=== PATIENT | female | born 1965 | race Caucasian/White ===

== ENCOUNTER 2017-07-12 17:24 | Inpatient (IN) | payer BC ==
[~2017-07-12] VITALS: Ht 162.6 cm; Wt 76.0 kg
[~2017-07-12 17:24] MED LIST: CHOL100027 PO; CLX20 PO; ETAN50IN2 SQ; FOLI1TAB8 PO; MELO7.5T7 PO; METHOTREXATE SQ; METO25TA4 PO; NRN300 PO; NRN600 PO; NUVIGIL PO; SITA1TAB PO; TPRSR/25 PO; ZOLP10TA PO
[2017-07-12] MEDS ORDERED: ALBUT/IPRATROP 3MG/0.5MG NEB 3 ML VIAL INH ONE (17:45)
--- NOTE | 2017-07-12 18:02 | DIAGNOSTIC IMAGING REPORT ---
CHEST ONE VIEW PORTABLE CLINICAL HISTORY: 51 years-old Female presenting with Sepsis. TECHNIQUE: Portable upright AP view of the chest was obtained. COMPARISON: 08/07/2015. FINDINGS: Atherosclerosis of aortic arch. Cardiac silhouette enlarged. Mild pulmonary vascular prominence. No focal opacity. No large effusion or pneumothorax. Osseous structures normal. Upper abdomen normal. IMPRESSION: 1. Cardiomegaly with possible mild volume overload. No focal infiltrate to suggest pneumonia or pulmonary edema. Electronically signed by: Conrad Davis M.D. 07/12/2017 6:00 PM Dictated Date/Time: 07/12/2017 6:00 PM
[2017-07-12 18:03] VITALS: PULSE 92; O2SAT 93
[2017-07-12] MEDS ORDERED: GABA-113 PO (18:03)
[2017-07-12 18:32] LABS: BASO % 0.3 %; BASO ABS # 0.02 K/uL (0-0.2); EOS % 0.6 %; EOS ABS # 0.05 K/uL (0-0.5); HEMATOCRIT 42.4 % (37-47); HEMOGLOBIN 14.7 g/dL (12.0-16.0); IG# 0.04 K/uL (0.00-0.02); LYMPH % 22.8 %; LYMPH ABS # 1.82 K/uL (1.2-3.4); MEAN CELL VOLUME 85.7 fL (80-100); MEAN CORPUSCULAR HEMOGLOBIN 29.7 pg (25-34); MEAN CORPUSCULAR HGB CONC 34.7 g/dl (32-36); MEAN PLATELET VOLUME 9.4 fL (7.4-10.4); MONO % 11.6 %; MONO ABS # 0.93 K/uL (0.11-0.59); NEUT % 64.2 %; NEUT ABS # 5.14 K/uL (1.4-6.5); PLATELET COUNT 150 K/uL (130-400); RED CELL DISTRIBUTION WIDTH CV 14.1 % (11.5-14.5); RED CELL DISTRIBUTION WIDTH SD 43.9 fL (36.4-46.3)
[2017-07-12 18:41] LABS: PTT PATIENT 30.8 SECONDS (21.0-31.0)
[2017-07-12] MEDS ORDERED: OPTIRAY 320 IV PRN (18:45)
[2017-07-12 18:59] LABS: ALBUMIN 3.5 gm/dl (3.4-5.0); CALCIUM 8.6 mg/dl (8.5-10.1); CREATININE 0.75 mg/dl (0.60-1.20); POTASSIUM 3.4 mmol/L (3.5-5.1)
[2017-07-12 19:01] LABS: TOTAL PROTEIN 7.5 gm/dl (6.4-8.2)
[2017-07-12 20:05] LABS: INFLUENZA A PCR Neg for Influ A (NEG); INFLUENZA B PCR Neg for Influ B (NEG)
--- NOTE | 2017-07-12 20:14 | DIAGNOSTIC IMAGING REPORT ---
(CHEST FOR PE) ANGIO WITH CLINICAL HISTORY: 51 years-old Female presenting with ^eval for PE ^hypoxic, cough, shortness of breath. TECHNIQUE: Multidetector CT angiography of the chest was performed after administration of intravenous contrast. 3-D volumetric and/or maximum intensity projection (MIP) images were subsequently reconstructed for review. IV contrast: 108 mL of Optiray 320. A dose lowering technique was used consistent with the principles of ALARA (as low as reasonably achievable). COMPARISON: None. CT DOSE (mGy.cm): The estimated cumulative dose is 500.11 mGy.cm. FINDINGS: Field Rep topogram: Unremarkable. Pulmonary vasculature: The study is adequate for assessment of the pulmonary vascular tree. No filling defect within the pulmonary arteries to suggest embolus. Main pulmonary artery enlarged measuring 3.6 cm in diameter. No flattening of the interventricular septum. No intracardiac filling defect. No reflux of contrast into the hepatic veins. Remaining chest: On soft tissue windows, normal thyroid and thoracic inlet. No axillary, supraclavicular, hilar, or mediastinal lymphadenopathy. Atherosclerosis of the aorta. Multichamber enlargement of the heart. Coronary artery calcification. Small pericardial effusion. No pleural effusion. Hepatic steatosis. On lung windows, patchy groundglass opacities in all 5 lobes minimal subsegmental bronchial debris. Bronchial wall thickening. Central airways patent. Evaluation of lung parenchyma is mildly degraded due to respiratory motion artifact. On bone windows, normal osseous structures. IMPRESSION: 1. No evidence of pulmonary embolus. 2. Patchy groundglass opacities involving all 5 lobes consistent with multifocal bronchopneumonia, likely atypical pneumonia. This should be followed to resolution. 3. Small pericardial effusion. 4. Hepatic steatosis. Electronically signed by: Conrad Davis M.D. 07/12/2017 8:12 PM Dictated Date/Time: 07/12/2017 8:06 PM
[2017-07-12] MEDS ORDERED: PIPERACILLIN/TAZOBACTAM 4.5 GM/100ML D5W IV STA (20:17)
[2017-07-12] MEDS ORDERED: AZITHROMYCIN IV 500 MG in DEXTROSE 5% 250ML 250 ML IV ONE (20:30)
--- NOTE | 2017-07-12 20:31 | EMERGENCY ROOM VISIT NOTE ---
History Report prepared by Dino: Franklyn Zeng Under the Supervision of: Dr. Leon Vargas M.D. First contact with patient: 17:37 Chief Complaint: ILLNESS Stated Complaint: FEVER, COUGH, LOW O2 History of Present Illness The patient is a 51 year old female who presents to the Emergency Room with complaints of constant dyspnea beginning three days ago. The patient states that she was at her doctor today who referred her to the emergency department for her low oxygen saturation. She notes that she was given a nebulizer treatment while at the doctors. She reports that she has been feeling ill for the last few days. The patient states that she has to make herself cough, and she notes that she brings up a clear/white substance when she coughs. She also complains of a fever, vomiting, and body aches. She notes that her fever has been between 100-103. She denies any CP, rhinorrhea, abdominal pain, congestion , sorethroat, and leg pain. She reports that she does not have a history of COPD and is not normally on oxygen. The patient states that she has a history of rheumatoid arthritis, ITP, still's disease, type two diabetes, and sleep apnea. Source of History: patient Onset: three days ago Position: chest Quality: other (SOB) Timing: constant Associated Symptoms: + fevers (100-103), + cough (productive), + vomiting, No sorethroat, No chest pain, No abdominal pain Note: The patient also complains of body aches. The patient also denies any rhinorrhea , congestion, and leg pain. Review of Systems See HPI for pertinent positives & negatives. A total of 10 systems reviewed and were otherwise negative. Past Medical & Surgical Medical Problems: (1) History of ITP (2) Hypoxia (3) Pneumonia (4) Rheumatoid arthritis (5) Sleep apnea (6) Still's disease (7) Type 2 diabetes mellitus Family History No pertinent family history stated. Social History Smoking Status: Current Every Day Smoker Alcohol Use: none Marital Status: Housing Status: lives with family Occupation Status: employed Current/Historical Medications Scheduled Cholecalciferol (Vitamin D 1000 Unit), 2,000 INTER.UNIT PO QPM Citalopram (Celexa *), 20 MG PO QPM Etanercept (Enbrel), 0.98 ML SQ WK Folic Acid (Folvite), 3 MG PO QPM Gabapentin (Neurontin), 600 MG PO TID Meloxicam (Mobic), 15 MG PO QPM Metoprolol Succinate (Metoprolol Succinate ER), 25 MG PO TID Sitagliptin-Metformin Hcl (Janumet Xr), Unknown Dose PO DAILY Zolpidem Tartrate (Ambien), 10 MG PO HS PRN Allergies Coded Allergies: No Known Allergies (Verified , 07/12/17) Physical Exam Vital Signs Date Time Temp Pulse Resp B/P (MAP) Pulse Ox O2 Delivery O2 Flow Rate FiO2 07/12/17 19:58 96 20 102/62 95 Nasal Cannula 6.0 07/12/17 19:08 102 91 Nasal Cannula 6.0 07/12/17 19:05 90 Nasal Cannula 6.0 07/12/17 18:53 130/71 07/12/17 18:52 101 18 94/62 95 Nebulizer 07/12/17 18:03 92 20 93 Nasal Cannula 5.0 07/12/17 17:32 38.2 101 18 117/79 83 Room Air Physical Exam Constitutional: Vital signs reviewed. Hypoxic on oxygen, oxygen saturation 83% on 4L. Eyes: Pupils are equal round reactive to light. Conjunctiva are noninjected. ENT: Pharynx is clear without erythema or exudate. Mucous membranes are moist. Neck supple without meningeal signs. Respiratory: Breath sounds equal bilaterally, diminished breath sounds bilaterally with inspiratory and expiratory wheezing. Cardiovascular: Regular rate and rhythm. No rubs or gallops. GI: Soft, nondistended and nontender. Bowel sounds are present. Musculoskeletal: No peripheral edema. No lower extremity tenderness. Integumentary: No cyanosis. Neurological: The patient is awake and alert. No focal deficits. Psychiatric: Normal affect. Medical Decision & Procedures ER Provider Diagnostic Interpretation: Radiology results as stated below per my review and the radiologist's interpretation: CHEST ONE VIEW PORTABLE CLINICAL HISTORY: 51 years-old Female presenting with Sepsis. TECHNIQUE: Portable upright AP view of the chest was obtained. COMPARISON: 08/07/2015. FINDINGS: Atherosclerosis of aortic arch. Cardiac silhouette enlarged. Mild pulmonary vascular prominence. No focal opacity. No large effusion or pneumothorax. Osseous structures normal. Upper abdomen normal. IMPRESSION: 1. Cardiomegaly with possible mild volume overload. No focal infiltrate to suggest pneumonia or pulmonary edema. Electronically signed by: Conrad Davis M.D. 07/12/2017 6:00 PM (CHEST FOR PE) ANGIO WITH CLINICAL HISTORY: 51 years-old Female presenting with ^eval for PE ^hypoxic, cough, shortness of breath. TECHNIQUE: Multidetector CT angiography of the chest was performed after administration of intravenous contrast. 3-D volumetric and/or maximum intensity projection (MIP) images were subsequently reconstructed for review. IV contrast: 108 mL of Optiray 320. A dose lowering technique was used consistent with the principles of ALARA (as low as reasonably achievable). COMPARISON: None. CT DOSE (mGy.cm): The estimated cumulative dose is 500.11 mGy.cm. FINDINGS: Filenet Architect topogram: Unremarkable. Pulmonary vasculature: The study is adequate for assessment of the pulmonary vascular tree. No filling defect within the pulmonary arteries to suggest embolus. Main pulmonary artery enlarged measuring 3.6 cm in diameter. No flattening of the interventricular septum. No intracardiac filling defect. No reflux of contrast into the hepatic veins. Remaining chest: On soft tissue windows, normal thyroid and thoracic inlet. No axillary, supraclavicular, hilar, or mediastinal lymphadenopathy. Atherosclerosis of the aorta. Multichamber enlargement of the heart. Coronary artery calcification. Small pericardial effusion. No pleural effusion. Hepatic steatosis. On lung windows, patchy groundglass opacities in all 5 lobes minimal subsegmental bronchial debris. Bronchial wall thickening. Central airways patent. Evaluation of lung parenchyma is mildly degraded due to respiratory motion artifact. On bone windows, normal osseous structures. IMPRESSION: 1. No evidence of pulmonary embolus. 2. Patchy groundglass opacities involving all 5 lobes consistent with multifocal bronchopneumonia, likely atypical pneumonia. This should be followed to resolution. 3. Small pericardial effusion. 4. Hepatic steatosis. Electronically signed by: Conrad Davis M.D. 07/12/2017 8:12 PM Laboratory Results 07/12/17 18:15 Red Blood Count 4.95, Mean Corpuscular Volume 85.7, Mean Corpuscular Hemoglobin 29.7, Mean Corpuscular Hemoglobin Concent 34.7, Mean Platelet Volume 9.4, Neutrophils (%) (Auto) 64.2, Lymphocytes (%) (Auto) 22.8, Monocytes (%) (Auto) 11.6, Eosinophils (%) (Auto) 0.6, Basophils (%) (Auto) 0.3, Neutrophils # (Auto ) 5.14, Lymphocytes # (Auto) 1.82, Monocytes # (Auto) 0.93, Eosinophils # (Auto ) 0.05, Basophils # (Auto) 0.02 07/12/17 18:15 Test 07/12/17 18:15 07/12/17 18:26 07/12/17 19:06 07/12/17 20:27 White Blood Count 8.00 K/uL (4.8-10.8) Red Blood Count 4.95 M/uL (4.2-5.4) Hemoglobin 14.7 g/dL (12.0-16.0) Hematocrit 42.4 % (37-47) Mean Corpuscular Volume 85.7 fL (80-100) Mean Corpuscular Hemoglobin 29.7 pg (25-34) Mean Corpuscular Hemoglobin Concent 34.7 g/dl (32-36) Platelet Count 150 K/uL (130-400) Mean Platelet Volume 9.4 fL (7.4-10.4) Neutrophils (%) (Auto) 64.2 % Lymphocytes (%) (Auto) 22.8 % Monocytes (%) (Auto) 11.6 % Eosinophils (%) (Auto) 0.6 % Basophils (%) (Auto) 0.3 % Neutrophils # (Auto) 5.14 K/uL (1.4-6.5) Lymphocytes # (Auto) 1.82 K/uL (1.2-3.4) Monocytes # (Auto) 0.93 K/uL (0.11-0.59) Eosinophils # (Auto) 0.05 K/uL (0-0.5) Basophils # (Auto) 0.02 K/uL (0-0.2) RDW Standard Deviation 43.9 fL (36.4-46.3) RDW Coefficient of Variation 14.1 % (11.5-14.5) Immature Granulocyte % (Auto) 0.5 % Immature Granulocyte # (Auto) 0.04 K/uL (0.00-0.02) Prothrombin Time 11.0 SECONDS (9.0-12.0) Prothromb Time International Ratio 1.0 (0.9-1.1) Activated Partial Thromboplast Time 30.8 SECONDS (21.0-31.0) Partial Thromboplastin Ratio 1.2 Anion Gap 7.0 mmol/L (3-11) Est Creatinine Clear Calc Drug Dose 88.6 ml/min Estimated GFR () 107.7 Estimated GFR (Non- 92.9 BUN/Creatinine Ratio 6.8 (10-20) Calcium Level 8.6 mg/dl (8.5-10.1) Total Bilirubin 0.5 mg/dl (0.2-1) Aspartate Amino Transf (AST/SGOT) 19 U/L (15-37) Alanine Aminotransferase (ALT/SGPT) 32 U/L (12-78) Alkaline Phosphatase 82 U/L (45-117) Total Protein 7.5 gm/dl (6.4-8.2) Albumin 3.5 gm/dl (3.4-5.0) Globulin 4.0 gm/dl (2.5-4.0) Albumin/Globulin Ratio 0.9 (0.9-2) Bedside Lactic Acid Venous 1.19 mmol/L (0.90-1.70) Influenza Type A (RT-PCR) Neg for Influ A (NEG) Influenza Type B (RT-PCR) Neg for Influ B (NEG) Laboratory results as reviewed by me. Medications Administered Medications (Trade) Dose Ordered Sig/Nino Route Start Time Stop Time Status Last Admin Dose Admin Albuterol/ Ipratropium (Duoneb) 12 ml ONE ONCE INH 07/12/17 17:45 07/12/17 17:46 DC 07/12/17 18:03 12 ML ECG Per My Interpretation Indication: other (chest tightness) Rate (beats per minute): 106 Rhythm: sinus tachycardia Findings: other (No ST elevation, no PVCs) ED Course 1738: The patient was evaluated in room A9. A complete history and physical exam was performed. 174: Duoneb 12ml INH 1753: I called out for respiratory. 1800: Respiratory came down to see the patient. They increased her O2 to 5L and she was 93%. They state that they would prefer not to put her on BiPAP at this time. I felt as thought this was reasonable. The patient will continue to use a nebulizer. 1821: I reevaluated and updated the patient. I recommended a CT chest and she is agreeable. 2019: I reevaluated and updated the patient on her test results. Discussed the patient's case with Dr. Lu - HospitalistTessa. He will evaluate the patient for further treatment and care. Medical Decision This is a 51-year-old female presents with fever, cough and shortness of breath. Differential diagnosis includes pneumonia, sepsis, influenza, ARDS, pulmonary embolism. I did perform a limited focused review of portions of the patient's old chart on the electronic medical record. The patient has had no recent pertinent visits to this hospital. I did evaluate the patient as noted above. Patient is presenting with shortness of breath. She has poor air entry bilaterally with inspiratory and expiratory wheezing. She has had a fever and states she forced herself to have a cough which is productive. IV access was established. The patient was placed on a continuous cardiac rn. I did treat her with an hour-long DuoNeb. I was going to place her on BiPAP because her O2 saturation was only in the 80s on 4 L. When respiratory arrived her O2 saturation came up to the 90s and so we held off on the BiPAP. I did order and personally review the patient's 12-lead EKG and chest x-ray as described above. Her chest x-ray shows cardiomegaly without evidence of pneumonia. I did order and review the patient's blood work as noted in the electronic medical record. After discussion with the patient, I did order a CT of the chest. I did review the images myself as well as the radiology report as described above. There is no evidence of pulmonary embolism. She does have diffuse groundglass opacities consistent with multifocal bronchopneumonia. I did treat her with IV Zithromax and Zosyn. I did discuss the test results with the patient. On reexamination her wheezing is much improved and her air entry is also improved. She is satting 93% on 4 L. I did discuss the case with the hospitalist and case work aide. Medication Reconcilliation Current Medication List: was personally reviewed by me Blood Pressure Screening Patient's blood pressure: Normal blood pressure Blood pressure disposition: Did not require urgent referral Impression Primary Impression: Hypoxia Additional Impression: Multifocal pneumonia Critical Care I have personally spent 40 minutes of critical care time in the direct management of this patient. This includes bedside care, interpretation of diagnostic studies, and testing, discussion with consultants, patient, and family members, and other required patient management activities. This 40 minutes is in excess of all separately billable procedures. Scribe Attestation The scribe's documentation has been prepared under my direct and personally reviewed by me in its entirety. I confirm that the note above accurately reflects all work, treatment, procedures, and medical decision making performed by me. Departure Information Dispostion Being Evaluated By Hospitalist Referrals Kely Campbell D.O. (PCP) Patient Instructions My [facility] Problem Qualifiers
[2017-07-12] MEDS ORDERED: GLUCAGON FOR INJ 1 MG VIAL SQ PRN (20:45)
[2017-07-12] MEDS ORDERED: ALUMINUM/MAGNESIUM/SIMETH (MAALOX MAX) 30 ML UDC PO PRN (20:45)
[2017-07-12] MEDS ORDERED: GLUCOSE 10 TABS/TUBE PO PRN (20:45)
[2017-07-12] MEDS ORDERED: ACETAMINOPHEN 325 MG TAB PO PRN (20:45)
[2017-07-12] MEDS ORDERED: DEXTROSE 50% 50 ML SYR IV PRN (20:45)
[2017-07-12] MEDS ORDERED: GLUCOSE 40% GEL 15 GM TUBE PO PRN (20:45)
[2017-07-12] MEDS ORDERED: MAGNESIUM HYDROXIDE SUSP 30 ML UDC PO PRN (20:45)
[2017-07-12] MEDS ORDERED: POLYETHYLENE (MIRALAX) 17 GM PACK PO PRN (20:45)
[2017-07-12] MEDS ORDERED: CARBOHYDRATES FOR HYPOGLYCEMIA PO PRN (20:45)
[2017-07-12] MEDS ORDERED: NITROGLYCERIN 0.4 MG SL PER TAB CHARGE SL PRN (20:45)
[2017-07-12] MEDS ORDERED: ONDANSETRON INJ 2 MG/ML 2 ML VIAL IV PRN (20:45)
[2017-07-12] MEDS ORDERED: CITALOPRAM 20 MG TAB PO SCH (21:00)
[2017-07-12] MEDS ORDERED: HEPARIN SOD 5000 UNIT/0.5 ML CARP SQ SCH (21:00)
--- NOTE | 2017-07-12 21:37 | History and Physical ---
History & Physical Date & Time of Service: July 12, 2017 at 21:36 Chief Complaint: Fever, Cough, Low O2 Primary Care Physician: Kely Campbell D.O. History of Present Illness Source: patient This is a 51-year-old female with history of RA on Enbrel, history of autoimmune thrombocytopenia ,type 2 diabetes Presented to ED with complaint of shortness of breath, cough, fever chills ongoing for the last 5 days Reports of dyspnea on exertion especially when climbing up flight of stairs No syncope Patient reports of having dry cough, decreased appetite since last Wednesday, developed diarrhea which lasted for about 3 days She noticed to have a fever 103 last night Denies of any sinus congestion or postnasal drip report of having intermittent wheeze for the last days, using her albuterol inhaler about every 4 hours with minimal relief No complaint of chest pain, no dizzy spell, no palpitation Patient has history of [id number] smoking She is on Enbrel weekly for history of rheumatoid arthritis Has not been taking her Enbrel for the last 2 weeks secondary to illness In the ER patient was found to be hypoxic with SPO2 88% in room air Oxygenation improved to 92% on 6 L O2 via nasal cannula-patient is not on home O2 During my time of interview patient states she feels completely fine Denies of any shortness of breath, no chest heaviness Afebrile in ER Past Medical/Surgical History Medical Problems: (1) Fever (2) History of ITP (3) Hypoxia (4) Pneumonia (5) Rheumatoid arthritis (6) Sleep apnea (7) Still's disease (8) Type 2 diabetes mellitus Social History Smoking Status: Current Every Day Smoker Marital Status: Housing status: lives with family Occupational Status: employed Immunizations History of Influenza Vaccine: No History of Tetanus Vaccine?: No History of Pneumococcal: No History of Hepatitis B Vaccine: No Multi-Drug Resistant Organisms History of MDRO: No Allergies Coded Allergies: No Known Allergies (Verified , 07/12/17) Home Medications Scheduled Cholecalciferol (Vitamin D 1000 Unit), 2,000 INTER.UNIT PO QPM Citalopram (Celexa *), 20 MG PO QPM Etanercept (Enbrel), 0.98 ML SQ WK Folic Acid (Folvite), 3 MG PO QPM Gabapentin (Neurontin), 600 MG PO TID Meloxicam (Mobic), 15 MG PO QPM Metoprolol Succinate (Metoprolol Succinate ER), 25 MG PO TID Sitagliptin-Metformin Hcl (Janumet Xr), Unknown Dose PO DAILY Zolpidem Tartrate (Ambien), 10 MG PO HS PRN Review of Systems Constitutional: + fever, + chills, + weakness, + fatigue Respiratory: + cough, + sputum, + wheezing, + shortness of breath, + dyspnea on exertion Cardiovascular: No chest pain, No orthopnea, No PND, No edema, No claudication , No palpitations, No problem reported Abdomen: + diarrhea Psychiatric: + anxiety Endocrine: + fatigue Physical Exam Vital Signs Date Time Temp Pulse Resp B/P (MAP) Pulse Ox O2 Delivery O2 Flow Rate FiO2 07/12/17 21:03 95 16 99/61 91 Nasal Cannula 6.0 07/12/17 19:58 96 20 102/62 95 Nasal Cannula 6.0 07/12/17 19:08 102 91 Nasal Cannula 6.0 07/12/17 19:05 90 Nasal Cannula 6.0 07/12/17 18:53 130/71 07/12/17 18:52 101 18 94/62 95 Nebulizer 07/12/17 18:03 92 20 93 Nasal Cannula 5.0 07/12/17 17:32 38.2 101 18 117/79 83 Room Air General Appearance: no apparent distress Head: normocephalic, atraumatic Eyes: normal inspection, PERRL, EOMI, sclerae normal Neck: thyroid normal, no JVD, no carotid bruits, trachea midline Respiratory/Chest: no respiratory distress, no accessory muscle use, + wheezing Cardiovascular: no JVD, no murmur, normal peripheral pulses, + bradycardia Abdomen/GI: normal bowel sounds, non tender, soft Extremities/Musculoskelatal: normal capillary refill, no pedal edema, normal range of motion (Family with) Neurologic/Psych: no motor/sensory deficits, alert, normal reflexes, oriented x 3 Skin: normal color, warm/dry, no rash Diagnostics Laboratory Results Results Past 24 Hours Test 07/12/17 18:15 07/12/17 18:26 07/12/17 19:06 07/12/17 20:35 Range/Units White Blood Count 8.00 4.8-10.8 K/uL Red Blood Count 4.95 4.2-5.4 M/uL Hemoglobin 14.7 12.0-16.0 g/dL Hematocrit 42.4 37-47 % Mean Corpuscular Volume 85.7 80-100 fL Mean Corpuscular Hemoglobin 29.7 25-34 pg Mean Corpuscular Hemoglobin Concent 34.7 32-36 g/dl Platelet Count 150 130-400 K/uL Mean Platelet Volume 9.4 7.4-10.4 fL Neutrophils (%) (Auto) 64.2 % Lymphocytes (%) (Auto) 22.8 % Monocytes (%) (Auto) 11.6 % Eosinophils (%) (Auto) 0.6 % Basophils (%) (Auto) 0.3 % Neutrophils # (Auto) 5.14 1.4-6.5 K/uL Lymphocytes # (Auto) 1.82 1.2-3.4 K/uL Monocytes # (Auto) 0.93 0.11-0.59 K/uL Eosinophils # (Auto) 0.05 0-0.5 K/uL Basophils # (Auto) 0.02 0-0.2 K/uL RDW Standard Deviation 43.9 36.4-46.3 fL RDW Coefficient of Variation 14.1 11.5-14.5 % Immature Granulocyte % (Auto) 0.5 % Immature Granulocyte # (Auto) 0.04 0.00-0.02 K/uL Prothrombin Time 11.0 9.0-12.0 SECONDS Prothromb Time International Ratio 1.0 0.9-1.1 Activated Partial Thromboplast Time 30.8 21.0-31.0 SECONDS Partial Thromboplastin Ratio 1.2 Sodium Level 139 136-145 mmol/L Potassium Level 3.4 3.5-5.1 mmol/L Chloride Level 105 98-107 mmol/L Carbon Dioxide Level 27 21-32 mmol/L Anion Gap 7.0 3-11 mmol/L Blood Urea Nitrogen 5 7-18 mg/dl Creatinine 0.75 0.60-1.20 mg/dl Est Creatinine Clear Calc Drug Dose 88.6 ml/min Estimated GFR () 107.7 Estimated GFR (Non- 92.9 BUN/Creatinine Ratio 6.8 10-20 Random Glucose 124 70-99 mg/dl Calcium Level 8.6 8.5-10.1 mg/dl Total Bilirubin 0.5 0.2-1 mg/dl Aspartate Amino Transf (AST/SGOT) 19 15-37 U/L Alanine Aminotransferase (ALT/SGPT) 32 12-78 U/L Alkaline Phosphatase 82 45-117 U/L Total Protein 7.5 6.4-8.2 gm/dl Albumin 3.5 3.4-5.0 gm/dl Globulin 4.0 2.5-4.0 gm/dl Albumin/Globulin Ratio 0.9 0.9-2 Bedside Lactic Acid Venous 1.19 0.90-1.70 mmol/L Influenza Type A (RT-PCR) Neg for Influ A NEG Influenza Type B (RT-PCR) Neg for Influ B NEG Arterial Blood pH 7.38 7.35-7.45 Arterial Blood Partial Pressure CO2 45 35-46 mmHg Arterial Blood Partial Pressure O2 63 80-95 mm/Hg Arterial Blood HCO3 26 19-24 mmol/L Arterial Blood Oxygen Saturation 90.8 90-95 % Arterial Blood Base Excess 0.2 -9-1.8 mEq/L Arterial Blood Gas Delivery 6 L Quique Test POS POS Test 07/12/17 20:46 Range/Units Procalcitonin 0.06 0-0.5 ng/ml Microbiology Results 07/12/17 Blood Culture, Received Pending 07/12/17 Blood Culture, Received Pending Diagnostic Radiology CT CHEST WITH CONTRAST : IMPRESSION: 1. No evidence of pulmonary embolus. 2. Patchy groundglass opacities involving all 5 lobes consistent with multifocal bronchopneumonia, likely atypical pneumonia. This should be followed to resolution. 3. Small pericardial effusion. 4. Hepatic steatosis. EKG Normal sinus rhythm Prolonged QTC more than 500 Impression Assessment and Plan ACUTE HYPOXEMIC RESPIRATORY FAILURE/SECONDARY TO PNEUMONIA/COPD EXACERBATION CT chest with contrast shows no evidence of PE/ground glass opacity -multilobar pneumonia worsening of respiratory status secondary to immunocompromised status on Enbrel for RA/possible underlying COPD due to prolonged history of smoking Continue supplemental O2 Empiric antibiotic with IV Zosyn As needed neb treatment Repeat chest x-ray in next 48 hours to's evaluate for improvement Ordered for IV steroids secondary to wheeze Pulmonology eval requested Patient may need to step exercise prior to discharge to assess for home oxygen needs DIARRHEA Resolved approximately 2 days ago-per patient Ordered for C. difficile toxin assay HYPOKALEMIA Possible secondary to GI loss/diarrhea Replaced in ER Continue to monitor PRP Check mag level PROLONGED QTC Avoid medication that can worsen QTC prolongation Zithromax /Zofran discontinued Avoid quinolones Follow daily pick up man potassium/magnesium level closely HISTORY OF TOBACCO ABUSE Smokes a pack of cigarettes a day Ordered for nicotine patch Smoking cessation counseling provided HISTORY OF RHEUMATOID ARTHRITIS On Enbrel q. weekly Patient has not taken it last 2 weeks secondary to illness We will continue to hold due to multilobar pneumonia HISTORY OF AUTOIMMUNE THROMBOCYTOPENIA Platelet count within normal limits 150 K CODE STATUS: Full code DVT PROPHYLAXIS: Low risk Patient is active at baseline SCD and teds/patient is encouraged to ambulate Pharmacological anticoagulation avoided for history of autoimmune thrombocytopenia DISPOSITION: Expected to be discharged home when medically stable Medicine follow-up with Dr. Kely brooks that at [facility] Level of Care Telemetry Resuscitation Status FULL RESUSCITATION VTE Prophylaxis Risk Level: Moderate Given or contraindicated: T.E.D. Stockings, SCD's
[2017-07-12] MEDS ORDERED: PIPERACILL/TAZOBAC CONSULT ACTIVE PRN (21:45)
[2017-07-12] MEDS ORDERED: PROMETHAZINE HCL INJ 12.5 MG in SODIUM CHLORIDE 0.9% 50ML 50 ML IV PRN (21:45)
[2017-07-12] MEDS ORDERED: CEFTRIAXONE SOD INJ 1 GM in DEXTROSE 5% ADD-VANTAGE 50ML 50 ML IV SCH (22:00)
[2017-07-12 22:44] VITALS: O2SAT 93; BMI 29.3
[2017-07-12] MEDS ORDERED: NSS + 20MEQ KCL 1000ML 1,000 ML IV SCH (23:00)
[2017-07-12] MEDS: PIPERACILL/TAZOBAC IV 3.375 GM in DEXTROSE 5% 100ML 100 ML IV SCH (23:42)
[2017-07-12] MEDS: LEVALBUTEROL 1.25MG/0.5ML NEB INH SCH (23:46)
[2017-07-12] MEDS: IPRATROPIUM BROMIDE NEB SOLN 0.02% 2.5 ML VIAL INH SCH (23:47)
[2017-07-12 23:48] VITALS: PULSE 93; O2SAT 92
[2017-07-12 23:59] VITALS: O2SAT 92
[2017-07-13] VITALS (12 sets, daily range): BP systolic 118–139; BP diastolic 69–97; PULSE 80–101; TEMP 37.2–37.9; O2SAT 91–99; BMI 29.4
[2017-07-13] MEDS ORDERED: LEVALBUTEROL/IPRATROPIUM NEB INH SCH
[2017-07-13] MEDS: METOPROLOL SUCC 25MG EXT REL TAB PO SCH ×4 (00:14→20:56)
[2017-07-13] MEDS: GABAPENTIN 300 MG CAP PO SCH ×4 (00:14→20:56)
[2017-07-13] MEDS: CHOLECALCIFEROL 1000 INTER.UNIT TAB PO SCH ×2 (00:16→20:56)
[2017-07-13] MEDS: NICOTINE 21 MG/24 HR TDSY TD SCH ×2 (00:16→07:56)
[2017-07-13] MEDS: ZOLPIDEM TARTRATE 10 MG TAB PO PRN (00:17)
[2017-07-13] MEDS: INSULIN ASPART 100 UNITS/ML 3 ML PEN SC SCH ×5 (00:22→20:58)
[2017-07-13] MEDS: IPRATROPIUM BROMIDE NEB SOLN 0.02% 2.5 ML VIAL INH SCH ×6 (04:00→22:44)
[2017-07-13] MEDS: LEVALBUTEROL 1.25MG/0.5ML NEB INH SCH ×6 (04:00→22:44)
[2017-07-13 04:40] LABS: HEMATOCRIT 41.4 % (37-47); HEMOGLOBIN 13.8 g/dL (12.0-16.0); MEAN CELL VOLUME 87.5 fL (80-100); MEAN CORPUSCULAR HEMOGLOBIN 29.2 pg (25-34); MEAN CORPUSCULAR HGB CONC 33.3 g/dl (32-36); MEAN PLATELET VOLUME 10.1 fL (7.4-10.4); PLATELET COUNT 161 K/uL (130-400); RED CELL DISTRIBUTION WIDTH SD 45.4 fL (36.4-46.3); WHITE BLOOD COUNT 7.04 K/uL (4.8-10.8)
[2017-07-13 05:00] LABS: CALCIUM 8.1 mg/dl (8.5-10.1); CREATININE 0.93 mg/dl (0.60-1.20); POTASSIUM 3.3 mmol/L (3.5-5.1)
[2017-07-13 06:23] LABS: HEMOGLOBIN A1C 8.1 % (4.5-5.6)
[2017-07-13] MEDS ORDERED: POTASSIUM CHLORIDE 20 MEQ TABCR PO ONE (07:00)
[2017-07-13] MEDS: PIPERACILL/TAZOBAC IV 3.375 GM in DEXTROSE 5% 100ML 100 ML IV SCH ×2 (07:59→16:22)
[2017-07-13] MEDS ORDERED: AZITHROMYCIN 250 MG TAB PO SCH (09:00)
--- NOTE | 2017-07-13 11:19 | Progress Note ---
Medicine Progress Note Date & Time of Visit: July 13, 2017 at 11:19. Subjective seen resting in bed, comfortable states she feels slightly better than yesterday less shortness of breath denies cough, chest pain no abdominal pain, diarrhea no other symptoms Objective Last 8 Hrs Date Time Temp Pulse Resp B/P (MAP) Pulse Ox O2 Delivery O2 Flow Rate FiO2 07/13/17 10:44 37.7 29 131/97 (108) 92 High Flow Oxygen 7.0 07/13/17 08:00 Mask 7.0 07/13/17 07:25 101 18 94 Mask 7.0 07/13/17 06:57 37.9 89 26 139/94 (109) 93 6.0 07/13/17 04:00 92 Nasal Cannula 6.0 07/13/17 03:32 37.3 95 22 134/69 (90) 92 Physical Exam: General- oriented x 3, not in distress, speaks in sentences with no effort Head- atraumatic Eyes- PERRL, EOMI, anicteric ENT- oropharynx clear Neck- supple, no JVD Lungs- clear breath sounds bilaterally, no rales/wheezes Heart- regular rhythm; no murmur, normal rate Abdomen- normal bowel sounds, soft, nontender, non distended Extremities- no pretibial edema, no calf tenderness; peripheral pulses intact Neuro- alert, oriented x 3; no gross focal deficits Skin- warm & dry Laboratory Results: Last 24 Hours Test 07/12/17 18:15 07/12/17 18:26 07/12/17 19:06 07/12/17 20:35 White Blood Count 8.00 K/uL Red Blood Count 4.95 M/uL Hemoglobin 14.7 g/dL Hematocrit 42.4 % Mean Corpuscular Volume 85.7 fL Mean Corpuscular Hemoglobin 29.7 pg Mean Corpuscular Hemoglobin Concent 34.7 g/dl Platelet Count 150 K/uL Mean Platelet Volume 9.4 fL Neutrophils (%) (Auto) 64.2 % Lymphocytes (%) (Auto) 22.8 % Monocytes (%) (Auto) 11.6 % Eosinophils (%) (Auto) 0.6 % Basophils (%) (Auto) 0.3 % Neutrophils # (Auto) 5.14 K/uL Lymphocytes # (Auto) 1.82 K/uL Monocytes # (Auto) 0.93 K/uL Eosinophils # (Auto) 0.05 K/uL Basophils # (Auto) 0.02 K/uL RDW Standard Deviation 43.9 fL RDW Coefficient of Variation 14.1 % Immature Granulocyte % (Auto) 0.5 % Immature Granulocyte # (Auto) 0.04 K/uL Prothrombin Time 11.0 SECONDS Prothromb Time International Ratio 1.0 Activated Partial Thromboplast Time 30.8 SECONDS Partial Thromboplastin Ratio 1.2 Sodium Level 139 mmol/L Potassium Level 3.4 mmol/L Chloride Level 105 mmol/L Carbon Dioxide Level 27 mmol/L Anion Gap 7.0 mmol/L Blood Urea Nitrogen 5 mg/dl Creatinine 0.75 mg/dl Est Creatinine Clear Calc Drug Dose 88.6 ml/min Estimated GFR () 107.7 Estimated GFR (Non- 92.9 BUN/Creatinine Ratio 6.8 Random Glucose 124 mg/dl Calcium Level 8.6 mg/dl Total Bilirubin 0.5 mg/dl Aspartate Amino Transf (AST/SGOT) 19 U/L Alanine Aminotransferase (ALT/SGPT) 32 U/L Alkaline Phosphatase 82 U/L Total Protein 7.5 gm/dl Albumin 3.5 gm/dl Globulin 4.0 gm/dl Albumin/Globulin Ratio 0.9 Bedside Lactic Acid Venous 1.19 mmol/L Influenza Type A (RT-PCR) Neg for Influ A Influenza Type B (RT-PCR) Neg for Influ B Arterial Blood pH 7.38 Arterial Blood Partial Pressure CO2 45 mmHg Arterial Blood Partial Pressure O2 63 mm/Hg Arterial Blood HCO3 26 mmol/L Arterial Blood Oxygen Saturation 90.8 % Arterial Blood Base Excess 0.2 mEq/L Arterial Blood Gas Delivery 6 L Quique Test POS Test 07/12/17 20:46 07/13/17 00:01 07/13/17 04:00 07/13/17 07:31 Procalcitonin 0.06 ng/ml Bedside Glucose 183 mg/dl 154 mg/dl White Blood Count 7.04 K/uL Red Blood Count 4.73 M/uL Hemoglobin 13.8 g/dL Hematocrit 41.4 % Mean Corpuscular Volume 87.5 fL Mean Corpuscular Hemoglobin 29.2 pg Mean Corpuscular Hemoglobin Concent 33.3 g/dl RDW Standard Deviation 45.4 fL RDW Coefficient of Variation 14.0 % Platelet Count 161 K/uL Mean Platelet Volume 10.1 fL Sodium Level 141 mmol/L Potassium Level 3.3 mmol/L Chloride Level 106 mmol/L Carbon Dioxide Level 28 mmol/L Anion Gap 7.0 mmol/L Blood Urea Nitrogen 5 mg/dl Creatinine 0.93 mg/dl Est Creatinine Clear Calc Drug Dose 72.9 ml/min Estimated GFR () 83.1 Estimated GFR (Non- 71.7 BUN/Creatinine Ratio 5.0 Random Glucose 214 mg/dl Estimated Average Glucose 186 mg/dl Hemoglobin A1c 8.1 % Calcium Level 8.1 mg/dl Magnesium Level 1.8 mg/dl Date/Time Source Procedure Growth Status 07/12/17 19:09 Blood Blood Culture Pending Received 07/12/17 18:15 Blood Blood Culture Pending Received 07/13/17 01:20 Nasal MRSA DNA Surveillance Screen - Final Specimen Negative for MRSA by DNA Probe Complete 07/13/17 08:15 Stool C.difficile Toxin B Gene (PCR) - Final Positive for C. difficile toxin B gene Complete 07/13/17 07:50 Sputum Expectorated Sputum Gram Stain Pending Received 07/13/17 07:50 Sputum Expectorated Sputum Sputum Culture Pending Received Assessment & Plan 51 year old female with history of Rheumatoid Arthritis on Enbrel, Autoimmune Thrombocytopenia, DM presenting with cough and shortness of breath. ACUTE HYPOXEMIC RESPIRATORY FAILURE/SECONDARY TO PNEUMONIA/COPD EXACERBATION CT chest with contrast shows no evidence of PE/ground glass opacity -multilobar pneumonia worsening of respiratory status secondary to immunocompromised status on Enbrel for RA/possible underlying COPD due to prolonged history of smoking Sputum culture: pending Nasal MRSA swab: negative add Doxycycline to Zosyn IV Day 2 continue Nebs Pulmonary consulted C DIFF DIARRHEA start Vanco PO day 03/10 HYPOKALEMIA Possible secondary to GI loss/diarrhea replace, monitor also monitor Mg PROLONGED QTC resolved HISTORY OF TOBACCO ABUSE Smokes a pack of cigarettes a day Nicotine patch Smoking cessation counseling provided HISTORY OF RHEUMATOID ARTHRITIS On Enbrel q. weekly Patient has not taken it last 2 weeks secondary to illness Continue to HOLD due to multilobar pneumonia HISTORY OF AUTOIMMUNE THROMBOCYTOPENIA Platelet count within normal limits 150 K CODE STATUS: Full code DVT PROPHYLAXIS: Low risk Patient is active at baseline SCD and teds/patient is encouraged to ambulate Pharmacological anticoagulation avoided for history of autoimmune thrombocytopenia -- consider Lovenox if with prolonged hospitalization DISPOSITION: Expected to be discharged home when medically stable Medicine follow-up with Dr. Adrian lozano [facility] Current Inpatient Medications: Current Inpatient Medications Medications (Trade) Dose Ordered Sig/Nino Route Start Time Stop Time Status Last Admin Dose Admin Ioversol (Optiray 320) 100 ml UD PRN IV 07/12/17 18:45 07/16/17 18:44 Cholecalciferol (Vitamin D Tab) 2,000 inter.unit QPM PO 07/12/17 21:00 08/11/17 20:59 07/13/17 00:16 2,000 INTER.UNIT Folic Acid (Folvite Tab) 3 mg QPM PO 07/12/17 21:00 08/11/17 20:59 07/13/17 00:38 3 MG Gabapentin (Neurontin Cap) 600 mg TID PO 07/12/17 21:00 08/11/17 20:59 07/13/17 07:55 600 MG Metoprolol Succinate (Toprol Xl Tab) 25 mg TID PO 07/12/17 21:00 08/11/17 20:59 07/13/17 07:55 25 MG Zolpidem Tartrate (Ambien Tab) 10 mg HSZ PRN PO 07/12/17 20:45 08/11/17 20:44 07/13/17 00:17 10 MG Acetaminophen (Tylenol Tab) 650 mg Q4H PRN PO 07/12/17 20:45 08/11/17 20:44 Al Hydrox/Mg Hydrox/Simethicone (Maalox Max Susp) 15 ml Q4H PRN PO 07/12/17 20:45 08/11/17 20:44 Magnesium Hydroxide (Milk Of Magnesia Susp) 30 ml Q12H PRN PO 07/12/17 20:45 08/11/17 20:44 Nitroglycerin (Nitrostat Tab) 0.4 mg UD PRN SL 07/12/17 20:45 08/11/17 20:44 Polyethylene (Miralax Powder Packet) 17 gm DAILY PRN PO 07/12/17 20:45 08/11/17 20:44 Insulin Aspart (novoLOG ASPART) SLIDING SCALE If C... ACHS SC 07/12/17 21:00 08/11/17 20:59 07/13/17 07:58 3 UNITS Glucose (Glucose 40% Gel) 15-30 GRAMS 15 GRAMS... UD PRN PO 07/12/17 20:45 08/11/17 20:44 Glucose (Glucose Chew Tab) 4-8 Tablets 4 Tabl... UD PRN PO 07/12/17 20:45 08/11/17 20:44 Dextrose (Dextrose 50% 50ML Syringe) 25-50ML 25ML FOR ... UD PRN IV 07/12/17 20:45 08/11/17 20:44 Glucagon (Glucagon Inj) 1 mg UD PRN SQ 07/12/17 20:45 08/11/17 20:44 Carbohydrates (Carbohydrates For Hypoglycemia) 15-30 GRAMS 15 grams if BSG 54-69... UD PRN PO 07/12/17 20:45 08/11/17 20:44 Ipratropium [place] (Atrovent 0.02% 0.5MG/2.5ML Neb) 0.5 mg Q4R INH 07/13/17 00:00 08/12/17 00:00 07/13/17 07:25 0.5 MG Levalbuterol (Xopenex 1.25MG/ 0.5ML Neb) 1.25 mg Q4R INH 07/13/17 00:00 08/12/17 00:00 07/13/17 07:25 1.25 MG Nicotine (Nicoderm Cq 21MG Patch) 1 patch QAM TD 07/12/17 21:45 08/11/17 21:44 07/13/17 07:56 1 PATCH Miscellaneous (Remove Nicoderm Patch) 1 ea HS N/A 07/13/17 21:00 08/12/17 20:59 Piperacillin Sod/ Tazobactam Sod 3.375 gm/Dextrose 115 ml @ 28 mls/hr Q8H IV 07/13/17 00:00 07/20/17 00:00 07/13/17 07:59 28 MLS/HR Miscellaneous Information (Consult) 1 ea UD PRN N/A 07/12/17 21:45 08/11/17 21:44 Promethazine HCl 12.5 mg/Sodium Chloride 50.5 ml @ 204 mls/hr Q6H PRN IV 07/12/17 21:45 08/11/17 21:44 Doxycycline Hyclate 100 mg/ Dextrose 110 ml @ 50 mls/hr Q12H IV 07/13/17 09:00 07/20/17 08:59
[2017-07-13] MEDS: DOXYCYCLINE IV 100 MG in DEXTROSE 5% 100ML 100 ML IV SCH ×2 (11:29→21:00)
[2017-07-13] MEDS ORDERED: VANCOMYCIN HCL 125 MG/2.5ML SOLN PO SCH (11:30)
[2017-07-13] MEDS: RASPBERRY SYRUP 5 ML UDP PO SCH ×2 (11:59→17:50)
[2017-07-13] MEDS: VANCOMYCIN HCL 125 MG/2.5ML SOLN PO SCH ×2 (11:59→17:50)
--- NOTE | 2017-07-13 17:07 | PULMONARY CONSULTATION ---
DATE OF CONSULTATION: 07/13/2017 REASON FOR CONSULTATION: Bronchopneumonia. HISTORY OF PRESENT ILLNESS: A 51-year-old white female with a history of rheumatoid arthritis, currently on Enbrel and a history of autoimmune thrombocytopenia, type 2 diabetes mellitus and a significant smoking history, was admitted through the ER onto the hospitalist service today. The patient has been ill for the past 5-7 days, initially with GI symptoms and then upper respiratory infection with rigors, chills. She has intermittently been a smoker for many years, tends to smoke greater amounts during times of stress. She has had a dry nonproductive cough since Wednesday along with diarrhea for the past several days. Her temperature reached 103 associated with rigors last night. In all total, she has a 91-[id number]-[id number]-year smoking history. She has been on weekly injections with Enbrel for her rheumatoid disease and has been on steroid therapy in the past. In the ER, saturations were 88%. She was placed on 6 L oxymask with adequate saturations. She states she feels better this afternoon than she did earlier today. CT scan of the chest showed no evidence of pulmonary thromboembolic disease but patchy ground-glass opacities resolved virtually in all 5 lobes and a small pericardial effusion was noted. She denies previous history of pneumonia, but has been followed by Dr. Pack in the past who was also a personal friend with his family having belong to their [employer]. Her white count was normal at 7000. Potassium 3.3. Her hemoglobin A1c was 8.1. Influenza A and B PCR was negative and she has a son who has been ill for the past week as well. When asked if she had a history of asthma, she stated that she has "stress-induced asthma." She further explains that when she is under periods of stress, she begins to smoke. She was a patient of Dr. Pack for her asthma in the past. Those records are not available to me currently. In 2011, when she was admitted, an echocardiogram showed [id number] concentric LVH, but no evidence for left ventricular outflow obstruction was noted. No wall motion abnormalities were seen. Systolic anterior motion of the anterior mitral leaflet was no longer present. She had been started on Toprol-XL at that time. Details of past medical history, medications, family and social history, I refer you to current workup. The patient was admitted in 2011 with syncope. At that time, she was working for [employer] for [employer] in [place] and apparently had a syncopal episode x4. PAST MEDICAL HISTORY: Pertinent for Still disease, tubal ligation, 3 C-sections, depression, diabetes mellitus, and rheumatoid arthritis on chronic immunosuppression. PHYSICAL EXAMINATION: GENERAL: Well-developed, well-nourished white female, appearing mildly dyspneic at rest with speech. VITAL SIGNS: Temperature 37.7, pulse 86 and regular, respiratory rate 24, blood pressure 133/73, O2 sat 99% on 5 L, oxymask. SKIN: Without lesion. HEENT: Atraumatic, normocephalic, PERRLA, EOMI. Conjunctivae pale. Sclerae nonicteric. Fundi poorly visualized. NECK: Veins not distended at 45 degrees. No evidence of adenopathy in the supra or infraclavicular areas. LUNGS: Distant P and A. No audible wheezes. CARDIAC: Regular rate and rhythm. I do not appreciate a gallop. ABDOMEN: Soft, scaphoid. EXTREMITIES: No pedal edema, clubbing or cyanosis. NEUROLOGIC: Intact. No lateralizing signs. OVERALL ASSESSMENT: A 51-year-old with rheumatoid arthritis on chronic immunosuppression, admitted with a 5-7 day prodrome and clearly with multifocal pneumonia, somewhat atypical in presentation, currently being covered with oral vancomycin for (chronic C. diff), IV doxycycline, IV Zosyn. Given her immunosuppression and chronic smoking history, we will need to watch carefully for any signs of impending respiratory distress. Drug-induced pneumonitis would seem less likely given the fever. We will make sure the patient has ordered mycoplasma and legionella antibodies IgA, IgM and IgG and will follow along with you. Thank you very much for this consultation.
[2017-07-14] VITALS (12 sets, daily range): BP systolic 131–141; BP diastolic 81–88; PULSE 77–96; TEMP 36.8–37.8; O2SAT 92–98
[2017-07-14] MEDS: PIPERACILL/TAZOBAC IV 3.375 GM in DEXTROSE 5% 100ML 100 ML IV SCH ×3 (00:06→16:17)
[2017-07-14] MEDS: VANCOMYCIN HCL 125 MG/2.5ML SOLN PO SCH ×4 (00:06→17:54)
[2017-07-14] MEDS: ZOLPIDEM TARTRATE 10 MG TAB PO PRN (00:06)
[2017-07-14] MEDS: RASPBERRY SYRUP 5 ML UDP PO SCH ×4 (00:07→17:54)
[2017-07-14] MEDS: IPRATROPIUM BROMIDE NEB SOLN 0.02% 2.5 ML VIAL INH SCH ×6 (03:27→22:52)
[2017-07-14] MEDS: LEVALBUTEROL 1.25MG/0.5ML NEB INH SCH ×6 (03:28→22:52)
[2017-07-14 06:11] LABS: BASO % 0.3 %; BASO ABS # 0.02 K/uL (0-0.2); EOS % 1.7 %; HEMATOCRIT 43.8 % (37-47); HEMOGLOBIN 14.5 g/dL (12.0-16.0); IG# 0.02 K/uL (0.00-0.02); LYMPH % 35.4 %; LYMPH ABS # 2.03 K/uL (1.2-3.4); MEAN CORPUSCULAR HEMOGLOBIN 29.1 pg (25-34); MEAN CORPUSCULAR HGB CONC 33.1 g/dl (32-36); MEAN PLATELET VOLUME 9.4 fL (7.4-10.4); MONO % 10.1 %; MONO ABS # 0.58 K/uL (0.11-0.59); NEUT % 52.2 %; NEUT ABS # 2.99 K/uL (1.4-6.5); PLATELET COUNT 163 K/uL (130-400); RED CELL DISTRIBUTION WIDTH CV 14.3 % (11.5-14.5); RED CELL DISTRIBUTION WIDTH SD 45.8 fL (36.4-46.3); WHITE BLOOD COUNT 5.74 K/uL (4.8-10.8)
[2017-07-14 06:52] LABS: CALCIUM 8.5 mg/dl (8.5-10.1); CREATININE 0.66 mg/dl (0.60-1.20); POTASSIUM 3.6 mmol/L (3.5-5.1)
--- NOTE | 2017-07-14 06:58 | DIAGNOSTIC IMAGING REPORT ---
CHEST ONE VIEW PORTABLE CLINICAL HISTORY: PNEUMONIA COMPARISON STUDY: 07/12/2017 FINDINGS: The heart remains enlarged. There are subtle bilateral patchy airspace opacities corresponding to the findings on the recent CT scan. There is no lobar consolidation. There are no significant pleural effusions.[ IMPRESSION: Subtle bilateral airspace opacities, similar to the prior CT findings. No evidence of lobar consolidation. Persistent cardiac enlargement Electronically signed by: Kev Sweet M.D. 07/14/2017 6:56 AM Dictated Date/Time: 07/14/2017 6:54 AM
[2017-07-14] MEDS: METOPROLOL SUCC 25MG EXT REL TAB PO SCH ×3 (07:37→19:55)
[2017-07-14] MEDS: NICOTINE 21 MG/24 HR TDSY TD SCH (07:37)
[2017-07-14] MEDS: GABAPENTIN 300 MG CAP PO SCH ×3 (07:37→19:54)
[2017-07-14] MEDS: INSULIN ASPART 100 UNITS/ML 3 ML PEN SC SCH ×3 (07:48→17:58)
--- NOTE | 2017-07-14 10:19 | PULMONARY PROGRESS NOTE ---
DATE: 07/14/2017 SUBJECTIVE: Somewhat improved, able to sleep last night and early a.m. Less chest tightness. Still not expectorating great deal of phlegm. PHYSICAL EXAMINATION: CURRENT VITAL SIGNS: Temperature 36.8, pulse 90 and regular, respiratory rate 20, blood pressure 133/81, O2 sat 93% on current 5 liter OxyMask. SKIN: Without lesions. HEENT: Atraumatic, normocephalic. PERRLA. LUNGS: Scattered wheeze, very distant breath sounds at the bases, but wheezes are audible at both bases. CARDIAC: Unchanged. ABDOMEN: Soft, flat, protuberant. EXTREMITIES: No pedal edema, clubbing, or cyanosis. NEUROLOGICAL: Intact. LABORATORY DATA: Chest x-ray today very subtle bilateral airspace opacities. The stool positive for C. diff toxin B gene. Blood cultures negative. Negative nasal swab from MRSA. OVERALL ASSESSMENT: A 51-year-old with chronic obstructive pulmonary disease/asthma with pneumonitis and probable degree of mucus plugging showing clinical improvement. We will add IV Solu-Medrol 40 q. 12 with careful attention glucose monitoring and we will discontinue the IV vancomycin at this point with a negative MRSA DNA swab.
[2017-07-14] MEDS: METHYLPREDNISOLONE IV 40 MG in SYRINGE 0 ML IV SCH (12:48)
[2017-07-14] MEDS: DOXYCYCLINE IV 100 MG in DEXTROSE 5% 100ML 100 ML IV SCH ×2 (12:56→21:55)
[2017-07-14] MEDS ORDERED: NURSING VERBAL MED ORDER ONE (16:15)
[2017-07-14] MEDS ORDERED: SODIUM CHLORIDE 0.65% NA SOLN 45 ML (OCEAN) PRN (16:30)
[2017-07-14] MEDS: CHOLECALCIFEROL 1000 INTER.UNIT TAB PO SCH (19:55)
[2017-07-14] MEDS ORDERED: INSULIN GLARGINE SOLOSTAR 100 UNITS/ML 3 ML PEN SC ONE (21:19)
[2017-07-14] MEDS ORDERED: INSULIN ASPART 100 UNITS/ML 3 ML PEN SC ONE (21:19)
--- NOTE | 2017-07-14 22:50 | Progress Note ---
Medicine Progress Note Date & Time of Visit: July 14, 2017 at 22:45. Subjective seen resting in bed, comfortable states she feels improved today less cough no chest pain no diarrhea no other symptoms Objective Last 8 Hrs Date Time Temp Pulse Resp B/P (MAP) Pulse Ox O2 Delivery O2 Flow Rate FiO2 07/14/17 19:45 37.3 96 16 136/84 (101) 94 Oxymask 5.0 07/14/17 19:13 88 18 94 Mask 5.0 07/14/17 16:23 36.8 88 20 141/87 (105) 94 Room Air 07/14/17 16:00 Oxymask 4.0 07/14/17 14:53 91 16 94 Mask 5.0 Physical Exam: General- oriented x 3, not in distress, speaks in sentences with no effort Head- atraumatic Eyes- anicteric Neck- no JVD Lungs- mild rhonchi at the bases Heart- regular rhythm; no murmur, normal rate Abdomen- normal bowel sounds, soft, nontender, non distended Extremities- no pretibial edema, no calf tenderness; peripheral pulses intact Neuro- alert, oriented x 3; no gross focal deficits Skin- warm & dry Laboratory Results: Last 24 Hours Test 07/14/17 05:42 07/14/17 07:32 07/14/17 11:39 07/14/17 16:22 White Blood Count 5.74 K/uL Red Blood Count 4.98 M/uL Hemoglobin 14.5 g/dL Hematocrit 43.8 % Mean Corpuscular Volume 88.0 fL Mean Corpuscular Hemoglobin 29.1 pg Mean Corpuscular Hemoglobin Concent 33.1 g/dl Platelet Count 163 K/uL Mean Platelet Volume 9.4 fL Neutrophils (%) (Auto) 52.2 % Lymphocytes (%) (Auto) 35.4 % Monocytes (%) (Auto) 10.1 % Eosinophils (%) (Auto) 1.7 % Basophils (%) (Auto) 0.3 % Neutrophils # (Auto) 2.99 K/uL Lymphocytes # (Auto) 2.03 K/uL Monocytes # (Auto) 0.58 K/uL Eosinophils # (Auto) 0.10 K/uL Basophils # (Auto) 0.02 K/uL RDW Standard Deviation 45.8 fL RDW Coefficient of Variation 14.3 % Immature Granulocyte % (Auto) 0.3 % Immature Granulocyte # (Auto) 0.02 K/uL Sodium Level 143 mmol/L Potassium Level 3.6 mmol/L Chloride Level 110 mmol/L Carbon Dioxide Level 29 mmol/L Anion Gap 4.0 mmol/L Blood Urea Nitrogen 4 mg/dl Creatinine 0.66 mg/dl Est Creatinine Clear Calc Drug Dose 103.0 ml/min Estimated GFR () 119.4 Estimated GFR (Non- 103.0 BUN/Creatinine Ratio 5.5 Random Glucose 150 mg/dl Calcium Level 8.5 mg/dl Magnesium Level 2.0 mg/dl Bedside Glucose 149 mg/dl 174 mg/dl 273 mg/dl Test 07/14/17 20:57 Bedside Glucose 333 mg/dl Assessment & Plan 51 year old female with history of Rheumatoid Arthritis on Enbrel, Autoimmune Thrombocytopenia, DM presenting with cough and shortness of breath. ACUTE HYPOXEMIC RESPIRATORY FAILURE/SECONDARY TO PNEUMONIA/COPD EXACERBATION CT chest with contrast shows no evidence of PE/ground glass opacity -multilobar pneumonia worsening of respiratory status secondary to immunocompromised status on Enbrel for RA/possible underlying COPD due to prolonged history of smoking Sputum culture: normal ada Nasal MRSA swab: negative improving down to 2 L facemask Doxycycline + Zosyn IV Day 2 Solumedrol started continue Nebs Pulmonary consulted, appreciate Dr. Chowdary's recommendations C DIFF DIARRHEA diarrhea resolving Vanco PO day 04/10 HYPOKALEMIA Possible secondary to GI loss/diarrhea replace, monitor also monitor Mg PROLONGED QTC resolved HISTORY OF TOBACCO ABUSE Smokes a pack of cigarettes a day Nicotine patch Smoking cessation counseling provided HISTORY OF RHEUMATOID ARTHRITIS On Enbrel q. weekly Patient has not taken it last 2 weeks secondary to illness Continue to HOLD due to multilobar pneumonia HISTORY OF AUTOIMMUNE THROMBOCYTOPENIA Platelet count within normal limits 150 K CODE STATUS: Full code DVT PROPHYLAXIS: Low risk Patient is active at baseline SCD and teds/patient is encouraged to ambulate Pharmacological anticoagulation avoided for history of autoimmune thrombocytopenia -- consider Lovenox if with prolonged hospitalization DISPOSITION: Expected to be discharged home when medically stable Medicine follow-up with Dr. Adrian lozano [facility] Current Inpatient Medications: Current Inpatient Medications Medications (Trade) Dose Ordered Sig/Nino Route Start Time Stop Time Status Last Admin Dose Admin Ioversol (Optiray 320) 100 ml UD PRN IV 07/12/17 18:45 07/16/17 18:44 Cholecalciferol (Vitamin D Tab) 2,000 inter.unit QPM PO 07/12/17 21:00 08/11/17 20:59 07/14/17 19:55 2,000 INTER.UNIT Folic Acid (Folvite Tab) 3 mg QPM PO 07/12/17 21:00 08/11/17 20:59 07/14/17 19:54 3 MG Gabapentin (Neurontin Cap) 600 mg TID PO 07/12/17 21:00 08/11/17 20:59 07/14/17 19:54 600 MG Metoprolol Succinate (Toprol Xl Tab) 25 mg TID PO 07/12/17 21:00 08/11/17 20:59 07/14/17 19:55 25 MG Zolpidem Tartrate (Ambien Tab) 10 mg HSZ PRN PO 07/12/17 20:45 08/11/17 20:44 07/14/17 00:06 10 MG Acetaminophen (Tylenol Tab) 650 mg Q4H PRN PO 07/12/17 20:45 08/11/17 20:44 07/14/17 00:38 650 MG Al Hydrox/Mg Hydrox/Simethicone (Maalox Max Susp) 15 ml Q4H PRN PO 07/12/17 20:45 08/11/17 20:44 Magnesium Hydroxide (Milk Of Magnesia Susp) 30 ml Q12H PRN PO 07/12/17 20:45 08/11/17 20:44 Nitroglycerin (Nitrostat Tab) 0.4 mg UD PRN SL 07/12/17 20:45 08/11/17 20:44 Polyethylene (Miralax Powder Packet) 17 gm DAILY PRN PO 07/12/17 20:45 08/11/17 20:44 Glucose (Glucose 40% Gel) 15-30 GRAMS 15 GRAMS... UD PRN PO 07/12/17 20:45 08/11/17 20:44 Glucose (Glucose Chew Tab) 4-8 Tablets 4 Tabl... UD PRN PO 07/12/17 20:45 08/11/17 20:44 Dextrose (Dextrose 50% 50ML Syringe) 25-50ML 25ML FOR ... UD PRN IV 07/12/17 20:45 08/11/17 20:44 Glucagon (Glucagon Inj) 1 mg UD PRN SQ 07/12/17 20:45 08/11/17 20:44 Carbohydrates (Carbohydrates For Hypoglycemia) 15-30 GRAMS 15 grams if BSG 54-69... UD PRN PO 07/12/17 20:45 08/11/17 20:44 Ipratropium [place] (Atrovent 0.02% 0.5MG/2.5ML Neb) 0.5 mg Q4R INH 07/13/17 00:00 08/12/17 00:00 07/14/17 19:13 0.5 MG Levalbuterol (Xopenex 1.25MG/ 0.5ML Neb) 1.25 mg Q4R INH 07/13/17 00:00 08/12/17 00:00 07/14/17 19:13 1.25 MG Nicotine (Nicoderm Cq 21MG Patch) 1 patch QAM TD 07/12/17 21:45 08/11/17 21:44 07/14/17 07:37 1 PATCH Miscellaneous (Remove Nicoderm Patch) 1 ea HS N/A 07/13/17 21:00 08/12/17 20:59 07/14/17 19:55 1 EA Piperacillin Sod/ Tazobactam Sod 3.375 gm/Dextrose 115 ml @ 28 mls/hr Q8H IV 07/13/17 00:00 07/20/17 00:00 07/14/17 16:17 28 MLS/HR Miscellaneous Information (Consult) 1 ea UD PRN N/A 07/12/17 21:45 08/11/17 21:44 Promethazine HCl 12.5 mg/Sodium Chloride 50.5 ml @ 204 mls/hr Q6H PRN IV 07/12/17 21:45 08/11/17 21:44 Doxycycline Hyclate 100 mg/ Dextrose 110 ml @ 50 mls/hr Q12H IV 07/13/17 09:00 07/20/17 08:59 07/14/17 21:55 50 MLS/HR Raspberry (Raspberry Syrup 5ml Cup) 5 ml Q6 PO 07/13/17 12:00 07/23/17 11:59 07/14/17 17:54 5 ML Vancomycin HCl (Vancomycin Oral Soln) 125 mg Q6 PO 07/13/17 12:00 07/23/17 11:59 07/14/17 17:54 125 MG Methylprednisolone Sodium Succinate 40 mg/Syringe 0.64 ml @ 1.5 mls/min [id number] IV 07/14/17 14:00 08/13/17 13:59 07/14/17 12:48 1.5 MLS/MIN Sodium Chloride ([place] Nasal [place]) 1 sprays PRN PRN NA 07/14/17 16:30 08/13/17 16:29 Insulin Aspart (novoLOG ASPART) SLIDING SCALE If C... ACHS SC 07/15/17 07:00 08/11/17 20:59 Insulin Glargine (Lantus Solostar Pen) 20 units HS SC 07/15/17 21:00 08/14/17 20:59
[2017-07-15] VITALS (12 sets, daily range): BP systolic 133–160; BP diastolic 71–88; PULSE 73–118; TEMP 36.6–37.2; O2SAT 90–97
[2017-07-15] MEDS: PIPERACILL/TAZOBAC IV 3.375 GM in DEXTROSE 5% 100ML 100 ML IV SCH ×3 (00:12→16:58)
[2017-07-15] MEDS: RASPBERRY SYRUP 5 ML UDP PO SCH ×4 (00:12→17:54)
[2017-07-15] MEDS: VANCOMYCIN HCL 125 MG/2.5ML SOLN PO SCH ×4 (00:12→17:54)
[2017-07-15] MEDS: ZOLPIDEM TARTRATE 10 MG TAB PO PRN (00:19)
[2017-07-15] MEDS: LEVALBUTEROL 1.25MG/0.5ML NEB INH SCH ×6 (03:37→23:09)
[2017-07-15] MEDS: IPRATROPIUM BROMIDE NEB SOLN 0.02% 2.5 ML VIAL INH SCH ×6 (03:37→23:09)
[2017-07-15] MEDS: METHYLPREDNISOLONE IV 40 MG in SYRINGE 0 ML IV SCH ×2 (05:44→14:51)
[2017-07-15 06:20] LABS: BASO % 0.3 %; BASO ABS # 0.02 K/uL (0-0.2); EOS % 0.3 %; EOS ABS # 0.02 K/uL (0-0.5); HEMATOCRIT 43.4 % (37-47); HEMOGLOBIN 14.9 g/dL (12.0-16.0); IG# 0.02 K/uL (0.00-0.02); LYMPH ABS # 2.22 K/uL (1.2-3.4); MEAN CELL VOLUME 86.6 fL (80-100); MEAN CORPUSCULAR HEMOGLOBIN 29.7 pg (25-34); MEAN CORPUSCULAR HGB CONC 34.3 g/dl (32-36); MEAN PLATELET VOLUME 9.5 fL (7.4-10.4); MONO % 9.5 %; MONO ABS # 0.64 K/uL (0.11-0.59); NEUT % 56.6 %; PLATELET COUNT 203 K/uL (130-400); RED CELL DISTRIBUTION WIDTH CV 13.8 % (11.5-14.5); RED CELL DISTRIBUTION WIDTH SD 43.8 fL (36.4-46.3); WHITE BLOOD COUNT 6.72 K/uL (4.8-10.8)
[2017-07-15 06:49] LABS: CALCIUM 8.7 mg/dl (8.5-10.1); CREATININE 0.65 mg/dl (0.60-1.20); POTASSIUM 3.7 mmol/L (3.5-5.1)
[2017-07-15] MEDS: GABAPENTIN 300 MG CAP PO SCH ×3 (08:06→21:12)
[2017-07-15] MEDS: NICOTINE 21 MG/24 HR TDSY TD SCH (08:07)
[2017-07-15] MEDS: METOPROLOL SUCC 25MG EXT REL TAB PO SCH ×3 (08:07→21:14)
[2017-07-15] MEDS: INSULIN ASPART 100 UNITS/ML 3 ML PEN SC SCH ×4 (08:19→21:23)
[2017-07-15] MEDS: DOXYCYCLINE IV 100 MG in DEXTROSE 5% 100ML 100 ML IV SCH ×2 (09:58→21:41)
[2017-07-15] MEDS ORDERED: PHARMACY GLYCEMIC MGMT CONSULT PRN (11:28)
[2017-07-15] MEDS ORDERED: INSULIN GLARGINE SOLOSTAR 100 UNITS/ML 3 ML PEN SC ONE (12:15)
[2017-07-15] MEDS ORDERED: INSULIN HUMAN REGULAR IV BOLUS PHA PREPARED IV ONE (12:15)
--- NOTE | 2017-07-15 12:18 | Progress Note ---
Medicine Progress Note Date & Time of Visit: July 15, 2017 at 12:18. Subjective seen sitting up in bed comfortable states she continues to feel improved less dyspnea, cough no chest pain no diarrhea, abdominal pain no other symptoms Objective Last 8 Hrs Date Time Temp Pulse Resp B/P (MAP) Pulse Ox O2 Delivery O2 Flow Rate FiO2 07/15/17 11:17 37.2 86 20 160/88 (112) 97 Oxymask 4.5 07/15/17 11:10 74 16 93 Mask 5.0 07/15/17 08:00 Oxymask 5.0 07/15/17 07:54 37.2 78 20 143/78 (99) 92 Oxymask 5.0 07/15/17 07:14 74 16 95 Mask 5.0 Physical Exam: General- oriented x 3, not in distress, speaks in sentences with no effort Head- atraumatic Eyes- anicteric Neck- no JVD Lungs- mild rhonchi bilaterally, at the bases Heart- regular rhythm; no murmur, normal rate Abdomen- normal bowel sounds, soft, nontender, non distended Extremities- no pretibial edema, no calf tenderness Neuro- alert, oriented x 3; no gross focal deficits Skin- warm & dry Laboratory Results: Last 24 Hours Test 07/14/17 16:22 07/14/17 20:57 07/15/17 06:05 07/15/17 07:31 Bedside Glucose 273 mg/dl 333 mg/dl 172 mg/dl White Blood Count 6.72 K/uL Red Blood Count 5.01 M/uL Hemoglobin 14.9 g/dL Hematocrit 43.4 % Mean Corpuscular Volume 86.6 fL Mean Corpuscular Hemoglobin 29.7 pg Mean Corpuscular Hemoglobin Concent 34.3 g/dl Platelet Count 203 K/uL Mean Platelet Volume 9.5 fL Neutrophils (%) (Auto) 56.6 % Lymphocytes (%) (Auto) 33.0 % Monocytes (%) (Auto) 9.5 % Eosinophils (%) (Auto) 0.3 % Basophils (%) (Auto) 0.3 % Neutrophils # (Auto) 3.80 K/uL Lymphocytes # (Auto) 2.22 K/uL Monocytes # (Auto) 0.64 K/uL Eosinophils # (Auto) 0.02 K/uL Basophils # (Auto) 0.02 K/uL RDW Standard Deviation 43.8 fL RDW Coefficient of Variation 13.8 % Immature Granulocyte % (Auto) 0.3 % Immature Granulocyte # (Auto) 0.02 K/uL Sodium Level 143 mmol/L Potassium Level 3.7 mmol/L Chloride Level 109 mmol/L Carbon Dioxide Level 28 mmol/L Anion Gap 6.0 mmol/L Blood Urea Nitrogen 5 mg/dl Creatinine 0.65 mg/dl Est Creatinine Clear Calc Drug Dose 104.0 ml/min Estimated GFR () 120.0 Estimated GFR (Non- 103.5 BUN/Creatinine Ratio 8.3 Random Glucose 178 mg/dl Calcium Level 8.7 mg/dl Magnesium Level 2.0 mg/dl Test 07/15/17 11:16 Bedside Glucose 355 mg/dl Assessment & Plan 51 year old female with history of Rheumatoid Arthritis on Enbrel, Autoimmune Thrombocytopenia, DM presenting with cough and shortness of breath. ACUTE HYPOXEMIC RESPIRATORY FAILURE/SECONDARY TO PNEUMONIA/COPD EXACERBATION CT chest with contrast shows no evidence of PE/ground glass opacity -multilobar pneumonia worsening of respiratory status secondary to immunocompromised status on Enbrel for RA/possible underlying COPD due to prolonged history of smoking Sputum culture: normal ada Nasal MRSA swab: negative clinically improving still at 4-5 L facemask Doxycycline + Zosyn IV Day 3 Solumedrol continue [facility] consulted, appreciate Dr. Chowdary's recommendations C DIFF DIARRHEA diarrhea resolving Vanco PO day / HYPOKALEMIA Possible secondary to GI loss/diarrhea replace, monitor also monitor Mg PROLONGED QTC resolved HISTORY OF TOBACCO ABUSE Smokes a pack of cigarettes a day Nicotine patch Smoking cessation counseling provided HISTORY OF RHEUMATOID ARTHRITIS On Enbrel q. weekly Patient has not taken it last 2 weeks secondary to illness Continue to HOLD due to multilobar pneumonia HISTORY OF AUTOIMMUNE THROMBOCYTOPENIA Platelet count within normal limits 150 K CODE STATUS: Full code DVT PROPHYLAXIS: Lovenox discussed with Dr. Alegre DISPOSITION: Expected to be discharged home when medically stable Medicine follow-up with Dr. Adrian lozano [facility] patient requesting to have a shower, i did not recommend at this time as she still requires 4-5L on facemask and may have dyspnea/syncope with exerting herself she verbalized understanding and agreement Current Inpatient Medications: Current Inpatient Medications Medications (Trade) Dose Ordered Sig/Nino Route Start Time Stop Time Status Last Admin Dose Admin Ioversol (Optiray 320) 100 ml UD PRN IV 07/12/17 18:45 07/16/17 18:44 Cholecalciferol (Vitamin D Tab) 2,000 inter.unit QPM PO 07/12/17 21:00 08/11/17 20:59 07/14/17 19:55 2,000 INTER.UNIT Folic Acid (Folvite Tab) 3 mg QPM PO 07/12/17 21:00 08/11/17 20:59 07/14/17 19:54 3 MG Gabapentin (Neurontin Cap) 600 mg TID PO 07/12/17 21:00 08/11/17 20:59 07/15/17 08:06 600 MG Metoprolol Succinate (Toprol Xl Tab) 25 mg TID PO 07/12/17 21:00 08/11/17 20:59 07/15/17 08:07 25 MG Zolpidem Tartrate (Ambien Tab) 10 mg HSZ PRN PO 07/12/17 20:45 08/11/17 20:44 07/15/17 00:19 10 MG Acetaminophen (Tylenol Tab) 650 mg Q4H PRN PO 07/12/17 20:45 08/11/17 20:44 07/14/17 00:38 650 MG Al Hydrox/Mg Hydrox/Simethicone (Maalox Max Susp) 15 ml Q4H PRN PO 07/12/17 20:45 08/11/17 20:44 Magnesium Hydroxide (Milk Of Magnesia Susp) 30 ml Q12H PRN PO 07/12/17 20:45 08/11/17 20:44 Nitroglycerin (Nitrostat Tab) 0.4 mg UD PRN SL 07/12/17 20:45 08/11/17 20:44 Polyethylene (Miralax Powder Packet) 17 gm DAILY PRN PO 07/12/17 20:45 08/11/17 20:44 Glucose (Glucose 40% Gel) 15-30 GRAMS 15 GRAMS... UD PRN PO 07/12/17 20:45 08/11/17 20:44 Glucose (Glucose Chew Tab) 4-8 Tablets 4 Tabl... UD PRN PO 07/12/17 20:45 08/11/17 20:44 Dextrose (Dextrose 50% 50ML Syringe) 25-50ML 25ML FOR ... UD PRN IV 07/12/17 20:45 08/11/17 20:44 Glucagon (Glucagon Inj) 1 mg UD PRN SQ 07/12/17 20:45 08/11/17 20:44 Carbohydrates (Carbohydrates For Hypoglycemia) 15-30 GRAMS 15 grams if BSG 54-69... UD PRN PO 07/12/17 20:45 08/11/17 20:44 Ipratropium Mcdade (Atrovent 0.02% 0.5MG/2.5ML Neb) 0.5 mg Q4R INH 07/13/17 00:00 08/12/17 00:00 07/15/17 11:09 0.5 MG Levalbuterol (Xopenex 1.25MG/ 0.5ML Neb) 1.25 mg Q4R INH 07/13/17 00:00 08/12/17 00:00 07/15/17 11:09 1.25 MG Nicotine (Nicoderm Cq 21MG Patch) 1 patch QAM TD 07/12/17 21:45 08/11/17 21:44 07/15/17 08:07 1 PATCH Miscellaneous (Remove Nicoderm Patch) 1 ea HS N/A 07/13/17 21:00 08/12/17 20:59 07/14/17 19:55 1 EA Piperacillin Sod/ Tazobactam Sod 3.375 gm/Dextrose 115 ml @ 28 mls/hr Q8H IV 07/13/17 00:00 07/20/17 00:00 07/15/17 08:06 28 MLS/HR Miscellaneous Information (Consult) 1 ea UD PRN N/A 07/12/17 21:45 08/11/17 21:44 Promethazine HCl 12.5 mg/Sodium Chloride 50.5 ml @ 204 mls/hr Q6H PRN IV 07/12/17 21:45 08/11/17 21:44 Doxycycline Hyclate 100 mg/ Dextrose 110 ml @ 50 mls/hr Q12H IV 07/13/17 09:00 07/20/17 08:59 07/15/17 09:58 50 MLS/HR Raspberry (Raspberry Syrup 5ml Cup) 5 ml Q6 PO 07/13/17 12:00 07/23/17 11:59 07/15/17 11:54 5 ML Vancomycin HCl (Vancomycin Oral Soln) 125 mg Q6 PO 07/13/17 12:00 07/23/17 11:59 07/15/17 11:54 125 MG Methylprednisolone Sodium Succinate 40 mg/Syringe 0.64 ml @ 1.5 mls/min [id number] IV 07/14/17 14:00 08/13/17 13:59 07/15/17 05:44 1.5 MLS/MIN Sodium Chloride ([place] Nasal [place]) 1 sprays PRN PRN NA 07/14/17 16:30 08/13/17 16:29 Insulin Aspart (novoLOG ASPART) SLIDING SCALE If C... ACHS SC 07/15/17 07:00 08/11/17 20:59 07/15/17 11:58 10 UNITS Miscellaneous Information (Consult Glycemic Management Pharmacy) 1 ea UD PRN N/A 07/15/17 11:28 08/14/17 11:27 Insulin Glargine (Lantus Solostar Pen) See Protocol Text BID SC 07/15/17 21:00 08/14/17 20:59
--- NOTE | 2017-07-15 12:33 | Pharmacy Progress Note ---
Glycemic Control Intl Consult Date of Service July 15, 2017. Scope Glycemic Pharmacist consulted by Dr Young on 07/15/17 for glycemic control and to write orders per [facility] inpatient glycemic control protocol Objective Weight (Kilograms): 77.000 Accuchecks BSG (last 24hrs): Test 07/14/17 16:22 07/14/17 20:57 07/15/17 06:05 07/15/17 07:31 Bedside Glucose 273 mg/dl (70-90) 333 mg/dl (70-90) 172 mg/dl (70-90) Random Glucose 178 mg/dl (70-99) Test 07/15/17 11:16 Bedside Glucose 355 mg/dl (70-90) Laboratory Data (last 24hrs) Test 07/15/17 06:05 Anion Gap 6.0 mmol/L BUN/Creatinine Ratio 8.3 Blood Urea Nitrogen 5 mg/dl Creatinine 0.65 mg/dl Potassium Level 3.7 mmol/L Sodium Level 143 mmol/L White Blood Count 6.72 K/uL Red Blood Count 5.01 M/uL Hemoglobin 14.9 g/dL Hematocrit 43.4 % Mean Corpuscular Volume 86.6 fL Mean Corpuscular Hemoglobin 29.7 pg Mean Corpuscular Hemoglobin Concent 34.3 g/dl Platelet Count 203 K/uL Mean Platelet Volume 9.5 fL Neutrophils (%) (Auto) 56.6 % Lymphocytes (%) (Auto) 33.0 % Monocytes (%) (Auto) 9.5 % Eosinophils (%) (Auto) 0.3 % Basophils (%) (Auto) 0.3 % Neutrophils # (Auto) 3.80 K/uL Lymphocytes # (Auto) 2.22 K/uL Monocytes # (Auto) 0.64 K/uL Eosinophils # (Auto) 0.02 K/uL Basophils # (Auto) 0.02 K/uL HbA1c Test 07/13/17 04:00 Hemoglobin A1c 8.1 % (4.5-5.6) H Recent Pertinent Medications Outpatient Anti-diabetic Regimen: * Janumet XR (unknown dose) daily * A1c = 8.1 % 07/13/17 The patient is currently receiving: * Basal insulin: Lantus 20 units SQ Q HS * Correctional Insulin: Novolog Correction per scale ACHS Goal Range: Low 100 mg/dL - High 140 mg/dL Correction Factor: 25 mg/dL/unit * Prandial insulin: Per carb ratio of 1 unit per 15 grams CHO consumed * Oral Agents: None currently Risk Factors for Insulin Resistance: * Steroids: Solu-Medrol 40mg IV BID * Infection: Pneumonia/COPD exac * Diet: ordered T2DM diet Assessment & Plan ASSESSMENT: 07/15/17 * Type 2 diabetic admitted for hypoxemic resp failure secondary to pneumonia/ COPD exacerbation * Out-pt oral hypoglycemics on hold. A1c 8.1, indicating there is room for improved control. * Glycemic control deteriorated with the addition of IV steroids yesterday afternoon. * Fasting BSG 172 this AM w/ 20 units Lantus on board. She likely requires even more basal insulin to achieve fasting targets while on current steroid dose. * Pre-lunch BSG 355 - indicating need for more prandial insulin. * Will adjust both basal and bolus insulin doses based upon pt wt and moderate- severe stress level dosing PLAN FOR INPATIENT GLYCEMIC CONTROL: * Give 5 units Regular insulin IV x 1 now * Increasing Lantus: give 20 units SQ x 1 now. Then dose BID per the following scale: if BSG less than 140 give 13 units, if BSG 140 or greater give 19 units * Changing correction factor to 20 mg/dl/unit * Changing carb ratio to 1 unit per 7 grams CHO consumed * Changing goal range to Low 110 mg/dL - High 140 mg/dL * Add BSG check at 0200 tonight and cover with the above Novolog parameters * Please note that the plan above was derived based on current level of insulin resistance and hospital stress. These recommendations are appropriate for inpatient admission only. Plan of care upon discharge will need to be reassessed to avoid potential outpatient hypo/hyperglycemia. Thank you.
[2017-07-15] MEDS ORDERED: ENOXAPARIN 40 MG/0.4 ML SYR SQ ONE (15:00)
--- NOTE | 2017-07-15 15:02 | PULMONARY PROGRESS NOTE ---
DATE: 07/15/2017 SUBJECTIVE: Sad and somewhat depressed. O2 requirements currently is 4.5 liters via OxyMask to maintain adequate saturation, required 5 liters yesterday. She is having trouble expectorating and also wishes to be able to leave her room. We had a lengthy discussion concerning her ongoing smoking habit. She understands she needs to either cut down or quit altogether. PHYSICAL EXAMINATION: VITAL SIGNS: Currently temperature 37.2, pulse 86 and regular, respiratory rate 20, blood pressure 160/88, O2 sat 97% on 4.5 liters. SKIN: Without lesion. HEENT: Atraumatic, normocephalic. PERRLA. LUNGS: Wheezing right base. CARDIAC: Regular rhythm. No murmurs or gallops. ABDOMEN: Soft, protuberant. EXTREMITIES: No significant pedal edema, clubbing or cyanosis. NEUROLOGIC: Intact. No lateralizing signs. LABORATORY DATA: H&H 14 and 43 with a normal white count. Glucose levels markedly elevated. OVERALL ASSESSMENT: [id number] white female with a smoking history, history of asthma with micronodular opacities bilaterally on admission described as patchy ground-glass involving all lobes. I suspect the patient has a degree of mucoid impaction from her chronic smoking and infection. I have not mentioned to her possibility of undergoing bronchoscopy with lavage as when I did 2 days ago she got upset with me. If her oxygen requirement does not improve then she may require additional intervention. We will follow along with you.
[2017-07-15] MEDS ORDERED: INSULIN GLARGINE SOLOSTAR 100 UNITS/ML 3 ML PEN SC SCH (21:00)
[2017-07-15] MEDS: CHOLECALCIFEROL 1000 INTER.UNIT TAB PO SCH (21:12)
[2017-07-15] MEDS: INSULIN GLARGINE SOLOSTAR 100 UNITS/ML 3 ML PEN SC SCH (21:24)
[2017-07-16] VITALS (13 sets, daily range): BP systolic 124–149; BP diastolic 78–90; PULSE 66–94; TEMP 36.7–37.4; O2SAT 90–98; Ht 162.6 cm; Wt 76.0 kg
[2017-07-16] MEDS: ZOLPIDEM TARTRATE 10 MG TAB PO PRN (00:02)
[2017-07-16] MEDS: PIPERACILL/TAZOBAC IV 3.375 GM in DEXTROSE 5% 100ML 100 ML IV SCH ×3 (00:02→16:23)
[2017-07-16] MEDS: VANCOMYCIN HCL 125 MG/2.5ML SOLN PO SCH ×4 (00:06→17:45)
[2017-07-16] MEDS: RASPBERRY SYRUP 5 ML UDP PO SCH ×4 (00:06→17:45)
[2017-07-16] MEDS ORDERED: INSULIN ASPART 100 UNITS/ML 3 ML PEN SC ONE (02:00)
[2017-07-16] MEDS: IPRATROPIUM BROMIDE NEB SOLN 0.02% 2.5 ML VIAL INH SCH ×6 (03:41→23:21)
[2017-07-16] MEDS: LEVALBUTEROL 1.25MG/0.5ML NEB INH SCH ×6 (03:41→23:21)
[2017-07-16] MEDS: METHYLPREDNISOLONE IV 40 MG in SYRINGE 0 ML IV SCH ×2 (06:15→14:16)
[2017-07-16 06:45] LABS: BASO % 0.2 %; BASO ABS # 0.02 K/uL (0-0.2); EOS % 0.2 %; EOS ABS # 0.02 K/uL (0-0.5); HEMATOCRIT 42.7 % (37-47); HEMOGLOBIN 14.3 g/dL (12.0-16.0); IG# 0.03 K/uL (0.00-0.02); LYMPH % 33.8 %; LYMPH ABS # 3.34 K/uL (1.2-3.4); MEAN CELL VOLUME 86.8 fL (80-100); MEAN CORPUSCULAR HEMOGLOBIN 29.1 pg (25-34); MEAN CORPUSCULAR HGB CONC 33.5 g/dl (32-36); MEAN PLATELET VOLUME 9.5 fL (7.4-10.4); MONO % 7.6 %; MONO ABS # 0.75 K/uL (0.11-0.59); NEUT % 57.9 %; NEUT ABS # 5.72 K/uL (1.4-6.5); PLATELET COUNT 225 K/uL (130-400); RED CELL DISTRIBUTION WIDTH CV 13.7 % (11.5-14.5); RED CELL DISTRIBUTION WIDTH SD 43.6 fL (36.4-46.3); WHITE BLOOD COUNT 9.88 K/uL (4.8-10.8)
[2017-07-16] MEDS: NICOTINE 21 MG/24 HR TDSY TD SCH (07:54)
[2017-07-16] MEDS: ENOXAPARIN 40 MG/0.4 ML SYR SQ SCH (07:55)
[2017-07-16] MEDS: METOPROLOL SUCC 25MG EXT REL TAB PO SCH ×3 (07:56→20:46)
[2017-07-16] MEDS: GABAPENTIN 300 MG CAP PO SCH ×3 (07:56→20:46)
[2017-07-16 08:04] LABS: CREATININE 0.74 mg/dl (0.60-1.20); POTASSIUM 3.4 mmol/L (3.5-5.1)
[2017-07-16] MEDS: INSULIN GLARGINE SOLOSTAR 100 UNITS/ML 3 ML PEN SC SCH ×2 (08:04→20:40)
[2017-07-16] MEDS: INSULIN ASPART 100 UNITS/ML 3 ML PEN SC SCH ×3 (08:04→17:45)
[2017-07-16] MEDS: DOXYCYCLINE IV 100 MG in DEXTROSE 5% 100ML 100 ML IV SCH (08:05)
--- NOTE | 2017-07-16 10:47 | Pharmacy Progress Note ---
Pharmacy Glycemic Short Note 2 Date of Service July 16, 2017. OUTPATIENT ANTIDIABETIC REGIMEN: * Janumet XR (unknown dose) daily * A1c = 8.1 % 07/13/17 The patient is currently receiving: * Basal insulin: Lantus 20 units SQ in the AM + 19 units in the PM yesterday * Correctional Insulin: Novolog Correction per scale ACHS and at 0200 Goal Range: Low 110 mg/dL - High 140 mg/dL Correction Factor: 20 mg/dL/unit * Prandial insulin: Per carb ratio of 1 unit per 7 grams CHO consumed * Oral Agents: None currently Item Value Date Time Bedside Glucose 129 mg/dl H 07/16/17 0713 Random Glucose 119 mg/dl H 07/16/17 0631 Bedside Glucose 279 mg/dl H 07/16/17 0232 Bedside Glucose 249 mg/dl H 07/15/17 2039 Bedside Glucose 220 mg/dl H 07/15/17 1621 Bedside Glucose 355 mg/dl *H 07/15/17 1116 ASSESSMENT: 07/16/17 * Solu-Medrol continues today in the same dosage * BSGs have improved following new insulin orders yesterday * She has received 82 units of insulin SQ + 5 units IV insulin over the last 24 hours. * Fasting BSG 129 this AM with 39 units of basal insulin on board, however the patient also received 7 units of Novolog correction overnight. * Will titrate the Lantus scale dose upwards slightly based upon an anticipated total daily insulin requirement of ~75-85 units per day * Slightly higher doses of Novolog may also be required given the post-prandial elevations seen in the evening yesterday and current estimates of total daily dose. 07/15/17 * Type 2 diabetic admitted for hypoxemic resp failure secondary to pneumonia/ COPD exacerbation * Out-pt oral hypoglycemics on hold. A1c 8.1, indicating there is room for improved control. * Glycemic control deteriorated with the addition of IV steroids yesterday afternoon. * Fasting BSG 172 this AM w/ 20 units Lantus on board. She likely requires even more basal insulin to achieve fasting targets while on current steroid dose. * Pre-lunch BSG 355 - indicating need for more prandial insulin. * Will adjust both basal and bolus insulin doses based upon pt wt and moderate- severe stress level dosing PLAN FOR INPATIENT GLYCEMIC CONTROL: * Hold outpatient oral diabetes medications * Basal insulin * Lantus BID per the following scale: 15 units if BSG less than 140, 22 units if BSG 140 or greater (dose increase) * Bolus insulin * NovoLog per scale ACHS and at 0200 * Goal Range: Low 110 mg/dL - High 140 mg/dL (no change) * Correction Factor: 18 mg/dL/unit (dose increase) * Nutritional / Prandial insulin per carb ratio of 1 unit per 6 grams CHO consumed (dose increase) PLAN FOR DISCHARGE: * Could consider resuming home regimen of Janumet XR however an additional agent may be required to achieve A1c goal. Currently A1c of 8.1 and there is room for improvement with dietary modification. Recommend f/u within a few weeks of discharge for assessment of current regimen, need for additional drug therapy, dietary compliance and medication compliance.
--- NOTE | 2017-07-16 13:56 | PULMONARY PROGRESS NOTE ---
DATE: 07/16/2017 SUBJECTIVE: Seems improved. Saturations have markedly improved and appears to be at 90% now on room air. Minimal cough. PHYSICAL EXAMINATION: CURRENT VITAL SIGNS: Temperature 37, pulse 84 and regular, respiratory rate 18, blood pressure 124/78, O2 sat 98% on room air. SKIN: Without lesion. HEENT: Atraumatic, normocephalic. PERRLA. LUNGS: Distant P and A. No audible wheezes. CARDIAC: Exam unchanged. ABDOMEN: Soft. EXTREMITIES: No pedal edema. LABORATORY DATA: White count 9800, H and H stable at 14 and 42, potassium 3.4. ASSESSMENT AND PLAN: A 51-year-old white female with chronic obstructive pulmonary disease/asthma and smoking history, admitted with atypical pneumonia, seems improved at this point in time. PLAN: Would convert to oral prednisone and oral antibiotics and would make sure prior to discharge that a 6-minute ambulation study is done to make sure the patient does not require any additional O2 supplementation. We will be happy to see as an outpatient if patient desires. JARRETT
[2017-07-16] MEDS: DOXYCYCLINE HYCLATE 100 MG CAP PO SCH (20:46)
[2017-07-16] MEDS: CHOLECALCIFEROL 1000 INTER.UNIT TAB PO SCH (20:46)
[2017-07-16] MEDS ORDERED: INSULIN HUMAN REGULAR PER UNIT 5 UNITS in SYRINGE 4.95 ML IV ONE (21:00)
[2017-07-16] MEDS ORDERED: INSULIN ASPART 100 UNITS/ML 3 ML PEN SC SCH (21:30)
[2017-07-16] MEDS ORDERED: INSULIN REGULAR 250 UNITS in SODIUM CHLORIDE 0.9% 250ML 250 ML IV SCH (21:30)
[2017-07-17] VITALS (8 sets, daily range): BP systolic 134–141; BP diastolic 80–91; PULSE 68–94; TEMP 36.6–37.1; O2SAT 91–98
[2017-07-17] MEDS: ZOLPIDEM TARTRATE 10 MG TAB PO PRN (00:01)
[2017-07-17] MEDS: PIPERACILL/TAZOBAC IV 3.375 GM in DEXTROSE 5% 100ML 100 ML IV SCH ×2 (00:02→07:32)
[2017-07-17] MEDS: RASPBERRY SYRUP 5 ML UDP PO SCH ×3 (00:03→11:52)
[2017-07-17] MEDS: VANCOMYCIN HCL 125 MG/2.5ML SOLN PO SCH ×3 (00:04→11:52)
[2017-07-17] MEDS ORDERED: INSULIN ASPART 100 UNITS/ML 3 ML PEN SC ONE (02:00)
[2017-07-17] MEDS: LEVALBUTEROL 1.25MG/0.5ML NEB INH SCH ×3 (03:08→11:16)
[2017-07-17] MEDS: IPRATROPIUM BROMIDE NEB SOLN 0.02% 2.5 ML VIAL INH SCH ×3 (03:08→11:16)
--- NOTE | 2017-07-17 03:59 | Progress Note ---
Medicine Progress Note Date & Time of Visit: July 17, 2017 at 03:59. Subjective Delayed entry date of service July 16, 2017 Seen resting in bed comfortable in good spirits States she feels that she continues to improve No dyspnea, ambulating in the hallways No cough No diarrhea No other symptoms Objective Last 8 Hrs Date Time Temp Pulse Resp B/P (MAP) Pulse Ox O2 Delivery O2 Flow Rate FiO2 07/17/17 03:10 71 18 93 Room Air 07/17/17 00:00 37.0 94 140/91 (107) 94 Room Air 07/17/17 00:00 94 Room Air 07/16/17 23:21 84 16 93 Room Air 07/16/17 20:00 92 Room Air Physical Exam: General- oriented x 3, not in distress, speaks in sentences with no effort Eyes- anicteric Neck- no JVD Lungs-very mild rhonchi bilaterally at the bases, no wheezing Heart- regular rhythm; no murmur, normal rate Abdomen- normal bowel sounds, soft, nontender, non distended Extremities- no pretibial edema, no calf tenderness Neuro- alert, oriented x 3; no gross focal deficits Skin- warm & dry Laboratory Results: Last 24 Hours Test 07/16/17 06:31 07/16/17 07:13 07/16/17 11:36 07/16/17 16:07 White Blood Count 9.88 K/uL Red Blood Count 4.92 M/uL Hemoglobin 14.3 g/dL Hematocrit 42.7 % Mean Corpuscular Volume 86.8 fL Mean Corpuscular Hemoglobin 29.1 pg Mean Corpuscular Hemoglobin Concent 33.5 g/dl Platelet Count 225 K/uL Mean Platelet Volume 9.5 fL Neutrophils (%) (Auto) 57.9 % Lymphocytes (%) (Auto) 33.8 % Monocytes (%) (Auto) 7.6 % Eosinophils (%) (Auto) 0.2 % Basophils (%) (Auto) 0.2 % Neutrophils # (Auto) 5.72 K/uL Lymphocytes # (Auto) 3.34 K/uL Monocytes # (Auto) 0.75 K/uL Eosinophils # (Auto) 0.02 K/uL Basophils # (Auto) 0.02 K/uL RDW Standard Deviation 43.6 fL RDW Coefficient of Variation 13.7 % Immature Granulocyte % (Auto) 0.3 % Immature Granulocyte # (Auto) 0.03 K/uL Sodium Level 142 mmol/L Potassium Level 3.4 mmol/L Chloride Level 107 mmol/L Carbon Dioxide Level 29 mmol/L Anion Gap 7.0 mmol/L Blood Urea Nitrogen 9 mg/dl Creatinine 0.74 mg/dl Est Creatinine Clear Calc Drug Dose 91.2 ml/min Estimated GFR () 109.5 Estimated GFR (Non- 94.5 BUN/Creatinine Ratio 12.0 Random Glucose 119 mg/dl Calcium Level 9.0 mg/dl Magnesium Level 1.9 mg/dl Bedside Glucose 129 mg/dl 237 mg/dl 293 mg/dl Test 07/16/17 20:16 07/16/17 22:27 07/16/17 23:28 07/17/17 00:32 Bedside Glucose 408 mg/dl 189 mg/dl 134 mg/dl 116 mg/dl Test 07/17/17 01:28 Bedside Glucose 111 mg/dl Assessment & Plan 51 year old female with history of Rheumatoid Arthritis on Enbrel, Autoimmune Thrombocytopenia, DM presenting with cough and shortness of breath. ACUTE HYPOXEMIC RESPIRATORY FAILURE/SECONDARY TO PNEUMONIA/COPD EXACERBATION CT chest with contrast shows no evidence of PE/ground glass opacity -multilobar pneumonia worsening of respiratory status secondary to immunocompromised status on Enbrel for RA/possible underlying COPD due to prolonged history of smoking Sputum culture: normal ada Nasal MRSA swab: negative Continues to improve Being weaned off oxygen supplement Doxycycline + Zosyn IV Day #4 Solumedrol to be transitioned to prednisone taper continue [facility] consulted, appreciate Dr. Chowdary's recommendations C DIFF DIARRHEA diarrhea resolving Vanco PO day #4/10 HYPOKALEMIA Possible secondary to GI loss/diarrhea replace, monitor also monitor Mg PROLONGED QTC resolved Monitor QT interval while on citalopram HISTORY OF TOBACCO ABUSE Smokes a pack of cigarettes a day Nicotine patch Smoking cessation counseling provided HISTORY OF RHEUMATOID ARTHRITIS On Enbrel q. 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 Alegre DISPOSITION: Expected to be discharged home when medically stable [facility] Current Inpatient Medications: Current Inpatient Medications Medications (Trade) Dose Ordered Sig/Nino Route Start Time Stop Time Status Last Admin Dose Admin Cholecalciferol (Vitamin D Tab) 2,000 inter.unit QPM PO 07/12/17 21:00 08/11/17 20:59 07/16/17 20:46 2,000 INTER.UNIT Folic Acid (Folvite Tab) 3 mg QPM PO 07/12/17 21:00 08/11/17 20:59 07/16/17 20:46 3 MG Gabapentin (Neurontin Cap) 600 mg TID PO 07/12/17 21:00 08/11/17 20:59 07/16/17 20:46 600 MG Metoprolol Succinate (Toprol Xl Tab) 25 mg TID PO 07/12/17 21:00 08/11/17 20:59 07/16/17 20:46 25 MG Zolpidem Tartrate (Ambien Tab) 10 mg HSZ PRN PO 07/12/17 20:45 08/11/17 20:44 07/17/17 00:01 10 MG Acetaminophen (Tylenol Tab) 650 mg Q4H PRN PO 07/12/17 20:45 08/11/17 20:44 07/14/17 00:38 650 MG Al Hydrox/Mg Hydrox/Simethicone (Maalox Max Susp) 15 ml Q4H PRN PO 07/12/17 20:45 08/11/17 20:44 Magnesium Hydroxide (Milk Of Magnesia Susp) 30 ml Q12H PRN PO 07/12/17 20:45 08/11/17 20:44 Nitroglycerin (Nitrostat Tab) 0.4 mg UD PRN SL 07/12/17 20:45 08/11/17 20:44 Polyethylene (Miralax Powder Packet) 17 gm DAILY PRN PO 07/12/17 20:45 08/11/17 20:44 Glucose (Glucose 40% Gel) 15-30 GRAMS 15 GRAMS... UD PRN PO 07/12/17 20:45 08/11/17 20:44 Glucose (Glucose Chew Tab) 4-8 Tablets 4 Tabl... UD PRN PO 07/12/17 20:45 08/11/17 20:44 Dextrose (Dextrose 50% 50ML Syringe) 25-50ML 25ML FOR ... UD PRN IV 07/12/17 20:45 08/11/17 20:44 Glucagon (Glucagon Inj) 1 mg UD PRN SQ 07/12/17 20:45 08/11/17 20:44 Carbohydrates (Carbohydrates For Hypoglycemia) 15-30 GRAMS 15 grams if BSG 54-69... UD PRN PO 07/12/17 20:45 08/11/17 20:44 Ipratropium [place] (Atrovent 0.02% 0.5MG/2.5ML Neb) 0.5 mg Q4R INH 07/13/17 00:00 08/12/17 00:00 07/17/17 03:08 0.5 MG Levalbuterol (Xopenex 1.25MG/ 0.5ML Neb) 1.25 mg Q4R INH 07/13/17 00:00 08/12/17 00:00 07/17/17 03:08 1.25 MG Nicotine (Nicoderm Cq 21MG Patch) 1 patch QAM TD 07/12/17 21:45 08/11/17 21:44 07/16/17 07:54 1 PATCH Miscellaneous (Remove Nicoderm Patch) 1 ea HS N/A 07/13/17 21:00 08/12/17 20:59 07/16/17 20:48 1 EA Piperacillin Sod/ Tazobactam Sod 3.375 gm/Dextrose 115 ml @ 28 mls/hr Q8H IV 07/13/17 00:00 07/20/17 00:00 07/17/17 00:02 28 MLS/HR Miscellaneous Information (Consult) 1 ea UD PRN N/A 07/12/17 21:45 08/11/17 21:44 Promethazine HCl 12.5 mg/Sodium Chloride 50.5 ml @ 204 mls/hr Q6H PRN IV 07/12/17 21:45 08/11/17 21:44 Raspberry (Raspberry Syrup 5ml Cup) 5 ml Q6 PO 07/13/17 12:00 07/23/17 11:59 07/17/17 00:03 5 ML Vancomycin HCl (Vancomycin Oral Soln) 125 mg Q6 PO 07/13/17 12:00 07/23/17 11:59 07/17/17 00:04 125 MG Methylprednisolone Sodium Succinate 40 mg/Syringe 0.64 ml @ 1.5 mls/min [id number] IV 07/14/17 14:00 08/13/17 13:59 07/16/17 14:16 1.5 MLS/MIN Sodium Chloride ([place] Nasal [place]) 1 sprays PRN PRN NA 07/14/17 16:30 08/13/17 16:29 Miscellaneous Information (Consult Glycemic Management Pharmacy) 1 ea UD PRN N/A 07/15/17 11:28 08/14/17 11:27 Enoxaparin Sodium (Lovenox Inj) 40 mg QAM SQ 07/16/17 09:00 08/15/17 08:59 07/16/17 07:55 40 MG Doxycycline Hyclate (Vibramycin Cap) 100 mg BID PO 07/16/17 21:00 07/20/17 08:59 07/16/17 20:46 100 MG Insulin Human Regular 250 units/ Sodium Chloride 252.5 ml @ 0 mls/hr Q24H IV 07/16/17 21:30 08/15/17 21:29 Future Hold 07/16/17 21:54 2 MLS/HR Insulin Aspart (novoLOG ASPART) SLIDING SCALE ACHS SC 07/17/17 07:00 08/16/17 06:59 Insulin Aspart (novoLOG ASPART) SLIDING SCALE 0400 SC 07/17/17 04:00 08/16/17 03:59
[2017-07-17] MEDS ORDERED: INSULIN ASPART 100 UNITS/ML 3 ML PEN SC SCH (04:00)
[2017-07-17] MEDS: METHYLPREDNISOLONE IV 40 MG in SYRINGE 0 ML IV SCH (06:13)
[2017-07-17 06:27] LABS: BASO % 0.2 %; BASO ABS # 0.02 K/uL (0-0.2); EOS % 0.1 %; EOS ABS # 0.01 K/uL (0-0.5); HEMATOCRIT 42.8 % (37-47); HEMOGLOBIN 14.7 g/dL (12.0-16.0); IG# 0.05 K/uL (0.00-0.02); LYMPH % 36.6 %; LYMPH ABS # 3.52 K/uL (1.2-3.4); MEAN CELL VOLUME 85.8 fL (80-100); MEAN CORPUSCULAR HEMOGLOBIN 29.5 pg (25-34); MEAN CORPUSCULAR HGB CONC 34.3 g/dl (32-36); MEAN PLATELET VOLUME 9.5 fL (7.4-10.4); MONO % 7.4 %; MONO ABS # 0.71 K/uL (0.11-0.59); NEUT % 55.2 %; NEUT ABS # 5.31 K/uL (1.4-6.5); PLATELET COUNT 233 K/uL (130-400); RED CELL DISTRIBUTION WIDTH CV 13.6 % (11.5-14.5); RED CELL DISTRIBUTION WIDTH SD 42.7 fL (36.4-46.3); WHITE BLOOD COUNT 9.62 K/uL (4.8-10.8)
[2017-07-17 06:56] LABS: CREATININE 0.81 mg/dl (0.60-1.20); POTASSIUM 3.4 mmol/L (3.5-5.1)
[2017-07-17] MEDS: NICOTINE 21 MG/24 HR TDSY TD SCH (07:32)
[2017-07-17] MEDS: GABAPENTIN 300 MG CAP PO SCH ×2 (07:32→13:55)
[2017-07-17] MEDS: METOPROLOL SUCC 25MG EXT REL TAB PO SCH ×2 (07:32→13:55)
[2017-07-17] MEDS: DOXYCYCLINE HYCLATE 100 MG CAP PO SCH (07:33)
[2017-07-17] MEDS: ENOXAPARIN 40 MG/0.4 ML SYR SQ SCH (07:33)
[2017-07-17] MEDS: INSULIN ASPART 100 UNITS/ML 3 ML PEN SC SCH ×2 (07:37→11:52)
[2017-07-17] MEDS ORDERED: INSULIN GLARGINE SOLOSTAR 100 UNITS/ML 3 ML PEN SC SCH (09:00)
--- NOTE | 2017-07-17 09:35 | Pharmacy Progress Note ---
Pharmacy Glycemic Short Note 2 Date of Service July 17, 2017. OUTPATIENT ANTIDIABETIC REGIMEN: * Janumet XR (unknown dose) daily * A1c = 8.1 % 07/13/17 The patient is currently receiving: * Basal insulin: Lantus 13 units in the AM, 22 units in the PM yesterday - none ordered for this AM * Correctional Insulin: Novolog Correction per scale ACHS Goal Range: Low 110 mg/dL - High 140 mg/dL Correction Factor: 20 mg/dL/unit * Prandial insulin: Per carb ratio of 1 unit per 7 grams CHO consumed * Oral Agents: None currently Test 07/16/17 11:36 07/16/17 16:07 07/16/17 20:16 07/16/17 22:27 Bedside Glucose 237 mg/dl (70-90) 293 mg/dl (70-90) 408 mg/dl (70-90) 189 mg/dl (70-90) Test 07/16/17 23:28 07/17/17 00:32 07/17/17 01:28 07/17/17 04:06 Bedside Glucose 134 mg/dl (70-90) 116 mg/dl (70-90) 111 mg/dl (70-90) 120 mg/dl (70-90) Test 07/17/17 06:16 07/17/17 07:15 Random Glucose 100 mg/dl (70-99) Bedside Glucose 119 mg/dl (70-90) ASSESSMENT: 07/17/17 * Pharmacist on last evening received a call re: BSG of 408 (pt had Danish ice , anastacia ice cream & anastacia cookie prior to this) * Insulin drip was initiated @ 2130, but d/c'd at 0130 when BSGs were controlled * Fasting BSG stable this AM * Patient remains on Solu-medrol 40 mg IV BID * Est TDD of insulin ~80 units; will give ~40% of this as basal and tighten CF/ CR due to postprandial effects from steroids 07/16/17 * Solu-Medrol continues today in the same dosage * BSGs have improved following new insulin orders yesterday * She has received 82 units of insulin SQ + 5 units IV insulin over the last 24 hours. * Fasting BSG 129 this AM with 39 units of basal insulin on board, however the patient also received 7 units of Novolog correction overnight. * Will titrate the Lantus scale dose upwards slightly based upon an anticipated total daily insulin requirement of ~75-85 units per day * Slightly higher doses of Novolog may also be required given the post-prandial elevations seen in the evening yesterday and current estimates of total daily dose. 07/15/17 * Type 2 diabetic admitted for hypoxemic resp failure secondary to pneumonia/ COPD exacerbation * Out-pt oral hypoglycemics on hold. A1c 8.1, indicating there is room for improved control. * Glycemic control deteriorated with the addition of IV steroids yesterday afternoon. * Fasting BSG 172 this AM w/ 20 units Lantus on board. She likely requires even more basal insulin to achieve fasting targets while on current steroid dose. * Pre-lunch BSG 355 - indicating need for more prandial insulin. * Will adjust both basal and bolus insulin doses based upon pt wt and moderate- severe stress level dosing PLAN FOR INPATIENT GLYCEMIC CONTROL: * Continue to hold outpatient oral diabetes medications * Basal insulin * Lantus BID per the following scale: 15 units if BSG less than 140, 22 units if BSG 140 or greater * Bolus insulin * NovoLog per scale ACHS and at 0200 * Goal Range: Low 110 mg/dL - High 140 mg/dL * TIGHTEN Correction Factor: 15 mg/dL/unit * TIGHTEN Nutritional / Prandial insulin per carb ratio of 1 unit per 5 grams CHO consumed PLAN FOR DISCHARGE: * Could consider resuming home regimen of Janumet XR however an additional agent may be required to achieve A1c goal. Currently A1c of 8.1 and there is room for improvement with dietary modification. Recommend f/u within a few weeks of discharge for assessment of current regimen, need for additional drug therapy, dietary compliance and medication compliance.
--- NOTE | 2017-07-17 10:53 | PULMONARY PROGRESS NOTE ---
DATE: 07/17/2017 TIME: 10:00 a.m. SUBJECTIVE: The patient denies any shortness of breath. She states she was walking around the hallway without difficulty. She states that they checked a pulse oximetry on her and it was fine. She did tell me that her oxygen saturation had dropped during the night. Apparently, they had put her on some oxygen at some time during the night. It is showing that she was on OxyMask as of 4:00 a.m. Currently, she is on room air. The patient does have a history of sleep apnea. She states that she had her CPAP machine in her room since admission, but nobody had her wear it. I thought it was odd that she did not ask to wear it. She states her machine got sent home last night. However, at least we could rationalize why she might be hypoxic at night, but not during the day. She denies anything more than a mild cough. Sputum has been slightly cloudy, but not dark. OBJECTIVE: GENERAL: The patient appeared comfortable. She did not cough during the exam. She did seem stressed. She is extremely anxious for discharge. VITAL SIGNS: Temperature is 36.7. Her maximal temperature in the past 24 hours was 37.4, which was yesterday afternoon. Heart rate is 93 per minute. The rhythm is regular. Blood pressure is 141/80. LUNGS: Auscultation of the lung vaughan reveals inspiratory rhonchi at both lung bases. They are lesser noted in the upper lung vaughan. I would suspect these might be chronic, but I cannot say that with certainty just seeing her for the first time. Oxygen saturation on room air at present is 90%. Respiratory rate was 18 breaths per minute. EXTREMITIES: Showed no cyanosis, clubbing, or edema. The patient admits to having a strong desire to smoke. She does state that the patches seem to have helped with her withdrawal symptoms that she gets. LABORATORY DATA: White count is 9.62. Hemoglobin 14.7. Platelets 233,000. Electrolytes show sodium 143, potassium 3.4, chloride 105, bicarbonate 31. BUN 11 with creatinine 0.81. ASSESSMENT: 1. Bilateral pneumonia. 2. Obstructive sleep apnea. 3. Possible chronic obstructive pulmonary disease. COMMENTS AND RECOMMENDATIONS: The patient is clinically doing much better. I am not sure if she is totally objective when giving her history. She still sounds abnormal on exam. This may be chronic and she may have underlying COPD. She has not had a pulmonary function test for years. She appears stable. She is still on IV methylprednisolone 40 mg b.i.d. I would certainly change to prednisone. This should improve her diabetes status as well. She has been getting treated for C. diff. She relates that she did have a urinary infection a couple of weeks ago and was on Cipro. Perhaps that was the source for the infection. She is immunosuppressed from the Enbrel. She may need antibiotics a little longer than normal because of this. She is on Zosyn. We do not know what organism we are treating. This could be changed to Augmentin, but with some concern about the diarrhea affect. Dr. Chowdary had indicated he would be happy to see her as an outpatient if desired. I believe she may need to have a followup CAT scan of the chest perhaps in 6 weeks to make sure that the infiltrates have resolved. The infiltrates are not clearly seen on a chest x-ray.
--- NOTE | 2017-07-17 12:59 | Progress Note ---
Medicine Progress Note Date & Time of Visit: July 17, 2017 at 12:56. Subjective Seen resting in bed, comfortable, in good spirits States she feels better overall Ambulating in the hallways with no problems No dyspnea, no cough No abdominal pain no diarrhea Denies other symptoms States she is ready and would like to be discharged today Objective Last 8 Hrs Date Time Temp Pulse Resp B/P (MAP) Pulse Ox O2 Delivery O2 Flow Rate FiO2 07/17/17 12:00 Room Air 07/17/17 11:57 36.6 68 19 136/82 (100) 98 Room Air 07/17/17 11:17 75 18 92 Room Air 07/17/17 08:00 Room Air 07/17/17 07:18 68 18 95 Mask 2.5 07/17/17 07:16 36.7 71 20 141/80 (100) 95 Oxymask 2.5 Physical Exam: General- oriented x 3, not in distress, speaks in sentences with no effort Eyes- anicteric Neck- no JVD Lungs-very occasional rhonchi bilateral bases, no wheezing, good air entry Heart- regular rhythm; no murmur, normal rate Abdomen- normal bowel sounds, soft, nontender, non distended Extremities- no pretibial edema, no calf tenderness Neuro- alert, oriented x 3; no gross focal deficits Skin- warm & dry Laboratory Results: Last 24 Hours Test 07/16/17 16:07 07/16/17 20:16 07/16/17 22:27 07/16/17 23:28 Bedside Glucose 293 mg/dl 408 mg/dl 189 mg/dl 134 mg/dl Test 07/17/17 00:32 07/17/17 01:28 07/17/17 04:06 07/17/17 06:16 Bedside Glucose 116 mg/dl 111 mg/dl 120 mg/dl White Blood Count 9.62 K/uL Red Blood Count 4.99 M/uL Hemoglobin 14.7 g/dL Hematocrit 42.8 % Mean Corpuscular Volume 85.8 fL Mean Corpuscular Hemoglobin 29.5 pg Mean Corpuscular Hemoglobin Concent 34.3 g/dl Platelet Count 233 K/uL Mean Platelet Volume 9.5 fL Neutrophils (%) (Auto) 55.2 % Lymphocytes (%) (Auto) 36.6 % Monocytes (%) (Auto) 7.4 % Eosinophils (%) (Auto) 0.1 % Basophils (%) (Auto) 0.2 % Neutrophils # (Auto) 5.31 K/uL Lymphocytes # (Auto) 3.52 K/uL Monocytes # (Auto) 0.71 K/uL Eosinophils # (Auto) 0.01 K/uL Basophils # (Auto) 0.02 K/uL RDW Standard Deviation 42.7 fL RDW Coefficient of Variation 13.6 % Immature Granulocyte % (Auto) 0.5 % Immature Granulocyte # (Auto) 0.05 K/uL Sodium Level 143 mmol/L Potassium Level 3.4 mmol/L Chloride Level 105 mmol/L Carbon Dioxide Level 31 mmol/L Anion Gap 6.0 mmol/L Blood Urea Nitrogen 11 mg/dl Creatinine 0.81 mg/dl Est Creatinine Clear Calc Drug Dose 83.0 ml/min Estimated GFR () 98.2 Estimated GFR (Non- 84.7 BUN/Creatinine Ratio 13.6 Random Glucose 100 mg/dl Calcium Level 9.0 mg/dl Magnesium Level 1.9 mg/dl Test 07/17/17 07:15 07/17/17 11:18 Bedside Glucose 119 mg/dl 247 mg/dl Assessment & Plan 51 year old female with history of Rheumatoid Arthritis on Enbrel, Autoimmune Thrombocytopenia, DM presenting with cough and shortness of breath. ACUTE HYPOXEMIC RESPIRATORY FAILURE/SECONDARY TO PNEUMONIA/COPD EXACERBATION CT chest with contrast shows no evidence of PE/ground glass opacity -multilobar pneumonia worsening of respiratory status secondary to immunocompromised status on Enbrel for RA/possible underlying COPD due to prolonged history of smoking Sputum culture: normal ada Nasal MRSA swab: negative Continues to improve Weaned off oxygen supplementation two-step exercise test: No need for oxygen supplementation upon discharge Given IV doxycycline + Zosyn IV 4 days, transition to Augmentin plus doxycycline 6 days to complete 10 days therapy Solumedrol to be transitioned to prednisone taper continue Nebs 3 times daily at home as needed Pulmonary consulted, Dr. Chowdary Recommend repeat CT chest in 6 weeks Follow-up with medical care evaluation specialist Dr. Chowdary in 2 weeks C DIFF DIARRHEA diarrhea resolved Given Vanco p.o. 4 days Continue vancomycin p.o. 4 times daily 6 more days to complete 10 day therapy HYPOKALEMIA Possible secondary to GI loss/diarrhea Potassium 3.4 on discharge day Continue potassium supplement monitor as an outpatient PROLONGED QTC resolved Monitor QT interval while on citalopram HISTORY OF TOBACCO ABUSE Smokes a pack of cigarettes a day Nicotine patch Smoking cessation counseling provided HISTORY OF RHEUMATOID ARTHRITIS On Enbrel q. weekly Patient has not taken it last 2 weeks secondary to illness Continue to HOLD due to multilobar pneumonia Patient advised to discuss with her health care coordinator on Wednesday, July 19, 2017 , regarding when to restart Enbrel HISTORY OF AUTOIMMUNE THROMBOCYTOPENIA Platelet count within normal limits CODE STATUS: Full code DVT PROPHYLAXIS: Lovenox DISPOSITION: Discharge to home Medicine follow-up with Dr. Adrian lozano [facility] clinic in 3-5 days Follow-up with pulmonary service in 2 weeks Current Inpatient Medications: Current Inpatient Medications Medications (Trade) Dose Ordered Sig/Nino Route Start Time Stop Time Status Last Admin Dose Admin Cholecalciferol (Vitamin D Tab) 2,000 inter.unit QPM PO 07/12/17 21:00 08/11/17 20:59 07/16/17 20:46 2,000 INTER.UNIT Folic Acid (Folvite Tab) 3 mg QPM PO 07/12/17 21:00 08/11/17 20:59 07/16/17 20:46 3 MG Gabapentin (Neurontin Cap) 600 mg TID PO 07/12/17 21:00 08/11/17 20:59 07/17/17 07:32 600 MG Metoprolol Succinate (Toprol Xl Tab) 25 mg TID PO 07/12/17 21:00 08/11/17 20:59 07/17/17 07:32 25 MG Zolpidem Tartrate (Ambien Tab) 10 mg HSZ PRN PO 07/12/17 20:45 08/11/17 20:44 07/17/17 00:01 10 MG Acetaminophen (Tylenol Tab) 650 mg Q4H PRN PO 07/12/17 20:45 08/11/17 20:44 07/14/17 00:38 650 MG Al Hydrox/Mg Hydrox/Simethicone (Maalox Max Susp) 15 ml Q4H PRN PO 07/12/17 20:45 08/11/17 20:44 Magnesium Hydroxide (Milk Of Magnesia Susp) 30 ml Q12H PRN PO 07/12/17 20:45 08/11/17 20:44 Nitroglycerin (Nitrostat Tab) 0.4 mg UD PRN SL 07/12/17 20:45 08/11/17 20:44 Polyethylene (Miralax Powder Packet) 17 gm DAILY PRN PO 07/12/17 20:45 08/11/17 20:44 Glucose (Glucose 40% Gel) 15-30 GRAMS 15 GRAMS... UD PRN PO 07/12/17 20:45 08/11/17 20:44 Glucose (Glucose Chew Tab) 4-8 Tablets 4 Tabl... UD PRN PO 07/12/17 20:45 08/11/17 20:44 Dextrose (Dextrose 50% 50ML Syringe) 25-50ML 25ML FOR ... UD PRN IV 07/12/17 20:45 08/11/17 20:44 Glucagon (Glucagon Inj) 1 mg UD PRN SQ 07/12/17 20:45 08/11/17 20:44 Carbohydrates (Carbohydrates For Hypoglycemia) 15-30 GRAMS 15 grams if BSG 54-69... UD PRN PO 07/12/17 20:45 08/11/17 20:44 Ipratropium [place] (Atrovent 0.02% 0.5MG/2.5ML Neb) 0.5 mg Q4R INH 07/13/17 00:00 08/12/17 00:00 07/17/17 11:16 0.5 MG Levalbuterol (Xopenex 1.25MG/ 0.5ML Neb) 1.25 mg Q4R INH 07/13/17 00:00 08/12/17 00:00 07/17/17 11:16 1.25 MG Nicotine (Nicoderm Cq 21MG Patch) 1 patch QAM TD 07/12/17 21:45 08/11/17 21:44 07/17/17 07:32 1 PATCH Miscellaneous (Remove Nicoderm Patch) 1 ea HS N/A 07/13/17 21:00 08/12/17 20:59 07/16/17 20:48 1 EA Piperacillin Sod/ Tazobactam Sod 3.375 gm/Dextrose 115 ml @ 28 mls/hr Q8H IV 07/13/17 00:00 07/20/17 00:00 07/17/17 07:32 28 MLS/HR Miscellaneous Information (Consult) 1 ea UD PRN N/A 07/12/17 21:45 08/11/17 21:44 Promethazine HCl 12.5 mg/Sodium Chloride 50.5 ml @ 204 mls/hr Q6H PRN IV 07/12/17 21:45 08/11/17 21:44 Raspberry (Raspberry Syrup 5ml Cup) 5 ml Q6 PO 07/13/17 12:00 07/23/17 11:59 07/17/17 11:52 5 ML Vancomycin HCl (Vancomycin Oral Soln) 125 mg Q6 PO 07/13/17 12:00 07/23/17 11:59 07/17/17 11:52 125 MG Sodium Chloride ([place] Nasal [place]) 1 sprays PRN PRN NA 07/14/17 16:30 08/13/17 16:29 Miscellaneous Information (Consult Glycemic Management Pharmacy) 1 ea UD PRN N/A 07/15/17 11:28 08/14/17 11:27 Enoxaparin Sodium (Lovenox Inj) 40 mg QAM SQ 07/16/17 09:00 08/15/17 08:59 07/17/17 07:33 40 MG Doxycycline Hyclate (Vibramycin Cap) 100 mg BID PO 07/16/17 21:00 07/20/17 08:59 07/17/17 07:33 100 MG Insulin Aspart (novoLOG ASPART) SLIDING SCALE ACHS SC 07/17/17 07:00 08/16/17 06:59 07/17/17 11:52 15 UNITS Insulin Glargine (Lantus Solostar Pen) See Protocol Text BID SC 07/17/17 09:00 08/16/17 08:59 07/17/17 09:20 15 UNITS Potassium Chloride (Klor-Con Tab) 40 meq ONE PO 07/17/17 12:30 08/16/17 12:29 UNV Potassium Chloride (Klor-Con Tab) 20 meq QAM PO 07/18/17 09:00 08/17/17 08:59 UNV
[2017-07-17] MEDS ORDERED: POTASSIUM CHLORIDE 20 MEQ TABCR PO ONE (13:00)
[2017-07-17] MEDS ORDERED: PRED10TA PO (13:15)
[2017-07-17] MEDS ORDERED: MCRK20 PO (13:15)
[2017-07-17] MEDS ORDERED: DXY100 PO (13:15)
[2017-07-17] MEDS ORDERED: XPNINS1255 INH (13:15)
[2017-07-17] MEDS ORDERED: AMOX875T PO (13:15)
[2017-07-17] MEDS ORDERED: ATRINS INH (13:15)
[2017-07-17] MEDS ORDERED: NICO21DI4 TD (13:15)
[2017-07-17] MEDS ORDERED: Vancomycin PO (13:15)
--- NOTE | 2017-07-17 13:23 | Discharge Instructions ---
Discharge Instructions Date of Service July 17, 2017. Admission Reason for Admission: Hypoxia, Pneumonia Discharge Discharge Diagnosis / Problem: MULTILOBAR PNEUMONIA, CLOSTRIDIUM DIFFICILE DIARRHEA Discharge Goals Goal(s): Diagnostic testing, Therapeutic intervention Activity Recommendations Activity Limitations: as noted below (NO HEAVY EXERTION UNTIL RE-EVALUATED BY PRIMARY CARE PHYSICIAN) Lifting Limitations: until after follow-up appointment Exercise/Sports Limitations: until after follow-up appointment Driving or Machine Use: NO DRIVING UNTIL RE-EVALUATED BY PRIMARY CARE PHYSICIAN . Instructions / Follow-Up Instructions / Follow-Up Please review new medication list and follow instructions carefully. Ensure adequate daily fluid intake. Also ensure to disinfect toilet after each use while finishing vancomycin. Strict handwashing after using the bathroom with soap and water. Call primary care physician or return to ER immediately if with recurrence of symptoms Follow up with Dr. Campbell on Friday July 21, 2017 at 9:35am. Follow up with [facility] [facility] Dr. Chowdary in 2 weeks . Current Hospital Diet Patient's current hospital diet: Diabetes Type 2 Diet Discharge Diet Recommended Diet: AHA Diet (Heart Healthy), Diabetes Type 2 Diet Procedures Procedures Performed: CT scan of the chest Pending Studies Studies pending at discharge: no Laboratory Results Hemoglobin A1c Test 07/13/17 04:00 Range/Units Estimated Average Glucose 186 mg/dl Hemoglobin A1c 8.1 H 4.5-5.6 % Medical Emergencies . Who to Call and When: Medical Emergencies: If at any time you feel your situation is an emergency, please call 911 immediately. . Non-Emergent Contact Non-Emergency issues call your: Primary Care Provider, [facility] [facility] Call Non-Emergent contact if: you have a fever, you have any medication questions . . "Provider Documentation" section prepared by Bradley Young. .
[2017-07-17] MEDS ORDERED: CLX20 PO (13:30)
--- NOTE | 2017-07-17 13:32 | Discharge Summary ---
Discharge Summary Date of Service July 17, 2017. Discharge Summary Admission Date: July 12, 2017 at 20:27 Discharge Date: July 17, 2017 Discharge Disposition: Home Principal Diagnosis: ACUTE HYPOXEMIC RESPIRATORY FAILURE/SECONDARY TO PNEUMONIA/COPD EXACERBATION Secondary Diagnoses/Problems: Please refer to hospital course below. Procedures: (CHEST FOR PE) ANGIO WITH CLINICAL HISTORY: 51 years-old Female presenting with ^eval for PE ^hypoxic, cough, shortness of breath. TECHNIQUE: Multidetector CT angiography of the chest was performed after administration of intravenous contrast. 3-D volumetric and/or maximum intensity projection (MIP) images were subsequently reconstructed for review. IV contrast: 108 mL of Optiray 320. A dose lowering technique was used consistent with the principles of ALARA (as low as reasonably achievable). COMPARISON: None. CT DOSE (mGy.cm): The estimated cumulative dose is 500.11 mGy.cm. FINDINGS: Rn Referral topogram: Unremarkable. Pulmonary vasculature: The study is adequate for assessment of the pulmonary vascular tree. No filling defect within the pulmonary arteries to suggest embolus. Main pulmonary artery enlarged measuring 3.6 cm in diameter. No flattening of the interventricular septum. No intracardiac filling defect. No reflux of contrast into the hepatic veins. Remaining chest: On soft tissue windows, normal thyroid and thoracic inlet. No axillary, supraclavicular, hilar, or mediastinal lymphadenopathy. Atherosclerosis of the aorta. Multichamber enlargement of the heart. Coronary artery calcification. Small pericardial effusion. No pleural effusion. Hepatic steatosis. On lung windows, patchy groundglass opacities in all 5 lobes minimal subsegmental bronchial debris. Bronchial wall thickening. Central airways patent. Evaluation of lung parenchyma is mildly degraded due to respiratory motion artifact. On bone windows, normal osseous structures. IMPRESSION: 1. No evidence of pulmonary embolus. 2. Patchy groundglass opacities involving all 5 lobes consistent with multifocal bronchopneumonia, likely atypical pneumonia. This should be followed to resolution. 3. Small pericardial effusion. 4. Hepatic steatosis. Electronically signed by: Conrad Davis M.D. 07/12/2017 8:12 PM Consultations: Pulmonary Dr. Chowdary Pending Studies/Follow-Up: Please refer to hospital course below. Medication Reconciliation New Medications: Amoxicillin & Pot Clavulanate (Augmentin 875-125 mg) 1 Tab Tab 875 MG PO BID for 6 Days, #12 TAB 0 Refills Citalopram (Citalopram Hydrobromide) 20 Mg Tab 10 MG PO DAILY for 14 Days Prednisone Tab (Prednisone) 10 Mg Tab 10 MG PO UD for 10 Days, #21 TAB 0 Refills take 4 tabs po daily x 2 days, then take 3 tabs po daily x 2 days, then take 2 tabs po daily x 2 days, then take 1 tab po daily x 2 days, then take 1/2 tabs po daily x 2 days, then STOP [Vancomycin] () 125 MG PO QID for 6 Days, #24 CAP 0 Refills Doxycycline Hyclate (Doxycycline Hyclate) 100 Mg Cap 100 MG PO BID for 6 Days, #12 CAP 0 Refills Ipratropium Egan (Ipratropium Egan) 0.5 Mg/2.5 Ml Nebu 0.5 MG INH TID for 7 Days, #30 UNITS 1 Refill may also use every 4 hours as needed for shortnes of breath/wheezing Levalbuterol (Levalbuterol) 1.25 Mg/0.5 Ml Nebu 1.25 MG INH TID for 7 Days, #30 UNITS 1 Refill may also use every 4 hours as needed for shortnes of breath/wheezing Nicotine (Nicoderm Cq) 21 Mg/24 Hr Dis 1 PATCH TD QAM for 14 Days, #14 PATCH 2 Refills do not use while smoking Potassium Chloride (Klor-Con M20) 20 Meq Tabcr 20 MEQ PO QAM for 7 Days, #7 TAB 0 Refills Continued Medications: Cholecalciferol (Vitamin D 1000 Unit) 1,000 Unit Cap 2000 INTER.UNIT PO QPM, CAP Folic Acid (Folvite) 1 Mg Tab 3 MG PO QPM, TAB Gabapentin (Neurontin) 300 Mg Cap 600 MG PO TID, CAP Metoprolol Succinate (Metoprolol Succinate ER) 25 Mg Tabcr 25 MG PO TID Sitagliptin-Metformin Hcl (Janumet Xr) 1 Tab Tab Unknown Dose PO DAILY Zolpidem Tartrate (Ambien) 10 Mg Tab 10 MG PO HS PRN, TAB Discontinued Medications: Citalopram (Celexa *) 20 Mg Tab 20 MG PO QPM, TAB Etanercept (Enbrel) 50 Mg/ Inj 0.98 ML SQ WK Meloxicam (Mobic) 7.5 Mg Tab 15 MG PO QPM, TAB Admission Information HPI (per Admitting provider): This is a 51-year-old female with history of RA on Enbrel, history of autoimmune thrombocytopenia ,type 2 diabetes Presented to ED with complaint of shortness of breath, cough, fever chills ongoing for the last 5 days Reports of dyspnea on exertion especially when climbing up flight of stairs No syncope Patient reports of having dry cough, decreased appetite since last Wednesday, developed diarrhea which lasted for about 3 days She noticed to have a fever 103 last night Denies of any sinus congestion or postnasal drip report of having intermittent wheeze for the last days, using her albuterol inhaler about every 4 hours with minimal relief No complaint of chest pain, no dizzy spell, no palpitation Patient has history of [id number] smoking She is on Enbrel weekly for history of rheumatoid arthritis Has not been taking her Enbrel for the last 2 weeks secondary to illness In the ER patient was found to be hypoxic with SPO2 88% in room air Oxygenation improved to 92% on 6 L O2 via nasal cannula-patient is not on home O2 During my time of interview patient states she feels completely fine Denies of any shortness of breath, no chest heaviness Afebrile in ER Physical Exam (per Admitting): General Appearance: no apparent distress Head: normocephalic, atraumatic Eyes: normal inspection, PERRL, EOMI, sclerae normal Neck: thyroid normal, no JVD, no carotid bruits, trachea midline Respiratory/Chest: no respiratory distress, no accessory muscle use, + wheezing Cardiovascular: no JVD, no murmur, normal peripheral pulses, + bradycardia Abdomen/GI: normal bowel sounds, non tender, soft Extremities/Musculoskelatal: normal capillary refill, no pedal edema, normal range of motion (Family with) Neurologic/Psych: no motor/sensory deficits, alert, normal reflexes, oriented x 3 Skin: normal color, warm/dry, no rash Hospital Course 51 year old female with history of Rheumatoid Arthritis on Enbrel, Autoimmune Thrombocytopenia, DM presenting with cough and shortness of breath. ACUTE HYPOXEMIC RESPIRATORY FAILURE/SECONDARY TO PNEUMONIA/COPD EXACERBATION CT chest with contrast shows no evidence of PE/ground glass opacity -multilobar pneumonia worsening of respiratory status secondary to immunocompromised status on Enbrel for RA/possible underlying COPD due to prolonged history of smoking Sputum culture: normal ada Nasal MRSA swab: negative Continues to improve Weaned off oxygen supplementation two-step exercise test: No need for oxygen supplementation upon discharge Given IV doxycycline + Zosyn IV 4 days, transition to Augmentin plus doxycycline 6 days to complete 10 days therapy Solumedrol given, to be transitioned to prednisone taper continue Nebs 3 times daily at home as needed Pulmonary consulted, Dr. Chowdary Recommend repeat CT chest in 6 weeks Follow-up with land acquisition specialist Dr. Chowdary in 2 weeks C DIFF DIARRHEA diarrhea resolved Given Vanco 125mg p.o QOD. 4 days Continue vancomycin p.o. 4 times daily 6 more days to complete 10 day therapy HYPOKALEMIA Possible secondary to GI loss/diarrhea Potassium 3.4 on discharge day Continue potassium supplement monitor as an outpatient PROLONGED QTC resolved Citalopram reduced from 20mg to 10mg po daily Monitor QT interval while on citalopram HISTORY OF TOBACCO ABUSE Smokes a pack of cigarettes a day Nicotine patch Smoking cessation counseling provided HISTORY OF RHEUMATOID ARTHRITIS On Enbrel q. weekly Patient has not taken it last 2 weeks secondary to illness Continue to HOLD due to multilobar pneumonia Patient advised to discuss with her director transition on Wednesday, July 19, 2017 , regarding when to restart Enbrel HEPATIC STEATOSIS seen on CT chest monitor DISPOSITION: Discharge to home Medicine follow-up with Dr. Adrian lozano [facility] in 3-5 days Follow-up with pulmonary service in 2 weeks Total time spent on discharge = 45 minutes This includes examination of the patient, discharge planning, medication reconciliation, and communication with other providers. Discharge Instructions Discharge Instructions Date of Service July 17, 2017. Admission Reason for Admission: Hypoxia, Pneumonia Discharge Discharge Diagnosis / Problem: MULTILOBAR PNEUMONIA, CLOSTRIDIUM DIFFICILE DIARRHEA Discharge Goals Goal(s): Diagnostic testing, Therapeutic intervention Activity Recommendations Activity Limitations: as noted below (NO HEAVY EXERTION UNTIL RE-EVALUATED BY PRIMARY CARE PHYSICIAN) Lifting Limitations: until after follow-up appointment Exercise/Sports Limitations: until after follow-up appointment Driving or Machine Use: NO DRIVING UNTIL RE-EVALUATED BY PRIMARY CARE PHYSICIAN . Instructions / Follow-Up Instructions / Follow-Up Please review new medication list and follow instructions carefully. Ensure adequate daily fluid intake. Also ensure to disinfect toilet after each use while finishing vancomycin. Strict handwashing after using the bathroom with soap and water. Call primary care physician or return to ER immediately if with recurrence of symptoms Follow up with Dr. Campbell on Friday July 21, 2017 at 9:35am. Follow up with Mangle [employer] Dr. Chowdary in 2 weeks . Current Hospital Diet Patient's current hospital diet: Diabetes Type 2 Diet Discharge Diet Recommended Diet: AHA Diet (Heart Healthy), Diabetes Type 2 Diet Procedures Procedures Performed: CT scan of the chest Pending Studies Studies pending at discharge: no Laboratory Results Hemoglobin A1c Test 07/13/17 04:00 Range/Units Estimated Average Glucose 186 mg/dl Hemoglobin A1c 8.1 H 4.5-5.6 % Medical Emergencies . Who to Call and When: Medical Emergencies: If at any time you feel your situation is an emergency, please call 911 immediately. . Non-Emergent Contact Non-Emergency issues call your: Primary Care Provider, [facility] Call Non-Emergent contact if: you have a fever, you have any medication questions . . "Provider Documentation" section prepared by Bradley Young. .
[2017-07-18] MEDS ORDERED: POTASSIUM CHLORIDE 20 MEQ TABCR PO SCH (09:00)
== END 2017-07-17 14:09 | disposition home or self-care (01) | DRG 193 ==
LOC: C.EDB 17:25 → C.2E 20:27 → UNDOADMIN 20:27 → ENRESERV 20:31
PROVIDERS: ADMIT Hospitalist; ATTEND Internal Medicine
DX: J18.9 Pneumonia, unspecified organism (principal); J96.01 Acute respiratory failure with hypoxia; J44.1 Chronic obstructive pulmonary disease with (acute) exacerbation; A04.72 Enterocolitis due to Clostridium difficile, not specified as recurrent; E11.9 Type 2 diabetes mellitus without complications; D69.6 Thrombocytopenia, unspecified; M06.9 Rheumatoid arthritis, unspecified; F17.210 Nicotine dependence, cigarettes, uncomplicated; R19.7 Diarrhea, unspecified; E87.6 Hypokalemia; I45.81 Long QT syndrome; K76.0 Fatty (change of) liver, not elsewhere classified

== ENCOUNTER 2018-05-30 19:07 | Inpatient (IN) ==
[2018-05-30] MEDS ORDERED: ACETAMINOPHEN 500 MG TAB PO STA (19:30)
[2018-05-30] MEDS ORDERED: SODIUM CHLORIDE 0.9% 1000ML 1,000 ML IV ONE (19:30)
[2018-05-30] MEDS ORDERED: ALBUTEROL 0.083% NEBU SOLN 3 ML VIAL NEB STA (19:30)
[2018-05-30] MEDS ORDERED: IBUPROFEN 800 MG TAB PO STA (19:30)
[2018-05-30 20:09] LABS: Basophils # (auto) 0.01 K/uL (0-0.2); Basophils % (auto) 0.1 %; Eosinophils # (auto) 0.01 K/uL (0-0.5); Eosinophils % (auto) 0.1 %; Hematocrit (blood only) 47.9 % (37-47); Hemoglobin 17.2 g/dL (12.0-16.0); Immature Granulocytes # (auto) 0.02 K/uL (0.00-0.02); Immature Granulocytes % (auto) 0.2 %; Lymphocytes # (auto) 1.43 K/uL (1.2-3.4); Lymphocytes % (auto) 17.2 %; Mean Corpuscular Hemoglobin 31.6 pg (25-34); Mean Corpuscular Hgb Conc 35.9 g/dL (32-36); Mean Corpuscular Volume 87.9 fL (80-100); Mean Platelet Volume 10.8 fL (7.4-10.4); Monocytes # (auto) 0.98 K/uL (0.11-0.59); Monocytes % (auto) 11.8 %; Neutrophils # (auto) 5.84 K/uL (1.4-6.5); Neutrophils % (auto) 70.6 %; Platelet Count 134 K/uL (130-400); RDW Coefficient of Variation 13.7 % (11.5-14.5); RDW Standard Deviation 44.2 fL (36.4-46.3); Red Blood Count 5.45 M/uL (4.2-5.4); White Blood Count 8.29 K/uL (4.8-10.8)
[2018-05-30 20:16] LABS: BUN Creatinine Ratio 13.2 (10-20); Calcium 9.1 mg/dl (8.5-10.1); Creatinine Clr Calc Pharmacy 77.6 ml/min; Est GFR (African American) 93.3; Est GFR (Non-African American) 80.5; Potassium 3.7 mmol/L (3.5-5.1)
[2018-05-30 20:19] LABS: Bilirubin,Total 0.5 mg/dl (0.2-1); Globulin 4.1 gm/dl (2.5-4.0); Total Protein 8.1 gm/dl (6.4-8.2)
--- NOTE | 2018-05-30 20:21 | Emergency Department Note ---
History of Present Illness General Chief complaint: Flu Like Symptoms Stated complaint: FLU Time Seen by Provider: 05/30/18 19:15 History of Present Illness Maximum Pain Intensity: 4 This patient is a 52-year-old female who presents to the emergency department with 2 days of a fever and nonproductive cough. The patient reports her fever was 103 F at home. Her daughter was recently diagnosed with influenza. The patient also has felt short of breath. This morning when she got up, she had a coughing spell, and thinks that she may have had a syncopal episode resulting in falling down 6 [address]ed steps. She denies hitting her head. She is experiencing pain in the neck. She denies any chest pain. She denies any abdominal pain. She is having some pain into the right hip. She has tried Tylenol and ibuprofen with minimal relief of her symptoms. Home Medications Home Medications Medication Instructions Recorded Confirmed Type albuterol sulfate [Ventolin HFA] 2 puff INHALATION Q4 PRN 05/30/18 05/30/18 History budesonide-formoterol [Symbicort] 2 puff INHALATION BID 05/30/18 05/30/18 History cholecalciferol (vitamin D3) 2,000 unit PO HS 05/30/18 05/30/18 History [Vitamin D3] escitalopram oxalate [Lexapro] 10 mg PO HS 05/30/18 05/30/18 History folic acid 3 mg PO HS 05/30/18 05/30/18 History gabapentin 600 mg PO TID 05/30/18 05/30/18 History lisinopril 5 mg PO HS 05/30/18 05/30/18 History metoprolol succinate 100 mg PO HS 05/30/18 05/30/18 History sarilumab [Kevzara] 1 dose SUBCUT DIRECTED 05/30/18 05/30/18 History sitagliptin-metformin [Janumet XR] 1 tab PO BID 05/30/18 05/30/18 History zolpidem 10 mg PO HS PRN 05/30/18 05/30/18 History Allergies Allergy/AdvReac Type Severity Reaction Status Date / Time No Known Allergies Allergy Verified 05/30/18 20:51 Past Med/Surg History Medical History Smoking (Chronic) Hypertensive heart disease (Chronic) Hypertension (Chronic) COPD (chronic obstructive pulmonary disease) (Chronic) Rheumatoid arthritis (Chronic) History of ITP (Chronic) Still's disease (Chronic) Type 2 diabetes mellitus (Chronic) Sleep apnea (Chronic) Hypertension Surgical History Status post section (Chronic) Family History Aunt Breast cancer Grandmother Breast cancer Father Heart disease Social History Preferred Language: Uzbek Communication Ability: Effective Statistical Geneticist Required: No Beliefs That Will Affect Care: None Current Living Situation: Family Feels Safe at Home: Yes Safety Concerns: Feels Safe At This Time Smoking Status: Current every day smoker Hx Alcohol Use: No Hx Substance Use: No Review of Systems A total of 10 systems reviewed and were otherwise negative Physical Exam Vital Signs Vital Signs - 24 hr 05/30/18 21:05 05/30/18 21:32 05/30/18 22:40 Temperature Temperature Source Pulse Rate - Lying Pulse Rate - Sitting Pulse Rate - Standing Pulse Rate Pulse Rate [Finger] Pulse Rate [Radial] 91 H 84 Pulse Rhythm [Radial] Regular Regular Pulse Strength [Radial] Normal Normal Respiratory Rate 18 24 Respiratory Effort / Characteristics Non-Labored Spontaneous Non-Labored Spontaneous Respiratory Depth Normal Normal Respiratory Pattern Regular Regular Blood Pressure - Lying Blood Pressure - Sitting Blood Pressure- Standing Blood Pressure Blood Pressure [Left Arm] 110/57 L 98/60 L Blood Pressure Mean [Left Arm] 74 72 Blood Pressure Position [Left Arm] Pulse Oximetry 84 L 92 93 Oxygen Delivery Method Room Air Nasal Cannula Nasal Cannula Oxygen Flow Rate 4 3 05/30/18 23:42 05/31/18 00:39 05/31/18 01:50 Temperature 36.9 C Temperature Source Oral Pulse Rate - Lying Pulse Rate - Sitting Pulse Rate - Standing Pulse Rate 86 Pulse Rate [Finger] Pulse Rate [Radial] 92 H Pulse Rhythm [Radial] Pulse Strength [Radial] Respiratory Rate 18 20 Respiratory Effort / Characteristics Non-Labored Spontaneous Non-Labored Respiratory Depth Normal Normal Respiratory Pattern Regular Regular Blood Pressure - Lying Blood Pressure - Sitting Blood Pressure- Standing Blood Pressure 102/59 L Blood Pressure [Left Arm] 124/59 L Blood Pressure Mean [Left Arm] 80 Blood Pressure Position [Left Arm] Lying Pulse Oximetry 95 93 Oxygen Delivery Method Nasal Cannula Nasal Cannula Nasal Cannula Oxygen Flow Rate 2 2 2 05/31/18 03:12 05/31/18 03:52 05/31/18 04:04 Temperature 36.9 C Temperature Source Oral Pulse Rate - Lying Pulse Rate - Sitting Pulse Rate - Standing Pulse Rate 93 H Pulse Rate [Finger] Pulse Rate [Radial] 86 82 Pulse Rhythm [Radial] Regular Pulse Strength [Radial] Normal Respiratory Rate 18 16 Respiratory Effort / Characteristics Non-Labored Spontaneous Non-Labored Spontaneous Respiratory Depth Normal Respiratory Pattern Regular Blood Pressure - Lying Blood Pressure - Sitting Blood Pressure- Standing Blood Pressure Blood Pressure [Left Arm] 117/72 Blood Pressure Mean [Left Arm] 87 Blood Pressure Position [Left Arm] Lying Pulse Oximetry 91 92 Oxygen Delivery Method Nasal Cannula Nasal Cannula Oxygen Flow Rate 2 2 05/31/18 04:18 05/31/18 07:04 05/31/18 07:50 Temperature 37 C 37 C Temperature Source Oral Oral Pulse Rate - Lying Pulse Rate - Sitting Pulse Rate - Standing Pulse Rate Pulse Rate [Finger] Pulse Rate [Radial] 88 79 82 Pulse Rhythm [Radial] Pulse Strength [Radial] Respiratory Rate 22 16 18 Respiratory Effort / Characteristics Non-Labored Spontaneous Respiratory Depth Respiratory Pattern Blood Pressure - Lying Blood Pressure - Sitting Blood Pressure- Standing Blood Pressure Blood Pressure [Left Arm] 121/72 129/75 Blood Pressure Mean [Left Arm] 88 93 Blood Pressure Position [Left Arm] Lying Lying Pulse Oximetry 91 93 94 Oxygen Delivery Method Nasal Cannula Nasal Cannula Nasal Cannula Oxygen Flow Rate 2 2 2 05/31/18 10:03 05/31/18 10:09 05/31/18 12:02 Temperature 37.2 C Temperature Source Oral Pulse Rate - Lying 80 Pulse Rate - Sitting 84 Pulse Rate - Standing 88 Pulse Rate Pulse Rate [Finger] Pulse Rate [Radial] 81 Pulse Rhythm [Radial] Pulse Strength [Radial] Respiratory Rate 18 Respiratory Effort / Characteristics Non-Labored Spontaneous SOB on Exertion Normal for Patient Respiratory Depth Normal Respiratory Pattern Regular Blood Pressure - Lying 117/70 Blood Pressure - Sitting 127/77 Blood Pressure- Standing 131/81 Blood Pressure Blood Pressure [Left Arm] 131/78 Blood Pressure Mean [Left Arm] 95 Blood Pressure Position [Left Arm] Lying Pulse Oximetry 91 Oxygen Delivery Method Nasal Cannula Nasal Cannula Oxygen Flow Rate 2 2 05/31/18 13:35 05/31/18 15:30 05/31/18 16:55 Temperature 37.0 C Temperature Source Oral Pulse Rate - Lying Pulse Rate - Sitting Pulse Rate - Standing Pulse Rate Pulse Rate [Finger] 79 Pulse Rate [Radial] 81 Pulse Rhythm [Radial] Pulse Strength [Radial] Respiratory Rate 18 18 Respiratory Effort / Characteristics Non-Labored Spontaneous Non-Labored Spontaneous SOB on Exertion Respiratory Depth Normal Respiratory Pattern Regular Blood Pressure - Lying Blood Pressure - Sitting Blood Pressure- Standing Blood Pressure Blood Pressure [Left Arm] 135/74 Blood Pressure Mean [Left Arm] 94 Blood Pressure Position [Left Arm] Lying Pulse Oximetry 86 L 93 Oxygen Delivery Method Room Air Nasal Cannula Nasal Cannula Oxygen Flow Rate 2 2 05/31/18 20:20 Temperature Temperature Source Pulse Rate - Lying Pulse Rate - Sitting Pulse Rate - Standing Pulse Rate Pulse Rate [Finger] 92 H Pulse Rate [Radial] Pulse Rhythm [Radial] Pulse Strength [Radial] Respiratory Rate 16 Respiratory Effort / Characteristics Non-Labored Spontaneous Respiratory Depth Respiratory Pattern Blood Pressure - Lying Blood Pressure - Sitting Blood Pressure- Standing Blood Pressure Blood Pressure [Left Arm] Blood Pressure Mean [Left Arm] Blood Pressure Position [Left Arm] Pulse Oximetry 93 Oxygen Delivery Method Nasal Cannula Oxygen Flow Rate 2 Constitutional WD/WN, vitals as above Eyes EOM intact bilaterally ENMT external ear and nose normal, oropharynx normal Neck trachea midline Respiratory normal respiratory effort, lungs clear to auscultation Cardiovascular Tachycardic, regular rhythm Gastrointestinal (Abdomen) Slight tenderness to palpation noted over the left flank area. No ecchymosis or bruising noted. Bowel sounds present in all 4 quadrants. Musculoskeletal no cyanosis or clubbing, extremities motor strength 5/5 Mild tenderness palpation over the cervical spinous processes. Slight pain with flexion of the neck. No tenderness over the rest of the thorax or spine. Skin no rashes, warm and dry Neurologic Alert and oriented x3. No focal motor deficits. Psychiatric Acting appropriately Lymphatic Lymphadenopathy noted in the posterior cervical chain bilaterally. Course Patient was seen and examined Vital signs including blood pressure were reviewed medications list was verified with patient Labs were obtained, and a saline lock was established She was hydrated with 1 L of normal saline. The patient was given an albuterol treatment Imaging was performed and reviewed The patient was medicated with Tylenol and ibuprofen. Upon reevaluation, the patient was feeling no better. We discussed her workup. She voiced understanding. She and her family had no further questions. The case was discussed with case management and subsequently the [facility] service. They agreed to evaluate the patient for possible inpatient management. Consultations Consultation #1: Dr. Rowan Administered Medications Budesonide/Formoterol Fumarate (Symbicort 160mcg/4.5mcg) 2 puffs INH BID [facility] Stop: 06/30/18 00:57 Last Admin: 05/31/18 08:06 Dose: 2 puffs Documented by: [id number] Admin: 05/31/18 01:58 Dose: 2 puffs Documented by: [id number] Gabapentin (Neurontin) 600 mg PO TID [facility] Stop: 06/30/18 08:59 Last Admin: 05/31/18 13:28 Dose: 600 mg Documented by: [id number] Admin: 05/31/18 08:07 Dose: 600 mg Documented by: [id number] Lactated Ringer's (Lr) 1,000 mls @ 125 mls/hr IV .Q8H [facility] Stop: 06/30/18 00:57 Last Admin: 05/31/18 17:41 Dose: 125 mls/hr Documented by: [id number] Infusion: 05/31/18 17:41 Dose: 125 mls/hr Documented by: [id number] Admin: 05/31/18 09:59 Dose: 125 mls/hr Documented by: [id number] Infusion: 05/31/18 09:59 Dose: 125 mls/hr Documented by: [id number] Admin: 05/31/18 02:27 Dose: 125 mls/hr Documented by: [id number] Insulin Aspart (Novolog Flexpen) 0 units SC ACHS [facility] Stop: 06/30/18 07:29 Last Admin: 05/31/18 17:35 Dose: 9 units Documented by: [id number] Cosigned by: [id number] Admin: 05/31/18 13:35 Dose: 5 units Documented by: [id number] Cosigned by: [id number] Admin: 05/31/18 08:05 Dose: 7 units Documented by: [id number] Cosigned by: [id number] Insulin Glargine (Lantus Solostar Pen) 0 units SC BID [facility]; Protocol Stop: 06/30/18 08:59 Last Admin: 05/31/18 08:06 Dose: 10 units Documented by: [id number] Cosigned by: [id number] Ioversol (Optiray 320 100ml) 94 ml IV ONCE PRN PRN Reason: Interaction Checking Stop: 06/03/18 21:35 Last Admin: 05/30/18 21:36 Dose: 94 ml Documented by: [id number] Ipratropium Sullivan (Atrovent 0.02% 0.5mg/2.5ml) 0.5 mg INH Q6R [facility] Stop: 06/30/18 01:59 Last Admin: 05/31/18 20:18 Dose: 0.5 mg Documented by: [id number] Admin: 05/31/18 13:33 Dose: 0.5 mg Documented by: [id number] Admin: 05/31/18 07:04 Dose: 0.5 mg Documented by: [id number] Admin: 05/31/18 03:10 Dose: 0.5 mg Documented by: [id number] Levalbuterol HCl (Xopenex 1.25mg/0.5ml Neb) 1.25 mg INH Q6R [facility] Stop: 06/30/18 01:59 Last Admin: 05/31/18 20:20 Dose: 1.25 mg Documented by: [id number] Admin: 05/31/18 13:33 Dose: 1.25 mg Documented by: [id number] Admin: 05/31/18 07:04 Dose: 1.25 mg Documented by: [id number] Admin: 05/31/18 03:09 Dose: 1.25 mg Documented by: [id number] Menthol (Nice) 1 larisa BUCCAL PRN PRN PRN Reason: Cough Stop: 06/30/18 09:22 Last Admin: 05/31/18 09:59 Dose: 1 larisa Documented by: [id number] Metoprolol Tartrate (Lopressor) 25 mg PO TID [facility] Stop: 06/30/18 08:59 Last Admin: 05/31/18 13:28 Dose: 25 mg Documented by: [id number] Admin: 05/31/18 08:07 Dose: 25 mg Documented by: [id number] Miscellaneous (Remove Nicoderm Patch) 1 ea N/A HS [facility] Stop: 06/30/18 00:57 Last Admin: 05/31/18 01:59 Dose: Not Given Documented by: [id number] Nicotine (Nicoderm Cq) 14 mg TD QAM [facility] Stop: 06/30/18 08:59 Last Admin: 05/31/18 08:07 Dose: 14 mg Documented by: [id number] Oseltamivir Phosphate (Tamiflu) 75 mg PO BID [facility] Stop: 06/05/18 08:59 Last Admin: 05/31/18 08:06 Dose: 75 mg Documented by: [id number] Potassium Chloride (Klor-Con M20) 20 meq PO BID [facility] Stop: 06/30/18 08:59 Last Admin: 05/31/18 08:15 Dose: 20 meq Documented by: [id number] Prednisone (Prednisone) 40 mg PO DAILY [facility] Stop: 06/05/18 12:08 Last Admin: 05/31/18 13:27 Dose: 40 mg Documented by: [id number] Zolpidem Tartrate (Ambien) 10 mg PO HS PRN PRN Reason: Sleep Stop: 06/30/18 00:57 Last Admin: 05/31/18 02:06 Dose: 10 mg Documented by: [id number] Discontinued Medications Acetaminophen (Tylenol) 1,000 mg PO NOW STA Stop: 05/30/18 19:31 Last Admin: 05/30/18 19:52 Dose: 1,000 mg Documented by: [id number] Albuterol (Ventolin 0.083% 2.5mg/3ml) 2.5 mg NEB NOW STA Stop: 05/30/18 19:31 Last Admin: 05/30/18 19:52 Dose: 2.5 mg Documented by: [id number] Escitalopram Oxalate (Lexapro) 10 mg PO 0058 [facility] Stop: 05/31/18 02:30 Last Admin: 05/31/18 02:27 Dose: 10 mg Documented by: [id number] Folic Acid (Folvite) 3 mg PO NOW ONE Stop: 05/31/18 00:59 Last Admin: 05/31/18 01:59 Dose: 3 mg Documented by: [id number] Gabapentin (Neurontin) 600 mg PO NOW ONE Stop: 05/31/18 00:59 Last Admin: 05/31/18 01:58 Dose: 600 mg Documented by: [id number] Sodium Chloride (Nss 1000ml) 1,000 mls @ 999 mls/hr IV .Q1H1M ONE Stop: 05/30/18 20:30 Last Infusion: 05/30/18 21:06 Dose: 0 mls/hr Documented by: [id number] Admin: 05/30/18 19:52 Dose: 999 mls/hr Documented by: [id number] Methylprednisolone 20 mg/ (Syringe) 0.32 mls @ 1.5 mls/min IV Q8H [facility] Stop: 06/30/18 09:59 Last Admin: 05/31/18 10:00 Dose: 1.5 mls/min Documented by: [id number] Methylprednisolone 40 mg/ (Syringe) 0.64 mls @ 1.5 mls/min IV [id number] [facility] Stop: 05/31/18 01:46 Last Admin: 05/31/18 01:58 Dose: 1.5 mls/min Documented by: [id number] Ibuprofen (Motrin) 800 mg PO NOW STA Stop: 05/30/18 19:31 Last Admin: 05/30/18 19:52 Dose: 800 mg Documented by: [id number] Oseltamivir Phosphate (Tamiflu) 75 mg PO NOW ONE Stop: 05/31/18 00:59 Last Admin: 05/31/18 01:58 Dose: 75 mg Documented by: [id number] Medical Decision Making Medical Records Attestation: I reviewed the patient's medical records. Home Medications Current Medication List: was personally reviewed by me Laboratory Data Attestation: I reviewed the patient's lab results. Result diagrams: 05/31/18 05:04 05/31/18 05:04 Lab Results 05/30/18 05/30/18 05/30/18 Range/Units 19:35 19:35 19:35 WBC 8.29 (4.8-10.8) K/uL RBC 5.45 H (4.2-5.4) M/uL Hgb 17.2 H (12.0-16.0) g/dL Hct 47.9 H (37-47) % MCV 87.9 (80-100) fL MCH 31.6 (25-34) pg MCHC 35.9 (32-36) g/dL RDW Std Deviation 44.2 (36.4-46.3) fL RDW Coeff of Chidi 13.7 (11.5-14.5) % Plt Count 134 (130-400) K/uL MPV 10.8 H (7.4-10.4) fL Immature Gran % (Auto) 0.2 % Neut % (Auto) 70.6 % Lymph % (Auto) 17.2 % Milam % (Auto) 11.8 % Eos % (Auto) 0.1 % Baso % (Auto) 0.1 % Immature Gran # (Auto) 0.02 (0.00-0.02) K/uL Neut # (Auto) 5.84 (1.4-6.5) K/uL Lymph # (Auto) 1.43 (1.2-3.4) K/uL Milam # (Auto) 0.98 H (0.11-0.59) K/uL Eos # (Auto) 0.01 (0-0.5) K/uL Baso # (Auto) 0.01 (0-0.2) K/uL Sodium 135 L (136-145) mmol/L Potassium 3.7 (3.5-5.1) mmol/L Chloride 100 (98-107) mmol/L Carbon Dioxide 29 (21-32) mmol/L Anion Gap 6.0 (3-11) BUN 11 (7-18) mg/dl Creatinine 0.84 (0.6-1.2) mg/dl Est Cr Clr Drug Dosing 77.6 ml/min Est GFR ( Amer) 93.3 Est GFR (Non-Af Amer) 80.5 BUN/Creatinine Ratio 13.2 (10-20) Glucose 119 H (70-99) mg/dl POC Glucose (70-99) Estimat Average Glucose mg/dl Hemoglobin A1c (4.5-5.6) % Lactate 1.9 (0.4-2.0) mmol/L Calcium 9.1 (8.5-10.1) mg/dl Total Bilirubin 0.5 (0.2-1) mg/dl AST 71 H (15-37) U/L ALT 65 (12-78) U/L Alkaline Phosphatase 79 (45-117) U/L Total Protein 8.1 (6.4-8.2) gm/dl Albumin 4.0 (3.4-5.0) gm/dl Globulin 4.1 H (2.5-4.0) gm/dl Albumin/Globulin Ratio 1.0 (0.9-2) Urine Color Urine Appearance (Clear) Urine pH (4.5-7.5) Ur Specific [place] (1.000-1.030) Urine Protein (Negative) Urine Glucose (UA) (Negative) Urine Ketones (Negative) Urine Blood (Negative) Urine Nitrite (Negative) Urine Bilirubin (Negative) Urine Urobilinogen (Negative) Ur Leukocyte Esterase (Negative) Influenza Type A (PCR) (Neg) Influenza Type B (PCR) (Neg) 05/30/18 05/31/18 05/31/18 Range/Units 19:42 03:30 05:04 WBC 7.60 (4.8-10.8) K/uL RBC 5.03 (4.2-5.4) M/uL Hgb 15.3 (12.0-16.0) g/dL Hct 44.3 (37-47) % MCV 88.1 (80-100) fL MCH 30.4 (25-34) pg MCHC 34.5 (32-36) g/dL RDW Std Deviation 44.4 (36.4-46.3) fL RDW Coeff of Chidi 13.7 (11.5-14.5) % Plt Count 124 L (130-400) K/uL MPV 10.2 (7.4-10.4) fL Immature Gran % (Auto) % Neut % (Auto) % Lymph % (Auto) % [place] % (Auto) % Eos % (Auto) % Baso % (Auto) % Immature Gran # (Auto) (0.00-0.02) K/uL Neut # (Auto) (1.4-6.5) K/uL Lymph # (Auto) (1.2-3.4) K/uL Milam # (Auto) (0.11-0.59) K/uL Eos # (Auto) (0-0.5) K/uL Baso # (Auto) (0-0.2) K/uL Sodium (136-145) mmol/L Potassium (3.5-5.1) mmol/L Chloride (98-107) mmol/L Carbon Dioxide (21-32) mmol/L Anion Gap (3-11) BUN (7-18) mg/dl Creatinine (0.6-1.2) mg/dl Est Cr Clr Drug Dosing ml/min Est GFR ( Amer) Est GFR (Non-Af Amer) BUN/Creatinine Ratio (10-20) Glucose (70-99) mg/dl POC Glucose (70-99) Estimat Average Glucose mg/dl Hemoglobin A1c (4.5-5.6) % Lactate (0.4-2.0) mmol/L Calcium (8.5-10.1) mg/dl Total Bilirubin (0.2-1) mg/dl AST (15-37) U/L ALT (12-78) U/L Alkaline Phosphatase (45-117) U/L Total Protein (6.4-8.2) gm/dl Albumin (3.4-5.0) gm/dl Globulin (2.5-4.0) gm/dl Albumin/Globulin Ratio (0.9-2) Urine Color Yellow Urine Appearance Clear (Clear) Urine pH 5.5 (4.5-7.5) Ur Specific [place] 1.013 (1.000-1.030) Urine Protein Negative (Negative) Urine Glucose (UA) Negative (Negative) Urine Ketones Negative (Negative) Urine Blood Negative (Negative) Urine Nitrite Negative (Negative) Urine Bilirubin Negative (Negative) Urine Urobilinogen Negative (Negative) Ur Leukocyte Esterase Negative (Negative) Influenza Type A (PCR) Pos for Influ A A* (Neg) Influenza Type B (PCR) Neg for Influ B (Neg) 05/31/18 05/31/18 05/31/18 Range/Units 05:04 05:04 07:00 WBC (4.8-10.8) K/uL RBC (4.2-5.4) M/uL Hgb (12.0-16.0) g/dL Hct (37-47) % MCV (80-100) fL MCH (25-34) pg MCHC (32-36) g/dL RDW Std Deviation (36.4-46.3) fL RDW Coeff of Chidi (11.5-14.5) % Plt Count (130-400) K/uL MPV (7.4-10.4) fL Immature Gran % (Auto) % Neut % (Auto) % Lymph % (Auto) % [place] % (Auto) % Eos % (Auto) % Baso % (Auto) % Immature Gran # (Auto) (0.00-0.02) K/uL Neut # (Auto) (1.4-6.5) K/uL Lymph # (Auto) (1.2-3.4) K/uL [place] # (Auto) (0.11-0.59) K/uL Eos # (Auto) (0-0.5) K/uL Baso # (Auto) (0-0.2) K/uL Sodium 139 (136-145) mmol/L Potassium 3.4 L (3.5-5.1) mmol/L Chloride 106 (98-107) mmol/L Carbon Dioxide 26 (21-32) mmol/L Anion Gap 7.0 (3-11) BUN 11 (7-18) mg/dl Creatinine 0.73 (0.6-1.2) mg/dl Est Cr Clr Drug Dosing 89.5 ml/min Est GFR ( Amer) 110.5 Est GFR (Non-Af Amer) 95.4 BUN/Creatinine Ratio 14.7 (10-20) Glucose 194 H (70-99) mg/dl POC Glucose 231 H (70-99) Estimat Average Glucose 169 mg/dl Hemoglobin A1c 7.5 H (4.5-5.6) % Lactate (0.4-2.0) mmol/L Calcium 8.7 (8.5-10.1) mg/dl Total Bilirubin (0.2-1) mg/dl AST (15-37) U/L ALT (12-78) U/L Alkaline Phosphatase (45-117) U/L Total Protein (6.4-8.2) gm/dl Albumin (3.4-5.0) gm/dl Globulin (2.5-4.0) gm/dl Albumin/Globulin Ratio (0.9-2) Urine Color Urine Appearance (Clear) Urine pH (4.5-7.5) Ur Specific [place] (1.000-1.030) Urine Protein (Negative) Urine Glucose (UA) (Negative) Urine Ketones (Negative) Urine Blood (Negative) Urine Nitrite (Negative) Urine Bilirubin (Negative) Urine Urobilinogen (Negative) Ur Leukocyte Esterase (Negative) Influenza Type A (PCR) (Neg) Influenza Type B (PCR) (Neg) 05/31/18 05/31/18 05/31/18 Range/Units 11:26 16:05 20:10 WBC (4.8-10.8) K/uL RBC (4.2-5.4) M/uL Hgb (12.0-16.0) g/dL Hct (37-47) % MCV (80-100) fL MCH (25-34) pg MCHC (32-36) g/dL RDW Std Deviation (36.4-46.3) fL RDW Coeff of Chidi (11.5-14.5) % Plt Count (130-400) K/uL MPV (7.4-10.4) fL Immature Gran % (Auto) % Neut % (Auto) % Lymph % (Auto) % [place] % (Auto) % Eos % (Auto) % Baso % (Auto) % Immature Gran # (Auto) (0.00-0.02) K/uL Neut # (Auto) (1.4-6.5) K/uL Lymph # (Auto) (1.2-3.4) K/uL [place] # (Auto) (0.11-0.59) K/uL Eos # (Auto) (0-0.5) K/uL Baso # (Auto) (0-0.2) K/uL Sodium (136-145) mmol/L Potassium (3.5-5.1) mmol/L Chloride (98-107) mmol/L Carbon Dioxide (21-32) mmol/L Anion Gap (3-11) BUN (7-18) mg/dl Creatinine (0.6-1.2) mg/dl Est Cr Clr Drug Dosing ml/min Est GFR ( Amer) Est GFR (Non-Af Amer) BUN/Creatinine Ratio (10-20) Glucose (70-99) mg/dl POC Glucose 190 H 270 H 211 H (70-99) Estimat Average Glucose mg/dl Hemoglobin A1c (4.5-5.6) % Lactate (0.4-2.0) mmol/L Calcium (8.5-10.1) mg/dl Total Bilirubin (0.2-1) mg/dl AST (15-37) U/L ALT (12-78) U/L Alkaline Phosphatase (45-117) U/L Total Protein (6.4-8.2) gm/dl Albumin (3.4-5.0) gm/dl Globulin (2.5-4.0) gm/dl Albumin/Globulin Ratio (0.9-2) Urine Color Urine Appearance (Clear) Urine pH (4.5-7.5) Ur Specific [place] (1.000-1.030) Urine Protein (Negative) Urine Glucose (UA) (Negative) Urine Ketones (Negative) Urine Blood (Negative) Urine Nitrite (Negative) Urine Bilirubin (Negative) Urine Urobilinogen (Negative) Ur Leukocyte Esterase (Negative) Influenza Type A (PCR) (Neg) Influenza Type B (PCR) (Neg) Imaging Data Attestation: I personally reviewed and interpreted this imaging study as follows: Radiologist's Impression: Chest x-ray XR chest 2V routine CLINICAL HISTORY: Shortness of breath. CT of the abdomen and pelvis with IV contrast IMPRESSION: 1. There is no evidence of solid organ injury in the abdomen or pelvis. 2. Hepatomegaly and severe hepatic steatosis. 3. Although decompressed the bladder wall appears circumferentially thickened. Correlation with clinical findings and urinalysis will be required. 4. Additional findings as above. Electronically signed by: Alban Hathaway M.D. 05/30/2018 9:[address] of the head without contrast IMPRESSION: No acute intracranial abnormality. Electronically signed by: Alban Hathaway M.D. 05/30/2018 9:36 PM Dictated: 05/30/182133 CT of the cervical spine without contrast IMPRESSION: There is no evidence of fracture or subluxation involving the cervical spine. Electronically signed by: Alban Hathaway M.D. 05/30/2018 9:39 PM Dictated: 05/30/182135 Transcribed: 05/30/182135 Dictated: 05/30/181819 Transcribed: 05/30/181819 CT of the cervical spine without contrast CT of the head without contrast CT of the abdomen and pelvis with IV contrast ECG Data Indication: syncope and other Rate (beats per minute): 95 Rhythm: normal sinus Findings: + prolonged QT Change: no significant change (06/2017) Blood Pressure Blood Pressure Findings: Normal blood pressure MDM Narrative Differential diagnosis: Bronchitis, pneumonia, viral syndrome such as influenza, pulmonary embolus, pneumothorax, other viral syndrome, cardiac arrhythmia, traumatic injury, among others This patient is a 52-year-old female who presents to the emergency department with complaints of flulike symptoms and shortness of breath. She also had a syncopal episode. On exam, she was hypoxic. She did not have significant audible wheezing on exam. Her workup here reveals a positive influenza A. Chest x-ray is negative. Unfortunately, the patient remained hypoxic on room air, which is new. For this reason, it was felt that hospitalist consultation was appropriate. Regarding the syncopal episode, this was associated with a coughing spell. It is possible that she had a vasovagal episode. It is also possible that the hypoxia was playing a role. Her EKG did not show any signs of ischemia or infarction. She denied any chest pain. I did not suspect [place]. Imaging was negative for any acute trauma. The patient will be evaluated for possible inpatient treatment secondary to acute respiratory failure-influenza Impression & Plan Influenza A Discharge Plan Visit Data *Final* Discharge Date/Time: 05/31/18 00:39 Chief Complaint: Flu Like Symptoms Stated Complaint: FLU ED Provider: Gordo Kimble ED Midlevel Provider: Michelle Alfaro Discharge Problem: Influenza A Patient Disposition: Admitted As Inpatient Discharge Instructions Interventions: ED Discharge Assessment Last Done: 05/31/18 00:39
[2018-05-30 20:34] LABS: Influenza B virus by PCR Neg for Influ B (Neg)
[2018-05-30] MEDS ORDERED: IOVERSOL 100ml IV PRN (21:36)
--- NOTE | 2018-05-30 21:39 | CT Scan Report ---
CT SCAN OF THE BRAIN WITHOUT IV CONTRAST CLINICAL HISTORY: Fall. COMPARISON STUDY: CT of the brain dated 11/09/2011. TECHNIQUE: Unenhanced axial CT scan of the brain is performed from the vertex to the skull base. A d ose lowering technique was utilized adhering to the principles of ALARA. FINDINGS: Brain parenchyma: The brain parenchyma is normal in appearance. There is no hemorrhage, mass effect, or evidence of acute territorial ischemia by CT criteria. Carey-white matter differentiation is preser tonny. No extra-axial fluid collection is seen. Ventricles, sulci, cisterns: Normal in configuration. Intracranial vasculature: There is atherosclerotic calcification of the cavernous carotid arteries. Calvarium: There is no depressed calvarial fracture. Sinuses and mastoids: The visualized paranasal sinuses are clear. The mastoid air cells are well pneu matized. Orbits: The bony orbits are grossly intact. IMPRESSION: No acute intracranial abnormality. Electronically signed by: Alban Hathaway M.D. 05/30/2018 9:36 PM
--- NOTE | 2018-05-30 21:41 | CT Scan Report ---
CT SCAN OF THE CERVICAL SPINE CLINICAL HISTORY: Fall. COMPARISON STUDY: No priors. TECHNIQUE: CT scan of the cervical spine is performed from the skull base to the upper thoracic spine . Images are reviewed in the axial, sagittal, and coronal planes. IV contrast was not administered fo r this examination. A dose lowering technique was utilized adhering to the principles of ALARA. FINDINGS: Skeletal structures: The skeletal structures are well mineralized. There is no evidence of fracture o r subluxation involving the cervical spine. Vertebral body height and alignment are maintained. There is straightening of the cervical lordosis. Anterior osteophytes are seen throughout. The odontoid p rocess and lateral masses are intact noting productive degenerative change. The atlantoaxial articula tion is preserved. The spinous processes appear intact. Mild multilevel facet arthropathy is observed . Intervertebral discs: Mild to moderate disc space narrowing is seen at C5-C6 and C6-C7. Central canal: Posterior disc osteophyte complexes at C5-C6 and C6-C7 may contribute to acquired comp romise of the central canal. Soft tissues: The prevertebral and paraspinous soft tissues are within normal limits. There is athero sclerotic calcification of the carotid bulbs. Calvarium: The visualized calvarium at the skull base appears intact. Brain parenchyma: Partially visualized brain parenchyma the skull base is within normal limits. Sinuses and mastoids: Trace mucosal thickening is noted within the sphenoid sinuses. The mastoid air cells are well pneumatized. Lung apices: Clear as visualized. IMPRESSION: There is no evidence of fracture or subluxation involving the cervical spine. Electronically signed by: Alban Hathaway M.D. 05/30/2018 9:39 PM
--- NOTE | 2018-05-30 21:51 | CT Scan Report ---
CT SCAN OF THE ABDOMEN AND PELVIS WITH IV CONTRAST CLINICAL HISTORY: Fall. Left flank pain. COMPARISON STUDY: No priors. TECHNIQUE: Following the IV administration of 94 cc of Optiray 320, CT scan of the abdomen and pelvi s is performed from the lung bases to the proximal femora. Images are reviewed in the axial, sagittal , and coronal planes. IV contrast was administered without complication. A dose lowering technique wa s utilized adhering to the principles of ALARA. The examination is modestly degraded by motion artifa ct. CT DOSE: 1687.63 mGy.cm FINDINGS: Lung bases: The heart appears mildly enlarged and is without pericardial effusion. There are coronary artery calcifications. Evaluation of the lung parenchyma is compromised by motion artifact. Emphysem atous change is suspected. No airspace consolidation or pleural effusion is identified. Liver: The contrast-enhanced liver is enlarged, measuring 22.1 cm in length. The liver demonstrates d iffusely diminished attenuation consistent with severe hepatic steatosis. Fatty sparing is seen adjac ent to gallbladder fossa. There is no intrahepatic biliary ductal dilatation. The hepatic veins and p ortal veins are patent. Gallbladder: Unremarkable. Spleen: Normal in size and attenuation. There are scattered calcified splenic granulomas. Pancreas: Unremarkable. Adrenal glands: Unremarkable. Kidneys: The contrast enhanced kidneys are normal in size and without hydronephrosis. The kidneys enh ance symmetrically. Abdominal vasculature: The abdominal aorta is normal in course and caliber noting moderate atheroscle rotic calcification. Bowel: The small bowel and colon are normal in course and caliber. The appendix is well-visualized a nd normal. Peritoneum: There is no intraperitoneal free air or abdominal ascites. Lymphadenopathy: None. Pelvic viscera: Although decompressed the bladder appears circumferentially thick walled. The uterus and adnexa are normal as visualized. Skeletal structures: No lytic or blastic lesions are seen. IMPRESSION: 1. There is no evidence of solid organ injury in the abdomen or pelvis. 2. Hepatomegaly and severe hepatic steatosis. 3. Although decompressed the bladder wall appears circumferentially thickened. Correlation with clini frank findings and urinalysis will be required. 4. Additional findings as above. Electronically signed by: Alban Hathaway M.D. 05/30/2018 9:50 PM
--- NOTE | 2018-05-30 21:59 | XRay Report ---
TWO VIEW CHEST CLINICAL HISTORY: Cough and fever. FINDINGS: PA and lateral chest radiographs are compared to study dated 07/14/2017. Correlation is made with chest CT dated 07/12/[address] performed the same day 05/30/2018. The PA view is degra ded by patient rotation. The heart is enlarged and there is atherosclerotic calcification of the thor acic aorta. The pulmonary vasculature is noncongested. Emphysematous change is suspected. Chronic int erstitial thickening is similar to previous. There are patchy airspace opacities present at the lung bases, left greater than right. This is consistent with atelectasis when correlated with today's abdo tita CT. No pleural effusion or pneumothorax is seen. The skeletal structures are osteopenic. The jimi ny thorax appears intact. IMPRESSION: 1. Cardiomegaly without radiographic evidence of congestive failure. 2. There is no airspace consolidation typical for pneumonia or pleural effusion. Electronically signed by: Alban Hathaway M.D. 05/30/2018 9:58 PM
--- NOTE | 2018-05-30 23:22 | History & Physical Report ---
Date of Service May 30, 2018 Assessment & Plan (1) Influenza A: Confirmed by PCR testing of ELECTROPL[employer]OM[employer] swab. Rx with oseltamivir. (2) COPD (chronic obstructive pulmonary disease): Exacerbation of COPD secondary to influenza. Treat bronchospasm with IV methylprednisolone + nebs. (3) Pulmonary atelectasis: Noted on CXR and CT. Incentive spirometry. (4) Syncope: Probable cough syncope. Monitor for arrhythmias. Check orthostatic vital signs in a.m. (5) Hypertensive heart disease: No CHF. Adjustment of anti-hypertensive meds as discussed below. (6) Hypertension: Systolic BP in ED as low as 98. Change metoprolol from metoprolol succinate 100 mg daily to metoprolol tartrate 25 mg TID during hospital stay for easier titration. Resume metoprolol succinate at time of discharge. Continue lisinopril with hold parameters. (7) Sleep apnea: Continue CPAP. (8) Type 2 diabetes mellitus: Usually well-controlled on oral agents. Check Hgb A1-C. Anticipate high blood sugars due to acute illness and steroid therapy. Hold oral agents during hospital stay. Follow blood sugars. Lantus / NovoLog per protocol. (9) Rheumatoid arthritis: Was due to received sarilumab yesterday, but will need to hold because of influenza. (10) History of ITP: Platelet count 134,000. Follow. (11) Smoking: Smokes 1 PPD. Smoking cessation counseling. Nicotine patch. (12) DVT prophylaxis: Low risk for VTE per IMPROVE risk assessment model, but may be at increased risk due to RA. No anticoagulants because of trauma + hx ITP. SCD's. Ambulate. (13) Discharge planning issues: Anticipated discharge to home. Medical follow-up with Dr. Agrawal. History of Present Illness Chief Complaint: cough, SOB, passed out Primary Care Provider: Raven Jenkins MD 52-year-old female followed by Dr. Agrawal for Internal Medicine. History of hypertensive heart disease, COPD, rheumatoid arthritis, ITP, and other problems. Became ill 2 days prior to admission with fever as high as 103, cough, shortness of breath. Had associated nausea, vomiting, and diarrhea. No hematemesis, melena, hematochezia. No pharyngitis. No sinus congestion. Daughter had similar symptoms. Today she had a severe paroxysm of coughing, lost consciousness, and fell down 6 carpeted steps. She struck the back of her head and has some back and right hip pain, but no significant injuries. Took ibuprofen without much relief. Allergies Allergy/AdvReac Type Severity Reaction Status Date / Time No Known Allergies Allergy Verified 05/30/18 20:51 Home Medications Home Medications Medication Instructions Recorded Confirmed Type albuterol sulfate [Ventolin HFA] 2 puff INHALATION Q4 PRN 05/30/18 05/30/18 History budesonide-formoterol [Symbicort] 2 puff INHALATION BID 05/30/18 05/30/18 History cholecalciferol (vitamin D3) 2,000 unit PO HS 05/30/18 05/30/18 History [Vitamin D3] escitalopram oxalate [Lexapro] 10 mg PO HS 05/30/18 05/30/18 History folic acid 3 mg PO HS 05/30/18 05/30/18 History gabapentin 600 mg PO TID 05/30/18 05/30/18 History lisinopril 5 mg PO HS 05/30/18 05/30/18 History metoprolol succinate 100 mg PO HS 05/30/18 05/30/18 History sarilumab [Kevzara] 1 dose SUBCUT DIRECTED 05/30/18 05/30/18 History sitagliptin-metformin [Janumet XR] 1 tab PO BID 05/30/18 05/30/18 History zolpidem 10 mg PO HS PRN 05/30/18 05/30/18 History Past Med/Surg History Medical History Hypertensive heart disease (Chronic) Hypertension (Chronic) COPD (chronic obstructive pulmonary disease) (Chronic) Rheumatoid arthritis (Chronic) History of ITP (Chronic) Still's disease (Chronic) Type 2 diabetes mellitus (Chronic) Sleep apnea (Chronic) Hypertension Surgical History Status post section (Chronic) Social History Feels Safe at Home: Yes Smoking Status: Current every day smoker Review of Systems Constitutional: + fever; no weight loss Eyes: no diplopia and no worsening vision Ear, Nose, Mouth, Throat: no nasal congestion, no sinus pain/pressure and no sore throat Respiratory: as per Subjective / HPI Cardiovascular: no chest pain and no edema Gastrointestinal: as per Subjective / HPI Genitourinary (Female): no dysuria and no hematuria Musculoskeletal: + joint pain and + myalgia Integumentary: no rash and no new lesions Neurologic: no headache(s) Endocrine: no polydipsia and no polyuria Hematologic / Lymphatic: no easy bleeding, no easy bruising and no lymphadenopathy Physical Exam Vital Signs (Past 24 Hours): Last Vital Signs Temp 37.9 C H 05/30/18 19:08 Pulse 84 05/30/18 22:40 Resp 24 05/30/18 22:40 BP 98/60 L 05/30/18 22:40 Pulse Ox 93 05/30/18 22:40 Constitutional: WD/WN, vitals as above no acute distress Eyes: PERRL, conjunctivae normal, anicteric sclerae ENMT: external ear and nose normal, oropharynx normal Neck: trachea midline, no thyromegaly Respiratory: normal respiratory effort, lungs clear to auscultation Cardiovascular: Rate/Rhythm: regular rate, regular rhythm and + tachycardic Heart Sounds: no gallop, no murmur and no cardiac rub Vessels: no JVD Extremities: no calf tenderness and no edema Gastrointestinal (Abdomen): normal bowel sounds, soft, nontender, no hepatosplenomegaly Musculoskeletal: Head/Neck/Chest: head atraumatic and neck supple Spine: normal cervical ROM and no cervical spinal tenderness Extremities: strength 5/5 throughout; no cyanosis and no clubbing Skin: no rashes, warm and dry Neurologic: PERRL, EOMI no facial palsy no dysarthria or aphasia patellar DTR's 1/2 bilat Psychiatric: Orientation: alert and oriented x 3 Affect: euthymic affect Lymphatic: no cervical lymphadenopathy Results & Data Laboratory Results Laboratory Results - last 24 hr 05/30/18 05/30/18 05/30/18 19:35 19:35 19:35 WBC 8.29 RBC 5.45 H Hgb 17.2 H Hct 47.9 H MCV 87.9 MCH 31.6 MCHC 35.9 RDW Std Deviation 44.2 RDW Coeff of Chidi 13.7 Plt Count 134 MPV 10.8 H Immature Gran % (Auto) 0.2 Neut % (Auto) 70.6 Lymph % (Auto) 17.2 Victoria % (Auto) 11.8 Eos % (Auto) 0.1 Baso % (Auto) 0.1 Immature Gran # (Auto) 0.02 Neut # (Auto) 5.84 Lymph # (Auto) 1.43 Victoria # (Auto) 0.98 H Eos # (Auto) 0.01 Baso # (Auto) 0.01 Sodium 135 L Potassium 3.7 Chloride 100 Carbon Dioxide 29 Anion Gap 6.0 BUN 11 Creatinine 0.84 Est Cr Clr Drug Dosing 77.6 Est GFR ( Amer) 93.3 Est GFR (Non-Af Amer) 80.5 BUN/Creatinine Ratio 13.2 Glucose 119 H Lactate 1.9 Calcium 9.1 Total Bilirubin 0.5 AST 71 H ALT 65 Alkaline Phosphatase 79 Total Protein 8.1 Albumin 4.0 Globulin 4.1 H Albumin/Globulin Ratio 1.0 Influenza Type A (PCR) Influenza Type B (PCR) 05/30/18 19:42 WBC RBC Hgb Hct MCV MCH MCHC RDW Std Deviation RDW Coeff of Chidi Plt Count MPV Immature Gran % (Auto) Neut % (Auto) Lymph % (Auto) Victoria % (Auto) Eos % (Auto) Baso % (Auto) Immature Gran # (Auto) Neut # (Auto) Lymph # (Auto) Victoria # (Auto) Eos # (Auto) Baso # (Auto) Sodium Potassium Chloride Carbon Dioxide Anion Gap BUN Creatinine Est Cr Clr Drug Dosing Est GFR ( Amer) Est GFR (Non-Af Amer) BUN/Creatinine Ratio Glucose Lactate Calcium Total Bilirubin AST ALT Alkaline Phosphatase Total Protein Albumin Globulin Albumin/Globulin Ratio Influenza Type A (PCR) Pos for Influ A A* Influenza Type B (PCR) Neg for Influ B Diagnostic Findings PORTABLE CHEST X-RAY IMPRESSION: 1. Cardiomegaly without radiographic evidence of congestive failure. 2. There is no airspace consolidation typical for pneumonia or pleural effusion. Electronically signed by: Alban Hathaway M.D. 05/30/2018 9:[address] HEAD IMPRESSION: No acute intracranial abnormality. Electronically signed by: Alban Hathaway M.D. 05/30/2018 9:[address] CERVICAL SPINE IMPRESSION: There is no evidence of fracture or subluxation involving the cervical spine. Electronically signed by: Alban Hathaway M.D. 05/30/2018 9:[address] ABD + PELVIS IMPRESSION: 1. There is no evidence of solid organ injury in the abdomen or pelvis. 2. Hepatomegaly and severe hepatic steatosis. 3. Although decompressed the bladder wall appears circumferentially thickened. Correlation with clinical findings and urinalysis will be required. 4. Additional findings as above. Electronically signed by: Alban Hathaway M.D. 05/30/2018 9:50 PM ECG Additional Comments: EKG performed at 1940 reviewed and demonstrated NSR at 95 / min, baseline artrifact, T-wave flattening III, aVL, aVF.
[2018-05-31] MEDS ORDERED: ACETAMINOPHEN 325 MG TAB PO PRN (00:58)
[2018-05-31] MEDS ORDERED: OXYCODONE HCL IR 5 MG TAB (IMMEDIATE RELEASE) PO PRN (00:58)
[2018-05-31] MEDS ORDERED: FOLIC ACID 1 MG TAB PO ONE (00:58)
[2018-05-31] MEDS ORDERED: ESCITALOPRAM OXALATE ORAL SOLN 10 MG/10 ML UDP PO ONE (00:58)
[2018-05-31] MEDS ORDERED: ESCITALOPRAM OXALATE 10 MG TAB PO SCH ×2 (00:58→21:00)
[2018-05-31] MEDS ORDERED: ONDANSETRON INJ 2 MG/ML 2 ML VIAL IV PRN (00:58)
[2018-05-31] MEDS ORDERED: LEVALBUTEROL HCL 0.63 MG/3 ML NEB NEB PRN (00:58)
[2018-05-31] MEDS ORDERED: OSELTAMIVIR PHOSPHATE 75 MG CAP PO ONE (00:58)
[2018-05-31] MEDS ORDERED: GABAPENTIN 600 MG TAB PO ONE (00:58)
[2018-05-31] MEDS ORDERED: GLUCOSE 40% GEL 15 GM TUBE PO PRN (01:45)
[2018-05-31] MEDS ORDERED: GLUCAGON FOR INJ 1 MG VIAL IM PRN (01:45)
[2018-05-31] MEDS ORDERED: methylPREDNISolone 40 MG in SYRINGE 0 ML IV SCH (01:45)
[2018-05-31] MEDS ORDERED: DEXTROSE 50% 50 ML SYRINGE IV PRN (01:45)
[2018-05-31] MEDS ORDERED: GLUCOSE 10 TABS/TUBE PO PRN (01:45)
[2018-05-31] MEDS ORDERED: CARBOHYDRATES FOR HYPOGLYCEMIA PO PRN (01:45)
[2018-05-31] MEDS: BUDESONIDE/FORMOTEROL FUMARATE 160/4.5 60 PUFFS/INHALER INH SCH ×3 (01:58→21:30)
[2018-05-31] MEDS ORDERED: XOPENEX/ATROVENT 1.25mg/0.5MG NEB COMBO NEB SCH (02:00)
[2018-05-31] MEDS: ZOLPIDEM TARTRATE 10 MG TAB PO PRN ×2 (02:06→21:37)
[2018-05-31] MEDS: LACTATED RINGER'S 1,000 ML IV SCH ×3 (02:27→17:41)
[2018-05-31] MEDS: LEVALBUTEROL 1.25MG/0.5ML NEB INH SCH ×4 (03:09→20:20)
[2018-05-31] MEDS: IPRATROPIUM BROMIDE NEB SOLN 0.02% 2.5 ML VIAL INH SCH ×4 (03:10→20:18)
[2018-05-31 03:46] LABS: Appearance Urine Clear (Clear); Bilirubin Urine Negative (Negative); Color Urine Yellow; Glucose Urine UA Negative (Negative); Ketones Urine Negative (Negative); Leukocyte Esterase Urine Negative (Negative); Nitrite Urine Negative (Negative); Protein Urine Negative (Negative); Specific Gravity Urine 1.013 (1.000-1.030); Urobilinogen Urine Negative (Negative); pH Urine 5.5 (4.5-7.5)
[2018-05-31 05:47] LABS: Hematocrit (blood only) 44.3 % (37-47); Hemoglobin 15.3 g/dL (12.0-16.0); Mean Corpuscular Hemoglobin 30.4 pg (25-34); Mean Corpuscular Hgb Conc 34.5 g/dL (32-36); Mean Corpuscular Volume 88.1 fL (80-100); Mean Platelet Volume 10.2 fL (7.4-10.4); Platelet Count 124 K/uL (130-400); RDW Coefficient of Variation 13.7 % (11.5-14.5); RDW Standard Deviation 44.4 fL (36.4-46.3); Red Blood Count 5.03 M/uL (4.2-5.4)
[2018-05-31 06:20] LABS: BUN Creatinine Ratio 14.7 (10-20); Calcium 8.7 mg/dl (8.5-10.1); Creatinine Clr Calc Pharmacy 89.5 ml/min; Est GFR (African American) 110.5; Est GFR (Non-African American) 95.4; Potassium 3.4 mmol/L (3.5-5.1)
[2018-05-31 06:49] LABS: Estimated Average Glucose 169 mg/dl
[2018-05-31] MEDS: INSULIN ASPART 100 UNITS/ML 3 ML PEN SC SCH ×4 (08:05→21:21)
[2018-05-31] MEDS: OSELTAMIVIR PHOSPHATE 75 MG CAP PO SCH ×2 (08:06→21:29)
[2018-05-31] MEDS: INSULIN GLARGINE SOLOSTAR 100 UNITS/ML 3 ML PEN SC SCH ×2 (08:06→21:22)
[2018-05-31] MEDS: GABAPENTIN 600 MG TAB PO SCH ×3 (08:07→21:28)
[2018-05-31] MEDS: METOPROLOL TARTRATE 25 MG TAB PO SCH ×3 (08:07→21:28)
[2018-05-31] MEDS: NICOTINE 14 MG/24 HR PATCH TD SCH (08:07)
[2018-05-31] MEDS: POTASSIUM CHLORIDE 20 MEQ TABCR PO SCH ×2 (08:15→21:27)
[2018-05-31] MEDS ORDERED: NURSING DECISION MEDICATION ONE (08:55)
[2018-05-31] MEDS ORDERED: COUGH DROP (SUGAR FREE) LOZ 24 LOZ/1 BOX BUCCAL PRN (09:23)
[2018-05-31] MEDS ORDERED: methylPREDNISolone 20 MG in SYRINGE 0 ML IV SCH (10:00)
--- NOTE | 2018-05-31 11:37 | Hospitalist Progress Note ---
Date of Service May 31, 2018 Assessment & Plan (1) Influenza A: Tamiflu (2) COPD (chronic obstructive pulmonary disease): Admitting provider felt she was having exacerbation of COPD secondary to influenza. There is no wheezing on exam today. She is still requiring a small amount of oxygen supplementation. We discussed if she is reliably off the oxygen not requiring oxygen supplementation with ambulation that she can go today or tomorrow. Continue Tamiflu as above. No evidence of secondary bacterial infection at this time. She is remained afebrile overnight. Will continue overt IV Solu-Medrol to p.o. prednisone and continue this for minimum 5 days as outpatient. Continue scheduled nebs for now. (3) Syncope: Syncope likely posttussive versus related to orthostatic hypotension in the setting of severe illness, however, she has a history of echocardiogram in January 2018 revealing left ventricular outflow tract that is narrowed but not obstructive. Will repeat echo at this time to ensure nothing has progressed. (4) Hypertension: At goal, continue lisinopril per home regimen (5) Sleep apnea: Continue CPAP qHS (6) Type 2 diabetes mellitus: At goal, continue the Lantus NovoLog per protocol (7) Rheumatoid arthritis: Was due to received sarilumab yesterday, but will need to hold because of influenza. Not taking chronic steroids. (8) History of ITP: Platelet count 134-124 in setting of infection (9) Smoking: Smokes 1 PPD. Smoking cessation counseling. Nicotine patch. (10) DVT prophylaxis: Low risk for VTE per IMPROVE risk assessment model, but may be at increased risk due to RA. No anticoagulants because of trauma + hx ITP. SCD's. Ambulate. Full Code Dispo-to home when reliably off oxygen with ambulation and feeling well. Fawn Gottlieb DO [facility] Hospitalist Subjective Flulike symptoms prior to arrival, feels somewhat improved today. Denies frequent COPD exacerbations at home prior to this. Sick contact including daughter who had flu. Denies any GI upset today, tolerating food. She is still on a minimal amount of oxygen supplementation. We discussed that if she is reliably off oxygen supplementation, able to maintain normal saturations for me is then we can discuss her discharge to home. She denies fevers or chills but was 37.9C T-max overnight around 7 PM. Physical Exam Vital Signs (Past 24 Hours): Last Vital Signs Temp 37 C 05/31/18 07:50 Pulse 82 05/31/18 07:50 Resp 18 05/31/18 07:50 BP 129/75 05/31/18 07:50 Pulse Ox 94 05/31/18 07:50 CONSTITUTIONAL: WNWD, vitals as above, generally well-appearing EYES: normal conjuctivae, no scleral icterus ENT: MMM RESPIRATORY: clear to auscultation bilaterally, no crackles, rales or wheezes, normal respiratory effort CARDIOVASCULAR: regular rate and rhythm, S1 and 2 heard without murmurs, gallops or rubs, no JVD, no peripheral edema GASTROINTESTINAL: normal bowel sounds, soft, nontender, nondistended MUSCULOSKELETAL: strength 5/5 throughout, head is normocephalic and atraumatic SKIN: warm and dry NEUROLOGIC: CN 2-12 grossly intact, no sensory deficit, normal cognition, normal speech, no gross focal deficits PSYCHIATRIC: alert cooperative and oriented to person, place and time. Results & Data Laboratory Results Short CBC 05/30/18 05/31/18 Range/Units 19:35 05:04 WBC 8.29 7.60 (4.8-10.8) K/uL Hgb 17.2 H 15.3 (12.0-16.0) g/dL Hct 47.9 H 44.3 (37-47) % Plt Count 134 124 L (130-400) K/uL BMP 05/30/18 05/31/18 19:35 05:04 Sodium 135 L 139 Potassium 3.7 3.4 L Chloride 100 106 Carbon Dioxide 29 26 BUN 11 11 Creatinine 0.84 0.73 Glucose 119 H 194 H Calcium 9.1 8.7 Liver Function 05/30/18 Range/Units 19:35 Total Bilirubin 0.5 (0.2-1) mg/dl AST 71 H (15-37) U/L ALT 65 (12-78) U/L Alkaline Phosphatase 79 (45-117) U/L Albumin 4.0 (3.4-5.0) gm/dl Urine 05/31/18 Range/Units 03:30 Urine Color Yellow Urine Appearance Clear (Clear) Urine pH 5.5 (4.5-7.5) Ur Specific Philip 1.013 (1.000-1.030) Urine Protein Negative (Negative) Urine Glucose (UA) Negative (Negative) Medications Administered Current Inpatient Medications Acetaminophen (Tylenol) 650 mg PO Q4H PRN PRN Reason: pain/fever Stop: 06/30/18 00:57 Budesonide/Formoterol Fumarate (Symbicort 160mcg/4.5mcg) 2 puffs INH BID [facility] Stop: 06/30/18 00:57 Last Admin: 05/31/18 08:06 Dose: 2 puffs Documented by: Dextrose (Dextrose 50%) 25 - 50 ml IV UD PRN; Protocol PRN Reason: Hypoglycemia Protocol Stop: 06/30/18 01:44 Escitalopram Oxalate (Lexapro) 10 mg PO HS [facility] Stop: 06/30/18 20:59 Folic Acid (Folvite) 3 mg PO HS [facility] Stop: 06/30/18 20:59 Gabapentin (Neurontin) 600 mg PO TID [facility] Stop: 06/30/18 08:59 Last Admin: 05/31/18 08:07 Dose: 600 mg Documented by: Glucagon (Glucagen) 1 mg IM UD PRN; Protocol PRN Reason: Hypoglycemia Protocol Stop: 06/30/18 01:44 Glucose (Glucose 40%) 15 - 30 gm PO UD PRN; Protocol PRN Reason: Hypoglycemia Protocol Stop: 06/30/18 01:44 Glucose (Dex4 Glucose) 4 - 8 tabs PO UD PRN; Protocol PRN Reason: Hypoglycemia Protocol Stop: 06/30/18 01:44 Lactated Ringer's (Lr) 1,000 mls @ 125 mls/hr IV .Q8H [facility] Stop: 06/30/18 00:57 Last Admin: 05/31/18 09:59 Dose: 125 mls/hr Documented by: Methylprednisolone 20 mg/ (Syringe) 0.32 mls @ 1.5 mls/min IV Q8H [facility] Stop: 06/30/18 09:59 Last Admin: 05/31/18 10:00 Dose: 1.5 mls/min Documented by: Insulin Aspart (Novolog Flexpen) 0 units SC ACHS [facility] Stop: 06/30/18 07:29 Last Admin: 05/31/18 08:05 Dose: 7 units Documented by: Insulin Glargine (Lantus Solostar Pen) 0 units SC BID [facility]; Protocol Stop: 06/30/18 08:59 Last Admin: 05/31/18 08:06 Dose: 10 units Documented by: Ioversol (Optiray 320 100ml) 94 ml IV ONCE PRN PRN Reason: Interaction Checking Stop: 06/03/18 21:35 Last Admin: 05/30/18 21:36 Dose: 94 ml Documented by: Ipratropium [place] (Atrovent 0.02% 0.5mg/2.5ml) 0.5 mg INH Q6R [facility] Stop: 06/30/18 01:59 Last Admin: 05/31/18 07:04 Dose: 0.5 mg Documented by: Levalbuterol HCl (Xopenex 1.25mg/0.5ml Neb) 1.25 mg INH Q6R [facility] Stop: 06/30/18 01:59 Last Admin: 05/31/18 07:04 Dose: 1.25 mg Documented by: Levalbuterol HCl (Xopenex 0.63 Mg/3 Ml Neb) 0.63 mg NEB Q3H PRN PRN Reason: Wheezing Stop: 06/30/18 00:57 Lisinopril (Zestril) 5 mg PO [facility] Stop: 06/30/18 20:59 Menthol (Nice) 1 larisa BUCCAL PRN PRN PRN Reason: Cough Stop: 06/30/18 09:22 Last Admin: 05/31/18 09:59 Dose: 1 larisa Documented by: Metoprolol Tartrate (Lopressor) 25 mg PO TID [facility] Stop: 06/30/18 08:59 Last Admin: 05/31/18 08:07 Dose: 25 mg Documented by: Miscellaneous (Remove Nicoderm Patch) 1 ea N/A [facility] Stop: 06/30/18 00:57 Last Admin: 05/31/18 01:59 Dose: Not Given Documented by: Miscellaneous (Carbohydrates For Hypoglycemia) 15 - 30 gm PO UD PRN PRN Reason: Hypoglycemia Treatment Stop: 06/30/18 01:44 Nicotine (Nicoderm Cq) 14 mg TD QAM [facility] Stop: 06/30/18 08:59 Last Admin: 05/31/18 08:07 Dose: 14 mg Documented by: Ondansetron HCl (Zofran) 4 mg IV Q6H PRN PRN Reason: Nausea Stop: 06/30/18 00:57 Oseltamivir Phosphate (Tamiflu) 75 mg PO BID [facility] Stop: 06/05/18 08:59 Last Admin: 05/31/18 08:06 Dose: 75 mg Documented by: Oxycodone HCl (Roxicodone Immediate Rel) 5 mg PO Q4H PRN PRN Reason: Severe Pain Stop: 06/14/18 00:57 Potassium Chloride (Klor-Con M20) 20 meq PO BID [facility] Stop: 06/30/18 08:59 Last Admin: 05/31/18 08:15 Dose: 20 meq Documented by: Vitamin D (Vitamin D3) 2,000 units PO HS [facility] Stop: 06/30/18 20:59 Zolpidem Tartrate (Ambien) 10 mg PO HS PRN PRN Reason: Sleep Stop: 06/30/18 00:57 Last Admin: 05/31/18 02:06 Dose: 10 mg Documented by:
[2018-05-31] MEDS: predniSONE 20 MG TAB PO SCH (13:27)
[2018-05-31] MEDS ORDERED: CHOLECALCIFEROL 1,000 UNITS TAB PO SCH (21:00)
[2018-05-31] MEDS ORDERED: LISINOPRIL 5 MG TAB PO SCH (21:00)
[2018-05-31] MEDS ORDERED: FOLIC ACID 1 MG TAB PO SCH (21:00)
[2018-06-01] MEDS: LACTATED RINGER'S 1,000 ML IV SCH ×2 (01:36→08:39)
[2018-06-01] MEDS: IPRATROPIUM BROMIDE NEB SOLN 0.02% 2.5 ML VIAL INH SCH ×3 (01:47→13:54)
[2018-06-01] MEDS: LEVALBUTEROL 1.25MG/0.5ML NEB INH SCH ×3 (01:47→13:54)
[2018-06-01 06:13] LABS: Hematocrit (blood only) 41.7 % (37-47); Hemoglobin 14.2 g/dL (12.0-16.0); Mean Corpuscular Hemoglobin 30.1 pg (25-34); Mean Corpuscular Hgb Conc 34.1 g/dL (32-36); Mean Corpuscular Volume 88.5 fL (80-100); Mean Platelet Volume 11.1 fL (7.4-10.4); Platelet Count 146 K/uL (130-400); RDW Coefficient of Variation 13.4 % (11.5-14.5); RDW Standard Deviation 43.4 fL (36.4-46.3); Red Blood Count 4.71 M/uL (4.2-5.4); White Blood Count 5.82 K/uL (4.8-10.8)
[2018-06-01 06:46] LABS: BUN Creatinine Ratio 14.5 (10-20); Calcium 8.5 mg/dl (8.5-10.1); Creatinine Clr Calc Pharmacy 103.7 ml/min; Est GFR (African American) 120.4; Est GFR (Non-African American) 103.9; Potassium 3.5 mmol/L (3.5-5.1)
[2018-06-01] MEDS: POTASSIUM CHLORIDE 20 MEQ TABCR PO SCH (08:44)
[2018-06-01] MEDS: predniSONE 20 MG TAB PO SCH (08:44)
[2018-06-01] MEDS: METOPROLOL TARTRATE 25 MG TAB PO SCH ×2 (08:44→13:38)
[2018-06-01] MEDS: GABAPENTIN 600 MG TAB PO SCH ×2 (08:45→13:39)
[2018-06-01] MEDS: OSELTAMIVIR PHOSPHATE 75 MG CAP PO SCH (08:45)
[2018-06-01] MEDS: INSULIN GLARGINE SOLOSTAR 100 UNITS/ML 3 ML PEN SC SCH (08:45)
[2018-06-01] MEDS: INSULIN ASPART 100 UNITS/ML 3 ML PEN SC SCH ×2 (08:48→12:20)
[2018-06-01] MEDS: NICOTINE 14 MG/24 HR PATCH TD SCH (08:49)
[2018-06-01] MEDS: BUDESONIDE/FORMOTEROL FUMARATE 160/4.5 60 PUFFS/INHALER INH SCH (08:50)
--- NOTE | 2018-06-01 12:27 | Discharge Summary ---
Date of Service June 01, 2018 Admission HPI Per Admitting Provider 52-year-old female followed by Dr. Agrawal for Internal Medicine. History of hypertensive heart disease, COPD, rheumatoid arthritis, ITP, and other problems. Became ill 2 days prior to admission with fever as high as 103, cough, shortness of breath. Had associated nausea, vomiting, and diarrhea. No hematemesis, melena, hematochezia. No pharyngitis. No sinus congestion. Daughter had similar symptoms. Today she had a severe paroxysm of coughing, lost consciousness, and fell down 6 carpeted steps. She struck the back of her head and has some back and right hip pain, but no significant injuries. Took ibuprofen without much relief. Admission Exam Per Admitting Provider Constitutional: WD/WN, vitals as above no acute distress Eyes: PERRL, conjunctivae normal, anicteric sclerae ENMT: external ear and nose normal, oropharynx normal Neck: trachea midline, no thyromegaly Respiratory: normal respiratory effort, lungs clear to auscultation Cardiovascular: Rate/Rhythm: regular rate, regular rhythm and + tachycardic Heart Sounds: no gallop, no murmur and no cardiac rub Vessels: no JVD Extremities: no calf tenderness and no edema Gastrointestinal (Abdomen): normal bowel sounds, soft, nontender, no hepatosplenomegaly Musculoskeletal: Head/Neck/Chest: head atraumatic and neck supple Spine: normal cervical ROM and no cervical spinal tenderness Extremities: strength 5/5 throughout; no cyanosis and no clubbing Skin: no rashes, warm and dry Neurologic: PERRL, EOMI no facial palsy no dysarthria or aphasia patellar DTR's 1/2 bilat Psychiatric: Orientation: alert and oriented x 3 Affect: euthymic affect Lymphatic: no cervical lymphadenopathy Principal Diagnosis Flu HTN COPD OSAS Discharge Exam Now off O2 ROS-No Headache, No Visual Changes, No Nausea, No Vomiting, No Fever, No Chills, No Neck Pain or Stiffness, No Chest Pain, No Palpitations, No SOB, No SAUNDERS, No Cough, No Sputum, No Wheezing, No Abdominal Pain, No Diarrhea, No Hematemesis, No Hemoptysis, No Unexpected Weight Loss, No Flank pain, No Melena, No Hematochezia, No Frequency, No Urgency, No Burning, No Hematuria, No Rashes, No Diaphoresis. Appetite is Normal Physical Exam Gen-AAO x 3, NAD, Afebrile Head-NCAT, EOMI, PERRLA, Anicteric Sclera, No Posterior Pharyngeal Erythema Neck-Supple, No JVD, No Thyromegaly, No Masses, No LAD, No Bruits Lungs-Clear to Auscultation Bilaterally, No Rales, No Rhonchi, No Wheezing, No Crepitus Chest-No S4, +S1, +S2, No S3, No Murmurs, No Rubs, No Gallops, No Ectopy Abdomen-Soft, Bowel Sounds Present, Non Tender, Non Distended, No Hepatomegaly, No Splenomegaly, No Palpable Masses, No Rebound, No Rigidity, No Guarding Musculoskeletal-Full Range of Motion Bilaterally, No CVAT Extremities-No Cyanosis, No Clubbing, No Edema Nuero-Cranial Nerves II-XII grossly intact, Motor WNL, DTRs WNL, Strength WNL, Non Focal Psych-Normal Mood Discharge Data Allergies Allergy/AdvReac Type Severity Reaction Status Date / Time No Known Allergies Allergy Verified 05/30/18 20:51 Consultations 05/30/18 22:19 ED Decision to Admit Stat Ordered Studies 05/30/18 19:30 CT cervical spine wo con Stat CT head/brain wo con Stat 05/30/18 19:32 CT abd pelvis IV con only Stat Current Diagnoses Type 2 diabetes mellitus without complications (05/30/18) Nicotine dependence, unspecified, uncomplicated (05/30/18) Sleep apnea, unspecified (05/30/18) Essential (primary) hypertension (05/30/18) Hypertensive heart disease without heart failure (05/30/18) Influenza due to other identified influenza virus with other respiratory manifestations (05/30/18) Chronic obstructive pulmonary disease, unspecified (05/30/18) Atelectasis (05/30/18) Rheumatoid arthritis, unspecified (05/30/18) Syncope and collapse (05/30/18) Encounter for administrative examinations, unspecified (05/30/18) Personal history of diseases of the blood and blood-forming organs and certain disorders involving the immune mechanism (05/30/18) Allergies No Known Allergies Allergy (Verified 05/30/18 20:51) Height/Weight/Isolation Height 5 ft 3 in Weight 76.9 kg Isolation Type Droplet Precautions Chemistry 05/30/18 05/31/18 06/01/18 19:35 05:04 05:19 Sodium 135 L 139 143 Potassium 3.7 3.4 L 3.5 Chloride 100 106 110 H Carbon Dioxide 29 26 27 Anion Gap 6.0 7.0 6.0 BUN 11 11 9 Creatinine 0.84 0.73 0.63 Glucose 119 H 194 H 127 H Urinalysis 05/31/18 03:30 Urine Color Yellow Urine Appearance Clear Urine pH 5.5 Ur Specific [place] 1.013 Urine Protein Negative Urine Glucose (UA) Negative Urine Ketones Negative Urine Blood Negative Urine Nitrite Negative Urine Bilirubin Negative Microbiology 05/30/18 19:35 Blood Blood Culture - Preliminary No growth to date. 05/30/18 19:35 Blood Blood Culture - Preliminary No growth to date. Hospital Course (1) Influenza A: Tamiflu x 3 more days (2) COPD (chronic obstructive pulmonary disease): DC on Tamiflu and steroids. (3) Syncope: Syncope likely posttussive (4) Hypertension: At goal, continue lisinopril per home regimen (5) Sleep apnea: Home CPAP qHS (6) Type 2 diabetes mellitus: At goal, continue home regimen (7) Rheumatoid arthritis: Was due to received sarilumab yesterday, but will need to hold because of influenza. Not taking chronic steroids. (8) History of ITP: Platelet count 134-124 in setting of infection (9) Smoking: Smokes 1 PPD. Smoking cessation counseling. (10) DVT prophylaxis: Dispo-to home Total Time Total Time Spent Total Time Spent (In Minutes): 35 mins Total Time Includes: Examination of the Patient, Discharge Planning, Medication Reconciliation and Communication With Other Providers Discharge Plan Discharge Items Patient Disposition: Home - Self-Care Reason For Visit: INFLUENZA A, HYPOXIA, SYNCOPE Discharge Diagnosis: Flu A Condition: Good Discharge Goals: Decrease discomfort and Improve function Activity: Resume your previous activity Lifting: Gradually increase as tolerated Bathing: No limitations Sexual Activity: When tolerated Exercise/Sports: Gradually increase as tolerated Driving/Machine Use: No limitations Weightbearing: Left weightbearing and Right weightbearing Non-emergency contact: Primary Care Provider Call non-emergency contact if: you have any medication questions and your symptoms worsen Follow-up/Referrals: Raven Jenkins MD [Primary Care Provider] - Diet: Heart Healthy Addtl Provider Instructions: None Prescriptions: New oseltamivir [Tamiflu] 75 mg Capsule 75 mg PO BID Qty: 6 RF: 0 prednisone 20 mg Tablet 40 mg PO DAILY Qty: 20 RF: 0 Continued gabapentin 600 mg Tablet 600 mg PO TID RF: 0 metoprolol succinate 100 mg Tablet Extended Release 24 Hr 100 mg PO HS RF: 0 folic acid 1 mg Tablet 3 mg PO HS RF: 0 lisinopril 5 mg Tablet 5 mg PO HS RF: 0 zolpidem 10 mg Tablet 10 mg PO HS PRN (Reason: Sleep) RF: 0 cholecalciferol (vitamin D3) [Vitamin D3] 1,000 unit Capsule 2,000 unit PO HS RF: 0 escitalopram oxalate [Lexapro] 10 mg Tablet 10 mg PO HS RF: 0 Symbicort 160-4.5 mcg/actuation Hfa Aerosol Inhaler 2 puff INHALATION BID RF: 0 Janumet XR 50-1,000 mg Tablet, Er Multiphase 24 Hr 1 tab PO BID RF: 0 Kevzara 200 mg/1.14 mL Pen Injector 1 dose SUBCUT DIRECTED RF: 0 albuterol sulfate [Ventolin HFA] 90 mcg/actuation Hfa Aerosol Inhaler 2 puff INHALATION Q4 PRN (Reason: Wheezing) RF: 0 Visit Report Forms: Smoking Cessation Stand-Alone Forms: [facility], Work/School Release (Inpt) Discharge Orders: Discharge Order (Routine); Ordered 06/01/18 Ordered By: Sonny Damon Admission Data Admit Date/Time: 05/30/18 22:25 Attending Provider: Sonny Damon Admit Provider: Jules Rowan Primary Care Provider: Raven Jenkins Other Providers: Jules Rowan Service: Telemetry Medical
== END 2018-06-01 14:49 | disposition home or self-care (01) | DRG 194 ==
LOC: ED 19:07 → 2W 22:25 → SUATTDRO 22:25 → 2W 05-31 00:39
DX: J98.11 Atelectasis; J44.1 Chronic obstructive pulmonary disease with (acute) exacerbation; M06.9 Rheumatoid arthritis, unspecified; F17.200 Nicotine dependence, unspecified, uncomplicated; E11.9 Type 2 diabetes mellitus without complications; G47.30 Sleep apnea, unspecified; I11.9 Hypertensive heart disease without heart failure; J10.1 Influenza due to other identified influenza virus with other respiratory manifestations; Z79.84 Long term (current) use of oral hypoglycemic drugs

== ENCOUNTER 2023-05-29 12:34 | Inpatient (IN) ==
--- OUTSIDE RECORDS SUMMARY | 2023-05-29 12:39 | External Medical Summary | Summary of Care ---
Author Name Unknown Organization [facility] Address [address] [facility] [place] [address] Phone [phone] Care Team Providers Care Energy Broker Name Role Phone Raven Agrawal MD Primary Care Provider [phone] Encounter Details Date Type Department Care Team (Late st Contact Info) Description 05/02/2023 Result Scan Unspecified Department <No scans attached> Allergies No known active allergiesdocumented as of this encounter (statuses as of 05/26/2023) Medications Medication Sig Dispensed Refills Start Date End Date Status VITAMIN D 2000 UNIT PO TABS one tablet daily] 0 Activ e KEVZARA 200 MG/1.14ML SOSY Injection every other week 0 09/20/2017 Active Multiple Vitamin (MULTI-DAY) Tablet Take 1 Tab by mouth daily. 0 Active aspirin enteric coated 81 MG TBECIndications:Mi xed dyslipidemia,Subcl brice artery stenosis, right (HCC) Take 1 Tab by mouth daily. St 09/16 100 Tab 3 01/03/2019 Active traMADol (ULTRAM) 50 MG Tablet Take 1 Tablet by mouth daily as needed for Pain. 1 Tab 0 07/04/2019 Active zolpidem (AMBIEN) 10 MG TabletIndications: Persistent insomnia Take 1 Tablet by mouth at bedtime. DrMurphy 7 Tab 0 07/04/2019 Active Melatonin ER 1 MG TBCRIndications:Pe rsistent insomnia at bedtime 0 10/02/2019 Active Additional Information Patient taking differently: 3 mg Oral HS PRN, Sleep, at bedtime, Reported on 05/19/2023 Ipratropium-[place] rol 0.5-2.5 (3) MG/3ML Inhalation Solution (Duoneb)Indication s:COPD exacerbation (HCC),Bronchitis, complicated Inhale 3 mL via nebulizer every 6 hours as needed for Wheezing. 120 mL 0 12/25/2020 Active CPAP every night at bedtime . 0 Active Clobetasol Propionate 0.05 % External Cream (Temovate) Apply topically to affected area 2 times a day. To affected area for up to two weeks. 15 g 1 04/08/2022 Active Additional Information Patient taking differently:TopicalPRN, yeast infections, To affected area for up to two weeks., Reported on 10/06/2022 amLODIPine Besylate 2.5 MG Oral Tablet (Norvasc)Indicatio ns:HTN, goal below 130/80,LVH (left ventricular hypertrophy) due to hypertensive disease, without heart failure TAKE 1 TABLET BY MOUTH EVERY DAY 90 Tablet 4 07/24/2022 Active Fluticasone-Umecli din-Vilant 100-62.5-25 MCG/ACT Aerosol Powder Breath Activated (Trelegy Ellipta)Indication s:Hospital discharge follow-up,COPD exacerbation (HCC),Rhinovirus infection,COPD, moderate (HCC) Inhale 1 Puff by mouth in the morning. Start 11/27/2022 and stop symbicort (cancel Rx anoro ellipta). 60 Blister Dosing Unit 5 11/27/2022 Active Rosuvastatin Calcium 10 MG Oral Tablet (Crestor)Indicatio ns:Type 2 diabetes mellitus with diabetic neuropathy, without long-term current use of insulin ([facility]),Mixed dyslipidemia TAKE 1 TABLET BY MOUTH EVERY DAY 90 Tablet 2 12/23/2022 Active Gabapentin 600 MG Oral Tablet (Neurontin)Indicat ions:Type 2 diabetes mellitus with diabetic neuropathy, without long-term current use of insulin ([facility]) TAKE 1 TABLET IN MORNING, 1.5 TABLET AT NOON AND 1.5 TABLET BEFORE BEDTIME 360 Tablet 1 04/14/2023 Active Ketoconazole 2 % External CreamIndications:S eborrheic dermatitis Apply to affected areas twice daily-nasolabial folds x2-4 wks, then as needed 30 g 1 04/14/2023 Active DULoxetine HCl 60 MG Oral Capsule Delayed Release Particles (Cymbalta)Indicati ons:Major depressive disorder with single episode, in remission ([facility]),Type 2 diabetes mellitus with diabetic neuropathy, without long-term current use of insulin (HCC),Cervical spinal stenosis,Cervical spondylosis TAKE 1 CAPSULE BY MOUTH EVERY MORNING 90 Capsule 1 05/03/2023 Active Hospital, Clinic, or Other Facility Administered Medication Ordered Dose Route Frequency Start Date End Date Status Albuterol Sulfate (Proventil) (2.5 MG/3ML) 0.083% inhalation solution 2.5 mgIndications:COPD, moderate (HCC) 2.5 mg NEBULIZER PRN 12/29/2022 12/29/2023 Active documented as of this encounter (statuses as of 05/26/2023) Active Problems Problem Noted Date Diagnosed Date Type 2 diabetes mellitus wit h diabetic neuropathy, without long-term current use of insulin 10/06/2022 Mixed dyslipidemia 10/06/2022 COPD, group B, by GOLD 2017 classification 06/08 Overview: Per COPD GOLD Classification Granulomatous lung disease 06/27/2021 Dense breast tissue on mammogram 01/06/2019 Overview: 01/17; Tobacco use disorder 06/09/2018 Elevated hemoglobin 04/04/2018 Overview: 04/1999-[id number]-[id number] EPO, ferritin,Tsat, neg JAK2 mutn LVH (left ventricular hypert rophy) due to hypertensive disease, without heart failure 12/27/2017 Overview: 06/1751-qkwz-st83%, no WMabn,mild A Scl,gr 2 DD HTN, goal below 130/80 12/27/2017 Screen for colon cancer 12/27/2017 Overview: 02/15-sig tics-rpt 10 yrs History of Clostridium difficile infection 12/27 MASHA on CPAP 12/27/2017 Hepatic steatosis 12/27/2017 Rheumatoid arthritis involvi ng multiple sites with positive rheumatoid factor 07/21/2017 Deviated nasal septum 07/12/2017 Immune thrombocytopenia 09/11/2015 Still's disease of adult 04/17/2015 Type 2 diabetes mellitus wit h hemoglobin A1c goal of less than 7.0% 12/16/2010 Overview: ICD-10 update of inactive term documented as of this encounter (statuses as of 05/26/2023) Resolved Problems Problem Noted Date Diagnosed Date Resolved Date COPD, group A, by GOLD 2017 classification 02/09/2022 06/11/2022 Overview: Per COPD GOLD Classification COPD, moderate 04/11/2019 02/12/2022 Overview: Per COPD GOLD Classification COPD, group B, by GOLD 2017 classification 11/07/2018 04/12/2019 Overview: Per COPD GOLD Classification COPD, moderate 12/27/2017 11/11/2018 Overview: Per COPD GOLD Classification Chronic nonspecific lung disease 08/16/2017 12/27/2017 Acute respiratory failure with hypoxia 08/16/2017 12/27/2017 Rheumatoid arthritis with po sitive rheumatoid factor 06/22/2017 07/21/2017 Undiagnosed cardiac murmurs 03/11/2011 06/22/2017 #[id number]\[email or web address]\ENEWMAN 04/12/2003 Overview: Renamed Per Clinical Trials Billing Project. Pt is a participant in the [facility] (Consortium of Rheumatology Researchers of [place]) national data collection study. For further information please call Dr Alban Del Real or Tata Meeks, RN, CCRC at [phone] [facility] RESEARCH OTHER*[id number] 04/12/2003 08/26/2009 Overview: Renamed Per Clinical Trials Billing Project. Pt is a participant in the [facility] (Consortium of Rheumatology Researchers of [place]) national data collection study. For further information please call Dr Alban Del Real or Tata Meeks, RN, CCRC at [phone] ABN CERVIX NEC-ANTEPART 11/24/200205/31 Elderly multigravida with an tepartum condition or complication 10/10/2002 06/22/2017 Arthritis, rheumatoid 2017 DIABETES-ANTEPARTUM 06/23/19 18 documented as of this encounter (statuses as of 05/26/2023) Immunizations Name Administration Dates Next Due COVID-19 mRNA, LNP-s, No Pre serve, 2-Dose Series (Moderna) 06/03/2020,05/06/2020 COVID-19, mRNA, LNP-s, PF, B ooster, 100mcg/0.5mg (Moderna) 03/24/2021 Covid-19, Mrna, Lnp-s, Pf, B ivalent, 50 Mcg, IM, 12 yrs and above (Moderna) 01/07/2022 HEP A - Hepatitis A (Adult > 18 yrs) 03/13/2018 Hepatitis B, 20+ yrs 08/09/2013,03/08/2013,01/3103/03/2013 Meningococcal MCV4P Conjugat e Vaccine (Menactra) 03/13/2018 Pneumococcal Conjugate Vacci ne, 20-valent ([id number]) 04/06/2022 SARS-COV-2 (COVID-19) Vaccine Unspecified 2021 Seasonal Influenza Virus Vac cine, Unspecified Formulation 01/03/2019,01/31/2013,11/17/2011 Seasonal Influenza, PF, 6 M & above, IM , (FluLaval or Fluzone) 01/03/2019 Seasonal Influenza, Split, I IV3, With Preserve, Inj 01/31/2013,11/17/2011 TD - Tetanus/Diptheria (ADULT) 11/17/2011 TD, Preservative Free 10/06/2022,11/17/2011 TDAP (age 11 and older)(Adacel) 01/29/2009 Zoster Vaccine Recombinant (Shingrix) 05/08/2019 ,01/17/2019 documented as of this encounter Social History Tobacco Use Types Packs/Day Years Used Date Smoking Tobacco: Every Day Cigarettes 1 36 Smokeless Tobacco: Never Comments:06/29/22 currently smoking 1 ppd Alcohol Use Standard Drinks/Week Comments Yes 0 (1 standard drink = 0.6 oz pur e alcohol) rare 3/yr PHQ-2 Answer Date Recorded PHQ Adult Total Score 0 04/06/2022 Hunger Vital Sign Answer Date Recorded Worried About Running Out of Food in the Last Ye ar Never true 01/03/2019 Ran Out of Food in the Last Year Never true 01/03/2019 Sex and Gender Information Value Date Recorded Sex Assigned at Female 06/28/2018 3:23 PM EDT Gender Identity Female 06/28/2018 3:23 PM EDT Sexual Orientation Straight 06/28/2018 3: 23 PM EDT Job Start Date Occupation Industry Not on file Not on file Not on file documented as of this encounter Plan of Treatment Upcoming Encounters Date Type Department Care Team (Late st Contact Info) Description 07/21/2023 5:00 PM EDT Office Visit General Internal Medicine [facility] [address] [place] [address] Raven Agrawal MD [address] [place] [address] 07/22/2023 1:30 PM EDT Office Visit Cardiology, [facility] [address] [place] [address] Kaushal Solis PA-C [address] [place] [address] 08/10/2023 1:00 PM EDT Office Visit Sleep Disorders Ctr [facility] [address] [place] [id number] Patricia Guevara DO [address] [place] [address] 10/13/2023 5:00 PM EDT Office Visit General Internal Medicine [facility] [address] [facility] [address] [place] [address] Raven Agrawal MD [address] [place] [address] 12/24/2023 1:00 PM EDT Imaging Radiology [facility] [address] [place] [address] Scheduled Procedures Name Priority Associated Diagnoses Date/Ti me COLONOSCOPY FLEXIBLE PROXIMA L DIAGNOSTIC Recall Screening for malignant neoplasm of colon Health Maintenance Due Date Last Done Comments HPV/Co-Test 1996 Cologuard 09/13/2011 Fecal Occult Blood Test 09/13/2011 Sigmoidoscopy 09/13/2011 COVID-19 Vaccine ( season) 2022 01/07/2022, 03/25/2021, 03/24/2021, Additional history exists Influenza Vaccine (FLU shot) (#1) 2022 01/03/2019, 01/03/2019, 01/31/2013, Additional history exists Diabetic Eye Exam 01/15/2023 01/15/2022, , 07/22/2017, Additional history exists Albumin/Creatinine Ratio 04/03/2023 023, 04/01/2021, 03/25/2020, Additional history exists Depression Screening 04/06/2023 04/06/2022 Diabetic Foot Exam 04/06/2023 04/06/2022, 0 07/03/2021, 03/27/2020, Additional history exists HbA1c 04/07/2023 10/05/2022, 020 04/2022, 10/21/2021, Additional history exists Cervical Cancer Screening 09/25/2023 Pap Smear 09/25/2023 09/24/2020, 2 05/2017, 03/30/2014, Additional history exists B-12 10/06/2023 10/05/2022, 03/02, 07/04/2019, Additional history exists Mammogram 12/18/2023 12/17/2022, 06/2021, 10/09/2020, Additional history exists GFR 05/12/2024 05/13/2023, 0 08/2023, 05/04/2023, Additional history exists O2 ASSESSMENT COMPLETED IN PAST YEAR FOR COPD 05/18/2024 05/19/2023 Colonoscopy 02/03/2028 02/02/2018, 02/02/2018 Colorectal Cancer Screening 02/03/2028 Lipid Panel 04/20/2028 04/20/2023, 080 08/2022, 04/03/2022, Additional history exists DTaP,Tdap,and Td Vaccines (5 - Td or Tdap) 10/06/2032 10/06/2022, 11/17/2011, 11/17/2011, Additional history exists Hepatitis B Completed 08/09/2013, 0 09/2013, 01/31/2013 Hepatitis C Screening Completed 08/12/2015 MENINGOCOCCAL (MENACTRA/MENVEO) Aged Out 03/13/2018 No longer eligible based on patient's age to complete this topic Zoster Vaccines Completed 05/08/2019, 01/17/2019 Alpha-1 Antitrypsin Completed 09/20/2020 Pneumococcal Vaccine: Pediatrics (0 to 5 Years) and At-Risk Patients (6 to 64 Years) Completed 04/06/2022, 03/16/2005 GARDASIL-HPV IMMUNIZATION SERIES Aged Out No longer eligible based on patient's age to complete this topic documented as of this encounter Medical Devices Not on filedocumented as of this encounter Procedures Procedure Name Priority Date/Time Associated Diagnosis Comments RADIOLOGY SCANNED RESULT 05/02/2023 documented in this encounter Results * RADIOLOGY SCANNED RESULT (05/02/2023) 05/02/2023 No Physician Data Unknown DIAGNOSTIC RAD IOLOGY SERVICES documented in this encounter Care Teams Energy Broker Relationship Specialty Start Date End Date Raven Agrawal MD [address] [facility] [place] [address] PCP - General Internal Medicine 12/27/17 documented as of this encounter
--- OUTSIDE RECORDS SUMMARY | 2023-05-29 12:39 | External Medical Summary | Summary of Care ---
Author Name Unknown Organization [facility] Address [address] [facility] [address] Phone [phone] Care Team Providers Care Commercial Glazier Name Role Phone Raven Agrawal MD Primary Care Provider [phone] Encounter Details Date Type Department Care Team (Late st Contact Info) Description 05/24/2023 Telephone Hematology/Oncology [facility] [place] [address] [facility] [place] [address] Fatimah Quintero CRNP 400 [facility] [place] [address] Allergies No known active allergiesdocumented as of this encounter (statuses as of 05/27/2023) Medications Medication Sig Dispensed Refills Start Date [...] neuropathy, without long-term current use of insulin (HCC),Mixed dyslipidemia TAKE 1 TABLET BY MOUTH EVERY DAY 90 Tablet 2 12/23/2022 Active Gabapentin 600 MG Oral Tablet (Neurontin)Indicat ions:Type 2 diabetes mellitus with diabetic neuropathy, without long-term current use of insulin (HCC) TAKE 1 TABLET IN MORNING, 1.5 TABLET AT NOON AND 1.5 TABLET BEFORE BEDTIME 360 Tablet 1 04/14/2023 Active Ketoconazole 2 % External CreamIndications:S eborrheic dermatitis Apply to affected areas twice daily-nasolabial folds x2-4 wks, then as needed 30 g 1 04/14/2023 Active DULoxetine HCl 60 MG Oral Capsule Delayed Release Particles (Cymbalta)Indicati ons:Major depressive disorder with single episode, in remission ([facility]),Type 2 diabetes mellitus with diabetic neuropathy, without long-term current use of insulin ([facility]),Cervical spinal stenosis,Cervical spondylosis TAKE 1 CAPSULE BY MOUTH EVERY MORNING 90 Capsule 1 05/03/2023 Active Janumet XR 50-1000 MG Oral Tablet Extended Release 24 Hour (SITagliptin-metFO RMIN HCl ER) Take 1 Tablet by mouth in the morning. 0 Active Nicotine 21 MG/24HR Transdermal Patch 24 Hour (Nicoderm CQ) Place 1 Patch topically on the skin daily. 0 05/16/2023 Active oxyCODONE HCl 5 MG Oral Tablet (Oxy IR) Take 1 Tablet by mouth every 6 hours as needed for Pain, Mild. 0 05/16/[address] [employer] Verio In Vitro Strip (Glucose Blood)Indications: Type 2 diabetes mellitus with diabetic neuropathy, without long-term current use of insulin ([facility]) Use upto twice daily E11.9 100 Strip 11 05/19/[address] [employer] Verio w/Device KitIndications:Typ e 2 diabetes mellitus with diabetic neuropathy, without long-term current use of insulin ([facility]) Use upto twice daily E11.9 1 Kit 0 05/19/2023 Active [employer] UltraSoft LancetsIndications :Type 2 diabetes mellitus with diabetic neuropathy, without long-term current use of insulin ([facility]) Use upto twice daily E11.9 100 Each 1 05/19/2023 Active Lisinopril 10 MG Oral Tablet (Prinivil)Indicati ons:LVH (left ventricular hypertrophy) due to hypertensive disease, without heart failure,Type 2 diabetes mellitus with hemoglobin A1c goal of less than 7.0% ([facility]),HTN, goal below 130/80 Take 1 Tablet by mouth every evening. 0 05/19/2023 Active Metoprolol Succinate ER 100 MG Oral Tablet Extended Release 24 Hour (toPROL XL)Indications:LVH (left ventricular hypertrophy) due to hypertensive disease, without heart failure,HTN, goal below 130/80 Take 1 Tablet by mouth in the morning. --takes at night. 0 05/19/2023 Active Acetaminophen 500 MG Oral Tablet (Tylenol)Indicatio ns:Pubic ramus fracture, unspecified laterality, with routine healing, subsequent encounter,Closed fracture of medial portion of left tibial plateau with routine healing, subsequent encounter,S/P ORIF (open reduction internal fixation) fracture,Hospital discharge follow-up,Closed fracture of sacrum with routine healing, unspecified fracture morphology, subsequent encounter Take 2 Tablets by mouth every 8 hours as needed for Pain, Moderate. 0 05/19/2023 Active Hospital, Clinic, or Other Facility Administered Medication Ordered Dose Route Frequency Start Date End Date Status Albuterol Sulfate (Proventil) (2.5 MG/3ML) 0.083% inhalation solution 2.5 mgIndications:COPD, moderate (HCC) 2.5 mg NEBULIZER PRN 12/29/2022 12/29/2023 Active documented as of this encounter (statuses as of 05/27/2023) Active Problems Problem Noted Date Diagnosed Date Type 2 diabetes mellitus wit h diabetic neuropathy, without long-term current use of insulin 10/06/2022 Mixed dyslipidemia 10/06/2022 COPD, group B, by GOLD 2017 classification 06/08 Overview: Per COPD GOLD Classification Granulomatous lung disease 06/27/2021 Dense breast tissue on mammogram 01/06/2019 Overview: 01/17; Tobacco use disorder 06/09/2018 Elevated hemoglobin 04/04/2018 Overview: 04/1957-ElZypn-you EPO, ferritin,Tsat, neg JAK2 mutn LVH (left ventricular hypert rophy) due to hypertensive disease, without heart failure 12/27/2017 Overview: 06/1743-axkh-pp01%, no WMabn,mild A Scl,gr 2 DD HTN, [...] as of this encounter (statuses as of 05/27/2023) Resolved Problems Problem Noted Date Diagnosed Date [...] Project. Pt is a participant in the [employer] (Consortium of [employer] [place]) national data collection study. For further information please call Dr Alban Del Real or Tata Meeks, RN, CCRC at [phone] [facility] OTHER*[id number] 04/12/2003 08/26/2009 Overview: Renamed Per Clinical Trials Billing Project. Pt is a participant in the [employer] (Consortium of [employer] Researchers [place]) national data collection study. For further information please call Dr Alban Del Real or Tata Meeks, RN, CCRC at [phone] ABN CERVIX NEC-ANTEPART 11/24/200205/31 Elderly multigravida with an tepartum condition or complication 10/10/2002 06/22/2017 Arthritis, rheumatoid 2017 DIABETES-ANTEPARTUM 06/23/19 18 documented as of this encounter (statuses as of 05/27/2023) Immunizations Name Administration Dates Next Due COVID-19 [...] (Menactra) 03/13/2018 Pneumococcal Conjugate Vacci ne, 20-valent ([id number]) 04/06/2022 Pneumococcal Polysaccharide PPV23 (Pneumovax) 03/16/2005 SARS-COV-2 (COVID-19) Vaccine Unspecified 2021 Seasonal Influenza [...] Types Packs/Day Years Used Date Smoking Tobacco: Former Cigarettes 1 36 Smokeless Tobacco: Never Comments:06/29/22 [...] on file documented as of this encounter Miscellaneous Notes * Telephone Encounter - Any Caceres OSA - 05/27/2023 8:32 AM EDT Called x3 and sent my g to patient Letter sent as well * Telephone Encounter - Any Caceres OSA - 05/26/2023 8:57 AM EDT Called x2 left message * Telephone Encounter - Any Caceres OSA - 05/25/2023 8:40 AM EDT Called left message for pt to call in and schedule * Telephone Encounter - Consuelo Mariee MED ASSIST - 05/24/2023 3:33 PM EDT Pt did not show for appt on 05/24/2023 with Fatimah Please call and reschedule documented in this encounter Plan of Treatment Upcoming Encounters Date Type Department Care Team (Late st Contact Info) Description 07/21/2023 5:00 PM EDT Office Visit General Internal Medicine [address] [place] [address] [place] [address] Raven Agrawal MD [address] [place] [address] 07/22/2023 1:30 PM EDT Office Visit Cardiology, [facility] [address] [facility] [place] [address] Kaushal Solis PA-C [address] [place] [address] 08/10/2023 1:00 PM EDT Office Visit Sleep Disorders Ctr [facility] [address] [facility] [address] Patricia Guevara DO 132 [facility] [place] [address] 10/13/2023 5:00 PM EDT Office Visit General Internal Medicine [facility] 200 [facility] [place] [address] Raven Agrawal MD 200 [facility] [place] [address] 12/24/2023 1:00 PM EDT Imaging Radiology [facility]st [facility] 132 [facility] [place] [address] Scheduled Procedures Name Priority Associated Diagnoses Date/Ti [...] Cancer Screening 09/25/2023 Pap Smear 09/25/2023 09/24/2020, 05/31, 03/30/2014, Additional history exists B-12 10/06/2023 10/05/2022, [...] Not on filedocumented as of this encounter Care Teams Commercial Glazier Relationship Specialty Start Date End Date Raven Agrawal MD 200 [place] [place] [address] PCP - General Internal Medicine 12/27/17 documented as of this encounter
--- OUTSIDE RECORDS SUMMARY | 2023-05-29 12:39 | External Medical Summary | Summary of Care ---
Author Name Unknown Organization [facility] Address [address] [place] [facility] [place] [address] Phone [phone] Care Team Providers Care Sales Manager Prearranged Funerals Name Role Phone Raven Agrawal MD Primary Care Provider [phone] Encounter Details Date Type Department Care Team (Late st Contact Info) Description 05/26/2023 Orders Only General Internal Medicine [facility] [place] 200 [facility] [place] [address] Raven Agrawal MD 200 [facility] [place] [address] Allergies No known active allergiesdocumented as of [...] neuropathy, without long-term current use of insulin ([facility]) TAKE 1 TABLET IN MORNING, 1.5 TABLET AT NOON AND 1.5 TABLET BEFORE BEDTIME 360 Tablet 1 04/14/2023 Active Ketoconazole 2 % External CreamIndications:S eborrheic dermatitis Apply to affected areas twice daily-nasolabial folds x2-4 wks, then as needed 30 g 1 04/14/2023 Active DULoxetine HCl 60 MG Oral Capsule Delayed Release Particles (Cymbalta)Indicati ons:Major depressive disorder with single episode, in remission ([facility]),Type 2 diabetes mellitus with diabetic neuropathy, without long-term current use of insulin ([facility]),Cervical spinal stenosis,Cervical spondylosis TAKE 1 CAPSULE BY [...] needed for Pain, Mild. 0 05/16/2023 Active [employer] Verio In Vitro Strip (Glucose Blood)Indications: Type 2 diabetes mellitus with diabetic neuropathy, without long-term current use of insulin ([facility]) Use upto twice daily E11.9 100 Strip 11 05/19/2023 Active [employer] Verio w/Device KitIndications:Typ e 2 diabetes mellitus with diabetic neuropathy, without long-term current use of insulin ([facility]) Use upto twice daily E11.9 1 Kit 0 05/19/2023 Active [employer]oton[employer]Touch UltraSoft LancetsIndications :Type 2 diabetes mellitus with diabetic neuropathy, without long-term current use of insulin ([facility]) Use upto twice daily E11.9 100 Each 1 05/19/2023 Active Lisinopril 10 MG Oral Tablet (Prinivil)Indicati ons:LVH (left ventricular hypertrophy) due to hypertensive disease, without heart failure,Type 2 diabetes mellitus with hemoglobin A1c goal of less than 7.0% ([facility]),HTN, goal below 130/80 Take 1 Tablet by mouth every evening. 0 05/19/2023 Active Metoprolol Succinate ER 100 MG Oral Tablet Extended Release 24 Hour (toPROL XL)Indications:LVH (left ventricular hypertrophy) due to hypertensive disease, without heart failure,HTN, goal below 130/80 Take 1 Tablet by mouth in the morning. --takes at night. 0 05/19/2023 Active Acetaminophen 500 MG Oral Tablet (Tylenol)Renuo ns:Pubic ramus fracture, unspecified laterality, with routine [...] use disorder 06/09/2018 Elevated hemoglobin 04/04/2018 Overview: 04/1986-YmFrcq-vod EPO, ferritin,Tsat, neg JAK2 mutn LVH (left ventricular hypert rophy) due to hypertensive disease, without heart failure 12/27/2017 Overview: 06/1729-mpco-pp81%, no WMabn,mild A Scl,gr 2 DD HTN, [...] Real or Tata Meeks, RN, CCRC at [phone] [facility] RESEARCH OTHER*[id number] 04/12/2003 08/26/2009 Overview: Renamed Per Clinical Trials Billing Project. Pt is a participant in the [employer] (Consortium of Rheumatology Researchers [place]) national data collection study. For further information please call Dr Alban Del Real or Tata Meeks, RN, CCRC at [phone] ABN CERVIX NEC-ANTEPART 11/24/200205/31 Elderly multigravida with [...] (Menactra) 03/13/2018 Pneumococcal Conjugate Vacci ne, 20-valent ([id number]) 04/06/2022 SARS-COV-2 (COVID-19) Vaccine Unspecified 2021 Seasonal [...] PM EDT Office Visit General Internal Medicine [facility] [address] [place] [address] [address] Raven Agrawal MD [address] [place] [address] [address] [address] 07/22/2023 1:30 PM EDT Office Visit [facility]iology, [facility] [place] [address] Kaushal Solis PA-C [address] [place] [address] 08/10/2023 1:00 PM EDT Office Visit Sleep Disorders Ctr [facility] 132 [facility] [place] [phone] Patricia Guevara DO [address] [place] [address] 10/13/2023 5:00 PM EDT Office Visit General Internal Medicine [facility] [address] [place] [address] [address] Raven Agrawal MD [address] [place] [address] 12/24/2023 1:00 PM EDT Imaging Radiology [address] 132 [facility] [place] [address] Scheduled Procedures Name Priority Associated Diagnoses Date/Ti [...] 03/27/2020, Additional history exists HbA1c 04/07/2023 10/05/2022, 02/0 04/2022, 10/21/2021, Additional history exists Cervical Cancer Screening 09/25/2023 Pap Smear 09/25/2023 09/24/2020, 05/31, 03/30/2014, Additional history exists B-12 10/06/2023 10/05/2022, 03/02, 07/04/2019, Additional history exists Mammogram 12/18/2023 12/17/2022, 10/0 06/2021, 10/09/2020, Additional history exists GFR 05/12/2024 05/13/2023, 03/0 08/2023, 05/04/2023, Additional history exists O2 ASSESSMENT COMPLETED IN PAST YEAR FOR COPD 05/18/2024 05/19/2023 Colonoscopy 02/03/2028 02/02/2018, 02/02/2018 Colorectal Cancer Screening 02/03/2028 Lipid Panel 04/20/2028 04/20/2023, 08/0 08/2022, 04/03/2022, Additional history exists DTaP,Tdap,and Td Vaccines (5 - Td or Tdap) 10/06/2032 10/06/2022, 11/17/2011, 11/17/2011, Additional history exists Hepatitis B Completed 08/09/2013, 09/2013, 01/31/2013 Hepatitis C Screening Completed 08/12/2015 [...] Procedure Name Priority Date/Time Associated Diagnosis Comments CHEMISTRY-OUTSIDE Routine 05/04/2023 documented in this encounter Results * (ABNORMAL) CHEMISTRY-OUTSIDE (05/04/2023) Not all results display below - see scan for full detail OUTSIDE LAB (SEE SCANNED REPORT) Comment:SCAN INCLUDES: CBCD, COAG, CHEM, PHOS, TOXICOLOGY, BLOOD GASES, UA CREATININE-OUTSID E LAB 0.75 0.7 - 1.2 MG/DL OUTSIDE LAB (SEE SCANNED REPORT) EGFR-OUTSIDE LAB 93 >59 ML/MIN OUTSIDE LAB (SEE SCANNED REPORT) POTASSIUM-OUTSIDE LAB 4.4 3.6 - 5.0 MMOL/L OUTSIDE LAB (SEE SCANNED REPORT) GLUCOSE-OUTSIDE LAB 166(A) 70 - 99 MG/DL OUTSIDE LAB (SEE SCANNED REPORT) HOURS FASTING OUTSID E LAB (SEE SCANNED REPORT) TRIGLYCERIDES-OUT SIDE LAB OUTSIDE LAB (SEE SCANNED REPORT) CHOLESTEROL-OUTSI DE LAB OUTSIDE LAB (SEE SCANNED REPORT) HDL-OUTSIDE LAB OUTS CORY LAB (SEE SCANNED REPORT) CHOL/HDL RATIO-OUTSIDE LAB OUTSIDE LA B (SEE SCANNED REPORT) LDL (CALCULATED)-OUTS CORY LAB OUTSIDE LAB (SEE SCANNED REPORT) LDL (DIRECT MEASURE)-OUTSIDE LAB OUTSIDE LAB (SEE SCANNED REPORT) HEMOGLOBIN, T3A-SBPYTJZ LAB OUTSIDE LAB (SEE SCANNED REPORT) PHOSPHORUS-OUTSID E LAB 3.7 2.5 - 4.5 MG/DL OUTSIDE LAB (SEE SCANNED REPORT) PTH-OUTSIDE LAB OUTS CORY LAB (SEE SCANNED REPORT) MICROALBUMIN RATIO-OUTSIDE LAB OUTSIDE LA B (SEE SCANNED REPORT) PROTEIN, UA-OUTSIDE LAB NEGATIVE OUTSIDE LAB (SEE SCANNED REPORT) HGB 10.6(A) 12 - 15.2 G/DL OUTSIDE LAB (SEE SCANNED REPORT) 05/04/2023 History Per Patient LABORATORY OUTSIDE LAB (SEE SCANNED REPORT) documented in this encounter Care Teams Sales Manager Prearranged Funerals Relationship Specialty Start Date End Date Raven Agrawal MD 200 [facility] [place] [address] PCP - General Internal Medicine 12/27/17 documented as of this encounter
--- OUTSIDE RECORDS SUMMARY | 2023-05-29 12:39 | External Medical Summary | Summary of Care ---
Author Name Unknown Organization [facility] Address [address] [facility] [place] [address] Phone [phone] Care Team Providers Care Road Production General Manager Name Role Phone Raven Agrawal MD Primary Care Provider [phone] Encounter Details Date Type Department Care Team (Late st Contact Info) Description 05/24/2023 Telephone Hematology/Oncology [facility] [place] 200 [facility] [place] [address] Fatimah Quintero CRNP 400 [facility] [place] [address] Allergies No known active allergiesdocumented as of this encounter (statuses as of 05/25/2023) Medications Medication Sig Dispensed Refills Start Date [...] depressive disorder with single episode, in remission ([facility]),Type 2 diabetes mellitus with diabetic neuropathy, without long-term current use of insulin ([facility]),Cervical spinal stenosis,Cervical spondylosis TAKE 1 [...] needed for Pain, Mild. 0 05/16/2023 Active [employer] Verio In Vitro Strip (Glucose Blood)Indications: Type 2 diabetes mellitus with diabetic neuropathy, without long-term current use of insulin ([facility]) Use upto twice daily E11.9 100 Strip 11 05/19/2023 Active [employer] Verio w/Device KitIndications:Typ e 2 diabetes mellitus with diabetic neuropathy, without long-term current use of insulin ([facility]) Use upto twice daily E11.9 1 Kit 0 05/19/2023 Active [employer] DynamicsTouch UltraSoft LancetsIndications :Type 2 diabetes mellitus with diabetic neuropathy, without long-term current use of insulin ([facility]) Use upto twice daily E11.9 100 Each 1 05/19/2023 Active Lisinopril 10 MG Oral Tablet (Prinivil)Indicati ons:LVH (left ventricular hypertrophy) due to hypertensive disease, without heart failure,Type 2 diabetes mellitus with hemoglobin A1c goal of less than 7.0% ([facility]),HTN, goal below 130/80 Take 1 [...] as of this encounter (statuses as of 05/25/2023) Active Problems Problem Noted Date Diagnosed Date Type 2 diabetes mellitus wit h diabetic neuropathy, without long-term current use of insulin 10/06/2022 Mixed dyslipidemia 10/06/2022 COPD, group B, by GOLD 2017 classification 06/08 Overview: Per COPD GOLD Classification Granulomatous lung disease 06/27/2021 Dense breast tissue on mammogram 01/06/2019 Overview: 01/17; Tobacco use disorder 06/09/2018 Elevated hemoglobin 04/04/2018 Overview: 04/1969-PhMbth-qux EPO, ferritin,Tsat, neg JAK2 mutn LVH (left ventricular hypert rophy) due to hypertensive disease, without heart failure 12/27/2017 Overview: 06/1798-dzdq-wr68%, no WMabn,mild A Scl,gr 2 DD HTN, [...] as of this encounter (statuses as of 05/25/2023) Resolved Problems Problem Noted Date Diagnosed Date [...] Real or Tata Meeks, RN, CCRC at [phone] [facility] RESEARCH OTHER*[id number] 04/12/2003 08/26/2009 Overview: Renamed Per Clinical Trials Billing Project. Pt is a participant in the [employer] (Consortium of Rheumatology Researchers [place]) national data collection study. For further information please call Dr Alban Del Real or Tata Meeks, RN, CCRC at [phone] ABN CERVIX NEC-ANTEPART 11/24/200205/31 Elderly multigravida with an tepartum condition or complication 10/10/2002 06/22/2017 Arthritis, rheumatoid 2017 DIABETES-ANTEPARTUM 06/23/19 18 documented as of this encounter (statuses as of 05/25/2023) Immunizations Name Administration Dates Next Due COVID-19 [...] (Menactra) 03/13/2018 Pneumococcal Conjugate Vacci ne, 20-valent ([id number]) 04/06/2022 Pneumococcal Polysaccharide PPV23 (Pneumovax) 03/16/2005 SARS-COV-2 [...] PM EDT Office Visit General Internal Medicine [facility] [address] [place] [address] Raven Agrawal MD 200 [facility] [place] [address] 07/22/2023 1:30 PM EDT [facility] [address] [place] [address] Kaushal Solis PA-C [address] [place] [address] 08/10/2023 1:00 PM EDT Office Visit [facility] Disorders Ctr [facility] [address] [place] [address] Patricia Guevara, [address] [place] [address] 10/13/2023 5:00 PM EDT Office Visit General Internal Medicine [facility] [address] [place] [address] Raven Agrawal MD [address] [facility] [place] [address] 12/24/2023 1:00 PM EDT Imaging Radiology [facility] 1st [facility] [address] [place] [address] Scheduled Procedures Name Priority Associated Diagnoses Date/Ti [...] Cancer Screening 09/25/2023 Pap Smear 09/25/2023 09/24/2020, 04/2 05/2017, 03/30/2014, Additional history exists B-12 10/06/2023 10/05/2022, 03/02, 07/04/2019, Additional history exists Mammogram 12/18/2023 12/17/2022, 06/2021, 10/09/2020, Additional history exists GFR 05/12/2024 05/13/2023, 08/2023, 04/20/2023, Additional history exists O2 ASSESSMENT COMPLETED IN PAST YEAR FOR COPD 05/18/2024 05/19/2023 Colonoscopy 02/03/2028 02/02/2018, 02/02/2018 Colorectal Cancer Screening 02/03/2028 Lipid Panel 04/20/2028 04/20/2023, 08/2022, 04/03/2022, Additional history exists DTaP,Tdap,and Td [...] filedocumented as of this encounter Care Teams Road Production General Manager Relationship Specialty Start Date End Date Raven Agrawal MD 200 [facility] [place] [address] PCP - General Internal Medicine 12/27/17 documented as of this encounter
--- OUTSIDE RECORDS SUMMARY | 2023-05-29 12:39 | External Medical Summary | Summary of Care ---
Author Name Unknown Organization [facility] Address [address] [facility] [place] [address] Phone [phone] Care Team Providers Care Manager Resource Name Role Phone Raven Agrawal MD Primary Care Provider Encounter Details Date Type Department Care Team (Late st Contact Info) Description 04/24/2023 Result Scan Unspecified Department <No scans attached> [...] as needed 30 g 1 04/14/2023 Active Hospital, Clinic, or Other Facility Administered [...] use disorder 06/09/2018 Elevated hemoglobin 04/04/2018 Overview: 04/1959-SlQlnp-kfv EPO, ferritin,Tsat, neg JAK2 mutn LVH (left ventricular hypert rophy) due to hypertensive disease, without heart failure 12/27/2017 Overview: 06/1752-iphw-dv97%, no WMabn,mild A Scl,gr 2 DD HTN, [...] Project. Pt is a participant in the [facility] (Consortium of [employer] [place]) national data collection study. For further information please call Dr Alban Del Real or Tata Meeks, RN, CCRC at [phone] [facility] RESEARCH OTHER*[id number] 04/12/2003 08/26/2009 Overview: Renamed Per Clinical Trials Billing Project. Pt is a participant in the [facility] (Consortium of [employer] [place]) national data collection study. For further information please call Dr Alban Del Real or Tata Meeks, RN, CCRC at [phone] ABN CERVIX NEC-ANTEPART 11/24/200205/31 Elderly multigravida with [...] (Menactra) 03/13/2018 Pneumococcal Conjugate Vacci ne, 20-valent ([id number]) 04/06/2022 SARS-COV-2 (COVID-19) Vaccine Unspecified 2021 Seasonal [...] Office Visit General Internal Medicine [place] [address] [place] [address] Raven Agrawal MD [address] [place] [address] 07/22/2023 1:30 PM EDT Office Visit Cardiology, [facility] [address] [facility] [place] [address] Kaushal Solis PA-C [address] [place] [address] 08/10/2023 1:00 PM EDT Office Visit Sleep Disorders Ctr [facility] [address] [facility] [place] [phone] Patricia Guevara DO [address] [place] [address] 10/13/2023 5:00 PM EDT Office Visit General Internal Medicine [facility] [address] [place] [address] Raven Agrawal MD 200 [facility] [place] [address] 12/24/2023 1:00 PM EDT Imaging Radiology [facility] 1st [facility] 132 [facility] [place] [address] Scheduled Procedures Name Priority Associated Diagnoses Date/Ti [...] 07/04/2019, Additional history exists Mammogram 12/18/2023 12/17/2022, 100 06/2021, 10/09/2020, Additional history exists GFR 05/12/2024 [...] Date/Time Associated Diagnosis Comments RADIOLOGY SCANNED RESULT 04/30/2023 RADIOLOGY SCANNED RESULT 04/30/2023 RADIOLOGY SCANNED RESULT 04/28/2023 RADIOLOGY SCANNED RESULT 04/27/2023 RADIOLOGY SCANNED RESULT 04/24/2023 RADIOLOGY SCANNED RESULT 04/24/2023 documented in this encounter Results * RADIOLOGY SCANNED RESULT (04/30/2023) 04/30/2023 No Physician Data Unknown [facility] * RADIOLOGY SCANNED RESULT (04/30/2023) 04/30/2023 No Physician Data Unknown [facility] * RADIOLOGY SCANNED RESULT (04/28/2023) 04/28/2023 No Physician Data Unknown [facility] RAD [facility]OLOG[facility] * RADIOLOGY SCANNED RESULT (04/27/2023) 04/27/2023 No Physician Data Unknown [facility]OLOG[facility] * RADIOLOGY SCANNED RESULT (04/24/2023) 04/24/2023 No Physician Data Unknown [facility] RAD [facility] * RADIOLOGY SCANNED RESULT (04/24/2023) 04/24/2023 No Physician Data Unknown [facility] RAD [facility] documented in this encounter Care Teams Manager Resource Relationship Specialty Start Date End Date Raven Agrawal MD 200 [place] [address] PCP - General Internal Medicine 12/27/17 documented as of this encounter
--- OUTSIDE RECORDS SUMMARY | 2023-05-29 12:39 | External Medical Summary | Summary of Care ---
Author Name Unknown Organization [facility] Address [address] [facility] [place] [address] Phone [phone] Care Team Providers Care Player Development Manager Name Role Phone Raven Agrawal MD Primary Care Provider [phone] Encounter Details Date Type Department Care Team (Late st Contact Info) Description 05/24/2023 Telephone Hematology/Oncology [facility] [place] 200 [facility] [place] [address] Fatimah Quintero CRNP 400 [facility] [place] [address] Allergies No known [...] depressive disorder with single episode, in remission ([facility]),Type 2 diabetes mellitus with diabetic neuropathy, without long-term current use of insulin ([facility]),Cervical spinal stenosis,Cervical spondylosis TAKE 1 [...] needed for Pain, Mild. 0 05/16/2023 Active [employer] Verio In Vitro Strip (Glucose Blood)Indications: Type 2 diabetes mellitus with diabetic neuropathy, without long-term current use of insulin ([facility]) Use upto twice daily E11.9 100 Strip 11 05/19/2023 Active [employer] [place] Verio w/Device KitIndications:Typ e 2 diabetes mellitus with diabetic neuropathy, without long-term current use of insulin ([facility]) Use upto twice daily E11.9 1 Kit 0 05/19/2023 Active needmadeTouch UltraSoft LancetsIndications :Type 2 diabetes mellitus with diabetic neuropathy, without long-term current use of insulin ([facility]) Use upto twice daily E11.9 100 Each 1 05/19/2023 Active Lisinopril 10 MG Oral Tablet (Prinivil)Indicati ons:LVH (left ventricular hypertrophy) due to hypertensive disease, without heart failure,Type 2 diabetes mellitus with hemoglobin A1c goal of less than 7.0% ([facility]),HTN, goal below 130/80 Take 1 [...] use disorder 06/09/2018 Elevated hemoglobin 04/04/2018 Overview: 04/1924-GkBfjj-lnz EPO, ferritin,Tsat, neg JAK2 mutn LVH (left ventricular hypert rophy) due to hypertensive disease, without heart failure 12/27/2017 Overview: 06/1701-obma-cn26%, no WMabn,mild A Scl,gr 2 DD HTN, [...] Real or Tata Meeks, RN, CCRC at [phone] [facility] RESEARCH OTHER*[id number] 04/12/2003 08/26/2009 Overview: Renamed Per Clinical Trials Billing Project. Pt is a participant in the [employer] (Consortium of Rhe[employer] Researchers [place]) national data collection study. For further information please call Dr Alban Del Real or Tata Meeks, RN, CCRC at [phone] ABN CERVIX NEC-ANTEPART 11/24/200205/31 Elderly multigravida with [...] (Menactra) 03/13/2018 Pneumococcal Conjugate Vacci ne, 20-valent ([id number]) 04/06/2022 Pneumococcal Polysaccharide PPV23 (Pneumovax) 03/16/2005 SARS-COV-2 [...] PM EDT Office Visit General Internal Medicine [facility] [address] [place] [address] Raven Agrawal MD 200 [facility] [place] [address] 07/22/2023 1:30 PM EDT [facility] [address] [place] [address] Kaushal Solis PA-C [address] [place] [address] 08/10/2023 1:00 PM EDT Office Visit Sleep Disorders Ctr [facility] [address] [place] [phone] Patricia Guevara, [address] [place] [address] 10/13/2023 5:00 PM EDT Office Visit General Internal Medicine [facility] [address] [place] [address] Raven Agrawal MD [address] [facility] [place] [address] 12/24/2023 1:00 PM EDT Imaging Radiology [facility] 1st [facility] [address] [place] [address] Scheduled Procedures Name Priority Associated Diagnoses Date/Ti [...] filedocumented as of this encounter Care Teams Player Development Manager Relationship Specialty Start Date End Date Raven Agrawal MD 200 [facility] [place] [address] PCP - General Internal Medicine 12/27/17 documented as of this encounter
--- OUTSIDE RECORDS SUMMARY | 2023-05-29 12:39 | External Medical Summary | Summary of Care ---
Author Name Unknown Organization [facility] Address [address] [facility] [place] [address] Phone [phone] Care Team Providers Care Public Interviewer Name Role Phone Raven Agrawal MD Primary Care Provider [phone] Encounter Details Date Type Department Care Team (Late st Contact Info) Description 05/24/2023 Telephone Hematology/Oncology [facility] [place] 200 [facility] [place] [address] Fatimah Quintero CRNP 400 [facility] [place] [address] Allergies No known [...] depressive disorder with single episode, in remission ([facility]),Type 2 diabetes mellitus with diabetic neuropathy, without long-term current use of insulin ([facility]),Cervical spinal stenosis,Cervical spondylosis TAKE 1 CAPSULE [...] needed for Pain, Mild. 0 05/16/2023 Active [employer] Verio In Vitro Strip (Glucose Blood)Indications: Type 2 diabetes mellitus with diabetic neuropathy, without long-term current use of insulin ([facility]) Use upto twice daily E11.9 100 Strip 11 05/19/2023 Active [employer] Verio w/Device KitIndications:Typ e 2 diabetes mellitus with diabetic neuropathy, without long-term current use of insulin ([facility]) Use upto twice daily E11.9 1 Kit 0 05/19/2023 Active KurtosysTouch UltraSoft LancetsIndications :Type 2 diabetes mellitus with diabetic neuropathy, without long-term current use of insulin ([facility]) Use upto twice daily E11.9 100 Each 1 05/19/2023 Active Lisinopril 10 MG Oral Tablet (Prinivil)Indicati ons:LVH (left ventricular hypertrophy) due to hypertensive disease, without heart failure,Type 2 diabetes mellitus with hemoglobin A1c goal of less than 7.0% ([facility]),HTN, goal below 130/80 Take 1 Tablet [...] use disorder 06/09/2018 Elevated hemoglobin 04/04/2018 Overview: 04/1913-XaQenl-chc EPO, ferritin,Tsat, neg JAK2 mutn LVH (left ventricular hypert rophy) due to hypertensive disease, without heart failure 12/27/2017 Overview: 06/1773-wjzq-ka99%, no WMabn,mild A Scl,gr 2 DD HTN, [...] Real or Tata Meeks, RN, CCRC at [phone] [facility] RESEARCH OTHER*[id number] 04/12/2003 08/26/2009 Overview: Renamed Per Clinical Trials Billing Project. Pt is a participant in the [employer] (Consortium of Rhe[employer]ology Researchers [place]) national data collection study. For further information please call Dr Alban Del Real or Tata Meeks, RN, CCRC at [phone] ABN CERVIX NEC-ANTEPART 11/24/200205/31 Elderly multigravida with [...] (Menactra) 03/13/2018 Pneumococcal Conjugate Vacci ne, 20-valent ([id number]) 04/06/2022 Pneumococcal Polysaccharide PPV23 (Pneumovax) 03/16/2005 SARS-COV-2 [...] PM EDT Office Visit General Internal Medicine [facility] [address] [place] [address] Raven Agrawal MD [address] [place] [address] 07/22/2023 1:30 PM EDT Office Visit Cardiology, [facility] [address] [place] [address] Kaushal Solis PA-C [address] [place] [address] 08/10/2023 1:00 PM EDT Office Visit Sleep Disorders Ctr [facility] [address] [place] [phone] Patricia Guevara, DO [address] [place] [address] 10/13/2023 5:00 PM EDT Office Visit General Internal Medicine [facility] [address] [place] [address] Raven Agrawal MD [address] [place] [address] 12/24/2023 1:00 PM EDT Imaging Radiology [address] [place] [address] Scheduled Procedures Name Priority Associated Diagnoses Date/Ti [...] 03/27/2020, Additional history exists HbA1c 04/07/2023 10/05/2022, 04/2022, 10/21/2021, Additional history exists Cervical Cancer Screening 09/25/2023 Pap Smear 09/25/2023 09/24/2020, 05/31, 03/30/2014, Additional history exists B-12 10/06/2023 10/05/2022, 03/02, 07/04/2019, Additional history exists Mammogram 12/18/2023 12/17/2022, 06/2021, 10/09/2020, Additional history exists GFR 05/12/2024 05/13/2023, 0 08/2023, 04/20/2023, Additional history exists O2 ASSESSMENT [...] filedocumented as of this encounter Care Teams Public Interviewer Relationship Specialty Start Date End Date Raven Agrawal MD [address] [place] [address] PCP - General Internal Medicine 12/27/17 documented as of this encounter
--- OUTSIDE RECORDS SUMMARY | 2023-05-29 12:39 | External Medical Summary | Summary of Care ---
Author Name Unknown Organization [facility] Address [address] [place] [address] Phone [phone] Care Team Providers Care Employment Manager Name Role Phone Raven Agrawal MD Primary Care Provider [phone] Reason for Visit * Reason Comments Outpatient Testing Encounter Details Date Type Department Care Team (Late st Contact Info) Description 05/26/2023 1:50 PM EDT Laboratory Laboratory, [facility] [address] [facility] [place] [address] Atul, Specimen Drop Off [facility] [address] [place] [address] Dysuria; Urinary frequency; Foul smelling urine Allergies No known active allergiesdocumented as of [...] depressive disorder with single episode, in remission ([facility]),Type 2 diabetes mellitus with diabetic neuropathy, without long-term current use of insulin ([facility]),Cervical spinal stenosis,Cervical spondylosis TAKE 1 CAPSULE [...] needed for Pain, Mild. 0 05/16/2023 Active [employer]o [employer] Verio In Vitro Strip (Glucose Blood)Indications: Type 2 diabetes mellitus with diabetic neuropathy, without long-term current use of insulin ([facility]) Use upto twice daily E11.9 100 Strip 11 05/19/2023 Active Glo BagsTouch Verio w/Device KitIndications:Typ e 2 diabetes mellitus with diabetic neuropathy, without long-term current use of insulin ([facility]) Use upto twice daily E11.9 1 Kit 0 05/19/2023 Active Glo BagsTouch UltraSoft LancetsIndications :Type 2 diabetes mellitus with diabetic neuropathy, without long-term current use of insulin ([facility]) Use upto twice daily E11.9 100 Each 1 05/19/2023 Active Lisinopril 10 MG Oral Tablet (Prinivil)Indicati ons:LVH (left ventricular hypertrophy) due to hypertensive disease, without heart failure,Type 2 diabetes mellitus with hemoglobin A1c goal of less than 7.0% ([facility]),HTN, goal below 130/80 Take 1 Tablet [...] needed for Pain, Moderate. 0 05/19/2023 Active Sulfamethoxazole-T rimethoprim 800-160 MG Oral Tablet (Bactrim DS)Indications:Dys uria,Urinary frequency,Foul smelling urine Take 1 Tablet by mouth in the morning and 1 Tablet before bedtime. Do all this for 3 days. Until gone. 6 Tablet 0 05/26/2023 Active Hospital, Clinic, or Other Facility Administered [...] use disorder 06/09/2018 Elevated hemoglobin 04/04/2018 Overview: 04/1934-SsAazn-rln EPO, ferritin,Tsat, neg JAK2 mutn LVH (left ventricular hypert rophy) due to hypertensive disease, without heart failure 12/27/2017 Overview: 06/1737-grhx-cl90%, no WMabn,mild A Scl,gr 2 DD HTN, [...] Real or Tata Meeks, RN, CCRC at [phone] [facility] RESEARCH OTHER*[id number] 04/12/2003 08/26/2009 Overview: Renamed Per Clinical Trials Billing Project. Pt is a participant in the [employer] (Consortium of Rheumatology Researchers [place]) national data collection study. For further information please call Dr Alban Del Real or Tata Meeks, RN, CCRC at [phone] ABN CERVIX NEC-ANTEPART 11/24/200205/31 Elderly multigravida with [...] (Menactra) 03/13/2018 Pneumococcal Conjugate Vacci ne, 20-valent ([id number]) 04/06/2022 SARS-COV-2 (COVID-19) Vaccine Unspecified 2021 Seasonal [...] PM EDT Office Visit General Internal Medicine [facility] [address] [place] [address] Raven Agrawal MD [address] [place] [address] 07/22/2023 1:30 PM EDT Office Visit Cardiology, [facility] [address] [place] [address] Kaushal Solis PA-Vanessa [address] [place] [address] 08/10/2023 1:00 PM EDT Office Visit Sleep Disorders Ctr [facility] [address] [place] [phone] Patricia Guevara DO 132 [place] [address] 10/13/2023 5:00 PM EDT Office Visit General Internal Medicine [facility] [address] [place] [address] Raven Agrawal MD [address] [place], [place] [address] 12/24/2023 1:00 PM EDT Imaging Radiology [facility] 1st [facility] [place] [address] [place] [address] Pending Results Name Type Priority Associated Diagnoses Date /Time URINALYSIS, REFLEX TO CULTURE (NOT FOR NEUTROPENIC PATIENTS) Lab STAT Dysuria Urinary frequency Foul smelling urine 05/26/2023 1:30 PM EDT URINALYSIS, REFLEX TO CULTURE (CUP ONLY) Lab STAT Dysuria Urinary frequency Foul smelling urine 05/26/2023 1:30 PM EDT CULTURE, URINE, QUANTITATIVE Lab STAT Dysuria Urinary frequency Foul smelling urine 05/26/2023 1:30 PM EDT Scheduled Procedures Name Priority Associated Diagnoses Date/Ti [...] Additional history exists GFR 05/12/2024 05/13/2023, 08/2023, 05/04/2023, Additional history exists O2 ASSESSMENT [...] Procedure Name Priority Date/Time Associated Diagnosis Comments URINALYSIS, REFLEX TO CULTURE STAT 05/26/2023 1:30 PM EDT Dysuria Urinary frequency Foul smelling urine documented in this encounter Results * (ABNORMAL) URINALYSIS, REFLEX TO CULTURE (05/26/2023 1:30 PM EDT) Color, Urine Yellow Light Yellow, Yellow, Dark Yellow 05/26/2023 2:01 PM EDT LAB[facility] [place] 57-10 Clarity, Urine Clear Clear 05/26/2023 2:01 PM EDT [facility] [place] [facility]10 Glucose, Urine Negative Negative mg/dL 05/26/2023 2:01 PM EDT [facility] [place] [facility] 57-10 Bilirubin, Urine Negative Negative 05/26/2023 2:01 PM EDT [facility] [place] 57-10 Ketone, Urine Negative Negative mg/dL 05/26/2023 2:01 PM EDT [facility] [place] 57-10 Specific [place], Urine 1.015 1.003 - 1.030 05/26/2023 2:01 PM EDT [facility] [place] [facility] 57-10 Blood, Urine Negative Negative 05/26/2023 2:01 PM EDT [facility] [place] [facility]-10 pH, Urine 6.0 5.0 - 7.5 Units 05/26/2023 2:01 PM EDT [facility] [place] [facility]10 Protein, Urine Negative Negative mg/dL 05/26/2023 2:01 PM EDT [facility] [place] 57[facility]10 Urobilinogen, Urine 0.2 0.2, 1.0 mg/dL 05/26/2023 2:01 PM EDT [facility] [place] [facility] 57-10 Nitrite, Urine Negative Negative 05/26/2023 2:01 PM EDT [facility] 57-10 Esterase, Urine Small(A) Negative 05/26/2023 2:01 PM EDT [facility] [place] 57[facility]10 RBC, Urine 0-2 0 - 2 /HPF 05/26/2023 2:01 PM EDT [facility] [place] [facility]10 WBC, Urine 30-49(A) 0 - 2 /HPF 05/26/2023 2:01 PM EDT [facility] [place] [facility] 57-10 Bacteria, Urine 26-50(A) 0 - 25 /HPF 05/26/2023 2:01 PM EDT [facility] 57-10 Culture, Urine 05/26/2023 2:01 PM EDT [facility] [place] [facility] 57-10 Comment:Quantitative urine c ulture to be performed Urine Urine specimen obtained by clean catch procedure / Unknown Non-blood Collection / Unknown 05/26/2023 1:30 PM EDT 05/26/2023 1:50 PM EDT Raven Agrawal MD LAB URINE ORDERABLES LAB[facility]ATORY [place] 57-10 132 [facility] [place] [address] documented in this encounter Visit Diagnoses Diagnosis Dysuria Urinary frequency Foul smelling urine Other nonspecific finding on examination of urine documented in this encounter Care Teams Employment Manager Relationship Specialty Start Date End Date Raven Agrawal MD 200 [facility] [place] [address] PCP - General Internal Medicine 12/27/17 documented as of this encounter
--- OUTSIDE RECORDS SUMMARY | 2023-05-29 12:39 | External Medical Summary | Summary of Care ---
Author Name Unknown Organization [facility] Address [address] [place] [place] [address] Phone [phone] Care Team Providers Care Wildlife Biology Technician Name Role Phone Raven Agrawal MD Primary Care Provider [phone] Encounter Details Date Type Department Care Team (Late st Contact Info) Description 05/26/2023 Orders Only General Internal Medicine [facility] [place] [address] [facility] [place] [address] Raven Agrawal MD 200 [facility] [place] [address] Allergies No known active allergiesdocumented as of [...] neuropathy, without long-term current use of insulin ([facility]) TAKE 1 TABLET IN MORNING, 1.5 TABLET AT NOON AND 1.5 TABLET BEFORE BEDTIME 360 Tablet 1 04/14/2023 Active Ketoconazole 2 % External CreamIndications:S eborrheic dermatitis Apply to affected areas twice daily-nasolabial folds x2-4 wks, then as needed 30 g 1 04/14/2023 Active DULoxetine HCl 60 MG Oral Capsule Delayed Release Particles (Cymbalta)Indicati ons:Major depressive disorder with single episode, in remission ([facility]),Type 2 diabetes mellitus with diabetic neuropathy, without long-term current use of insulin ([facility]),Cervical spinal stenosis,Cervical spondylosis TAKE 1 CAPSULE BY [...] needed for Pain, Mild. 0 05/16/2023 Active [employer] Verio In Vitro Strip (Glucose Blood)Indications: Type 2 diabetes mellitus with diabetic neuropathy, without long-term current use of insulin ([facility]) Use upto twice daily E11.9 100 Strip 11 05/19/2023 Active [employer] Verio w/Device KitIndications:Typ e 2 diabetes mellitus with diabetic neuropathy, without long-term current use of insulin ([facility]) Use upto twice daily E11.9 1 Kit 0 05/19/2023 Active [employer] UltraSoft LancetsIndications :Type 2 diabetes mellitus with diabetic neuropathy, without long-term current use of insulin ([facility]) Use upto twice daily E11.9 100 Each 1 05/19/2023 Active Lisinopril 10 MG Oral Tablet (Prinivil)Indicati ons:LVH (left ventricular hypertrophy) due to hypertensive disease, without heart failure,Type 2 diabetes mellitus with hemoglobin A1c goal of less than 7.0% ([facility]),HTN, goal below 130/80 Take 1 Tablet by [...] use disorder 06/09/2018 Elevated hemoglobin 04/04/2018 Overview: 04/1975-LdWthc-vio EPO, ferritin,Tsat, neg JAK2 mutn LVH (left ventricular hypert rophy) due to hypertensive disease, without heart failure 12/27/2017 Overview: 06/1739-izjk-dn98%, no WMabn,mild A Scl,gr 2 DD HTN, [...] Real or Tata Meeks, RN, CCRC at [phone] [facility] RESEARCH OTHER*[id number] 04/12/2003 08/26/2009 Overview: Renamed Per Clinical Trials Billing Project. Pt is a participant in the [employer] (Consortium of Rheumatology Researchers of [place]) national data collection study. For further information please call Dr Alban Del Real or Tata Meeks, RN, CCRC at [phone] ABN CERVIX NEC-ANTEPART 11/24/200205/31 Elderly multigravida with [...] (Menactra) 03/13/2018 Pneumococcal Conjugate Vacci ne, 20-valent ([id number]) 04/06/2022 SARS-COV-2 (COVID-19) Vaccine Unspecified 2021 Seasonal [...] PM EDT Office Visit General Internal Medicine [facility] [address] [place] [address] Raven Agrawal MD [address] [place] [address] 07/22/2023 1:30 PM EDT [facility] [place] [address] Kaushal Solis PA-C [address] [place] [address] 08/10/2023 1:00 PM EDT Office Visit Sleep Disorders Ctr [facility] 132 [facility] [place] [phone] Patricia Guevara DO [address] [place] [address] 10/13/2023 5:00 PM EDT Office Visit [facility] [address] [place] [address] [address] [address] Raven Agrawal MD [address] [place] [address] [address] 12/24/2023 1:00 PM EDT Imaging Radiology [address] 132 [facility] [place] [address] Scheduled Procedures Name Priority Associated Diagnoses Date/Ti [...] history exists GFR 05/12/2024 05/13/2023, 03/0 08/2023, 04/20/2023, Additional history exists O2 ASSESSMENT [...] Procedure Name Priority Date/Time Associated Diagnosis Comments XR CHEST 1 VIEW Routine 05/03/2023 documented in this encounter Results * XR CHEST 1 VIEW (05/03/2023) Anatomical Region Laterality Modality Chest Other 05/03/2023 History Per Patient RADIOLOGY (RAD GENER AL) documented in this encounter Care Teams Wildlife Biology Technician Relationship Specialty Start Date End Date Raven Agrawal MD 200 [facility] [place] [address] PCP - General Internal Medicine 12/27/17 documented as of this encounter
--- OUTSIDE RECORDS SUMMARY | 2023-05-29 12:39 | External Medical Summary ---
Author Name Unknown Address Unknown Organization [id number]:[facility] [place] [address] [address] [facility] [address] Laboratory Report Ordering Provider Test Date Status DUC KRISHNAMURTHY 05/26/2023 13:30:00 Final <10,000 colonies/ml mixed no rmal ada Observation Date Value Abnormality Reference (Units ) Status Bacteria identified in Specimen by Culture 05/26/2023 13:30:00 [id number]^KLEBSIELL A PNEUMONIAE Abnormal Final 10,000 to 100,000 colonies/m L Klebsiella pneumoniae Performing Location [facility] [address] [facility] [address] [facility] [address] Ordering Provider Test Date Status DUC KRISHNAMURTHY 05/26/2023 13:30:00 Final Observation Date Value Abnormality Reference (Units ) Status Ampicillin + Sulbactam 05/26/2023 13:30:00 4 Susceptible Final Cefazolin 05/26/2023 13:30:00 <=4 Susceptible Final Cefepime susceptibility 05/26/2023 13:30:00 <=1 Susceptible Final Ceftriaxone suceptibility 05/26/2023 13:30:00 <=1 Susceptible Final Ciprofloxacin 05/26/2023 13:30:00 <=0.25 Susceptible Final Due to serious side effects, the FDA has advised against using Ciprofloxacin to treat uncomplicated UTIs and respiratory tract infections unless there are no alternative treatment options. Gentamicin susceptibility 05/26/2023 13:30:00 <=1 Susc eptible Final Nitrofurantoin susceptibility 05/26/2023 13:30:00 64 Intermediate Final Piperacillin + Tazobactamsusceptibility 05/26/2023 13:30:00 <=4 Susceptible Final TMP-SMZ susceptibility 05/26/2023 13:30:00 <=20 Suscept ible Final Test: Culture, Urine, Quanti tative
Specimen Source: Urine, Clean Catch
Specimen Type: Urine
Specimen Date: 05/26/2023 1:30 PM
Result Date: 05/28/2023 2:46 PM
Result Status: Final result
Abnormal: Yes
Resulting Lab: [facility]
[address]
[facility] [address]

CULTURE

10,000 to 100,000 colonies/mL Klebsiella pneumoniae (Abnormal)

<10,000 colonies/ml mixed normal ada

SUSCEPTIBILITY

Klebsiella
pneumoniae
METHOD MICROBROTH DILUTIONS

AMPICILLIN/SULBACTAM 4 Susceptible
CEFAZOLIN <=4 Susceptible
CEFEPIME <=1 Susceptible
CEFTRIAXONE <=1 Susceptible
CIPROFLOXACIN <=0.25 Susceptible
GENTAMICIN <=1 Susceptible
NITROFURANTOIN 64 Intermediate
PIPERACILLIN TAZOBACTAM <=4 Susceptible
TRIMETH/SULFAMETHOXAZOLE <=20 Susceptible

null Performing Location [facility] [place] [address] [facility] [address]
--- OUTSIDE RECORDS SUMMARY | 2023-05-29 12:39 | External Medical Summary ---
Author Name Unknown Address Unknown Organization [id number]:[facility] - [address] [place] [address] Laboratory Report Ordering Provider Test Date Status DUC KRISHNAMURTHY 05/26/2023 13:30:00 Final Observation Date Value Abnormality Reference (Units ) Status Color of Urine by Auto 05/26/2023 13:30:00 Yellow Light Yellow, Yellow, Dark Yellow Final Clarity, Urine 05/26/2023 13:30:00 Clear Clear Final Glucose [Mass/volume] in Urine by Automated test strip 05/26/2023 13:30:00 Negative Negative (mg/dL) Final Bilirubin.total [Presence] in Urine by Automated test strip 05/26/2023 13:30:00 Negative Negative Final Ketones [Mass/volume] in Urine by Automated test strip 05/26/2023 13:30:00 Negative Negative (mg/dL) Final Specific gravity, Urine 05/26/2023 13:30:00 1.015 1.003-1.030 Final Hemoglobin [Presence] in Urine by Automated test strip 05/26/2023 13:30:00 Negative Negative Final pH, Urine 05/26/2023 13:30:00 6.0 5.0-7.5 (Units) Final Protein [Mass/volume] in Urine by Automated test strip 05/26/2023 13:30:00 Negative Negative (mg/dL) Final Urobilinogen [Mass/volume] in Urine by Automated test strip 05/26/2023 13:30:00 0.2 0.2, 1.0 (mg/dL) Final Nitrite [Presence] in Urine by Automated test strip 05/26/2023 13:30:00 Negative Negative Final Leukocyte esterase [Presence] in Urine by Automated test strip 05/26/2023 13:30:00 Small Abnormal Negative Final RBC, Urine 05/26/2023 13:30:00 0-2 0-2 (/HPF) Final WBC, Urine 05/26/2023 13:30:00 30-49 Abnormal 0-2 (/HPF) Final Bacteria [#/area] in Urine sediment by Microscopy high power field 05/26/2023 13:30:00 26-50 Abnormal 0-25 (/HPF) Final CULTURE, URINE - [facility] 05/26/2023 13:30:00 Final Quantitative urine culture t o be performed Performing Location [facility] - [address] [place] [address]
--- OUTSIDE RECORDS SUMMARY | 2023-05-29 12:39 | External Medical Summary | Summary of Care ---
Author Name Unknown Organization [facility] Address [address] [facility] [place] [address] Phone [phone] Care Team Providers Care Machinist Wood Name Role Phone Raven Agrawal MD Primary Care Provider [phone] Encounter Details Date Type Department Care Team (Late st Contact Info) Description 05/01/2023 Result Scan Unspecified Department <No scans attached> [...] enteric coated 81 MG TBECIndications:Mi xed dyslipidemia,Subcl briec artery stenosis, right (HCC) Take 1 Tab [...] use disorder 06/09/2018 Elevated hemoglobin 04/04/2018 Overview: 04/1996-YiYkxk-atf EPO, ferritin,Tsat, neg JAK2 mutn LVH (left ventricular hypert rophy) due to hypertensive disease, without heart failure 12/27/2017 Overview: 06/1750-qalk-wq07%, no WMabn,mild A Scl,gr 2 DD HTN, [...] Project. Pt is a participant in the [facility] (Consortium of Rheumatology Researchers of [place]) national data collection study. For further information please call Dr Alban Del Real or Tata Meeks, RN, CCRC at [phone] [facility] RESEARCH OTHER*[id number] 04/12/2003 08/26/2009 Overview: Renamed Per Clinical Trials Billing Project. Pt is a participant in the [facility] (Consortium of Rheumatology Researchers of [place]) national data collection study. For further information please call Dr Alban Del Real or Tata Meeks, RN, CCRC at [phone] ABN CERVIX NEC-ANTEPART 11/24/200205/31 Elderly multigravida with [...] (Menactra) 03/13/2018 Pneumococcal Conjugate Vacci ne, 20-valent ([id number]) 04/06/2022 SARS-COV-2 (COVID-19) Vaccine Unspecified 2021 Seasonal [...] Office Visit General Internal Medicine [facility] [place] [address] [place] [address] Raven Agrawal MD [address] [place] [address] 07/22/2023 1:30 PM EDT Office Visit Cardiology, [facility] [address] [facility] [place] [address] Kaushal Solis PA-C [address] [place] [address] 08/10/2023 1:00 PM EDT Office Visit Sleep Disorders Ctr [facility] [address] [place] [phone] Patricia Guevara DO [address] [place] [address] 10/13/2023 5:00 PM EDT Office Visit General Internal Medicine [facility] [address] [place] [address] Raven Agrawal MD 200 [facility] [place] [address] 12/24/2023 1:00 PM EDT Imaging Radiology [facility] [address] [facility] 132 [facility] [place] [address] Scheduled Procedures Name Priority Associated Diagnoses Date/Ti [...] Date/Time Associated Diagnosis Comments RADIOLOGY SCANNED RESULT 05/01/2023 documented in this encounter Results * RADIOLOGY SCANNED RESULT (05/01/2023) 05/01/2023 No Physician Data Unknown DIAGNOSTIC RAD IOLOGY SERVICES documented in this encounter Care Teams Machinist Wood Relationship Specialty Start Date End Date Raven Agrawal MD 200 [facility] [place] [address] PCP - General Internal Medicine 12/27/17 documented as of this encounter
--- OUTSIDE RECORDS SUMMARY | 2023-05-29 12:40 | External Medical Summary ---
Author Name Unknown Address Unknown Organization K09:[facility] [place] [address] Laboratory Report Ordering Provider Test Date Status ANGEL SMALL 05/06/2023 06:30:28 Final Observation Date Value Abnormality Reference (Units ) Status BUN 05/06/2023 06:30:28 8 6-20 (mg/dL) Final Creatinine 05/06/2023 06:30:28 0.8 0.5-1.0 (mg/dL) Final Glomerular filtration rate/1.73 sq M.predicted [Volume Rate/Area] in Serum, Plasma or Blood by Creatinine-based formula (CKD-EPI) 05/06/2023 06:30:28 89 >=60 (mL/min) Final eGFR is calculated based on the CKD-EPI 2020 equation SODIUM 05/06/2023 06:30:28 143 135-146 (m mol/L) Final Potassium 05/06/2023 06:30:28 4.1 3.5-5.1 (m mol/L) Final Cl 05/06/2023 06:30:28 106 98-107 (mm ol/L) Final CO2 05/06/2023 06:30:28 28 22-32 (mmo l/L) Final Anion gap 05/06/2023 06:30:28 9 7-15 (mmol /L) Final Glucose 05/06/2023 06:30:28 107 70-120 (mg /dL) Final Calcium 05/06/2023 06:30:28 9.3 8.4-10.2 ( mg/dL) Final Performing Location [facility] [place] [address]
--- OUTSIDE RECORDS SUMMARY | 2023-05-29 12:40 | External Medical Summary | Summary of Care ---
Author Name Unknown Organization [facility] Address [address] [facility] [address] Phone [phone] Care Team Providers Care Event Executive Name Role Phone Raven Agrawal MD Primary Care Provider [phone] Encounter Details Date Type Department Care Team (Late st Contact Info) Description 05/24/2023 Telephone Hematology/Oncology [facility] [place] [place] 200 [facility] [place] [phone] Fatimah Quintero CRNP [address] [facility] [place] [address] Allergies No known active allergiesdocumented as of this encounter (statuses as of 05/24/2023) Medications Medication Sig Dispensed Refills Start Date [...] depressive disorder with single episode, in remission ([facility]),Type 2 diabetes mellitus with diabetic neuropathy, without long-term current use of insulin ([facility]),Cervical spinal stenosis,Cervical spondylosis TAKE 1 [...] needed for Pain, Mild. 0 05/16/2023 Active [employer] Verio In Vitro Strip (Glucose Blood)Indications: Type 2 diabetes mellitus with diabetic neuropathy, without long-term current use of insulin ([facility]) Use upto twice daily E11.9 100 Strip 11 05/19/2023 Active [employer] Verio w/Device KitIndications:Typ e 2 diabetes mellitus with diabetic neuropathy, without long-term current use of insulin ([facility]) Use upto twice daily E11.9 1 Kit 0 05/19/2023 Active [employer] UltraSoft LancetsIndications :Type 2 diabetes mellitus with diabetic neuropathy, without long-term current use of insulin ([facility]) Use upto twice daily E11.9 100 Each 1 05/19/2023 Active Lisinopril 10 MG Oral Tablet (Prinivil)Indicati ons:LVH (left ventricular hypertrophy) due to hypertensive disease, without heart failure,Type 2 diabetes mellitus with hemoglobin A1c goal of less than 7.0% ([facility]),HTN, goal below 130/80 Take 1 [...] as of this encounter (statuses as of 05/24/2023) Active Problems Problem Noted Date Diagnosed Date Type 2 diabetes mellitus wit h diabetic neuropathy, without long-term current use of insulin 10/06/2022 Mixed dyslipidemia 10/06/2022 COPD, group B, by GOLD 2017 classification 06/08 Overview: Per COPD GOLD Classification Granulomatous lung disease 06/27/2021 Dense breast tissue on mammogram 01/06/2019 Overview: 01/17; Tobacco use disorder 06/09/2018 Elevated hemoglobin 04/04/2018 Overview: 04/1965-VpEwsb-nyu EPO, ferritin,Tsat, neg JAK2 mutn LVH (left ventricular hypert rophy) due to hypertensive disease, without heart failure 12/27/2017 Overview: 06/1798-huha-fy47%, no WMabn,mild A Scl,gr 2 DD HTN, [...] as of this encounter (statuses as of 05/24/2023) Resolved Problems Problem Noted Date Diagnosed Date [...] Real or Tata Meeks, RN, CCRC at [phone] [facility] RESEARCH OTHER*[id number] 04/12/2003 08/26/2009 Overview: Renamed Per Clinical Trials Billing Project. Pt is a participant in the [employer] (Consortium of Rheumatology Researchers of [place]) national data collection study. For further information please call Dr Alban Del Real or Tata Meeks, RN, CCRC at [phone] ABN CERVIX NEC-ANTEPART 11/24/200205/31 Elderly multigravida with an tepartum condition or complication 10/10/2002 06/22/2017 Arthritis, rheumatoid 2017 DIABETES-ANTEPARTUM 06/23/19 18 documented as of this encounter (statuses as of 05/24/2023) Immunizations Name Administration Dates Next Due COVID-19 [...] (Menactra) 03/13/2018 Pneumococcal Conjugate Vacci ne, 20-valent ([id number]) 04/06/2022 SARS-COV-2 (COVID-19) Vaccine Unspecified 2021 Seasonal [...] encounter Miscellaneous Notes * Telephone Encounter - Consuelo Mariee MED ASSIST - 05/24/2023 3:33 PM EDT Pt did not show for appt on 05/24/2023 with Fatimah Please call and reschedule documented in this encounter Plan of Treatment Upcoming Encounters Date Type Department Care Team (Late st Contact Info) Description 07/21/2023 5:00 PM EDT Office Visit General Internal Medicine [facility] [address] [place] [address] Raven Agrawal MD [address] [place] [address] [address] 07/22/2023 1:30 PM EDT [facility] [address] [place] [address] Kaushal Solis PABreannaC [address] [place] [address] 08/10/2023 1:00 PM EDT Office Visit Sleep Disorders Ctr [facility] [address] [place] [phone] Patricia Guevara DO [address] [place] [address] 10/13/2023 5:00 PM EDT Office Visit General Internal Medicine [facility] [address] [place] [address] Raven Agrawal MD 200 [place] [place] [address] 12/24/2023 1:00 PM EDT Imaging Radiology [facility] 1st [facility] [address] [place] [address] Scheduled Procedures Name Priority Associated Diagnoses Date/Ti [...] 07/04/2019, Additional history exists Mammogram 12/18/2023 12/17/2022, 0 06/2021, 10/09/2020, Additional history exists GFR 05/12/2024 [...] filedocumented as of this encounter Care Teams Event Executive Relationship Specialty Start Date End Date Raven Agrawal MD [address] [place] [address] PCP - General Internal Medicine 12/27/17 documented as of this encounter
--- OUTSIDE RECORDS SUMMARY | 2023-05-29 12:40 | External Medical Summary | Summary of Care ---
Author Name Unknown Organization [facility] Address [address] [facility] [address] Phone [phone] Care Team Providers Care Owner Name Role Phone Raven Agrawal MD Primary Care Provider [phone] Reason for Visit * Reason Onset Date Comments Fax 04/28/2023 Encounter Details Date Type Department Care Team (Late st Contact Info) Description 04/28/2023 Telephone General Internal Medicine [facility] [place] [address] [facility] [place] [id number] Raven Agrawal MD [address] [facility] [place] [address] Fax Allergies No known active allergiesdocumented as of this encounter (statuses as of 05/06/2023) Medications Medication Sig Dispensed Refills Start Date End Date Status VITAMIN D 2000 UNIT PO TABS one tablet daily] 0 Active KEVZARA 200 MG/1.14ML SOSY Injection every other week 0 8 Active Multiple Vitamin (MULTI-DAY) Tablet Take 1 Tab by mouth daily. 0 Active aspirin enteric coated 81 MG TBECIndications:Mix ed dyslipidemia,Subcla vian artery stenosis, right (HCC) Take 1 Tab by mouth daily. St 09/16 100 Tab 3 9 Active Meloxicam 15 MG Tablet Take 1 Tablet by mouth every evening. 0 0 Active traMADol (ULTRAM) 50 MG Tablet Take 1 Tablet by mouth daily as needed for Pain. 1 Tab 0 0 Active zolpidem (AMBIEN) 10 MG TabletIndications:P ersistent insomnia Take 1 Tablet by mouth at bedtime. Murphy 7 Tab 0 0 Active Melatonin ER 1 MG TBCRIndications:Per sistent insomnia at bedtime 0 0 Active Ipratropium-Albuter ol 0.5-2.5 (3) MG/3ML Inhalation Solution (Duoneb)Indications :COPD exacerbation (HCC),Bronchitis, complicated Inhale 3 mL via nebulizer every 6 hours as needed for Wheezing. 120 mL 0 1 Active CPAP every night at bedtime . 0 Active Clobetasol Propionate 0.05 % External Cream (Temovate) Apply topically to affected area 2 times a day. To affected area for up to two weeks. 15 g 1 3 Active Additional Information Patient taking differently:TopicalPRN, yeast infections, To affected area for up to two weeks., Reported on 10/06/2022 Metoprolol Succinate ER 100 MG Oral Tablet Extended Release 24 Hour (toPROL XL)Indications:HTN, goal below 130/80 TAKE 1 TABLET BY MOUTH EVERY DAY 90 Tablet 3 3 Active amLODIPine Besylate 2.5 MG Oral Tablet (Norvasc)Indication s:HTN, goal below 130/80,LVH (left ventricular hypertrophy) due to hypertensive disease, without heart failure TAKE 1 TABLET BY MOUTH EVERY DAY 90 Tablet 4 3 Active Fluticasone-Umeclid in-Vilant 100-62.5-25 MCG/ACT Aerosol Powder Breath Activated (Trelegy Ellipta)Indications :Hospital discharge follow-up,COPD exacerbation (HCC),Rhinovirus infection,COPD, moderate (HCC) Inhale 1 Puff by mouth in the morning. Start 11/27/2022 and stop symbicort (cancel Rx anoro ellipta). 60 Blister Dosing Unit 5 3 Active Rosuvastatin Calcium 10 MG Oral Tablet (Crestor)Indication s:Type 2 diabetes mellitus with diabetic neuropathy, without long-term current use of insulin ([facility]),Mixed dyslipidemia TAKE 1 TABLET BY MOUTH EVERY DAY 90 Tablet 2 3 Active Janumet XR 50-1000 MG Oral Tablet Extended Release 24 Hour (SITagliptin-metFOR MIN HCl ER)Indications:Type 2 diabetes mellitus with hemoglobin A1c goal of less than 7.0% ([facility]),Type 2 diabetes mellitus with diabetic neuropathy, unspecified ([facility]) TAKE 1 TABLET BY MOUTH TWICE A DAY 180 Tablet 3 3 Active Lisinopril 10 MG Oral Tablet (Prinivil)Indicatio ns:Type 2 diabetes mellitus with hemoglobin A1c goal of less than 7.0% ([facility]),LVH (left ventricular hypertrophy) due to hypertensive disease, without heart failure,HTN, goal below 130/80 TAKE 1 TABLET BY MOUTH EVERY DAY 90 Tablet 1 4 Active Varenicline Tartrate 1 MG Oral TabletIndications:G ranulomatous lung disease ([facility]),COPD, group B, by GOLD 2017 classification ([facility]),Tobacco use disorder 0.5 mg Daily x 3 days, then twice daily x 4 days, then 1 mg twice daily -- restart week prior to quit date which she is to decide on 60 Tablet 3 4 Active Gabapentin 600 MG Oral Tablet (Neurontin)Indicati ons:Type 2 diabetes mellitus with diabetic neuropathy, without long-term current use of insulin ([facility]) TAKE 1 TABLET IN MORNING, 1.5 TABLET AT NOON AND 1.5 TABLET BEFORE BEDTIME 360 Tablet 1 4 Active Ketoconazole 2 % External CreamIndications:Se borrheic dermatitis Apply to affected areas twice daily-nasolabia l folds x2-4 wks, then as needed 30 g 1 4 Active DULoxetine HCl 60 MG Oral Capsule Delayed Release Particles (Cymbalta)Indicatio ns:Major depressive disorder with single episode, in remission ([facility]),Type 2 diabetes mellitus with diabetic neuropathy, without long-term current use of insulin ([facility]),Cervical spinal stenosis,Cervical spondylosis TAKE 1 CAPSULE BY MOUTH IN THE MORNING 90 Capsule 1 3 05/03/19 24 Discontinued Hospital, Clinic, or Other Facility Administered Medication Ordered Dose Route Frequency Start Date End Date Status Albuterol Sulfate (Proventil) (2.5 MG/3ML) 0.083% inhalation solution 2.5 mgIndications:COPD, moderate ([facility]) 2.5 mg NEBULIZER PRN 12/29/2022 12/29/2023 Active documented as of this encounter (statuses as of 05/06/2023) Active Problems Problem Noted Date Diagnosed Date Type 2 diabetes mellitus wit h diabetic neuropathy, without long-term current use of insulin 10/06/2022 Mixed dyslipidemia 10/06/2022 COPD, group B, by GOLD 2017 classification 06/08 Overview: Per COPD GOLD Classification Granulomatous lung disease 06/27/2021 Dense breast tissue on mammogram 01/06/2019 Overview: 01/17; Tobacco use disorder 06/09/2018 Elevated hemoglobin 04/04/2018 Overview: 04/1900-BpJxmb-wws EPO, ferritin,Tsat, neg JAK2 mutn LVH (left ventricular hypert rophy) due to hypertensive disease, without heart failure 12/27/2017 Overview: 06/1788-ifll-wx40%, no WMabn,mild A Scl,gr 2 DD HTN, [...] as of this encounter (statuses as of 05/06/2023) Resolved Problems Problem Noted Date Diagnosed Date [...] Project. Pt is a participant in the [facility] ([employer]ortium of [employer] Researchers of [place]) national data collection study. For further information please call Dr Alban Del Real or Tata Meeks, RN, CCRC at [phone] [facility] RESEARCH OTHER*[id number] 04/12/2003 08/26/2009 Overview: Renamed Per Clinical Trials Billing Project. Pt is a participant in the [facility] ([employer]ortium [employer] of [place]) national data collection study. For further information please call Dr Alban Del Real or Tata Meeks, RN, CCRC at [phone] ABN CERVIX NEC-ANTEPART 11/24/200205/31 Elderly multigravida with an tepartum condition or complication 10/10/2002 06/22/2017 Arthritis, rheumatoid 2017 DIABETES-ANTEPARTUM 06/23/19 18 documented as of this encounter (statuses as of 05/06/2023) Immunizations Name Administration Dates Next Due COVID-19 [...] (Menactra) 03/13/2018 Pneumococcal Conjugate Vacci ne, 20-valent ([id number]) 04/06/2022 Pneumococcal Polysaccharide PPV23 (Pneumovax) 03/16/2005 SARS-COV-2 [...] encounter Miscellaneous Notes * Telephone Encounter - Cheyenne Tang LPN - 05/06/2023 2:49 PM EST See encounter from 05/05/23 * Telephone Encounter - Dayana Lancaster OSA - 04/29/2023 11:42 AM EST Advised Annie, daughter no update on faxed received. Adv it can take a process once fax is receivedand forms filled out by doctor. We will notify once we have an update. * Telephone Encounter - Aleja Martinez CPhT - 04/28/2023 10:57 AM EST Pt's daughter calling regarding documentation she would like to have completed regarding FMLA. Caller states she will fax the documentation over but it basically is that the pt has a serious medical condition and needs a daily caregiver. Pt's daughter would like to have the documentation completed so she can take care of her mom and not lose her job. Caller states her portion of the documentationis completed but they just need proof that her mom is needing the assistance. Caller is going to fax the documentation to the office, any questions caller can be reached at [phone]. Please advise. Thank you, Steph Martinez CPhT Physical Therapy Manager II [facility] (Formerly [facility]) 04/28/2023,11:01 AM documented in this encounter Plan of Treatment Upcoming Encounters Date Type Department Care Team (Late st Contact Info) Description 05/24/2023 11:00 AM EDT Cardiac Studies Cardiac Studies, [facility] [place] [address] [place] [address] 05/24/2023 3:00 PM EDT Office Visit Hematology/Oncology [facility] [address] [address] [facility] [phone] Fatimah Quintero CRNP [address] [place] [id number] 08/10/2023 1:00 PM EDT Office Visit [facility] [place] [address] [place] [phone] Patricia Guevara, [address] [place] [address] 10/13/2023 5:00 PM EDT Office Visit General Internal Medicine [facility] [address] [place] [address] Raven Agrawal MD [address] [facility] [place] [address] 12/24/2023 1:00 PM EDT Imaging Radiology [facility] [facility] [address] [place] [address] Scheduled Procedures Name Priority Associated Diagnoses Date/Ti me COLONOSCOPY FLEXIBLE PROXIMA L DIAGNOSTIC Recall Screening for malignant neoplasm of colon Health Maintenance Due Date Last Done Comments HPV/Co-Test 1996 Cologuard 09/13/2011 Fecal Occult Blood Test 09/13/2011 Sigmoidoscopy 09/13/2011 DISCUSS TOBACCO CESSATION (REFER TO SMARTSET #3291) 06/27/2022 06/27/2021, 06/13/2020 COVID-19 Vaccine ( season) 2022 01/07/2022, 03/25/2021, [...] 10/05/2022, 02/0 04/2022, 10/21/2021, Additional history exists *NEPHROLOGY REFERRAL DUE TO RESISTANT HTN 04/17/2023 Cervical Cancer Screening 09/25/2023 Pap Smear 09/25/2023 09/24/2020, 05/31, 03/30/2014, Additional history exists B-12 10/06/2023 10/05/2022, 03/02, 07/04/2019, Additional history exists Mammogram 12/18/2023 12/17/2022, 06/2021, 10/09/2020, Additional history exists O2 ASSESSMENT COMPLETED IN PAST YEAR FOR COPD 01/07/2024 01/06/2023 GFR 05/05/2024 05/06/2023, 08/2022, 09/14/2022, Additional history exists Lipid Panel 10/06/2027 10/05/2022, 04/2022, 10/21/2021, Additional history exists Colonoscopy 02/03/2028 02/02/2018, 02/02/2018 Colorectal Cancer Screening 02/03/2028 DTaP,Tdap,and Td Vaccines (5 - Td or Tdap) 10/06/2032 10/06/2022, 11/17/2011, 11/17/2011, Additional history exists Hepatitis B Completed 08/09/2013, 09/2013, 01/31/2013 Hepatitis C Screening Completed 08/12/2015 MENINGOCOCCAL (MENACTRA/MENVEO) Aged Out 03/13/2018 No longer eligible based on patient's age to complete this topic Zoster Vaccines Completed 05/08/2019, 01/17/2019 Alpha-1 Antitrypsin Completed 09/20/2020 LUNG CANCER SCREENING - USE SMARTSET 44394 Completed 03/23/2022, 09/16/2021, 09/16/2020, Additional history exists Pneumococcal Vaccine: Pediatrics (0 to 5 Years) and At-Risk Patients (6 to 64 Years) Completed 04/06/2022, 03/16/2005 GARDASIL-HPV IMMUNIZATION SERIES Aged Out No longer eligible based on patient's age to complete this topic documented as of this encounter Medical Devices Not on filedocumented as of this encounter Care Teams Owner Relationship Specialty Start Date End Date Raven Agrawal MD [facility] [place] [facility], [place] [phone] PCP - General Internal Medicine 12/27/17 documented as of this encounter
--- OUTSIDE RECORDS SUMMARY | 2023-05-29 12:40 | External Medical Summary ---
Author Name Unknown Address Unknown Organization K09:[facility] [place] [id number] Laboratory Report Ordering Provider Test Date Status ANGEL SMALL 05/13/2023 06:23:58 Final Observation Date Value Abnormality Reference (Units ) Status WBC, Total 05/13/2023 06:23:58 6.67 4.00-10.8 0 (K/uL) Final RBC 05/13/2023 06:23:58 4.17 3.85-5.15 (M/uL) Final Hemoglobin 05/13/2023 06:23:58 11.9 Below low normal 12 .0-15.3 (g/dL) Final HCT 05/13/2023 06:23:58 37.7 36.0-45.2 (%) Final MCV 05/13/2023 06:23:58 90.4 81.5-97.5 (fL) Final MCH 05/13/2023 06:23:58 28.5 27.0-34.0 (pg) Final MCHC 05/13/2023 06:23:58 31.6 32.0-36.0 (g/dL) Final RDW 05/13/2023 06:23:58 16.0 11.5-15.5 (%) Final Platelets 05/13/2023 06:23:58 371 140-400 (K /uL) Final MPV 05/13/2023 06:23:58 10.3 6.6-11.1 ( fL) Final Performing Location [facility] [place] [id number]
--- OUTSIDE RECORDS SUMMARY | 2023-05-29 12:40 | External Medical Summary | Summary of Care ---
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 [place] [address] [address] Referral ID Status Reason Start Date Expiration Date Visits Requested Visits Authorized [id number] Pending Review Specialty Services Required 04/14/2023 1 1 Question Answer Referring for: Optometry Conditions Optometry Conditions Diabetic Eye Exam without Retinopathy Referral Priority Within 30 days (routine) Where should this appointment be scheduled? External Reason for Visit * Reason Comments Follow Up Encounter Details Date Type Department Care Team (Latest Contact Info) Description 04/14/2023 5:20 PM EST Office Visit General [facility] [address] [place] [address] Raven Agrawal MD [address] [place] [id number] Routine medical exam*; Type 2 diabetes mellitus with diabetic neuropathy, without long-term current use of insulin (HCC); HTN, goal below 130/80; LVH (left ventricular hypertrophy) due to hypertensive disease, without heart failure; Mixed dyslipidemia; Granulomatous lung disease (HCC); COPD, group B, by GOLD 2017 classification ([facility]); Tobacco use disorder; Screen for colon cancer; Heterogeneously dense tissue of both breasts on mammography; Still's disease of adult ([facility]); Rheumatoid arthritis involving multiple sites with positive rheumatoid factor ([facility]); Elevated hemoglobin ([facility]); MASHA (obstructive sleep apnea); Seborrheic dermatitis Allergies No known active allergiesdocumented as of this encounter (statuses as of 05/08/2023) Medications Medication Sig Dispensed Refills Start Date End Date Status VITAMIN D 2000 UNIT PO TABS one tablet daily] 0 Active KEVZARA 200 MG/1.14ML SOSY Injection every other week 0 09/21/19 18 Active Multiple Vitamin (MULTI-DAY) Tablet Take 1 Tab by mouth daily. 0 Active aspirin enteric coated 81 MG TBECIndications:Mi xed dyslipidemia,Subcl brice artery stenosis, right ([facility]) Take 1 Tab by mouth daily. St 09/16 100 Tab 3 01/04/20 19 Active Meloxicam 15 MG Tablet Take 1 Tablet by mouth every evening. 0 03/03/19 20 Active traMADol (ULTRAM) 50 MG Tablet Take 1 Tablet by mouth daily as needed for Pain. 1 Tab 0 07/04/19 20 Active zolpidem (AMBIEN) 10 MG TabletIndications: Persistent insomnia Take 1 Tablet by mouth at bedtime. DrMurphy 7 Tab 0 07/04/19 20 Active Melatonin ER 1 MG TBCRIndications:Pe rsistent insomnia at bedtime 0 10/02/19 20 Active Ipratropium-Albute rol 0.5-2.5 (3) MG/3ML Inhalation Solution (Duoneb)Indication s:COPD exacerbation ([facility]),Bronchitis, complicated Inhale 3 mL via nebulizer every 6 hours as needed for Wheezing. 120 mL 0 12/26/19 21 Active CPAP every night at bedtime . 0 Active Clobetasol Propionate 0.05 % External Cream (Temovate) Apply topically to affected area 2 times a day. To affected area for up to two weeks. 15 g 1 04/08/19 23 Active Additional Information Patient taking differently:TopicalPRN, yeast infections, To affected area for up to two weeks., Reported on 10/06/2022 Metoprolol Succinate ER 100 MG Oral Tablet Extended Release 24 Hour (toPROL XL)Indications:HTN , goal below 130/80 TAKE 1 TABLET BY MOUTH EVERY DAY 90 Tablet 3 05/23/19 23 Active amLODIPine Besylate 2.5 MG Oral Tablet (Norvasc)Indicatio ns:HTN, goal below 130/80,LVH (left ventricular hypertrophy) due to hypertensive disease, without heart failure TAKE 1 TABLET BY MOUTH EVERY DAY 90 Tablet 4 07/25/19 23 Active Fluticasone-Umecli din-Vilant 100-62.5-25 MCG/ACT Aerosol Powder Breath Activated (Trelegy Ellipta)Indication s:Hospital discharge follow-up,COPD exacerbation (HCC),Rhinovirus infection,COPD, moderate (HCC) Inhale 1 Puff by mouth in the morning. Start 11/27/2022 and stop symbicort (cancel Rx anoro ellipta). 60 Blister Dosing Unit 5 11/28/19 23 Active Rosuvastatin Calcium 10 MG Oral Tablet (Crestor)Indicatio ns:Type 2 diabetes mellitus with diabetic neuropathy, without long-term current use of insulin ([facility]),Mixed dyslipidemia TAKE 1 TABLET BY MOUTH EVERY DAY 90 Tablet 2 12/24/19 23 Active Janumet XR 50-1000 MG Oral Tablet Extended Release 24 Hour (SITagliptin-metFO RMIN HCl ER)Indications:Typ e 2 diabetes mellitus with hemoglobin A1c goal of less than 7.0% ([facility]),Type 2 diabetes mellitus with diabetic neuropathy, unspecified ([facility]) TAKE 1 TABLET BY MOUTH TWICE A DAY 180 Tablet 3 02/05/20 23 Active Lisinopril 10 MG Oral Tablet (Prinivil)Indicati ons:Type 2 diabetes mellitus with hemoglobin A1c goal of less than 7.0% ([facility]),LVH (left ventricular hypertrophy) due to hypertensive disease, without heart failure,HTN, goal below 130/80 TAKE 1 TABLET BY MOUTH EVERY DAY 90 Tablet 1 03/10/19 24 Active Varenicline Tartrate 1 MG Oral TabletIndications: Granulomatous lung disease (HCC),COPD, group B, by GOLD 2017 classification ([facility]),Tobacco use disorder 0.5 mg Daily x 3 days, then twice daily x 4 days, then 1 mg twice daily -- restart week prior to quit date which she is to decide on 60 Tablet 3 04/14/19 24 Active Gabapentin 600 MG Oral Tablet (Neurontin)Indicat ions:Type 2 diabetes mellitus with diabetic neuropathy, without long-term current use of insulin (HCC) TAKE 1 TABLET IN MORNING, 1.5 TABLET AT NOON AND 1.5 TABLET BEFORE BEDTIME 360 Tablet 1 04/14/19 24 Active Ketoconazole 2 % External CreamIndications:S eborrheic dermatitis Apply to affected areas twice daily-nasolabial folds x2-4 wks, then as needed 30 g 1 04/14/19 24 Active Gabapentin 600 MG Oral Tablet (Neurontin)Indicat ions:Type 2 diabetes mellitus with diabetic neuropathy, without long-term current use of insulin (HCC) TAKE 1 TABLET IN MORNING, 1.5 TABLET AT NOON AND 1.5 TABLET BEFORE BEDTIME 360 Tablet 1 10/07/19 23 024 Discontinued(Re fill) DULoxetine HCl 60 MG Oral Capsule Delayed Release Particles (Cymbalta)Indicati ons:Major depressive disorder with single episode, in remission (HCC),Type 2 diabetes mellitus with diabetic neuropathy, without long-term current use of insulin (HCC),Cervical spinal stenosis,Cervical spondylosis TAKE 1 CAPSULE BY MOUTH IN THE MORNING 90 Capsule 1 11/04/19 23 024 Discontinued Varenicline Tartrate 1 MG Oral TabletIndications: Tobacco use disorder,COPD, moderate (HCC) Take 1 Tablet by mouth in the morning and 1 Tablet before bedtime. As directed on box-use from 11/07/2022. 60 Tablet 4 12/05/19 024 Discontinued(Me dication List Clean Up) Nirmatrelvir&Riton avir 300/100 20 x 150 MG & 10 x 100MG Oral Tablet Therapy Pack (Paxlovid)Indicati ons:COVID-19 virus infection,COPD, group B, by GOLD 2017 classification ([facility]) Take 2 pink tablets of Nirmatrelvir and 1 white tablet of Ritonavir two times a day by mouth. 30 Tablet 0 02/17/20 024 Discontinued(Me dication List Clean Up) Hospital, Clinic, or Other Facility Administered Medication Ordered Dose Route Frequency Start Date End Date Status Albuterol Sulfate (Proventil) (2.5 MG/3ML) 0.083% inhalation solution 2.5 mgIndications:COPD, moderate (HCC) 2.5 mg NEBULIZER PRN 12/29/2022 12/29/2023 Active documented as of this encounter (statuses as of 05/08/2023) Active Problems Problem Noted Date Diagnosed Date Type 2 diabetes mellitus wit h diabetic neuropathy, without long-term current use of insulin 10/06/2022 Mixed dyslipidemia 10/06/2022 COPD, group B, by GOLD 2017 classification 06/08 Overview: Per COPD GOLD Classification Granulomatous lung disease 06/27/2021 Dense breast tissue on mammogram 01/06/2019 Overview: 01/17; Tobacco use disorder 06/09/2018 Elevated hemoglobin 04/04/2018 Overview: 04/1952-FxUfvb-hoi EPO, ferritin,Tsat, neg JAK2 mutn LVH (left ventricular hypert rophy) due to hypertensive disease, without heart failure 12/27/2017 Overview: 06/1702-qxke-sh61%, no WMabn,mild A Scl,gr 2 DD HTN, [...] as of this encounter (statuses as of 05/08/2023) Resolved Problems Problem Noted Date Diagnosed Date [...] 06/22/2017 07/21/2017 Undiagnosed cardiac murmurs 03/11/2011 06/22/2017 #[id number]\\[id number]\\ENEWMAN 04/12/2003 Overview: Renamed Per Clinical Trials Billing Project. Pt is a participant in the [facility] (Consortium of Rheumatology Researchers of [place]) national data collection study. For further information please call Dr Alban Del Real or Tata Meeks, RN, CCRC at [phone] [facility] RESEARCH OTHER*[id number] 04/12/2003 08/26/2009 Overview: Renamed Per Clinical Trials Billing Project. Pt is a participant in the [facility] (Consortium of [employer]ology Researchers of [place]) national data collection study. For further information please call Dr Alban Del Real or Tata Meeks, RN, CCRC at [phone] ABN CERVIX NEC-ANTEPART 11/24/200205/31 Elderly multigravida with an tepartum condition or complication 10/10/2002 06/22/2017 Arthritis, rheumatoid 2017 DIABETES-ANTEPARTUM 06/23/19 18 documented as of this encounter (statuses as of 05/08/2023) Immunizations Name Administration Dates Next Due COVID-19 [...] (Menactra) 03/13/2018 Pneumococcal Conjugate Vacci ne, 20-valent ([id number]) 04/06/2022 SARS-COV-2 (COVID-19) Vaccine Unspecified 2021 Seasonal [...] on file documented as of this encounter Last Filed Vital Signs Vital Sign Reading Time Taken Comments Blood Pressure 156/86 04/14/2023 5:48 PM EST Pulse 72 04/14/2023 5:48 PM EST Temperature 36.7 C (98.1 F) 04/14/2023 5:48 PM ES T Respiratory Rate 18 04/14/2023 5:48 PM EST Oxygen Saturation - - Inhaled Oxygen Concentration - - Weight 72.2 kg (159 lb 1.6 oz) 04/14/2023 5:48 P M EST Height - - Body Mass Index 28.01 01/06/2023 11:00 AM EST documented in this encounter Progress Notes * Raven Agrawal MD - 04/14/2023 6:05 PM EST SUBJECTIVE: Aura Hardy is a 57 year old female. Chief Complaint Patient presents with Follow Up Nursing Notes: Fatimah Zambrano LPN 04/14/23 [id number] Signed Aura Hardy presents for 6 month recheck. Medications & HM reviewed. Pt declined foot exam today- states her feet are very sensitive and painful and she would prefer tohave it done at her next visit- she'll take pain medicine before coming in so that she can have theexam done. HPI: Patient presents today for 4 mth f/u Wt Readings from Last 6 Encounters: 04/14/23 72.2 kg (159 lb 1.6 oz) 01/06/23 71.9 kg (158 lb 8.2 oz) 12/29/22 73.2 kg (161 lb 6.4 oz) 11/27/22 70.3 kg (155 lb) 10/06/22 69.9 kg (154 lb 3.2 oz) 06/29/22 74.2 kg (163 lb 9.6 oz) BP Readings from Last 6 Encounters: 04/14/23 156/86 01/06/23 124/6 12/29/22 124/68 11/27/22 140/82 11/23/22 162/84 10/06/22 134/78 PMH-Type 2 diabetes with chronic neuropathy, HTN with LVH, dyslipidemia, low hdl, moderate proximalright subclavian artery stenosis; depression. Stills disease, Rheumatoid arthritis And OA f/b Dr. Nguyen in [place]. History of ITP diagnosed by Dr. Sommers in 2015, saw Dr. Carey , now Freddy. has elevated hemoglobin attributed to smoking/sleep apnoea, nml ferritin; observation was recommended. Tobacco use disorder,COPD,OSAS on CPAP since 17/02 10-18 CWP. history of C diff colitis 07/16; normal colonoscopy 01/2018 -sig tics, rpt 10 yrs >-followed by Cardiology Dr. Smith. >ref to [facility] for eval 06/24/18>> Jaime 09/16 eval-[facility] 1 yr [facility] 09/13/19--carotid nl-, asx [facility] st-fu prn >06/09/18- Neurology evaluation of a possible seizure--eeg nml., MRI --mild volume loss,, MRA H/Nr/o Chiari malformation neg, no HDSS,<suspected acarotid atherosclerosis, did not feel sx were neurologic. -hospitalized 11/23/2022, discharged 11/24/22 for COPD exacerbation secondary to rhino virus. Went to urgent care, pulse ox 85% on room air , tx to ER, required 5 L of oxygen initially. Given prolonged nebulizer treatment for 1 hour, Solu-Medrol, Rocephin. Labs-normal CBC with chronic hemoglobin 16, normal CMP, magnesium 1.5 repleted with 2 g IV at discharge 2.1, normal lactate coags respiratory pathogen panel negative except for rhino virus. Chest x-ray cardiomegaly and pulmonary vascular congestion. EKG normal sinus rhythm at 85 B p.m.. Pulmonology saw patient in the hospital, Rocephin discontinued and switched to azithromycin ,IV steroids switch to prednisone by mouth and to start Anoro. Required a 2 step oxygen therapy qualify foroxygen on exertion 2 L.has not needed O2 now, will ch 2 step. 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 -needs to [facility] pulm appt--human resource internship has reached out xle times 12/25/22-noticed significant improvement in her symptoms; not used DuoNeb in the last week She has set a quit date of smoking for 01/18/23 and will start Chantix , still smoking 1/2-3/4 PPD -[facility] pulm appt,PFT, 6 MWT few wks prior. -[facility] sleep cl f/u in april;N/u cpap since jan 2023-got it 4 yrs ago . 04/24- still smoking, 01/06/23- PFT showing evidence of apparent restriction, spirometry unchanged after bronchodilator administration. 01/06/23-6 MWT-nml Urine for microalbumin-neg 03/21;04/22; 04/23 Eye exam 07/16., retinal scan 01/03/2019--to [facility] --vision works mid jan 20,?23 Foot exam-neg 07/20,04/06/2022, defers today - we start 5mg lisinopril in 12/16. Chronic left hand and shoulder numbness, x-ray C-spine multilevel degenerative disc disease, EMG normal January 2019, saw Urology for diabetic neuropathy, repeat EMG 02/18mild axonal sensory greaterthan motor polyneuropathy, mild chronic left C7 radiculopathy, has follow-up with Neurology 06/20/21. 02/03/21--neg SPEP, Ssa/Ssb,neg REAL, TSH, b6-43. Neurology evaluation 06/20/2021,note rev> Patient continues to have significant neuropathy symptoms, defers increase in dose of gabapentin, willing to start Cymbalta. She is on Effexor for history of depression/anxiety and will need to wean off Med. 09/04/21- MRI [id number] protrusion with bone spurring causing moderate thecal sac narrowing from C5-C7, severe foraminal stenosis bilaterally at same level. Possible ossification of the posterior longitudinal ligament could appear similar --could be evaluated by CT Had pain clinic [facility] 09/17/21 --baclofen 10mg di d not help--took 20mg once with relief, willinc cymbalta. 10/20--is in PT at [facility] 2/wk;-s/p left C7/T1 EMEKA performed 10/27/21. Larisa. 04/23-, States by the time she got injection pain had improved. Remains on gabapentin and Cymbalta 60 mg since 10/20 [id number] 2003 Pap smear neg 06/23/17, 2014 and [id number] 6/21- postmenopausal atrophy vaginitis and vulvar dystrophic changes, she had not wanted to start estrogen cream until results of her mammogram Pap smear 09/24/20-neg Did start estradiol cream 10/13/20--Used x 2 mths off 2-3 wks as left Rx at [facility] in [place], notes symptoms had improved, defers exam. 04/23- states has recurrence of her rash in the vaginal area, defers exam today, to resume Estrogen cream and if not better start the triamcinolone ointment, waste disposal leakage tester referral will be done. As she may needa biopsy Mammogram--negative except dense breast tissue- --12/23/21., 12/17/22;-is jose 12/24/23 Follows up with dentist next week. Next upon Dr. Nguyen also next week Was visiting mother in [place] for about a month, got back 3-4 days ago, off trilogy for one-month as she did not have it. Continues to smoke 1 pack a day, strongly advised smoking cessation, to retry Chantix after she hashad a quit date Had pneumonia vac at [facility]--get rec Had prevnar 20 04/2022. Refuses flu vaccine Discussed about covid booster --had at rheum office [place]--send us card Cov + 02/15/23--got conor Immunization History Administered Date(s) Administered COVID-19 mRNA, LNP-s, No Preserve, 2-Dose Series (Moderna) 05/06/2020, 06/03/2020 COVID-19, mRNA, LNP-s, PF, Booster, 100mcg/0.5mg (Moderna) 03/24/2021 Covid-19, Mrna, Lnp-s, Pf, Bivalent, 50 Mcg, IM, 12 yrs and above (Moderna) 01/07/2022 HEP A - Hepatitis A (Adult > 18 yrs) 03/13/2018 Hepatitis B, 20+ yrs 01/31/2013, 03/08/2013, 08/09/2013 Meningococcal MCV4P Conjugate Vaccine (Menactra) 03/13/2018 Pneumococcal Conjugate Vaccine, 20-valent ([id number]) 04/06/2022 Pneumococcal Polysaccharide PPV23 (Pneumovax) 03/16/2005 SARS-COV-2 (COVID-19) Vaccine Unspecified 03/25/2021 Seasonal Influenza Virus Vaccine, Unspecified Formulation 11/17/2011, 01/31/2013, 01/03/2019 Seasonal Influenza, PF, 6 M & above, IM , (FluLaval or Fluzone) 01/03/2019 Seasonal Influenza, Split, IIV3, With Preserve, Inj 11/17/2011, 01/31/2013 TD - Tetanus/Diptheria (ADULT) 11/17/2011 TD, Preservative Free 11/17/2011, 10/06/2022 TDAP (age 11 and older)(Adacel) 01/29/2009 Zoster Vaccine Recombinant (Shingrix) 01/17/2019, 05/08/2019 Hemoglobin AIC Results: Lab Results Component Value Date/Time HEMOGLOBIN A1C - [facility] 6.9 (H) 10/05/2022 03:58 PM HEMOGLOBIN A1C - [facility] 6.6 (H) 04/03/2022 02:17 PM HEMOGLOBIN A1C - [facility] 6.4 (H) 10/21/2021 04:06 PM HEMOGLOBIN A1C - [facility] 6.8 (H) 03/25/2020 12:28 PM HEMOGLOBIN A1C - [facility] 7.2 (H) 07/04/2019 12:34 PM HEMOGLOBIN A1C - [facility] 7.3 (H) 01/03/2019 01:13 PM Patient Active Problem List Diagnosis Code Type 2 diabetes mellitus with hemoglobin A1c goal of less than 7.0% (HCC) E11.9 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9 Type 2 diabetes mellitus with diabetic neuropathy, without long-term current use of insulin ([facility]) E11.40 Mixed dyslipidemia E78.2 Outpatient Medications Prior to Visit Medication Sig Dispense Refill Lisinopril 10 MG Oral Tablet (Prinivil) TAKE 1 TABLET BY MOUTH EVERY DAY 90 Tablet 1 Janumet XR 50-1000 MG Oral Tablet Extended Release 24 Hour (SITagliptin- metFORMIN HCl ER) TAKE 1 TABLET BY MOUTH TWICE A DAY 180 Tablet 3 Rosuvastatin Calcium 10 MG Oral Tablet (Crestor) TAKE 1 TABLET BY MOUTH EVERY DAY 90 Tablet 2 Opoppykltdm-Rfupsjaec-Zzsnzu 100-62.5-25 MCG/ACT Aerosol Powder Breath Activated (Trelegy Ellipta) Inhale 1 Puff by mouth in the morning. Start 11/27/2022 and stop symbicort (cancel Rx anoro ellipta).60 Blister Dosing Unit 5 DULoxetine HCl 60 MG Oral Capsule Delayed Release Particles (Cymbalta) TAKE 1 CAPSULE BY MOUTH IN THE MORNING 90 Capsule 1 Gabapentin 600 MG Oral Tablet (Neurontin) TAKE 1 TABLET IN MORNING, 1.5 TABLET AT NOON AND 1.5 TABLET BEFORE BEDTIME 360 Tablet 1 amLODIPine Besylate 2.5 MG Oral Tablet (Norvasc) TAKE 1 TABLET BY MOUTH EVERY DAY 90 Tablet 4 Metoprolol Succinate ER 100 MG Oral Tablet Extended Release 24 Hour (toPROL XL) TAKE 1 TABLET BY MOUTH EVERY DAY 90 Tablet 3 Clobetasol Propionate 0.05 % External Cream (Temovate) Apply topically to affected area 2 times a day. To affected area for up to two weeks. (Patient taking differently: Apply topically to affected area as needed (yeast infections). To affected area for up to two weeks.) 15 g 1 CPAP every night at bedtime . Ipratropium-Albuterol 0.5-2.5 (3) MG/3ML Inhalation Solution (Duoneb) Inhale 3 mL via nebulizer every 6 hours as needed for Wheezing. 120 mL 0 Melatonin ER 1 MG TBCR at bedtime traMADol (ULTRAM) 50 MG Tablet Take 1 Tablet by mouth daily as needed for Pain. 1 Tab 0 zolpidem (AMBIEN) 10 MG Tablet Take 1 Tablet by mouth at bedtime. DrMurphy 7 Tab 0 Meloxicam 15 MG Tablet Take 1 Tablet by mouth every evening. aspirin enteric coated 81 MG TBEC Take 1 Tab by mouth daily. St 09/16 100 Tab 3 Multiple Vitamin (MULTI-DAY) Tablet Take 1 Tab by mouth daily. KEVZARA 200 MG/1.14ML SOSY Injection every other week VITAMIN D 2000 UNIT PO TABS one tablet daily] [DISCONTINUED] Nirmatrelvir&Ritonavir 300/100 20 x 150 MG & 10 x 100MG Oral Tablet Therapy Pack (Paxlovid) Take 2 pink tablets of Nirmatrelvir and 1 white tablet of Ritonavir two times a day by mouth. 30 Tablet 0 [DISCONTINUED] Varenicline Tartrate 1 MG Oral Tablet Take 1 Tablet by mouth in the morning and 1 Tablet before bedtime. As directed on box-use from 11/07/2022. (Patient not taking: Reported on 12/29/2022) 60 Tablet 4 Facility-Administered Medications Prior to Visit Medication Dose Route Frequency Provider Last Rate Last Admin Albuterol Sulfate (Proventil) (2.5 MG/3ML) 0.083% inhalation solution 2.5 mg 2.5 mg Nebulizer PRN Raven Agrawal MD 2.5 mg at 01/06/23 1037 Last reviewed on 04/14/2023 5:47 PM by Fatimah Zambrano LPN Review of patient's allergies indicates: No Known Allergies OBJECTIVE: BP 156/86 | Pulse 72 | Temp 36.7 C (98.1 F) (Tympanic) | Resp 18 | Wt 72.2 kg (159 lb 1.6 oz) |LMP 10/10/2014 (Exact Date) | BMI 28.01 kg/m | BSA 1.79 m PHYSICAL EXAM: General: alert, healthy, no distress, well nourished and well developed Head: Normocephalic, atraumatic Eye Exam: PERRLA, EOMI, Conjunctiva are pink and non-injected, sclera clear Ears: External ears normal, Canal clear, Tm normal Nose: no mucosal erythema, no mucosal edema, no purulent discharge Oropharynx: no exudate and no erythema Neck: supple, no bruits, no JVD, thyroid normal size, non-tender, without nodularity Lymph: No palpable lymphadenopathy. Heart: Regular rhythm and rate, no murmurs and no gallops Lungs: dec BS, faint end inp rhonchi Abdomen: Soft, non-tender, normal bowel sounds, no masses or organomegaly, no bruits Extremities: no edema, no clubbing, no cyanosis. Neuro Exam: alert & oriented x 3 with fluent speech, no focal motor/sensory deficits, gait normal Skin: skin color, texture, turgor are normal, Erythema NL folds nick ASSESSMENT/PLAN: Routine medical exam (Primary) Advised to follow healthy diet, and to exercise regularly atleast 30 minutes 3 x/wk . Apply suncreen SPF>30; 30 min prior to going out in sun Recommend annual flu vaccine in the fall and being uptodate on adult immunizations. Type 2 diabetes mellitus with diabetic neuropathy, without long-term current use of insulin ([facility]) - ADULT/PEDS OPHTHALMOLOGY/OPTOMETRY REFERRAL OP - Gabapentin 600 MG Oral Tablet (Neurontin); TAKE 1 TABLET IN MORNING, 1.5 TABLET AT NOON AND 1.5 TABLET BEFORE BEDTIME HTN, goal below 130/80 LVH (left ventricular hypertrophy) due to hypertensive disease, without heart failure Sl high today, resume trelegy, keep card appt Mixed dyslipidemia Granulomatous lung disease (HCC) - Varenicline Tartrate 1 MG Oral Tablet; 0.5 mg Daily x 3 days, then twice daily x 4 days, then 1 mg twice daily -- restart week prior to quit date which she is to decide on COPD, group B, by GOLD 2017 classification ([facility]) - Varenicline Tartrate 1 MG Oral Tablet; 0.5 mg Daily x 3 days, then twice daily x 4 days, then 1 mg twice daily -- restart week prior to quit date which she is to decide on Tobacco use disorder - Varenicline Tartrate 1 MG Oral Tablet; 0.5 mg Daily x 3 days, then twice daily x 4 days, then 1 mg twice daily -- restart week prior to quit date which she is to decide on Resume trelegy, keep pulm appt 05/05/23 Screen for colon cancer Heterogeneously dense tissue of both breasts on mammography Utd 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 | For: Fasting Labs Soon, Labs 2-5 Days Before Next Visit, Return with Physician | Check-out note: [facility] (This note was completed using the dictation program Fluency Direct. As such, there may be misspellings, word substitutions, or other variations that should not change the essence of the clinical content of this encounter note. If there is need for further clarification, please direct questions to the provider listed above.) Patient and / caregiver verbalizes understanding of above instructions and agrees with plan of care. Raven Agrawal MD 04/14/2023 documented in this encounter Nursing Notes * Fatimah Zambrano LPN - 04/14/2023 5:47 PM EST Aura Hazel Hadry presents for 6 month recheck. Medications & HM reviewed. Pt declined foot exam today- states her feet are very sensitive and painful and she would prefer tohave it done at her next visit- she'll take pain medicine before coming in so that she can have theexam done. documented in this encounter Plan of Treatment Upcoming Encounters Date Type Department Care Team (Late st Contact Info) Description 05/24/2023 11:00 AM EDT Cardiac Studies Cardiac Studies, [facility] [address] [facility] [place] [address] 05/24/2023 3:00 PM EDT Office Visit Hematology/Oncology [facility] [place] [address] [facility] [place] [address] Fatimah Quintero CRNP [address] [facility] [place] [address] 08/10/2023 1:00 PM EDT Office Visit Sleep Disorders Ctr [facility] 132 [facility] [place] [phone] Patricia Guevara DO 132 [facility] [place] [address] 10/13/2023 5:00 PM EDT Office Visit General Internal Medicine [facility] [address] [facility] [place] [address] Raven Agrawal MD [address] [place] [address] 12/24/2023 1:00 PM EDT Imaging Radiology [address] [facility] [place] [address] Scheduled Procedures Name Priority Associated Diagnoses Date/Ti me COLONOSCOPY FLEXIBLE PROXIMA L DIAGNOSTIC Recall Screening for malignant neoplasm of colon Scheduled Referrals Name Type Priority Associated Diagnoses Orde r Schedule ADULT/PEDS OPHTHALMOLOGY/OPTOM ETRY REFERRAL OP Referral Within 30 days (routine) Type 2 diabetes mellitus with diabetic neuropathy, without long-term current use of insulin (HCC) Ordered: 04/14/2023 Health Maintenance Due Date Last Done Comments HPV/Co-Test 1996 Cologuard 09/13/2011 Fecal Occult Blood Test 09/13/2011 Sigmoidoscopy 09/13/2011 DISCUSS TOBACCO CESSATION (REFER TO SMARTSET #8055) 06/27/2022 06/27/2021, 06/13/2020 COVID-19 Vaccine ( season) [...] 07/04/2019, Additional history exists Mammogram 12/18/2023 12/17/2022, 1006/2021, 10/09/2020, Additional history exists O2 ASSESSMENT COMPLETED IN PAST YEAR FOR COPD 01/07/2024 01/06/2023 GFR 05/05/2024 05/06/2023, 08/0 08/2022, 09/14/2022, Additional history exists Lipid Panel 10/06/2027 10/05/2022, 02/0 04/2022, 10/21/2021, Additional history exists Colonoscopy 02/03/2028 [...] 09/20/2020 LUNG CANCER SCREENING - USE SMARTSET 23716 Completed 03/23/2022, 09/16/2021, 09/16/2020, Additional history exists Pneumococcal Vaccine: Pediatrics (0 to 5 Years) and At-Risk Patients (6 to 64 Years) Completed 04/06/2022, 03/16/2005 GARDASIL-HPV IMMUNIZATION SERIES Aged Out No longer eligible based on patient's age to complete this topic documented as of this encounter Medical Devices Not on filedocumented as of this encounter Visit Diagnoses Diagnosis Routine medical exam- Primary Routine general medical examination at a health care facility Type 2 diabetes mellitus with diabetic neuropathy, without long-term current use of insulin (HCC) HTN, goal below 130/80 Unspecified essential hypertension LVH (left ventricular hypertrophy) due to hypertensive disease, without heart failure Mixed dyslipidemia Mixed hyperlipidemia Granulomatous lung disease (HCC) Other diseases of lung, not elsewhere classified COPD, group B, by GOLD 2017 classification (HCC) Tobacco use disorder Screen for colon cancer Special screening for malignant neoplasms, colon Heterogeneously dense tissue of both breasts on mammography Still's disease of adult (HCC) Other rheumatoid arthritis with visceral or systemic involvement Rheumatoid arthritis involving multiple sites with positive rheumatoid factor (HCC) Elevated hemoglobin (HCC) Other hemoglobinopathies MASHA (obstructive sleep apnea) Obstructive sleep apnea (adult) (pediatric) Seborrheic dermatitis Seborrheic dermatitis, unspecified documented in this encounter Care Teams Felting Machine Operator Helper Relationship Specialty Start Date End Date Raven Agrawal MD [address] [place] [address], [place] [address] PCP - General Internal Medicine 12/27/17 documented as of this encounter"
--- OUTSIDE RECORDS SUMMARY | 2023-05-29 12:40 | External Medical Summary | Summary of Care ---
Author Name Unknown Organization [facility] Address [address] [place] [address] Phone [phone] Care Team Providers Care Senior Project Coordinator Name Role Phone Raven Agrawal MD Primary Care Provider [phone] Reason for Visit * Reason Onset Date Comments Fax 04/28/2023 Encounter Details Date Type Department Care Team (Late st Contact Info) Description 04/28/2023 Telephone General Internal Medicine [facility] [address] [facility] [place] [address] Raven Agrawal MD 200 [facility] [place] [address] Fax Allergies No known active allergiesdocumented as of this encounter (statuses as of 05/05/2023) Medications Medication Sig Dispensed Refills Start Date [...] without long-term current use of insulin ([facility]),Mixed dyslipidemia TAKE 1 TABLET BY MOUTH EVERY DAY 90 Tablet 2 3 Active Janumet XR 50-1000 MG Oral Tablet Extended Release 24 Hour (SITagliptin-metFOR MIN HCl ER)Indications:Type 2 diabetes mellitus with hemoglobin A1c goal of less than 7.0% ([facility]),Type 2 diabetes mellitus with diabetic neuropathy, unspecified ([facility]) TAKE 1 TABLET BY MOUTH TWICE A DAY 180 Tablet 3 3 Active Lisinopril 10 MG Oral Tablet (Prinivil)Indicatio ns:Type 2 diabetes mellitus with hemoglobin A1c goal of less than 7.0% ([facility]),LVH (left ventricular hypertrophy) due to hypertensive disease, without heart failure,HTN, goal below 130/80 TAKE 1 TABLET BY MOUTH EVERY DAY 90 Tablet 1 4 Active Varenicline Tartrate 1 MG Oral TabletIndications:G ranulomatous lung disease ([facility]),COPD, group B, by GOLD 2017 classification ([facility]),Tobacco use disorder 0.5 mg Daily x 3 days, then twice daily x 4 days, then 1 mg twice daily -- restart week prior to quit date which she is to decide on 60 Tablet 3 4 Active Gabapentin 600 MG Oral Tablet (Neurontin)Indicati ons:Type 2 diabetes mellitus with diabetic neuropathy, without long-term current use of insulin ([facility]) TAKE 1 TABLET IN MORNING, 1.5 TABLET AT NOON AND 1.5 TABLET BEFORE BEDTIME 360 Tablet 1 4 Active Ketoconazole 2 % External CreamIndications:Se borrheic dermatitis Apply to affected areas twice daily-nasolabia l folds x2-4 wks, then as needed 30 g 1 4 Active DULoxetine HCl 60 MG Oral Capsule Delayed Release Particles (Cymbalta)Indicatio ns:Major depressive disorder with single episode, in remission ([facility]),Type 2 diabetes mellitus with diabetic neuropathy, without long-term current use of insulin ([facility]),Cervical spinal stenosis,Cervical spondylosis TAKE 1 CAPSULE BY MOUTH IN THE MORNING 90 Capsule 1 3 05/03/19 24 Discontinued Hospital, Clinic, or Other Facility Administered Medication Ordered Dose Route Frequency Start Date End Date Status Albuterol Sulfate (Proventil) (2.5 MG/3ML) 0.083% inhalation solution 2.5 mgIndications:COPD, moderate ([facility]) 2.5 mg NEBULIZER PRN 12/29/2022 12/29/2023 Active documented as of this encounter (statuses as of 05/05/2023) Active Problems Problem Noted Date Diagnosed Date Type 2 diabetes mellitus wit h diabetic neuropathy, without long-term current use of insulin 10/06/2022 Mixed dyslipidemia 10/06/2022 COPD, group B, by GOLD 2017 classification 06/08 Overview: Per COPD GOLD Classification Granulomatous lung disease 06/27/2021 Dense breast tissue on mammogram 01/06/2019 Overview: 01/17; Tobacco use disorder 06/09/2018 Elevated hemoglobin 04/04/2018 Overview: 04/1985-BuCckv-qjb EPO, ferritin,Tsat, neg JAK2 mutn LVH (left ventricular hypert rophy) due to hypertensive disease, without heart failure 12/27/2017 Overview: 06/1778-fsde-km05%, no WMabn,mild A Scl,gr 2 DD HTN, [...] as of this encounter (statuses as of 05/05/2023) Resolved Problems Problem Noted Date Diagnosed Date [...] Pt is a participant in the [facility] (Consortium of Rheumatology Researchers of [place]) national data collection study. For further information please call Dr Alban Del Real or Tata Meeks, RN, CCRC at [phone] [facility] RESEARCH OTHER*[id number] 04/12/2003 08/26/2009 Overview: Renamed Per Clinical Trials Billing Project. Pt is a participant in the [facility] (Consortium of Rheumatology Researchers [place]) national data collection study. For further information please call Dr Alban Del Real or Tata Meeks, RN, CCRC at [phone] ABN CERVIX NEC-ANTEPART 11/24/200205/31 Elderly multigravida with an tepartum condition or complication 10/10/2002 06/22/2017 Arthritis, rheumatoid 2017 DIABETES-ANTEPARTUM 06/23/19 18 documented as of this encounter (statuses as of 05/05/2023) Immunizations Name Administration Dates Next Due COVID-19 [...] (Menactra) 03/13/2018 Pneumococcal Conjugate Vacci ne, 20-valent ([id number]) 04/06/2022 Pneumococcal Polysaccharide PPV23 (Pneumovax) 03/16/2005 SARS-COV-2 [...] encounter Miscellaneous Notes * Telephone Encounter - Dayana Lancaster OSA - 04/29/2023 11:42 AM EST Advised Annie daughter no update on faxed received. Adv [...] any questions caller can be reached at [phone]. Please advise. Thank you, Steph Martinez CPhT Biomass Plant Technician II [facility] ([facility]) (Formerly Telepharmacy) 04/28/2023,11:01 AM documented in this encounter Plan of Treatment Upcoming Encounters Date Type Department Care Team (Late st Contact Info) Description 05/24/2023 11:00 AM EDT Cardiac Studies Cardiac Studies, [facility] [place] [address] [place] [address] 05/24/2023 3:00 PM EDT Office Visit Hematology/Oncology [address] [place] [phone] Fatimah Quintero CRNP [address] [place] [address] [place] [address] 08/10/2023 1:00 PM EDT Office Visit Sleep Disorders Ctr [facility] [place] [address] [place] [phone] Patricia Guevara DO [address] [place] [address] 10/13/2023 5:00 PM EDT Office Visit General Internal Medicine [address] [place] [address] Raven Agrawal MD [address] [place] [address] 12/24/2023 1:00 PM EDT Imaging Radiology [facility]st [facility], [place] [address] [place] [address] Scheduled Procedures Name Priority Associated Diagnoses Date/Ti me COLONOSCOPY FLEXIBLE PROXIMA L DIAGNOSTIC Recall Screening for malignant neoplasm of colon Health Maintenance Due Date Last Done Comments HPV/Co-Test 1996 Cologuard 09/13/2011 Fecal Occult Blood Test 09/13/2011 Sigmoidoscopy 09/13/2011 DISCUSS TOBACCO CESSATION (REFER TO SMARTSET #9621) 06/27/2022 06/27/2021, 06/13/2020 COVID-19 Vaccine ( season) [...] 10/06/2023 10/05/2022, 03/02, 07/04/2019, Additional history exists GFR 10/06/2023 10/05/2022, 08/29, 04/03/2022, Additional history exists Mammogram 12/18/2023 12/17/2022, 06/2021, 10/09/2020, Additional history exists O2 ASSESSMENT COMPLETED IN PAST YEAR FOR COPD 01/07/2024 01/06/2023 Lipid Panel 10/06/2027 10/05/2022, 04/2022, 10/21/2021, Additional [...] 09/20/2020 LUNG CANCER SCREENING - USE SMARTSET 60916 Completed 03/23/2022, 09/16/2021, 09/16/2020, Additional history exists Pneumococcal Vaccine: Pediatrics (0 to 5 Years) and At-Risk Patients (6 to 64 Years) Completed 04/06/2022, 03/16/2005 GARDASIL-HPV IMMUNIZATION SERIES Aged Out No longer eligible based on patient's age to complete this topic documented as of this encounter Medical Devices Not on filedocumented as of this encounter Care Teams Senior Project Coordinator Relationship Specialty Start Date End Date Raven Agrawal MD [address] [place] [address] PCP - General Internal Medicine 12/27/17 documented as of this encounter
--- OUTSIDE RECORDS SUMMARY | 2023-05-29 12:40 | External Medical Summary ---
Author Name Unknown Address Unknown Organization K09[facility] [place] [address] Laboratory Report Ordering Provider Test Date Status ANGEL SMALL 05/06/2023 06:30:28 Final Observation Date Value Abnormality Reference (Units ) Status WBC, Total 05/06/2023 06:30:28 7.64 4.00-10.8 0 (K/uL) Final RBC 05/06/2023 06:30:28 3.64 3.85-5.15 (M/uL) Final Hemoglobin 05/06/2023 06:30:28 10.5 Below low normal 12 .0-15.3 (g/dL) Final HCT 05/06/2023 06:30:28 32.9 Below low normal 36. 0-45.2 (%) Final MCV 05/06/2023 06:30:28 90.4 81.5-97.5 (fL) Final MCH 05/06/2023 06:30:28 28.8 27.0-34.0 (pg) Final MCHC 05/06/2023 06:30:28 31.9 32.0-36.0 (g/dL) Final RDW 05/06/2023 06:30:28 14.7 11.5-15.5 (%) Final Platelets 05/06/2023 06:30:28 377 140-400 (K /uL) Final MPV 05/06/2023 06:30:28 10.1 6.6-11.1 ( fL) Final Performing Location [facility] [address]
--- OUTSIDE RECORDS SUMMARY | 2023-05-29 12:40 | External Medical Summary | Summary of Care ---
Author Name Unknown Organization [facility] Address [address] [facility] [place] [address] Phone [phone] Care Team Providers Care Surveillance Manager Name Role Phone Raven Agrawal MD Primary Care Provider [phone] Encounter Details Date Type Department Care Team (Late st Contact Info) Description 05/25/2023 Orders Only PATIENT PORTAL DO NOT DELETE THIS DEPT USED BY [place] [id number] Allergies No known active allergiesdocumented as of [...] without long-term current use of insulin ([facility]),Mixed dyslipidemia TAKE 1 TABLET BY MOUTH EVERY DAY 90 Tablet 2 12/23/2022 Active Gabapentin 600 MG Oral Tablet (Neurontin)Indicat ions:Type 2 diabetes mellitus with diabetic neuropathy, without long-term current use of insulin ([facility]) TAKE 1 TABLET IN MORNING, 1.5 TABLET AT NOON AND 1.5 TABLET BEFORE BEDTIME 360 Tablet 1 04/14/2023 Active Ketoconazole 2 % External CreamIndications:S eborrheic dermatitis Apply to affected areas twice daily-nasolabial folds x2-4 wks, then as needed 30 g 1 04/14/2023 Active DULoxetine HCl 60 MG Oral Capsule Delayed Release Particles (Cymbalta)Indicati ons:Major depressive disorder with single episode, in remission ([facility]),Type 2 diabetes mellitus with diabetic neuropathy, without long-term current use of insulin ([facility]),Cervical spinal stenosis,Cervical spondylosis TAKE 1 CAPSULE BY [...] needed for Pain, Mild. 0 05/16/2023 Active [email or web address] Verio In Vitro Strip (Glucose Blood)Indications: Type 2 diabetes mellitus with diabetic neuropathy, without long-term current use of insulin ([facility]) Use upto twice daily E11.9 100 Strip 11 05/19/2023 Active UberpongTouch Verio w/Device KitIndications:Typ e 2 diabetes mellitus with diabetic neuropathy, without long-term current use of insulin ([facility]) Use upto twice daily E11.9 1 Kit 0 05/19/2023 Active UberpongTouch UltraSoft LancetsIndications :Type 2 diabetes mellitus with diabetic neuropathy, without long-term current use of insulin ([facility]) Use upto twice daily E11.9 100 Each 1 05/19/2023 Active Lisinopril 10 MG Oral Tablet (Prinivil)Indicati ons:LVH (left ventricular hypertrophy) due to hypertensive disease, without heart failure,Type 2 diabetes mellitus with hemoglobin A1c goal of less than 7.0% ([facility]),HTN, goal below 130/80 Take 1 Tablet by [...] use disorder 06/09/2018 Elevated hemoglobin 04/04/2018 Overview: 04/1956-PrQjgx-pdc EPO, ferritin,Tsat, neg JAK2 mutn LVH (left ventricular hypert rophy) due to hypertensive disease, without heart failure 12/27/2017 Overview: 06/1705-dryk-ki01%, no WMabn,mild A Scl,gr 2 DD HTN, [...] Real or Tata Meeks, RN, CCRC at [phone] [facility] RESEARCH OTHER*[id number] 04/12/2003 08/26/2009 Overview: Renamed Per Clinical Trials Billing Project. Pt is a participant in the [facility] (Consortium of Rheumatology Researchers of [place]) national data collection study. For further information please call Dr Alban Del Real or Tata Meeks, RN, CCRC at [phone] ABN CERVIX NEC-ANTEPART 11/24/200205/31 Elderly multigravida with [...] (Menactra) 03/13/2018 Pneumococcal Conjugate Vacci ne, 20-valent ([id number]) 04/06/2022 SARS-COV-2 (COVID-19) Vaccine Unspecified 2021 Seasonal [...] PM EDT Office Visit General Internal Medicine [facility] [address] [place] [address] Raven Agrawal MD [address] [facility] [place] [address] 07/22/2023 1:30 PM EDT Office Visit Cardiology, [facility] [address] [place] [address] Kaushal Solis PA-C [address] [place] [address] 08/10/2023 1:00 PM EDT Office Visit Sleep Disorders Ctr [facility] [address] [place] [phone] Patricia Guevara DO [address] [place] [address] 10/13/2023 5:00 PM EDT Office Visit General Internal Medicine [facility] [address] [place] [address] Raven Agrawal MD [address] [facility] [place] [address] 12/24/2023 1:00 PM EDT Imaging Radiology [facility] 1st [facility] [address] [place] [address] Scheduled Procedures Name Priority Associated Diagnoses Date/Ti [...] Cancer Screening 02/03/2028 Lipid Panel 04/20/2028 04/20/2023, 0 08/2022, 04/03/2022, Additional history exists DTaP,Tdap,and Td [...] filedocumented as of this encounter Care Teams Surveillance Manager Relationship Specialty Start Date End Date Raven Agrawal MD [address] [place] [address] PCP - General Internal Medicine 12/27/17 documented as of this encounter
--- OUTSIDE RECORDS SUMMARY | 2023-05-29 12:40 | External Medical Summary ---
Author Name Unknown Address Unknown Organization K09[facility] [place] [address] Laboratory Report Ordering Provider Test Date Status ANGEL SMALL 05/13/2023 06:23:58 Final Observation Date Value Abnormality Reference (Units ) Status BUN 05/13/2023 06:23:58 11 6-20 (mg/dL) Final Creatinine 05/13/2023 06:23:58 0.9 0.5-1.0 (mg/dL) Final Glomerular filtration rate/1.73 sq M.predicted [Volume Rate/Area] in Serum, Plasma or Blood by Creatinine-based formula (CKD-EPI) 05/13/2023 06:23:58 74 >=60 (mL/min) Final eGFR is calculated based on the CKD-EPI 2020 equation SODIUM 05/13/2023 06:23:58 142 135-146 (m mol/L) Final Potassium 05/13/2023 06:23:58 4.2 3.5-5.1 (m mol/L) Final Cl 05/13/2023 06:23:58 103 98-107 (mm ol/L) Final CO2 05/13/2023 06:23:58 27 22-32 (mmo l/L) Final Anion gap 05/13/2023 06:23:58 12 7-15 (mmol /L) Final Glucose 05/13/2023 06:23:58 184 Above high normal 70 -120 (mg/dL) Final Calcium 05/13/2023 06:23:58 9.2 8.4-10.2 ( mg/dL) Final Performing Location [facility] [place] [address]
--- OUTSIDE RECORDS SUMMARY | 2023-05-29 12:40 | External Medical Summary | Summary of Care ---
Author Name Unknown Organization [facility] Address [address] [place] [place] [address] Phone [phone] Care Team Providers Care Computer Systems Support Specialist Name Role Phone Raven Agrawal MD Primary Care Provider [phone] Reason for Visit * Reason Onset Date Comments Fax 04/28/2023 Encounter Details Date Type Department Care Team (Late st Contact Info) Description 04/28/2023 Telephone General Internal Medicine [facility] [place] [address] [facility] [place] [address] Raven Agrawal MD [address] [facility] [place] [address] Fax Allergies No known active allergiesdocumented as of this encounter (statuses as of 04/29/2023) Medications Medication Sig Dispensed Refills Start Date End Date Status VITAMIN D 2000 UNIT PO TABS one tablet daily] 0 Active KEVZARA 200 MG/1.14ML SOSY Injection every other week 0 09/20/2017 Active Multiple Vitamin (MULTI-DAY) Tablet Take 1 Tab by mouth daily. 0 Active aspirin enteric coated 81 MG TBECIndications:Mixe d dyslipidemia,Subclav cammy artery stenosis, right (HCC) Take 1 Tab by mouth daily. St 09/16 100 Tab 3 01/03/2019 Active Meloxicam 15 MG Tablet Take 1 Tablet by mouth every evening. 0 03/03/2019 Active traMADol (ULTRAM) 50 MG Tablet Take 1 Tablet by mouth daily as needed for Pain. 1 Tab 0 07/04/2019 Active zolpidem (AMBIEN) 10 MG TabletIndications:Pe rsistent insomnia Take 1 Tablet by mouth at bedtime. DrMurphy 7 Tab 0 07/04/2019 Active Melatonin ER 1 MG TBCRIndications:Pers istent insomnia at bedtime 0 10/02/2019 Active Ipratropium-Albutero l 0.5-2.5 (3) MG/3ML Inhalation Solution (Duoneb)Indications: COPD exacerbation (HCC),Bronchitis, complicated Inhale 3 mL via [...] BY MOUTH EVERY DAY 90 Tablet 3 05/22/2022 Active amLODIPine Besylate 2.5 MG Oral Tablet (Norvasc)Indications :HTN, goal below 130/80,LVH (left ventricular hypertrophy) due to hypertensive disease, without heart failure TAKE 1 TABLET BY MOUTH EVERY DAY 90 Tablet 4 07/24/2022 Active DULoxetine HCl 60 MG Oral Capsule Delayed Release Particles (Cymbalta)Indication s:Major depressive disorder with single episode, in remission ([facility]),Type 2 diabetes mellitus with diabetic neuropathy, without long-term current use of insulin ([facility]),Cervical spinal stenosis,Cervical spondylosis TAKE 1 CAPSULE BY MOUTH IN THE MORNING 90 Capsule 1 11/03/2022 Active Fluticasone-Umeclidi n-Vilant 100-62.5-25 MCG/ACT Aerosol Powder Breath Activated (Trelegy Ellipta)Indications: Hospital discharge follow-up,COPD exacerbation (HCC),Rhinovirus infection,COPD, moderate (HCC) Inhale 1 Puff by mouth in the morning. Start 11/27/2022 and stop symbicort (cancel Rx anoro ellipta). 60 Blister Dosing Unit 5 11/27/2022 Active Rosuvastatin Calcium 10 MG Oral Tablet (Crestor)Indications :Type 2 diabetes mellitus with diabetic neuropathy, without long-term current use of insulin ([facility]),Mixed dyslipidemia TAKE 1 TABLET BY MOUTH EVERY DAY 90 Tablet 2 12/23/2022 Active Janumet XR 50-1000 MG Oral Tablet Extended Release 24 Hour (SITagliptin-metFORM IN HCl ER)Indications:Type 2 diabetes mellitus with hemoglobin A1c goal of less than 7.0% ([facility]),Type 2 diabetes mellitus with diabetic neuropathy, unspecified ([facility]) TAKE 1 TABLET BY MOUTH TWICE A DAY 180 Tablet 3 02/04/2023 Active Lisinopril 10 MG Oral Tablet (Prinivil)Indication s:Type 2 diabetes mellitus with hemoglobin A1c goal of less than 7.0% ([facility]),LVH (left ventricular hypertrophy) due to hypertensive disease, without heart failure,HTN, goal below 130/80 TAKE 1 TABLET BY MOUTH EVERY DAY 90 Tablet 1 03/10/2023 Active Varenicline Tartrate 1 MG Oral TabletIndications:Gr anulomatous lung disease ([facility]),COPD, group B, by GOLD 2017 classification ([facility]),Tobacco use disorder 0.5 mg Daily x 3 days, then twice daily x 4 days, then 1 mg twice daily -- restart week prior to quit date which she is to decide on 60 Tablet 3 04/14/2023 Active Gabapentin 600 MG Oral Tablet (Neurontin)Indicatio ns:Type 2 diabetes mellitus with diabetic neuropathy, without long-term current use of insulin ([facility]) TAKE 1 TABLET IN MORNING, 1.5 TABLET AT NOON AND 1.5 TABLET BEFORE BEDTIME 360 Tablet 1 04/14/2023 Active Ketoconazole 2 % External CreamIndications:Gurmeet orrheic dermatitis Apply to affected areas twice daily-nasolabial folds x2-4 wks, then as needed 30 g 1 04/14/2023 Active Hospital, Clinic, or Other Facility Administered Medication Ordered Dose Route Frequency Start Date End Date Status Albuterol Sulfate (Proventil) (2.5 MG/3ML) 0.083% inhalation solution 2.5 mgIndications:COPD, moderate ([facility]) 2.5 mg NEBULIZER PRN 12/29/2022 12/29/2023 Active documented as of this encounter (statuses as of 04/29/2023) Active Problems Problem Noted Date Diagnosed Date Type 2 diabetes mellitus wit h diabetic neuropathy, without long-term current use of insulin 10/06/2022 Mixed dyslipidemia 10/06/2022 COPD, group B, by GOLD 2017 classification 06/08 Overview: Per COPD GOLD Classification Granulomatous lung disease 06/27/2021 Dense breast tissue on mammogram 01/06/2019 Overview: 01/17; Tobacco use disorder 06/09/2018 Elevated hemoglobin 04/04/2018 Overview: 04/1984-TiWvsu-wfv EPO, ferritin,Tsat, neg JAK2 mutn LVH (left ventricular hypert rophy) due to hypertensive disease, without heart failure 12/27/2017 Overview: 06/1739-qwss-xz86%, no WMabn,mild A Scl,gr 2 DD HTN, [...] as of this encounter (statuses as of 04/29/2023) Resolved Problems Problem Noted Date Diagnosed Date [...] 06/22/2017 07/21/2017 Undiagnosed cardiac murmurs 03/11/2011 06/22/2017 #[id number]\[id number]\[id number] 04/12/2003 Overview: Renamed Per Clinical Trials Billing Project. Pt is a participant in the [facility] (Consortium of Rheumatology Researchers of [place]) national data collection study. For further information please call Dr Alban Del Real or Tata Meeks, RN, CCRC at [phone] [facility] RESEARCH OTHER*[id number] 04/12/2003 08/26/2009 Overview: Renamed Per Clinical Trials Billing Project. Pt is a participant in the [facility] (Consortium of Rhe[employer]ology Researchers [place]) national data collection study. For further information please call Dr Alban Del Real or Tata Meeks, RN, CCRC at [phone] ABN CERVIX NEC-ANTEPART 11/24/200205/31 Elderly multigravida with an tepartum condition or complication 10/10/2002 06/22/2017 Arthritis, rheumatoid 2017 DIABETES-ANTEPARTUM 06/23/19 18 documented as of this encounter (statuses as of 04/29/2023) Immunizations Name Administration Dates Next Due COVID-19 [...] (Menactra) 03/13/2018 Pneumococcal Conjugate Vacci ne, 20-valent ([id number]) 04/06/2022 Pneumococcal Polysaccharide PPV23 (Pneumovax) 03/16/2005 SARS-COV-2 [...] OSA - 04/29/2023 11:42 AM EST Advised logan Valencia no update on faxed received. Adv it can take a process once fax is receivedand forms filled out by doctor. We will notify once we have an update. * Telephone Encounter - MartinezAleja zapata CPhT - 04/28/2023 10:57 AM EST Pt's [...] any questions caller can be reached at [phone]. Please advise. Thank you, Steph Martinez CPhT Vice President Of Development II [facility] Services ([facility]) (Formerly Telepharmacy) 04/28/2023,11:01 AM documented in this encounter Plan of Treatment Upcoming Encounters Date Type Department Care Team (Late st Contact Info) Description 05/05/2023 1:40 PM EST [facility] [address] [place] [address] Lonny Gtz MD [address] [place] [address] 05/24/2023 11:00 AM EDT Cardiac Studies [facility] [place] [address] [place] [address] 05/24/2023 3:00 PM EDT Office Visit Hematology/Oncology [facility] [place] [address] [facility] [phone] Fatimah Quintero CRNP [address] [place] [address] 08/10/2023 1:00 PM EDT Office Visit [facility] [place] [address] [place] [phone] Patricia Guevara, [address] [place] [address] 10/13/2023 5:00 PM EDT Office Visit General [facility] [address] [place] [address] Raven Agrawal MD [address] [facility] [place] [address] 12/24/2023 1:00 PM EDT Imaging Radiology [address] [place] [address] Scheduled Procedures Name Priority Associated Diagnoses Date/Ti [...] 09/20/2020 LUNG CANCER SCREENING - USE SMARTSET 30418 Completed 03/23/2022, 09/16/2021, 09/16/2020, Additional history exists Pneumococcal Vaccine: Pediatrics (0 to 5 Years) and At-Risk Patients (6 to 64 Years) Completed 04/06/2022, 03/16/2005 GARDASIL-HPV IMMUNIZATION SERIES Aged Out No longer eligible based on patient's age to complete this topic documented as of this encounter Medical Devices Not on filedocumented as of this encounter Care Teams Computer Systems Support Specialist Relationship Specialty Start Date End Date Raven Agrawal MD [address] [place] [address], [place] [address] PCP - General Internal Medicine 12/27/17 documented as of this encounter
--- OUTSIDE RECORDS SUMMARY | 2023-05-29 12:40 | External Medical Summary | Summary of Care ---
Author Name Unknown Organization [facility] Address [address] [facility] [place] [address] Phone [phone] Care Team Providers Care Freight Elevator Operator Name Role Phone Raven Agrawal MD Primary Care Provider [phone] Reason for Visit * Reason Comments eRx-Medication Refill Encounter Details Date Type Department Care Team (Late st Contact Info) Description 05/02/2023 Refill General Internal Medicine [facility] [place] [address] [facility] [place] [address] Raven Agrawal MD [address] [facility] [place] [address] Major depressive disorder with single episode, in remission ([facility]); Type 2 diabetes mellitus with diabetic neuropathy, without long-term current use of insulin ([facility]); Cervical spinal stenosis; Cervical spondylosis Allergies No known active allergiesdocumented as of this encounter (statuses as of 05/03/2023) Medications Medication Sig Dispensed Refills Start Date [...] as needed for Pain. 1 Tab 0 05/05/202 0 Active zolpidem (AMBIEN) 10 MG TabletIndications:P ersistent insomnia Take 1 Tablet by mouth at bedtime. DrMurphy 7 Tab 0 0 Active Melatonin ER [...] A1c goal of less than 7.0% ([facility]),Type 2 diabetes mellitus with diabetic neuropathy, unspecified ([facility]) TAKE 1 TABLET BY MOUTH TWICE A DAY 180 Tablet 3 3 Active Lisinopril 10 MG Oral Tablet (Prinivil)Renuo ns:Type 2 diabetes mellitus with hemoglobin A1c goal of less than 7.0% ([facility]),LVH (left ventricular hypertrophy) due to hypertensive disease, without heart failure,HTN, goal below 130/80 TAKE 1 TABLET BY MOUTH EVERY DAY 90 Tablet 1 4 Active Varenicline Tartrate 1 MG Oral TabletIndications:G ranulomatous lung disease ([facility]),COPD, group B, by GOLD 2017 classification ([facility]),Tobacco use disorder 0.5 mg Daily x 3 days, then twice daily x 4 days, then 1 mg twice daily -- restart week prior to quit date which she is to decide on 60 Tablet 3 4 Active Gabapentin 600 MG Oral Tablet (Neurontin)Indicati ons:Type 2 diabetes mellitus with diabetic neuropathy, without long-term current use of insulin ([facility]) TAKE 1 TABLET IN MORNING, 1.5 TABLET AT NOON AND 1.5 TABLET BEFORE BEDTIME 360 Tablet 1 4 Active Ketoconazole 2 % External CreamIndications:Se borrheic dermatitis Apply to affected areas twice daily-nasolabia l folds x2-4 wks, then as needed 30 g 4 Active DULoxetine HCl 60 MG Oral Capsule Delayed Release Particles (Cymbalta)Radhatio ns:Major depressive disorder with single episode, in remission ([facility]),Type 2 diabetes mellitus with diabetic neuropathy, without long-term current use of insulin ([facility]),Cervical spinal stenosis,Cervical spondylosis TAKE 1 CAPSULE BY MOUTH EVERY MORNING 90 Capsule 1 4 Active DULoxetine HCl 60 MG Oral Capsule Delayed Release Particles (Cymbalta)Indicatio ns:Major depressive disorder with single episode, in remission ([facility]),Type 2 diabetes mellitus with diabetic neuropathy, without long-term current use of insulin ([facility]),Cervical spinal stenosis,Cervical spondylosis TAKE 1 CAPSULE BY MOUTH IN THE MORNING 90 Capsule 1 3 05/03/19 24 Discontinued Hospital, Clinic, or Other Facility Administered Medication Ordered Dose Route Frequency Start Date End Date Status Albuterol Sulfate (Proventil) (2.5 MG/3ML) 0.083% inhalation solution 2.5 mgIndications:COPD, moderate (HCC) 2.5 mg NEBULIZER PRN 12/29/2022 12/29/2023 Active documented as of this encounter (statuses as of 05/03/2023) Active Problems Problem Noted Date Diagnosed Date Type 2 diabetes mellitus wit h diabetic neuropathy, without long-term current use of insulin 10/06/2022 Mixed dyslipidemia 10/06/2022 COPD, group B, by GOLD 2017 classification 06/08 Overview: Per COPD GOLD Classification Granulomatous lung disease 06/27/2021 Dense breast tissue on mammogram 01/06/2019 Overview: 01/17; Tobacco use disorder 06/09/2018 Elevated hemoglobin 04/04/2018 Overview: 04/1995-RlGbmu-hsg EPO, ferritin,Tsat, neg JAK2 mutn LVH (left ventricular hypert rophy) due to hypertensive disease, without heart failure 12/27/2017 Overview: 06/1755-qhrp-uu31%, no WMabn,mild A Scl,gr 2 DD HTN, [...] as of this encounter (statuses as of 05/03/2023) Resolved Problems Problem Noted Date Diagnosed Date [...] Project. Pt is a participant in the [facility] (Consortium of Rheumatology Researchers of [place]) national data collection study. For further information please call Dr Alban Del Real or Tata Meeks, RN, CCRC at [phone] [facility] RESEARCH OTHER*[id number] 04/12/2003 08/26/2009 Overview: Renamed Per Clinical Trials Billing Project. Pt is a participant in the [facility] (Consortium of Rheumatology Researchers of [place]) national data collection study. For further information please call Dr Alban Del Real or Tata Meeks, RN, CCRC at [phone] ABN CERVIX NEC-ANTEPART 11/24/200205/31 Elderly multigravida with an tepartum condition or complication 10/10/2002 06/22/2017 Arthritis, rheumatoid 2017 DIABETES-ANTEPARTUM 06/23/19 18 documented as of this encounter (statuses as of 05/03/2023) Immunizations Name Administration Dates Next Due COVID-19 [...] (Menactra) 03/13/2018 Pneumococcal Conjugate Vacci ne, 20-valent ([id number]) 04/06/2022 SARS-COV-2 (COVID-19) Vaccine Unspecified 2021 Seasonal [...] encounter Miscellaneous Notes * Telephone Encounter - Conrad Dillon [facility] - 05/03/2023 6:14 PM EST Signed Prescriptions: Disp Refills DULoxetine HCl 60 MG Oral Capsule Delayed *90 Cap*1 Sig: TAKE 1 CAPSULE BY MOUTH EVERY MORNINGAuthorizing Provider: Francis AGRAWAL User: CONRAD DILLON- documented in this encounter Plan of Treatment Upcoming Encounters Date Type Department Care Team (Late st Contact Info) Description 05/05/2023 1:40 PM EST Office Visit Pulmonary Medicine, [facility] [address] [facility] [place] [address] Lon[facility]tz [facility] [address] [facility] [address] 05/24/2023 11:00 AM EDT Cardiac Studies Cardiac Studies, [facility] [address] [facility] [place] [address] 05/24/2023 3:00 PM EDT Office Visit Hematology/Oncology [facility] [address] [facility] [phone] Fatimah Quintero CRNP [address] [facility] [place] [address] 08/10/2023 1:00 PM EDT Office Visit Sleep Disorders [facility]tr [facility] [address] [facility] [place] [phone] Patricia Guevara DO [address] [place] [address] 10/13/2023 5:00 PM EDT Office Visit General Internal Medicine [facility] [address] [facility] [place] [address] Raven Agrawal MD [address] [facility] [place] [address] 12/24/2023 1:00 PM EDT Imaging Radiology [facility] [address] [facility] [place] [address] [place] [address] Scheduled Procedures Name Priority Associated Diagnoses Date/Ti me COLONOSCOPY FLEXIBLE PROXIMA L DIAGNOSTIC Recall Screening for malignant neoplasm of colon Health Maintenance Due Date Last Done Comments HPV/Co-Test 1996 Cologuard 09/13/2011 Fecal Occult Blood Test 09/13/2011 Sigmoidoscopy 09/13/2011 DISCUSS TOBACCO CESSATION (REFER TO SMARTSET #8694) 06/27/2022 06/27/2021, 06/13/2020 COVID-19 Vaccine ( season) [...] 09/20/2020 LUNG CANCER SCREENING - USE SMARTSET [id number] Completed 03/23/2022, 09/16/2021, 09/16/2020, Additional history exists Pneumococcal Vaccine: Pediatrics (0 to 5 Years) and At-Risk Patients (6 to 64 Years) Completed 04/06/2022, 03/16/2005 GARDASIL-HPV IMMUNIZATION SERIES Aged Out No longer eligible based on patient's age to complete this topic documented as of this encounter Medical Devices Not on filedocumented as of this encounter Visit Diagnoses Diagnosis Major depressive disorder with single episode, in remission (HCC) Type 2 diabetes mellitus with diabetic neuropathy, without long-term current use of insulin (HCC) Cervical spinal stenosis Spinal stenosis in cervical region Cervical spondylosis Cervical spondylosis without myelopathy documented in this encounter Care Teams Freight Elevator Operator Relationship Specialty Start Date End Date Raven Agrawal MD [address] [place] [address] PCP - General Internal Medicine 12/27/17 documented as of this encounter
--- OUTSIDE RECORDS SUMMARY | 2023-05-29 12:40 | External Medical Summary | Summary of Care ---
Author Name Unknown Organization [facility] Address [address] [facility] [address] Phone [phone] Care Team Providers Care Lollypop Machine Operator Name Role Phone Raven Agrawal MD Primary Care Provider [phone] Encounter Details Date Type Department Care Team (Late st Contact Info) Description 05/10/2023 Orders Only General Internal Medicine [facility] [place] [address] [facility] [place] [address] Raven Agrawal MD 200 [facility] [place] [address] Allergies No known active allergiesdocumented as of this encounter (statuses as of 05/10/2023) Medications Medication Sig Dispensed Refills Start Date [...] EVERY DAY 90 Tablet 4 07/24/2022 Active Fluticasone-Umeclidi n-Vilant 100-62.5-25 MCG/ACT Aerosol Powder [...] hemoglobin A1c goal of less than 7.0% (HCC),Type 2 diabetes mellitus with diabetic neuropathy, unspecified (HCC) TAKE 1 TABLET BY MOUTH TWICE A DAY 180 Tablet 3 02/04/2023 Active Lisinopril 10 MG Oral Tablet (Prinivil)Indication s:Type 2 diabetes mellitus with hemoglobin A1c goal of less than 7.0% ([facility]),LVH (left ventricular hypertrophy) due to hypertensive disease, without heart failure,HTN, goal below 130/80 TAKE 1 TABLET BY MOUTH EVERY DAY 90 Tablet 1 03/10/2023 Active Varenicline Tartrate 1 MG Oral TabletIndications:Gr anulomatous lung disease ([facility]),COPD, group B, by GOLD 2017 classification ([facility]),Tobacco use disorder 0.5 mg Daily x 3 days, then twice daily x 4 days, then 1 mg twice daily -- restart week prior to quit date which she is to decide on 60 Tablet 3 04/14/2023 Active Gabapentin 600 MG Oral Tablet (Neurontin)Indicatio ns:Type 2 diabetes mellitus with diabetic neuropathy, without long-term current use of insulin ([facility]) TAKE 1 TABLET IN MORNING, 1.5 [...] with single episode, in remission ([facility]),Type 2 diabetes mellitus with diabetic neuropathy, without long-term current use of insulin ([facility]),Cervical spinal stenosis,Cervical spondylosis TAKE 1 CAPSULE BY MOUTH EVERY MORNING 90 Capsule 1 05/03/2023 Active Hospital, Clinic, or Other Facility Administered Medication Ordered Dose Route Frequency Start Date End Date Status Albuterol Sulfate (Proventil) (2.5 MG/3ML) 0.083% inhalation solution 2.5 mgIndications:COPD, moderate ([facility]) 2.5 mg NEBULIZER PRN 12/29/2022 12/29/2023 Active documented as of this encounter (statuses as of 05/10/2023) Active Problems Problem Noted Date Diagnosed Date Type 2 diabetes mellitus wit h diabetic neuropathy, without long-term current use of insulin 10/06/2022 Mixed dyslipidemia 10/06/2022 COPD, group B, by GOLD 2017 classification 06/08 Overview: Per COPD GOLD Classification Granulomatous lung disease 06/27/2021 Dense breast tissue on mammogram 01/06/2019 Overview: 01/17; Tobacco use disorder 06/09/2018 Elevated hemoglobin 04/04/2018 Overview: 04/1935-WfNyzi-dva EPO, ferritin,Tsat, neg JAK2 mutn LVH (left ventricular hypert rophy) due to hypertensive disease, without heart failure 12/27/2017 Overview: 06/1794-uedl-cz37%, no WMabn,mild A Scl,gr 2 DD HTN, [...] as of this encounter (statuses as of 05/10/2023) Resolved Problems Problem Noted Date Diagnosed Date [...] Project. Pt is a participant in the [facility] (Consortium of Rheumatology Researchers of [place]) national data collection study. For further information please call Dr Alban Del Real or Tata Meeks, RN, CCRC at [phone] [facility] RESEARCH OTHER*[id number] 04/12/2003 08/26/2009 Overview: Renamed Per Clinical Trials Billing Project. Pt is a participant in the [facility] (Consortium of Rheumatology Researchers of [facility]) national data collection study. For further information please call Dr Alban Del Real or Tata Meeks, RN, CCRC at [phone] ABN CERVIX NEC-ANTEPART 11/24/200205/31 Elderly multigravida with an tepartum condition or complication 10/10/2002 06/22/2017 Arthritis, rheumatoid 2017 DIABETES-ANTEPARTUM 06/23/19 18 documented as of this encounter (statuses as of 05/10/2023) Immunizations Name Administration Dates Next Due COVID-19 [...] (Menactra) 03/13/2018 Pneumococcal Conjugate Vacci ne, 20-valent ([id number]) 04/06/2022 SARS-COV-2 (COVID-19) Vaccine Unspecified 2021 Seasonal [...] 11:00 AM EDT Cardiac Studies Cardiac Studies, [facility] [address] [facility] [place] [address] 05/24/2023 3:00 PM EDT Office Visit Hematology/Oncology [facility] [address] Fatimah Quintero CRNP [address] [place] [address] 08/10/2023 1:00 PM EDT Office Visit Sleep Disorders Ctr [facility] [address] [place] [address] Patricia Guevara DO [address] [place] [address] 10/13/2023 5:00 PM EDT Office Visit General Internal Medicine [facility] [address] [place] [address] Raven Agrawal MD [address] [place] [address] 12/24/2023 1:00 PM EDT Imaging Radiology [address] [place] [address] Scheduled Procedures Name Priority Associated Diagnoses Date/Ti [...] 10/05/2022, 020 04/2022, 10/21/2021, Additional history exists *NEPHROLOGY REFERRAL DUE TO RESISTANT HTN 04/17/2023 Cervical Cancer Screening 09/25/2023 Pap Smear 09/25/2023 09/24/2020, 05/31, 03/30/2014, Additional history exists B-12 10/06/2023 10/05/2022, 03/02, 07/04/2019, Additional history exists Mammogram 12/18/2023 12/17/2022, 1006/2021, 10/09/2020, Additional history exists O2 ASSESSMENT COMPLETED IN PAST YEAR FOR COPD 01/07/2024 01/06/2023 GFR 05/05/2024 05/06/2023, 04/02, 10/05/2022, Additional history exists Lipid Panel 10/06/2027 04/20/2023, 080 08/2022, 04/03/2022, Additional history exists Colonoscopy 02/03/2028 02/02/2018, 02/02/2018 [...] 09/20/2020 LUNG CANCER SCREENING - USE SMARTSET 85716 Completed 03/23/2022, 09/16/2021, 09/16/2020, Additional history exists [...] Priority Date/Time Associated Diagnosis Comments CHEMISTRY-OUTSIDE Routine 04/20/2023 documented in this encounter Results * (ABNORMAL) CHEMISTRY-OUTSIDE (04/20/2023) Not all results display below - see scan for full detail OUTSIDE LAB (SEE SCANNED REPORT) Comment:SCAN INCL: CHEM 3,CR P4,LIPIDS,SED RATE,CBCD CREATININE-OUTSID E LAB 0.70 0.52 - 1.04 MG/DL OUTSIDE LAB (SEE SCANNED REPORT) EGFR-OUTSIDE LAB 86.6 >60 ML/MIN OU TSIDE LAB (SEE SCANNED REPORT) POTASSIUM-OUTSIDE LAB OUTSIDE LAB (SEE SCANNED REPORT) GLUCOSE-OUTSIDE LAB OUTSIDE LAB (SEE SCANNED REPORT) HOURS FASTING OUTSID E LAB (SEE SCANNED REPORT) TRIGLYCERIDES-OUT SIDE LAB 294(A) 0 - 150 MG/DL OUTSIDE LAB (SEE SCANNED REPORT) CHOLESTEROL-OUTSI DE LAB 109 0 - 200 MG/DL OUTSIDE LAB (SEE SCANNED REPORT) HDL-OUTSIDE LAB 32.0(A) 40 - 65 MG/DL OUTSIDE LAB (SEE SCANNED REPORT) CHOL/HDL RATIO-OUTSIDE LAB 3.4 OUTSIDE LA B (SEE SCANNED REPORT) LDL (CALCULATED)-OUTS CORY LAB 18.0 0 - 130 MG/DL OUTSIDE LAB (SEE SCANNED REPORT) LDL (DIRECT MEASURE)-OUTSIDE LAB OUTSIDE LAB (SEE SCANNED REPORT) HEMOGLOBIN, S9O-ROFEZPM LAB OUTSIDE LAB (SEE SCANNED REPORT) PHOSPHORUS-OUTSID E LAB OUTSIDE LAB (SEE SCANNED REPORT) PTH-OUTSIDE LAB OUTS CORY LAB (SEE SCANNED REPORT) MICROALBUMIN RATIO-OUTSIDE LAB OUTSIDE LA B (SEE SCANNED REPORT) PROTEIN, UA-OUTSIDE LAB OUTSIDE LAB (SEE SCANNED REPORT) HEMOGLOBIN-OUTSID E LAB 16.5(A) 11.1 - 15.9 G/DL OUTSIDE LAB (SEE SCANNED REPORT) 04/20/2023 History Per Patient LABORATORY OUTSIDE LAB (SEE SCANNED REPORT) documented in this encounter Care Teams Lollypop Machine Operator Relationship Specialty Start Date End Date Raven Agrawal MD [address] [facility] [place] [address] PCP - General Internal Medicine 12/27/17 documented as of this encounter
--- OUTSIDE RECORDS SUMMARY | 2023-05-29 12:40 | External Medical Summary | Summary of Care ---
Author Name Unknown Organization [facility] Address [address] [place] [place] [address] Phone [phone] Care Team Providers Care Medication Nurse Name Role Phone Raven Agrawal MD Primary Care Provider [phone] Reason for Visit * Reason Onset Date Comments Fax 04/28/2023 Encounter Details Date Type Department Care Team (Late st Contact Info) Description 04/28/2023 Telephone General Internal Medicine [facility] [place] [address] [facility] [place] [address] Raven Agrawal MD [address] [facility] [place] [address] Fax Allergies No known active allergiesdocumented as of this encounter (statuses as of 04/28/2023) Medications Medication Sig Dispensed Refills Start Date [...] with single episode, in remission ([facility]),Type 2 diabetes mellitus with diabetic neuropathy, without long-term current use of insulin ([facility]),Cervical spinal stenosis,Cervical spondylosis TAKE 1 CAPSULE [...] long-term current use of insulin ([facility]),Mixed dyslipidemia TAKE 1 TABLET BY MOUTH EVERY DAY 90 Tablet 2 12/23/2022 Active Janumet XR 50-1000 MG Oral Tablet Extended Release 24 Hour (SITagliptin-metFORM IN HCl ER)Indications:Type 2 diabetes mellitus with hemoglobin A1c goal of less than 7.0% ([facility]),Type 2 diabetes mellitus with diabetic neuropathy, unspecified ([facility]) TAKE 1 TABLET BY MOUTH TWICE A DAY 180 Tablet 3 02/04/2023 Active Lisinopril 10 MG Oral Tablet (Prinivil)Indication s:Type 2 diabetes mellitus with hemoglobin A1c goal of less than 7.0% ([facility]),LVH (left ventricular hypertrophy) due to hypertensive disease, without heart failure,HTN, goal below 130/80 TAKE 1 TABLET BY MOUTH EVERY DAY 90 Tablet 1 03/10/2023 Active Varenicline Tartrate 1 MG Oral TabletIndications:Gr anulomatous lung disease ([facility]),COPD, group B, by GOLD 2017 classification ([facility]),Tobacco use disorder 0.5 mg Daily x 3 days, then twice daily x 4 days, then 1 mg twice daily -- restart week prior to quit date which she is to decide on 60 Tablet 3 04/14/2023 Active Gabapentin 600 MG Oral Tablet (Neurontin)Indicatio ns:Type 2 diabetes mellitus with diabetic neuropathy, without long-term current use of insulin ([facility]) TAKE 1 TABLET IN MORNING, 1.5 [...] MG/3ML) 0.083% inhalation solution 2.5 mgIndications:COPD, moderate ([facility]) 2.5 mg NEBULIZER PRN 12/29/2022 12/29/2023 Active documented as of this encounter (statuses as of 04/28/2023) Active Problems Problem Noted Date Diagnosed Date Type 2 diabetes mellitus wit h diabetic neuropathy, without long-term current use of insulin 10/06/2022 Mixed dyslipidemia 10/06/2022 COPD, group B, by GOLD 2017 classification 06/08 Overview: Per COPD GOLD Classification Granulomatous lung disease 06/27/2021 Dense breast tissue on mammogram 01/06/2019 Overview: 01/17; Tobacco use disorder 06/09/2018 Elevated hemoglobin 04/04/2018 Overview: 04/1960-ZaFjeo-xdd EPO, ferritin,Tsat, neg JAK2 mutn LVH (left ventricular hypert rophy) due to hypertensive disease, without heart failure 12/27/2017 Overview: 06/1717-uycp-re58%, no WMabn,mild A Scl,gr 2 DD HTN, [...] as of this encounter (statuses as of 04/28/2023) Resolved Problems Problem Noted Date Diagnosed Date [...] Project. Pt is a participant in the [facility] (Consortium of Rheumatology Researchers of [place]) national data collection study. For further information please call Dr Alban Del Real or Tata Meeks, RN, CCRC at [phone] [facility] RESEARCH OTHER*[id number] 04/12/2003 08/26/2009 Overview: Renamed Per Clinical Trials Billing Project. Pt is a participant in the [facility] (Consortium of Rheumatology Researchers of [place]) national data collection study. For further information please call Dr Alban Del Real or Tata Meeks, RN, CCRC at [phone] ABN CERVIX NEC-ANTEPART 11/24/200205/31 Elderly multigravida with an tepartum condition or complication 10/10/2002 06/22/2017 Arthritis, rheumatoid 2017 DIABETES-ANTEPARTUM 06/23/19 18 documented as of this encounter (statuses as of 04/28/2023) Immunizations Name Administration Dates Next Due COVID-19 [...] (Menactra) 03/13/2018 Pneumococcal Conjugate Vacci ne, 20-valent ([id number]) 04/06/2022 SARS-COV-2 (COVID-19) Vaccine Unspecified 2021 Seasonal [...] encounter Miscellaneous Notes * Telephone Encounter - Aleja Martinez, chief crna - 04/28/2023 10:57 AM EST Pt's daughter [...] any questions caller can be reached at [phone]. Please advise. Thank you, Steph Martinez CPhT Fire Extinguisher Installer II Centralized [facility] Pharmacy Services (CCPS) (Formerly Telepharmacy) 04/28/2023,11:01 AM documented in this encounter Plan of Treatment Upcoming Encounters Date Type Department Care Team (Late st Contact Info) Description 05/05/2023 1:40 PM EST [facility] [address] [facility] [place] [address] Lonny Gtz MD [address] [place] [address] 05/24/2023 11:00 AM EDT [facility] [place] [address] [facility] [place] [address] 05/24/2023 3:00 PM EDT Office Visit Hematology/Oncology [address] [phone] Fatimah Quintero CRNP [address] [place], [place] [address] [address] 08/10/2023 1:00 PM EDT Office Visit [facility] Disorders Ctr [facility] [place] [address] [facility] [place] [phone] Patricia Guevara DO [address] [place] [address] 10/13/2023 5:00 PM EDT Office Visit General Internal Medicine [facility] [place] [address] Raven Agrawal MD 200 [facility] [place] [address] 12/24/2023 1:00 PM EDT Imaging Radiology [address], [place] [address] [place] [id number] Scheduled Procedures Name Priority Associated Diagnoses Date/Ti me COLONOSCOPY FLEXIBLE PROXIMA L DIAGNOSTIC Recall Screening for malignant neoplasm of colon Health Maintenance Due Date Last Done Comments HPV/Co-Test 1996 Cologuard 09/13/2011 Fecal Occult Blood Test 09/13/2011 Sigmoidoscopy 09/13/2011 DISCUSS TOBACCO CESSATION (REFER TO SMARTSET #9785) 06/27/2022 06/27/2021, 06/13/2020 COVID-19 Vaccine ( season) [...] 09/20/2020 LUNG CANCER SCREENING - USE SMARTSET [id number] Completed 03/23/2022, 09/16/2021, 09/16/2020, Additional history exists Pneumococcal Vaccine: Pediatrics (0 to 5 Years) and At-Risk Patients (6 to 64 Years) Completed 04/06/2022, 03/16/2005 GARDASIL-HPV IMMUNIZATION SERIES Aged Out No longer eligible based on patient's age to complete this topic documented as of this encounter Medical Devices Not on filedocumented as of this encounter Care Teams Medication Nurse Relationship Specialty Start Date End Date Raven Agrawal MD [address] [place] [address] PCP - General Internal Medicine 12/27/17 documented as of this encounter
--- OUTSIDE RECORDS SUMMARY | 2023-05-29 12:40 | External Medical Summary | Summary of Care ---
Author Name Unknown Organization [facility] Address [address] [facility] [place] [address] Phone [phone] Care Team Providers Care Pad Machine Operator Name Role Phone Raven Agrawal MD Primary Care Provider [phone] Reason for Visit * Reason Onset Date Comments Fax 04/28/2023 Encounter Details Date Type Department Care Team (Late st Contact Info) Description 04/28/2023 Telephone General Internal Medicine [facility] [place] [address] [facility] [place] [address] Raven Agrawal MD 200 [facility] [place] [address] Fax Allergies No known active allergiesdocumented as [...] use of insulin ([facility]),Mixed dyslipidemia TAKE 1 TABLET BY [...] MG Oral TabletIndications:Gr anulomatous lung disease ([facility]),COPD, [...] 0.083% inhalation solution 2.5 mgIndications:COPD, moderate ([facility]) 2.5 mg NEBULIZER PRN 12/29/2022 [...] use disorder 06/09/2018 Elevated hemoglobin 04/04/2018 Overview: 04/1964-ShDbkp-gec EPO, ferritin,Tsat, neg JAK2 mutn LVH (left ventricular hypert rophy) due to hypertensive disease, without heart failure 12/27/2017 Overview: 06/1745-bobu-nt81%, no WMabn,mild A Scl,gr 2 DD HTN, [...] Project. Pt is a participant in the [facility] (Consortium of Rheumatology Researchers of [place]) national data collection study. For further information please call Dr Alban Del Real or Tata Meeks, RN, CCRC at [phone] [facility] RESEARCH OTHER*[id number] 04/12/2003 08/26/2009 Overview: Renamed Per Clinical Trials Billing Project. Pt is a participant in the [facility] (Consortium of Rheumatology Researchers of [place]) national data collection study. For further information please call Dr Alban Del Real or Tata Meeks, RN, CCRC at [phone] ABN CERVIX NEC-ANTEPART 11/24/200205/31 Elderly multigravida with [...] (Menactra) 03/13/2018 Pneumococcal Conjugate Vacci ne, 20-valent ([id number]) 04/06/2022 Pneumococcal Polysaccharide PPV23 (Pneumovax) 03/16/2005 SARS-COV-2 [...] any questions caller can be reached at [phone]. Please advise. Thank you, Steph Martinez CPhT Federal Agent II Centralized Clinical Pharmacy Services (CCPS) (Formerly Telepharmacy) 04/28/2023,11:01 AM documented in this encounter Plan of Treatment Upcoming Encounters Date Type Department Care Team (Late st Contact Info) Description 05/05/2023 1:40 PM EST [facility] [address] [place] [address] Lonny Gtz MD [address] [place] [address] 05/24/2023 11:00 AM EDT [facility] [place] [address] [address] 05/24/2023 3:00 PM EDT Office Visit Hematology/Oncology [facility] [place] [facility] [phone] Fatimah Quintero CRNP [address] [place] [address] 08/10/2023 1:00 PM EDT Office Visit [facility] Disorders Ctr [facility] [place] [address] [place] [phone] Patricia Guevara, [address] [place] [address] 10/13/2023 5:00 PM EDT Office Visit General Internal Medicine [facility] [address] [place] [address] Raven Agrawal MD [address] [facility] [place] [address] 12/24/2023 1:00 PM EDT Imaging Radiology [address] [place] [address] Scheduled Procedures Name Priority Associated Diagnoses Date/Ti [...] 09/20/2020 LUNG CANCER SCREENING - USE SMARTSET [id number] Completed 03/23/2022, 09/16/2021, 09/16/2020, Additional history exists Pneumococcal Vaccine: Pediatrics (0 to 5 Years) and At-Risk Patients (6 to 64 Years) Completed 04/06/2022, 03/16/2005 GARDASIL-HPV IMMUNIZATION SERIES Aged Out No longer eligible based on patient's age to complete this topic documented as of this encounter Medical Devices Not on filedocumented as of this encounter Care Teams Pad Machine Operator Relationship Specialty Start Date End Date Raven Agrawal MD [address] [place] [address], [place] [address] PCP - General Internal Medicine 12/27/17 documented as of this encounter
--- NOTE | 2023-05-29 12:41 | Emergency Department Note ---
Impression & Plan SIRS (systemic inflammatory response syndrome), UTI (urinary tract infection), Fever ED Provider Note NAME: PATRICK HAZEL AGE: 57 SEX: F : 1965 ARRIVES VIA: Ambulance INFORMANT: Patient ED PROVIDER(S): David Gregg MD CHIEF COMPLAINT: Fever PLAN: Disposition: Admit MEDICAL DECISION MAKING: The patient is a pleasant 57-year-old woman with a past medical history of COPD, rheumatoid arthritis, type 2 diabetes, MASHA, stills disease, [facility] following a fall down a flight of stairs where she had a left tibial plateau fracture, numerous pelvic fractures and subdural hematoma where she was subsequently discharged to acute rehab where she was discharged from and back to home approximately 10 days ago who presents to the emergency department via EMS from home for evaluation of fever with concern for UTI. The patient reports that her daughter who cares for her at home noticed her briefs were foul-smelling and suspected UTI. [facility] did perform a urinalysis that was consistent with infection and was started on an antibiotic. Review of the urine cultures demonstrates Klebsiella pneumonia which was intermediate to Macrobid. On evaluation the patient fatigued appearing but no distress, with temperature 37.6, heart in the 90s and vital signs otherwise stable. She appears clinically dry. EKG without overt acute ischemia. CXR negative for acute cardiopulmonary process per my personal preliminary review/interpretation. WBC, H/H and platelets within normal limits. Chemistry without metabolic acidosis per electrolytes without significant abnormality. Initial lactic acid 2.5, mildly elevated with repeat improved to 1.2. Magnesium 1.6 and electrolytes otherwise unremarkable. LFTs unremarkable. High-sensitivity troponin 8.4, within normal limits. Lipase not elevated. Procalcitonin is not elevated. UA does not show evidence of infection today however in the setting of recent antibiotic treatment which may have suboptimally been treated. Respiratory viral panel/[employer] was negative. CT of the abdomen pelvis was performed and demonstrates bladder wall thickening which is suggestive of cystitis in this clinical context. Blood cultures were obtained and patient was treated with empiric ceftriaxone which would be effective per the patient's prior urine culture. Patient was additionally provided with 2 L normal saline 30+cc/kg per ideal body weight. Case was discussed with Dr. Zarate, [facility] hospitalist who will evaluate the patient for admission. Triage Nursing notes reviewed and agree them. Prior/external medical records reviewed Vital Signs: reviewed Differential diagnosis: Viral syndrome, otitis, pharyngitis, pneumonia, influenza, meningitis, urinary tract infection, sepsis, bacteremia, as well as other pathologies. ER treatment provided: See below. Diagnostics interpreted by me: ECG: Normal sinus rhythm, 92 bpm, no ectopy, no overt ST elevation or depression, QTc 477, QRS 82. Cardiac Monitoring: An order for continuous cardiac monitoring was placed and demonstrated Normal sinus rhythm, 92 bpm, no ectopy. Laboratory studies: See below Imaging studies: See below Consultation(s): Case was discussed with Dr. Zarate, [facility] hospitalist who will evaluate the patient for admission. HPI: The patient is a pleasant 57-year-old woman with a past medical history of COPD, rheumatoid arthritis, type 2 diabetes, MASHA, stills disease, recent admission to [facility] following a fall down a flight of stairs where she had a left tibial plateau fracture, numerous pelvic fractures and subdural hematoma where she was subsequently discharged to acute rehab where she was discharged from and back to home approximately 10 days ago who presents to the emergency department via EMS from home for evaluation of fever with concern for UTI. The patient reports that her daughter who cares for her at home noticed her briefs were foul-smelling and suspected UTI. [facility] did perform a urinalysis that was consistent with infection and was started on an antibiotic. Review of the urine cultures demonstrates Klebsiella pneumonia which was intermediate to Macrobid. ROS: See above HPI for pertinent positives & negatives. A total of 10 systems reviewed and were otherwise negative. VITALS:See Below PHYSICAL EXAMINATION: GENERAL: Awake, alert, fatigued-appearing, in no distress HENT: Normocephalic, atraumatic. Oropharynx with dry mucous membranes and otherwise unremarkable. EYES: Normal conjunctiva. Sclera non-icteric. NECK: Supple. No nuchal rigidity. FROM. No JVD. RESPIRATORY: Clear to auscultation. CARDIAC: Regular rate, normal rhythm. Extremities warm and well perfused. Pulses equal. ABDOMEN: Soft, non-distended. No tenderness to palpation. No rebound or guarding. No masses. MUSCULOSKELETAL: Chest examination reveals no tenderness. The back is symmetrical on inspection without obvious abnormality. There is no CVA tenderness to palpation. No joint edema. LOWER EXTREMITIES: Calves are equal size bilaterally and non-tender. No edema. Left lower leg surgical scar clean dry and intact. NEURO: Normal sensorium. No sensory or motor deficits noted. SKIN: No rash or jaundice noted. David Gregg MD Past Med/Surg History Medical History (Updated 05/30/23 @ 00:59 by David Gregg MD) Smoking Hypertensive heart disease Hypertension COPD (chronic obstructive pulmonary disease) Hypertension Sleep apnea Type 2 diabetes mellitus Still's disease History of ITP Rheumatoid arthritis Surgical History Status post section Family History Aunt Breast cancer Grandmother Breast cancer Father Heart disease Social History Smoking Status: Former smoker Tobacco Type: Cigarettes Second Hand Exposure: No; Do You Dip or Chew Tobacco: No (Quit last month 04/2023); Tobacco Cessation Education Requested by Patient: No Hx Alcohol Use: No Hx Substance Use: No Preferred Language: Lithuanian Communication Ability: Effective Hand Screen Printer Required: No Beliefs That Will Affect Care: None Current Living Situation: Spouse and Family Other Information That Helps Us Care for You: No Feels Safe at Home: Yes Safety Concerns: Feels Safe At This Time Assistive Devices: CPAP and Wheelchair Allergies Allergies Allergy/AdvReac Type Severity Reaction Status Date / Time No Known Allergies Allergy Verified 05/29/23 15:59 Home Meds Home Medications Medication Instructions Recorded Confirmed gabapentin 600 mg tablet See Rx Instructions .Route .COMPLEX 05/30/18 05/29/23 metoprolol succinate 100 mg 100 mg PO HS 05/30/18 05/29/23 tablet,extended release 24 hr sitagliptin phos 50 mg-metformin 1 tab PO QAM 05/30/18 05/29/23 ER 1,000 mg tablet,extend rel 24h mp (Janumet XR) zolpidem 10 mg tablet 10 mg PO HS 05/30/18 05/29/23 amlodipine 2.5 mg tablet 2.5 mg PO DAILY 01/08/22 05/29/23 duloxetine 60 mg capsule,delayed 60 mg PO QAM 01/08/22 05/29/23 release lisinopril 10 mg tablet 10 mg PO DAILY 01/08/22 05/29/23 meloxicam 15 mg tablet 15 mg PO DAILY 01/08/22 05/29/23 rosuvastatin 10 mg tablet 10 mg PO DAILY 01/08/22 05/29/23 sarilumab 200 mg/1.14 mL 200 mg subcut UD 01/08/22 05/29/23 subcutaneous syringe (Kevzara) aspirin 81 mg tablet,delayed 81 mg PO DAILY 11/23/22 05/29/23 release cholecalciferol (vitamin D3) 50 50 mcg PO DAILY 11/23/22 05/29/23 mcg (2,000 unit) tablet (Vitamin D3) melatonin 10 mg tablet,extended 10 mg PO HS 11/23/22 05/29/23 release acetaminophen 500 mg tablet 1,000 mg PO Q6H PRN Pain 05/29/23 05/29/23 (Tylenol Extra Strength) albuterol sulfate 2.5 mg/3 mL 2.5 mg inhalation DIRECTED PRN 05/29/23 05/29/23 (0.083 %) solution for nebulization Shortness Of Breath Or Wheezing clobetasol 0.05 % topical cream 1 applic topical DIRECTED PRN 05/29/23 05/29/23 .[employer] fluticasone fur. 100 mcg-umeclid 1 inh inhalation BID 05/29/23 05/29/23 62.5 mcg-vilant 25 mcg inhalat.powder (Trelegy Ellipta) multivitamin 1 tab PO DAILY 05/29/23 05/29/23 nicotine 21 mg/24 hr daily 1 patch topical DAILY 05/29/23 05/29/23 transdermal patch oxycodone 5 mg tablet 5 mg PO Q6 PRN Pain 05/29/23 05/29/23 sulfamethoxazole 800 1 tab PO BID 05/29/23 05/29/23 mg-trimethoprim 160 mg tablet tramadol 50 mg tablet 50 mg PO DAILY PRN Pain 05/29/23 05/29/23 Previous Rx's Medication Instructions Recorded ipratropium 0.5 mg-albuterol 3 mg 3 ml NEB Q4R PRN shortness of 11/24/22 (2.5 mg base)/3 mL nebulization breath or wheezing #90 mL soln Results & Data (ED) Vital Signs Vital Signs - 24 hr 05/29/23 12:35 05/29/23 12:43 05/29/23 13:10 Temperature 37.6 C H Temperature Source Oral Pulse Rate 99 H 93 H Pulse Rate [Apical] Respiratory Rate 20 Respiratory Effort / Characteristics Non-Labored Respiratory Depth Normal Blood Pressure 124/74 Blood Pressure [Right Arm] Blood Pressure Mean 90 Blood Pressure Mean [Right Arm] Pulse Oximetry 94 96 Oxygen Delivery Method Room Air Room Air Sepsis Recent Fever Within 48 Hours No Sepsis New/Unexplained Change in Mental Status No Sepsis Action Taken by Nursing No Action Required 05/29/23 13:10 05/29/23 15:31 05/29/23 16:30 Temperature Temperature Source Pulse Rate Pulse Rate [Apical] 91 H 78 78 Respiratory Rate 20 20 20 Respiratory Effort / Characteristics Non-Labored Non-Labored Non-Labored Respiratory Depth Normal Normal Normal Blood Pressure Blood Pressure [Right Arm] 124/74 107/61 Blood Pressure Mean Blood Pressure Mean [Right Arm] 90 76 Pulse Oximetry 96 98 98 Oxygen Delivery Method Room Air Room Air Room Air Sepsis Recent Fever Within 48 Hours Sepsis New/Unexplained Change in Mental Status Sepsis Action Taken by Nursing 05/29/23 16:46 Temperature Temperature Source Pulse Rate 80 Pulse Rate [Apical] Respiratory Rate Respiratory Effort / Characteristics Respiratory Depth Blood Pressure Blood Pressure [Right Arm] Blood Pressure Mean Blood Pressure Mean [Right Arm] Pulse Oximetry Oxygen Delivery Method Sepsis Recent Fever Within 48 Hours Sepsis New/Unexplained Change in Mental Status Sepsis Action Taken by Nursing Laboratory Data Attestation: I reviewed the patient's lab results. 05/29/23 12:40 05/29/23 12:40 Lab Results 05/29/23 05/29/23 05/29/23 Range/Units 12:40 12:42 12:57 WBC 6.28 (4.8-10.8) K/ul RBC 4.59 (4.20-5.40) M/uL Hgb 13.0 (12.0-16.0) g/dl Hct 39.6 (37.0-47.0) % MCV 86.3 (80.0-100.0) fL MCH 28.3 (25.0-34.0) pg MCHC 32.8 (32.0-36.0) g/dL RDW Std Deviation 45.5 (36.4-46.3) fL RDW Coeff of Chidi 14.5 (11.5-14.5) % Plt Count 182 (130-400) K/uL MPV 10.4 (9.4-12.4) fL Immature Gran % (Auto) 0.2 % Neut % (Auto) 77.6 % Lymph % (Auto) 11.6 % [place] % (Auto) 6.4 % Eos % (Auto) 4.0 % Baso % (Auto) 0.2 % Neut # (Auto) 4.88 (1.40-6.50) K/uL Lymph # (Auto) 0.73 L (1.20-3.40) K/uL [place] # (Auto) 0.40 (0.11-0.59) K/uL Eos # (Auto) 0.25 (0.00-0.50) K/uL Baso # (Auto) 0.01 (0.00-0.20) K/uL Immature Gran # (Auto) 0.01 (0.01-0.20) K/uL Sodium 136 (136-145) mmol/L Potassium 3.8 (3.5-5.1) mmol/L Chloride 103 (98-107) mmol/L Carbon Dioxide 23 (21-32) mmol/L Anion Gap 10 (3-11) BUN 10 (6-23) mg/dl Creatinine 0.98 (0.6-1.2) mg/dl Est Cr Clr Drug Dosing 61.2 ml/min Est GFR ( Amer) 74.7 ml/min Est GFR (Non-Af Amer) 64.5 ml/min BUN/Creatinine Ratio 10.2 (10-20) Glucose 275 H (70-99(Fasting)) mg/dl Lactate 2.5 H* (0.4-2.0) mmol/L Calcium 8.9 (8.6-10.3) mg/dl Magnesium 1.6 L (1.7-2.4) mg/dl Total Bilirubin 0.4 (0.2-1.0) mg/dl Direct Bilirubin 0.1 (0-0.2) mg/dl AST 14 (13-39) U/L ALT 10 (7-52) U/L Alkaline Phosphatase 113 H (34-104) U/L Troponin I High Sens 8.4 (0-14) pg/ml Total Protein 7.1 (6.0-8.3) gm/dl Albumin 4.0 (3.4-5.0) gm/dl Lipase 15 (11-82) U/L Procalcitonin 0.27 (0-0.5) ng/ml Urine Color Yellow Urine Appearance Clear (Clear) Urine pH 6.5 (4.5-7.5) Ur Specific [place] 1.013 (1.000-1.030) Urine Protein Negative (Negative) Urine Glucose (UA) Negative (Negative) Urine Ketones Negative (Negative) Urine Blood Negative (Negative) Urine Nitrite Negative (Negative) Urine Bilirubin Negative (Negative) Urine Urobilinogen Negative (Negative) Ur Leukocyte Esterase Negative (Negative) Adenovirus (PCR) (NotDetected) B. pertussis DNA (PCR) (NotDetected) B.parapertussis DNA PCR (NotDetected) C. pneumoniae DNA (PCR) (NotDetected) Coronavirus OC43 (PCR) (NotDetected) Coronavirus HKU1 (PCR) (NotDetected) Coronavirus 229E (PCR) (NotDetected) SARS-CoV-2 (PCR) (NotDetected) Coronavirus NL63 (PCR) (NotDetected) Human Metapneumovir PCR (NotDetected) Influenza Type A (PCR) (NotDetected) Influenza Type B (PCR) (NotDetected) M. pneumoniae (PCR) (NotDetected) Parainfluenza 1 (PCR) (NotDetected) Parainfluenza 2 (PCR) (NotDetected) Parainfluenza 3 (PCR) (NotDetected) Parainfluenza 4 (PCR) (NotDetected) RSV (PCR) (NotDetected) Entero/Rhino (PCR) (NotDetected) 05/29/23 05/29/23 Range/Units 13:22 15:47 WBC (4.8-10.8) K/ul RBC (4.20-5.40) M/uL Hgb (12.0-16.0) g/dl Hct (37.0-47.0) % MCV (80.0-100.0) fL MCH (25.0-34.0) pg MCHC (32.0-36.0) g/dL RDW Std Deviation (36.4-46.3) fL RDW Coeff of Chidi (11.5-14.5) % Plt Count (130-400) K/uL MPV (9.4-12.4) fL Immature Gran % (Auto) % Neut % (Auto) % Lymph % (Auto) % [place] % (Auto) % Eos % (Auto) % Baso % (Auto) % Neut # (Auto) (1.40-6.50) K/uL Lymph # (Auto) (1.20-3.40) K/uL [place] # (Auto) (0.11-0.59) K/uL Eos # (Auto) (0.00-0.50) K/uL Baso # (Auto) (0.00-0.20) K/uL Immature Gran # (Auto) (0.01-0.20) K/uL Sodium (136-145) mmol/L Potassium (3.5-5.1) mmol/L Chloride (98-107) mmol/L Carbon Dioxide (21-32) mmol/L Anion Gap (3-11) BUN (6-23) mg/dl Creatinine (0.6-1.2) mg/dl Est Cr Clr Drug Dosing ml/min Est GFR ( Amer) ml/min Est GFR (Non-Af Amer) ml/min BUN/Creatinine Ratio (10-20) Glucose (70-99(Fasting)) mg/dl Lactate 1.2 (0.4-2.0) mmol/L Calcium (8.6-10.3) mg/dl Magnesium (1.7-2.4) mg/dl Total Bilirubin (0.2-1.0) mg/dl Direct Bilirubin (0-0.2) mg/dl AST (13-39) U/L ALT (7-52) U/L Alkaline Phosphatase (34-104) U/L Troponin I High Sens (0-14) pg/ml Total Protein (6.0-8.3) gm/dl Albumin (3.4-5.0) gm/dl Lipase (11-82) U/L Procalcitonin (0-0.5) ng/ml Urine Color Urine Appearance (Clear) Urine pH (4.5-7.5) Ur Specific [place] (1.000-1.030) Urine Protein (Negative) Urine Glucose (UA) (Negative) Urine Ketones (Negative) Urine Blood (Negative) Urine Nitrite (Negative) Urine Bilirubin (Negative) Urine Urobilinogen (Negative) Ur Leukocyte Esterase (Negative) Adenovirus (PCR) Not Detected (NotDetected) B. pertussis DNA (PCR) Not Detected (NotDetected) B.parapertussis DNA PCR Not Detected (NotDetected) C. pneumoniae DNA (PCR) Not Detected (NotDetected) Coronavirus OC43 (PCR) Not Detected (NotDetected) Coronavirus HKU1 (PCR) Not Detected (NotDetected) Coronavirus 229E (PCR) Not Detected (NotDetected) SARS-CoV-2 (PCR) Not Detected (NotDetected) Coronavirus NL63 (PCR) Not Detected (NotDetected) Human Metapneumovir PCR Not Detected (NotDetected) Influenza Type A (PCR) Not Detected (NotDetected) Influenza Type B (PCR) Not Detected (NotDetected) M. pneumoniae (PCR) Not Detected (NotDetected) Parainfluenza 1 (PCR) Not Detected (NotDetected) Parainfluenza 2 (PCR) Not Detected (NotDetected) Parainfluenza 3 (PCR) Not Detected (NotDetected) Parainfluenza 4 (PCR) Not Detected (NotDetected) RSV (PCR) Not Detected (NotDetected) Entero/Rhino (PCR) Not Detected (NotDetected) Administered Medications Acetaminophen (Acetaminophen 500 Mg Tab) 1,000 mg PO Q6H PRN PRN Reason: Pain Stop: 06/28/23 19:31 Last Admin: 05/29/23 23:26 Dose: 1,000 mg Documented By: SELVIN Gabapentin (Gabapentin 300 Mg Cap) 300 mg PO BID@1200,2100 [facility] Stop: 06/28/23 20:59 Last Admin: 05/29/23 21:19 Dose: 300 mg Documented By: SELVIN Gabapentin (Gabapentin 600 Mg Tab) 600 mg PO TID@0800,1200,2100 [facility] Stop: 06/28/23 20:59 Last Admin: 05/29/23 21:20 Dose: 600 mg Documented By: SELVIN Insulin Aspart (Insulin Aspart Per Unit Charge) 0 units SC ACHS JANNET Stop: 06/28/23 20:59 Last Admin: 05/29/23 21:36 Dose: Not Given Documented By: SELVIN Melatonin (Melatonin 3 Mg Tab) 9 mg PO HS JANNET Stop: 06/28/23 20:59 Last Admin: 05/29/23 21:19 Dose: 9 mg Documented By: SELVIN Metoprolol Succinate (Metoprolol Succ 50mg Ext Rel Tab) 100 mg PO HS JANNET Stop: 06/28/23 20:59 Last Admin: 05/29/23 21:20 Dose: 100 mg Documented By: SELVIN Oxycodone HCl (Oxycodone Hcl Ir 5 Mg Tab (Immediate Release)) 5 mg PO Q6 PRN PRN Reason: Pain Stop: 06/12/23 19:31 Last Admin: 05/29/23 19:58 Dose: 5 mg Documented By: SELVIN Zolpidem Tartrate (Zolpidem Tartrate 5 Mg Tab) 5 mg PO HS PRN PRN Reason: Sleep Stop: 06/28/23 20:09 Last Admin: 05/29/23 23:26 Dose: 5 mg Documented By: SELVIN Discontinued Medications Sodium Chloride (Nss) 1,000 mls @ 999 mls/hr IV .Q1H1M JANNET Stop: 05/29/23 15:15 Last Infusion: 05/29/23 16:29 Dose: Infused Documented By: Admin: 05/29/23 15:17 Dose: 1,000 mls/hr Documented By: Infusion: 05/29/23 14:19 Dose: Infused Documented By: Admin: 05/29/23 13:20 Dose: 999 mls/hr Documented By: ARPITA Acetaminophen (Ofirmev) 1,000 mg in 100 mls @ 400 mls/hr IV NOW STA Stop: 05/29/23 13:22 Last Infusion: 05/29/23 13:42 Dose: Infused Documented By: Admin: 05/29/23 13:18 Dose: 400 mls/hr Documented By: ARPITA Ioversol (Optiray 320 100ml) 91 ml IV ONCE ONE Stop: 05/29/23 14:44 Last Admin: 05/29/23 14:44 Dose: 91 ml Documented By: LETICIA Nicotine (Nicotine 21 Mg/24 Hr Tdsy) 21 mg TD ONE ONE Stop: 05/29/23 20:31 Last Admin: 05/29/23 21:19 Dose: 21 mg Documented By: [facility] Imaging Data Radiologist's Impression: Abdomen/Pelvis CT 05/29/23 13:[address] WITH IV CONTRAST CT DOSE: 1000.52 mGy.cm HISTORY: sepsis, UTI, recent trauma/pel fx TECHNIQUE: Multiaxial CT images of the abdomen and pelvis were performed following the use of intravenous contrast. A dose lowering technique was utilized adhering to the principles of ALARA. COMPARISON STUDY: Abdomen and pelvis CT 05/21/2021. FINDINGS: Mild dependent changes seen at the lung bases. Mild interlobular septal thickening suggestive of mild congestive change. The heart is mildly enlarged. No pneumoperitoneum. No pneumatosis. There are healing left pubic ring fractures and a healing right superior pubic ramus fracture. Patchy sclerosis within the right sacral wing consistent with a healing fracture. There is a healing nondisplaced left L3 transverse process fracture. There is an old, healed right posterior ninth rib fracture. Right gluteal subcutaneous fat stranding/contusion. No evidence for a pelvic hematoma. The liver, gallbladder, pancreas, and adrenal glands unremarkable. The main portal vein is patent. There are few punctate calcified granulomas within the spleen. The kidneys enhance normally. No hydronephrosis. No retroperitoneal hematoma or lymphadenopathy. Moderate calcified plaque within the normal caliber abdominal aorta. No pelvic free fluid. Mild bladder wall thickening. The uterus and adnexa are unremarkable. No bowel wall thickening or obstruction. Colonic diverticulosis. No evidence for acute diverticulitis. Normal appendix. IMPRESSION: 1. Healing bilateral pubic bone and right sacral fractures as described above. 2. No acute fractures identified. 3. Cardiomegaly with mild congestive change. 4. Mild bladder wall thickening. This may represent a cystitis. 5. No bowel wall thickening or obstruction. ACT 112: Negative or not required by law. Electronically signed by: Ryley Hankins M.D. 05/29/2023 3:14 PM Chest X-Ray 05/29/23 13:05 XR chest 1V portable HISTORY: Sepsis COMPARISON: Chest 11/23/2022. FINDINGS: No pneumothorax. No pleural effusions. No focal lung consolidations to suggest a pneumonia. No evidence for pulmonary edema. The heart remains enlarged. There are calcifications within the aortic knob. No acute fractures. IMPRESSION: Stable cardiomegaly. Otherwise, no acute process within the chest. ACT 112: Negative or not required by law. Electronically signed by: Ryley Hankins M.D. 05/29/2023 1:40 PM Venous Doppler Study 05/29/23 17:03 ULTRASOUND BILATERAL LOWER EXTREMITY VENOUS CLINICAL HISTORY: Leg pain. COMPARISON STUDY: No priors. TECHNIQUE: Real-time, grayscale, and color Doppler sonography of the deep veins of the right and left lower extremity was performed from the inguinal crease to the calf. Compression and augmentation were utilized. FINDINGS: There is no sonographic evidence of deep venous thrombosis identified in the right or left lower extremity. The common femoral, superficial femoral, and popliteal veins are patent and normally compressible bilaterally. The greater saphenous vein and the profunda femoris vein at the junction with the common femoral vein are clear in both legs. The visualized calf veins are patent bilaterally. IMPRESSION: There is no sonographic evidence of deep venous thrombosis identified in the right or left lower extremity. ACT 112: Negative or not required by law. Electronically signed by: Alban Hathaway M.D. 05/29/2023 7:29 PM Discharge Plan Visit Data Chief Complaint: Illness Stated Complaint: FEVER ED Provider: David Gregg Discharge Problem: SIRS (systemic inflammatory response syndrome), UTI (urinary tract infection), Fever Patient Disposition: Admitted As Inpatient Discharge Instructions Interventions: ED Discharge Assessment Last Done: 05/29/23 20:13 Discharge Problem: UTI (urinary tract infection) Qualifiers: Urinary tract infection type: acute cystitis Hematuria presence: without hematuria Qualified Code(s): N30.00 - Acute cystitis without hematuria Fever Qualifiers: Fever type: unspecified Qualified Code(s): R50.9 - Fever, unspecified
--- OUTSIDE RECORDS SUMMARY | 2023-05-29 12:41 | External Medical Summary | Summary of Care ---
Author Name Unknown Organization [facility] Address [address] [place] [address] Phone [phone] Care Team Providers Care Manager Ambulatory Name Role Phone Raven Agrawal MD Primary Care Provider [phone] Reason for Visit * Reason Comments Retrieval Scene call [place] [facility] unty to [facility] fall victim with head injury Encounter Details Date Type Department Care Team (Late st Contact Info) Description 04/24/2023 3:10 AM EST Documentation [facility], [place] [address] [place] [address] 2, [facility] [address] [place] [address] Injury of head, initial encounter* Allergies No known active allergiesdocumented as of this encounter (statuses as of 04/24/2023) Medications Medication Sig Dispensed Refills Start Date [...] mouth at bedtime. Murphy 7 Tab 0 07/04/2019 Active Melatonin ER [...] depressive disorder with single episode, in remission ([facility]),Type 2 diabetes mellitus with diabetic neuropathy, without long-term current use of insulin ([facility]),Cervical spinal stenosis,Cervical spondylosis TAKE 1 [...] neuropathy, without long-term current use of insulin ([facility]),Mixed dyslipidemia TAKE 1 TABLET BY MOUTH EVERY DAY 90 Tablet 2 12/23/2022 Active Janumet XR 50-1000 MG Oral Tablet Extended Release 24 Hour (SITagliptin-metFORM IN HCl ER)Indications:Type 2 diabetes mellitus with hemoglobin A1c goal of less than 7.0% ([facility]),Type 2 diabetes mellitus with diabetic neuropathy, unspecified ([facility]) TAKE 1 TABLET BY MOUTH TWICE A DAY 180 Tablet 3 02/04/2023 Active Lisinopril 10 MG Oral Tablet (Prinivil)Indication s:Type 2 diabetes mellitus with hemoglobin A1c goal of less than 7.0% ([facility]),LVH (left ventricular hypertrophy) due to hypertensive disease, without heart failure,HTN, goal below 130/80 TAKE 1 TABLET BY MOUTH EVERY DAY 90 Tablet 1 03/10/2023 Active Varenicline Tartrate 1 MG Oral TabletIndications:Gr anulomatous lung disease ([facility]),COPD, group B, by GOLD 2017 classification ([facility]),Tobacco use disorder 0.5 mg Daily x 3 days, then twice daily x 4 days, then 1 mg twice daily -- restart week prior to quit date which she is to decide on 60 Tablet 3 04/14/2023 Active Gabapentin 600 MG Oral Tablet (Neurontin)Indicatio ns:Type 2 diabetes mellitus with diabetic neuropathy, without long-term current use of insulin ([facility]) TAKE 1 TABLET IN MORNING, [...] MG/3ML) 0.083% inhalation solution 2.5 mgIndications:COPD, moderate ([facility]) 2.5 mg NEBULIZER PRN 12/29/2022 12/29/2023 Active documented as of this encounter (statuses as of 04/24/2023) Active Problems Problem Noted Date Diagnosed Date Type 2 diabetes mellitus wit h diabetic neuropathy, without long-term current use of insulin 10/06/2022 Mixed dyslipidemia 10/06/2022 COPD, group B, by GOLD 2017 classification 06/08 Overview: Per COPD GOLD Classification Granulomatous lung disease 06/27/2021 Dense breast tissue on mammogram 01/06/2019 Overview: 01/17; Tobacco use disorder 06/09/2018 Elevated hemoglobin 04/04/2018 Overview: 04/1919-FwEmpk-jns EPO, ferritin,Tsat, neg JAK2 mutn LVH (left ventricular hypert rophy) due to hypertensive disease, without heart failure 12/27/2017 Overview: 06/1737-qdkl-qs24%, no WMabn,mild A Scl,gr 2 DD HTN, [...] as of this encounter (statuses as of 04/24/2023) Resolved Problems Problem Noted Date Diagnosed Date [...] 06/22/2017 07/21/2017 Undiagnosed cardiac murmurs 03/11/2011 06/22/2017 #[id number]\CORRONA\QAMARMAN 04/12/2003 Overview: Renamed Per Clinical Trials Billing Project. Pt is a participant in the [facility] (Consortium of Rheumat[employer] Researchers of [place]) national data collection study. For further information please call Dr Alban Del Real or Tata Meeks, RN, CCRC at [phone] [facility] RESEARCH OTHER*[id number] 04/12/2003 08/26/2009 Overview: Renamed Per Clinical Trials Billing Project. Pt is a participant in the [facility] (Consortium of [employer] [place]) national data collection study. For further information please call Dr Alban Del Real or Tata Meeks, RN, CCRC at [phone] ABN CERVIX NEC-ANTEPART 11/24/200205/31 Elderly multigravida with an tepartum condition or complication 10/10/2002 06/22/2017 Arthritis, rheumatoid 2017 DIABETES-ANTEPARTUM 06/23/19 18 documented as of this encounter (statuses as of 04/24/2023) Immunizations Name Administration Dates Next Due COVID-19 [...] (Menactra) 03/13/2018 Pneumococcal Conjugate Vacci ne, 20-valent ([id number]) 04/06/2022 SARS-COV-2 (COVID-19) Vaccine Unspecified 2021 Seasonal [...] on file documented as of this encounter Progress Notes * Gordo Landers, RN - 04/24/2023 5:05 AM EST MEDICARE AMBULANCE INFORMATION SHEET Patient Admitted as an Inpatient: yes Certifying Physician/Ordering Service:[facility] Phys[place] - Kishore Dawson D.O. [facility] [address] [place] [address] Point of Housing Assistant Property Manager (zip code required): [place] [address] Destination (Specify Name/Address): [facility] - [address] [address] Patient transported to nearest facility (capable of mgmt for Pt's condition): YES Total number of Loaded Miles: 32.0 miles Mode of Transport: Air Completed by: Gordo Landers, RN documented in this encounter Plan of Treatment Upcoming Encounters Date Type Department Care Team (Late st Contact Info) Description 05/05/2023 1:40 PM EST Office Visit Pulmonary Medicine, [facility] [address] [facility] [place] [address] Lonny Gtz MD [address] [address] 05/24/2023 11:00 AM EDT Cardiac Studies Cardiac Studies, [facility] 132 [facility] [place] [address] 05/24/2023 3:00 PM EDT Office Visit Hematology/Oncology [facility] [address] [facility] [place] [phone] Fatimah Quintero CRNP [address] [place] [address] [place] [address] 08/10/2023 1:00 PM EDT Office Visit Sleep Disorders Ctr [facility] [address] [facility] [place] [phone] Patricia Guevara DO [address] [facility] [place] [address] 10/13/2023 5:00 PM EDT Office Visit General Internal Medicine [facility] [place] [address] Raven Agrawal MD [address] [facility] [place] [address] 12/24/2023 1:00 PM EDT Imaging Radiology [facility] [address] [facility] [place] [address] Scheduled Procedures Name Priority Associated Diagnoses Date/Ti [...] 04/03/2022, Additional history exists Mammogram 12/18/2023 12/17/2022, 10/0 06/2021, 10/09/2020, Additional history exists O2 ASSESSMENT [...] 09/20/2020 LUNG CANCER SCREENING - USE SMARTSET 42592 Completed 03/23/2022, 09/16/2021, 09/16/2020, Additional history exists Pneumococcal Vaccine: Pediatrics (0 to 5 Years) and At-Risk Patients (6 to 64 Years) Completed 04/06/2022, 03/16/2005 GARDASIL-HPV IMMUNIZATION SERIES Aged Out No longer eligible based on patient's age to complete this topic documented as of this encounter Medical Devices Not on filedocumented as of this encounter Visit Diagnoses Diagnosis Injury of head, initial encounter- Primary documented in this encounter Care Teams Manager Ambulatory Relationship Specialty Start Date End Date Raven Agrawal MD [address] [facility] [place] [address] PCP - General Internal Medicine 12/27/17 documented as of this encounter
--- OUTSIDE RECORDS SUMMARY | 2023-05-29 12:41 | External Medical Summary | Summary of Care ---
Author Name Unknown Organization [facility] Address [address] [place] [address] Phone [phone] Care Team Providers Care Maintenance Chief Name Role Phone Raven Agrawal MD Primary Care Provider [phone] Reason for Visit * Reason Comments eRx-Medication Refill Encounter Details Date Type Department Care Team (Late st Contact Info) Description 03/10/2023 Refill General Internal Medicine [facility] [place] [address] [facility] [place] [address] Raven Agrawal MD [address] [facility] [place] [address] Type 2 diabetes mellitus with hemoglobin A1c goal of less than 7.0% ([facility]); LVH (left ventricular hypertrophy) due to hypertensive disease, without heart failure; HTN, goal below 130/80 Allergies No known active allergiesdocumented as of this encounter (statuses as of 03/10/2023) Medications Medication Sig Dispensed Refills Start Date [...] 05/05/202 0 Active zolpidem (AMBIEN) 10 MG TabletIndications: Persistent insomnia Take 1 Tablet by mouth at bedtime. DrMurphy 7 Tab 0 0 Active Melatonin ER 1 MG TBCRIndications:Pe rsistent insomnia at bedtime 0 0 Active Ipratropium-Albute rol 0.5-2.5 (3) MG/3ML Inhalation [...] EVERY DAY 90 Tablet 4 3 Active Gabapentin 600 MG Oral Tablet (Neurontin)Indicat ions:Type 2 diabetes mellitus with diabetic neuropathy, without long-term current use of insulin ([facility]) TAKE 1 TABLET IN MORNING, 1.5 TABLET AT NOON AND 1.5 TABLET BEFORE BEDTIME 360 Tablet 1 3 Active DULoxetine HCl 60 MG Oral Capsule Delayed Release Particles (Cymbalta)Indicati ons:Major depressive disorder with single episode, in remission ([facility]),Type 2 diabetes mellitus with diabetic neuropathy, without long-term current use of insulin ([facility]),Cervical spinal stenosis,Cervical spondylosis TAKE 1 CAPSULE BY MOUTH IN THE MORNING 90 Capsule 1 3 Active Fluticasone-Umecli din-Vilant 100-62.5-25 MCG/ACT Aerosol Powder Breath Activated (Trelegy Ellipta)Indication s:Hospital discharge follow-up,COPD exacerbation (HCC),Rhinovirus infection,COPD, moderate (HCC) Inhale 1 Puff by mouth in the morning. Start 11/27/2022 and stop symbicort (cancel Rx anoro ellipta). 60 Blister Dosing Unit 5 3 Active Varenicline Tartrate 1 MG Oral TabletIndications: Tobacco use disorder,COPD, moderate (HCC) Take 1 Tablet by mouth in the morning and 1 Tablet before bedtime. As directed on box-use from 11/07/2022. 60 Tablet 4 3 Active Additional Information Patient not taking.Reported on 12/29/2022 Rosuvastatin Calcium 10 MG Oral Tablet (Crestor)Indicatio ns:Type 2 diabetes mellitus with diabetic neuropathy, without long-term current use of insulin (HCC),Mixed dyslipidemia TAKE 1 TABLET BY MOUTH EVERY DAY 90 Tablet 2 3 Active Janumet XR 50-1000 MG Oral Tablet Extended Release 24 Hour (SITagliptin-metFO RMIN HCl ER)Indications:Typ e 2 diabetes mellitus with hemoglobin A1c goal of less than 7.0% ([facility]),Type 2 diabetes mellitus with diabetic neuropathy, unspecified ([facility]) TAKE 1 TABLET BY MOUTH TWICE A DAY 180 Tablet 3 3 Active Nirmatrelvir&Riton avir 300/100 20 x 150 MG & 10 x 100MG Oral Tablet Therapy Pack (Paxlovid)Indicati ons:COVID-19 virus infection,COPD, group B, by GOLD 2017 classification ([facility]) Take 2 pink tablets of Nirmatrelvir and 1 white tablet of Ritonavir two times a day by mouth. 30 Tablet 0 3 Active Lisinopril 10 MG Oral Tablet (Prinivil)Indicati ons:Type 2 diabetes mellitus with hemoglobin A1c goal of less than 7.0% ([facility]),LVH (left ventricular hypertrophy) due to hypertensive disease, without heart failure,HTN, goal below 130/80 TAKE 1 TABLET BY MOUTH EVERY DAY 90 Tablet 1 4 Active Lisinopril 10 MG Oral Tablet (Prinivil)Indicati ons:Type 2 diabetes mellitus with hemoglobin A1c goal of less than 7.0% (HCC),LVH (left ventricular hypertrophy) due to hypertensive disease, without heart failure,HTN, goal below 130/80 TAKE 1 TABLET BY MOUTH ONCE DAILY 90 Tablet 1 3 03/10/19 24 Discontinued Hospital, Clinic, or Other Facility Administered Medication Ordered Dose Route Frequency Start Date End Date Status Albuterol Sulfate (Proventil) (2.5 MG/3ML) 0.083% inhalation solution 2.5 mgIndications:COPD, moderate (HCC) 2.5 mg NEBULIZER PRN 12/29/2022 12/29/2023 Active documented as of this encounter (statuses as of 03/10/2023) Active Problems Problem Noted Date Diagnosed Date Type 2 diabetes mellitus wit h diabetic neuropathy, without long-term current use of insulin 10/06/2022 Mixed dyslipidemia 10/06/2022 COPD, group B, by GOLD 2017 classification 06/08 Overview: Per COPD GOLD Classification Granulomatous lung disease 06/27/2021 Dense breast tissue on mammogram 01/06/2019 Overview: 01/17; Tobacco use disorder 06/09/2018 Elevated hemoglobin 04/04/2018 Overview: 04/1979-TuEpsi-aao EPO, ferritin,Tsat, neg JAK2 mutn LVH (left ventricular hypert rophy) due to hypertensive disease, without heart failure 12/27/2017 Overview: 06/1702-osoa-as42%, no WMabn,mild A Scl,gr 2 DD HTN, [...] as of this encounter (statuses as of 03/10/2023) Resolved Problems Problem Noted Date Diagnosed Date [...] Project. Pt is a participant in the [facility] (Consortium of Rheumatology Researchers [place]) national data collection study. For further information please call Dr Alban Del Real or Tata Meeks, RN, CCRC at [phone] [facility] RESEARCH OTHER*[id number] 04/12/2003 08/26/2009 Overview: Renamed Per Clinical Trials Billing Project. Pt is a participant in the [facility] (Consortium of Rheumatology Researchers [employer] [place]) national data collection study. For further information please call Dr Alban Del Real or Tata Meeks, RN, CCRC at [phone] ABN CERVIX NEC-ANTEPART 11/24/200205/31 Elderly multigravida with an tepartum condition or complication 10/10/2002 06/22/2017 Arthritis, rheumatoid 2017 DIABETES-ANTEPARTUM 06/23/19 18 documented as of this encounter (statuses as of 03/10/2023) Immunizations Name Administration Dates Next Due COVID-19 [...] (Menactra) 03/13/2018 Pneumococcal Conjugate Vacci ne, 20-valent ([id number]) 04/06/2022 SARS-COV-2 (COVID-19) Vaccine Unspecified 2021 Seasonal [...] encounter Miscellaneous Notes * Telephone Encounter - Jerson Sesay [facility] - 03/10/2023 11:32 PM EST Signed Prescriptions: Disp Refills Lisinopril 10 MG Oral Tablet (Prinivil) 90 Tab*1 Sig: TAKE 1 TABLET BY MOUTH EVERY DAYAuthorizing Provider: Francis AGRAWAL User: JERSON SESAY--------- documented in this encounter Plan of Treatment Upcoming Encounters Date Type Department Care Team (Late st Contact Info) Description 04/14/2023 5:20 PM EST Office Visit General Internal Medicine [facility] [address] [facility] [place] [address] Raven Agrawal MD 200 [facility] [place] [address] 04/21/2023 4:00 PM EST Office Visit Cardiology, [facility] 132 [facility] [place] [address] Jonathon Smith MD [address] [facility] [place] [address] 05/05/2023 1:40 PM EST Office Visit Pulmonary Medicine, [facility] [address] [facility] [place] [address] Lonny Gtz MD [address] [place] [address] 05/24/2023 11:00 AM EDT Cardiac Studies Cardiac Studies, [facility] [address] [place] [address] 05/24/2023 3:00 PM EDT Office Visit Hematology/Oncology [facility] [address] [place] [address] Fatimah Quintero CRNP [address] [place] [phone] 12/24/2023 1:00 PM EDT Imaging Radiology [facility] [address] [place] [address] Scheduled Procedures Name Priority Associated Diagnoses Date/Ti [...] 09/20/2020 LUNG CANCER SCREENING - USE SMARTSET [id number] Completed 03/23/2022, 09/16/2021, 09/16/2020, Additional history exists Pneumococcal Vaccine: Pediatrics (0 to 5 Years) and At-Risk Patients (6 to 64 Years) Completed 04/06/2022, 03/16/2005 GARDASIL-HPV IMMUNIZATION SERIES Aged Out No longer eligible based on patient's age to complete this topic documented as of this encounter Medical Devices Not on filedocumented as of this encounter Visit Diagnoses Diagnosis Type 2 diabetes mellitus with hemoglobin A1c goal of less than 7.0% (HCC) LVH (left ventricular hypertrophy) due to hypertensive disease, without heart failure HTN, goal below 130/80 Unspecified essential hypertension documented in this encounter Care Teams Maintenance Chief Relationship Specialty Start Date End Date Raven Agrawal MD [address] [facility] [place], [place] [phone] PCP - General Internal Medicine 12/27/17 documented as of this encounter
--- OUTSIDE RECORDS SUMMARY | 2023-05-29 12:41 | External Medical Summary | Summary of Care ---
Author Name Unknown Organization [facility] Address [address] [facility] [place] [address] Phone [phone] Care Team Providers Care Cement Storage Worker Name Role Phone Raven Agrawal MD Primary Care Provider [phone] Reason for Referral * Precert (Within 10 days (routine)) - Pending Review Specialty Diagnoses / Procedures Referred By Contac t Referred To Contact Cardiac Studies Diagnoses LVH (left ventricular hypertrophy) due to hypertensive disease, without heart failure HTN, goal below 130/80 Procedures ECHO, COMPLETE (2D), TRANS-THORACIC Jonathon Smith MD [address] [place] [address] Referral ID Status Reason Start Date Expiration Date Visits Requested Visits Authorized [id number] Pending Review Precert 05/22/2023 999 999 Reason for Visit * Reason Onset Date Comments Appointment 11/21/2022 echo Encounter Details Date Type Department Care Team (Late st Contact Info) Description 11/21/2022 Telephone Cardiology, [facility] [address] [place] [address] Jonathon Smith MD [address] [place] [address] Appointment (echo) Allergies No known active allergiesdocumented as of this encounter (statuses as of 02/20/2023) Medications Medication Sig Dispensed Refills Start Date End Date Status VITAMIN D 2000 UNIT PO TABS one tablet daily] 0 Active KEVZARA 200 MG/1.14ML SOSY Injection every other week 0 8 Active Multiple Vitamin (MULTI-DAY) Tablet Take 1 Tab by mouth daily. 0 Active aspirin enteric coated 81 MG TBECIndications: Mixed dyslipidemia,Sub clavian artery stenosis, right (HCC) Take 1 Tab by mouth daily. St 09/16 100 Tab 3 9 Active Meloxicam 15 MG Tablet Take 1 Tablet by mouth every evening. 0 0 Active traMADol (ULTRAM) 50 MG Tablet Take 1 Tablet by mouth daily as needed for Pain. 1 Tab 0 0 Active zolpidem (AMBIEN) 10 MG TabletIndication s:Persistent insomnia Take 1 Tablet by mouth at bedtime. DrMurphy 7 Tab 0 0 Active Melatonin ER 1 MG TBCRIndications: Persistent insomnia at bedtime 0 0 Active Ipratropium-Albu terol 0.5-2.5 (3) MG/3ML Inhalation Solution (Duoneb)Indicati ons:COPD exacerbation (HCC),Bronchitis , complicated Inhale 3 mL via nebulizer every [...] Oral Tablet Extended Release 24 Hour (toPROL XL)Indications:H TN, goal below 130/80 TAKE 1 TABLET BY MOUTH EVERY DAY 90 Tablet 3 3 Active amLODIPine Besylate 2.5 MG Oral Tablet (Norvasc)Indicat ions:HTN, goal below 130/80,LVH (left ventricular hypertrophy) due to hypertensive disease, without heart failure TAKE 1 TABLET BY MOUTH EVERY DAY 90 Tablet 4 3 Active Lisinopril 10 MG Oral Tablet (Prinivil)Indica tions:Type 2 diabetes mellitus with hemoglobin A1c goal of less than 7.0% (HCC),LVH (left ventricular hypertrophy) due to hypertensive disease, without heart failure,HTN, goal below 130/80 TAKE 1 TABLET BY MOUTH ONCE DAILY 90 Tablet 1 3 Active Gabapentin 600 MG Oral Tablet (Neurontin)Indic ations:Type 2 diabetes mellitus with diabetic neuropathy, without long-term current use of insulin (HCC) TAKE 1 TABLET IN MORNING, 1.5 TABLET AT NOON AND 1.5 TABLET BEFORE BEDTIME 360 Tablet 1 3 Active DULoxetine HCl 60 MG Oral Capsule Delayed Release Particles (Cymbalta)Indica tions:Major depressive disorder with single episode, in remission (HCC),Type 2 diabetes mellitus with diabetic neuropathy, without long-term current use of insulin (HCC),Cervical spinal stenosis,Cervica l spondylosis TAKE 1 CAPSULE BY MOUTH IN THE MORNING 90 Capsule 1 3 Active Rosuvastatin Calcium 10 MG Oral Tablet (Crestor)Indicat ions:Type 2 diabetes mellitus with diabetic neuropathy, without long-term current use of insulin (HCC),Mixed dyslipidemia TAKE 1 TABLET BY MOUTH EVERY DAY 90 Tablet 2 3 12/24/19 23 Discontinued Janumet XR 50-1000 MG Oral Tablet Extended Release 24 Hour (SITagliptin-met FORMIN HCl ER)Indications:T ype 2 diabetes mellitus with hemoglobin A1c goal of less than 7.0% (HCC),Type 2 diabetes mellitus with diabetic neuropathy, unspecified (HCC) TAKE 1 TABLET BY MOUTH TWICE A DAY 180 Tablet 1 3 02/05/20 23 Discontinued Budesonide-Formo terol Fumarate 160-4.5 MCG/ACT Inhalation Aerosol (Symbicort)Indic ations:COPD, moderate (HCC) INHALE 2 PUFFS BY MOUTH 2 TIMES A DAY. 10 g 5 3 12/30/19 23 Discontinued(End of Procedure) Vitamin B-12 500 MCG Oral LozengeIndicatio ns:Type 2 diabetes mellitus with diabetic neuropathy, without long-term current use of insulin (HCC) one pill each day 1 Lozenge 0 3 11/28/19 23 Discontinued Varenicline Tartrate 1 MG Oral TabletIndication s:Tobacco use disorder,COPD, moderate (HCC) Take 1 Tablet by mouth in the morning and 1 Tablet before bedtime. As directed on box-use from 11/07/2022. 60 Tablet 4 3 12/04/19 23 Discontinued(Ref ill) Hospital, Clinic, or Other Facility Administered Medication Ordered Dose Route Frequency Start Date End Date Status Albuterol Sulfate (Proventil) (5 MG/ML) 0.5% *conc* inhalation solution 2.5 mgIndications:COPD, moderate (HCC) 2.5 mg NEBULIZER PRN 02/09/2022 02/09/2023 Ended Albuterol Sulfate (Proventil) (2.5 MG/3ML) 0.083% inhalation solution 2.5 mgIndications:COPD, moderate (HCC) 2.5 mg NEBULIZER PRN 02/09/2022 02/09/2023 Ended documented as of this encounter (statuses as of 02/20/2023) Active Problems Problem Noted Date Diagnosed Date Type 2 diabetes mellitus wit h diabetic neuropathy, without long-term current use of insulin 10/06/2022 Mixed dyslipidemia 10/06/2022 COPD, group B, by GOLD 2017 classification 06/08 Overview: Per COPD GOLD Classification Granulomatous lung disease 06/27/2021 Dense breast tissue on mammogram 01/06/2019 Overview: 01/17; Tobacco use disorder 06/09/2018 Elevated hemoglobin 04/04/2018 Overview: 04/1995-MpVnzt-ykk EPO, ferritin,Tsat, neg JAK2 mutn LVH (left ventricular hypert rophy) due to hypertensive disease, without heart failure 12/27/2017 Overview: 06/1730-milq-ar62%, no WMabn,mild A Scl,gr 2 DD HTN, [...] as of this encounter (statuses as of 02/20/2023) Resolved Problems Problem Noted Date Diagnosed Date [...] Real or Tata Meeks, RN, CCRC at [phone] [facility] RESEARCH OTHER*[id number] 04/12/2003 08/26/2009 Overview: Renamed Per Clinical Trials Billing Project. Pt is a participant in the [employer] (Consortium of Rheumatology Researchers of [place]) national data collection study. For further information please call Dr Alban Del Real or Tata Meeks, RN, CCRC at [phone] ABN CERVIX NEC-ANTEPART 11/24/200205/31 Elderly multigravida with an tepartum condition or complication 10/10/2002 06/22/2017 Arthritis, rheumatoid 2017 DIABETES-ANTEPARTUM 06/23/19 18 documented as of this encounter (statuses as of 02/20/2023) Immunizations Name Administration Dates Next Due COVID-19 [...] (Menactra) 03/13/2018 Pneumococcal Conjugate Vacci ne, 20-valent ([id number]) 04/06/2022 SARS-COV-2 (COVID-19) Vaccine Unspecified 2021 Seasonal [...] encounter Miscellaneous Notes * Telephone Encounter - Mark Gauthier LPN - 11/21/2022 1:14 PM EDT Please assist with appt for echo prior to 06/2023 Cardiology appt. * Telephone Encounter - Mark Gauthier LPN - 11/21/2022 1:13 PM EDT ----- Message from Jonathon Smith MD sent at 10/22/2022 4:46 PM EDT ----- Yes, thanks will get it ordered Jonathon ----- Message ----- From: Raven Agrawal MD Sent: 10/06/2022 1:49 PM EDT To: Jonathon Smith MD Hi Did you want her to have echo before your next appt Thank you, Fatmata. documented in this encounter Plan of Treatment Upcoming Encounters Date Type Department Care Team (Late st Contact Info) Description 04/14/2023 5:20 PM EST Office Visit General Internal Medicine [facility] [address] [place] [address] Raven Agrawal MD [address] [place] [address] 04/21/2023 4:00 PM EST Office Visit Cardiology, [facility] [address] [address] Jonathon Smith MD [address] [address] 05/05/2023 1:40 PM EST Office Visit Pulmonary Medicine, [facility] [address] [facility] [place] [address] Lonny Gtz MD [address] [place] [address] 05/24/2023 11:00 AM EDT Cardiac Studies Cardiac Studies, [facility] 132 [facility] [place] [address] 05/24/2023 3:00 PM EDT Office Visit Hematology/Oncology [facility] [address] [facility], [place] [address] Fatimah Quintero CRNP [address] [facility] [place] [address] 12/24/2023 1:00 PM EDT Imaging Radiology [facility] [address]st [facility] 132 [facility] [place] [address] Scheduled Orders Name Type Priority Associated Diagnoses Orde r Schedule ECHO, COMPLETE (2D), TRANS-THORACIC Echocardiology Routine LVH (left ventricular hypertrophy) due to hypertensive disease, without heart failure HTN, goal below 130/80 Expected: 05/22/2023 (Approximate), Expires: 05/21/2024 Scheduled Procedures Name Priority Associated Diagnoses Date/Ti me COLONOSCOPY FLEXIBLE PROXIMA L DIAGNOSTIC Recall Screening for malignant neoplasm of colon Health Maintenance Due Date Last Done Comments HPV/Co-Test 1996 Cologuard 09/13/2011 Fecal Occult Blood Test 09/13/2011 Sigmoidoscopy 09/13/2011 DISCUSS TOBACCO CESSATION (REFER TO SMARTSET #6651) 06/27/2022 06/27/2021, 06/13/2020 COVID-19 Vaccine ( season) [...] 04/03/2022, Additional history exists Mammogram 12/18/2023 12/17/2022, 1006/2021, 10/09/2020, Additional history exists O2 ASSESSMENT COMPLETED IN PAST YEAR FOR COPD 01/07/2024 01/06/2023 Lipid Panel 10/06/2027 10/05/2022, 020 04/2022, 10/21/2021, Additional history exists Colonoscopy 02/03/2028 [...] 09/20/2020 LUNG CANCER SCREENING - USE SMARTSET 24623 Completed 03/23/2022, 09/16/2021, 09/16/2020, Additional history exists Pneumococcal Vaccine: Pediatrics (0 to 5 Years) and At-Risk Patients (6 to 64 Years) Completed 04/06/2022, 03/16/2005 GARDASIL-HPV IMMUNIZATION SERIES Aged Out No longer eligible based on patient's age to complete this topic documented as of this encounter Medical Devices Not on filedocumented as of this encounter Visit Diagnoses Diagnosis LVH (left ventricular hypertrophy) due to hypertensive disease, without heart failure- Primary HTN, goal below 130/80 Unspecified essential hypertension documented in this encounter Care Teams Cement Storage Worker Relationship Specialty Start Date End Date Raven Agrawal MD [address] [facility] [place] [address] PCP - General Internal Medicine 12/27/17 documented as of this encounter
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
--- OUTSIDE RECORDS SUMMARY | 2023-05-29 12:41 | External Medical Summary | Summary of Care ---
Author Name Unknown Organization [facility] Address [address] [place] [address] Phone [phone] Care Team Providers Care Investment Associate Name Role Phone Raven Agrawal MD Primary Care Provider [phone] Reason for Visit * Reason Onset Date Comments Pre Cert/Prior Auth 04/21/2023 Encounter Details Date Type Department Care Team (Late st Contact Info) Description 04/21/2023 Telephone General Internal Medicine [facility] [address] [facility] [place] [address] Raven Agrawal MD 200 [facility] [place] [address] Pre Cert/Prior Auth Allergies No known active allergiesdocumented as of this encounter (statuses as of 04/21/2023) Medications Medication Sig Dispensed Refills Start Date [...] with single episode, in remission ([facility]),Type 2 diabetes mellitus with diabetic neuropathy, without long-term current use of insulin ([facility]),Cervical spinal stenosis,Cervical spondylosis TAKE 1 [...] long-term current use of insulin ([facility]),Mixed dyslipidemia TAKE 1 TABLET BY MOUTH EVERY DAY 90 Tablet 2 12/23/2022 Active Janumet XR 50-1000 MG Oral Tablet Extended Release 24 Hour (SITagliptin-metFORM IN HCl ER)Indications:Type 2 diabetes mellitus with hemoglobin A1c goal of less than 7.0% ([facility]),Type 2 diabetes mellitus with diabetic neuropathy, unspecified ([facility]) TAKE 1 TABLET BY MOUTH TWICE A DAY 180 Tablet 3 02/04/2023 Active Lisinopril 10 MG Oral Tablet (Prinivil)Indication s:Type 2 diabetes mellitus with hemoglobin A1c goal of less than 7.0% ([facility]),LVH (left ventricular hypertrophy) due to hypertensive disease, without heart failure,HTN, goal below 130/80 TAKE 1 TABLET BY MOUTH EVERY DAY 90 Tablet 1 03/10/2023 Active Varenicline Tartrate 1 MG Oral TabletIndications:Gr anulomatous lung disease ([facility]),COPD, group B, by GOLD 2017 classification ([facility]),Tobacco use disorder 0.5 mg Daily x 3 days, then twice daily x 4 days, then 1 mg twice daily -- restart week prior to quit date which she is to decide on 60 Tablet 3 04/14/2023 Active Gabapentin 600 MG Oral Tablet (Neurontin)Indicatio ns:Type 2 diabetes mellitus with diabetic neuropathy, without long-term current use of insulin ([facility]) TAKE 1 TABLET IN MORNING, [...] MG/3ML) 0.083% inhalation solution 2.5 mgIndications:COPD, moderate ([facility]) 2.5 mg NEBULIZER PRN 12/29/2022 12/29/2023 Active documented as of this encounter (statuses as of 04/21/2023) Active Problems Problem Noted Date Diagnosed Date Type 2 diabetes mellitus wit h diabetic neuropathy, without long-term current use of insulin 10/06/2022 Mixed dyslipidemia 10/06/2022 COPD, group B, by GOLD 2017 classification 06/08 Overview: Per COPD GOLD Classification Granulomatous lung disease 06/27/2021 Dense breast tissue on mammogram 01/06/2019 Overview: 01/17; Tobacco use disorder 06/09/2018 Elevated hemoglobin 04/04/2018 Overview: 04/1929-SzLdjf-xsc EPO, ferritin,Tsat, neg JAK2 mutn LVH (left ventricular hypert rophy) due to hypertensive disease, without heart failure 12/27/2017 Overview: 06/1771-ipwk-ri44%, no WMabn,mild A Scl,gr 2 DD HTN, [...] as of this encounter (statuses as of 04/21/2023) Resolved Problems Problem Noted Date Diagnosed Date [...] 06/22/2017 07/21/2017 Undiagnosed cardiac murmurs 03/11/2011 06/22/2017 #[id number] 04/12/2003 Overview: Renamed Per Clinical Trials Billing Project. Pt is a participant in the [facility] (Consortium of Rheumatology Researchers of [place]) national data collection study. For further information please call Dr Alban Del Real or Tata Meeks, RN, CCRC at [phone] [facility] RESEARCH OTHER*[id number] 04/12/2003 08/26/2009 Overview: Renamed Per Clinical Trials Billing Project. Pt is a participant in the [facility] (Consortium of Rheumatology Researchers of [place]) national data collection study. For further information please call Dr Alban Del Real or Tata Meeks, RN, CCRC at [phone] ABN CERVIX NEC-ANTEPART 11/24/200205/31 Elderly multigravida with an tepartum condition or complication 10/10/2002 06/22/2017 Arthritis, rheumatoid 2017 DIABETES-ANTEPARTUM 06/23/19 18 documented as of this encounter (statuses as of 04/21/2023) Immunizations Name Administration Dates Next Due COVID-19 [...] (Menactra) 03/13/2018 Pneumococcal Conjugate Vacci ne, 20-valent ([id number]) 04/06/2022 SARS-COV-2 (COVID-19) Vaccine Unspecified 2021 Seasonal [...] encounter Miscellaneous Notes * Telephone Encounter - Marshall Newman LPN - 04/21/2023 1:15 PM EST Received Prior Auth Request for Varenicline Tartrate 1mg. Prior Auth submitted [place]: [id number] documented in this encounter Plan of Treatment Upcoming Encounters Date Type Department Care Team (Late st Contact Info) Description 05/05/2023 1:40 PM EST Office Visit Pulmonary Medicine, [facility] [address] [facility] [place] [address] Lonny Gtz MD [address] [place] [address] 05/24/2023 11:00 AM EDT Cardiac Studies Cardiac Studies, [facility] 132 [facility] [place] [address] 05/24/2023 3:00 PM EDT Office Visit Hematology/Oncology [facility] [address] [facility] [place] [phone] Fatimah Quintero CRNP [address] [place] [address] [place] [address] 08/10/2023 1:00 PM EDT Office Visit [facility] 132 [facility] [place] [phone] Patricia Guevara DO 132 [facility] [place] [address] 10/13/2023 5:00 PM EDT Office Visit General Internal Medicine [facility] [address] [facility] [place] [address] Raven Agrawal MD 200 [facility] [place] [address] 12/24/2023 1:00 PM EDT Imaging Radiology [facility] [address] [facility] 132 [facility] [place] [address] Scheduled Procedures Name Priority Associated Diagnoses Date/Ti me COLONOSCOPY FLEXIBLE PROXIMA L DIAGNOSTIC Recall Screening for malignant neoplasm of colon Health Maintenance Due Date Last Done Comments HPV/Co-Test 1996 Cologuard 09/13/2011 Fecal Occult Blood Test 09/13/2011 Sigmoidoscopy 09/13/2011 DISCUSS TOBACCO CESSATION (REFER TO SMARTSET #3021) 06/27/2022 06/27/2021, 06/13/2020 COVID-19 Vaccine ( season) [...] 04/03/2022, Additional history exists Mammogram 12/18/2023 12/17/2022, 100 06/2021, 10/09/2020, Additional history exists O2 ASSESSMENT COMPLETED IN PAST YEAR FOR COPD 01/07/2024 01/06/2023 Lipid Panel 10/06/2027 10/05/2022, 02/0 04/2022, 10/21/2021, [...] 09/20/2020 LUNG CANCER SCREENING - USE SMARTSET 10419 Completed 03/23/2022, 09/16/2021, 09/16/2020, Additional history exists Pneumococcal Vaccine: Pediatrics (0 to 5 Years) and At-Risk Patients (6 to 64 Years) Completed 04/06/2022, 03/16/2005 GARDASIL-HPV IMMUNIZATION SERIES Aged Out No longer eligible based on patient's age to complete this topic documented as of this encounter Medical Devices Not on filedocumented as of this encounter Care Teams Investment Associate Relationship Specialty Start Date End Date Raven Agrawal MD [address] [place] [address] PCP - General Internal Medicine 12/27/17 documented as of this encounter
--- OUTSIDE RECORDS SUMMARY | 2023-05-29 12:41 | External Medical Summary | Summary of Care ---
Author Name Unknown Organization [facility] Address [address] [place] [address] Phone [phone] Care Team Providers Care Dukey Rider Name Role Phone Raven Agrawal MD Primary Care Provider [phone] Reason for Visit * Reason Onset Date Comments Advice 02/16/2023 Encounter Details Date Type Department Care Team (Late st Contact Info) Description 02/16/2023 Telephone General Internal Medicine [facility] [place] 200 [facility] [place] [address] Raven Agrawal MD 200 [facility] [place] [address] Advice Allergies No known active allergiesdocumented as of this encounter (statuses as of 03/11/2023) Medications Medication Sig Dispensed Refills Start Date [...] 0 0 Active zolpidem (AMBIEN) 10 MG TabletIndications: [...] neuropathy, without long-term current use of insulin ([facility]) TAKE 1 TABLET IN MORNING, 1.5 TABLET AT NOON AND 1.5 TABLET BEFORE BEDTIME 360 Tablet 1 3 Active DULoxetine HCl 60 MG Oral Capsule Delayed Release Particles (Cymbalta)Indicati ons:Major depressive disorder with single episode, in remission (HCC),Type 2 diabetes mellitus with diabetic neuropathy, without long-term current use of insulin ([facility]),Cervical spinal stenosis,Cervical spondylosis TAKE 1 CAPSULE BY [...] neuropathy, without long-term current use of insulin ([facility]),Mixed dyslipidemia TAKE 1 TABLET BY MOUTH EVERY DAY 90 Tablet 2 3 Active Janumet XR 50-1000 MG Oral Tablet Extended Release 24 Hour (SITagliptin-metFO RMIN HCl ER)Indications:Typ e 2 diabetes mellitus with hemoglobin A1c goal of less than 7.0% ([facility]),Type 2 diabetes mellitus with diabetic neuropathy, unspecified ([facility]) TAKE 1 TABLET BY MOUTH TWICE A DAY 180 Tablet 3 3 Active Nirmatrelvir&Riton avir 300/100 20 x 150 MG & 10 x 100MG Oral Tablet Therapy Pack (Paxlovid)Indicati ons:COVID-19 virus infection,COPD, group B, by GOLD 2017 classification ([facility]) Take 2 pink tablets of Nirmatrelvir and 1 white tablet of Ritonavir two times a day by mouth. 30 Tablet 0 3 Active Lisinopril 10 MG Oral Tablet (Prinivil)Indicati ons:Type 2 diabetes mellitus with hemoglobin A1c goal of less than 7.0% ([facility]),LVH (left ventricular hypertrophy) due to hypertensive disease, [...] as of this encounter (statuses as of 03/11/2023) Active Problems Problem Noted Date Diagnosed Date Type 2 diabetes mellitus wit h diabetic neuropathy, without long-term current use of insulin 10/06/2022 Mixed dyslipidemia 10/06/2022 COPD, group B, by GOLD 2017 classification 06/08 Overview: Per COPD GOLD Classification Granulomatous lung disease 06/27/2021 Dense breast tissue on mammogram 01/06/2019 Overview: 01/17; Tobacco use disorder 06/09/2018 Elevated hemoglobin 04/04/2018 Overview: 04/1983-EyDfnk-ynk EPO, ferritin,Tsat, neg JAK2 mutn LVH (left ventricular hypert rophy) due to hypertensive disease, without heart failure 12/27/2017 Overview: 06/1701-wlqz-tf12%, no WMabn,mild A Scl,gr 2 DD HTN, [...] as of this encounter (statuses as of 03/11/2023) Resolved Problems Problem Noted Date Diagnosed Date [...] Real or Tata Meeks, RN, CCRC at [phone] [facility] RESEARCH OTHER*[id number] 04/12/2003 08/26/2009 Overview: Renamed Per Clinical Trials Billing Project. Pt is a participant in the [facility] (Consortium of Rheumatology Researchers [place]) national data collection study. For further information please call Dr Alban Del Real or Tata Meeks, RN, CCRC at [phone] ABN CERVIX NEC-ANTEPART 11/24/200205/31 Elderly multigravida with an tepartum condition or complication 10/10/2002 06/22/2017 Arthritis, rheumatoid 2017 DIABETES-ANTEPARTUM 06/23/19 18 documented as of this encounter (statuses as of 03/11/2023) Immunizations Name Administration Dates Next Due COVID-19 [...] (Menactra) 03/13/2018 Pneumococcal Conjugate Vacci ne, 20-valent ([id number]) 04/06/2022 Pneumococcal Polysaccharide PPV23 (Pneumovax) 03/16/2005 SARS-COV-2 [...] Telephone Encounter - Cheyenne Tang LPN - 03/11/2023 4:11 PM EST Pt read MYG * Telephone Encounter - Marshall Newman LPN - 03/04/2023 2:10 PM EST Left message for patient to return call. * Telephone Encounter - Sana Cox LPN - 02/17/2023 8:37 AM EST Attempted to contact pt l/m on answering machine for pt to call the office. Sana Cox LPN * Telephone Encounter - Raven Agrawal MD - 02/16/2023 5:48 PM EST Isolate for 5 days from onset of symptoms, increase intake of fluids, Tylenol as needed for fever or body aches. Continue to wear mask of for for 5 additional days when out of the home.If not willing/able to wear mask needs to isolate for 10 days. Paxlovid Rx sent, hold rosuvastatin while on medication No alcohol or tylenol >2gm/day while on medication Schedule tele video appointment if any worsening symptoms or go to ER. Myg sent also., pl call her * Telephone Encounter - Lauren Delgado OSA - 02/16/2023 12:31 PM EST Reason for patient call/what is patient requesting? paxlovid Have you had symptoms of COVID-19 such as fever, sore throat, shortness of breath? COVID19 Symptoms:yes/just fever Date of first symptoms: 02/15/23 Date of last fever: Date of last symptoms: Have you had close exposure to someone who tested positive for COVID-19? COVID19 Exposure: unknown Date of first exposure: Date of last exposure: Testing location requested: Positive COVID 19 test in the past 90 days? Clinic Test Home test: yes Did you have 2 vaccines: yes Boosters: yes Call Details are Required documented in this encounter Plan of Treatment Upcoming Encounters Date Type Department Care Team (Late st Contact Info) Description 04/14/2023 5:20 PM EST Office Visit General Internal Medicine [facility] 200 [facility] [place] [address] Raven Agrawal MD 200 [place] [address] 04/21/2023 4:00 PM EST Office Visit Cardiology, [facility] 132 [place] [address] Jonathon Smith MD 132 [place] [address] 05/05/2023 1:40 PM EST Office Visit Pulmonary Medicine, [facility] [address] [facility]ny [facility] [address] [facility] [address] 05/24/2023 11:00 AM EDT Cardiac Studies [facility], [facility] [place] [address] 05/24/2023 3:00 PM EDT Office Visit Hematology/Oncology [facility] 200 [facility] [place], [place] [address] Fatimah Quintero CRNP [address] [place] [address] 12/24/2023 1:00 PM EDT Imaging Radiology [facility]st [facility] [place] [address] Scheduled Procedures Name Priority Associated Diagnoses Date/Ti me COLONOSCOPY FLEXIBLE PROXIMA L DIAGNOSTIC Recall Screening for malignant neoplasm of colon Health Maintenance Due Date Last Done Comments HPV/Co-Test 1996 Cologuard 09/13/2011 Fecal Occult Blood Test 09/13/2011 Sigmoidoscopy 09/13/2011 DISCUSS TOBACCO CESSATION (REFER TO SMARTSET #1132) 06/27/2022 06/27/2021, 06/13/2020 COVID-19 Vaccine ( season) [...] 09/20/2020 LUNG CANCER SCREENING - USE SMARTSET 54313 Completed 03/23/2022, 09/16/2021, 09/16/2020, Additional history exists Pneumococcal Vaccine: Pediatrics (0 to 5 Years) and At-Risk Patients (6 to 64 Years) Completed 04/06/2022, 03/16/2005 GARDASIL-HPV IMMUNIZATION SERIES Aged Out No longer eligible based on patient's age to complete this topic documented as of this encounter Medical Devices Not on filedocumented as of this encounter Visit Diagnoses Diagnosis COVID-19 virus infection- Primary COPD, group B, by GOLD 2017 classification (HCC) documented in this encounter Care Teams Dukey Rider Relationship Specialty Start Date End Date Raven Agrawal MD 200 [place] [address] PCP - General Internal Medicine 12/27/17 documented as of this encounter
--- OUTSIDE RECORDS SUMMARY | 2023-05-29 12:41 | External Medical Summary | Summary of Care ---
Author Name Unknown Organization [facility] Address [address] [place] [place] [address] Phone [phone] Care Team Providers Care Elevating Grader Operator Name Role Phone Raven Agrawal MD Primary Care Provider [phone] Reason for Visit * Reason Onset Date Comments Advice 02/16/2023 Encounter Details Date Type Department Care Team (Late st Contact Info) Description 02/16/2023 Telephone General Internal Medicine [facility] [place] [address] [facility] [place] [address] Raven Agrawal MD [address] [facility] [place] [address] Advice Allergies No known active allergiesdocumented as of this encounter (statuses as of 03/04/2023) Medications Medication Sig Dispensed Refills Start Date [...] EVERY DAY 90 Tablet 4 07/24/2022 Active Lisinopril 10 MG Oral Tablet (Prinivil)Indication s:Type 2 diabetes mellitus with hemoglobin A1c goal of less than 7.0% ([facility]),LVH (left ventricular hypertrophy) due to hypertensive disease, without heart failure,HTN, goal below 130/80 TAKE 1 TABLET BY MOUTH ONCE DAILY 90 Tablet 1 09/15/2022 Active Gabapentin 600 MG Oral Tablet (Neurontin)Indicatio ns:Type 2 diabetes mellitus with diabetic neuropathy, without long-term current use of insulin ([facility]) TAKE 1 TABLET IN MORNING, 1.5 TABLET AT NOON AND 1.5 TABLET BEFORE BEDTIME 360 Tablet 1 10/06/2022 Active DULoxetine HCl 60 MG Oral Capsule [...] 60 Blister Dosing Unit 5 11/27/2022 Active Varenicline Tartrate 1 MG Oral TabletIndications:To bacco use disorder,COPD, moderate (HCC) Take 1 Tablet by mouth in the morning and 1 Tablet before bedtime. As directed on box-use from 11/07/2022. 60 Tablet 4 12/04/2022 Active Additional Information Patient not taking.Reported on 12/29/2022 Rosuvastatin Calcium 10 MG Oral Tablet (Crestor)Indications :Type 2 diabetes mellitus with diabetic neuropathy, without long-term current use of insulin ([facility]),Mixed dyslipidemia TAKE 1 TABLET BY MOUTH EVERY DAY 90 Tablet 2 12/23/2022 Active Janumet XR 50-1000 MG Oral Tablet Extended Release 24 Hour (SITagliptin-metFORM IN HCl ER)Indications:Type 2 diabetes mellitus with hemoglobin A1c goal of less than 7.0% ([facility]),Type 2 diabetes mellitus with diabetic neuropathy, unspecified ([facility]) TAKE 1 TABLET BY MOUTH TWICE A DAY 180 Tablet 3 02/04/2023 Active Nirmatrelvir&Ritonav ir 300/100 20 x 150 MG & 10 x 100MG Oral Tablet Therapy Pack (Paxlovid)Indication s:COVID-19 virus infection,COPD, group B, by GOLD 2017 classification ([facility]) Take 2 pink tablets of Nirmatrelvir and 1 white tablet of Ritonavir two times a day by mouth. 30 Tablet 0 02/16/2023 Active Hospital, Clinic, or Other Facility Administered Medication Ordered Dose Route Frequency Start Date End Date Status Albuterol Sulfate (Proventil) (2.5 MG/3ML) 0.083% inhalation solution 2.5 mgIndications:COPD, moderate (HCC) 2.5 mg NEBULIZER PRN 12/29/2022 12/29/2023 Active documented as of this encounter (statuses as of 03/04/2023) Active Problems Problem Noted Date Diagnosed Date Type 2 diabetes mellitus wit h diabetic neuropathy, without long-term current use of insulin 10/06/2022 Mixed dyslipidemia 10/06/2022 COPD, group B, by GOLD 2017 classification 06/08 Overview: Per COPD GOLD Classification Granulomatous lung disease 06/27/2021 Dense breast tissue on mammogram 01/06/2019 Overview: 01/17; Tobacco use disorder 06/09/2018 Elevated hemoglobin 04/04/2018 Overview: 04/1903-VmAhja-vsm EPO, ferritin,Tsat, neg JAK2 mutn LVH (left ventricular hypert rophy) due to hypertensive disease, without heart failure 12/27/2017 Overview: 06/1754-zqxa-vz95%, no WMabn,mild A Scl,gr 2 DD HTN, [...] as of this encounter (statuses as of 03/04/2023) Resolved Problems Problem Noted Date Diagnosed Date [...] Project. Pt is a participant in the [facility] (Consortium of Rheumatology Researchers [place]) national data collection study. For further information please call Dr Alban Del Real or Tata Meeks, RN, CCRC at [phone] [facility] RESEARCH OTHER*[id number] 04/12/2003 08/26/2009 Overview: Renamed Per Clinical Trials Billing Project. Pt is a participant in the [facility] (Consortium of Rheumatology Researchers [place]) national data collection study. For further information please call Dr Alban Del Real or Tata Meeks, RN, CCRC at [phone] ABN CERVIX NEC-ANTEPART 11/24/200205/31 Elderly multigravida with an tepartum condition or complication 10/10/2002 06/22/2017 Arthritis, rheumatoid 2017 DIABETES-ANTEPARTUM 06/23/19 18 documented as of this encounter (statuses as of 03/04/2023) Immunizations Name Administration Dates Next Due COVID-19 [...] (Menactra) 03/13/2018 Pneumococcal Conjugate Vacci ne, 20-valent ([id number]) 04/06/2022 Pneumococcal Polysaccharide PPV23 (Pneumovax) 03/16/2005 SARS-COV-2 [...] PM EST Office Visit General Internal Medicine [address] [place], [place] [address] Raven Agrawal MD [address] [facility] [place], [place] [address] 04/21/2023 4:00 PM EST Office Visit Cardiology, [facility] 132 [place] [address] Jonathon Smith MD [address] [facility] [place] [address] 05/05/2023 1:40 PM EST Office Visit Pulmonary Medicine, [facility] 132 [place] [address] Lonny Gtz MD [address] [place] [facility] [place] [address] 05/24/2023 11:00 AM EDT Cardiac Studies Cardiac Studies, [facility] 132 [place] [address] 05/24/2023 3:00 PM EDT Office Visit Hematology/Oncology [facility] [address] [facility] [place] [address] Fatimah Quintero CRNP [address] [place] [address] 12/24/2023 1:00 PM EDT Imaging Radiology [facility] 1st [facility] 132 [place] [address] Scheduled Procedures Name Priority Associated Diagnoses Date/Ti [...] Additional history exists Hepatitis B Completed 08/09/2013, 01/0 09/2013, 01/31/2013 Hepatitis C Screening Completed 08/12/2015 MENINGOCOCCAL (MENACTRA/MENVEO) Aged Out 03/13/2018 No longer eligible based on patient's age to complete this topic Zoster Vaccines Completed 05/08/2019, 01/17/2019 Alpha-1 Antitrypsin Completed 09/20/2020 LUNG CANCER SCREENING - USE SMARTSET 64743 Completed 03/23/2022, 09/16/2021, 09/16/2020, Additional history exists [...] (HCC) documented in this encounter Care Teams Elevating Grader Operator Relationship Specialty Start Date End Date Raven Agrawal MD [address] [place] [address] PCP - General Internal Medicine 12/27/17 documented as of this encounter
--- OUTSIDE RECORDS SUMMARY | 2023-05-29 12:41 | External Medical Summary | Summary of Care ---
Author Name Unknown Organization [facility] Address [address] [place] [facility] [place] [address] Phone [phone] Care Team Providers Care Medical Care Evaluation Specialist Name Role Phone Raven Agrawal MD Primary Care Provider [phone] Reason for Visit * Reason Onset Date Comments Health Maintenance 03/12/2023 Encounter Details Date Type Department Care Team (Late st Contact Info) Description 03/12/2023 Telephone General Internal Medicine [facility] [place] [address] [facility] [place] [address] Raven Agrawal MD 200 [facility] [place] [address] Health Maintenance Allergies No known active allergiesdocumented as of this encounter (statuses as of 03/12/2023) Medications Medication Sig Dispensed Refills Start Date [...] EVERY DAY 90 Tablet 4 07/24/2022 Active Gabapentin 600 MG Oral Tablet (Neurontin)Indicatio ns:Type 2 diabetes mellitus with diabetic neuropathy, without long-term current use of insulin ([facility]) TAKE 1 TABLET IN MORNING, 1.5 TABLET AT NOON AND 1.5 TABLET BEFORE BEDTIME 360 Tablet 1 10/06/2022 Active DULoxetine HCl 60 MG Oral Capsule Delayed Release Particles (Cymbalta)Indication s:Major depressive disorder with single episode, in remission (HCC),Type 2 diabetes mellitus with diabetic neuropathy, without long-term current use of insulin ([facility]),Cervical spinal stenosis,Cervical spondylosis TAKE [...] neuropathy, without long-term current use of insulin ([facility]),Mixed dyslipidemia TAKE 1 TABLET BY MOUTH EVERY DAY 90 Tablet 2 12/23/2022 Active Janumet XR 50-1000 MG Oral Tablet Extended Release 24 Hour (SITagliptin-metFORM IN HCl ER)Indications:Type 2 diabetes mellitus with hemoglobin A1c goal of less than 7.0% ([facility]),Type 2 diabetes mellitus with diabetic neuropathy, unspecified ([facility]) TAKE 1 TABLET BY MOUTH TWICE A DAY 180 Tablet 3 02/04/2023 Active Nirmatrelvir&Ritonav ir 300/100 20 x 150 MG & 10 x 100MG Oral Tablet Therapy Pack (Paxlovid)Indication s:COVID-19 virus infection,COPD, group B, by GOLD 2017 classification ([facility]) Take 2 pink tablets of Nirmatrelvir and 1 white tablet of Ritonavir two times a day by mouth. 30 Tablet 0 02/16/2023 Active Lisinopril 10 MG Oral Tablet (Prinivil)Indication s:Type 2 diabetes mellitus with hemoglobin A1c goal of less than 7.0% ([facility]),LVH (left ventricular hypertrophy) due to hypertensive disease, without heart failure,HTN, goal below 130/80 TAKE 1 TABLET BY MOUTH EVERY DAY 90 Tablet 1 03/10/2023 Active Hospital, Clinic, or Other Facility Administered Medication Ordered Dose Route Frequency Start Date End Date Status Albuterol Sulfate (Proventil) (2.5 MG/3ML) 0.083% inhalation solution 2.5 mgIndications:COPD, moderate (HCC) 2.5 mg NEBULIZER PRN 12/29/2022 12/29/2023 Active documented as of this encounter (statuses as of 03/12/2023) Active Problems Problem Noted Date Diagnosed Date Type 2 diabetes mellitus wit h diabetic neuropathy, without long-term current use of insulin 10/06/2022 Mixed dyslipidemia 10/06/2022 COPD, group B, by GOLD 2017 classification 06/08 Overview: Per COPD GOLD Classification Granulomatous lung disease 06/27/2021 Dense breast tissue on mammogram 01/06/2019 Overview: 01/17; Tobacco use disorder 06/09/2018 Elevated hemoglobin 04/04/2018 Overview: 04/1941-XmIrxq-avf EPO, ferritin,Tsat, neg JAK2 mutn LVH (left ventricular hypert rophy) due to hypertensive disease, without heart failure 12/27/2017 Overview: 06/1768-chgu-iu39%, no WMabn,mild A Scl,gr 2 DD HTN, [...] as of this encounter (statuses as of 03/12/2023) Resolved Problems Problem Noted Date Diagnosed Date [...] Project. Pt is a participant in the [facility] (Consortium of Rheumatology Researchers of [place]) national data collection study. For further information please call Dr Alban Del Real or Tata Meeks, RN, CCRC at [phone] [facility] RESEARCH OTHER*[id number] 04/12/2003 08/26/2009 Overview: Renamed Per Clinical Trials Billing Project. Pt is a participant in the [facility] (Consortium of Rheumatology Researchers of [place]) national data collection study. For further information please call Dr Alban Del Real or Tata Meeks, RN, CCRC at [phone] ABN CERVIX NEC-ANTEPART 11/24/200205/31 Elderly multigravida with an tepartum condition or complication 10/10/2002 06/22/2017 Arthritis, rheumatoid 2017 DIABETES-ANTEPARTUM 06/23/19 18 documented as of this encounter (statuses as of 03/12/2023) Immunizations Name Administration Dates Next Due COVID-19 [...] (Menactra) 03/13/2018 Pneumococcal Conjugate Vacci ne, 20-valent ([id number]) 04/06/2022 SARS-COV-2 (COVID-19) Vaccine Unspecified 2021 Seasonal [...] encounter Miscellaneous Notes * Telephone Encounter - Fabiana Velez LPN - 03/12/2023 3:04 PM EST Care Gaps Comprehensive Care Outreach Last Office/Telemedicine Visit: 12/29/2022 (in office), 02/13/2020 (telemedicine) Next Office Visit: 04/14/2023 Hemoglobin AIC Results: Lab Results Component Value Date/Time HEMOGLOBIN A1C - [facility] 6.9 (H) 10/05/2022 03:58 PM HEMOGLOBIN A1C - [facility] 6.6 (H) 04/03/2022 02:17 PM HEMOGLOBIN A1C - [facility] 6.4 (H) 10/21/2021 04:06 PM HEMOGLOBIN A1C - [facility] 6.8 (H) 03/25/2020 12:28 PM HEMOGLOBIN A1C - [facility] 7.2 (H) 07/04/2019 12:34 PM HEMOGLOBIN A1C - [facility] 7.3 (H) 01/03/2019 01:13 PM Reviewed Health Maintenance below: Health Maintenance Topic Date Due DISCUSS TOBACCO CESSATION (REFER TO SMARTSET #3291) 06/27/2022 Influenza Vaccine (FLU shot) (1) 10/30/2022 COVID-19 Vaccine ( season) 2022 Diabetic Eye Exam 01/15/2023 Albumin/Creatinine Ratio 04/03/2023 Diabetic Foot Exam 04/06/2023 Depression Screening 04/06/2023 HbA1c 04/07/2023 Cervical Cancer Screening 09/25/2023 Eye my g Lab already ordered Care Gap Outreach Action Taken: Kofikafet message sent documented in this encounter Plan of Treatment Upcoming Encounters Date Type Department Care Team (Late st Contact Info) Description 04/14/2023 5:20 PM EST Office Visit General Internal Medicine [facility] [address] [facility] [address] [place] [address] Raven Agrawal MD 200 [facility] [place] [address] 04/21/2023 4:00 PM EST Office Visit Cardiology, [facility] [address] [place] [address] Jonathon Smith MD [address] [place] [address] 05/05/2023 1:40 PM EST Office Visit Pulmonary Medicine, [facility] [address] [place] [address] [facility]tz [facility] [address] [facility] [address] 05/24/2023 11:00 AM EDT Cardiac Studies Cardiac Studies, [facility] 132 [facility] [place] [address] 05/24/2023 3:00 PM EDT Office Visit Hematology/Oncology [facility] [address] [place] [address] Fatimah Quintero CRNP 400 [facility] [place] [address] 12/24/2023 1:00 PM EDT Imaging Radiology [facility] [facility] 132 [facility] [place] [address] Scheduled Procedures Name Priority Associated Diagnoses Date/Ti me COLONOSCOPY FLEXIBLE PROXIMA L DIAGNOSTIC Recall Screening for malignant neoplasm of colon Health Maintenance Due Date Last Done Comments HPV/Co-Test 1996 Cologuard 09/13/2011 Fecal Occult Blood Test 09/13/2011 Sigmoidoscopy 09/13/2011 DISCUSS TOBACCO CESSATION (REFER TO SMARTSET #8481) 06/27/2022 06/27/2021, 06/13/2020 COVID-19 Vaccine ( season) [...] COPD 01/07/2024 01/06/2023 Lipid Panel 10/06/2027 10/05/2022, 0 04/2022, 10/21/2021, Additional history exists Colonoscopy 02/03/2028 [...] 09/20/2020 LUNG CANCER SCREENING - USE SMARTSET 11092 Completed 03/23/2022, 09/16/2021, 09/16/2020, Additional history exists Pneumococcal Vaccine: Pediatrics (0 to 5 Years) and At-Risk Patients (6 to 64 Years) Completed 04/06/2022, 03/16/2005 GARDASIL-HPV IMMUNIZATION SERIES Aged Out No longer eligible based on patient's age to complete this topic documented as of this encounter Medical Devices Not on filedocumented as of this encounter Care Teams Medical Care Evaluation Specialist Relationship Specialty Start Date End Date Raven Agrawal MD [address] [place] [address] PCP - General Internal Medicine 12/27/17 documented as of this encounter
--- OUTSIDE RECORDS SUMMARY | 2023-05-29 12:42 | External Medical Summary | Summary of Care ---
Author Name Unknown Organization [facility] Address [address] [place] [address] Phone [phone] Care Team Providers Care Informatics Scientist Name Role Phone Raven Agrawal MD Primary Care Provider [phone] Reason for Visit * Reason Comments eRx-Medication Refill Encounter Details Date Type Department Care Team (Late st Contact Info) Description 02/04/2023 Refill General Internal Medicine [facility] [place] [address] [facility] [place] [address] Raven Agrawal MD 200 [facility] [place] [address] Type 2 diabetes mellitus with hemoglobin A1c goal of less than 7.0% ([facility]); Type 2 diabetes mellitus with diabetic neuropathy, unspecified ([facility]) Allergies No known active allergiesdocumented as of this encounter (statuses as of 02/04/2023) Medications Medication Sig Dispensed Refills Start Date End Date Status VITAMIN D 2000 UNIT PO TABS one tablet daily] 0 Active KEVZARA 200 MG/1.14ML SOSY Injection every other week 0 8 Active Multiple Vitamin (MULTI-DAY) Tablet Take 1 Tab by mouth daily. 0 Active aspirin enteric coated 81 MG TBECIndications:M ixed dyslipidemia,Subc lavian artery stenosis, right (HCC) Take 1 Tab by mouth daily. St 09/16 100 Tab 3 9 Active Meloxicam 15 MG Tablet Take 1 Tablet by mouth every evening. 0 0 Active traMADol (ULTRAM) 50 MG Tablet Take 1 Tablet by mouth daily as needed for Pain. 1 Tab 0 0 Active zolpidem (AMBIEN) 10 MG TabletIndications :Persistent insomnia Take 1 Tablet by mouth at bedtime. DrMurphy 7 Tab 0 0 Active Melatonin ER 1 MG TBCRIndications:P ersistent insomnia at bedtime 0 0 Active Ipratropium-Albut rudolph 0.5-2.5 (3) MG/3ML Inhalation Solution (Duoneb)Indicatio ns:COPD exacerbation (HCC),Bronchitis, complicated Inhale 3 mL via [...] Oral Tablet Extended Release 24 Hour (toPROL XL)Indications:HT N, goal below 130/80 TAKE 1 TABLET BY MOUTH EVERY DAY 90 Tablet 3 3 Active amLODIPine Besylate 2.5 MG Oral Tablet (Norvasc)Indicati ons:HTN, goal below 130/80,LVH (left ventricular hypertrophy) due to hypertensive disease, without heart failure TAKE 1 TABLET BY MOUTH EVERY DAY 90 Tablet 4 3 Active Lisinopril 10 MG Oral Tablet (Prinivil)Indicat ions:Type 2 diabetes mellitus with hemoglobin A1c goal of less than 7.0% ([facility]),LVH (left ventricular hypertrophy) due to hypertensive disease, without heart failure,HTN, goal below 130/80 TAKE 1 TABLET BY MOUTH ONCE DAILY 90 Tablet 1 3 Active Gabapentin 600 MG Oral Tablet (Neurontin)Indica tions:Type 2 diabetes mellitus with diabetic neuropathy, without long-term current use of insulin ([facility]) TAKE 1 TABLET IN MORNING, 1.5 TABLET AT NOON AND 1.5 TABLET BEFORE BEDTIME 360 Tablet 1 3 Active DULoxetine HCl 60 MG Oral Capsule Delayed Release Particles (Cymbalta)Indicat ions:Major depressive disorder with single episode, in remission ([facility]),Type 2 diabetes mellitus with diabetic neuropathy, without long-term current use of insulin (HCC),Cervical spinal stenosis,Cervical spondylosis TAKE 1 CAPSULE BY MOUTH IN THE MORNING 90 Capsule 1 3 Active Fluticasone-Umecl idin-Vilant 100-62.5-25 MCG/ACT Aerosol Powder Breath Activated (Trelegy Ellipta)Indicatio ns:Hospital discharge follow-up,COPD exacerbation (HCC),Rhinovirus infection,COPD, moderate (HCC) Inhale 1 Puff by mouth in the morning. Start 11/27/2022 and stop symbicort (cancel Rx anoro ellipta). 60 Blister Dosing Unit 5 3 Active Varenicline Tartrate 1 MG Oral TabletIndications :Tobacco use disorder,COPD, moderate (HCC) Take 1 Tablet by mouth in the morning and 1 Tablet before bedtime. As directed on box-use from 11/07/2022. 60 Tablet 4 3 Active Additional Information Patient not taking.Reported on 12/29/2022 Rosuvastatin Calcium 10 MG Oral Tablet (Crestor)Indicati ons:Type 2 diabetes mellitus with diabetic neuropathy, without long-term current use of insulin (HCC),Mixed dyslipidemia TAKE 1 TABLET BY MOUTH EVERY DAY 90 Tablet 2 3 Active Janumet XR 50-1000 MG Oral Tablet Extended Release 24 Hour (SITagliptin-metF ORMIN HCl ER)Indications:Ty pe 2 diabetes mellitus with hemoglobin A1c goal of less than 7.0% (HCC),Type 2 diabetes mellitus with diabetic neuropathy, unspecified (HCC) TAKE 1 TABLET BY MOUTH TWICE A DAY 180 Tablet 3 3 Active Janumet XR 50-1000 MG Oral Tablet Extended Release 24 Hour (SITagliptin-metF ORMIN HCl ER)Indications:Ty pe 2 diabetes mellitus with hemoglobin A1c goal of less than 7.0% (HCC),Type 2 diabetes mellitus with diabetic neuropathy, unspecified (HCC) TAKE 1 TABLET BY MOUTH TWICE A DAY 180 Tablet 1 3 02/05/20 23 Discontinued Hospital, Clinic, or Other Facility Administered Medication Ordered Dose Route Frequency Start Date End Date Status Albuterol Sulfate (Proventil) (5 MG/ML) 0.5% *conc* inhalation solution 2.5 mgIndications:COPD, moderate (HCC) 2.5 mg NEBULIZER PRN 02/09/2022 02/09/2023 Active Albuterol Sulfate (Proventil) (2.5 MG/3ML) 0.083% inhalation solution 2.5 mgIndications:COPD, moderate (HCC) 2.5 mg NEBULIZER PRN 02/09/2022 02/09/2023 Active Albuterol Sulfate (Proventil) (2.5 MG/3ML) 0.083% inhalation solution 2.5 mgIndications:COPD, moderate (HCC) 2.5 mg NEBULIZER PRN 12/29/2022 12/29/2023 Active documented as of this encounter (statuses as of 02/04/2023) Active Problems Problem Noted Date Diagnosed Date Type 2 diabetes mellitus wit h diabetic neuropathy, without long-term current use of insulin 10/06/2022 Mixed dyslipidemia 10/06/2022 COPD, group B, by GOLD 2017 classification 06/08 Overview: Per COPD GOLD Classification Granulomatous lung disease 06/27/2021 Dense breast tissue on mammogram 01/06/2019 Overview: 01/17; Tobacco use disorder 06/09/2018 Elevated hemoglobin 04/04/2018 Overview: 04/1923-MuZmzg-dys EPO, ferritin,Tsat, neg JAK2 mutn LVH (left ventricular hypert rophy) due to hypertensive disease, without heart failure 12/27/2017 Overview: 06/1719-jjqm-fz94%, no WMabn,mild A Scl,gr 2 DD HTN, [...] as of this encounter (statuses as of 02/04/2023) Resolved Problems Problem Noted Date Diagnosed Date [...] Real or Tata Meeks, RN, CCRC at [phone] [facility] RESEARCH OTHER*[id number] 04/12/2003 08/26/2009 Overview: Renamed Per Clinical Trials Billing Project. Pt is a participant in the [employer] (Consortium of Rheumatology Researchers of [place]) national data collection study. For further information please call Dr Alban Del Real or Tata Meeks, RN, CCRC at [phone] ABN CERVIX NEC-ANTEPART 11/24/200205/31 Elderly multigravida with an tepartum condition or complication 10/10/2002 06/22/2017 Arthritis, rheumatoid 2017 DIABETES-ANTEPARTUM 06/23/19 18 documented as of this encounter (statuses as of 02/04/2023) Immunizations Name Administration Dates Next Due COVID-19 [...] (Menactra) 03/13/2018 Pneumococcal Conjugate Vacci ne, 20-valent ([id number]) 04/06/2022 SARS-COV-2 (COVID-19) Vaccine Unspecified 2021 SEASONAL INFLUENZA, PF, 6 M & Above, IM , (FLULAVAL or FLUZONE) 01/03/2019 Seasonal Influenza Virus Vac cine, Unspecified Formulation 01/03/2019,01/31/2013,11/17/2011 Seasonal Influenza, Split, I IV3, With Preserve, [...] 3:23 PM EDT Sexual Orientation Straight 06/28/2018 3 :23 PM EDT Job Start Date Occupation Industry Not on file Not on file Not on file documented as of this encounter Miscellaneous Notes * Telephone Encounter - Jillian Thornton [facility] - 02/04/2023 11:02 AM EST Signed Prescriptions: Disp Refills Janumet XR 50-1000 MG Oral Tablet Extended*180 Ta*3 Sig: TAKE 1 TABLET BY MOUTH TWICE A DAYAuthorizing Provider: Francis AGRAWAL User: JILLIAN THORNTON------ documented in this encounter Plan of Treatment Upcoming Encounters Date Type Department Care Team (Late st Contact Info) Description 04/14/2023 5:20 PM EST Office Visit General Internal Medicine [place] [address] [address] [place] [address] Raven Agrawal MD [address] [place] [address] [place] [address] 04/21/2023 4:00 PM EST Office Visit Cardiology, [facility] [address] [place] [address] Jonathon Smith MD [address] [place] [address] 05/24/2023 11:00 AM EDT Cardiac Studies Cardiac Studies, [facility] [address] [place] [address] 05/24/2023 3:00 PM EDT Office Visit Hematology/Oncology [facility] [address] [place] [address] Fatimah Quintero CRNP [address] [place] [address] 12/24/2023 1:00 PM EDT Imaging Radiology [address], [place] [address] [place] [address] Scheduled Procedures Name Priority Associated Diagnoses Date/Ti [...] 09/20/2020 LUNG CANCER SCREENING - USE SMARTSET 25554 Completed 03/23/2022, 09/16/2021, 09/16/2020, Additional history exists [...] A1c goal of less than 7.0% (HCC) Type 2 diabetes mellitus with diabetic neuropathy, unspecified (HCC) documented in this encounter Care Teams Informatics Scientist Relationship Specialty Start Date End Date Raven Agrawal MD [address] [place] [address] PCP - General Internal Medicine 12/27/17 documented as of this encounter
--- OUTSIDE RECORDS SUMMARY | 2023-05-29 12:42 | External Medical Summary | Summary of Care ---
Author Name Unknown Organization [facility] Address [address] [place] [facility] [facility] [place] [address] Phone [phone] Care Team Providers Care Technology Program Manager Name Role Phone Raven Agrawal MD Primary Care Provider [phone] Reason for Visit * Reason Onset Date Comments Test Results 01/19/2023 Encounter Details Date Type Department Care Team (Late st Contact Info) Description 01/19/2023 Telephone General Internal Medicine [facility] [place] 200 [facility] [place] [address] Raven Agrawal MD 200 [facility] [place] [address] Test Results Allergies No known active allergiesdocumented as of this encounter (statuses as of 02/08/2023) Medications Medication Sig Dispensed Refills Start Date [...] goal of less than 7.0% ([facility]),LVH (left ventricular hypertrophy) due to hypertensive disease, without heart failure,HTN, goal below 130/80 TAKE 1 TABLET BY MOUTH ONCE DAILY 90 Tablet 1 3 Active Gabapentin 600 MG Oral Tablet (Neurontin)Indica tions:Type 2 diabetes mellitus with diabetic neuropathy, without long-term current use of insulin ([facility]) TAKE 1 TABLET IN MORNING, 1.5 TABLET AT NOON AND 1.5 TABLET BEFORE BEDTIME 360 Tablet 1 3 Active DULoxetine HCl 60 MG Oral Capsule Delayed Release Particles (Cymbalta)Indicat ions:Major depressive disorder with single episode, in remission ([facility]),Type 2 diabetes mellitus with diabetic neuropathy, without long-term current use of insulin ([facility]),Cervical spinal stenosis,Cervical spondylosis TAKE 1 [...] as of this encounter (statuses as of 02/08/2023) Active Problems Problem Noted Date Diagnosed Date Type 2 diabetes mellitus wit h diabetic neuropathy, without long-term current use of insulin 10/06/2022 Mixed dyslipidemia 10/06/2022 COPD, group B, by GOLD 2017 classification 06/08 Overview: Per COPD GOLD Classification Granulomatous lung disease 06/27/2021 Dense breast tissue on mammogram 01/06/2019 Overview: 01/17; Tobacco use disorder 06/09/2018 Elevated hemoglobin 04/04/2018 Overview: 04/1926-PxWfsa-bhn EPO, ferritin,Tsat, neg JAK2 mutn LVH (left ventricular hypert rophy) due to hypertensive disease, without heart failure 12/27/2017 Overview: 06/1737-stqb-hi38%, no WMabn,mild A Scl,gr 2 DD HTN, [...] as of this encounter (statuses as of 02/08/2023) Resolved Problems Problem Noted Date Diagnosed Date [...] is a participant in the [facility] (Consortium of Rheumatology Researchers of [facility]) national data collection study. For further information please call Dr Alban Del Real or Tata Meeks, RN, CCRC at [phone] [facility] RESEARCH OTHER*[id number] 04/12/2003 08/26/2009 Overview: Renamed Per Clinical Trials Billing Project. Pt is a participant in the [employer] (Consortium of Rheumatology Researchers [place]) national data collection study. For further information please call Dr Alban Del Real or Tata Meeks, RN, CCRC at [phone] ABN CERVIX NEC-ANTEPART 11/24/200205/31 Elderly multigravida with an tepartum condition or complication 10/10/2002 06/22/2017 Arthritis, rheumatoid 2017 DIABETES-ANTEPARTUM 06/23/19 18 documented as of this encounter (statuses as of 02/08/2023) Immunizations Name Administration Dates Next Due COVID-19 [...] (Menactra) 03/13/2018 Pneumococcal Conjugate Vacci ne, 20-valent ([id number]) 04/06/2022 Pneumococcal Polysaccharide PPV23 (Pneumovax) 03/16/2005 SARS-COV-2 (COVID-19) Vaccine Unspecified 2021 SEASONAL INFLUENZA, [...] Telephone Encounter - Marshall Newman LPN - 02/08/2023 11:52 AM EST Left message for patient to return call. Letter Sent * Telephone Encounter - Prudence Pal LPN - 02/01/2023 11:52 AM EST Called pt and left a vm message to call the office regarding lab results. See note below * Telephone Encounter - Marshall Newman LPN - 01/19/2023 11:49 AM EST Left message for patient to return call. * Telephone Encounter - Marshall Newman LPN - 01/19/2023 11:47 AM EST ----- Message from Raven Agrawal MD sent at 01/17/2023 10:13 PM EST ----- PFT showing evidence of apparent restriction, spirometry unchanged after bronchodilator administration. -Please check on status of pulmonology appointment, referred end of October -jose 6 minute walk test prior. documented in this encounter Plan of Treatment Upcoming Encounters Date Type Department Care Team (Late st Contact Info) Description 04/14/2023 5:20 PM EST Office Visit General Internal Medicine [facility] [address] [place] [address] Raven Agrawal MD [address] [place] [address] 04/21/2023 4:00 PM EST Office Visit Cardiology, [facility] [address] [place] [address] [address] Jonathon Smith MD [address] [place] [address] 05/24/2023 11:00 AM EDT Cardiac Studies Cardiac Studies, [facility] 132 [facility] [place] [address] 05/24/2023 3:00 PM EDT Office Visit Hematology/Oncology [facility] [address] [place] [address] Fatimah Quintero CRNP 400 [facility] [place] [address] 12/24/2023 1:00 PM EDT Imaging [facility] [address] [facility] [place] [address] Scheduled Procedures Name Priority Associated Diagnoses Date/Ti [...] 09/20/2020 LUNG CANCER SCREENING - USE SMARTSET 69154 Completed 03/23/2022, 09/16/2021, 09/16/2020, Additional history exists Pneumococcal Vaccine: Pediatrics (0 to 5 Years) and At-Risk Patients (6 to 64 Years) Completed 04/06/2022, 03/16/2005 GARDASIL-HPV IMMUNIZATION SERIES Aged Out No longer eligible based on patient's age to complete this topic documented as of this encounter Medical Devices Not on filedocumented as of this encounter Care Teams Technology Program Manager Relationship Specialty Start Date End Date Raven Agrawal MD 200 [place] [address] PCP - General Internal Medicine 12/27/17 documented as of this encounter
--- OUTSIDE RECORDS SUMMARY | 2023-05-29 12:42 | External Medical Summary | Summary of Care ---
Author Name Unknown Organization [facility] Address [address] [facility] [place] [address] Phone [phone] Care Team Providers Care Manager Assembly Name Role Phone Raven Agrawal MD Primary Care Provider [phone] Reason for Visit * Reason Onset Date Comments Test Results 01/19/2023 Encounter Details Date Type Department Care Team (Late st Contact Info) Description 01/19/2023 Telephone General Internal Medicine [facility] [place] [address] [facility] [place] [address] Raven Agrawal MD 200 [facility] [place] [address] Test Results Allergies No known active allergiesdocumented [...] of less than 7.0% ([facility]),LVH (left ventricular hypertrophy) due to hypertensive disease, without heart failure,HTN, goal below 130/80 TAKE 1 TABLET BY MOUTH ONCE DAILY 90 Tablet 1 3 Active Gabapentin 600 MG Oral Tablet (Neurontin)Indica tions:Type 2 diabetes mellitus with diabetic neuropathy, without long-term current use of insulin ([facility]) TAKE 1 TABLET IN MORNING, 1.5 TABLET AT NOON AND 1.5 TABLET BEFORE BEDTIME 360 Tablet 1 3 Active DULoxetine HCl 60 MG Oral Capsule Delayed Release Particles (Cymbalta)Indicat ions:Major depressive disorder with single episode, in remission ([facility]),Type 2 diabetes mellitus with diabetic neuropathy, without long-term current use of insulin ([facility]),Cervical spinal stenosis,Cervical spondylosis TAKE 1 CAPSULE [...] use disorder 06/09/2018 Elevated hemoglobin 04/04/2018 Overview: 04/1952-UeNnzk-fnp EPO, ferritin,Tsat, neg JAK2 mutn LVH (left ventricular hypert rophy) due to hypertensive disease, without heart failure 12/27/2017 Overview: 06/1711-webv-ch16%, no WMabn,mild A Scl,gr 2 DD HTN, [...] is a participant in the [facility] (Consortium of Rheumatology Researchers of [facility]) national data collection study. For further information please call Dr Alban Del Real or Tata Meeks, RN, CCRC at [phone] [facility] RESEARCH OTHER*[id number] 04/12/2003 08/26/2009 Overview: Renamed Per Clinical Trials Billing Project. Pt is a participant in the [employer] (Consortium of Rheumatology Researchers of [place]) national data collection study. For further information please call Dr Alban Del Real or Tata Meeks, RN, CCRC at [phone] ABN CERVIX NEC-ANTEPART 11/24/200205/31 Elderly multigravida with [...] (Menactra) 03/13/2018 Pneumococcal Conjugate Vacci ne, 20-valent ([id number]) 04/06/2022 Pneumococcal Polysaccharide PPV23 (Pneumovax) 03/16/2005 SARS-COV-2 [...] encounter Miscellaneous Notes * Telephone Encounter - Raven Agrawal MD - 02/08/2023 4:05 PM EST Please send her my [employer] message and route to scheduling pool to contact her reg scheduling pulm appt. * Telephone Encounter - Marshall Newman LPN [...] of pulmonology appointment, referred end of October -jsoe 6 minute walk test prior. documented in this encounter Plan of Treatment Upcoming Encounters Date Type Department Care Team (Late st Contact Info) Description 04/14/2023 5:20 PM EST Office Visit General Internal Medicine [place] [address] [place], [place] [address] Raven Agrawal MD 200 [facility] [place] [address] 04/21/2023 4:00 PM EST Office Visit Cardiology, [facility] [address] [place] [id number] Jonathon Smith MD [address] [facility] [place] [id number] 05/24/2023 11:00 AM EDT Cardiac Studies Cardiac Studies, [facility] [address] [place] [id number] 05/24/2023 3:00 PM EDT Office Visit Hematology/Oncology [facility] [address] [place] [address] Fatimah Quintero CRNP [address] [facility] [place] [address] 12/24/2023 1:00 PM EDT Imaging Radiology [facility] [address] Scheduled Procedures Name Priority Associated Diagnoses Date/Ti me COLONOSCOPY FLEXIBLE PROXIMA L DIAGNOSTIC Recall Screening for malignant neoplasm of colon Health Maintenance Due Date Last Done Comments HPV/Co-Test 1996 Cologuard 09/13/2011 Fecal Occult Blood Test 09/13/2011 Sigmoidoscopy 09/13/2011 DISCUSS TOBACCO CESSATION (REFER TO SMARTSET #8192) 06/27/2022 06/27/2021, 06/13/2020 COVID-19 Vaccine ( season) [...] 09/20/2020 LUNG CANCER SCREENING - USE SMARTSET 57904 Completed 03/23/2022, 09/16/2021, 09/16/2020, Additional history exists Pneumococcal Vaccine: Pediatrics (0 to 5 Years) and At-Risk Patients (6 to 64 Years) Completed 04/06/2022, 03/16/2005 GARDASIL-HPV IMMUNIZATION SERIES Aged Out No longer eligible based on patient's age to complete this topic documented as of this encounter Medical Devices Not on filedocumented as of this encounter Care Teams Manager Assembly Relationship Specialty Start Date End Date Raven Agrawal MD [address] [facility] [place] [address] PCP - General Internal Medicine 12/27/17 documented as of this encounter
--- OUTSIDE RECORDS SUMMARY | 2023-05-29 12:42 | External Medical Summary | Summary of Care ---
Author Name Unknown Organization [facility] Address [address] [place] [facility] [place] [address] Phone [phone] Care Team Providers Care Press Reader Name Role Phone Raven Agrawal MD Primary Care Provider [phone] Reason for Visit * Reason Onset Date Comments Advice 02/16/2023 Encounter Details Date Type Department Care Team (Late st Contact Info) Description 02/16/2023 Telephone General Internal Medicine [facility] [place] [address] [facility] [place] [address] Raven Agrawal MD 200 [facility] [place] [address] Advice Allergies No known active allergiesdocumented as of this encounter (statuses as of 02/17/2023) Medications Medication Sig Dispensed Refills Start Date [...] less than 7.0% ([facility]),LVH (left ventricular hypertrophy) due to hypertensive disease, without heart failure,HTN, goal below 130/80 TAKE 1 TABLET BY MOUTH ONCE DAILY 90 Tablet 1 09/15/2022 Active Gabapentin 600 MG Oral Tablet (Neurontin)Indicatio ns:Type 2 diabetes mellitus with diabetic neuropathy, without long-term current use of insulin ([facility]) TAKE 1 TABLET IN MORNING, 1.5 TABLET AT NOON AND 1.5 TABLET BEFORE BEDTIME 360 Tablet 1 10/06/2022 Active DULoxetine HCl 60 MG Oral Capsule Delayed Release Particles (Cymbalta)Indication s:Major depressive disorder with single episode, in remission ([facility]),Type 2 diabetes mellitus with diabetic neuropathy, without long-term current use of insulin ([facility]),Cervical spinal stenosis,Cervical spondylosis TAKE 1 CAPSULE BY [...] use of insulin ([facility]),Mixed dyslipidemia TAKE 1 TABLET BY MOUTH EVERY DAY 90 Tablet 2 12/23/2022 Active Janumet XR 50-1000 MG Oral Tablet Extended Release 24 Hour (SITagliptin-metFORM IN HCl ER)Indications:Type 2 diabetes mellitus with hemoglobin A1c goal of less than 7.0% ([facility]),Type 2 diabetes mellitus with diabetic neuropathy, unspecified ([facility]) TAKE 1 TABLET BY MOUTH TWICE A DAY 180 Tablet 3 02/04/2023 Active Nirmatrelvir&Ritonav ir 300/100 20 x 150 MG & 10 x 100MG Oral Tablet Therapy Pack (Paxlovid)Indication s:COVID-19 virus infection,COPD, group B, by GOLD 2017 classification ([facility]) Take 2 pink tablets of Nirmatrelvir and [...] as of this encounter (statuses as of 02/17/2023) Active Problems Problem Noted Date Diagnosed Date Type 2 diabetes mellitus wit h diabetic neuropathy, without long-term current use of insulin 10/06/2022 Mixed dyslipidemia 10/06/2022 COPD, group B, by GOLD 2017 classification 06/08 Overview: Per COPD GOLD Classification Granulomatous lung disease 06/27/2021 Dense breast tissue on mammogram 01/06/2019 Overview: 01/17; Tobacco use disorder 06/09/2018 Elevated hemoglobin 04/04/2018 Overview: 04/1900-OmQpzh-kul EPO, ferritin,Tsat, neg JAK2 mutn LVH (left ventricular hypert rophy) due to hypertensive disease, without heart failure 12/27/2017 Overview: 06/1712-vqvc-wc19%, no WMabn,mild A Scl,gr 2 DD HTN, [...] as of this encounter (statuses as of 02/17/2023) Resolved Problems Problem Noted Date Diagnosed Date [...] Pt is a participant in the [facility] (Consortium of Rheumatology Researchers of [place]) national data collection study. For further information please call Dr Alban Del Real or Tata Meeks, RN, CCRC at [phone] [facility] RESEARCH OTHER*[id number] 04/12/2003 08/26/2009 Overview: Renamed Per Clinical Trials Billing Project. Pt is a participant in the [facility] (Consortium of Rheumatology Researchers of [place]) national data collection study. For further information please call Dr Alban Del Real or Tata Meeks, RN, CCRC at [phone] ABN CERVIX NEC-ANTEPART 11/24/200205/31 Elderly multigravida with an tepartum condition or complication 10/10/2002 06/22/2017 Arthritis, rheumatoid 2017 DIABETES-ANTEPARTUM 06/23/19 18 documented as of this encounter (statuses as of 02/17/2023) Immunizations Name Administration Dates Next Due COVID-19 [...] (Menactra) 03/13/2018 Pneumococcal Conjugate Vacci ne, 20-valent ([id number]) 04/06/2022 SARS-COV-2 (COVID-19) Vaccine Unspecified 2021 Seasonal [...] encounter Miscellaneous Notes * Telephone Encounter - Sana Cox LPN [...] PM EST Office Visit General Internal Medicine [facility] [address] [place] [address] Raven Agrawal MD [address] [facility] [place] [address] 04/21/2023 4:00 PM EST Office Visit Cardiology, [facility] [address] [place] [address] Jonathon Smith MD [address] [place] [address] 05/05/2023 1:40 PM EST Office Visit Pulmonary Medicine, [facility] [place] [address] [facility] Gtz [facility] [address] [facility] [address] 05/24/2023 11:00 AM EDT Cardiac Studies Cardiac Studies, [facility] 132 [facility] [place] [address] 05/24/2023 3:00 PM EDT Office Visit [facility]ematology[facility] [address] Fatimah Quintero CRNP 400 [facility] [place] [address] 12/24/2023 1:00 PM EDT Imaging Radiology [facility] [facility] 132 [facility] [place] [address] Scheduled Procedures Name Priority Associated Diagnoses Date/Ti me COLONOSCOPY FLEXIBLE PROXIMA L DIAGNOSTIC Recall Screening for malignant neoplasm of colon Health Maintenance Due Date Last Done Comments HPV/Co-Test 1996 Cologuard 09/13/2011 Fecal Occult Blood Test 09/13/2011 Sigmoidoscopy 09/13/2011 DISCUSS TOBACCO CESSATION (REFER TO SMARTSET #9851) 06/27/2022 06/27/2021, 06/13/2020 COVID-19 Vaccine ( season) [...] 09/20/2020 LUNG CANCER SCREENING - USE SMARTSET 71432 Completed 03/23/2022, 09/16/2021, 09/16/2020, Additional history exists [...] (HCC) documented in this encounter Care Teams Press Reader Relationship Specialty Start Date End Date Raven Agrawal MD 200 [place] [address] PCP - General Internal Medicine 12/27/17 documented as of this encounter
--- OUTSIDE RECORDS SUMMARY | 2023-05-29 12:42 | External Medical Summary | Summary of Care ---
Author Name Unknown Organization [facility] Address [address] [place] [facility] [place] [address] Phone [phone] Care Team Providers Care Demolitionist Name Role Phone Raven Agrawal MD Primary Care Provider [phone] Reason for Visit * Reason Onset Date Comments Test Results 01/19/2023 Encounter Details Date Type Department Care Team (Late st Contact Info) Description 01/19/2023 Telephone General Internal Medicine [facility] [place] [address] [facility] [place] [address] Raven Agrawal MD 200 [facility] [place] [address] Test Results Allergies No known active allergiesdocumented as of this encounter (statuses as of 01/19/2023) Medications Medication Sig Dispensed Refills Start Date [...] rsistent insomnia at bedtime 0 10/02/2019 Active Ipratropium-Albute rol 0.5-2.5 (3) MG/3ML Inhalation [...] EVERY DAY 90 Tablet 4 07/24/2022 Active Janumet XR 50-1000 MG Oral Tablet Extended Release 24 Hour (SITagliptin-metFO RMIN HCl ER)Indications:Typ e 2 diabetes mellitus with hemoglobin A1c goal of less than 7.0% (HCC),Type 2 diabetes mellitus with diabetic neuropathy, unspecified (HCC) TAKE 1 TABLET BY MOUTH TWICE A DAY 180 Tablet 1 08/13/2022 Active Lisinopril 10 MG Oral Tablet (Prinivil)Indicati ons:Type 2 diabetes mellitus with hemoglobin A1c goal of less than 7.0% (HCC),LVH (left ventricular hypertrophy) due to hypertensive disease, without heart failure,HTN, goal below 130/80 TAKE 1 TABLET BY MOUTH ONCE DAILY 90 Tablet 1 09/15/2022 Active Gabapentin 600 MG Oral Tablet (Neurontin)Indicat [...] THE MORNING 90 Capsule 1 11/03/2022 Active Fluticasone-Umecli din-Vilant 100-62.5-25 MCG/ACT Aerosol Powder Breath Activated (Trelegy Ellipta)Indication s:Hospital discharge follow-up,COPD exacerbation (HCC),Rhinovirus infection,COPD, moderate (HCC) Inhale 1 Puff by mouth in the morning. Start 11/27/2022 and stop symbicort (cancel Rx anoro ellipta). 60 Blister Dosing Unit 5 11/27/2022 Active Varenicline Tartrate 1 MG Oral TabletIndications: [...] EVERY DAY 90 Tablet 2 12/23/2022 Active Hospital, Clinic, or Other Facility Administered [...] as of this encounter (statuses as of 01/19/2023) Active Problems Problem Noted Date Diagnosed Date Type 2 diabetes mellitus wit h diabetic neuropathy, without long-term current use of insulin 10/06/2022 Mixed dyslipidemia 10/06/2022 COPD, group B, by GOLD 2017 classification 06/08 Overview: Per COPD GOLD Classification Granulomatous lung disease 06/27/2021 Dense breast tissue on mammogram 01/06/2019 Overview: 01/17; Tobacco use disorder 06/09/2018 Elevated hemoglobin 04/04/2018 Overview: 04/1905-DiEiur-rcf EPO, ferritin,Tsat, neg JAK2 mutn LVH (left ventricular hypert rophy) due to hypertensive disease, without heart failure 12/27/2017 Overview: 06/1722-oaah-xm55%, no WMabn,mild A Scl,gr 2 DD HTN, [...] as of this encounter (statuses as of 01/19/2023) Resolved Problems Problem Noted Date Diagnosed Date [...] further information please call Dr Alban Del eRal or Tata Meeks, RN, CCRC at [phone] [facility] RESEARCH OTHER*[id number] 04/12/2003 08/26/2009 Overview: Renamed Per Clinical Trials Billing Project. Pt is a participant in the [employer] (Consortium of Rheumatology Researchers of [place]) national data collection study. For further information please call Dr Alban Del Real or Tata Meeks, RN, CCRC at [phone] ABN CERVIX NEC-ANTEPART 11/24/200205/31 Elderly multigravida with an tepartum condition or complication 10/10/2002 06/22/2017 Arthritis, rheumatoid 2017 DIABETES-ANTEPARTUM 06/23/19 18 documented as of this encounter (statuses as of 01/19/2023) Immunizations Name Administration Dates Next Due COVID-19 [...] (Menactra) 03/13/2018 Pneumococcal Conjugate Vacci ne, 20-valent ([id number]) 04/06/2022 SARS-COV-2 (COVID-19) Vaccine Unspecified 2021 SEASONAL [...] PM EST Office Visit General Internal Medicine [address] [place] [address] Raven Agrawal MD [address] [place] [address] [place] [address] 04/21/2023 4:00 PM EST Office Visit Cardiology, [facility] [address] [place] [address] Jonathon Smith MD [address] [place] [address] 05/24/2023 11:00 AM EDT Cardiac Studies Cardiac Studies, [facility] 132 [facility] [place] [address] 05/24/2023 3:00 PM EDT Office Visit Hematology/Oncology [facility] [address] [facility] [place] [address] Fatimah Quintero CRNP [address] [place] [address] [place] [address] 12/24/2023 1:00 PM EDT Imaging Radiology [address] [facility] [place] [address] Scheduled Procedures Name Priority Associated Diagnoses Date/Ti me COLONOSCOPY FLEXIBLE PROXIMA L DIAGNOSTIC Recall Screening for malignant neoplasm of colon Health Maintenance Due Date Last Done Comments HPV/Co-Test 1996 Cologuard 09/13/2011 Fecal Occult Blood Test 09/13/2011 Sigmoidoscopy 09/13/2011 DISCUSS TOBACCO CESSATION (REFER TO SMARTSET #5048) 06/27/2022 06/27/2021, 06/13/2020 COVID-19 Vaccine ( season) [...] 09/20/2020 LUNG CANCER SCREENING - USE SMARTSET [id number] Completed 03/23/2022, 09/16/2021, 09/16/2020, Additional history exists Pneumococcal Vaccine: Pediatrics (0 to 5 Years) and At-Risk Patients (6 to 64 Years) Completed 04/06/2022, 03/16/2005 GARDASIL-HPV IMMUNIZATION SERIES Aged Out No longer eligible based on patient's age to complete this topic documented as of this encounter Medical Devices Not on filedocumented as of this encounter Care Teams Demolitionist Relationship Specialty Start Date End Date Raven Agrawal MD [address] [place] [address] PCP - General Internal Medicine 12/27/17 documented as of this encounter
--- OUTSIDE RECORDS SUMMARY | 2023-05-29 12:42 | External Medical Summary | Summary of Care ---
Author Name Unknown Organization [facility] Address [address] [facility] [place] [address] Phone [phone] Care Team Providers Care Chocolate Temperer Name Role Phone Raven Agrawal MD Primary Care Provider [phone] Reason for Visit * Reason Comments Pulmonary Function Test PFT with broncho dilator Oxygen Assessment 6 minute walk Encounter Details Date Type Department Care Team (Latest Contact Info) Description 01/06/2023 10:30 AM EST PulmDiagnostic Pulmonary Function Lab, [facility] [address] [facility] [place] [address] [address], [address] [facility] [place] [address] COPD, moderate (HCC)*; Tobacco use disorder Allergies No known active allergiesdocumented as of this encounter (statuses as of 01/18/2023) Medications Medication Sig Dispensed Refills Start Date [...] (3) MG/3ML Inhalation Solution (Duoneb)Indication s:COPD exacerbation ([facility]),Bronchitis, complicated Inhale 3 mL via nebulizer every [...] than 7.0% ([facility]),Type 2 diabetes mellitus with diabetic neuropathy, unspecified ([facility]) TAKE 1 TABLET BY MOUTH TWICE A DAY 180 Tablet 1 08/13/2022 Active Lisinopril 10 MG Oral Tablet (Prinivil)Indicati ons:Type 2 diabetes mellitus with hemoglobin A1c goal of less than 7.0% ([facility]),LVH (left ventricular hypertrophy) due to hypertensive disease, without heart failure,HTN, goal below 130/80 TAKE 1 TABLET BY MOUTH ONCE DAILY 90 Tablet 1 09/15/2022 Active Gabapentin 600 MG Oral Tablet (Neurontin)Indicat ions:Type 2 diabetes mellitus with diabetic neuropathy, without long-term current use of insulin ([facility]) TAKE 1 TABLET IN MORNING, 1.5 [...] as of this encounter (statuses as of 01/18/2023) Active Problems Problem Noted Date Diagnosed Date Type 2 diabetes mellitus wit h diabetic neuropathy, without long-term current use of insulin 10/06/2022 Mixed dyslipidemia 10/06/2022 COPD, group B, by GOLD 2017 classification 06/08 Overview: Per COPD GOLD Classification Granulomatous lung disease 06/27/2021 Dense breast tissue on mammogram 01/06/2019 Overview: 01/17; Tobacco use disorder 06/09/2018 Elevated hemoglobin 04/04/2018 Overview: 04/1969-UwYbei-jkq EPO, ferritin,Tsat, neg JAK2 mutn LVH (left ventricular hypert rophy) due to hypertensive disease, without heart failure 12/27/2017 Overview: 06/1730-tdvc-tp00%, no WMabn,mild A Scl,gr 2 DD HTN, [...] as of this encounter (statuses as of 01/18/2023) Resolved Problems Problem Noted Date Diagnosed Date [...] Project. Pt is a participant in the [facility] (Consortium of Rheumat[employer] Researchers of [place]) national data collection study. For further information please call Dr Alban Del Real or Tata Meeks, RN, CCRC at [phone] [facility] RESEARCH OTHER*[id number] 04/12/2003 08/26/2009 Overview: Renamed Per Clinical Trials Billing Project. Pt is a participant in the [facility] (Consortium of Rhe[employer] Researchers [employer] [place]) national data collection study. 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 10/10/2002 06/22/2017 Arthritis, rheumatoid 2017 DIABETES-ANTEPARTUM 06/23/19 18 documented as of this encounter (statuses as of 01/18/2023) Immunizations Name Administration Dates Next Due COVID-19 [...] (Menactra) 03/13/2018 Pneumococcal Conjugate Vacci ne, 20-valent ([id number]) 04/06/2022 Pneumococcal Polysaccharide PPV23 (Pneumovax) 03/16/2005 SARS-COV-2 [...] Day Cigarettes 1 36 Smokeless Tobacco: Never Tobacco Cessation:Ready to Q uit: Not Asked; Counseling Given: Not Answered Comments:06/29/22 currently smoking 1 ppd Alcohol Use [...] Sign Reading Time Taken Comments Blood Pressure 124/6 01/06/2023 11:00 AM EST Pulse 75 01/06/2023 11:00 AM EST Temperature 35.7 C (96.3 F) 01/06/2023 11:[address] Respiratory Rate 16 01/06/2023 11:00 AM EST Oxygen Saturation 94% 01/06/2023 11:00 AM EST Inhaled Oxygen Concentration - - Weight 71.9 kg (158 lb 8.2 oz) 01/06/2023 11:00 AM EST Height 160.5 cm (5' 3.19") 01/06/2023 11:[address] Body Mass Index 27.91 01/06/2023 11:00 AM EST documented in this encounter Nursing Notes * Jorge Coates RRT - 01/06/2023 11:02 AM EST Aura Hardy was identified by name, Date of : (1965), and . Vitals were obtained for testing. Body mass index is 27.91 kg/m. Pt has a 1 ppd for 36 years smoking history and still currently smokes. Pt wears CPAP@ HS. 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 Spirometry, DLCO, RAW, and TGV performed. A slow volume nebulizer treatment of 0.5ml of albuterol in 3 ml of NSS was given. The proper method of use, as well as anticipated side effects, of this svn are discussed and demonstrated to the patient. Patient demonstrates adequate delivery. Exercise oximetry performed on room air x 6 minutes. Pt ambulated 1125 feet/ 343 meters. No rest periods were required. Lowest SPO2 on room air was 92 %. Administrations This Visit Albuterol Sulfate (Proventil) (2.5 MG/3ML) 0.083% inhalation solution 2.5 mg Admin Date 01/06/2023 Action Given Dose 2.5 mg Route Nebulizer Documented By Jorge Coates RRT documented in this encounter Miscellaneous Notes * Result Encounter Note - Any Caceres OSA - 01/18/2023 3:18 PM EST Lmom 01/18 for only pulm scheduling * Result Encounter Note - Raven Agrawal MD - 01/17/2023 10:13 PM EST PFT showing evidence of apparent restriction, spirometry unchanged after bronchodilator administration. -Please check on status of pulmonology appointment, referred end of October -jose 6 minute walk test prior. documented in this encounter Plan of Treatment Upcoming Encounters Date Type Department Care Team (Late st Contact Info) Description 04/14/2023 5:20 PM EST Office Visit General Internal Medicine [facility] [address] [facility] [place] [address] Raven Agrawal MD [address] [place] [address] [place] [address] 04/21/2023 4:00 PM EST Office Visit Cardiology, [facility] [address] [facility] [place] [address] Jonathon Smith MD [address] [place] [address] 05/24/2023 11:00 AM EDT Cardiac Studies Cardiac Studies, [facility] [address] [facility] [place] [address] 05/24/2023 3:00 PM EDT Office Visit Hematology/Oncology [facility] [address] [facility] [place] [address] Fatimah Quintero CRNP [address] [place] [address] [place] Link [id number] 12/24/2023 1:00 PM EDT Imaging Radiology [address] [facility] [place] [address] Scheduled Procedures Name Priority Associated Diagnoses Date/Ti me COLONOSCOPY FLEXIBLE PROXIMA L DIAGNOSTIC Recall Screening for malignant neoplasm of colon Health Maintenance Due Date Last Done Comments HPV/Co-Test 1996 Cologuard 09/13/2011 Fecal Occult Blood Test 09/13/2011 Sigmoidoscopy 09/13/2011 DISCUSS TOBACCO CESSATION (REFER TO SMARTSET #9514) 06/27/2022 06/27/2021, 06/13/2020 COVID-19 Vaccine ( season) [...] 09/20/2020 LUNG CANCER SCREENING - USE SMARTSET 74363 Completed 03/23/2022, 09/16/2021, 09/16/2020, Additional history exists Pneumococcal Vaccine: Pediatrics (0 to 5 Years) and At-Risk Patients (6 to 64 Years) Completed 04/06/2022, 03/16/2005 GARDASIL-HPV IMMUNIZATION SERIES Aged Out No longer eligible based on patient's age to complete this topic documented as of this encounter Medical Devices Not on filedocumented as of this encounter Procedures Procedure Name Priority Date/Time Associated Diagnosis Comments DIFFUSION CAPACITY (DLCO) Routine 01/06/2023 10:38 AM EST COPD, moderate (HCC) LUNG VOLUMES (PLETHYSMOGRAPHY) Routine 01/06/2023 10:38 AM EST COPD, moderate (HCC) SPIROMETRY B/A BRONCHODILATOR Routine 01/06/2023 10:38 AM EST COPD, moderate (HCC) documented in this encounter Results * DIFFUSION CAPACITY (DLCO) (01/06/2023 10:38 AM EST) DLCO Uncorrect Actual Pre 14.30 ml/min/mmH g [facility] DLCO Uncorrect Actual Pre %Predict 72 % [facility] 01/06/2023 10:3 8 AM EST Narrative [facility] - 01/06/2023 10:38 AM EST Patient was able to ambulate 343 m during a 6 minute walk test while breathing room air. Minimal oxygen saturation was 92%. Spirometry revealed evidence of apparent restriction. There was no significant change in spirometry measured following bronchodilator administration. Total lung capacity was at the lower limit of normal. The RV to TLC ratio was increased, a nonspecific finding that could be due to air trapping. Diffusion capacity that was not corrected for hemoglobin concentration was mildly reduced. When compared with testing that was last performed on March 12, 2022, FVC has increased in significantly by 0.13 L, and FEV1 is decreased significantly by 0 await L. diffusion capacity decreased in significantly by 1.9 mL/min per mm Hg. Total lung capacity decreased significantly by 0.2. These results do not necessarily support the stated clinical diagnosis of COPD, as airflow obstruction was not clearly demonstrated. Rather, the pattern suggests apparent restriction.This interpretation has been electronically signed: JHONATAN SHAH MD 01/15/2023 05:46:19 PM Raven Agrawal MD [facility]ICINE [facility] * LUNG VOLUMES (PLETHYSMOGRAPHY) (01/06/2023 10:38 AM EST) SVC Actual Pre 1.79 L [facility] SVC Actual Pre %Predict 56 % [facility] IC Actual Pre 1.45 L [facility] IC Actual Pre %Predict 66 % [facility] ERV Actual Pre 0.27 L [facility] ERV Actual Pre %Predict 26 % [facility] TGV Actual Pre 2.48 L [facility] TGV Actual Pre %Predict 89 % [facility] RV (Pleth) Actual Pre 2.13 L [facility] RV (Pleth) Actual Pre %Predict 114 % [facility] TLC(Pleth) Actual Pre 3.92 L [facility] TLC (Pleth) Actual Pre %Predict 79 % [facility] RV/TLC (Pleth) Actual Pre 54 % [facility] 01/06/2023 10:3 8 AM EST Narrative [facility] - 01/06/2023 10:38 AM EST Patient was able to ambulate 343 m during a 6 minute walk test while breathing room air. Minimal oxygen saturation was 92%. Spirometry revealed evidence of apparent restriction. There was no significant change in spirometry measured following bronchodilator administration. Total lung capacity was at the lower limit of normal. The RV to TLC ratio was increased, a nonspecific finding that could be due to air trapping. Diffusion capacity that was not corrected for hemoglobin concentration was mildly reduced. When compared with testing that was last performed on March 12, 2022, FVC has increased in significantly by 0.13 L, and FEV1 is decreased significantly by 0 await L. diffusion capacity decreased in significantly by 1.9 mL/min per mm Hg. Total lung capacity decreased significantly by 0.2. These results do not necessarily support the stated clinical diagnosis of COPD, as airflow obstruction was not clearly demonstrated. Rather, the pattern suggests apparent restriction.This interpretation has been electronically signed: JHONATAN SHAH MD 01/15/2023 05:46:19 PM Raven Agrawal MD MEDICINE [facility] * SPIROMETRY B/A BRONCHODILATOR (01/06/2023 10:38 AM EST) FVC Actual Pre 1.68 L [facility] FVC Actual Pre %Predict 52 % [facility] FVC Actual Post 1.63 L [facility]I [facility] FVC Actual Post %Change -1 % [facility] FEV1 Actual Pre 1.40 L [facility]IG[facility] KOFFI [facility] FEV1 Actual Pre %Predict 55 % [facility] FEV1 Actual Post 1.31 L [facility] FEV1 Actual Post %Change -3 % [facility] FEV1/FVC Actual Pre 83 % [facility] FEV1/FVC Actual Post 80 % [facility] FEF 25-75% Actual Pre 1.42 L/sec [facility] FEF 25-75% Actual Pre %Predict 59 % [facility] FEF 25-75% Actual Post 1.09 L/sec [facility] FEF 25-75% Actual Post %Change -23 % [facility] 01/06/2023 10:3 8 AM EST Narrative [facility] - 01/06/2023 10:38 AM EST Patient was able to ambulate 343 m during a 6 minute walk test while breathing room air. Minimal oxygen saturation was 92%. Spirometry revealed evidence of apparent restriction. There was no significant change in spirometry measured following bronchodilator administration. Total lung capacity was at the lower limit of normal. The RV to TLC ratio was increased, a nonspecific finding that could be due to air trapping. Diffusion capacity that was not corrected for hemoglobin concentration was mildly reduced. When compared with testing that was last performed on March 12, 2022, FVC has increased in significantly by 0.13 L, and FEV1 is decreased significantly by 0 await L. diffusion capacity decreased in significantly by 1.9 mL/min per mm Hg. Total lung capacity decreased significantly by 0.2. These results do not necessarily support the stated clinical diagnosis of COPD, as airflow obstruction was not clearly demonstrated. Rather, the pattern suggests apparent restriction.This interpretation has been electronically signed: JHONATAN SHAH MD 01/15/2023 05:46:19 PM Raven Agrawal MD MEDICINE [facility] documented in this encounter Visit Diagnoses Diagnosis COPD, moderate (HCC)- Primary Chronic airway obstruction, not elsewhere classified Tobacco use disorder documented in this encounter Administered Medications Active Administered Medications - up to 3 most recent administrations Medication Order MAR Action Action Date Dose Rate Site Albuterol Sulfate (Proventil) (2.5 MG/3ML) 0.083% inhalation solution 2.5 mg 2.5 mg, Nebulizer, PRN Other, Starting on Wed12/29/22 at 0853, Until Wed12/29/23 at 0852, For 365 days, Only one type of albuterol product should be administered (Nebulizer or Inhaler). Please select and document on the appropriate albuterol product order. Given 01/06/2023 10:37 AM EST 2.5 mg documented in this encounter Care Teams Chocolate Temperer Relationship Specialty Start Date End Date Raven Agrawal MD [address] [place] [address], [place] [address] PCP - General Internal Medicine 12/27/17 documented as of this encounter
--- OUTSIDE RECORDS SUMMARY | 2023-05-29 12:42 | External Medical Summary | Summary of Care ---
Author Name Unknown Organization [facility] Address [address] [facility] [place] [address] Phone [phone] Care Team Providers Care Production Ski Repairer Name Role Phone Raven Agrawal MD Primary Care Provider Reason for Visit * Reason Comments Pulmonary Function Test PFT with broncho dilator Oxygen Assessment 6 minute walk Encounter Details Date Type Department Care Team (Latest Contact Info) Description 01/06/2023 10:30 AM EST PulmDiagnostic Pulmonary Function Lab, [facility] [address] [facility] [place] [address] [address], [address] [facility] [place] [address] COPD, moderate (HCC)*; Tobacco use disorder Allergies No known active allergiesdocumented as of this encounter (statuses as of 01/27/2023) Medications Medication Sig Dispensed Refills Start Date [...] (3) MG/3ML Inhalation Solution (Duoneb)Indication s:COPD exacerbation ([facility]),Bronchitis, complicated Inhale 3 mL via nebulizer every [...] as of this encounter (statuses as of 01/27/2023) Active Problems Problem Noted Date Diagnosed Date Type 2 diabetes mellitus wit h diabetic neuropathy, without long-term current use of insulin 10/06/2022 Mixed dyslipidemia 10/06/2022 COPD, group B, by GOLD 2017 classification 06/08 Overview: Per COPD GOLD Classification Granulomatous lung disease 06/27/2021 Dense breast tissue on mammogram 01/06/2019 Overview: 01/17; Tobacco use disorder 06/09/2018 Elevated hemoglobin 04/04/2018 Overview: 04/1993-GlZpas-yix EPO, ferritin,Tsat, neg JAK2 mutn LVH (left ventricular hypert rophy) due to hypertensive disease, without heart failure 12/27/2017 Overview: 06/1760-vrkf-gh76%, no WMabn,mild A Scl,gr 2 DD HTN, [...] as of this encounter (statuses as of 01/27/2023) Resolved Problems Problem Noted Date Diagnosed Date [...] Real or Tata Meeks, RN, CCRC at [phone] [facility] RESEARCH OTHER*[id number] 04/12/2003 08/26/2009 Overview: Renamed Per Clinical Trials Billing Project. Pt is a participant in the [facility] (Consortium of Rheumatology Researchers of [place]) national data collection study. For further information please call Dr Alban Del Real or Tata Meeks, RN, CCRC at [phone] ABN CERVIX NEC-ANTEPART 11/24/200205/31 Elderly multigravida with an tepartum condition or complication 10/10/2002 06/22/2017 Arthritis, rheumatoid 2017 DIABETES-ANTEPARTUM 06/23/19 18 documented as of this encounter (statuses as of 01/27/2023) Immunizations Name Administration Dates Next Due COVID-19 [...] (Menactra) 03/13/2018 Pneumococcal Conjugate Vacci ne, 20-valent ([id number]) 04/06/2022 Pneumococcal Polysaccharide PPV23 (Pneumovax) 03/16/2005 SARS-COV-2 [...] Encounter Note - Any Caceres OSA - 01/27/2023 10:01 AM EST My g sent 01/27 * Result Encounter Note - Any Caceres [...] PM EST Office Visit General Internal Medicine [facility] [address] [facility] [place] [address] Raven Agrawal MD [address] [place] [address] [place] [address] 04/21/2023 4:00 PM EST Office Visit Cardiology, [facility] [address] [facility] [place] [address] Jonathon Smith MD [address] [place] [address] 05/24/2023 11:00 AM EDT Cardiac Studies Cardiac Studies, [facility] [address] [place] [address] 05/24/2023 3:00 PM EDT Office Visit Hematology/Oncology [facility] [address] [facility] [place] [address] Fatimah Quintero CRNP [address] [place] [address] [place] [address] 12/24/2023 1:00 PM EDT Imaging Radiology [facility] [address] [facility] [place] [address] [facility] [place] [address] Scheduled Procedures Name Priority Associated Diagnoses Date/Ti [...] 09/20/2020 LUNG CANCER SCREENING - USE SMARTSET 19702 Completed 03/23/2022, 09/16/2021, 09/16/2020, Additional history exists [...] 01/06/2023 10:38 AM EST COPD, moderate (HCC) PULMONARY STRESS TESTING Routine 01/06/2023 COPD, moderate (HCC) Tobacco use disorder documented in this encounter Results * DIFFUSION [...] Raven Agrawal MD MEDICINE [facility] * LUNG VOLUMES (PLETHYSMOGRAPHY) (01/06/2023 10:38 AM [...] [facility] 01/06/2023 10:3 8 AM EST Narrative [facility] - 01/06/2023 10:38 AM EST Patient [...] Raven Agrawal MD MEDICINE [facility] * PULMONARY STRESS TESTING (01/06/2023) 01/06/2023 Raven Agrawal MD MEDICINE documented in this encounter Visit Diagnoses Diagnosis [...] mg documented in this encounter Care Teams Production Ski Repairer Relationship Specialty Start Date End Date Raven Agrawal MD [address] [place] [address] PCP - General Internal Medicine 12/27/17 documented as of this encounter
--- OUTSIDE RECORDS SUMMARY | 2023-05-29 12:42 | External Medical Summary | Summary of Care ---
Author Name Unknown Organization [facility] Address [address] [facility] [place] [address] Phone [phone] Care Team Providers Care Box Toe Cementer Name Role Phone Raven Agrawal MD Primary Care Provider [phone] Reason for Visit * Reason Comments Pulmonary Function Test PFT with broncho dilator Oxygen Assessment 6 minute walk Encounter Details Date Type Department Care Team (Latest Contact Info) Description 01/06/2023 10:30 AM EST PulmDiagnostic Pulmonary Function Lab, Health system [address] [place] [address] [place], [address] 132 [facility] [place] [address] COPD, moderate (HCC)*; Tobacco use disorder Allergies No known active allergiesdocumented as of this encounter (statuses as of 01/06/2023) Medications Medication Sig Dispensed Refills Start Date [...] (3) MG/3ML Inhalation Solution (Duoneb)Indication s:COPD exacerbation ([facility]),Bronchitis, complicated Inhale 3 mL via nebulizer every [...] hemoglobin A1c goal of less than 7.0% ([facility]),Type 2 diabetes mellitus with diabetic neuropathy, unspecified ([facility]) TAKE 1 TABLET BY MOUTH TWICE A DAY 180 Tablet 1 08/13/2022 Active Lisinopril 10 MG Oral Tablet (Prinivil)Indicati ons:Type 2 diabetes mellitus with hemoglobin A1c goal of less than 7.0% ([facility]),LVH (left ventricular hypertrophy) due to hypertensive disease, without heart failure,HTN, goal below 130/80 TAKE 1 TABLET BY MOUTH ONCE DAILY 90 Tablet 1 09/15/2022 Active Gabapentin 600 MG Oral Tablet (Neurontin)Indicat ions:Type 2 diabetes mellitus with diabetic neuropathy, without long-term current use of insulin ([facility]) TAKE 1 TABLET IN MORNING, 1.5 [...] as of this encounter (statuses as of 01/06/2023) Active Problems Problem Noted Date Diagnosed Date Type 2 diabetes mellitus wit h diabetic neuropathy, without long-term current use of insulin 10/06/2022 Mixed dyslipidemia 10/06/2022 COPD, group B, by GOLD 2017 classification 06/08 Overview: Per COPD GOLD Classification Granulomatous lung disease 06/27/2021 Dense breast tissue on mammogram 01/06/2019 Overview: 01/17; Tobacco use disorder 06/09/2018 Elevated hemoglobin 04/04/2018 Overview: 04/1974-CmMdsp-vwx EPO, ferritin,Tsat, neg JAK2 mutn LVH (left ventricular hypert rophy) due to hypertensive disease, without heart failure 12/27/2017 Overview: 06/1789-jtch-wf52%, no WMabn,mild A Scl,gr 2 DD HTN, [...] as of this encounter (statuses as of 01/06/2023) Resolved Problems Problem Noted Date Diagnosed Date [...] [facility] (Consortium of Rheumatology Researchers of [place]) national data collection study. For further information please call Dr Alban Del Real or Tata Meeks, RN, CCRC at [phone] [facility] RESEARCH OTHER*[id number] 04/12/2003 08/26/2009 Overview: Renamed Per Clinical Trials Billing Project. Pt is a participant in the [facility] (Consortium of Rheumatology Researchers of [place]) national data collection study. For further information please call Dr Alban Del Real or Tata Meeks, RN, CCRC at [phone] ABN CERVIX NEC-ANTEPART 11/24/200205/31 Elderly multigravida with an tepartum condition or complication 10/10/2002 06/22/2017 Arthritis, rheumatoid 2017 DIABETES-ANTEPARTUM 06/23/19 18 documented as of this encounter (statuses as of 01/06/2023) Immunizations Name Administration Dates Next Due COVID-19 [...] (Menactra) 03/13/2018 Pneumococcal Conjugate Vacci ne, 20-valent ([id number]) 04/06/2022 SARS-COV-2 (COVID-19) Vaccine Unspecified 2021 SEASONAL [...] Jorge Coates RRT documented in this encounter Plan of Treatment Upcoming Encounters Date Type Department Care Team (Late st Contact Info) Description 04/14/2023 5:20 PM EST Office Visit General Internal Medicine [facility] [place] [address] [place] [address] Raven Agrawal MD [address] [place] [address] 04/21/2023 4:00 PM EST Office Visit Cardiology, Health system 132 [facility] [place] [address] Jonathon Smith MD 132 [place] [address] 05/24/2023 11:00 AM EDT Cardiac Studies Cardiac Studies, Health system [address] [facility] [place] [address] 05/24/2023 3:00 PM EDT Office Visit Hematology/Oncology [facility] 200 [facility] [address] Fatimah Quintero CRNP [address] [place] [address] 12/24/2023 1:00 PM EDT Imaging Radiology [facility] 1st [facility] 132 [facility] [place] [address] Scheduled Procedures Name Priority Associated Diagnoses Date/Ti [...] ASSESSMENT COMPLETED IN PAST YEAR FOR COPD 12/30/2023 12/29/2022 Lipid Panel 10/06/2027 10/05/2022, 020 04/2022, 10/21/2021, [...] 09/20/2020 LUNG CANCER SCREENING - USE SMARTSET 52229 Completed 03/23/2022, 09/16/2021, 09/16/2020, Additional history exists Pneumococcal Vaccine: Pediatrics (0 to 5 Years) and At-Risk Patients (6 to 64 Years) Completed 04/06/2022, 03/16/2005 GARDASIL-HPV IMMUNIZATION SERIES Aged Out No longer eligible based on patient's age to complete this topic documented as of this encounter Medical Devices Not on filedocumented as of this encounter Visit Diagnoses Diagnosis COPD, moderate [...] mg documented in this encounter Care Teams Box Toe Cementer Relationship Specialty Start Date End Date Raven Agrawal MD 200 [place] [address] PCP - General Internal Medicine 12/27/17 documented as of this encounter
--- OUTSIDE RECORDS SUMMARY | 2023-05-29 12:42 | External Medical Summary | Summary of Care ---
Author Name Unknown Organization [facility] Address [address] [facility] [place] [place] [address] Phone [phone] Care Team Providers Care Coordinator Hotels Name Role Phone Raven Agrawal MD Primary Care Provider [phone] Reason for Visit * Reason Onset Date Comments Test Results 01/19/2023 Encounter Details Date Type Department Care Team (Late st Contact Info) Description 01/19/2023 Telephone General Internal Medicine [facility] [place] [place] [address] [facility] [place] [address] Raven Agrawal MD 200 [facility] [place] [address] Test Results Allergies No known active allergiesdocumented as of this encounter (statuses as of 02/09/2023) Medications Medication Sig Dispensed Refills Start Date [...] hemoglobin A1c goal of less than 7.0% ([facility]),LVH (left ventricular hypertrophy) due to hypertensive disease, without heart failure,HTN, goal below 130/80 TAKE 1 TABLET BY MOUTH ONCE DAILY 90 Tablet 1 3 Active Gabapentin 600 MG Oral Tablet (Neurontin)Indica tions:Type 2 diabetes mellitus with diabetic neuropathy, without long-term current use of insulin ([facility]) TAKE 1 TABLET IN MORNING, 1.5 TABLET AT NOON AND 1.5 TABLET BEFORE BEDTIME 360 Tablet 1 3 Active DULoxetine HCl 60 MG Oral Capsule Delayed Release Particles (Cymbalta)Indicat ions:Major depressive disorder with single episode, in remission ([facility]),Type 2 diabetes mellitus with diabetic neuropathy, without long-term current use of insulin ([facility]),Cervical spinal stenosis,Cervical spondylosis TAKE 1 CAPSULE BY [...] as of this encounter (statuses as of 02/09/2023) Active Problems Problem Noted Date Diagnosed Date Type 2 diabetes mellitus wit h diabetic neuropathy, without long-term current use of insulin 10/06/2022 Mixed dyslipidemia 10/06/2022 COPD, group B, by GOLD 2017 classification 06/08 Overview: Per COPD GOLD Classification Granulomatous lung disease 06/27/2021 Dense breast tissue on mammogram 01/06/2019 Overview: 01/17; Tobacco use disorder 06/09/2018 Elevated hemoglobin 04/04/2018 Overview: 04/1960-IgYgyo-idg EPO, ferritin,Tsat, neg JAK2 mutn LVH (left ventricular hypert rophy) due to hypertensive disease, without heart failure 12/27/2017 Overview: 06/1793-gjny-dc27%, no WMabn,mild A Scl,gr 2 DD HTN, [...] as of this encounter (statuses as of 02/09/2023) Resolved Problems Problem Noted Date Diagnosed Date [...] Pt is a participant in the [facility] (Consortium of Rheumatology Researchers of [facility]) national data collection study. For further information please call Dr Alban Del Real or Tata Meeks, RN, CCRC at [phone] [facility] RESEARCH OTHER*[id number] 04/12/2003 08/26/2009 Overview: Renamed Per Clinical Trials Billing Project. Pt is a participant in the [employer] (Consortium of Rheumatology Researchers of [place]) national data collection study. For further information please call Dr Alban Del Real or Tata Meeks, RN, CCRC at [phone] ABN CERVIX NEC-ANTEPART 11/24/200205/31 Elderly multigravida with an tepartum condition or complication 10/10/2002 06/22/2017 Arthritis, rheumatoid 2017 DIABETES-ANTEPARTUM 06/23/19 18 documented as of this encounter (statuses as of 02/09/2023) Immunizations Name Administration Dates Next Due COVID-19 [...] (Menactra) 03/13/2018 Pneumococcal Conjugate Vacci ne, 20-valent ([id number]) 04/06/2022 Pneumococcal Polysaccharide PPV23 (Pneumovax) 03/16/2005 SARS-COV-2 [...] 4:05 PM EST Please send her my Comfort Lineer message and route to scheduling pool to [...] Office Visit General Internal Medicine [facility] [place] [address] [place], [place] [address] Raven Agrawal MD 200 [facility] [place] [address] 04/21/2023 4:00 PM EST Office Visit Cardiology, [facility] 132 [place] [address] Jonathon Smith MD 132 [place] [address] 05/24/2023 11:00 AM EDT Cardiac Studies Cardiac Studies, [facility] 132 [place] [address] 05/24/2023 3:00 PM EDT Office Visit Hematology/Oncology [facility] 200 [place] [address] Fatimah Quintero CRNP 400 [facility] [place] [address] 12/24/2023 1:00 PM EDT Imaging Radiology [facility] [address] Scheduled Procedures Name Priority Associated Diagnoses Date/Ti me COLONOSCOPY FLEXIBLE PROXIMA L DIAGNOSTIC Recall Screening for malignant neoplasm of colon Health Maintenance Due Date Last Done Comments HPV/Co-Test 1996 Cologuard 09/13/2011 Fecal Occult Blood Test 09/13/2011 Sigmoidoscopy 09/13/2011 DISCUSS TOBACCO CESSATION (REFER TO SMARTSET #6600) 06/27/2022 06/27/2021, 06/13/2020 COVID-19 Vaccine ( season) [...] 09/20/2020 LUNG CANCER SCREENING - USE SMARTSET 01839 Completed 03/23/2022, 09/16/2021, 09/16/2020, Additional history exists Pneumococcal Vaccine: Pediatrics (0 to 5 Years) and At-Risk Patients (6 to 64 Years) Completed 04/06/2022, 03/16/2005 GARDASIL-HPV IMMUNIZATION SERIES Aged Out No longer eligible based on patient's age to complete this topic documented as of this encounter Medical Devices Not on filedocumented as of this encounter Care Teams Coordinator Hotels Relationship Specialty Start Date End Date Raven Agrawal MD 200 [place] [address] PCP - General Internal Medicine 12/27/17 documented as of this encounter
--- OUTSIDE RECORDS SUMMARY | 2023-05-29 12:42 | External Medical Summary | Summary of Care ---
Author Name Unknown Organization [facility] Address [address] [place] [place] [place] [address] Phone [phone] Care Team Providers Care Bookkeeping Assistant Name Role Phone Raven Agrawal MD Primary Care Provider [phone] Reason for Visit * Reason Onset Date Comments Appointment 12/25/2020 Encounter Details Date Type Department Care Team (Late st Contact Info) Description 12/25/2020 Telephone General Internal Medicine [facility] [place] 200 [facility] [place] [address] Raven Agrawal MD 200 [facility] [place] [address] Appointment Allergies No known active allergiesdocumented as of this encounter (statuses as of 02/02/2023) Medications Medication Sig Dispensed Refills Start Date [...] 0 07/04/2019 Active zolpidem (AMBIEN) 10 MG TabletIndications :Persistent insomnia Take 1 Tablet by mouth at bedtime. DrMurphy 7 Tab 0 07/04/2019 Active Melatonin ER 1 MG TBCRIndications:P ersistent insomnia at bedtime 0 10/02/2019 Active Ipratropium-Albut rudolph 0.5-2.5 (3) MG/3ML Inhalation Solution (Duoneb)Indicatio ns:COPD exacerbation (HCC),Bronchitis, complicated Inhale 3 mL via nebulizer every 6 hours as needed for Wheezing. 120 mL 0 12/25/2020 Active Albuterol Sulfate HFA 108 (90 Base) MCG/ACT Inhalation Aerosol SolutionIndicatio ns:COPD, moderate (HCC) Inhale 2 Puffs by mouth every 4 hours as needed for Wheezing. 18 g 0 02/13/2020 3 Discontinued(Med ication List Clean Up) amLODIPine Besylate 2.5 MG Oral Tablet (NORVASC) TAKE 1 TABLET BY MOUTH EVERY DAY 90 Tab 3 02/16/2020 1 Discontinued Budesonide-Formot rudolph Fumarate 160-4.5 MCG/ACT Inhalation Aerosol (Symbicort)Indica tions:COPD, moderate (HCC) INHALE 2 PUFFS BY MOUTH 2 TIMES A DAY. -restart 03/27/2020 10 g 5 03/27/2020 2 Discontinued(Ref ill) Metoprolol Succinate ER 100 MG Oral Tablet Extended Release 24 Hour (toPROL XL) TAKE 1 TABLET BY MOUTH EVERY DAY 90 Tab 3 05/28/2020 2 Discontinued Gabapentin 600 MG Oral Tablet (Neurontin)Indica tions:Type 2 diabetes mellitus with diabetic neuropathy, unspecified ([facility]) TAKE 1 TAB BY MOUTH 3 TIMES A DAY. AND 1/2 TAB AFTERNOON AND AT NIGHT-INC 07/04/2019 360 Tab 1 07/01/2020 1 Discontinued Lisinopril 10 MG Oral Tablet (Prinivil)Indicat ions:Type 2 diabetes mellitus with hemoglobin A1c goal of less than 7.0% ([facility]),LVH (left ventricular hypertrophy) due to hypertensive disease, without heart failure,HTN, goal below 130/80 TAKE 1 TAB BY MOUTH DAILY. (INC 03/27/20) 90 Tab 3 09/25/2020 2 Discontinued Estradiol 0.1 MG/GM Vaginal Cream (Estrace)Indicati ons:Postmenopausa l atrophic vaginitis,Vulvar dystrophy Administer 1 g into the vagina daily. X 1 week then once a week, apply thin layer externally vulvar area 42.5 g 3 09/24/2020 3 Discontinued(Med ication List Clean Up) Rosuvastatin Calcium 10 MG Oral Tablet (Crestor)Indicati ons:Type 2 diabetes mellitus with diabetic neuropathy, without long-term current use of insulin ([facility]),Mixed dyslipidemia Take 1 Tab by mouth daily. --inc 03/27/20 90 Tab 1 10/03/2020 2 Discontinued Venlafaxine HCl ER 37.5 MG Oral Capsule Extended Release 24 Hour (Effexor XR)Indications:Ma francisca depressive disorder with single episode, in remission ([facility]) TAKE 1 CAPSULE BY MOUTH DAILY. DO NOT CUT, CRUSH OR CHEW. 90 Cap 1 12/16/2020 2 Discontinued Janumet XR 50-1000 MG Oral Tablet Extended Release 24 Hour (SITagliptin-metF ORMIN HCl ER)Indications:Ty pe 2 diabetes mellitus with hemoglobin A1c goal of less than 7.0% ([facility]),Type 2 diabetes mellitus with diabetic neuropathy, unspecified ([facility]) TAKE 1 TABLET BY MOUTH TWICE A DAY 180 Tab 1 12/25/2020 2 Discontinued NyQuil HBP Cold & Flu 15-6.25-325 MG/15ML Oral Liquid (SE-Qbienuxxmf-Ic etaminophen) Take by mouth. 0 1 Discontinued Cefdinir 300 MG Oral Capsule (Omnicef)Indicati ons:COPD exacerbation (HCC),Bronchitis, complicated Take 1 Cap by mouth every 12 hours for 10 days. For 10 days. 20 Cap 0 12/25/2020 1 predniSONE 10 MG Oral Tablet (Deltasone)Indica tions:COPD exacerbation (HCC),Bronchitis, complicated Take 5 tabs for 2 days, 4 tabs for 2 days, 3 tabs for 2 days, 2 tabs for 2 days 1 tab for 2 days 30 Tab 0 12/25/2020 1 Discontinued Clotrimazole 1 % External Cream (Lotrimin AF)Indications:In tertrigo Apply topically to affected area 2 times a day for 28 days. Till better 15 g 0 12/25/2020 1 documented as of this encounter (statuses as of 02/02/2023) Active Problems Problem Noted Date Diagnosed Date Type 2 diabetes mellitus wit h diabetic neuropathy, without long-term current use of insulin 10/06/2022 Mixed dyslipidemia 10/06/2022 COPD, group B, by GOLD 2017 classification 06/08 Overview: Per COPD GOLD Classification Granulomatous lung disease 06/27/2021 Dense breast tissue on mammogram 01/06/2019 Overview: 01/17; Tobacco use disorder 06/09/2018 Elevated hemoglobin 04/04/2018 Overview: 04/1978-GiKrwh-edr EPO, ferritin,Tsat, neg JAK2 mutn LVH (left ventricular hypert rophy) due to hypertensive disease, without heart failure 12/27/2017 Overview: 06/1717-scge-xn46%, no WMabn,mild A Scl,gr 2 DD HTN, [...] as of this encounter (statuses as of 02/02/2023) Resolved Problems Problem Noted Date Diagnosed Date [...] Project. Pt is a participant in the [facility] (Consortium of Rheumatology Researchers of [place]) national data collection study. For further information please call Dr Alban Del Real or Tata Meeks, RN, CCRC at [phone] [facility] RESEARCH OTHER*[id number] 04/12/2003 08/26/2009 Overview: Renamed Per Clinical Trials Billing Project. Pt is a participant in the [facility] (Consortium of Rheumatology Researchers of [place]) national data collection study. For further information please call Dr Alban Del Real or Tata Meeks, RN, CCRC at [phone] ABN CERVIX NEC-ANTEPART 11/24/200205/31 Elderly multigravida with an tepartum condition or complication 10/10/2002 06/22/2017 Arthritis, rheumatoid 2017 DIABETES-ANTEPARTUM 06/23/19 18 documented as of this encounter (statuses as of 02/02/2023) Immunizations Name Administration Dates Next Due COVID-19 [...] (Menactra) 03/13/2018 Pneumococcal Conjugate Vacci ne, 20-valent ([id number]) 04/06/2022 Pneumococcal Polysaccharide PPV23 (Pneumovax) 03/16/2005 SARS-COV-2 [...] Day Cigarettes 1 36 Smokeless Tobacco: Never Comments:06/13/20 currently smoking 17 cig/day Alcohol Use Standard Drinks/Week Comments Yes 0 [...] encounter Miscellaneous Notes * Telephone Encounter - Mariya Sequeira, MASHA - 02/02/2023 5:23 PM EST Pt seen by Dr Patricia Guevara on 02/14/21. * Telephone Encounter - Eva Flowers OSA - 12/26/2020 8:38 AM EDT Lmom. Patient saw Dr. Patricia Guevara saw patient in May 2018. This would be an return appointment. * Telephone Encounter - Any Caceres OSA - 12/25/2020 5:46 PM EDT wanted the Sleep med apt scheduled Was unable to due to being denied scheduling Please advise pt aware that someone will call to schedule [phone] is best to reach the pt at documented in this encounter Plan of Treatment Upcoming Encounters Date Type Department Care Team (Late st Contact Info) Description 04/14/2023 5:20 PM EST Office Visit General Internal Medicine [facility] [place] [address] Raven Agrawal MD 200 [facility] [place] [address] 04/21/2023 4:00 PM EST [facility] [place] [address] [place] [address] Jonathon Smith MD [address] [place] [address] 05/24/2023 11:00 AM EDT Card[facility] Studies [facility] [place] [address] [place] [address] 05/24/2023 3:00 PM EDT Office Visit Hematology/Oncology [facility] [place] [address] Fatimah Quintero CRNP [address] [place] [address] [place] [address] 12/24/2023 1:00 PM EDT Imaging Radiology [address], [place] 132 [facility] [place] [address] Scheduled Procedures Name Priority Associated Diagnoses Date/Ti [...] 09/20/2020 LUNG CANCER SCREENING - USE SMARTSET 41478 Completed 03/23/2022, 09/16/2021, 09/16/2020, Additional history exists Pneumococcal Vaccine: Pediatrics (0 to 5 Years) and At-Risk Patients (6 to 64 Years) Completed 04/06/2022, 03/16/2005 GARDASIL-HPV IMMUNIZATION SERIES Aged Out No longer eligible based on patient's age to complete this topic documented as of this encounter Medical Devices Not on filedocumented as of this encounter Care Teams Bookkeeping Assistant Relationship Specialty Start Date End Date Raven Agrawal MD [address] [place] [address] PCP - General Internal Medicine 12/27/17 documented as of this encounter
--- OUTSIDE RECORDS SUMMARY | 2023-05-29 12:42 | External Medical Summary | Summary of Care ---
Author Name Unknown Organization [facility] Address [address] [facility] [place] [address] Phone [phone] Care Team Providers Care Pole Peeling Machine Operator Name Role Phone Raven Agrawal MD Primary Care Provider [phone] Reason for Visit * Reason Comments Follow Up 1 month follow up. Hazel walker presents with feeling fatigue but states lungs have improved since finishing prednisone. Encounter Details Date Type Department Care Team (Late st Contact Info) Description 12/29/2022 8:20 AM EDT Office Visit General Internal Medicine [facility] [address] [place] [address] [address] Raven Agrawal MD [address] [facility] [place] [address] COPD, moderate (HCC)*; Tobacco use disorder; MASHA on CPAP; Elevated hemoglobin (HCC); Still's disease of adult (HCC); Rheumatoid arthritis involving multiple sites with positive rheumatoid factor (HCC) Allergies No known active allergiesdocumented as of this encounter (statuses as of 01/10/2023) Medications Medication Sig Dispensed Refills Start Date [...] A1c goal of less than 7.0% ([facility]),Type 2 diabetes mellitus with diabetic neuropathy, unspecified (HCC) TAKE 1 TABLET BY MOUTH TWICE A DAY 180 Tablet 1 08/13/2022 Active Lisinopril 10 MG Oral Tablet (Prinivil)Indicat ions:Type 2 diabetes mellitus with hemoglobin A1c goal of less than 7.0% ([facility]),LVH (left ventricular hypertrophy) due to hypertensive disease, without heart failure,HTN, goal below 130/80 TAKE 1 TABLET BY MOUTH ONCE DAILY 90 Tablet 1 09/15/2022 Active Gabapentin 600 MG Oral Tablet (Neurontin)Indica tions:Type 2 diabetes mellitus with diabetic neuropathy, without long-term current use of insulin ([facility]) TAKE 1 TABLET IN MORNING, 1.5 TABLET [...] THE MORNING 90 Capsule 1 11/03/2022 Active Fluticasone-Umecl idin-Vilant 100-62.5-25 MCG/ACT Aerosol Powder Breath Activated (Trelegy Ellipta)Indicatio ns:Hospital discharge follow-up,COPD exacerbation (HCC),Rhinovirus infection,COPD, moderate (HCC) Inhale 1 Puff by mouth in the morning. Start 11/27/2022 and stop symbicort (cancel Rx anoro ellipta). 60 Blister Dosing Unit 5 11/27/2022 Active Varenicline Tartrate 1 MG Oral TabletIndications [...] without long-term current use of insulin ([facility]),Mixed dyslipidemia TAKE 1 TABLET BY MOUTH EVERY DAY 90 Tablet 2 12/23/2022 Active Budesonide-Formot rudolph Fumarate 160-4.5 MCG/ACT Inhalation Aerosol (Symbicort)Indica tions:COPD, moderate (HCC) INHALE 2 PUFFS BY MOUTH 2 TIMES A DAY. 10 g 5 10/06/2022 3 Discontinue d(End of Procedure) Azithromycin 250 MG Oral Tablet (Zithromax) Take 1 Tablet by mouth in the morning. 0 11/25/2022 3 Discontinue d(End of Procedure) predniSONE 20 MG Oral Tablet (Deltasone) Take 1 Tablet by mouth in the morning and 1 Tablet before bedtime. 0 11/25/2022 3 Discontinue d(End of Procedure) Umeclidinium-Inna nterol 62.5-25 MCG/ACT Inhalation Aerosol Powder Breath Activated (ANORO ellipta) Inhale 1 Puff by mouth in the morning. 0 11/24/2022 3 Discontinue d(End of Procedure) predniSONE 10 MG Oral Tablet (Deltasone)Indica tions:Hospital discharge follow-up,COPD exacerbation (HCC),Rhinovirus infection Take 3 tabs for 3 days, 2 tabs for 3 days 1 tab for 3 days 18 Tablet 0 11/27/2022 3 Discontinue d(End of Procedure) Hospital, Clinic, or Other Facility Administered Medication [...] as of this encounter (statuses as of 01/10/2023) Active Problems Problem Noted Date Diagnosed Date Type 2 diabetes mellitus wit h diabetic neuropathy, without long-term current use of insulin 10/06/2022 Mixed dyslipidemia 10/06/2022 COPD, group B, by GOLD 2017 classification 06/08 Overview: Per COPD GOLD Classification Granulomatous lung disease 06/27/2021 Dense breast tissue on mammogram 01/06/2019 Overview: 01/17; Tobacco use disorder 06/09/2018 Elevated hemoglobin 04/04/2018 Overview: 04/1979-FwJuph-tqq EPO, ferritin,Tsat, neg JAK2 mutn LVH (left ventricular hypert rophy) due to hypertensive disease, without heart failure 12/27/2017 Overview: 06/1776-pkuy-rr30%, no WMabn,mild A Scl,gr 2 DD HTN, [...] as of this encounter (statuses as of 01/10/2023) Resolved Problems Problem Noted Date Diagnosed Date [...] Real or Tata Meeks, RN, CCRC at [phone] [facility] RESEARCH OTHER*[id number] 04/12/2003 08/26/2009 Overview: Renamed Per Clinical Trials Billing Project. Pt is a participant in the [facility] (Consortium of Rheumatology Researchers of [place]) national data collection study. For further information please call Dr Alban Del Real or Tata Meeks, RN, CCRC at [phone] ABN CERVIX NEC-ANTEPART 11/24/200205/31 Elderly multigravida with an tepartum condition or complication 10/10/2002 06/22/2017 Arthritis, rheumatoid 2017 DIABETES-ANTEPARTUM 06/23/19 18 documented as of this encounter (statuses as of 01/10/2023) Immunizations Name Administration Dates Next Due COVID-19 [...] (Menactra) 03/13/2018 Pneumococcal Conjugate Vacci ne, 20-valent ([id number]) 04/06/2022 SARS-COV-2 (COVID-19) Vaccine Unspecified 2021 SEASONAL [...] Tobacco: Never Tobacco Cessation:Ready to Q uit: No; Counseling Given: No Comments:06/29/22 currently smoking 1 ppd Alcohol Use [...] Sign Reading Time Taken Comments Blood Pressure 124/68 12/29/2022 8:17 AM EDT Pulse 80 12/29/2022 8:17 AM EDT Temperature 35.7 C (96.3 F) 12/29/2022 8:17 AM ED T Respiratory Rate - - Oxygen Saturation 93% 12/29/2022 8:17 AM EDT Inhaled Oxygen Concentration - - Weight 73.2 kg (161 lb 6.4 oz) 12/29/2022 8:17 A M EDT Height 162.6 cm (5' 4") 12/29/2022 8:17 AM EDT Body Mass Index 27.7 12/29/2022 8:17 AM EDT documented in this encounter Progress Notes * Raven Agrawal MD - 12/29/2022 8:44 AM EDT SUBJECTIVE: Aura Hardy is a 57 year old female. Chief Complaint Patient presents with Follow Up 1 month follow up. Patient presents with feeling fatigue but states lungs have improved since finishing prednisone. HPI: Patient presents today for 1 mth fu Patient was admitted to the hospital 11/23/2022, discharged 11/24/22 for COPD exacerbation secondary to rhino virus. PMH-Type 2 diabetes with chronic neuropathy, HTN with LVH, dyslipidemia, low hdl, Stills disease, Rheumatoid arthritis And OA f/b Dr. Nguyen in [place], ITP, depression, tobacco use disorder,COPD,OSAS on CPAP since 17/02 10- CWP, history of C diff colitis 07/16; moderate proximal right subclavian artery stenosis; normal colonoscopy 01/2018, Went to urgent care on 11/23/2022 with symptom onset of 11/21/2022 of URI, family members were also sick, symptoms got worse on Wednesday as she could not sleep well at night, pulse ox 85% on room air andwas sent to the ER. In the ED pulse ox was 85% on room air, required 5 L of oxygen initially. Given [...] get an anoro, (was using symbicort from afriend who was not using it when ch in 10/21) -continues to have cough productive of a clear sputum, still smoking 6-8 cigarettes per day -willing to travel to [place] to see assistant editor, maybe traveling in the next few weeks to see her mother On 11/27/22--Pulse ox at rest 94% pulse 60, with exertion pulse ox 94%, pulse 78 Mg nml at 1.9-I extended pred taper, Start trelegy 11/27/2022 and stop symbicort (cancel Rx anoro ellipta). -needs to [facility] pul appt--telephone supervisor has reached out xle times 12/25/22-noticed significant improvement in her symptoms; not used DuoNeb in the last week She has set a quit date of smoking for 01/18/23 and will start Chantix Perez/, still smoking 1/2-3/4 PPD Last sleep clinic eval noted, due for follow-up, also to schedule next mammogram Had pneumonia vac at [facility]--get rec Had prevnar 20 04/2022. Refuses flu vaccine Discussed about covid booster Results for orders placed or performed in visit on 11/27/22 MAGNESIUM Result Value Ref Range Magnesium 1.9 1.5 - 2.6 mg/dL *Note: Due to a large number of results and/or encounters for the requested time period, some results have not been displayed. A complete set of results can be found in Results Review. Immunization History Administered Date(s) Administered COVID-19 mRNA, [...] Vaccine (Menactra) 03/13/2018 Pneumococcal Conjugate Vaccine, 20-valent ([id number]) 04/06/2022 Pneumococcal Polysaccharide PPV23 (Pneumovax) 03/16/2005 SARS-COV-2 (COVID-19) Vaccine Unspecified 03/25/2021 Seasonal Influenza Virus Vaccine, Unspecified Formulation 11/17/2011, 01/31/2013, 01/03/2019 Seasonal Influenza, PF, 6 mons & Above, IM , (Flulaval) 01/03/2019 Seasonal Influenza, Split, IIV3, With Preserve, Inj 11/17/2011, 01/31/2013 TD - Tetanus/Diptheria (ADULT) 11/17/2011 TD, Preservative Free 11/17/2011, 10/06/2022 TDAP (age 11 and older)(Adacel) 01/29/2009 Zoster Vaccine Recombinant (Shingrix) 01/17/2019, 05/08/2019 Patient Active Problem List Diagnosis Code Type 2 diabetes mellitus with hemoglobin A1c goal of less than 7.0% ([facility]) E11.9 Still's disease of adult ([facility]) 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 ([facility]) D69.3 Deviated nasal septum J34.2 Rheumatoid arthritis involving multiple sites with positive rheumatoid factor ([facility]) M05.79 LVH (left ventricular hypertrophy) due to hypertensive disease, without heart failure I11.9 HTN, goal below 130/80 I10 Screen for colon cancer Z12.11 History of Clostridium difficile infection Z86.19 MASHA on CPAP G47.33 Hepatic steatosis K76.0 Elevated hemoglobin ([facility]) D58.2 Tobacco use disorder F17.200 Dense breast tissue on mammogram R92.30 Granulomatous lung disease ([facility]) J84.10 COPD, group B, by GOLD 2017 classification ([facility]) J44.9 Type 2 diabetes mellitus with diabetic neuropathy, without long-term current use of insulin ([facility]) E11.40 Mixed dyslipidemia E78.2 Outpatient Medications Prior to Visit Medication Sig Dispense Refill Rosuvastatin Calcium 10 MG Oral Tablet (Crestor) TAKE 1 TABLET BY MOUTH EVERY DAY 90 Tablet 2 Qqbjotaskhq-Zjzqkucpi-Jlbdtq 100-62.5-25 MCG/ACT Aerosol Powder Breath Activated (Trelegy [...] 1.5 TABLET BEFORE BEDTIME 360 Tablet 1 Lisinopril 10 MG Oral Tablet (Prinivil) TAKE 1 TABLET BY MOUTH ONCE DAILY 90 Tablet 1 Janumet XR 50-1000 MG Oral Tablet Extended Release 24 Hour (SITagliptin- metFORMIN HCl ER) TAKE 1 TABLET BY MOUTH TWICE A DAY 180 Tablet 1 amLODIPine Besylate 2.5 MG Oral Tablet (Norvasc) TAKE 1 TABLET BY MOUTH EVERY DAY 90 Tablet 4 Metoprolol Succinate ER 100 MG Oral Tablet Extended Release 24 Hour (toPROL XL) TAKE 1 TABLET BY MOUTH EVERY DAY 90 Tablet 3 CPAP every night at bedtime . Melatonin ER 1 MG TBCR at bedtime [...] 2000 UNIT PO TABS one tablet daily] Varenicline Tartrate 1 MG Oral Tablet Take 1 Tablet by mouth in the morning and 1 Tablet before bedtime. As directed on box-use from 11/07/2022. (Patient not taking: Reported on 12/29/2022) 60 Tablet 4 [DISCONTINUED] predniSONE 10 MG Oral Tablet (Deltasone) Take 3 tabs for 3 days, 2 tabs for 3 days 1tab for 3 days 18 Tablet 0 [DISCONTINUED] Azithromycin 250 MG Oral Tablet (Zithromax) Take 1 Tablet by mouth in the morning. [DISCONTINUED] predniSONE 20 MG Oral Tablet (Deltasone) Take 1 Tablet by mouth in the morning and 1Tablet before bedtime. [DISCONTINUED] Umeclidinium-Vilanterol 62.5-25 MCG/ACT Inhalation Aerosol Powder Breath Activated (ANORO ellipta) Inhale 1 Puff by mouth in the morning. (Patient not taking: Reported on 12/29/2022) [DISCONTINUED] Budesonide-Formoterol Fumarate 160-4.5 MCG/ACT Inhalation Aerosol (Symbicort) INHALE2 PUFFS BY MOUTH 2 TIMES A DAY. (Patient not taking: Reported on 12/29/2022) 10 g 5 Clobetasol Propionate 0.05 % External Cream (Temovate) Apply topically to affected area 2 times a day. To affected area for up to two weeks. (Patient taking differently: Apply topically to affected area as needed (yeast infections). To affected area for up to two weeks.) 15 g 1 Ipratropium-Albuterol 0.5-2.5 (3) MG/3ML Inhalation Solution (Duoneb) Inhale 3 mL via nebulizer every 6 hours as needed for Wheezing. 120 mL 0 Facility-Administered Medications Prior to Visit Medication Dose Route Frequency Provider Last Rate Last Admin Albuterol Sulfate (Proventil) (2.5 MG/3ML) 0.083% inhalation solution 2.5 mg 2.5 mg Nebulizer Medina Jackson CRNP 2.5 mg at 03/12/22 1036 Albuterol Sulfate (Proventil) (5 MG/ML) 0.5% *conc* inhalation solution 2.5 mg 2.5 mg Nebulizer Medina Chavira CRNP Last reviewed on 12/29/2022 8:17 AM by Blessing Carlisle CMA Review of patient's allergies indicates: No Known Allergies OBJECTIVE: BP 124/68 | Pulse 80 | Temp 35.7 C (96.3 F) | Ht 1.626 m (5' 4") | Wt 73.2 kg (161 lb 6.4 oz) |LMP 10/10/2014 (Exact Date) | SpO2 93% | BMI 27.70 kg/m | BSA 1.82 m PHYSICAL EXAM: General: alert, healthy, no distress, well nourished and well developed Ears: External ears normal, Canals clear, TM's Normal Nose: mild mucosal edema, no purulent discharge, no mucosal erythema, no sinus tenderness Oropharynx: no exudate, min erythema sites pnd Neck: supple, no adenopathy Heart: regular Rhythm and rate, no murmurs Lungs: CTA , no rhonchi or rales ASSESSMENT/PLAN: COPD, moderate (HCC) (Primary) - SPIROMETRY B/A BRONCHODILATOR; Future; Expected date: 12/30/2022 - LUNG VOLUMES (PLETHYSMOGRAPHY); Future; Expected date: 12/29/2022 - DIFFUSION CAPACITY (DLCO); Future; Expected date: 12/29/2022 - Albuterol Sulfate (Proventil) (2.5 MG/3ML) 0.083% inhalation solution 2.5 mg - PULMONARY STRESS TESTING; Future; Expected date: 01/28/2023 - CBC WITH WBC DIFFERENTIAL; Future; Expected date: 04/08/2023 Tobacco use disorder - PULMONARY STRESS TESTING; Future; Expected date: 01/28/2023 - CBC WITH WBC DIFFERENTIAL; Future; Expected date: 04/08/2023 MASHA on CPAP - CBC WITH WBC DIFFERENTIAL; Future; Expected date: 04/08/2023 Elevated hemoglobin (HCC) - CBC WITH WBC DIFFERENTIAL; Future; Expected date: 04/08/2023 Still's disease of adult (HCC) - CBC WITH WBC DIFFERENTIAL; Future; Expected date: 04/08/2023 Rheumatoid arthritis involving multiple sites with positive rheumatoid factor (HCC) - CBC WITH WBC DIFFERENTIAL; Future; Expected date: 04/08/2023 Continue medications, has set quit date for smoking in December. Follow Up: Return if symptoms worsen or fail to improve, for Return with Physician. | For: Return with Physician | Check-out note: -F/u as jose in Apr -[facility] pulm appt,PFT, 6 MWT few wks prior. -j[facility] sleep cl f/u in april, ogram end of nov 2023 (This note was completed using the dictation [...] with plan of care. Raven Agrawal MD 12/29/2022 documented in this encounter Nursing Notes * Blessing Carlisle CMA - 12/29/2022 8:15 AM EDT Chief Complaint Patient presents with Follow Up 1 month follow up. Patient presents with feeling fatigue but states lungs have improved since finishing prednisone. documented in this encounter Plan of Treatment Upcoming Encounters Date Type Department Care Team (Late st Contact Info) Description 04/14/2023 5:20 PM EST Office Visit General Internal Medicine [facility] [address] [facility] [place], [place] [address] Raven Agrawal MD [address] [facility] [place], [place] [address] 04/21/2023 4:00 PM EST Office Visit Cardiology, [facility] [address] [facility] [place] [address] Jonathon Smith MD [address] [facility] [place] [address] 05/24/2023 11:00 AM EDT Cardiac Studies Cardiac Studies, [facility] [address] [facility] [place] [address] 05/24/2023 3:00 PM EDT Office Visit Hematology/Oncology [facility] [address] [facility] [place], [place] [address] Fatimah Quintero CRNP [address] [place] [address] [place] [address] 12/24/2023 1:00 PM EDT Imaging Radiology [address] [facility] [place] [address] Pending Results Name Type Priority Associated Diagnoses Date /Time SPIROMETRY B/A BRONCHODILATOR Procedures Routine COPD, moderate (HCC) 01/06/2023 10:38 AM EST LUNG VOLUMES (PLETHYSMOGRAPHY) Procedures Routine COPD, moderate (HCC) 01/06/2023 10:38 AM EST DIFFUSION CAPACITY (DLCO) Procedures Routine COPD, moderate (HCC) 01/06/2023 10:38 AM EST Scheduled Orders Name Type Priority Associated Diagnoses Orde r Schedule PULMONARY STRESS TESTING Procedures Routine COPD, moderate (HCC) Tobacco use disorder Expected: 01/28/2023, Expires: 01/29/2024 CBC WITH WBC DIFFERENTIAL Lab Routine COPD, moderate (HCC) Tobacco use disorder MASHA on CPAP Elevated hemoglobin (HCC) 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) Expected: 04/08/2023 (Approximate), Expires: 12/30/2023 Scheduled Procedures Name Priority Associated Diagnoses Date/Ti [...] 09/20/2020 LUNG CANCER SCREENING - USE SMARTSET [id number] Completed 03/23/2022, 09/16/2021, 09/16/2020, Additional history exists [...] obstruction, not elsewhere classified Tobacco use disorder MASHA on CPAP Obstructive sleep apnea (adult) (pediatric) Elevated hemoglobin (HCC) Other hemoglobinopathies Still's disease of adult (HCC) Other rheumatoid arthritis with visceral or systemic involvement Rheumatoid arthritis involving multiple sites with positive rheumatoid factor (HCC) documented in this encounter Care Teams Pole Peeling Machine Operator Relationship Specialty Start Date End Date Raven Agrawal MD [address] [place] [address] PCP - General Internal Medicine 12/27/17 documented as of this encounter
--- OUTSIDE RECORDS SUMMARY | 2023-05-29 12:42 | External Medical Summary | Summary of Care ---
Author Name Unknown Organization [facility] Address [address] [place] [place] [place] [address] Phone [phone] Care Team Providers Care Freight Weigher Name Role Phone Raven Agrawal MD Primary Care Provider [phone] Reason for Visit * Reason Onset Date Comments Test Results 01/19/2023 Encounter Details Date Type Department Care Team (Late st Contact Info) Description 01/19/2023 Telephone General Internal Medicine [facility] [place] [address] [facility] [place] [address] Raven Agrawal MD [address] [facility] [place] [address] Test Results Allergies No known active allergiesdocumented as of this encounter (statuses as of 02/01/2023) Medications Medication Sig Dispensed Refills Start Date [...] as of this encounter (statuses as of 02/01/2023) Active Problems Problem Noted Date Diagnosed Date Type 2 diabetes mellitus wit h diabetic neuropathy, without long-term current use of insulin 10/06/2022 Mixed dyslipidemia 10/06/2022 COPD, group B, by GOLD 2017 classification 06/08 Overview: Per COPD GOLD Classification Granulomatous lung disease 06/27/2021 Dense breast tissue on mammogram 01/06/2019 Overview: 01/17; Tobacco use disorder 06/09/2018 Elevated hemoglobin 04/04/2018 Overview: 04/1979-YpTgho-jhn EPO, ferritin,Tsat, neg JAK2 mutn LVH (left ventricular hypert rophy) due to hypertensive disease, without heart failure 12/27/2017 Overview: 06/1718-grcx-wv74%, no WMabn,mild A Scl,gr 2 DD HTN, [...] as of this encounter (statuses as of 02/01/2023) Resolved Problems Problem Noted Date Diagnosed Date [...] Project. Pt is a participant in the [facility] (Consortium of Rheumatology Researchers of [place]) national data collection study. For further information please call Dr Alban Del Real or Tata Meeks, RN, CCRC at [phone] [facility] RESEARCH OTHER*[id number] 04/12/2003 08/26/2009 Overview: Renamed Per Clinical Trials Billing Project. Pt is a participant in the [employer] (Consortium of Rheumatology Researchers [place]) national data collection study. For further information please call Dr Alban Del Real or Tata Meeks, RN, CCRC at [phone] ABN CERVIX NEC-ANTEPART 11/24/200205/31 Elderly multigravida with an tepartum condition or complication 10/10/2002 06/22/2017 Arthritis, rheumatoid 2017 DIABETES-ANTEPARTUM 06/23/19 18 documented as of this encounter (statuses as of 02/01/2023) Immunizations Name Administration Dates Next Due COVID-19 [...] (Menactra) 03/13/2018 Pneumococcal Conjugate Vacci ne, 20-valent ([id number]) 04/06/2022 Pneumococcal Polysaccharide PPV23 (Pneumovax) 03/16/2005 SARS-COV-2 [...] encounter Miscellaneous Notes * Telephone Encounter - Prudence Pal LPN [...] PM EST Office Visit General Internal Medicine [address] [place] [address] Raven Agrawal MD [address] [place] [address] [place] [address] 04/21/2023 4:00 PM EST Office Visit Cardiology, [facility] [address] [place] [address] Jnoathon Smith MD [address] [place] [address] 05/24/2023 11:00 AM EDT Cardiac Studies Cardiac Studies, [facility] [address] [place] [address] 05/24/2023 3:00 PM EDT Office Visit Hematology/Oncology [facility] [address] [facility] [place] [address] Fatimah Quintero, TERRENCE [address] [place] [address] 12/24/2023 1:00 PM EDT Imaging Radiology [address], [place] [address] [place] [address] Scheduled Procedures Name Priority Associated Diagnoses Date/Ti [...] 09/20/2020 LUNG CANCER SCREENING - USE SMARTSET [id number] Completed 03/23/2022, 09/16/2021, 09/16/2020, Additional history exists Pneumococcal Vaccine: Pediatrics (0 to 5 Years) and At-Risk Patients (6 to 64 Years) Completed 04/06/2022, 03/16/2005 GARDASIL-HPV IMMUNIZATION SERIES Aged Out No longer eligible based on patient's age to complete this topic documented as of this encounter Medical Devices Not on filedocumented as of this encounter Care Teams Freight Weigher Relationship Specialty Start Date End Date Raven Agrawal MD [address] [facility] [place] [address] PCP - General Internal Medicine 12/27/17 documented as of this encounter
--- OUTSIDE RECORDS SUMMARY | 2023-05-29 12:43 | External Medical Summary | Summary of Care ---
Author Name Unknown Organization [facility] Address [address] [place] [address] Phone [phone] Care Team Providers Care Patient Registration Rep Name Role Phone Raven Agrawal MD Primary Care Provider [phone] Reason for Visit * Reason Onset Date Comments Medication Refill 11/04/2022 Encounter Details Date Type Department Care Team (Late st Contact Info) Description 11/04/2022 [facility] [address] [facility] [place] [id number] Raven Agrawal MD [address] [facility] [place] [address] Tobacco use disorder; COPD, moderate (HCC) Allergies No known active allergiesdocumented as of this encounter (statuses as of 12/24/2022) Medications Medication Sig Dispensed Refills Start Date [...] EVERY DAY 90 Tablet 4 3 Active Janumet XR 50-1000 MG Oral Tablet Extended Release 24 Hour (SITagliptin-met FORMIN HCl ER)Indications:T ype 2 diabetes mellitus with hemoglobin A1c goal of less than 7.0% ([facility]),Type 2 diabetes mellitus with diabetic neuropathy, unspecified ([facility]) TAKE 1 TABLET BY MOUTH TWICE A DAY 180 Tablet 1 3 Active Lisinopril 10 MG Oral Tablet (Prinivil)Indica tions:Type 2 diabetes mellitus with hemoglobin A1c goal of less than 7.0% ([facility]),LVH (left ventricular hypertrophy) due to hypertensive disease, without heart failure,HTN, goal below 130/80 TAKE 1 TABLET BY MOUTH ONCE DAILY 90 Tablet 1 3 Active Gabapentin 600 MG Oral Tablet (Neurontin)Indic ations:Type 2 diabetes mellitus with diabetic neuropathy, without long-term current use of insulin ([facility]) TAKE 1 TABLET IN MORNING, 1.5 TABLET AT NOON AND 1.5 TABLET BEFORE BEDTIME 360 Tablet 1 3 Active Budesonide-Formo terol Fumarate 160-4.5 MCG/ACT Inhalation Aerosol (Symbicort)Indic ations:COPD, moderate (HCC) INHALE 2 PUFFS BY MOUTH 2 TIMES A DAY. 10 g 5 3 Active DULoxetine HCl 60 MG Oral [...] 90 Tablet 2 3 12/24/19 23 Discontinued Varenicline Tartrate 1 MG Oral TabletIndication s:Tobacco use disorder,COPD, moderate (HCC) Take 1 Tablet by mouth in the morning and 1 Tablet before bedtime. As directed on box-use . After starter pack. 60 Tablet 4 3 11/05/19 23 Discontinued(Ref ill) Chantix Starting Month Gerald 0.5 MG X 11 & 1 MG X 42 Tablet Therapy Pack (Varenicline Tartrate (Starter))Indica tions:Tobacco use disorder,COPD, moderate (HCC) 0.5 mg Daily x 3 days, then twice daily x 4 days, then 1 mg twice daily 53 Each 0 3 11/08/19 23 Discontinued(End of Procedure) Vitamin B-12 500 [...] box-use from 11/07/2022. 60 Tablet 4 3 10/05/20 23 Discontinued(Ref ill) Hospital, Clinic, or Other Facility Administered Medication Ordered Dose Route Frequency Start Date End Date Status Albuterol Sulfate (Proventil) (5 MG/ML) 0.5% *conc* inhalation solution 2.5 mgIndications:COPD, moderate (HCC) 2.5 mg NEBULIZER PRN 02/09/2022 02/09/2023 Active Albuterol Sulfate (Proventil) (2.5 MG/3ML) 0.083% inhalation solution 2.5 mgIndications:COPD, moderate (HCC) 2.5 mg NEBULIZER PRN 02/09/2022 02/09/2023 Active documented as of this encounter (statuses as of 12/24/2022) Active Problems Problem Noted Date Diagnosed Date Type 2 diabetes mellitus wit h diabetic neuropathy, without long-term current use of insulin 10/06/2022 Mixed dyslipidemia 10/06/2022 COPD, group B, by GOLD 2017 classification 06/08 Overview: Per COPD GOLD Classification Granulomatous lung disease 06/27/2021 Dense breast tissue on mammogram 01/06/2019 Overview: 01/17; Tobacco use disorder 06/09/2018 Elevated hemoglobin 04/04/2018 Overview: 04/1950-VjFnge-igu EPO, ferritin,Tsat, neg JAK2 mutn LVH (left ventricular hypert rophy) due to hypertensive disease, without heart failure 12/27/2017 Overview: 06/1787-dsot-as19%, no WMabn,mild A Scl,gr 2 DD HTN, [...] as of this encounter (statuses as of 12/24/2022) Resolved Problems Problem Noted Date Diagnosed Date [...] Real or Tata Meeks, RN, CCRC at [phone] [facility] OTHER*[id number] 04/12/2003 08/26/2009 Overview: Renamed Per Clinical Trials Billing Project. Pt is a participant in the [employer] ([employer]ortium of [employer]ology Researchers of [place]) national data collection study. For further information please call Dr Alban Del Real or Tata Meeks, RN, CCRC at [phone] ABN CERVIX NEC-ANTEPART 11/24/200205/31 Elderly multigravida with an tepartum condition or complication 10/10/2002 06/22/2017 Arthritis, rheumatoid 2017 DIABETES-ANTEPARTUM 06/23/19 18 documented as of this encounter (statuses as of 12/24/2022) Immunizations Name Administration Dates Next Due COVID-19 [...] (Menactra) 03/13/2018 Pneumococcal Conjugate Vacci ne, 20-valent (Epkaffs09) 04/06/2022 SARS-COV-2 (COVID-19) Vaccine Unspecified 2021 SEASONAL [...] Telephone Encounter - Raven Agrawal MD - 11/07/2022 9:33 AM EDTSigned Prescriptions: Disp Refills Varenicline Tartrate 1 MG Oral Tablet 60 Tab*4 Sig: Take 1 Tablet by mouth in the morning and 1 Tablet before bedtime. As directed on box-use from 11/07/2022. Authorizing Provider: RAVEN AGRAWAL * Telephone Encounter - Maricruz Andre LPN - 11/06/2022 4:50 PM EDTPending Prescriptions: Disp Refills Varenicline Tartrate 1 MG Oral Tablet 60 Tab*4 Sig: Take 1 Tablet by mouth in the morning and 1 Tablet before bedtime. As directed on box-use . After starter pack. * Telephone Encounter - MASHA Gomez - 11/04/2022 11:47 AM EDT Did you pend patient's preferred pharmacy and medication before forwarding?yes Pharmacy: [facility] [id number] [place] [address] 90 day request Pending Prescriptions: Disp Refills Varenicline Tartrate 1 MG Oral Tablet 60 Tab*4 Sig: Take 1 Tablet by mouth in the morning and 1 Tablet before bedtime. As directed on box-use . After starter pack. Last Visit: 10/06/2022 (in office), 02/13/2020 (telemedicine) Next Visit: 04/09/2023 If no future appointments scheduled, and last appointment is greater than a year ago, please schedule patient for a follow-up appointment Last date the medication was ordered: 10.06.22 Is this request for a controlled substance?No Urine Drug Screen:No results found. However, due to the size of the patient record, not all encounters were searched. Please check Results Review for a complete set of results. Patient Phone Numbers Labs: Lab Results Component Value Date/Time CREAT 0.8 10/05/2022 03:58 PM CREAT 0.8 03/25/2020 12:28 PM POTASSIUM 5.2 (H) 10/05/2022 03:58 PM POTASSIUM 4.3 03/25/2020 12:28 PM TSH 2.58 02/03/2021 01:19 PM TSH 2.34 08/29/2012 12:14 PM LDLCALC 72 03/31/2018 02:33 PM LDLDIRECT 74 10/05/2022 03:58 PM LDLDIRECT 58 03/25/2020 12:28 PM LDLDIRECT 53 07/04/2019 12:34 PM ALT 26 10/05/2022 03:58 PM ALT 22 03/25/2020 12:28 PM HGBA1C 6.9 (H) 10/05/2022 03:58 PM HGBA1C 6.8 (H) 03/25/2020 12:28 PM documented in this encounter Plan of Treatment Upcoming Encounters Date Type Department Care Team (Late st Contact Info) Description 12/29/2022 8:20 AM EDT Office Visit General Internal Medicine [facility] [address] [place] [address] Raven Agrawal MD [address] [facility] [place] [address] 04/09/2023 10:40 AM EST Office Visit General Internal Medicine [facility] [address] [facility] [place] [address] Raven Agrawal MD [address] [facility] [place] [address] 04/21/2023 4:00 PM EST Office Visit Cardiology, [facility] [address] [place] [address] Jonathon Smith MD [address] [place] [address] 05/24/2023 11:00 AM EDT Cardiac Studies Cardiac Studies, [facility] [address] [place] [address] 05/24/2023 3:00 PM EDT Office Visit Hematology/Oncology [facility] [address] [facility] [place] [address] Fatimah Quintero CRNP [address] [facility] [place] [address] Scheduled Procedures Name Priority Associated Diagnoses Date/Ti [...] 2022 01/03/2019, 01/03/2019, 01/31/2013, Additional history exists DIABETES-EYE EXAM 01/15/2023 01/15/2022, , 07/22/2017, Additional history exists [...] 10/06/2023 10/05/2022, 08/29, 04/03/2022, Additional history exists O2 ASSESSMENT COMPLETED IN PAST YEAR FOR COPD 11/28/2023 11/27/2022 Mammogram 12/18/2023 12/17/2022, 100 06/2021, 10/09/2020, Additional history exists Lipid Panel 10/06/2027 10/05/2022, 020 04/2022, 10/21/2021, [...] 09/20/2020 LUNG CANCER SCREENING - USE SMARTSET 12087 Completed 03/23/2022, 09/16/2021, 09/16/2020, Additional history exists Pneumococcal Vaccine: Pediatrics (0 to 5 Years) and At-Risk Patients (6 to 64 Years) Completed 04/06/2022, 03/16/2005 GARDASIL-HPV IMMUNIZATION SERIES Aged Out No longer eligible based on patient's age to complete this topic documented as of this encounter Medical Devices Not on filedocumented as of this encounter Visit Diagnoses Diagnosis Tobacco use disorder COPD, moderate (HCC) Chronic airway obstruction, not elsewhere classified documented in this encounter Care Teams Patient Registration Rep Relationship Specialty Start Date End Date Raven Agrawal MD [address] [place] [address] PCP - General Internal Medicine 12/27/17 documented as of this encounter
--- OUTSIDE RECORDS SUMMARY | 2023-05-29 12:43 | External Medical Summary | Summary of Care ---
Author Name Unknown Organization [facility] Address [address] [place] [address] Phone [phone] Care Team Providers Care Passport Application Examiner Name Role Phone Raven Agrawal MD Primary Care Provider [phone] Reason for Referral * Evaluate & Treat - Unlimited Visits (Within 10 days (routine)) - Pending Review Specialty Diagnoses / Procedures Referred By Adam washington Referred To Contact Pulmonary Diseases / Pulmonary Diagnoses Hospital discharge follow-up COPD exacerbation (HCC) Rhinovirus infection Exercise hypoxemia Tobacco use disorder COPD, moderate (HCC) Raven Agrawal MD [address] [place] [address] Referral ID Status Reason Start Date Expiration Date Visits Requested Visits Authorized [id number] Pending Review Specialty Services Required 11/27/[phone] Question Answer Referral Priority Within 10 days (routine) Primary Reason for Referral? Asthma/COPD Comments Hosp fu Reason for Visit * Reason Onset Date Comments Hospital Follow-Up [facility] d/c 11/24 Hospital Follow-Up 11/27/2022 Encounter Details Date Type Department Care Team Description 11/27/2022 Office Visit General Internal Medicine [facility] [address] [place] [address] Raven Agrawal MD [address] [place] [address] Hospital discharge follow-up*; COPD exacerbation (HCC); Rhinovirus infection; Hypomagnesemia; Exercise hypoxemia; Tobacco use disorder; MASHA on CPAP; Type 2 diabetes mellitus with diabetic neuropathy, without long-term current use of insulin (HCC); Still's disease of adult (HCC); Elevated hemoglobin (HCC); Rheumatoid arthritis involving multiple sites with positive rheumatoid factor ([facility]); COPD, moderate ([facility]) Allergies No known active allergiesdocumented as of this encounter (statuses as of 12/13/2022) Medications Medication Sig Dispensed Refills Start Date End Date Status VITAMIN D 2000 UNIT PO TABS one tablet daily] 0 Active KEVZARA 200 MG/1.14ML SOSY Injection every other week 0 8 Active Multiple Vitamin (MULTI-DAY) Tablet Take 1 Tab by mouth daily. 0 Active aspirin enteric coated 81 MG TBECIndications: Mixed dyslipidemia,Sub clavian artery stenosis, right ([facility]) Take 1 Tab by mouth [...] (3) MG/3ML Inhalation Solution (Duoneb)Indicati ons:COPD exacerbation ([facility]),Bronchitis , complicated Inhale 3 mL via nebulizer every 6 hours as needed for Wheezing. 120 mL 0 1 Active CPAP every night at bedtime . 0 Active Rosuvastatin Calcium 10 MG Oral Tablet (Crestor)Indicat ions:Type 2 diabetes mellitus with diabetic neuropathy, without long-term current use of insulin ([facility]),Mixed dyslipidemia TAKE 1 TABLET BY MOUTH EVERY DAY 90 Tablet 2 3 Active Clobetasol Propionate 0.05 % External Cream [...] 160-4.5 MCG/ACT Inhalation Aerosol (Symbicort)Indic ations:COPD, moderate ([facility]) INHALE 2 PUFFS BY MOUTH 2 TIMES A DAY. 10 g 5 3 Active DULoxetine HCl 60 MG Oral Capsule Delayed Release Particles (Cymbalta)Indica tions:Major depressive disorder with single episode, in remission ([facility]),Type 2 diabetes mellitus with diabetic neuropathy, without long-term current use of insulin ([facility]),Cervical spinal stenosis,Cervica l spondylosis TAKE 1 CAPSULE BY MOUTH IN THE MORNING 90 Capsule 1 3 Active Umeclidinium-Aliza anterol 62.5-25 MCG/ACT Inhalation Aerosol Powder Breath Activated (ANORO ellipta) Inhale 1 Puff by mouth in the morning. 0 3 Active Fluticasone-Umec lidin-Vilant 100-62.5-25 MCG/ACT Aerosol Powder Breath Activated (Trelegy Ellipta)Indicati ons:Hospital discharge follow-up,COPD exacerbation (HCC),Rhinovirus infection,COPD, moderate (HCC) Inhale 1 Puff by mouth in the morning. Start 11/27/2022 and stop symbicort (cancel Rx anoro ellipta). 60 Blister Dosing Unit 5 3 Active predniSONE 10 MG Oral Tablet (Deltasone)Indic ations:Hospital discharge follow-up,COPD exacerbation (HCC),Rhinovirus infection Take 3 tabs for 3 days, 2 tabs for 3 days 1 tab for 3 days 18 Tablet 0 3 Active Vitamin B-12 500 MCG Oral LozengeIndicatio ns:Type [...] Tablet 4 3 12/04/19 23 Discontinued(Ref ill) Azithromycin 250 MG Oral Tablet (Zithromax) Take 1 Tablet by mouth in the morning. 0 3 11/28/19 23 predniSONE 20 MG Oral Tablet (Deltasone) Take 1 Tablet by mouth in the morning and 1 Tablet before bedtime. 0 3 11/28/19 23 Hospital, Clinic, or Other Facility Administered Medication Ordered Dose Route Frequency Start Date End Date Status Albuterol Sulfate (Proventil) (5 MG/ML) 0.5% *conc* inhalation solution 2.5 mgIndications:COPD, moderate (HCC) 2.5 mg NEBULIZER PRN 02/09/2022 02/09/2023 Active Albuterol Sulfate (Proventil) (2.5 MG/3ML) 0.083% inhalation solution 2.5 mgIndications:COPD, moderate (HCC) 2.5 mg NEBULIZER PRN 02/09/2022 02/09/2023 Active documented as of this encounter (statuses as of 12/13/2022) Active Problems Problem Noted Date Type 2 diabetes mellitus wit h diabetic neuropathy, without long-term current use of insulin 10/06/2022 Mixed dyslipidemia 10/06/2022 COPD, group B, by GOLD 2017 classificati on 06/08/2022 Overview: Per COPD GOLD Classification Granulomatous lung disease 06/27/2021 Dense breast tissue on mammogram 019 Overview: 01/17; Tobacco use disorder 06/09/2018 Elevated hemoglobin 04/04/2018 Overview: 04/1951-TsAvte-htc EPO, ferritin,Tsat, neg JAK2 mutn LVH (left ventricular hypert rophy) due to hypertensive disease, without heart failure 12/27/2017 Overview: 06/1783-mxhe-xm98%, no WMabn,mild A Scl,gr 2 DD HTN, goal below 130/80 12/27/2017 Screen for colon cancer 12/27/2017 Overview: 02/15-sig tics-rpt 10 yrs History of Clostridium difficile infecti on 12/27/2017 MASHA on CPAP 12/27/2017 Hepatic steatosis 12/27/2017 Rheumatoid arthritis involvi ng multiple sites with positive rheumatoid factor 07/21/2017 Deviated nasal septum 07/12/2017 Immune thrombocytopenia 09/11/2015 Still's disease of adult 04/17/2015 Type 2 diabetes mellitus with hemoglobin A1c goal of less than 7.0% 12/16/2010 Overview: ICD-10 update of inactive term documented as of this encounter (statuses as of 12/13/2022) Resolved Problems Problem Noted Date Resolved Date COPD, group A, by GOLD 2017 classification 02/0906/11/2022 Overview: Per COPD GOLD Classification COPD, moderate 04/11/2019 02/12/2022 Overview: Per COPD GOLD Classification COPD, group B, by GOLD 2017 classification 11/0704/12/2019 Overview: Per COPD GOLD Classification COPD, moderate 12/27/2017 11/11/2018 Overview: Per COPD GOLD Classification Chronic nonspecific lung disease 08/16/2017 12/27/2017 Acute respiratory failure with hypoxia 8 12/27/2017 Rheumatoid arthritis with positive rheumatoid fa ctor 06/22/2017 07/21/2017 Undiagnosed cardiac murmurs 03/11/201105/31 #[id number]\\CORRONA\\ENEWMAN 04/12/2003 010 Overview: Renamed Per Clinical Trials Billing Project. Pt is a participant in the [facility] (Consortium of Rheumatology Researchers of [place]) national data collection study. For further information please call Dr Alban Del Real or Tata Meeks, RN, CCRC at [phone] [facility] RESEARCH OTHER*[id number] 04/12/2003 08/26/2009 Overview: Renamed Per Clinical Trials Billing Project. Pt is a participant in the [facility] (Consortium of Rheumatology Researchers of [place]) national data collection study. For further information please call Dr Alban Del Real or Tata Meeks, RN, CCRC at [phone] ABN CERVIX NEC-ANTEPART 11/24/2002 06/23/19 18 Elderly multigravida with an tepartum condition or complication 10/10/2002 06/22/2017 Arthritis, rheumatoid 06/22/2017 DIABETES-ANTEPARTUM 06/22/2017 documented as of this encounter (statuses as of 12/13/2022) Immunizations Name Administration Dates Next Due COVID-19 [...] (Menactra) 03/13/2018 Pneumococcal Conjugate Vacci ne, 20-valent ([id number]) 04/06/2022 SARS-COV-2 (COVID-19) Vaccine Unspecified 2021 SEASONAL [...] 0.6 oz pur e alcohol) rare 3/yr Food Insecurity Answer Date Recorded Within the past 12 months, y ou worried that your food would run out before you got money to buy more. Never true 01/03/2019 Within the past 12 months, t he food you bought just didn't last and you didn't have money to get more. Never true 01/03/2019 Sex Assigned at Date Recorded Female 06/28/2018 3:23 PM E DT Job Start Date Occupation Industry Not on file Not on file Not on file documented as of this encounter Last Filed Vital Signs Vital Sign Reading Time Taken Comments Blood Pressure 140/82 11/27/2022 9:07 AM EDT Pulse 61 11/27/2022 9:07 AM EDT Temperature 36.2 C (97.2 F) 11/27/2022 9:07 AM ED T Respiratory Rate - - Oxygen Saturation 97% 11/27/2022 9:07 AM EDT Inhaled Oxygen Concentration - - Weight 70.3 kg (155 lb) 11/27/2022 9:07 AM EDT Height - - Body Mass Index 26.61 10/06/2022 1:33 PM EDT documented in this encounter Progress Notes * Raven Agrawal MD - 11/27/2022 9:20 AM EDT SUBJECTIVE: Aura Hardy is a 57 year old female. Chief Complaint Patient presents with Hospital Follow-Up [facility] d/c 11/24/22 HPI: Patient presents today for hospital follow-up appointment. Reviewed available hospital records including history and physical, labs, imaging and discharge summary. Patient was admitted to the hospital 11/23/2022, discharged 11/24/22 for COPD exacerbation secondary to rhino virus. PMH-Type 2 diabetes with chronic neuropathy, HTN with LVH, dyslipidemia, low hdl, Stills disease, Rheumatoid arthritis And OA f/b Dr. 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, maybe traveling in the next few weeks to see her mother Had pneumonia vac at [facility]--get rec Refuses flu vaccine Immunization History Administered Date(s) Administered COVID-19 mRNA, [...] Vaccine (Menactra) 03/13/2018 Pneumococcal Conjugate Vaccine, 20-valent ([id number]) 04/06/2022 Pneumococcal Polysaccharide PPV23 (Pneumovax) 03/16/2005 SARS-COV-2 [...] 7.0% (HCC) E11.9 Still's disease of adult ([facility]) 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 ([facility]) D69.3 Deviated nasal septum J34.2 Rheumatoid arthritis involving multiple sites with positive rheumatoid factor ([facility]) M05.79 LVH (left ventricular hypertrophy) due to hypertensive disease, without heart failure I11.9 HTN, goal below 130/80 I10 Screen for colon cancer Z12.11 History of Clostridium difficile infection Z86.19 MASHA on CPAP G47.33, Z99.89 Hepatic steatosis K76.0 Elevated hemoglobin ([facility]) D58.2 Tobacco use disorder F17.200 Dense breast tissue on mammogram R92.2 Granulomatous lung disease ([facility]) J84.10 COPD, group B, by GOLD 2017 classification ([facility]) J44.9 Type 2 diabetes mellitus with diabetic neuropathy, without long-term current use of insulin ([facility]) E11.40 Mixed dyslipidemia E78.2 Outpatient Medications Prior to Visit Medication Sig Dispense Refill Azithromycin 250 MG Oral Tablet (Zithromax) Take 1 Tablet by mouth in the morning. predniSONE 20 MG Oral Tablet (Deltasone) Take 1 Tablet by mouth in the morning and 1 Tablet before bedtime. Umeclidinium-Vilanterol 62.5-25 MCG/ACT Inhalation Aerosol Powder Breath Activated (ANORO ellipta) Inhale 1 Puff by mouth in the morning. DULoxetine HCl 60 MG Oral Capsule Delayed Release Particles (Cymbalta) TAKE 1 CAPSULE BY MOUTH IN THE MORNING 90 Capsule 1 Budesonide-Formoterol Fumarate 160-4.5 MCG/ACT Inhalation Aerosol (Symbicort) INHALE 2 PUFFS BY MOUTH 2 TIMES A DAY. 10 g 5 Gabapentin 600 MG Oral Tablet (Neurontin) TAKE [...] up to two weeks.) 15 g 1 Rosuvastatin Calcium 10 MG Oral Tablet (Crestor) TAKE 1 TABLET BY MOUTH EVERY DAY 90 Tablet 2 CPAP every night at bedtime . Ipratropium-Albuterol [...] on box-use from 11/07/2022. 60 Tablet 4 [DISCONTINUED] Vitamin B-12 500 MCG Oral Lozenge one pill each day 1 Lozenge 0 Facility-Administered Medications Prior to Visit Medication Dose Route Frequency Provider Last Rate Last Admin Albuterol Sulfate (Proventil) (2.5 MG/3ML) 0.083% inhalation solution 2.5 mg 2.5 mg Nebulizer PRTERRENCE Zuniga 2.5 mg at 03/12/22 1036 Albuterol Sulfate (Proventil) (5 MG/ML) 0.5% *conc* inhalation solution 2.5 mg 2.5 mg Nebulizer TERRENCE Davis Last reviewed on 11/27/2022 9:07 AM by Tammie Eli LPN Review of patient's allergies indicates: No Known Allergies OBJECTIVE: BP 140/82 | Pulse 61 | Temp 36.2 C (97.2 F) (Tympanic) | Wt 70.3 kg (155 lb) | LMP 10/10/2014 (Exact Date) | SpO2 97% | BMI 26.61 kg/m | BSA 1.78 m PHYSICAL EXAM: General: alert, healthy, no distress, well nourished and well developed Ears: External ears normal, Canals clear, TM's Normal Nose: mild mucosal edema, no purulent discharge, no mucosal erythema, no sinus tenderness Oropharynx: no exudate, min erythema sites pnd Neck: supple, no adenopathy Heart: regular Rhythm and rate, no murmurs Lungs: diffuse end insp and faint exp rhonchi, no rales. ASSESSMENT/PLAN: Hospital discharge follow-up (Primary) - DISCH MED RECON CUR MED LIS - Ycgjlmvusde-Voeliqwmi-Npzmcf 100-62.5-25 MCG/ACT Aerosol Powder Breath Activated (Trelegy Ellipta); Inhale 1 Puff by mouth in the morning. Start 11/27/2022 and stop symbicort (cancel Rx anoro ellipta). - PULMONARY REFERRAL OP - MAGNESIUM; Future; Expected date: 11/27/2022 - predniSONE 10 MG Oral Tablet (Deltasone); Take 3 tabs for 3 days, 2 tabs for 3 days 1 tab for 3 days COPD exacerbation (HCC) - DISCH MED RECON CUR MED LIS - Lmsxbbahvmp-Cmqidxqzf-Hnbduk 100-62.5-25 MCG/ACT Aerosol Powder Breath Activated (Trelegy Ellipta); Inhale 1 Puff by mouth in the morning. Start 11/27/2022 and stop symbicort (cancel Rx anoro ellipta). - PULMONARY REFERRAL OP - PULSE OX W/ REST/EXERCISE, MULTIPLE (OP) - MAGNESIUM; Future; Expected date: 11/27/2022 - predniSONE 10 MG Oral Tablet (Deltasone); Take 3 tabs for 3 days, 2 tabs for 3 days 1 tab for 3 days Rhinovirus infection - DISCH MED RECON CUR MED LIS - Rcysyriwcej-Tnummgjhj-Lontrj 100-62.5-25 MCG/ACT Aerosol Powder Breath Activated (Trelegy Ellipta); Inhale 1 Puff by mouth in the morning. Start 11/27/2022 and stop symbicort (cancel Rx anoro ellipta). - PULMONARY REFERRAL OP - PULSE OX W/ REST/EXERCISE, MULTIPLE (OP) - predniSONE 10 MG Oral Tablet (Deltasone); Take 3 tabs for 3 days, 2 tabs for 3 days 1 tab for 3 days Hypomagnesemia - MAGNESIUM; Future; Expected date: 11/27/2022 Exercise hypoxemia - PULMONARY REFERRAL OP Tobacco use disorder - PULMONARY REFERRAL OP - PULSE OX W/ REST/EXERCISE, MULTIPLE (OP) MASHA on CPAP Type 2 diabetes mellitus with diabetic neuropathy, without long-term current use of insulin (HCC) Still's disease of adult (HCC) Elevated hemoglobin (HCC) Rheumatoid arthritis involving multiple sites with positive rheumatoid factor (HCC) COPD, moderate (HCC) - Cmddukjkvye-Wgzloibva-Czcuce 100-62.5-25 MCG/ACT Aerosol Powder Breath Activated (Trelegy Ellipta); Inhale 1 Puff by mouth in the morning. Start 11/27/2022 and stop symbicort (cancel Rx anoro ellipta). - PULMONARY REFERRAL OP - PULSE OX W/ REST/EXERCISE, MULTIPLE (OP) Pulse ox at rest 94% pulse 60, with exertion pulse ox 94%, pulse 78 Mg nml at 1.9 Follow Up: Return in about 24 days (around 12/21/2022), or if symptoms worsen or fail to improve, for Labs Today, Return with Physician. | For: Labs Today, Return with Physician | Check-out note: Tyree appt-willing to go to [place] (This note was completed using the dictation [...] with plan of care. Raven Agrawal MD 11/27/2022 documented in this encounter Nursing Notes * Tammie Eli LPN - 11/27/2022 9:07 AM EDT Chief Complaint Patient presents with Hospital Follow-Up [facility] d/c 11/24/22 documented in this encounter Plan of Treatment Upcoming Encounters Date Type Specialty Care Team Description 12/17/2022 Imaging Radiology 12/29/2022 Office Visit Internal Medicine Raven Agrawal MD [address] [facility] [place] [address] 04/09/2023 Office Visit Internal Medicine Raven Agrawal MD [address] [facility] [place] [address] 04/21/2023 Office Visit Cardiology Jonathon Smith MD [address] [facility] [place] [address] 05/24/2023 Cardiac Studies Cardiac Studies 05/24/2023 Office Visit Hematology Oncology Ftaimah Quintero CRNP [address] [place] [address] Scheduled Orders Name Type Priority Associated Diagnoses Orde r Schedule PULSE OX W/ REST/EXERCISE, MULTIPLE (OP) Procedures Routine COPD exacerbation (HCC) Rhinovirus infection Tobacco use disorder COPD, moderate (HCC) Ordered: 11/27/2022 Scheduled Procedures Name Priority Associated Diagnoses Date/Ti me COLONOSCOPY FLEXIBLE PROXIMA L DIAGNOSTIC Recall Screening for malignant neoplasm of colon Scheduled Referrals Name Type Priority Associated Diagnoses Orde r Schedule PULMONARY REFERRAL OP Referral Within 10 days (routine) Hospital discharge follow-up COPD exacerbation (HCC) Rhinovirus infection Exercise hypoxemia Tobacco use disorder COPD, moderate (HCC) Ordered: 11/27/2022 Health Maintenance Due Date Last Done Comments HPV/Co-Test 1996 Cologuard 09/13/2011 Fecal Occult Blood Test 09/13/2011 Sigmoidoscopy 09/13/2011 DISCUSS TOBACCO CESSATION (REFER TO SMARTSET #9234) 06/27/2022 06/27/2021, 06/13/2020 COVID-19 Vaccine ( season) 2022 01/07/2022, 03/25/2021, 03/24/2021, Additional history exists Influenza Vaccine (FLU shot) (#1) 2022 01/03/2019, 01/03/2019, 01/31/2013, Additional history exists Mammogram 12/03/2022 12/03/2021, 09/29, 09/26/2020, Additional history exists DIABETES-EYE EXAM 01/15/2023 01/15/2022, [...] IN PAST YEAR FOR COPD 11/28/2023 11/27/2022 Lipid Panel 10/06/2027 10/05/2022, 020 04/2022, 10/21/2021, Additional history exists Colonoscopy 02/03/2028 02/02/2018, 02/02/2018 Colorectal Cancer Screening 02/03/2028 DTaP,Tdap,and Td Vaccines (5 - Td or Tdap) 10/06/2032 10/06/2022, 11/17/2011, 11/17/2011, Additional history exists Hepatitis B Completed 08/09/2013, 010 09/2013, 01/31/2013 Hepatitis C Screening Completed 08/12/2015 MENINGOCOCCAL (MENACTRA/MENVEO) Aged Out 03/13/2018 No longer eligible based on patient's age to complete this topic Zoster Vaccines Completed 05/08/2019, 01/17/2019 Alpha-1 Antitrypsin Completed 09/20/2020 LUNG CANCER SCREENING - USE SMARTSET 80788 Completed 03/23/2022, 09/16/2021, 09/16/2020, Additional history exists Pneumococcal Vaccine: Pediatrics (0 to 5 Years) and At-Risk Patients (6 to 64 Years) Completed 04/06/2022, 03/16/2005 GARDASIL-HPV IMMUNIZATION SERIES Aged Out No longer eligible based on patient's age to complete this topic documented as of this encounter Medical Devices Not on filedocumented as of this encounter Results * MAGNESIUM (11/27/2022 10:11 AM EDT) Magnesium 1.9 1.5 - 2.6 mg/dL 11/27/2022 11:30 AM EDT [facility] 56-02 Blood Venous blood specimen / Unknown Venipuncture / Unknown 11/27/2022 10:11 AM EDT 11/27/2022 10:11 AM EDT Raven Agrawal MD LAB BLOOD ORDERABLES [facility] [address] [place] [address] documented in this encounter Visit Diagnoses Diagnosis Hospital discharge follow-up- Primary Other follow-up examination COPD exacerbation (HCC) Obstructive chronic bronchitis with exacerbation Rhinovirus infection Rhinovirus infection in conditions classified elsewhere and of unspecified site Hypomagnesemia Disorders of magnesium metabolism Exercise hypoxemia Hypoxemia Tobacco use disorder MASHA on CPAP Obstructive sleep apnea (adult) (pediatric) Type 2 diabetes mellitus with diabetic neuropathy, without long-term current use of insulin (HCC) Still's disease of adult (HCC) Other rheumatoid arthritis with visceral or systemic involvement Elevated hemoglobin (HCC) Other hemoglobinopathies Rheumatoid arthritis involving multiple sites with positive rheumatoid factor (HCC) COPD, moderate (HCC) Chronic airway obstruction, not elsewhere classified documented in this encounter Care Teams Passport Application Examiner Relationship Specialty Start Date End Date Raven Agrawal MD [address] [place] [address] PCP - General Internal Medicine 12/27/17 documented as of this encounter"
--- OUTSIDE RECORDS SUMMARY | 2023-05-29 12:43 | External Medical Summary | Summary of Care ---
Author Name Unknown Organization [facility] Address [address] [place] [address] Phone [phone] Care Team Providers Care Bow Maker Custom Name Role Phone Raven Agrawal MD Primary Care Provider Reason for Visit * Reason Comments eRx-Medication Refill Encounter Details Date Type Department Care Team (Late st Contact Info) Description 12/23/2022 Refill General Internal Medicine [facility] [place] [address] [facility] [place] [address] Raven Agrawal MD [address] [facility] [address] [facility] [address] Type 2 diabetes mellitus with diabetic neuropathy, without long-term current use of insulin ([facility]); Mixed dyslipidemia Allergies No known active allergiesdocumented as of this encounter (statuses as of 12/23/2022) Medications Medication Sig Dispensed Refills Start Date [...] A1c goal of less than 7.0% ([facility]),Type 2 diabetes mellitus with diabetic neuropathy, unspecified ([facility]) TAKE 1 TABLET BY MOUTH TWICE [...] BEFORE BEDTIME 360 Tablet 1 3 Active Budesonide-Formot rudolph Fumarate 160-4.5 MCG/ACT Inhalation [...] THE MORNING 90 Capsule 1 3 Active Umeclidinium-Inna nterol 62.5-25 MCG/ACT Inhalation Aerosol Powder Breath Activated (ANORO ellipta) Inhale 1 Puff by mouth in the morning. 0 3 Active Fluticasone-Umecl idin-Vilant 100-62.5-25 MCG/ACT Aerosol Powder Breath Activated (Trelegy Ellipta)Indicatio ns:Hospital discharge follow-up,COPD exacerbation (HCC),Rhinovirus infection,COPD, moderate (HCC) Inhale 1 Puff by mouth in the morning. Start 11/27/2022 and stop symbicort (cancel Rx anoro ellipta). 60 Blister Dosing Unit 5 3 Active predniSONE 10 MG Oral Tablet (Deltasone)Indica tions:Hospital discharge follow-up,COPD exacerbation (HCC),Rhinovirus infection Take 3 tabs for 3 days, 2 tabs for 3 days 1 tab for 3 days 18 Tablet 0 3 Active Varenicline Tartrate 1 MG Oral TabletIndications :Tobacco use disorder,COPD, moderate (HCC) Take 1 Tablet by mouth in the morning and 1 Tablet before bedtime. As directed on box-use from 11/07/2022. 60 Tablet 4 3 Active Rosuvastatin Calcium 10 MG Oral Tablet (Crestor)Indicati ons:Type 2 diabetes mellitus with diabetic neuropathy, without long-term current use of insulin (HCC),Mixed dyslipidemia TAKE 1 TABLET BY MOUTH EVERY DAY 90 Tablet 2 3 Active Rosuvastatin Calcium 10 MG Oral Tablet (Crestor)Indicati ons:Type 2 diabetes mellitus with diabetic neuropathy, without long-term current use of insulin (HCC),Mixed dyslipidemia TAKE 1 TABLET BY MOUTH EVERY DAY 90 Tablet 2 3 12/24/19 23 Discontinued Hospital, Clinic, or Other Facility [...] as of this encounter (statuses as of 12/23/2022) Active Problems Problem Noted Date Diagnosed Date Type 2 diabetes mellitus wit h diabetic neuropathy, without long-term current use of insulin 10/06/2022 Mixed dyslipidemia 10/06/2022 COPD, group B, by GOLD 2017 classification 06/08 Overview: Per COPD GOLD Classification Granulomatous lung disease 06/27/2021 Dense breast tissue on mammogram 01/06/2019 Overview: 01/17; Tobacco use disorder 06/09/2018 Elevated hemoglobin 04/04/2018 Overview: 04/1967-FsOutl-bsm EPO, ferritin,Tsat, neg JAK2 mutn LVH (left ventricular hypert rophy) due to hypertensive disease, without heart failure 12/27/2017 Overview: 06/1761-xjzq-lx00%, no WMabn,mild A Scl,gr 2 DD HTN, [...] as of this encounter (statuses as of 12/23/2022) Resolved Problems Problem Noted Date Diagnosed Date [...] Real or Tata Meeks, RN, CCRC at [phone] [facility] RESEARCH OTHER*[id number] 04/12/2003 08/26/2009 Overview: Renamed Per Clinical Trials Billing Project. Pt is a participant in the [employer] (Consortium of Rheumatology Researchers of [place]) national data collection study. For further information please call Dr Alban Del Real or Tata Meeks, RN, CCRC at [phone] ABN CERVIX NEC-ANTEPART 11/24/200205/31 Elderly multigravida with an tepartum condition or complication 10/10/2002 06/22/2017 Arthritis, rheumatoid 2017 DIABETES-ANTEPARTUM 06/23/19 18 documented as of this encounter (statuses as of 12/23/2022) Immunizations Name Administration Dates Next Due COVID-19 [...] (Menactra) 03/13/2018 Pneumococcal Conjugate Vacci ne, 20-valent ([id number]) 04/06/2022 SARS-COV-2 (COVID-19) Vaccine Unspecified 2021 SEASONAL [...] encounter Miscellaneous Notes * Telephone Encounter - Sherri Hylton [facility] - 12/23/2022 3:31 PM EDTSigned Prescriptions: Disp Refills Rosuvastatin Calcium 10 MG Oral Tablet (Cr*90 Tab*2 Sig: TAKE 1 TABLET BY MOUTH EVERY DAYAuthorizing Provider: Francis AGRAWAL User: SHERRI HYLTON--------- documented in this encounter Plan of Treatment Upcoming Encounters Date Type Department Care Team (Late st Contact Info) Description 12/29/2022 8:20 AM EDT Office Visit General Internal Medicine [facility] [address] [place], [place] [address] Raven Agrawal MD [address] [facility] [place], [place] [address] 04/09/2023 10:40 AM EST Office Visit General Internal Medicine [facility] [address] [place] [address] Raven Agrawal MD [address] [place] [address] 04/21/2023 4:00 PM EST Office Visit Cardiology, [facility] [address] [place] [address] Jonathon Smith MD [address] [place] [address] 05/24/2023 11:00 AM EDT Cardiac Studies Cardiac Studies, [facility] [address] [place] [address] 05/24/2023 3:00 PM EDT Office Visit Hematology/Oncology [facility] [address] Fatimah Quintero CRNP [address] [facility] [place] [id number] Scheduled Procedures Name Priority Associated Diagnoses Date/Ti [...] FOR COPD 11/28/2023 11/27/2022 Mammogram 12/18/2023 12/17/2022, 06/2021, 10/09/2020, Additional history exists Lipid Panel [...] 09/20/2020 LUNG CANCER SCREENING - USE SMARTSET 56062 Completed 03/23/2022, 09/16/2021, 09/16/2020, Additional history exists Pneumococcal Vaccine: Pediatrics (0 to 5 Years) and At-Risk Patients (6 to 64 Years) Completed 04/06/2022, 03/16/2005 GARDASIL-HPV IMMUNIZATION SERIES Aged Out No longer eligible based on patient's age to complete this topic documented as of this encounter Medical Devices Not on filedocumented as of this encounter Visit Diagnoses Diagnosis Type 2 diabetes mellitus with diabetic neuropathy, without long-term current use of insulin (HCC) Mixed dyslipidemia Mixed hyperlipidemia documented in this encounter Care Teams Bow Maker Custom Relationship Specialty Start Date End Date Nghia, Raven, MD [address] [facility], [place] [id number] PCP - General Internal Medicine 12/27/17 documented as of this encounter
--- OUTSIDE RECORDS SUMMARY | 2023-05-29 12:43 | External Medical Summary | Summary of Care ---
Author Name Unknown Organization [facility] Address [address] [place] [address] Phone [phone] Care Team Providers Care Child Care Name Role Phone Raven Agrawal MD Primary Care Provider [phone] Reason for Visit * Reason Onset Date Comments Medication Refill 12/03/2022 Encounter Details Date Type Department Care Team Description 12/03/2022 Refill General Internal Medicine [facility] [place] [address] [facility] [address] [place] [address] Raven Agrawal MD [address] [facility] [place] [address] Tobacco use disorder; COPD, moderate (HCC) Allergies No known active allergiesdocumented as of this encounter (statuses as of 12/04/2022) Medications Medication Sig Dispensed Refills Start Date [...] BY MOUTH EVERY DAY 90 Tablet 2 03/21/2022 Active Clobetasol Propionate 0.05 % External Cream [...] BEFORE BEDTIME 360 Tablet 1 10/06/2022 Active Budesonide-Formot rudolph Fumarate 160-4.5 MCG/ACT Inhalation Aerosol (Symbicort)Indica tions:COPD, moderate (HCC) INHALE 2 PUFFS BY MOUTH 2 TIMES A DAY. 10 g 5 10/06/2022 Active DULoxetine HCl 60 MG Oral Capsule Delayed Release Particles (Cymbalta)Indicat ions:Major depressive disorder with single episode, in remission (HCC),Type 2 diabetes mellitus with diabetic neuropathy, without long-term current use of insulin (HCC),Cervical spinal stenosis,Cervical spondylosis TAKE 1 CAPSULE BY MOUTH IN THE MORNING 90 Capsule 1 11/03/2022 Active Umeclidinium-Inna nterol 62.5-25 MCG/ACT Inhalation Aerosol Powder Breath Activated (ANORO ellipta) Inhale 1 Puff by mouth in the morning. 0 11/24/2022 Active Fluticasone-Umecl idin-Vilant 100-62.5-25 MCG/ACT Aerosol Powder Breath Activated (Trelegy Ellipta)Indicatio ns:Hospital discharge follow-up,COPD exacerbation (HCC),Rhinovirus infection,COPD, moderate (HCC) Inhale 1 Puff by mouth in the morning. Start 11/27/2022 and stop symbicort (cancel Rx anoro ellipta). 60 Blister Dosing Unit 5 11/27/2022 Active predniSONE 10 MG Oral Tablet (Deltasone)Indica tions:Hospital discharge follow-up,COPD exacerbation (HCC),Rhinovirus infection Take 3 tabs for 3 days, 2 tabs for 3 days 1 tab for 3 days 18 Tablet 0 11/27/2022 Active Varenicline Tartrate 1 MG Oral TabletIndications :Tobacco use disorder,COPD, moderate (HCC) Take 1 Tablet by mouth in the morning and 1 Tablet before bedtime. As directed on box-use from 11/07/2022. 60 Tablet 4 12/04/2022 Active Varenicline Tartrate 1 MG Oral TabletIndications :Tobacco use disorder,COPD, moderate (HCC) Take 1 Tablet by mouth in the morning and 1 Tablet before bedtime. As directed on box-use from 11/07/2022. 60 Tablet 4 11/07/2022 3 Discontinue d(Refill) Hospital, Clinic, or Other Facility Administered Medication Ordered Dose Route Frequency Start Date End Date Status Albuterol Sulfate (Proventil) (5 MG/ML) 0.5% *conc* inhalation solution 2.5 mgIndications:COPD, moderate (HCC) 2.5 mg NEBULIZER PRN 02/09/2022 02/09/2023 Active Albuterol Sulfate (Proventil) (2.5 MG/3ML) 0.083% inhalation solution 2.5 mgIndications:COPD, moderate (HCC) 2.5 mg NEBULIZER PRN 02/09/2022 02/09/2023 Active documented as of this encounter (statuses as of 12/04/2022) Active Problems Problem Noted Date Type 2 diabetes mellitus wit h diabetic neuropathy, without long-term current use of insulin 10/06/2022 Mixed dyslipidemia 10/06/2022 COPD, group B, by GOLD 2017 classificati on 06/08/2022 Overview: Per COPD GOLD Classification Granulomatous lung disease 06/27/2021 Dense breast tissue on mammogram 019 Overview: 01/17; Tobacco use disorder 06/09/2018 Elevated hemoglobin 04/04/2018 Overview: 04/1978-WcLshx-ltx EPO, ferritin,Tsat, neg JAK2 mutn LVH (left ventricular hypert rophy) due to hypertensive disease, without heart failure 12/27/2017 Overview: 06/1710-nleo-jh02%, no WMabn,mild A Scl,gr 2 DD HTN, [...] as of this encounter (statuses as of 12/04/2022) Resolved Problems Problem Noted Date Resolved Date [...] ctor 06/22/2017 07/21/2017 Undiagnosed cardiac murmurs 03/11/201105/31 #[id number]\[employer]\ENEWMAN 04/12/2003 010 Overview: Renamed Per Clinical Trials Billing Project. Pt is a participant in the [employer] (Consortium of Rheumatology Researchers [place]) national data collection study. For further information please call Dr Alban Del Real or Tata Meeks, RN, CCRC at [phone] [facility] RESEARCH OTHER*[id number] 04/12/2003 08/26/2009 Overview: Renamed Per Clinical Trials Billing Project. Pt is a participant in the [employer] (Consortium of Rheumatology Researchers [place]) national data collection study. For further information please call Dr Alban Del Real or Tata Meeks, RN, CCRC at [phone] ABN CERVIX NEC-ANTEPART 11/24/2002 06/23/19 18 Elderly multigravida with an tepartum condition or complication 10/10/2002 06/22/2017 Arthritis, rheumatoid 06/22/2017 DIABETES-ANTEPARTUM 06/22/2017 documented as of this encounter (statuses as of 12/04/2022) Immunizations Name Administration Dates Next Due COVID-19 [...] (Menactra) 03/13/2018 Pneumococcal Conjugate Vacci ne, 20-valent ([id number]) 04/06/2022 SARS-COV-2 (COVID-19) Vaccine Unspecified 2021 SEASONAL [...] encounter Miscellaneous Notes * Telephone Encounter - Salvador Resendiz MD - 12/04/2022 10:04 AM EDTSigned Prescriptions: Disp Refills Varenicline Tartrate 1 MG Oral Tablet 60 Tab*4 Sig: Take 1 Tablet by mouth in the morning and 1 Tablet before bedtime. As directed on box-use from 11/07/2022. Authorizing Provider: SALVADOR RESENDIZ * Telephone Encounter - Marshall Newman LPN - 12/04/2022 9:39 AM EDT Pending Prescriptions: Disp Refills Varenicline Tartrate 1 MG Oral Tablet 60 Tab*4 Sig: Take 1 Tablet by mouth in the morning and 1 Tablet before bedtime. As directed on box-use from 11/07/2022. * Telephone Encounter - Marshall Newman LPN - 12/04/2022 9:30 AM EDT Request for change from 30 to 90 day script. Patient has 4 months left on current prescription. * Telephone Encounter - Gisele Guzman - 12/03/2022 3:00 PM EDT 90 day Did you pend patient's preferred pharmacy and medication before forwarding?yes Pharmacy: [facility] [id number] [place] [address] Pending Prescriptions: Disp Refills Varenicline Tartrate 1 MG Oral Tablet 60 Tab*4 Sig: Take 1 Tablet by mouth in the morning and 1 Tablet before bedtime. As directed on box-use from 11/07/2022. Last Visit: 11/27/2022 (in office), 02/13/2020 (telemedicine) Next Visit: 12/29/2022 If no future appointments scheduled, and last appointment is greater than a year ago, please schedule patient for a follow-up appointment Last date the medication was ordered: 11/07/22 Is this request for a controlled substance?No [...] Visit Internal Medicine Raven Agrawal MD [address] [facility] [place] [address] 04/09/2023 Office Visit Internal Medicine Raven Agrawal MD [address] [facility] [place] [address] 04/21/2023 Office Visit Cardiology Jonathon Smith MD [address] [place] [address] 05/24/2023 Cardiac Studies Cardiac Studies 05/24/2023 Office Visit Hematology Oncology Fatimah Quintero CRNP [address] [place] [id number] Scheduled Procedures Name Priority Associated Diagnoses Date/Ti me COLONOSCOPY FLEXIBLE PROXIMA L DIAGNOSTIC Recall Screening for malignant neoplasm of colon Health Maintenance Due Date Last Done Comments HPV/Co-Test 1996 Cologuard 09/13/2011 Fecal Occult Blood Test 09/13/2011 Sigmoidoscopy 09/13/2011 DISCUSS TOBACCO CESSATION (REFER TO SMARTSET #9943) 06/27/2022 06/27/2021, 06/13/2020 COVID-19 Vaccine ( season) [...] 09/20/2020 LUNG CANCER SCREENING - USE SMARTSET 28165 Completed 03/23/2022, 09/16/2021, 09/16/2020, Additional history exists [...] classified documented in this encounter Care Teams Child Care Relationship Specialty Start Date End Date Raven Agrawal MD [address] [facility] [place] [address] PCP - General Internal Medicine 12/27/17 documented as of this encounter
--- OUTSIDE RECORDS SUMMARY | 2023-05-29 12:43 | External Medical Summary | Summary of Care ---
Author Name Unknown Organization [facility] Address [address] [place] [address] Phone [phone] Care Team Providers Care Clay Shop Supervisor Name Role Phone Raven Agrawal MD Primary Care Provider [phone] Reason for Visit * Reason Onset Date Comments Test Results 10/23/2022 Encounter Details Date Type Department Care Team Description 10/23/2022 Telephone General Internal Medicine [facility] [place] [address] [facility] [place] [address] Raven Agrawal MD [address] [facility] [address] [facility] [address] Test Results Allergies No known active allergiesdocumented as of this encounter (statuses as of 12/19/2022) Medications Medication Sig Dispensed Refills Start Date [...] long-term current use of insulin ([facility]),Mixed dyslipidemia TAKE 1 TABLET BY [...] goal of less than 7.0% ([facility]),Type 2 diabetes mellitus with diabetic neuropathy, unspecified ([facility]) TAKE 1 TABLET BY MOUTH TWICE A DAY 180 Tablet 1 3 Active Lisinopril 10 MG Oral Tablet (Prinivil)Indica tions:Type 2 diabetes mellitus with hemoglobin A1c goal of less than 7.0% ([facility]),LVH (left ventricular hypertrophy) due to [...] of insulin (HCC),Cervical spinal stenosis,Cervica l spondylosis Take 1 Capsule by mouth in the morning. --chg formulation 10/30/2021( on 60mg/d since 09/29/21). 90 Capsule 1 3 11/04/19 23 Discontinued Varenicline Tartrate 1 MG Oral [...] 1 Lozenge 0 3 11/28/19 23 Discontinued Hospital, Clinic, or Other Facility [...] as of this encounter (statuses as of 12/19/2022) Active Problems Problem Noted Date Type 2 diabetes mellitus wit h diabetic neuropathy, without long-term current use of insulin 10/06/2022 Mixed dyslipidemia 10/06/2022 COPD, group B, by GOLD 2017 classificati on 06/08/2022 Overview: Per COPD GOLD Classification Granulomatous lung disease 06/27/2021 Dense breast tissue on mammogram 019 Overview: 01/17; Tobacco use disorder 06/09/2018 Elevated hemoglobin 04/04/2018 Overview: 04/1969-OyQjoq-zyf EPO, ferritin,Tsat, neg JAK2 mutn LVH (left ventricular hypert rophy) due to hypertensive disease, without heart failure 12/27/2017 Overview: 06/1726-dfmh-vp15%, no WMabn,mild A Scl,gr 2 DD HTN, [...] as of this encounter (statuses as of 12/19/2022) Resolved Problems Problem Noted Date Resolved Date [...] Real or Tata Meeks, RN, CCRC at [phone] [facility] RESEARCH OTHER*[id number] 04/12/2003 08/26/2009 Overview: Renamed Per Clinical Trials Billing Project. Pt is a participant in the [facility] (Consortium of Rheumatology Researchers of [place]) national data collection study. For further information please call Dr Alban Del Real or Tata Meeks, RN, CCRC at [phone] ABN CERVIX NEC-ANTEPART 11/24/2002 06/23/19 18 Elderly multigravida with an tepartum condition or complication 10/10/2002 06/22/2017 Arthritis, rheumatoid 06/22/2017 DIABETES-ANTEPARTUM 06/22/2017 documented as of this encounter (statuses as of 12/19/2022) Immunizations Name Administration Dates Next Due COVID-19 [...] (Menactra) 03/13/2018 Pneumococcal Conjugate Vacci ne, 20-valent ([id number]) 04/06/2022 Pneumococcal Polysaccharide PPV23 (Pneumovax) 03/16/2005 SARS-COV-2 [...] encounter Miscellaneous Notes * Telephone Encounter - Blessing Carlisle CMA - 12/19/2022 4:37 PM EDT Myg sent to patient * Telephone Encounter - Marshall Newman LPN - 10/23/2022 10:52 AM EDT Provider to address: Raven Agrawal MD Reason for Call: Test Results Contact: Telephone Call Contact Type: Test Results Outcome: Left message for patient to return call. Total Time including non face to face (minutes): 5 * Telephone Encounter - Marshall Newman LPN - 10/23/2022 10:52 AM EDT ----- Message from Raven Agrawal MD sent at 10/20/2022 12:18 AM EDT ----- Normal labs except potassium was 5.2, previously normal, A1c 6.9%, normal B12, ALT, LDL. -follow low potassium diet -Repeat Fasting labs 2-5 days before next Appointment. documented in this encounter Plan of Treatment Upcoming Encounters Date Type Specialty Care Team Description 12/29/2022 Office Visit Internal Medicine Raven Agrawal MD [address] [place] [address] 04/09/2023 Office Visit Internal Medicine Raven Agrawal MD [address] [place] [address] 04/21/2023 Office Visit Cardiology Jonathon Smith MD [address] [place] [address] 05/24/2023 Cardiac Studies Cardiac Studies 05/24/2023 Office Visit Hematology Oncology Fatimah Quintero CRNP [address] [place] [address] Scheduled Procedures Name Priority Associated Diagnoses Date/Ti [...] COPD 11/28/2023 11/27/2022 Lipid Panel 10/06/2027 10/05/2022, 04/2022, 10/21/2021, Additional [...] 09/20/2020 LUNG CANCER SCREENING - USE SMARTSET 80663 Completed 03/23/2022, 09/16/2021, 09/16/2020, Additional history exists Pneumococcal Vaccine: Pediatrics (0 to 5 Years) and At-Risk Patients (6 to 64 Years) Completed 04/06/2022, 03/16/2005 GARDASIL-HPV IMMUNIZATION SERIES Aged Out No longer eligible based on patient's age to complete this topic documented as of this encounter Medical Devices Not on filedocumented as of this encounter Care Teams Clay Shop Supervisor Relationship Specialty Start Date End Date Raven Agrawal MD [address] [place] [address], [place] [address] PCP - General Internal Medicine 12/27/17 documented as of this encounter
[2023-05-29] MEDS: ACETAMINOPHEN 1,000 MG/100 ML VIAL IV STA (13:18)
[2023-05-29] MEDS: SODIUM CHLORIDE 0.9% 1,000 ML IV SCH (13:20)
[2023-05-29 13:21] LABS: Appearance Urine Clear (Clear); Bilirubin Urine Negative (Negative); Blood Urine Negative (Negative); Color Urine Yellow; Glucose Urine UA Negative (Negative); Ketones Urine Negative (Negative); Leukocyte Esterase Urine Negative (Negative); Nitrite Urine Negative (Negative); Protein Urine Negative (Negative); Specific Gravity Urine 1.013 (1.000-1.030); Urobilinogen Urine Negative (Negative); pH Urine 6.5 (4.5-7.5)
--- NOTE | 2023-05-29 13:41 | XRay Report ---
XR chest 1V portable HISTORY: Sepsis COMPARISON: Chest 11/23/2022. FINDINGS: No pneumothorax. No pleural effusions. No focal lung consolidations to suggest a pneumonia. No evidence for pulmonary edema. The heart remains enlarged. There are calcifications within the aor tic knob. No acute fractures. IMPRESSION: Stable cardiomegaly. Otherwise, no acute process within the chest. ACT 112: Negative or not required by law. Electronically signed by: Rlyey Hankins M.D. 05/29/2023 1:40 PM
[2023-05-29 13:45] LABS: Basophils # (auto) 0.01 K/uL (0.00-0.20); Basophils % (auto) 0.2 %; Eosinophils # (auto) 0.25 K/uL (0.00-0.50); Hematocrit (blood only) 39.6 % (37.0-47.0); Immature Granulocytes # (auto) 0.01 K/uL (0.01-0.20); Immature Granulocytes % (auto) 0.2 %; Lymphocytes # (auto) 0.73 K/uL (1.20-3.40); Lymphocytes % (auto) 11.6 %; Mean Corpuscular Hemoglobin 28.3 pg (25.0-34.0); Mean Corpuscular Hgb Conc 32.8 g/dL (32.0-36.0); Mean Corpuscular Volume 86.3 fL (80.0-100.0); Mean Platelet Volume 10.4 fL (9.4-12.4); Monocytes % (auto) 6.4 %; Neutrophils # (auto) 4.88 K/uL (1.40-6.50); Neutrophils % (auto) 77.6 %; Platelet Count 182 K/uL (130-400); RDW Coefficient of Variation 14.5 % (11.5-14.5); RDW Standard Deviation 45.5 fL (36.4-46.3); Red Blood Count 4.59 M/uL (4.20-5.40); White Blood Count 6.28 K/ul (4.8-10.8)
[2023-05-29 14:03] LABS: BUN Creatinine Ratio 10.2 (10-20); Bilirubin Direct 0.1 mg/dl (0-0.2); Bilirubin,Total 0.4 mg/dl (0.2-1.0); Calcium 8.9 mg/dl (8.6-10.3); Creatinine Clr Calc Pharmacy 61.2 ml/min; Est GFR (African American) 74.7 ml/min; Est GFR (Non-African American) 64.5 ml/min; Magnesium 1.6 mg/dl (1.7-2.4); Potassium 3.8 mmol/L (3.5-5.1); Total Protein 7.1 gm/dl (6.0-8.3)
[2023-05-29 14:08] LABS: Troponin I High Sensitivity 8.4 pg/ml (0-14)
[2023-05-29 14:24] LABS: Adenovirus PCR Not Detected (NotDetected); Bordetella parapertussis PCR Not Detected (NotDetected); Bordetella pertussis PCR Not Detected (NotDetected); Chlamydia pneumoniae PCR Not Detected (NotDetected); Coronavirus 229E PCR Not Detected (NotDetected); Coronavirus CoV-2 (COVID19)PCR Not Detected (NotDetected); Coronavirus HKU1 PCR Not Detected (NotDetected); Coronavirus NL63 PCR Not Detected (NotDetected); Coronavirus OC43PCR Not Detected (NotDetected); Human Metapneumovirus PCR Not Detected (NotDetected); Influenza A PCR Not Detected (NotDetected); Influenza B PCR Not Detected (NotDetected); Mycoplasma pneumoniae PCR Not Detected (NotDetected); Parainfluenza Virus 1 PCR Not Detected (NotDetected); Parainfluenza Virus 2 PCR Not Detected (NotDetected); Parainfluenza Virus 3 PCR Not Detected (NotDetected); Parainfluenza Virus 4 PCR Not Detected (NotDetected); Respiratory Syncytial VirusPCR Not Detected (NotDetected); Rhinovirus/Enterovirus PCR Not Detected (NotDetected)
[2023-05-29] MEDS: OPTIRAY 320 100ml IV ONE (14:44)
--- NOTE | 2023-05-29 15:16 | CT Scan Report ---
ABDOMEN AND PELVIS CT WITH IV CONTRAST CT DOSE: 1000.52 mGy.cm HISTORY: sepsis, UTI, recent trauma/pel fx TECHNIQUE: Multiaxial CT images of the abdomen and pelvis were performed following the use of intrave nous contrast. A dose lowering technique was utilized adhering to the principles of ALARA. COMPARISON STUDY: Abdomen and pelvis CT 05/21/2021. FINDINGS: Mild dependent changes seen at the lung bases. Mild interlobular septal thickening suggesti ve of mild congestive change. The heart is mildly enlarged. No pneumoperitoneum. No pneumatosis. Ther e are healing left pubic ring fractures and a healing right superior pubic ramus fracture. Patchy scl erosis within the right sacral wing consistent with a healing fracture. There is a healing nondisplac ed left L3 transverse process fracture. There is an old, healed right posterior ninth rib fracture. R ight gluteal subcutaneous fat stranding/contusion. No evidence for a pelvic hematoma. The liver, gall bladder, pancreas, and adrenal glands unremarkable. The main portal vein is patent. There are few pun ctate calcified granulomas within the spleen. The kidneys enhance normally. No hydronephrosis. No ret roperitoneal hematoma or lymphadenopathy. Moderate calcified plaque within the normal caliber abdomin al aorta. No pelvic free fluid. Mild bladder wall thickening. The uterus and adnexa are unremarkable. No bowel wall thickening or obstruction. Colonic diverticulosis. No evidence for acute diverticuliti s. Normal appendix. IMPRESSION: 1. Healing bilateral pubic bone and right sacral fractures as described above. 2. No acute fractures identified. 3. Cardiomegaly with mild congestive change. 4. Mild bladder wall thickening. This may represent a cystitis. 5. No bowel wall thickening or obstruction. ACT 112: Negative or not required by law. Electronically signed by: Ryley Hankins M.D. 05/29/2023 3:14 PM
--- NOTE | 2023-05-29 17:02 | History & Physical Report ---
Date of Service May 29, 2023 Assessment & Plan (1) UTI (urinary tract infection): Plan: Was diagnosed with UTI last Wednesday with Klebsiella pneumoniae Received Bactrim DS for 3 days Continued fever with smelly urine Likely has partially treated UTI, urine has been negative for any infection but it will be sent for culture and blood culture was sent Started with intravenous ceftriaxone Ongoing low-grade fever She has been minimally mobile following the multiple injury Will get ultrasound of the lower extremities to rule out DVTs (2) Multiple traumatic injuries within prior month: Plan: Fall with loss of consciousness about 1 month ago Multiple fractures involving the pelvis, left tibial plate to and also noted to have subarachnoid hemorrhage Was transferred to [facility] [place] and has been out from rehab about 1 week ago Noted to have foul smell of the urine and was seen by PCP on of this month Has had multiple pelvic fracture including pelvic MRI Left tibial plateau fracture Subarachnoid hemorrhage (3) COPD (chronic obstructive pulmonary disease): Plan: Will continue current medications No signs and or symptoms of exacerbation (4) Hypertensive heart disease: Plan: Blood pressure remains stable and will continue current medications (5) Hypertension: (6) Rheumatoid arthritis: Plan: No acute arthritis at this time (7) Type 2 diabetes mellitus: Plan: Will put her on sliding scale insulin coverage (8) Sleep apnea: (9) History of subarachnoid hemorrhage: Plan: Has been on aspirin and will continue Will not give any anticoagulation at this time DVT prophylaxis will given in the form of SCDs DVT prophylaxis SCDs for now CODE STATUS Full History of Present Illness Chief Complaint: Increasing weakness with fever for the last 2 days Primary Care Provider: Raven Agrawal MD She is a 57 years old female with significant past medical history of type 2 diabetes, stills disease of adult, rheumatoid arthritis involving multiple sites, granulomatous lung disease, COPD, immune thrombocytopenia, LVH secondary to hypertensive heart disease without heart failure, hypertension, MASHA and mixed hyperlipidemia apparently has had a fall about 1 month ago with significant fractures involving left tibial plate to, multiple pelvic fractures and also head injury with subarachnoid hemorrhage and loss of consciousness when she was transferred to [facility] and has been in rehab following that until 1 week before. She has been at home with her daughter and was seen by her primary care physician on Wednesday and noted to have UTI secondary to Klebsiella pneumonia. She was given Bactrim for 3 days course without any improvement of her symptoms and with continued fever and weakness she was brought to emergency room today. She complains to fever and chills but no documented temperature, her urine remains foul-smelling and she remains generally weak and lethargic. She has been reasonably ambulant at home. She remained hemodynamically stable and initial blood works came back for any significant findings. She was started with intravenous Rocephin and was admitted with partially treated UTI for continued care. She denies any headache, any blurred vision, any numbness or tingling in the extremities or any weakness involving in any particular side. No chest pain shortness of breath or palpitation. No abdominal pain, nausea and or vomiting. Allergies Allergy/AdvReac Type Severity Reaction Status Date / Time No Known Allergies Allergy Verified 05/29/23 15:59 Home Medications Medication Instructions Recorded Confirmed Type gabapentin 600 mg tablet See Rx Instructions .Route .COMPLEX 05/30/18 05/29/23 History metoprolol succinate 100 mg 100 mg PO HS 05/30/18 05/29/23 History tablet,extended release 24 hr sitagliptin phos 50 mg-metformin 1 tab PO QAM 05/30/18 05/29/23 History ER 1,000 mg tablet,extend rel 24h mp (Janumet XR) zolpidem 10 mg tablet 10 mg PO HS 05/30/18 05/29/23 History amlodipine 2.5 mg tablet 2.5 mg PO DAILY 01/08/22 05/29/23 History duloxetine 60 mg capsule,delayed 60 mg PO QAM 01/08/22 05/29/23 History release lisinopril 10 mg tablet 10 mg PO DAILY 01/08/22 05/29/23 History meloxicam 15 mg tablet 15 mg PO DAILY 01/08/22 05/29/23 History rosuvastatin 10 mg tablet 10 mg PO DAILY 01/08/22 05/29/23 History sarilumab 200 mg/1.14 mL 200 mg subcut UD 01/08/22 05/29/23 History subcutaneous syringe (Kevzara) aspirin 81 mg tablet,delayed 81 mg PO DAILY 11/23/22 05/29/23 History release cholecalciferol (vitamin D3) 50 50 mcg PO DAILY 11/23/22 05/29/23 History mcg (2,000 unit) tablet (Vitamin D3) melatonin 10 mg tablet,extended 10 mg PO HS 11/23/22 05/29/23 History release ipratropium 0.5 mg-albuterol 3 mg 3 ml NEB Q4R PRN shortness of 11/24/22 05/29/23 Rx (2.5 mg base)/3 mL nebulization breath or wheezing #90 mL soln acetaminophen 500 mg tablet 1,000 mg PO Q6H PRN Pain 05/29/23 05/29/23 History (Tylenol Extra Strength) albuterol sulfate 2.5 mg/3 mL 2.5 mg inhalation DIRECTED PRN 05/29/23 05/29/23 History (0.083 %) solution for nebulization Shortness Of Breath Or Wheezing clobetasol 0.05 % topical cream 1 applic topical DIRECTED PRN 05/29/23 05/29/23 History .FLARE UPS fluticasone fur. 100 mcg-umeclid 1 inh inhalation BID 05/29/23 05/29/23 History 62.5 mcg-vilant 25 mcg inhalat.powder (Trelegy Ellipta) multivitamin 1 tab PO DAILY 05/29/23 05/29/23 History nicotine 21 mg/24 hr daily 1 patch topical DAILY 05/29/23 05/29/23 History transdermal patch oxycodone 5 mg tablet 5 mg PO Q6 PRN Pain 05/29/23 05/29/23 History sulfamethoxazole 800 1 tab PO BID 05/29/23 05/29/23 History mg-trimethoprim 160 mg tablet tramadol 50 mg tablet 50 mg PO DAILY PRN Pain 05/29/23 05/29/23 History Past Med/Surg History Medical History (Updated 05/30/23 @ 00:59 by David Gregg MD) Smoking Hypertensive heart disease Hypertension COPD (chronic obstructive pulmonary disease) Hypertension Sleep apnea Type 2 diabetes mellitus Still's disease History of ITP Rheumatoid arthritis Surgical History Status post section Family History Aunt Breast cancer Grandmother Breast cancer Father Heart disease Social History Smoking Status: Former smoker Tobacco Type: Cigarettes Second Hand Exposure: No; Do You Dip or Chew Tobacco: No (Quit last month 04/2023); Tobacco Cessation Education Requested by Patient: No Hx Alcohol Use: No Hx Substance Use: No Preferred Language: Irish Communication Ability: Effective Waxer Required: No Beliefs That Will Affect Care: None Current Living Situation: Spouse and Family Other Information That Helps Us Care for You: No Feels Safe at Home: Yes Safety Concerns: Feels Safe At This Time Assistive Devices: CPAP and Wheelchair Review of Systems Review of Systems: All systems reviewed and are unremarkable except as noted below Physical Exam Physical Exam: Lying in bed without any acute distress Constitutional: + ill appearing and average body habitus Eyes: PERRL, conjunctivae normal, anicteric sclerae ENMT: external ear and nose normal, oropharynx normal Neck: trachea midline, no thyromegaly Respiratory: no respiratory distress Auscultation: lungs clear to auscultation bilaterally Cardiovascular: Rate/Rhythm: regular rate and regular rhythm; not tachycardic Heart Sounds: normal S1 and normal S2; no murmur Extremities: + edema (Trace edema on the left) Gastrointestinal (Abdomen): Inspection/Auscultation: normal bowel sounds; abdomen not distended Percussion/Palpation: abdomen soft; abdomen nontender Musculoskeletal: Left leg is a little warm, movement of the knee joint minimally painful, no acute arthritis in any other joint Neurologic: normal touch/pain/proprioception and moves all extremities; no focal motor deficits Generally weak and lethargic Psychiatric: A+Ox3, euthymic affect Lymphatic: no cervical or axillary lymphadenopathy Results & Data Results & Data Vital Signs (Past 12 Hours) Vital Signs Temp Pulse Pulse Resp BP BP Pulse Ox 05/29/23 16:30 78 20 98 05/29/23 15:31 78 20 107/61 98 05/29/23 13:10 91 H 20 124/74 96 05/29/23 13:10 96 05/29/23 12:43 93 H 05/29/23 12:35 37.6 C H 99 H 20 124/74 94 O2 Del Method 05/29/23 16:30 Room Air 05/29/23 15:31 Room Air 05/29/23 13:10 Room Air 05/29/23 13:10 Room Air 05/29/23 12:43 05/29/23 12:35 Room Air Laboratory Results Short CBC 05/29/23 Range/Units 12:40 WBC 6.28 (4.8-10.8) K/ul Hgb 13.0 (12.0-16.0) g/dl Hct 39.6 (37.0-47.0) % Plt Count 182 (130-400) K/uL BMP 05/29/23 12:40 Sodium 136 Potassium 3.8 Chloride 103 Carbon Dioxide 23 BUN 10 Creatinine 0.98 Glucose 275 H Calcium 8.9 Liver Function 05/29/23 Range/Units 12:40 Total Bilirubin 0.4 (0.2-1.0) mg/dl Direct Bilirubin 0.1 (0-0.2) mg/dl AST 14 (13-39) U/L ALT 10 (7-52) U/L Alkaline Phosphatase 113 H (34-104) U/L Albumin 4.0 (3.4-5.0) gm/dl Urine 05/29/23 Range/Units 12:57 Urine Color Yellow Urine Appearance Clear (Clear) Urine pH 6.5 (4.5-7.5) Ur Specific [place] 1.013 (1.000-1.030) Urine Protein Negative (Negative) Urine Glucose (UA) Negative (Negative)
[2023-05-29] MEDS ORDERED: GLUCAGON FOR INJ 1 MG VIAL SQ PRN (17:06)
[2023-05-29] MEDS ORDERED: GLUCOSE 40% GEL 15 GM TUBE PO PRN (17:06)
[2023-05-29] MEDS ORDERED: GLUCOSE 10 TAB/TUBE PO PRN (17:06)
[2023-05-29] MEDS ORDERED: CARBOHYDRATES FOR HYPOGLYCEMIA PO PRN (17:06)
[2023-05-29] MEDS ORDERED: DEXTROSE 50% 50 ML SYRINGE IV PRN (17:06)
--- NOTE | 2023-05-29 19:30 | Ultrasound Report ---
ULTRASOUND BILATERAL LOWER EXTREMITY VENOUS CLINICAL HISTORY: Leg pain. COMPARISON STUDY: No priors. TECHNIQUE: Real-time, grayscale, and color Doppler sonography of the deep veins of the right and left lower extremity was performed from the inguinal crease to the calf. Compression and augmentation wer e utilized. FINDINGS: There is no sonographic evidence of deep venous thrombosis identified in the right or left lower extremity. The common femoral, superficial femoral, and popliteal veins are patent and normally compressible bilaterally. The greater saphenous vein and the profunda femoris vein at the junction w ith the common femoral vein are clear in both legs. The visualized calf veins are patent bilaterally. IMPRESSION: There is no sonographic evidence of deep venous thrombosis identified in the right or lef t lower extremity. ACT 112: Negative or not required by law. Electronically signed by: Alban Hathaway M.D. 05/29/2023 7:29 PM
[2023-05-29] MEDS ORDERED: ALBUTEROL 0.083% NEBU SOLN 3 ML VIAL INH PRN (19:32)
[2023-05-29] MEDS ORDERED: ALBUT/IPRATROP 3MG/0.5MG NEB 3 ML VIAL NEB PRN (19:32)
[2023-05-29] MEDS ORDERED: traMADol HCL 50 MG TABLET PO PRN (19:32)
[2023-05-29] MEDS ORDERED: CLOBETASOL PROPIONATE 0.05% CREAM 15 GM TUBE TOP PRN (19:32)
[2023-05-29] MEDS: oxyCODONE HCL IR 5 MG TAB (IMMEDIATE RELEASE) PO PRN (19:58)
[2023-05-29] MEDS ORDERED: Nursing to Pharmacy Communication SCH (20:15)
[2023-05-29] MEDS ORDERED: GABAPENTIN 600 MG TAB PO SCH (21:00)
[2023-05-29] MEDS: GABAPENTIN 300 MG CAP PO SCH (21:19)
[2023-05-29] MEDS: MELATONIN 3 MG TAB PO SCH (21:19)
[2023-05-29] MEDS: NICOTINE 21 MG/24 HR TDSY TD ONE (21:19)
[2023-05-29] MEDS: METOPROLOL SUCC 50MG EXT REL TAB PO SCH (21:20)
[2023-05-29] MEDS: GABAPENTIN 600 MG TAB PO SCH (21:20)
[2023-05-29] MEDS: INSULIN ASPART PER UNIT CHARGE SC SCH (21:36)
[2023-05-29] MEDS: ZOLPIDEM TARTRATE 5 MG TAB PO PRN (23:26)
[2023-05-29] MEDS: ACETAMINOPHEN 500 MG TAB PO PRN (23:26)
[2023-05-30 07:46] LABS: Basophils # (auto) 0.01 K/uL (0.00-0.20); Basophils % (auto) 0.3 %; Eosinophils # (auto) 0.27 K/uL (0.00-0.50); Eosinophils % (auto) 7.9 %; Immature Granulocytes # (auto) 0.01 K/uL (0.01-0.20); Immature Granulocytes % (auto) 0.3 %; Lymphocytes # (auto) 0.74 K/uL (1.20-3.40); Lymphocytes % (auto) 21.7 %; Mean Corpuscular Hemoglobin 28.6 pg (25.0-34.0); Mean Corpuscular Hgb Conc 33.3 g/dL (32.0-36.0); Mean Corpuscular Volume 85.7 fL (80.0-100.0); Mean Platelet Volume 10.2 fL (9.4-12.4); Monocytes # (auto) 0.36 K/uL (0.11-0.59); Monocytes % (auto) 10.6 %; Neutrophils # (auto) 2.02 K/uL (1.40-6.50); Neutrophils % (auto) 59.2 %; Platelet Count 151 K/uL (130-400); RDW Coefficient of Variation 14.5 % (11.5-14.5); RDW Standard Deviation 45.3 fL (36.4-46.3); White Blood Count 3.41 K/ul (4.8-10.8)
[2023-05-30 08:29] LABS: Calcium 8.8 mg/dl (8.6-10.3); Creatinine Clr Calc Pharmacy 79.9 ml/min; Est GFR (African American) 103.3 ml/min; Est GFR (Non-African American) 89.1 ml/min; Potassium 3.7 mmol/L (3.5-5.1)
[2023-05-30] MEDS ORDERED: MELOXICAM 7.5 MG TAB PO SCH (09:00)
[2023-05-30] MEDS: FLUTICASONE FUROATE 100MCG 14 PUFFS/INHALER INH SCH (10:11)
[2023-05-30] MEDS: NICOTINE 21 MG/24 HR TDSY TD SCH (10:11)
[2023-05-30] MEDS: ASPIRIN 81 MG ECTAB PO SCH (10:11)
[2023-05-30] MEDS: CHOLECALCIFEROL 25 MCG (1000 UNITS) TAB PO SCH (10:11)
[2023-05-30] MEDS: MULTIVITAMIN TAB PO SCH (10:11)
[2023-05-30] MEDS: UMECLIDINIUM/VILANTEROL 62.5/25MCG 7 PUFFS/INHALER INH SCH (10:11)
[2023-05-30] MEDS: amLODIPine BESYLATE 5 MG TAB PO SCH (10:11)
[2023-05-30] MEDS: ROSUVASTATIN CALCIUM 10 MG TAB PO SCH (10:12)
[2023-05-30] MEDS: lisinopril 10 MG TAB PO SCH (10:12)
[2023-05-30] MEDS: DULoxetine HCL 60 MG CAP PO SCH (10:12)
--- NOTE | 2023-05-30 11:51 | Hospitalist Progress Note ---
Date of Service May 30, 2023 Assessment & Plan (1) UTI (urinary tract infection): Plan: Was diagnosed with UTI last Wednesday with Klebsiella pneumoniae Received Bactrim DS for 3 days Continued fever with smelly urine Likely has partially treated UTI, urine has been negative for any infection but it will be sent for culture and blood culture was sent Started with intravenous ceftriaxone No fever and or chills and denies any urinary symptoms Urine examination was negative on admission Will not give any more antibiotic Ongoing low-grade fever She has been minimally mobile following the multiple injury Will get ultrasound of the lower extremities to rule out DVTs No DVTs No more fever and or chills No signs and or symptoms of infection She wants to go home and she will be discharged (2) Multiple traumatic injuries within prior month: Plan: Fall with loss of consciousness about 1 month ago Multiple fractures involving the pelvis, left tibial plate to and also noted to have subarachnoid hemorrhage Was transferred to [facility] and has been out from rehab about 1 week ago Noted to have foul smell of the urine and was seen by PCP on of this month Has home PT and OT set up for her She refused to have any PT evaluation while in the hospital She will continue with home PT on discharge today She strongly wants to go home today Has had multiple pelvic fracture including pelvic MRI Left tibial plateau fracture Subarachnoid hemorrhage (3) COPD (chronic obstructive pulmonary disease): Plan: Will continue current medications No signs and or symptoms of exacerbation (4) Hypertensive heart disease: Plan: Blood pressure remains stable and will continue current medications (5) Hypertension: (6) Rheumatoid arthritis: Plan: No acute arthritis at this time (7) Type 2 diabetes mellitus: Plan: Will put her on sliding scale insulin coverage (8) Sleep apnea: (9) History of subarachnoid hemorrhage: Plan: Has been on aspirin and will continue Will not give any anticoagulation at this time DVT prophylaxis will given in the form of SCDs DVT prophylaxis SCDs for now CODE STATUS Full Discussed with the in detail who wants to take her home and wondering why she is here today. Admission and Anticipated Discharge Date Admission Date: May 29, 2023 Subjective 05/30/2023 The patient was seen and examined in medical telemetry unit in presence of the She remains asymptomatic without any fever and or chills Generally weak from prior fall and fractures She wants to go home Review of Systems Review of Systems: All systems reviewed and are unremarkable except as noted below Physical Exam Physical Exam: Lying in bed without any acute distress Constitutional: + ill appearing and average body habitus Eyes: PERRL, conjunctivae normal, anicteric sclerae ENMT: external ear and nose normal, oropharynx normal Neck: trachea midline, no thyromegaly Respiratory: no respiratory distress Auscultation: lungs clear to auscultation bilaterally Cardiovascular: Rate/Rhythm: regular rate and regular rhythm; not tachycardic Heart Sounds: normal S1 and normal S2; no murmur Extremities: + edema (Trace edema on the left) Gastrointestinal (Abdomen): Inspection/Auscultation: normal bowel sounds; abdomen not distended Percussion/Palpation: abdomen soft; abdomen nontender Musculoskeletal: No acute arthritis involving any of the joint Neurologic: normal touch/pain/proprioception and moves all extremities; no focal motor deficits Psychiatric: A+Ox3, euthymic affect Lymphatic: no cervical or axillary lymphadenopathy Results & Data Results & Data Vital Signs (Past 12 Hours) Vital Signs Temp Pulse Pulse Resp BP Pulse Ox O2 Del Method 05/30/23 11:35 36.8 C 78 16 146/71 H 91 Room Air 05/30/23 07:40 35.8 C L 76 16 155/81 H 90 Room Air 05/30/23 03:11 37.0 C 83 18 118/64 93 Room Air 05/30/23 00:06 80 Laboratory Results Short CBC 05/29/23 05/30/23 Range/Units 12:40 06:31 WBC 6.28 3.41 L (4.8-10.8) K/ul Hgb 13.0 12.0 (12.0-16.0) g/dl Hct 39.6 36.0 L (37.0-47.0) % Plt Count 182 151 (130-400) K/uL BMP 05/29/23 05/30/23 12:40 06:31 Sodium 136 140 Potassium 3.8 3.7 Chloride 103 111 H Carbon Dioxide 23 24 BUN 10 9 Creatinine 0.98 0.75 Glucose 275 H 116 H Calcium 8.9 8.8 Liver Function 05/29/23 Range/Units 12:40 Total Bilirubin 0.4 (0.2-1.0) mg/dl Direct Bilirubin 0.1 (0-0.2) mg/dl AST 14 (13-39) U/L ALT 10 (7-52) U/L Alkaline Phosphatase 113 H (34-104) U/L Albumin 4.0 (3.4-5.0) gm/dl Urine 05/29/23 Range/Units 12:57 Urine Color Yellow Urine Appearance Clear (Clear) Urine pH 6.5 (4.5-7.5) Ur Specific [place] 1.013 (1.000-1.030) Urine Protein Negative (Negative) Urine Glucose (UA) Negative (Negative) Medications Administered Current Inpatient Medications Acetaminophen (Acetaminophen 500 Mg Tab) 1,000 mg PO Q6H PRN PRN Reason: Pain Stop: 06/28/23 19:31 Last Admin: 05/29/23 23:26 Dose: 1,000 mg Albuterol (Albuterol 0.083% Nebu Soln 3 Ml Vial) 2.5 mg INH Q6H PRN; Protocol PRN Reason: Shortness Of Breath Or Wheezing Stop: 06/28/23 19:31 Albuterol (Albut/Ipratrop 3mg/0.5mg Neb 3 Ml Vial) 3 ml NEB Q4R PRN; Protocol PRN Reason: shortness of breath or wheezing Stop: 06/28/23 19:31 Amlodipine Besylate (Amlodipine Besylate 5 Mg Tab) 2.5 mg PO DAILY JANNET Stop: 06/29/23 08:59 Last Admin: 05/30/23 10:11 Dose: 2.5 mg Aspirin (Aspirin 81 Mg Ectab) 81 mg PO DAILY JANNET Stop: 06/29/23 08:59 Last Admin: 05/30/23 10:11 Dose: 81 mg Clobetasol Propionate (Clobetasol Propionate 0.05% Cream 15 Gm Tube) 1 appln TOP DAILY PRN PRN Reason: FLARE UPS Stop: 06/28/23 19:31 Dextrose (Dextrose 50% 50 Ml Syringe) 25 - 50 ml IV UD PRN; Protocol PRN Reason: Hypoglycemia Protocol Stop: 06/28/23 17:05 Duloxetine HCl (Duloxetine Hcl 60 Mg Cap) 60 mg PO QAM JANNET Stop: 06/29/23 08:59 Last Admin: 05/30/23 10:12 Dose: 60 mg Fluticasone Furoate (Fluticasone Furoate 100mcg 14 Puffs/Inhaler) 1 puffs INH DAILY JANNET Stop: 06/29/23 08:59 Last Admin: 05/30/23 10:11 Dose: 1 puffs Gabapentin (Gabapentin 300 Mg Cap) 300 mg PO BID@1200,2100 [facility] Stop: 06/28/23 20:59 Last Admin: 05/29/23 21:19 Dose: 300 mg Gabapentin (Gabapentin 600 Mg Tab) 600 mg PO TID@0800,1200,2100 [facility] Stop: 06/28/23 20:59 Last Admin: 05/30/23 10:12 Dose: 600 mg Glucagon (Glucagon For Inj 1 Mg Vial) 1 mg SQ UD PRN; Protocol PRN Reason: Hypoglycemia Protocol Stop: 06/28/23 17:05 Glucose (Glucose 10 Tab/Tube) 4 - 8 tab PO UD PRN; Protocol PRN Reason: Hypoglycemia Treatment Stop: 06/28/23 17:05 Glucose (Glucose 40% Gel 15 Gm Tube) 15 - 30 gm PO UD PRN; Protocol PRN Reason: Hypoglycemia Protocol Stop: 06/28/23 17:05 Insulin Aspart (Insulin Aspart Per Unit Charge) 0 units SC ACHS [facility] Stop: 06/28/23 20:59 Last Admin: 05/30/23 10:06 Dose: Not Given Lisinopril (Lisinopril 10 Mg Tab) 10 mg PO DAILY [facility] Stop: 06/29/23 08:59 Last Admin: 05/30/23 10:12 Dose: 10 mg Melatonin (Melatonin 3 Mg Tab) 9 mg PO HS [facility] Stop: 06/28/23 20:59 Last Admin: 05/29/23 21:19 Dose: 9 mg Metoprolol Succinate (Metoprolol Succ 50mg Ext Rel Tab) 100 mg PO [facility] Stop: 06/28/23 20:59 Last Admin: 05/29/23 21:20 Dose: 100 mg Miscellaneous (Carbohydrates For Hypoglycemia ) 15 - 30 gm PO UD PRN PRN Reason: Hypoglycemia Protocol Stop: 06/28/23 17:05 Miscellaneous (Remove Nicoderm Patch) 1 each N/A DAILY@0859 [facility] Stop: 06/29/23 08:58 Last Admin: 05/30/23 10:11 Dose: 1 each Miscellaneous (Sitagliptin Phos-Metformin [Janumet Xr] 50-1,000 Mg Tablet, Er- Order Awaiting Action) 1 each N/A QS JANNET Stop: 06/29/23 00:00 Last Admin: 05/30/23 09:53 Dose: Not Given Multivitamins (Multivitamin Tab) 1 tab PO DAILY JANNET Stop: 06/29/23 08:59 Last Admin: 05/30/23 10:11 Dose: 1 tab Nicotine (Nicotine 21 Mg/24 Hr Tdsy) 21 mg TD DAILY JANNET Stop: 06/29/23 08:59 Last Admin: 05/30/23 10:11 Dose: 21 mg Oxycodone HCl (Oxycodone Hcl Ir 5 Mg Tab (Immediate Release)) 5 mg PO Q6 PRN PRN Reason: Pain Stop: 06/12/23 19:31 Last Admin: 05/29/23 19:58 Dose: 5 mg Rosuvastatin Calcium (Rosuvastatin Calcium 10 Mg Tab) 10 mg PO DAILY JANNET Stop: 06/29/23 08:59 Last Admin: 05/30/23 10:12 Dose: 10 mg Tramadol HCl (Tramadol Hcl 50 Mg Tablet) 50 mg PO DAILY PRN PRN Reason: Pain Stop: 06/28/23 19:31 Umeclidinium/Vilanterol (Umeclidinium/Vilanterol 62.5/25mcg 7 Puffs/Inhaler) 1 puffs INH DAILY JANNET Stop: 06/29/23 08:59 Last Admin: 05/30/23 10:11 Dose: 1 puffs Vitamin D (Cholecalciferol 25 Mcg (1000 Units) Tab) 50 mcg PO DAILY JANNET Stop: 06/29/23 08:59 Last Admin: 05/30/23 10:11 Dose: 50 mcg Zolpidem Tartrate (Zolpidem Tartrate 5 Mg Tab) 5 mg PO HS PRN PRN Reason: Sleep Stop: 06/28/23 20:09 Last Admin: 05/29/23 23:26 Dose: 5 mg (1) UTI (urinary tract infection) Hematuria presence: without hematuria Urinary tract infection type: acute cystitis Qualified Code(s): N30.00 - Acute cystitis without hematuria
--- NOTE | 2023-05-30 15:49 | Discharge Summary ---
Date of Service May 30, 2023 Admission HPI Per Admitting Provider She is a 57 years old female with significant past medical history of type 2 diabetes, stills disease of adult, rheumatoid arthritis involving multiple sites, granulomatous lung disease, COPD, immune thrombocytopenia, LVH secondary to hypertensive heart disease without heart failure, hypertension, MASHA and mixed hyperlipidemia apparently has had a fall about 1 month ago with significant fractures involving left tibial plate to, multiple pelvic fractures and also head injury with subarachnoid hemorrhage and loss of consciousness when she was transferred to [facility] and has been in rehab following that until 1 week before. She has been at home with her daughter and was seen by her primary care physician on Wednesday and noted to have UTI secondary to Klebsiella pneumonia. She was given Bactrim for 3 days course without any improvement of her symptoms and with continued fever and weakness she was brought to emergency room today. She complains to fever and chills but no documented temperature, her urine remains foul-smelling and she remains generally weak and lethargic. She has been reasonably ambulant at home. She remained hemodynamically stable and initial blood works came back for any significant findings. She was started with intravenous Rocephin and was admitted with partially treated UTI for continued care. She denies any headache, any blurred vision, any numbness or tingling in the extremities or any weakness involving in any particular side. No chest pain shortness of breath or palpitation. No abdominal pain, nausea and or vomiting. Admission Exam Per Admitting Provider Physical Exam: Lying in bed without any acute distress Constitutional: + ill appearing and average body habitus Eyes: PERRL, conjunctivae normal, anicteric sclerae ENMT: external ear and nose normal, oropharynx normal Neck: trachea midline, no thyromegaly Respiratory: no respiratory distress Auscultation: lungs clear to auscultation bilaterally Cardiovascular: Rate/Rhythm: regular rate and regular rhythm; not tachycardic Heart Sounds: normal S1 and normal S2; no murmur Extremities: + edema (Trace edema on the left) Gastrointestinal (Abdomen): Inspection/Auscultation: normal bowel sounds; abdomen not distended Percussion/Palpation: abdomen soft; abdomen nontender Musculoskeletal: Left leg is a little warm, movement of the knee joint minimally painful, no acute arthritis in any other joint Neurologic: normal touch/pain/proprioception and moves all extremities; no focal motor deficits Generally weak and lethargic Psychiatric: A+Ox3, euthymic affect Lymphatic: no cervical or axillary lymphadenopathy Principal Diagnosis Low-grade fever, partially treated UTI, generalized weakness, history of fall with multiple fractures, ongoing home health assessment and home PT Discharge Exam Lying in bed without any acute distress Constitutional + ill appearing and average body habitus Eyes PERRL, conjunctivae normal, anicteric sclerae ENMT external ear and nose normal, oropharynx normal Neck trachea midline, no thyromegaly Respiratory no respiratory distress Auscultation: lungs clear to auscultation bilaterally Cardiovascular Rate/Rhythm: regular rate and regular rhythm; not tachycardic Heart Sounds: normal S1 and normal S2; no murmur Extremities: + edema (Trace edema on the left) Gastrointestinal (Abdomen) Inspection/Auscultation: normal bowel sounds; abdomen not distended Percussion/Palpation: abdomen soft; abdomen nontender Neurologic normal touch/pain/proprioception and moves all extremities; no focal motor deficits Psychiatric A+Ox3, euthymic affect Lymphatic no cervical or axillary lymphadenopathy Discharge Data Allergies Allergy/AdvReac Type Severity Reaction Status Date / Time No Known Allergies Allergy Verified 05/29/23 15:59 Consultations 05/29/23 15:59 ED Decision to Admit Stat Ordered Studies 05/29/23 13:05 CT abd pelvis IV con only Stat 05/29/23 17:03 US venous duplex leg [US venous doppler LE ] Stat Hospital Course (1) UTI (urinary tract infection): Was diagnosed with UTI last Wednesday with Klebsiella pneumoniae Received Bactrim DS for 3 days Continued fever with smelly urine Likely has partially treated UTI, urine has been negative for any infection but it will be sent for culture and blood culture was sent Started with intravenous ceftriaxone No fever and or chills and denies any urinary symptoms Urine examination was negative on admission Will not give any more antibiotic Ongoing low-grade fever She has been minimally mobile following the multiple injury Will get ultrasound of the lower extremities to rule out DVTs No DVTs No more fever and or chills No signs and or symptoms of infection She wants to go home and she will be discharged (2) Multiple traumatic injuries within prior month: Fall with loss of consciousness about 1 month ago Multiple fractures involving the pelvis, left tibial plate to and also noted to have subarachnoid hemorrhage Was transferred to [facility] and has been out from rehab about 1 week ago Noted to have foul smell of the urine and was seen by PCP on of this month Has home PT and OT set up for her She refused to have any PT evaluation while in the hospital She will continue with home PT on discharge today She strongly wants to go home today Has had multiple pelvic fracture including pelvic MRI Left tibial plateau fracture Subarachnoid hemorrhage (3) COPD (chronic obstructive pulmonary disease): Will continue current medications No signs and or symptoms of exacerbation (4) Hypertensive heart disease: Blood pressure remains stable and will continue current medications (5) Hypertension: (6) Rheumatoid arthritis: No acute arthritis at this time (7) Type 2 diabetes mellitus: Will put her on sliding scale insulin coverage (8) Sleep apnea: (9) History of subarachnoid hemorrhage: Has been on aspirin and will continue Will not give any anticoagulation at this time DVT prophylaxis will given in the form of SCDs DVT prophylaxis SCDs for now CODE STATUS Full Discussed with the in detail who wants to take her home and wondering why she is here today. Total Time Total Time Spent Total Time Spent (In Minutes): 40 minutes Discharge Plan Discharge Items Patient Disposition: Home - Home Health Services Reason For Visit: FEVER,WEAKNESS,UTI Discharge Diagnosis: Low-grade fever, partially treated UTI, generalized weakness, history of fall with multiple fractures, ongoing home health assessment and home PT Condition on Discharge: Fair Activity: As commented below Activity Comment: Continuing home PT and OT Non-emergency contact: Primary Care Provider Call non-emergency contact if: you have any medication questions and your symptoms worsen Follow-up/Referrals: Raven Agrawal MD [Primary Care Provider] - (Your doctor's office will give you a call with an appointment within 7 days) Diet: Carb Consistent or DM2 Addtl Attending Provider Instructions: Please take precautions to avoid falls No change in your current medication Continue with the home PT and OT Please keep appointments with the healthcare providers Pending Studies at Discharge: Yes Studies:: Blood cultures report Stand-Alone Forms: My [employer], Smoking Cessation Medications and DC Order Prescriptions: Continued gabapentin 600 mg Tablet See Rx Instructions .ROUTE .COMPLEX Rx Instructions: take 1 tablet in the morning and 1.5 tablets at noon and bedtime metoprolol succinate 100 mg Tablet Extended Release 24 Hr 100 mg PO HS zolpidem 10 mg Tablet 10 mg PO HS Janumet XR 50-1,000 mg Tablet, Er Multiphase 24 Hr 1 tab PO QAM Rx Instructions: DOSE STATED BY PATIENT meloxicam 15 mg tablet 15 mg PO DAILY lisinopril 10 mg tablet 10 mg PO DAILY rosuvastatin 10 mg tablet 10 mg PO DAILY amlodipine 2.5 mg tablet 2.5 mg PO DAILY Kevzara 200 mg/1.14 mL syringe 200 mg SUBCUT UD duloxetine 60 mg capsule,delayed release(DR/EC) 60 mg PO QAM aspirin 81 mg Tablet,Delayed Release (Dr/Ec) 81 mg PO DAILY cholecalciferol (vitamin D3) [Vitamin D3] 50 mcg (2,000 unit) Tablet 50 mcg PO DAILY melatonin 10 mg Tablet Extended Release 10 mg PO HS ipratropium-albuterol 0.5 mg-3 mg(2.5 mg base)/3 mL Solution For Nebulization 3 ml NEB Q4R PRN (Reason: shortness of breath or wheezing) Qty: 90 0RF multivitamin Tablet 1 tab PO DAILY tramadol 50 mg tablet 50 mg PO DAILY PRN (Reason: Pain) albuterol sulfate 2.5 mg /3 mL (0.083 %) Solution For Nebulization 2.5 mg INHALATION DIRECTED PRN (Reason: Shortness Of Breath Or Wheezing) clobetasol 0.05 % cream 1 applic TOPICAL DIRECTED PRN (Reason: .FLARE UPS) acetaminophen [Tylenol Extra Strength] 500 mg Tablet 1,000 mg PO Q6H PRN (Reason: Pain) Trelegy Ellipta 100-62.5-25 mcg blister with device 1 inh INHALATION BID nicotine 21 mg/24 hr patch 24 hour 1 patch topical DAILY oxycodone 5 mg tablet 5 mg PO Q6 PRN (Reason: Pain) Discontinued sulfamethoxazole-trimethoprim 800-160 mg tablet 1 tab PO BID Rx Instructions: will end after tomarrows dose Discharge Orders: Discharge Order (Routine); Ordered 05/30/23 Ordered By: Pushpa Zarate Admission Data Admit Date/Time: 05/29/23 17:21 Attending Provider: Pushpa Zarate Admit Provider: Pushpa Zarate Primary Care Provider: Ravne Agrawal Other Providers: Pushpa Zarate; [facility]; [facility]Referral [facility] Other Interventions: Discharge Summary Assessment (RN) Last Done: 05/30/23 12:13
--- NOTE | 2023-06-01 07:09 | Electrocardiogram Report ---
Test Reason : Blood Pressure : / mmHG Vent. Rate : 092 BPM Atrial Rate : 092 BPM P-R Int : 144 ms QRS Dur : 082 ms QT Int : 386 ms P-R-T Axes : 036 054 052 degrees QTc Int : 477 ms Normal sinus rhythm Possible Left atrial enlargement Anterior infarct , age undetermined Abnormal ECG When compared with ECG of 23-NOV-2022 10:34, No significant change was found Confirmed by Romeo Snider ([id number]) on 06/01/2023 7:08:52 AM Referred By: Confirmed By:Romeo Snider
== END 2023-05-30 12:56 | disposition home health service (06) | DRG 690 ==
LOC: ED 12:34 → 2N 17:21

== ENCOUNTER 2023-09-17 20:54 | Inpatient (IN) ==
[2023-09-17 22:14] LABS: Basophils # (auto) 0.03 K/uL (0.00-0.20); Basophils % (auto) 0.6 %; Eosinophils # (auto) 0.23 K/uL (0.00-0.50); Eosinophils % (auto) 4.3 %; Hematocrit (blood only) 48.3 % (37.0-47.0); Hemoglobin 16.4 g/dl (12.0-16.0); Immature Granulocytes # (auto) 0.01 K/uL (0.01-0.20); Immature Granulocytes % (auto) 0.2 %; Lymphocytes # (auto) 1.59 K/uL (1.20-3.40); Lymphocytes % (auto) 29.4 %; Mean Corpuscular Hemoglobin 27.9 pg (25.0-34.0); Mean Corpuscular Volume 82.1 fL (80.0-100.0); Monocytes # (auto) 0.63 K/uL (0.11-0.59); Monocytes % (auto) 11.7 %; Neutrophils # (auto) 2.91 K/uL (1.40-6.50); Neutrophils % (auto) 53.8 %; Platelet Count 161 K/uL (130-400); RDW Coefficient of Variation 14.6 % (11.5-14.5); RDW Standard Deviation 42.8 fL (36.4-46.3); Red Blood Count 5.88 M/uL (4.20-5.40)
[2023-09-17 22:24] LABS: Albumin Globulin Ratio 1.4 (0.9-2); Albumin Level 4.4 gm/dl (3.4-5.0); BUN Creatinine Ratio 9.3 (10-20); Bilirubin,Total 0.4 mg/dl (0.2-1.0); Calcium 9.5 mg/dl (8.6-10.3); Est GFR (African American) 86.9 ml/min; Globulin 3.1 gm/dl (2.5-4.0); Potassium 4.3 mmol/L (3.5-5.1); Total Protein 7.5 gm/dl (6.0-8.3)
--- OUTSIDE RECORDS SUMMARY | 2023-09-17 22:30 | External Medical Summary | Summary of Care ---
Author Name Unknown Organization [facility] Address [address] [facility] [place] [address] Phone [phone] Care Team Providers Care Freight Air Brake Fitter Name Role Phone Raven Agrawal MD Primary Care Provider [phone] Reason for Referral * Evaluate & Treat - Unlimited Visits (Within 10 days (routine)) - Pending Review Specialty Diagnoses / Procedures Referred By Adam washington Referred To Contact Cardiovascular Medicine / Cardiology Diagnoses Abnormal MRI LVH (left ventricular hypertrophy) Kaushal Solis PA-C [email or web address] [place] [address] Referral ID Status Reason Start Date Expiration Date Visits Requested Visits Authorized [id number] Pending Review Specialty Services Required 08/27/[phone] Question Answer Referral Priority Within 10 days (routine) Where should this appointment be scheduled? [facility] To which of the following clinics are you referring your patient? General Cardiology Clinic - HCM Clinic * Evaluate & Treat - Unlimited Visits (Within 10 days (routine)) - Pending Review Specialty Diagnoses / Procedures Referred By Adam washington Referred To Contact Medical Genetics / Hematology Oncology Diagnoses Abnormal MRI LVH (left ventricular hypertrophy) Kaushal Solis PA-C [address] [place] [address] Referral ID Status Reason Start Date Expiration Date Visits Requested Visits Authorized [id number] Pending Review Specialty Services Required 08/27/[phone] Question Answer Referral Priority Within 10 days (routine) Where should this appointment be scheduled? [facility] Is this referral request related to one of the following genetics sub-specialties? If unsure of category, use Medical Genetics Ask-A-Doc. Cardiovascular Will this information impact decision on implantable cardiac defibrillator placement, surgical decision making, or medication management? No Is the patient ? No Is there a positive family history? No Reason for Visit * Reason Onset Date Comments Test Results 08/26/2023 Encounter Details Date Type Department Care Team (Late st Contact Info) Description 08/26/2023 Telephone Cardiology, [facility] [address] [place] [address] Kaushal Solis PA-C [address] [place] [address] Test Results Allergies No known active allergiesdocumented as of this encounter (statuses as of 09/06/2023) Medications Medication Sig Dispensed Refills Start Date End Date Status VITAMIN D 2000 UNIT PO TABS one tablet daily] Activ e KEVZARA 200 MG/1.14ML SOSY Injection every other week 09/20/2017 Active Multiple Vitamin (MULTI-DAY) Tablet Take 1 Tab by mouth daily. Active aspirin enteric coated 81 MG TBECIndications:Mi xed dyslipidemia,Subcl brice artery stenosis, right (HCC) Take 1 Tab by mouth daily. St 09/16 100 Tab 3 01/03/2019 Active traMADol (ULTRAM) 50 MG Tablet Take 1 Tablet by mouth daily as needed for Pain. 1 Tab 07/04/2019 Active zolpidem (AMBIEN) 10 MG TabletIndications: Persistent insomnia Take 1 Tablet by mouth at bedtime. DrMurphy 7 Tab 07/04/2019 Active Melatonin ER 1 MG TBCRIndications:Pe rsistent insomnia at bedtime 10/02/2019 Active Additional Information Patient taking differently: 3 mg Oral HS PRN, Sleep, at bedtime, Reported on 05/19/2023 CPAP every night at bedtime . Active Clobetasol Propionate 0.05 % External Cream (Temovate) Apply topically to affected area 2 times a day. To affected area for up to two weeks. 15 g 1 04/08/2022 Active Additional Information Patient not taking.Reported on 07/22/2023 Gabapentin 600 MG Oral Tablet (Neurontin)Indicat ions:Type 2 diabetes mellitus with diabetic neuropathy, without long-term current use of insulin (HCC) TAKE 1 TABLET IN MORNING, 1.5 TABLET AT NOON AND 1.5 TABLET BEFORE BEDTIME 360 Tablet 1 04/14/2023 Active Ketoconazole 2 % External CreamIndications:S eborrheic dermatitis Apply to affected areas twice daily-nasolabial folds x2-4 wks, then as needed 30 g 1 04/14/2023 Active Additional Information Patient not taking.Reported on 07/21/2023 DULoxetine HCl 60 MG Oral Capsule Delayed Release Particles (Cymbalta)Indicati ons:Major depressive disorder with single episode, in remission (HCC),Type 2 diabetes mellitus with diabetic neuropathy, without long-term current use of insulin (HCC),Cervical spinal stenosis,Cervical spondylosis TAKE 1 CAPSULE BY MOUTH EVERY MORNING 90 Capsule 1 05/03/2023 Active Nicotine 21 MG/24HR Transdermal Patch 24 Hour (Nicoderm CQ) Place 1 Patch topically on the skin daily. 05/16/2023 Active OneTouch Verio In Vitro Strip (Glucose Blood)Indications: Type 2 diabetes mellitus with diabetic neuropathy, without long-term current use of insulin (HCC) Use upto twice daily E11.9 100 Strip 11 05/19/2023 Active Additional Information Patient not taking.Reported on 07/21/2023 OneTouch Verio w/Device KitIndications:Typ e 2 diabetes mellitus with diabetic neuropathy, without long-term current use of insulin (HCC) Use upto twice daily E11.9 1 Kit 05/19/2023 Active Additional Information Patient not taking.Reported on 07/21/2023 OneTouch UltraSoft LancetsIndications :Type 2 diabetes mellitus with diabetic neuropathy, without long-term current use of insulin ([facility]) Use upto twice daily E11.9 100 Each 1 05/19/2023 Active Additional Information Patient not taking.Reported on 07/21/2023 Acetaminophen 500 MG Oral Tablet (Tylenol)Indicatio ns:Pubic ramus fracture, unspecified laterality, with routine healing, subsequent encounter,Closed fracture of medial portion of left tibial plateau with routine healing, subsequent encounter,S/P ORIF (open reduction internal fixation) fracture,Hospital discharge follow-up,Closed fracture of sacrum with routine healing, unspecified fracture morphology, subsequent encounter Take 2 Tablets by mouth every 8 hours as needed for Pain, Moderate. 05/19/2023 Active Jentadueto XR 5-1000 MG Oral Tablet Extended Release 24 Hour (linaGLIPtin-metFO RMIN HCl ER)Indications:Typ e 2 diabetes mellitus with hemoglobin A1c goal of less than 7.0% (HCC),Type 2 diabetes mellitus with diabetic neuropathy, without long-term current use of insulin (HCC) Take 1 Tablet by mouth daily. 90 Tablet 3 06/13/2023 Active Fluticasone-Umecli din-Vilant 100-62.5-25 MCG/ACT Aerosol Powder Breath Activated (Trelegy Ellipta)Indication s:COPD, moderate (HCC) Inhale 1 Puff by mouth in the morning. Start 11/27/2022 and stop symbicort (cancel Rx anoro ellipta). 180 Blister Dosing Unit 3 07/21/2023 Active Rosuvastatin Calcium 10 MG Oral Tablet (Crestor)Indicatio ns:Type 2 diabetes mellitus with diabetic neuropathy, without long-term current use of insulin ([facility]),Mixed dyslipidemia Take 1 Tablet by mouth in the morning. 90 Tablet 3 08/08/2023 Active Metoprolol Succinate ER 50 MG Oral Tablet Extended Release 24 Hour (toPROL XL)Indications:HTN , goal below 130/80,LVH (left ventricular hypertrophy) due to hypertensive disease, without heart failure Take 1 Tablet by mouth in the morning. 90 Tablet 1 08/17/2023 Active Lisinopril 20 MG Oral Tablet (Prinivil)Indicati ons:LVH (left ventricular hypertrophy) due to hypertensive disease, without heart failure,Type 2 diabetes mellitus with diabetic neuropathy, without long-term current use of insulin (HCC) Take 1 Tablet by mouth every evening. 90 Tablet 1 08/17/2023 Active LORazepam 1 MG Oral Tablet (Ativan) Take one tablet 1-2 hours prior to cardiac MRI 1 Tablet 08/23/2023 Active Hospital, Clinic, or Other Facility Administered Medication Ordered Dose Route Frequency Start Date End Date Status Albuterol Sulfate (Proventil) (2.5 MG/3ML) 0.083% inhalation solution 2.5 mgIndications:COPD, moderate (HCC) 2.5 mg NEBULIZER PRN 12/29/2022 12/29/2023 Active documented as of this encounter (statuses as of 09/06/2023) Active Problems Problem Noted Date Diagnosed Date Traumatic subarachnoid hemor rhage with loss of consciousness of 30 minutes or less 07/21/2023 Type 2 diabetes mellitus wit h diabetic neuropathy, without long-term current use of insulin 10/06/2022 Mixed dyslipidemia 10/06/2022 COPD, group B, by GOLD 2017 classification 06/08 Overview: Per COPD GOLD Classification Granulomatous lung disease 06/27/2021 Dense breast tissue on mammogram 01/06/2019 Overview: 01/17; Tobacco use disorder 06/09/2018 Elevated hemoglobin 04/04/2018 Overview: 04/1913-HhAsgg-qgs EPO, ferritin,Tsat, neg JAK2 mutn LVH (left ventricular hypert rophy) due to hypertensive disease, without heart failure 12/27/2017 Overview: 06/1797-tzbd-tg60%, no WMabn,mild A Scl,gr 2 DD HTN, [...] as of this encounter (statuses as of 09/06/2023) Resolved Problems Problem Noted Date Diagnosed Date [...] Pt is a participant in the [facility] (Consortium of Rheumatology Researchers of [place]) national data collection study. For further information please call Dr Alban Del Real or Tata Meeks, RN, CCRC at [phone] [facility] RESEARCH OTHER*[id number] 04/12/2003 08/26/2009 Overview: Renamed Per Clinical Trials Billing Project. Pt is a participant in the [facility] (Consortium of Rheumatology Researchers of [place]) national data collection study. For further information please call Dr Alban Del Real or Tata Meeks, RN, CCRC at [phone] ABN CERVIX NEC-ANTEPART 11/24/200205/31 Elderly multigravida with an tepartum condition or complication 10/10/2002 06/22/2017 Arthritis, rheumatoid 2017 DIABETES-ANTEPARTUM 06/23/19 18 documented as of this encounter (statuses as of 09/06/2023) Immunizations Name Administration Dates Next Due COVID-19 [...] (Menactra) 03/13/2018 Pneumococcal Conjugate Vacci ne, 20-valent ([id number]) 04/06/2022 Pneumococcal Polysaccharide PPV23 (Pneumovax) 03/16/2005 SARS-COV-2 (COVID-19) Vaccine Unspecified 2021 Seasonal Influenza Virus Vac cine, Unspecified Formulation 01/03/2019,01/31/2013,11/17/2011 Seasonal Influenza, PF, 6 M & above, IM , (FluLaval or Fluzone) 01/03/2019 Seasonal Influenza, Split, I IV3, With Preserve, Inj 01/31/2013,11/17/2011 TD - Tetanus/Diptheria (ADULT) 11/17/2011 TD, Preservative Free 10/06/2022,11/17/2011 TDAP, Age 7 and older, IM (Adacel) 01/29/2009 Zoster Vaccine Recombinant (Shingrix) 05/08/2019 ,01/17/2019 [...] in the Last Year Never true 01/03/2019 Utilities Answer Date Recorded Do you have trouble paying y our heating, water, or electric bill? (Adult - for ages 18 years and over) Not on file 08/17/2023 Is your family able to pay t he heat, water, or electric bill? (Household - for ages 0-17 years) Not on file 08/17/2023 Does your family have access to good internet? (Household - for ages 0-17 years) Not on file 08/17/2023 Social Connections Answer Date Recorded How often do you feel lonely or isolated from those around you? (Adult - for ages 18 years and over) Not on file 08/17/2023 Sex and Gender Information Value Date Recorded Sex Assigned at Female 06/28/2018 3:23 PM EDT Gender Identity Female 06/28/2018 3:23 PM EDT Sexual Orientation Straight 06/28/2018 3: 23 PM EDT Job Start Date Occupation Industry Not on file Not on file Not on file documented as of this encounter Miscellaneous Notes * Telephone Encounter - Judy Fabian RPh - 09/06/2023 10:00 AM EDT From pharmacy perspective, Camzyos would be okay to use as EF >55%. There are no significant drug interactions I am not sure if insurance would approve without trial of non DHP CCB first, but we could try Would need documented NYHA class 2-3 symptoms Let me know what you decide! Judy Fabian Pharm D Clinical [facility] Pharmacist Cardiology 09/06/2023,10:01 AM * Telephone Encounter - Fatimah Steward RN - 09/01/2023 2:30 PM EDT Patient scheduled for HCM clinic in January 2024 and genetics in March 2024 (next available for both). Inquiring if acceptable to wait this duration based on recent findings. Please advise. * Addendum Note - Gordo Dan LPN - 09/01/2023 8:31 AM EDTAddended by: GORDO DAN on: 09/01/2023 08:31 AM Modules accepted: Orders * Telephone Encounter - Gordo Dan LPN - 09/01/2023 8:30 AM EDT Referral fixed. Please see patient's MyChart message. * Telephone Encounter - Michelle Reyes OSA - 08/31/2023 8:30 PM EDT Images from the original note were not included. Please correct [facility]D order and pick general cardio and put HCM clinic in box * Telephone Encounter - Radhika Camara OSA - 08/31/2023 4:29 PM EDT Person calling: Patient Relationship to patient: self Number to return call: [phone] Reason for call(brief): Referral Pharmacy: n/a Provider Name: Kaushal Solis PA-C Detailed message to office: Pt currently has order placed for ACHD. 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 Please advise. * Telephone Encounter - Gordo Dan LPN - 08/27/2023 4:02 PM EDT Please see patient's MyChart message. * Telephone Encounter - Ryley Loza OSA - 08/27/2023 9:44 AM EDT Called patient, LM to call back to schedule. * Telephone Encounter - Gordo Dan LPN - 08/27/2023 8:42 AM EDT Please see patient's MyChart reply. Referrals placed. Scheduling please assist. * Telephone Encounter - Gordo Dan LPN - 08/26/2023 12:10 PM EDT Sent patient a Concuity message to make aware. Awaiting reply to place referrals, ----- Message from Kaushal Solis sent at 08/25/2023 4:55 PM EDT ----- Cardiac MRI suggests hypertrophic cardiomyopathy. Zio monitor pending Refer to the hypertrophic cardiomyopathy clinic at [facility] [place]. documented in this encounter Plan of Treatment Upcoming Encounters Date Type Department Care Team (Late st Contact Info) Description 09/21/2023 3:40 PM EDT Office Visit Sleep Disorders [facility] [address] [place] [phone] Patricia Guevara DO [address] [place] [address] 10/19/2023 1:30 PM EDT Office Visit Cardiology, [facility] [address] [place] [address] Kaushal Solis PA-C [address] [place] [address] 12/24/2023 1:00 PM EDT Imaging Radiology [facility] [address] [facility] [address] [place] [address] 01/10/2024 10:00 AM EST Laboratory Laboratory, [facility] [address] [place] [phone] [facility] [address] [place] [address] 01/14/2024 4:00 PM EST Office Visit Hematology/Oncology [facility] [address] [place], [place] [id number] Fatimah Quintero CRNP [address] [facility] [place] [address] 01/17/2024 3:00 PM EST Office Visit General Internal Medicine [facility] [address] [facility] [place] [address] Raven Agrawal MD [address] [facility] [place], [place] [address] 02/01/2024 7:30 AM EST Cardiac Studies Cardiac Studies [facility] [address] [place] [address] [place] [address] [place] [address] 02/01/2024 8:00 AM EST Office Visit Cardiology [facility] [address] [place] [address] Francisco Brian MD [address] [place] [address] 03/08/2024 2:00 PM EST Office Visit [facility] [address] [place] [address] Chandrika Gibson, MS [address] [place] [address] Scheduled Procedures Name Priority Associated Diagnoses Date/Ti me COLONOSCOPY FLEXIBLE PROXIMA L DIAGNOSTIC Recall Screening for malignant neoplasm of colon Scheduled Referrals Name Type Priority Associated Diagnoses Orde r Schedule GENETICS REFERRAL OP Referral Within 10 d ays (routine) Abnormal MRI LVH (left ventricular hypertrophy) Ordered: 08/27/2023 CARDIOLOGY REFERRAL OP Referral Within 10 days (routine) Abnormal MRI LVH (left ventricular hypertrophy) Ordered: 09/01/2023 Health Maintenance Due Date Last Done Comments HPV/Co-Test 1996 Cologuard 09/13/2011 Fecal Occult Blood Test 09/13/2011 Sigmoidoscopy 09/13/2011 COVID-19 Vaccine ( season) 2022 01/07/2022, 03/25/2021, 03/24/2021, Additional history exists Diabetic Eye Exam 01/15/2023 01/15/2022, , 07/22/2017, Additional history exists Albumin/Creatinine Ratio 04/03/2023 023, 04/01/2021, 03/25/2020, Additional history exists Depression Screening 04/06/2023 04/06/2022 Diabetic Foot Exam 04/06/2023 04/06/2022, 0 07/03/2021, 03/27/2020, Additional history exists Cervical Cancer Screening 09/25/2023 Pap Smear 09/25/2023 09/24/2020, 05/31, 03/30/2014, Additional history exists Influenza Vaccine (FLU shot) (#1) 2023 01/03/2019, 01/03/2019, 01/31/2013, Additional history exists Mammogram 12/18/2023 12/17/2022, 10/0 06/2021, 10/09/2020, Additional history exists HbA1c 01/20/2024 07/20/2023, 08/0 08/2022, 04/03/2022, Additional history exists B-12 07/19/2024 07/20/2023, 08/0 08/2022, 03/27/2021, Additional history exists O2 ASSESSMENT COMPLETED IN PAST YEAR FOR COPD 07/20/2024 07/21/2023 GFR 08/22/2024 08/23/2023, 06/30, 05/13/2023, Additional history exists Colonoscopy 02/03/2028 02/02/2018, 02/02/2018 Colorectal Cancer Screening 02/03/2028 Lipid Panel 07/19/2028 07/20/2023, 04/02, 10/05/2022, Additional history exists DTaP,Tdap,and Td Vaccines (5 - Td or Tdap) 10/06/2032 10/06/2022, 11/17/2011, 11/17/2011, Additional history exists Hepatitis B Vaccine Completed 08/09/2013, 03/08/2013, 01/31/2013 Hepatitis C Screening Completed 08/12/2015 MENINGOCOCCAL (MENACTRA/MENVEO) Aged Out 03/13/2018 No longer eligible based on patient's age to complete this topic Zoster Vaccines Completed 05/08/2019, 01/17/2019 Alpha-1 Antitrypsin Completed 09/20/2020 Pneumococcal Vaccine: Pediatrics (0 to 5 Years) and At-Risk Patients (6 to 64 Years) Completed 04/06/2022, 03/16/2005 HPV (Gardasil) Vaccine Aged Out No lo nger eligible based on patient's age to complete this topic documented as of this encounter Medical Devices Not on filedocumented as of this encounter Visit Diagnoses Diagnosis Abnormal MRI- Primary Other nonspecific (abnormal) findings on radiological and other examinations of body structure LVH (left ventricular hypertrophy) Cardiomegaly documented in this encounter Care Teams Freight Air Brake Fitter Relationship Specialty Start Date End Date Raven Agrawal MD [address] [place] [address] PCP - General Internal Medicine 12/27/17 documented as of this encounter
--- OUTSIDE RECORDS SUMMARY | 2023-09-17 22:30 | External Medical Summary | Summary of Care ---
Author Name Unknown Organization [facility] Address [address] [facility] [address] Phone [phone] Care Team Providers Care Mannequin Molder Name Role Phone Raven Agrawal MD Primary Care Provider [phone] Reason for Referral * Evaluate & Treat - Unlimited Visits (Within 10 days (routine)) - Pending Review Specialty Diagnoses / Procedures Referred By Adam washington Referred To Contact Cardiovascular Medicine / Cardiology Diagnoses Abnormal MRI LVH (left ventricular hypertrophy) Kaushal Solis PA-C [address] [place] [address] Referral ID Status Reason Start Date Expiration Date Visits Requested Visits Authorized [id number] Pending Review Specialty Services Required 08/27/2023 999 [...] (left ventricular hypertrophy) Kaushal Solis PA-C [address] [place] [address] Referral ID Status Reason Start Date Expiration Date Visits Requested Visits Authorized [id number] Pending Review Specialty Services Required 08/27/2023 999 [...] st Contact Info) Description 08/26/2023 Telephone Cardiology, [facility] [address] [place] [address] Kaushal Solis PA-C [address] [place] [address] Test Results Allergies No known active allergiesdocumented as of this encounter (statuses as of 09/07/2023) Medications Medication Sig Dispensed Refills Start Date [...] of insulin ([facility]) Use upto twice daily E11.9 [...] insulin ([facility]),Mixed dyslipidemia Take 1 Tablet by mouth in [...] as of this encounter (statuses as of 09/07/2023) Active Problems Problem Noted Date Diagnosed Date [...] use disorder 06/09/2018 Elevated hemoglobin 04/04/2018 Overview: 04/1950-FhZveo-hcm EPO, ferritin,Tsat, neg JAK2 mutn LVH (left ventricular hypert rophy) due to hypertensive disease, without heart failure 12/27/2017 Overview: 06/1725-budr-ls81%, no WMabn,mild A Scl,gr 2 DD HTN, [...] as of this encounter (statuses as of 09/07/2023) Resolved Problems Problem Noted Date Diagnosed Date [...] is a participant in the [facility] (Consortium of Rheumatology Researchers of [place]) national data collection study. For further information please call Dr Alban Del Real or Tata Meeks, RN, CCRC at [phone] [facility] RESEARCH OTHER*[id number] 04/12/2003 08/26/2009 Overview: Renamed Per Clinical Trials Billing Project. Pt is a participant in the [facility] (Consortium of Rheumatology Researchers [place]) national data collection study. For further information please call Dr Alban Del Real or Tata Meeks, RN, CCRC at [phone] ABN CERVIX NEC-ANTEPART 11/24/200205/31 Elderly multigravida with an tepartum condition or complication 10/10/2002 06/22/2017 Arthritis, rheumatoid 2017 DIABETES-ANTEPARTUM 06/23/19 18 documented as of this encounter (statuses as of 09/07/2023) Immunizations Name Administration Dates Next Due COVID-19 [...] (Menactra) 03/13/2018 Pneumococcal Conjugate Vacci ne, 20-valent ([id number]) 04/06/2022 Pneumococcal Polysaccharide PPV23 (Pneumovax) 03/16/2005 SARS-COV-2 [...] encounter Miscellaneous Notes * Telephone Encounter - Kaushal Solis PA-C - 09/07/2023 4:25 PM EDT Jose Luiso pending, considering titration of metoprolol. We will await evaluation at the [facility] for Camzyos consideration. Kaushal Solis PA-C Department of Cardiology * Telephone Encounter - Judy Fabian RPh [...] you decide! Judy Fabian Pharm D Clinical [facility] Pharmacist Cardiology 09/06/2023,10:01 AM * Telephone Encounter [...] to patient: self Number to return call: [phone] Reason for call(brief): Referral Pharmacy: n/a Provider [...] 08/26/2023 12:10 PM EDT Sent patient a [employer] message to make aware. Awaiting reply to place referrals, ----- Message from Kaushal Solis sent at 08/25/2023 4:55 PM EDT ----- Cardiac MRI suggests hypertrophic cardiomyopathy. Zio monitor pending Refer to the hypertrophic cardiomyopathy clinic at [facility]. documented in this encounter Plan of Treatment Upcoming Encounters Date Type Department Care Team (Late st Contact Info) Description 09/21/2023 3:40 PM EDT Office Visit Sleep Disorders Ctr [facility] [address] [place] [phone] Patricia Guevara DO [address] [place] [address] 10/19/2023 1:30 PM EDT Office Visit Cardiology, [facility] [address] [place] [address] Kaushal Solis PA-C [address] [place] [address] 12/24/2023 1:00 PM EDT Imaging Radiology [address] 132 [facility] [place] [address] 01/10/2024 10:00 AM EST Laboratory Laboratory, [facility] 132 [facility] [place] [phone] [facility] [place] [address] 01/14/2024 4:00 PM EST Office Visit Hematology/Oncology [facility] [address] [facility] [place] [phone] Fatimah Quintero CRNP [address] [place] [address] 01/17/2024 3:00 PM EST Office Visit General Internal Medicine [facility] [address] [facility] [place] [address] Raven Agrawal MD 200 [facility] [place] [address] 02/01/2024 7:30 AM EST Cardiac Studies [facility] [place] [address] [place] [address] [place], Ekg [address] [place] [address] 02/01/2024 8:00 AM EST Office Visit Cardiology [facility] [address] [place] [address] Francisco Brian MD [address] [place] [address] 03/08/2024 2:00 PM EST Office Visit Cardiovascular Genetics, [facility] 132 [facility] [place] [address] Chandrika Gibson, MS 132 [facility] [place] [address] Scheduled Procedures Name Priority Associated Diagnoses Date/Ti [...] 01/31/2013, Additional history exists Mammogram 12/18/2023 12/17/2022, 1006/2021, 10/09/2020, Additional history exists HbA1c 01/20/2024 07/20/2023, [...] Cardiomegaly documented in this encounter Care Teams Mannequin Molder Relationship Specialty Start Date End Date Raven Agrawal MD 200 [place] [address] PCP - General Internal Medicine 12/27/17 documented as of this encounter
--- OUTSIDE RECORDS SUMMARY | 2023-09-17 22:30 | External Medical Summary | Summary of Care ---
Author Name Unknown Organization [facility] Address [address] [facility] [place] [address] Phone [phone] Care Team Providers Care Children'S Ministry Director Name Role Phone Raven Agrawal MD Primary Care Provider [phone] Reason for Referral * Evaluate & Treat - Unlimited Visits (Within 10 days (routine)) - Pending Review Specialty Diagnoses / Procedures Referred By Adam washington Referred To Contact Cardiovascular Medicine / Cardiology Diagnoses Abnormal MRI LVH (left ventricular hypertrophy) Kaushal Solis PA-C [address] [employer] [place] [address] Referral ID Status Reason Start Date Expiration Date Visits Requested Visits Authorized [id number] Pending Review Specialty Services Required 08/27/2023 999 [...] (left ventricular hypertrophy) Kaushal Solis PA-C [address] [place] [address] Referral ID Status Reason Start Date Expiration Date Visits Requested Visits Authorized [id number] Pending Review Specialty Services Required 08/27/2023 999 [...] st Contact Info) Description 08/26/2023 Telephone Cardiology, [facility] [address] [place] [address] Kaushal Solis PA-C [address] [place] [address] Test Results Allergies No known active allergiesdocumented as of this encounter (statuses as of 09/01/2023) Medications Medication Sig Dispensed Refills Start Date [...] long-term current use of insulin ([facility]) Use upto twice daily E11.9 100 Each [...] long-term current use of insulin ([facility]),Mixed dyslipidemia Take 1 Tablet by mouth in [...] as of this encounter (statuses as of 09/01/2023) Active Problems Problem Noted Date Diagnosed Date [...] use disorder 06/09/2018 Elevated hemoglobin 04/04/2018 Overview: 04/1999-OvHgeu-oel EPO, ferritin,Tsat, neg JAK2 mutn LVH (left ventricular hypert rophy) due to hypertensive disease, without heart failure 12/27/2017 Overview: 06/1761-bddz-ej91%, no WMabn,mild A Scl,gr 2 DD HTN, [...] as of this encounter (statuses as of 09/01/2023) Resolved Problems Problem Noted Date Diagnosed Date [...] Project. Pt is a participant in the [facility] (Consortium of Rheumatology Researchers of [place]) national data collection study. For further information please call Dr Alban Del Real or Tata Meeks, RN, CCRC at [phone] [facility] RESEARCH OTHER*[id number] 04/12/2003 08/26/2009 Overview: Renamed Per Clinical Trials Billing Project. Pt is a participant in the [facility] (Consortium of Rheumatology Researchers of [place]) national data collection study. For further information please call Dr Alban Del Real or Tata Meeks, RN, CCRC at [phone] ABN CERVIX NEC-ANTEPART 11/24/200205/31 Elderly multigravida with an tepartum condition or complication 10/10/2002 06/22/2017 Arthritis, rheumatoid 2017 DIABETES-ANTEPARTUM 06/23/19 18 documented as of this encounter (statuses as of 09/01/2023) Immunizations Name Administration Dates Next Due COVID-19 [...] (Menactra) 03/13/2018 Pneumococcal Conjugate Vacci ne, 20-valent ([id number]) 04/06/2022 Pneumococcal Polysaccharide PPV23 (Pneumovax) 03/16/2005 SARS-COV-2 [...] encounter Miscellaneous Notes * Telephone Encounter - Fatimah Steward RN [...] to patient: self Number to return call: [phone] Reason for call(brief): Referral Pharmacy: n/a Provider [...] 08/26/2023 12:10 PM EDT Sent patient a [employer] message to make aware. Awaiting reply to place referrals, ----- Message from Kaushal Solis sent at 08/25/2023 4:55 PM EDT ----- Cardiac MRI suggests hypertrophic cardiomyopathy. Zio monitor pending Refer to the hypertrophic cardiomyopathy clinic at [facility]. documented in this encounter Plan of Treatment Upcoming Encounters Date Type Department Care Team (Late st Contact Info) Description 09/21/2023 3:40 PM EDT Office Visit Sleep Disorders Ctr [facility] [address] [place] [phone] Patricia Guevara DO [address] [place] [address] 10/19/2023 1:30 PM EDT Office Visit Cardiology, [facility] [address] [place] [address] Kaushal Solis PA-C [address] [place] [address] 12/24/2023 1:00 PM EDT Imaging Rad[facility] [address] [place] [address] 01/10/2024 10:00 AM EST Laboratory Laboratory, [facility] 132 [facility] [place] [phone] [facility] 132 [facility] [place] [address] 01/14/2024 4:00 PM EST Office Visit Hematology/Oncology [facility] [address] [place] [address] [phone] Fatimah Quintero CRNP 400 [facility] [place] [address] 01/17/2024 3:00 PM EST Office Visit General Internal Medicine [facility] [address] [place] [address] Raven Agrawal MD [address] [place] [address] 02/01/2024 7:30 AM EST Cardiac Studies Cardiac Studies [facility] [address] [place] [address] [place], Ekg [address] [place] [address] 02/01/2024 8:00 AM EST Office Visit Cardiology [facility] [address] [place] [address] Francisco Brian MD [address] [place] [address] 03/08/2024 2:00 PM EST Office Visit Cardiovascular Genetics, [facility] [address] [place] [address] Chandrika Gibson, MS [address] [place] [address] Scheduled Procedures Name Priority Associated Diagnoses Date/Ti [...] Cancer Screening 09/25/2023 Pap Smear 09/25/2023 09/24/2020, /2 05/2017, 03/30/2014, Additional history exists Influenza Vaccine (FLU [...] Cardiomegaly documented in this encounter Care Teams Children'S Ministry Director Relationship Specialty Start Date End Date Raven Agrawal MD [address] [place] [address] PCP - General Internal Medicine 12/27/17 documented as of this encounter
--- OUTSIDE RECORDS SUMMARY | 2023-09-17 22:30 | External Medical Summary | Summary of Care ---
Author Name Unknown Organization [facility] Address [address] [place] [facility] [address] Phone [phone] Care Team Providers Care Keyboard Instrument Repairer Name Role Phone Raven Agrawal MD Primary Care Provider [phone] Reason for Referral * Evaluate & Treat - Unlimited Visits (Within 10 days (routine)) - Pending Review Specialty Diagnoses / Procedures Referred By Adam washington Referred To Contact Cardiovascular Medicine / Cardiology Diagnoses Abnormal MRI LVH (left ventricular hypertrophy) Kaushal Solis PA-C [address] [place] [address] Referral ID Status Reason Start Date Expiration Date Visits Requested Visits Authorized [id number] Pending Review Specialty Services Required 08/27/2023 999 [...] (left ventricular hypertrophy) Kaushal Solis PA-C [address] [address] [place] [address] Referral ID Status Reason Start Date Expiration Date Visits Requested Visits Authorized [id number] Pending Review Specialty Services Required 08/27/2023 999 [...] st Contact Info) Description 08/26/2023 Telephone Cardiology, [facility] [address] [place] [address] Kaushal Solis PA-C [address] [place] [address] Test Results Allergies No known active allergiesdocumented [...] neuropathy, without long-term current use of insulin ([facility]) Use upto twice daily E11.9 100 [...] neuropathy, without long-term current use of insulin ([facility]),Mixed dyslipidemia Take 1 Tablet by mouth [...] use disorder 06/09/2018 Elevated hemoglobin 04/04/2018 Overview: 04/1986-SlQnsm-glp EPO, ferritin,Tsat, neg JAK2 mutn LVH (left ventricular hypert rophy) due to hypertensive disease, without heart failure 12/27/2017 Overview: 06/1724-ipxr-ee09%, no WMabn,mild A Scl,gr 2 DD HTN, [...] Project. Pt is a participant in the [facility] (Consortium of Rheumatology Researchers of [place]) national data collection study. For further information please call Dr Alban Del Real or Tata Meeks, RN, CCRC at [phone] [facility] RESEARCH OTHER*[id number] 04/12/2003 08/26/2009 Overview: Renamed Per Clinical Trials Billing Project. Pt is a participant in the [facility] (Consortium of Rheumatology Researchers of [place]) national data collection study. For further information please call Dr Alban Del Real or Tata Meeks, RN, CCRC at [phone] ABN CERVIX NEC-ANTEPART 11/24/200205/31 Elderly multigravida with [...] (Menactra) 03/13/2018 Pneumococcal Conjugate Vacci ne, 20-valent ([id number]) 04/06/2022 Pneumococcal Polysaccharide PPV23 (Pneumovax) 03/16/2005 SARS-COV-2 [...] as of this encounter Miscellaneous Notes * Addendum Note - Gordo Dan LPN - 09/01/2023 8:31 AM EDTAddended by: GORDO DAN on: 09/01/2023 08:31 AM Modules accepted: Orders * Telephone Encounter - Gordo Dan LPN - 09/01/2023 8:30 AM EDT Referral fixed. Please see patient's [employer] message. * Telephone Encounter - Michelle Reyes OSA - 08/31/2023 8:30 PM EDT Images from the original note were not included. Please correct [facility] order and pick general cardio and put HCM clinic in box * Telephone Encounter - Radhika Camara OSA - 08/31/2023 4:29 PM EDT Person calling: Patient Relationship to patient: self Number to return call: [phone] Reason for call(brief): Referral Pharmacy: n/a Provider [...] 08/26/2023 12:10 PM EDT Sent patient a [employer] message to make aware. Awaiting reply to place referrals, ----- Message from Kaushal Solis sent at 08/25/2023 4:55 PM EDT ----- Cardiac MRI suggests hypertrophic cardiomyopathy. Zio monitor pending Refer to the hypertrophic cardiomyopathy clinic at [facility]. documented in this encounter Plan of Treatment Upcoming Encounters Date Type Department Care Team (Late st Contact Info) Description 09/21/2023 3:40 PM EDT Office Visit Sleep Disorders Ctr [facility] [address] [place] [phone] Patricia Guevara, 132 [place] [address] 10/19/2023 1:30 PM EDT Office Visit Cardiology, [facility] [address] Kaushal Solis PA-C [facility] [address] 12/24/2023 1:00 PM EDT Imaging Radiology [facility] [place] [address] 01/10/2024 10:00 AM EST Laboratory Laboratory, [address] [place] [phone] [facility] 132 [facility] [address] 01/14/2024 4:00 PM EST Office Visit Hematology/Oncology [facility] 200 [place] [phone] Fatimah Quintero CRNP [address] [place] [address] 01/17/2024 3:00 PM EST Office Visit General Internal Medicine [facility] 200 [facility] [place] [address] Raven Agrawal MD 200 [place] [address] 02/01/2024 7:30 AM EST Cardiac Studies Card[facility] Studies [facility] [address] [place] [address] [place] Ekg [address] [place], [place] [id number] 02/01/2024 8:00 AM EST Office Visit Cardiology [facility] [place] [address] [place], [place] [address] Francisco Brian MD [address] [place] [address] Scheduled Procedures Name Priority Associated Diagnoses Date/Ti [...] 09/24/2020, 04/2 05/2017, 03/30/2014, Additional history exists Influenza Vaccine (FLU shot) (#1) 2023 01/03/2019, 01/03/2019, 01/31/2013, Additional history exists Mammogram 12/18/2023 12/17/2022, 100 06/2021, 10/09/2020, Additional history exists HbA1c 01/20/2024 [...] Cardiomegaly documented in this encounter Care Teams Keyboard Instrument Repairer Relationship Specialty Start Date End Date Raven Agrawal MD [address] [place] [address] PCP - General Internal Medicine 12/27/17 documented as of this encounter
--- OUTSIDE RECORDS SUMMARY | 2023-09-17 22:31 | External Medical Summary | Summary of Care ---
Author Name Unknown Organization [facility] Address [address] [place] [facility] [place] [address] Phone [phone] Care Team Providers Care Classification Inspector Name Role Phone Raven Agrawal MD Primary Care Provider [phone] Reason for Referral * Evaluate & Treat - Unlimited Visits (Within 10 days (routine)) - Pending Review Specialty Diagnoses / Procedures Referred By Adam [place] Referred To Contact Cardiovascular Medicine / Cardiology Diagnoses Abnormal MRI LVH (left ventricular hypertrophy) Kaushal Solis PA-C [address] [employer] [employer] [place] [address] Referral ID Status Reason Start Date Expiration Date Visits Requested Visits Authorized [id number] Pending Review Specialty Services Required 08/27/2023 999 999 Question Answer Referral Priority Within 10 days (routine) Where should this appointment be scheduled? [facility] To which of the following clinics are you referring your patient? [facility] * Evaluate & Treat - Unlimited Visits (Within 10 days (routine)) - Pending Review Specialty Diagnoses / Procedures Referred By Adam washington Referred To Contact Medical Genetics / Hematology Oncology Diagnoses Abnormal MRI LVH (left ventricular hypertrophy) Kaushal Slois PA-C [address] [facility] [place] [address] Referral ID Status Reason Start Date Expiration Date Visits Requested Visits Authorized [id number] Pending Review Specialty Services Required 08/27/2023 999 [...] st Contact Info) Description 08/26/2023 Telephone Cardiology, [facility] [address] [place] [address] Kaushal Solis PA-C [address] [place] [address] Test Results Allergies No known active allergiesdocumented as of this encounter (statuses as of 08/30/2023) Medications Medication Sig Dispensed Refills Start Date [...] neuropathy, without long-term current use of insulin ([facility]) Use upto twice daily E11.9 [...] neuropathy, without long-term current use of insulin ([facility]),Mixed dyslipidemia Take 1 Tablet by [...] as of this encounter (statuses as of 08/30/2023) Active Problems Problem Noted Date Diagnosed Date [...] use disorder 06/09/2018 Elevated hemoglobin 04/04/2018 Overview: 04/1950-AxIulo-txs EPO, ferritin,Tsat, neg JAK2 mutn LVH (left ventricular hypert rophy) due to hypertensive disease, without heart failure 12/27/2017 Overview: 06/1785-yeke-ab26%, no WMabn,mild A Scl,gr 2 DD HTN, [...] as of this encounter (statuses as of 08/30/2023) Resolved Problems Problem Noted Date Diagnosed Date [...] Real or Tata Meeks, RN, CCRC at [phone] [facility] RESEARCH OTHER*[id number] 04/12/2003 08/26/2009 Overview: Renamed Per Clinical Trials Billing Project. Pt is a participant in the [facility] (Consortium of Rheumatology Researchers of [place]) national data collection study. For further information please call Dr Alban Del Real or Tata Meeks, RN, CCRC at [phone] ABN CERVIX NEC-ANTEPART 11/24/200205/31 Elderly multigravida with an tepartum condition or complication 10/10/2002 06/22/2017 Arthritis, rheumatoid 2017 DIABETES-ANTEPARTUM 06/23/19 18 documented as of this encounter (statuses as of 08/30/2023) Immunizations Name Administration Dates Next Due COVID-19 [...] (Menactra) 03/13/2018 Pneumococcal Conjugate Vacci ne, 20-valent ([id number]) 04/06/2022 Pneumococcal Polysaccharide PPV23 (Pneumovax) 03/16/2005 SARS-COV-2 [...] encounter Miscellaneous Notes * Telephone Encounter - Gordo Dan LPN [...] 08/26/2023 12:10 PM EDT Sent patient a [employer] message to make aware. Awaiting reply to place referrals, ----- Message from Kaushal Solis sent at 08/25/2023 4:55 PM EDT ----- Cardiac MRI suggests hypertrophic cardiomyopathy. Zio monitor pending Refer to the hypertrophic cardiomyopathy clinic at [facility] and [employer]. documented in this encounter Plan of Treatment Upcoming Encounters Date Type Department Care Team (Late st Contact Info) Description 09/21/2023 3:40 PM EDT Office Visit Sleep Disorders Ctr [facility] [address] [place] [phone] Patricia Guevara DO [address] [place] [address] 10/19/2023 1:30 PM EDT Office Visit Cardiology, [facility] [address] [place] [address] Kaushal Solis PA-C [address] [place] [address] 12/24/2023 1:00 PM EDT [facility] [address] [place] [address] 01/10/2024 10:00 AM EST Laboratory Laboratory, [facility] 132 [facility] [place] [phone] [facility] 132 [facility] [place] [address] 01/14/2024 4:00 PM EST Office Visit Hematology/Oncology [facility] [address] [facility] [place] [phone] Fatimah Quintero CRNP [address] [facility] [place] [address] 01/17/2024 3:00 PM EST Office Visit General Internal Medicine [facility] [address] [facility] [place] [address] Raven Agrawal MD [address] [facility] [place] [address] Scheduled Procedures Name Priority Associated Diagnoses Date/Ti me COLONOSCOPY FLEXIBLE PROXIMA L DIAGNOSTIC Recall Screening for malignant neoplasm of colon Scheduled Referrals Name Type Priority Associated Diagnoses Orde r Schedule GENETICS REFERRAL OP Referral Within 10 d ays (routine) Abnormal MRI LVH (left ventricular hypertrophy) Ordered: 08/27/2023 CARDIOLOGY REFERRAL OP Referral Within 10 days (routine) Abnormal MRI LVH (left ventricular hypertrophy) Ordered: 08/27/2023 Health Maintenance Due Date Last Done Comments [...] Cardiomegaly documented in this encounter Care Teams Classification Inspector Relationship Specialty Start Date End Date Raven Agrawal MD [address] [place] [address] PCP - General Internal Medicine 12/27/17 documented as of this encounter
--- OUTSIDE RECORDS SUMMARY | 2023-09-17 22:31 | External Medical Summary | Summary of Care ---
Author Name Unknown Organization [facility] Address [address] [place] [facility] [place] [place] [address] Phone [phone] Care Team Providers Care Patient Care Coordinator Name Role Phone Raven Agrawal MD Primary Care Provider [phone] Reason for Referral * Evaluate & Treat - Unlimited Visits (Within 10 days (routine)) - Pending Review Specialty Diagnoses / Procedures Referred By Adam washington Referred To Contact Cardiovascular Medicine / Cardiology Diagnoses Abnormal MRI LVH (left ventricular hypertrophy) Kaushal Solis PA-C [address] [employer] [facility] [place] [address] Referral ID Status Reason Start Date Expiration Date Visits Requested Visits Authorized [id number] Pending Review Specialty Services Required 08/27/2023 999 [...] (left ventricular hypertrophy) Kaushal Solis PA-C [address] [place] [address] Referral ID Status Reason Start Date Expiration Date Visits Requested Visits Authorized [id number] Pending Review Specialty Services Required 08/27/2023 999 [...] st Contact Info) Description 08/26/2023 Telephone Cardiology, [facility] [address] [place] [address] Kaushal Solis PA-C [address] [place] [address] Test Results Allergies No known active allergiesdocumented as of this encounter (statuses as of 08/27/2023) Medications Medication Sig Dispensed Refills Start Date [...] of insulin ([facility]) Use upto twice daily E11.9 100 [...] use of insulin ([facility]),Mixed dyslipidemia Take 1 Tablet by mouth [...] as of this encounter (statuses as of 08/27/2023) Active Problems Problem Noted Date Diagnosed Date [...] use disorder 06/09/2018 Elevated hemoglobin 04/04/2018 Overview: 04/1990-SoAafd-dqe EPO, ferritin,Tsat, neg JAK2 mutn LVH (left ventricular hypert rophy) due to hypertensive disease, without heart failure 12/27/2017 Overview: 06/1777-kczh-pj18%, no WMabn,mild A Scl,gr 2 DD HTN, [...] as of this encounter (statuses as of 08/27/2023) Resolved Problems Problem Noted Date Diagnosed Date [...] please call Dr Alban Del Real or Taat Meeks, RN, CCRC at [phone] [facility] RESEARCH OTHER*[id number] 04/12/2003 08/26/2009 Overview: Renamed Per Clinical Trials Billing Project. Pt is a participant in the [facility] (Consortium of Rheumatology Researchers of [place]) national data collection study. For further information please call Dr Alban Del Real or Tata Meeks, RN, CCRC at [phone] ABN CERVIX NEC-ANTEPART 11/24/200205/31 Elderly multigravida with an tepartum condition or complication 10/10/2002 06/22/2017 Arthritis, rheumatoid 2017 DIABETES-ANTEPARTUM 06/23/19 18 documented as of this encounter (statuses as of 08/27/2023) Immunizations Name Administration Dates Next Due COVID-19 [...] (Menactra) 03/13/2018 Pneumococcal Conjugate Vacci ne, 20-valent ([id number]) 04/06/2022 SARS-COV-2 (COVID-19) Vaccine Unspecified 2021 Seasonal [...] 08/27/2023 8:42 AM EDT Please see patient's [employer] reply. Referrals placed. Scheduling please assist. * Telephone Encounter - Gordo Dan LPN - 08/26/2023 12:10 PM EDT Sent patient a CDEL message to make aware. Awaiting reply to place referrals, ----- Message from Kaushal Solis sent at 08/25/2023 4:55 PM EDT ----- Cardiac MRI suggests hypertrophic cardiomyopathy. Zio monitor pending Refer to the hypertrophic cardiomyopathy clinic at [facility] and [facility]. documented in this encounter Plan of Treatment Upcoming Encounters Date Type Department Care Team (Late st Contact Info) Description 09/21/2023 3:40 PM EDT Office Visit Sleep Disorders Ctr [facility] [address] [place] [phone] Patricia Guevara DO [address] [place] [address] 10/19/2023 1:30 PM EDT Office Visit Cardiology, [facility] [address] [place] [address] Kaushal Solis PA-C 132 [facility] [place] [address] 12/24/2023 1:00 PM EDT Imaging Radiology [facility] 1st [facility] 132 [facility] [place] [address] 01/10/2024 10:00 AM EST Laboratory Laboratory, [address] [phone] [address] [address] 01/14/2024 4:00 PM EST Office Visit Hematology/Oncology [facility] 200 [facility] [place] [phone] Fatimah Quintero CRNP [address] [place] [address] 01/17/2024 3:00 PM EST Office Visit General Internal Medicine [facility] 200 [facility] [place] [address] Raven Agrawal MD 200 [facility] [place] [address] Scheduled Procedures Name Priority Associated Diagnoses Date/Ti [...] Additional history exists Influenza Vaccine (FLU shot) (Season Ended) 2023 01/03/2019, 01/03/2019, 01/31/2013, Additional history exists [...] Cardiomegaly documented in this encounter Care Teams Patient Care Coordinator Relationship Specialty Start Date End Date Raven Agrawal MD [address] [place] [address] PCP - General Internal Medicine 12/27/17 documented as of this encounter
--- OUTSIDE RECORDS SUMMARY | 2023-09-17 22:31 | External Medical Summary | Summary of Care ---
Author Name Unknown Organization [facility] Address [address] [place] [facility] [place] [place] [address] Phone [phone] Care Team Providers Care Checkerer Hand Name Role Phone Raven Agrawal MD Primary Care Provider [phone] Reason for Referral * Evaluate & Treat - Unlimited Visits (Within 10 days (routine)) - Pending Review Specialty Diagnoses / Procedures Referred By Adam washington Referred To Contact Cardiovascular Medicine / Cardiology Diagnoses Abnormal MRI LVH (left ventricular hypertrophy) Kaushal Solis PA-C [address] [place] [address] Referral ID Status Reason Start Date Expiration Date Visits Requested Visits Authorized [id number] Pending Review Specialty Services Required 08/27/2023 999 [...] (left ventricular hypertrophy) Kaushal Solis PA-C [address] [place] [address] Referral ID Status Reason Start Date Expiration Date Visits Requested Visits Authorized [id number] Pending Review Specialty Services Required 08/27/2023 999 [...] st Contact Info) Description 08/26/2023 Telephone Cardiology, [facility] [address] [place] [address] Kaushal Solis PA-C [address] [place] [address] Test Results Allergies No known active allergiesdocumented [...] use of insulin ([facility]) Use upto twice daily [...] current use of insulin ([facility]),Mixed dyslipidemia Take 1 Tablet [...] use disorder 06/09/2018 Elevated hemoglobin 04/04/2018 Overview: 04/1943-FiEarm-aml EPO, ferritin,Tsat, neg JAK2 mutn LVH (left ventricular hypert rophy) due to hypertensive disease, without heart failure 12/27/2017 Overview: 06/1779-lyea-gw56%, no WMabn,mild A Scl,gr 2 DD HTN, [...] Project. Pt is a participant in the [facility] (Consortium of Rheumatology Researchers of [place]) national data collection study. For further information please call Dr Alban Del Real or Tata Meeks, RN, CCRC at [phone] [facility] RESEARCH OTHER*[id number] 04/12/2003 08/26/2009 Overview: Renamed Per Clinical Trials Billing Project. Pt is a participant in the [facility] (Consortium of Rheumatology Researchers of [place]) national data collection study. For further information please call Dr Alban Del Real or Tata Meeks, RN, CCRC at [phone] ABN CERVIX NEC-ANTEPART 11/24/200205/31 Elderly multigravida with [...] (Menactra) 03/13/2018 Pneumococcal Conjugate Vacci ne, 20-valent ([id number]) 04/06/2022 Pneumococcal Polysaccharide PPV23 (Pneumovax) 03/16/2005 SARS-COV-2 [...] Telephone Encounter - Kaushal Solis PA-C - 08/27/2023 4:49 PM EDT * Telephone Encounter - Gordo Dan LPN - 08/27/2023 4:02 PM EDT Please see patient's MyChart message. * Telephone Encounter - Rlyey Loza OSA - 08/27/2023 9:44 AM EDT Called patient, LM to call back to schedule. * Telephone Encounter - Gordo Dan LPN - 08/27/2023 8:42 AM EDT Please see patient's MyChart reply. Referrals placed. Scheduling please assist. * Telephone Encounter - Gordo Dan LPN - 08/26/2023 12:10 PM EDT Sent patient a Cloud [employer] message to make aware. Awaiting reply to place referrals, ----- Message from Kaushal Solis sent at 08/25/2023 4:55 PM EDT ----- Cardiac MRI suggests hypertrophic cardiomyopathy. Zio monitor pending Refer to the hypertrophic cardiomyopathy clinic at [facility] and [facility]. documented in this encounter Plan of Treatment Upcoming Encounters Date Type Department Care Team (Late st Contact Info) Description 09/21/2023 3:40 PM EDT Office Visit Sleep Disorders Ctr [facility] [address] [place] [phone] Patricia Guevara DO [address] [place] [address] 10/19/2023 1:30 PM EDT Office Visit Cardiology, [facility] [address] [place] [address] Kaushal Solis PA-C [address] [place] [address] 12/24/2023 1:00 PM EDT Imaging Radiology [facility]st [facility] [address] [place] [address] 01/10/2024 10:00 AM EST Laboratory Laboratory, [facility] [place] [phone] [facility] 132 [facility] [place] [address] 01/14/2024 4:00 PM EST Office Visit Hematology/Oncology [address] [phone] Fatimah Quintero CRNP [address] [place] [address] 01/17/2024 3:00 PM EST Office Visit General Internal Medicine [address] [place] [address] Raven Agrawal MD [address] [facility] [place] [address] Scheduled Procedures Name Priority Associated Diagnoses Date/Ti [...] 04/03/2022, Additional history exists B-12 07/19/2024 07/20/2023, 08/2022, 03/27/2021, Additional history exists O2 ASSESSMENT [...] Cardiomegaly documented in this encounter Care Teams Checkerer Hand Relationship Specialty Start Date End Date Raven Agrawal MD 200 [facility] [place] [address] PCP - General Internal Medicine 12/27/17 documented as of this encounter
--- OUTSIDE RECORDS SUMMARY | 2023-09-17 22:31 | External Medical Summary | Summary of Care ---
Author Name Unknown Organization [facility] Address [address] [place] [facility] [place] [address] Phone [phone] Care Team Providers Care Chain Dyer Name Role Phone Raven Agrawal MD Primary Care Provider [phone] Reason for Referral * Evaluate & Treat - Unlimited Visits (Within 10 days (routine)) - Pending Review Specialty Diagnoses / Procedures Referred By Adam washington Referred To Contact Cardiovascular Medicine / Cardiology Diagnoses Abnormal MRI LVH (left ventricular hypertrophy) Kaushal Solis PA-C [address] [employer] [place] [address] Referral ID Status Reason Start Date Expiration Date Visits Requested Visits Authorized [id number] Pending Review Specialty Services Required 08/27/2023 999 [...] (left ventricular hypertrophy) Kaushal Solis PA-C [address] [place] [address] Referral ID Status Reason Start Date Expiration Date Visits Requested Visits Authorized [id number] Pending Review Specialty Services Required 08/27/2023 999 [...] st Contact Info) Description 08/26/2023 Telephone Cardiology, [facility] [address] [place] [address] Kaushal Solis PA-C [address] [place] [address] Test Results Allergies No known active allergiesdocumented [...] of insulin ([facility]),Mixed dyslipidemia Take 1 Tablet by [...] use disorder 06/09/2018 Elevated hemoglobin 04/04/2018 Overview: 04/1996-GsAjpd-uno EPO, ferritin,Tsat, neg JAK2 mutn LVH (left ventricular hypert rophy) due to hypertensive disease, without heart failure 12/27/2017 Overview: 06/1767-lffr-hq43%, no WMabn,mild A Scl,gr 2 DD HTN, [...] Project. Pt is a participant in the [facility] (Consortium of Rheumatology Researchers of [place]) national data collection study. For further information please call Dr Alban Del Real or Tata Meeks, RN, CCRC at [phone] [facility] RESEARCH OTHER*[id number] 04/12/2003 08/26/2009 Overview: Renamed Per Clinical Trials Billing Project. Pt is a participant in the [facility] (Consortium of Rheumatology Researchers of [place]) national data collection study. For further information please call Dr Alban Del Real or Tata Meeks, RN, CCRC at [phone] ABN CERVIX NEC-ANTEPART 11/24/200205/31 Elderly multigravida with [...] (Menactra) 03/13/2018 Pneumococcal Conjugate Vacci ne, 20-valent ([id number]) 04/06/2022 Pneumococcal Polysaccharide PPV23 (Pneumovax) 03/16/2005 SARS-COV-2 [...] encounter Miscellaneous Notes * Telephone Encounter - Ryley Loza OSA - 08/27/2023 9:44 AM EDT Called patient, LM to call back to schedule. * Telephone Encounter - Gordo Dan LPN - 08/27/2023 8:42 AM EDT Please see patient's MyChart reply. Referrals placed. Scheduling please assist. * Telephone Encounter - Gordo Dan LPN - 08/26/2023 12:10 PM EDT Sent patient a Twitch message to make aware. Awaiting reply to place referrals, ----- Message from Kaushal Solis sent at 08/25/2023 4:55 PM EDT ----- Cardiac MRI suggests hypertrophic cardiomyopathy. Zio monitor pending Refer to the hypertrophic cardiomyopathy clinic at [facility] and [employer]. documented in this encounter Plan of Treatment Upcoming Encounters Date Type Department Care Team (Late st Contact Info) Description 09/21/2023 3:40 PM EDT Office Visit Sleep Disorders Ctr [facility] [address] [place] [phone] Patricia Guevara, DO [address] [place] [address] 10/19/2023 1:30 PM EDT Office Visit Cardiology, [facility] [address] [place] [address] Kaushal Solis PA-C [address] [place], [place] [address] 12/24/2023 1:00 PM EDT Imaging [facility]iology [facility] [place] [address] 01/10/2024 10:00 AM EST Laboratory Laboratory, [facility] 132 [facility] [place] [phone] [facility] 132 [facility] [place] [address] 01/14/2024 4:00 PM EST Office Visit Hematology/Oncology [facility] [place] [phone] Fatimah Quintero CRNP [address] [place] [address] 01/17/2024 3:00 PM EST Office Visit General Internal Medicine [facility] [place] [address] Raven Agrawal MD [address] [place] [address] [place], [place] [address] Scheduled Procedures Name Priority Associated Diagnoses Date/Ti [...] 09/24/2020, 2 05/2017, 03/30/2014, Additional history exists Influenza Vaccine [...] Cardiomegaly documented in this encounter Care Teams Chain Dyer Relationship Specialty Start Date End Date Raven Agrawal MD [address] [place] [address] PCP - General Internal Medicine 12/27/17 documented as of this encounter
--- OUTSIDE RECORDS SUMMARY | 2023-09-17 22:31 | External Medical Summary | Summary of Care ---
Author Name Unknown Organization [facility] Address [address] [facility] [place] [address] Phone [phone] Care Team Providers Care Carpenter Supervisor Wooden Ship Name Role Phone Raven Agrawal MD Primary Care Provider Reason for Visit * Reason Onset Date Comments Test Results 08/26/2023 Encounter Details Date Type Department Care Team (Late st Contact Info) Description 08/26/2023 Telephone Cardiology, [facility] [address] [facility] [place] [address] Kaushal Solis PA-C [address] [place] [address] Test Results Allergies No known active allergiesdocumented as of this encounter (statuses as of 08/26/2023) Medications Medication Sig Dispensed Refills Start Date [...] without long-term current use of insulin ([facility]) TAKE 1 TABLET IN [...] without long-term current use of insulin ([facility]),Cervical spinal stenosis,Cervical spondylosis TAKE 1 CAPSULE BY MOUTH EVERY MORNING 90 Capsule 1 05/03/2023 Active Nicotine 21 MG/24HR Transdermal Patch 24 Hour (Nicoderm CQ) Place 1 Patch topically on the skin daily. 05/16/2023 Active OneTouch Verio In Vitro Strip (Glucose Blood)Indications: Type 2 diabetes mellitus with diabetic neuropathy, without long-term current use of insulin ([facility]) Use upto twice daily E11.9 100 Strip 11 05/19/2023 Active Additional Information Patient not taking.Reported on 07/21/2023 OneTouch Verio w/Device KitIndications:Typ e 2 diabetes mellitus with diabetic neuropathy, without long-term current use of insulin ([facility]) Use upto twice daily E11.9 1 Kit 05/19/2023 Active Additional Information Patient not taking.Reported on 07/21/2023 OneTouch UltraSoft LancetsIndications :Type 2 diabetes mellitus with diabetic neuropathy, without long-term current use of insulin ([facility]) Use upto twice daily [...] A1c goal of less than 7.0% ([facility]),Type 2 diabetes mellitus with diabetic neuropathy, without long-term current use of insulin ([facility]) Take 1 Tablet by mouth daily. 90 Tablet 3 06/13/2023 Active Fluticasone-Umecli din-Vilant 100-62.5-25 MCG/ACT Aerosol Powder Breath Activated (Trelegy Ellipta)Indication s:COPD, moderate ([facility]) Inhale 1 Puff by mouth in the morning. Start 11/27/2022 and stop symbicort (cancel Rx anoro ellipta). 180 Blister Dosing Unit 3 07/21/2023 Active Rosuvastatin Calcium 10 MG Oral Tablet (Crestor)Indicatio ns:Type 2 diabetes mellitus with diabetic neuropathy, without long-term current use of insulin ([facility]),Mixed dyslipidemia Take 1 Tablet [...] without long-term current use of insulin ([facility]) Take 1 Tablet by mouth every evening. [...] as of this encounter (statuses as of 08/26/2023) Active Problems Problem Noted Date Diagnosed Date [...] use disorder 06/09/2018 Elevated hemoglobin 04/04/2018 Overview: 04/1947-NdMehe-vll EPO, ferritin,Tsat, neg JAK2 mutn LVH (left ventricular hypert rophy) due to hypertensive disease, without heart failure 12/27/2017 Overview: 06/1729-jnto-dr09%, no WMabn,mild A Scl,gr 2 DD HTN, [...] as of this encounter (statuses as of 08/26/2023) Resolved Problems Problem Noted Date Diagnosed Date [...] Real or Tata Meeks, RN, CCRC at [phone] [facility] RESEARCH OTHER*[id number] 04/12/2003 08/26/2009 Overview: Renamed Per Clinical Trials Billing Project. Pt is a participant in the [facility] (Consortium of Rheumatology Researchers of [place]) national data collection study. For further information please call Dr Alban Del Real or Tata Meeks, RN, CCRC at [phone] ABN CERVIX NEC-ANTEPART 11/24/200205/31 Elderly multigravida with an tepartum condition or complication 10/10/2002 06/22/2017 Arthritis, rheumatoid 2017 DIABETES-ANTEPARTUM 06/23/19 18 documented as of this encounter (statuses as of 08/26/2023) Immunizations Name Administration Dates Next Due COVID-19 [...] (Menactra) 03/13/2018 Pneumococcal Conjugate Vacci ne, 20-valent ([id number]) 04/06/2022 SARS-COV-2 (COVID-19) Vaccine Unspecified 2021 Seasonal [...] encounter Miscellaneous Notes * Telephone Encounter - Emily Solares CMA - 08/26/2023 12:00 PM EDT My g sent. * Telephone Encounter - Emily Solares CMA - 08/26/2023 11:59 AM EDT ----- Message from Kaushal Solis sent at 08/25/2023 4:47 PM EDT ----- OK documented in this encounter Plan of Treatment Upcoming Encounters Date Type Department Care Team (Late st Contact Info) Description 09/21/2023 3:40 PM EDT Office [facility] [place] [address] [place] [phone] Patricia Guevara DO 132 [place] [address] 10/19/2023 1:30 PM EDT Office Visit Cardiology, [facility] 132 [facility] [place] [address] Kaushal Solis PA-C [facility] [place] [address] 12/24/2023 1:00 PM EDT [facility] [address] [facility] [place] [address] 01/10/2024 10:00 AM EST Laboratory Laboratory, [address] [phone] [facility] [address] 01/14/2024 4:00 PM EST Office Visit Hematology/Oncology [facility] 200 [facility] [place] [phone] Fatimah Quintero CRNP [address] [place] [address] 01/17/2024 3:00 PM EST Office Visit General Internal Medicine [facility] 200 [facility] [place] [address] Ravne Agrawal MD 200 [facility] [place] [address] Scheduled Procedures Name Priority Associated Diagnoses Date/Ti [...] filedocumented as of this encounter Care Teams Carpenter Supervisor Wooden Ship Relationship Specialty Start Date End Date Raven Agrawal MD 200 [facility] [place] [address] PCP - General Internal Medicine 12/27/17 documented as of this encounter
--- OUTSIDE RECORDS SUMMARY | 2023-09-17 22:31 | External Medical Summary | Summary of Care ---
Author Name Unknown Organization [facility] Address [address] [facility] [place] [address] Phone [phone] Care Team Providers Care Protection Consultant Name Role Phone Raven Agrawal MD Primary Care Provider [phone] Encounter Details Date Type Department Care Team (Late st Contact Info) Description 08/24/2023 Telephone Cardiology, [facility] [address] [place] [address] Kaushal Solis PA-Vanessa [address] [place] [address] Allergies No known active allergiesdocumented as of this encounter (statuses as of 08/25/2023) Medications Medication Sig Dispensed Refills Start Date [...] neuropathy, without long-term current use of insulin ([facility]) TAKE 1 TABLET IN MORNING, 1.5 TABLET [...] neuropathy, without long-term current use of insulin ([facility]),Cervical spinal stenosis,Cervical spondylosis TAKE 1 CAPSULE BY MOUTH EVERY MORNING 90 Capsule 1 05/03/2023 Active Nicotine 21 MG/24HR Transdermal Patch 24 Hour (Nicoderm CQ) Place 1 Patch topically on the skin daily. 05/16/2023 Active OneTouch Verio In Vitro Strip (Glucose Blood)Indications: Type 2 diabetes mellitus with diabetic neuropathy, without long-term current use of insulin ([facility]) Use upto twice daily E11.9 100 Strip 11 05/19/2023 Active Additional Information Patient not taking.Reported on 07/21/2023 OneTouch Verio w/Device KitIndications:Typ e 2 diabetes mellitus with diabetic neuropathy, without long-term current use of insulin ([facility]) Use upto twice daily E11.9 1 Kit 05/19/2023 Active Additional Information Patient not taking.Reported on 07/21/2023 OneTouch UltraSoft LancetsIndications :Type 2 diabetes mellitus with diabetic neuropathy, without long-term current use of insulin ([facility]) Use upto twice daily E11.9 100 Each [...] hemoglobin A1c goal of less than 7.0% ([facility]),Type 2 diabetes mellitus with diabetic neuropathy, without long-term current use of insulin ([facility]) Take 1 Tablet by mouth daily. 90 Tablet 3 06/13/2023 Active Fluticasone-Umecli din-Vilant 100-62.5-25 MCG/ACT Aerosol Powder Breath Activated (Trelegy Ellipta)Indication s:COPD, moderate ([facility]) Inhale 1 Puff by mouth in the morning. Start 11/27/2022 and stop symbicort (cancel Rx anoro ellipta). 180 Blister Dosing Unit 3 07/21/2023 Active Rosuvastatin Calcium 10 MG Oral Tablet (Crestor)Indicatio ns:Type 2 diabetes mellitus with diabetic neuropathy, without long-term current use of insulin ([facility]),Mixed dyslipidemia Take 1 Tablet by mouth in [...] neuropathy, without long-term current use of insulin ([facility]) Take 1 Tablet by mouth every evening. [...] as of this encounter (statuses as of 08/25/2023) Active Problems Problem Noted Date Diagnosed Date [...] use disorder 06/09/2018 Elevated hemoglobin 04/04/2018 Overview: 04/1915-SrCjjm-pdk EPO, ferritin,Tsat, neg JAK2 mutn LVH (left ventricular hypert rophy) due to hypertensive disease, without heart failure 12/27/2017 Overview: 06/1790-usrx-bb69%, no WMabn,mild A Scl,gr 2 DD HTN, [...] as of this encounter (statuses as of 08/25/2023) Resolved Problems Problem Noted Date Diagnosed Date [...] Real or Tata Meeks, RN, CCRC at [phone] [facility] RESEARCH OTHER*[id number] 04/12/2003 08/26/2009 Overview: Renamed Per Clinical Trials Billing Project. Pt is a participant in the [facility] (Consortium of Rheumatology Researchers of [place]) national data collection study. For further information please call Dr Alban Del Real or Tata Meeks, RN, CCRC at [phone] ABN CERVIX NEC-ANTEPART 11/24/200205/31 Elderly multigravida with an tepartum condition or complication 10/10/2002 06/22/2017 Arthritis, rheumatoid 2017 DIABETES-ANTEPARTUM 06/23/19 18 documented as of this encounter (statuses as of 08/25/2023) Immunizations Name Administration Dates Next Due COVID-19 [...] (Menactra) 03/13/2018 Pneumococcal Conjugate Vacci ne, 20-valent ([id number]) 04/06/2022 SARS-COV-2 (COVID-19) Vaccine Unspecified 2021 Seasonal [...] Telephone Encounter - Raven Agrawal MD - 08/24/2023 11:45 AM EDT Check what time she ate yesterday, lab drawn at 3 pm., did she take DM pill yesterday? Recent A1c at goal Have her call us with log fbs and 2 hr post dinner sugars tomorrow. Hemoglobin AIC Results: Lab Results Component Value Date/Time HEMOGLOBIN A1C - [facility] 6.7 (H) 07/20/2023 02:59 PM HEMOGLOBIN A1C - [facility] 6.9 (H) 10/05/2022 03:58 PM HEMOGLOBIN A1C - [facility] 6.6 (H) 04/03/2022 02:17 PM HEMOGLOBIN A1C - [facility] 6.8 (H) 03/25/2020 12:28 PM HEMOGLOBIN A1C - [facility] 7.2 (H) 07/04/2019 12:34 PM HEMOGLOBIN A1C - [facility] 7.3 (H) 01/03/2019 01:13 PM * Telephone Encounter - Nba Miles RN - 08/24/2023 11:24 AM EDT Called and left message on phone s the patient identified herself. Reviewed her lab work. Explainedto follow up with PCP in regards to her Blood sugar. * Telephone Encounter - Nba Miles RN - 08/24/2023 11:23 AM EDT ----- Message from Kaushal Solis sent at 08/23/2023 5:33 PM EDT ----- Metabolic panel OK except for a random glucose of 236 mg/dL. documented in this encounter Plan of Treatment Upcoming Encounters Date Type Department Care Team (Late st Contact Info) Description 09/21/2023 3:40 PM EDT Office Visit [facility] [address] [place] [phone] Patricia Guevara DO [address] [place] [address] 10/19/2023 1:30 PM EDT Office Visit Cardiology, [facility] [address] [place] [address] Kaushal Solis PA-C [address] [place] [address] 12/24/2023 1:00 PM EDT Imaging Radiology [facility] [address] [place] [address] 01/10/2024 10:00 AM EST Laboratory Laboratory, [facility] [address] [place] [phone] [facility] [address] [place] [address] 01/14/2024 4:00 PM EST Office Visit Hematology/Oncology [facility] [address] [place] [phone] Fatimah Quintero CRNP [address] [place] [address] 01/17/2024 3:00 PM EST Office Visit General Internal Medicine [facility] [place] 200 [facility] [place] [address] Raven Agrawal MD 200 [facility] [place] [address] Scheduled Procedures Name Priority Associated Diagnoses Date/Ti [...] 01/31/2013, Additional history exists Mammogram 12/18/2023 12/17/2022, 06/2021, 10/09/2020, Additional history exists HbA1c 01/20/2024 07/20/2023, 080 08/2022, 04/03/2022, Additional history exists B-12 07/19/2024 07/20/2023, 080 08/2022, 03/27/2021, Additional history exists O2 ASSESSMENT [...] filedocumented as of this encounter Care Teams Protection Consultant Relationship Specialty Start Date End Date Raven Agrawal MD [address] [place] [address] PCP - General Internal Medicine 12/27/17 documented as of this encounter
--- OUTSIDE RECORDS SUMMARY | 2023-09-17 22:31 | External Medical Summary | Summary of Care ---
Author Name Unknown Organization [facility] Address [address] [place] [place] [address] Phone [phone] Care Team Providers Care Brim Buster Name Role Phone Raven Agrawal MD Primary Care Provider [phone] Reason for Referral * Evaluate & Treat - Unlimited Visits (Within 10 days (routine)) - Pending Review Specialty Diagnoses / Procedures Referred By Adam washington Referred To Contact Cardiovascular Medicine / Cardiology Diagnoses Abnormal MRI LVH (left ventricular hypertrophy) Kaushal Solis PA-C [address] [employer] [place] [address] Referral ID Status Reason Start Date Expiration Date Visits Requested Visits Authorized [id number] Pending Review Specialty Services Required 08/27/2023 999 [...] (left ventricular hypertrophy) Kaushal Solis PA-C [address] [place] [address] Referral ID Status Reason Start Date Expiration Date Visits Requested Visits Authorized [id number] Pending Review Specialty Services Required 08/27/2023 999 [...] st Contact Info) Description 08/26/2023 Telephone Cardiology, [facility] [address] [place] [address] Kaushal Solis PA-C [address] [place] [address] Test Results Allergies No known active allergiesdocumented as of this encounter (statuses as of 08/31/2023) Medications Medication Sig Dispensed Refills Start Date [...] long-term current use of insulin ([facility]),Mixed dyslipidemia Take 1 Tablet by [...] as of this encounter (statuses as of 08/31/2023) Active Problems Problem Noted Date Diagnosed Date [...] use disorder 06/09/2018 Elevated hemoglobin 04/04/2018 Overview: 04/1922-HcHqrj-mlx EPO, ferritin,Tsat, neg JAK2 mutn LVH (left ventricular hypert rophy) due to hypertensive disease, without heart failure 12/27/2017 Overview: 06/1704-ahqb-ti15%, no WMabn,mild A Scl,gr 2 DD HTN, [...] as of this encounter (statuses as of 08/31/2023) Resolved Problems Problem Noted Date Diagnosed Date [...] Project. Pt is a participant in the [facility] (Consortium of Rheumatology Researchers of [place]) national data collection study. For further information please call Dr Alban Del Real or Tata Meeks, RN, CCRC at [phone] [facility] RESEARCH OTHER*[id number] 04/12/2003 08/26/2009 Overview: Renamed Per Clinical Trials Billing Project. Pt is a participant in the [facility] (Consortium of Rheumatology Researchers of [place]) national data collection study. For further information please call Dr Alban Del Real or Tata Meeks, RN, CCRC at [phone] ABN CERVIX NEC-ANTEPART 11/24/200205/31 Elderly multigravida with an tepartum condition or complication 10/10/2002 06/22/2017 Arthritis, rheumatoid 2017 DIABETES-ANTEPARTUM 06/23/19 18 documented as of this encounter (statuses as of 08/31/2023) Immunizations Name Administration Dates Next Due COVID-19 [...] (Menactra) 03/13/2018 Pneumococcal Conjugate Vacci ne, 20-valent ([id number]) 04/06/2022 Pneumococcal Polysaccharide PPV23 (Pneumovax) 03/16/2005 SARS-COV-2 [...] encounter Miscellaneous Notes * Telephone Encounter - Radhika Camara OSA - 08/31/2023 4:29 PM EDT Person calling: Patient Relationship to patient: self Number to return call: [phone] Reason for call(brief): Referral Pharmacy: n/a Provider Name: Kaushal Solis PA-C Detailed message to office: Pt currently has order placed for [facility]. 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 Please advise. * Telephone Encounter - Gordo Dan LPN - 08/27/2023 4:02 PM EDT Please see patient's [employer] message. * Telephone Encounter - Ryley Loza OSA - 08/27/2023 9:44 AM EDT Called patient, LM to call back to schedule. * Telephone Encounter - Gordo Dan LPN - 08/27/2023 8:42 AM EDT Please see patient's MyChart reply. Referrals placed. Scheduling please assist. * Telephone Encounter - Gordo Dan LPN - 08/26/2023 12:10 PM EDT Sent patient a [employer] message to make aware. Awaiting reply to place referrals, ----- Message from Kaushal Solis sent at 08/25/2023 4:55 PM EDT ----- Cardiac MRI suggests hypertrophic cardiomyopathy. Zio monitor pending Refer to the hypertrophic cardiomyopathy clinic at [facility]. documented in this encounter Plan of Treatment Upcoming Encounters Date Type Department Care Team (Late st Contact Info) Description 09/21/2023 3:40 PM EDT Office Visit [facility] Disorders Ctr [facility] [address] [place] [phone] Patricia Guevara DO [address] [place] [address] 10/19/2023 1:30 PM EDT Office Visit Cardiology, [facility] [address] [place] [address] Kaushal Solis PA-C [address] [place] [address] 12/24/2023 1:00 PM EDT [facility] [address] [place] [address] 01/10/2024 10:00 AM EST Laboratory Laboratory, [facility] [address] [place] [phone] [facility] [address] [place] [address] 01/14/2024 4:00 PM EST Office Visit Hematology/Oncology [facility] [address] [place] [phone] Fatimah Quintero CRNP 400 [place] [address] 01/17/2024 3:00 PM EST Office [facility] [place] [facility] [address] [place] [address] Raven Agrawal MD [address] [place] [address] 02/01/2024 8:00 AM EST Office Visit Cardiology [facility] [address] [place] [address] Frnacisco Brian MD [address] [place] [address] Scheduled Procedures Name Priority Associated Diagnoses Date/Ti [...] Cardiomegaly documented in this encounter Care Teams Brim Buster Relationship Specialty Start Date End Date Raven Agrawal MD 200 [place] [address] PCP - General Internal Medicine 12/27/17 documented as of this encounter
--- OUTSIDE RECORDS SUMMARY | 2023-09-17 22:31 | External Medical Summary | Summary of Care ---
Author Name Unknown Organization [facility] Address [address] [place] [address] Phone [phone] Care Team Providers Care Towel Sewer Name Role Phone Raven Agrawal MD Primary Care Provider [phone] Reason for Referral * Evaluate & Treat - Unlimited Visits (Within 10 days (routine)) - Pending Review Specialty Diagnoses / Procedures Referred By Adam washington Referred To Contact Cardiovascular Medicine / Cardiology Diagnoses Abnormal MRI LVH (left ventricular hypertrophy) Kaushal Solis PA-C [address] [place] [employer] [place] [address] Referral ID Status Reason Start Date Expiration Date Visits Requested Visits Authorized [id number] Pending Review Specialty Services Required 08/27/2023 999 [...] (left ventricular hypertrophy) Kaushal Solis PA-C [address] [place] [address] Referral ID Status Reason Start Date Expiration Date Visits Requested Visits Authorized [id number] Pending Review Specialty Services Required 08/27/2023 999 [...] Contact Info) Description 08/26/2023 Telephone Cardiology, [facility] [address] [place] [address] Kaushal Solis PA-C [address] [place] [address] Test Results Allergies No known active allergiesdocumented [...] neuropathy, without long-term current use of insulin ([facility]) Use upto twice daily E11.9 [...] neuropathy, without long-term current use of insulin ([facility]),Mixed dyslipidemia Take 1 Tablet by [...] use disorder 06/09/2018 Elevated hemoglobin 04/04/2018 Overview: 04/1906-NtNtfq-qad EPO, ferritin,Tsat, neg JAK2 mutn LVH (left ventricular hypert rophy) due to hypertensive disease, without heart failure 12/27/2017 Overview: 06/1742-liac-of37%, no WMabn,mild A Scl,gr 2 DD HTN, [...] Project. Pt is a participant in the [facility] (Consortium of Rheumatology Researchers [place]) national data collection study. For further information please call Dr Alban Del Real or Tata Meeks, RN, CCRC at [phone] [facility] RESEARCH OTHER*[id number] 04/12/2003 08/26/2009 Overview: Renamed Per Clinical Trials Billing Project. Pt is a participant in the [facility] (Consortium of Rheumatology Researchers [place]) national data collection study. For further information please call Dr Alban Del Real or Tata Meeks, RN, CCRC at [phone] ABN CERVIX NEC-ANTEPART 11/24/200205/31 Elderly multigravida with [...] (Menactra) 03/13/2018 Pneumococcal Conjugate Vacci ne, 20-valent ([id number]) 04/06/2022 Pneumococcal Polysaccharide PPV23 (Pneumovax) 03/16/2005 SARS-COV-2 [...] 08/26/2023 12:10 PM EDT Sent patient a [email or web address] message to make aware. Awaiting reply to place referrals, ----- Message from Kaushal Solis sent at 08/25/2023 4:55 PM EDT ----- Cardiac MRI suggests hypertrophic cardiomyopathy. Zio monitor pending Refer to the hypertrophic cardiomyopathy clinic at [facility]. documented in this encounter Plan of Treatment Upcoming Encounters Date Type Department Care Team (Late st Contact Info) Description 09/21/2023 3:40 PM EDT Office Visit [facility] Disorders Ctr [facility] [address] [place] [phone] Patricia Guevara DO [address] [place] [address] 10/19/2023 1:30 PM EDT Office Visit Cardiology, [facility] [address] [place] [address] Kaushal Solis PA-C [address] [place] [address] 12/24/2023 1:00 PM EDT Imaging Radiology [facility] [address] [place] [address] 01/10/2024 10:00 AM EST Laboratory Laboratory, [facility] 132 [facility] [place] [phone] [facility] 132 [facility] [place] [address] 01/14/2024 4:00 PM EST Office Visit Hematology/Oncology [facility] 200 [facility] [place] [phone] Fatimah Quintero CRNP 400 [facility] [place] [address] 01/17/2024 3:00 PM EST Office Visit General Internal Medicine [facility] 200 [facility] [place] [address] Raven Agrawal MD 200 [facility] [place] [address] Scheduled Procedures Name Priority Associated Diagnoses Date/Ti [...] Cardiomegaly documented in this encounter Care Teams Towel Sewer Relationship Specialty Start Date End Date Raven Agrawal MD 200 [place] [address] PCP - General Internal Medicine 12/27/17 documented as of this encounter
--- OUTSIDE RECORDS SUMMARY | 2023-09-17 22:31 | External Medical Summary | Summary of Care ---
Author Name Unknown Organization [facility] Address [address] [place] [address] Phone [phone] Care Team Providers Care Nutrition Helper Name Role Phone Raven Agrawal MD Primary Care Provider [phone] Reason for Referral * Evaluate & Treat - Unlimited Visits (Within 10 days (routine)) - Pending Review Specialty Diagnoses / Procedures Referred By Adam washington Referred To Contact Cardiovascular Medicine / Cardiology Diagnoses Abnormal MRI LVH (left ventricular hypertrophy) Kaushal Solis PA-C [address] [employer] [employer] [place] [address] Referral ID Status Reason Start Date Expiration Date Visits Requested Visits Authorized [id number] Pending Review Specialty Services Required 08/27/2023 999 [...] (left ventricular hypertrophy) Kaushal Solis PA-C [address] [place] [address] Referral ID Status Reason Start Date Expiration Date Visits Requested Visits Authorized [id number] Pending Review Specialty Services Required 08/27/2023 999 [...] st Contact Info) Description 08/26/2023 Telephone Cardiology, [facility] [address] [place] [address] Kaushal Solis PA-C [address] [place] [address] Test Results Allergies No known active allergiesdocumented [...] without long-term current use of insulin ([facility]) Use upto twice daily E11.9 [...] without long-term current use of insulin ([facility]),Mixed dyslipidemia Take 1 Tablet by [...] use disorder 06/09/2018 Elevated hemoglobin 04/04/2018 Overview: 04/1923-DdYoru-tuq EPO, ferritin,Tsat, neg JAK2 mutn LVH (left ventricular hypert rophy) due to hypertensive disease, without heart failure 12/27/2017 Overview: 06/1705-rskg-nf34%, no WMabn,mild A Scl,gr 2 DD HTN, [...] Project. Pt is a participant in the [facility] (Consortium of [employer] [place]) national data collection study. For further information please call Dr Alban Del Real or Tata Meeks, RN, CCRC at [phone] [facility] RESEARCH OTHER*[id number] 04/12/2003 08/26/2009 Overview: Renamed Per Clinical Trials Billing Project. Pt is a participant in the [facility] (Consortium of [employer] [place]) national data collection study. For further information please call Dr Alban Del Real or Tata Meeks, RN, CCRC at [phone] ABN CERVIX NEC-ANTEPART 11/24/200205/31 Elderly multigravida with [...] (Menactra) 03/13/2018 Pneumococcal Conjugate Vacci ne, 20-valent ([id number]) 04/06/2022 Pneumococcal Polysaccharide PPV23 (Pneumovax) 03/16/2005 SARS-COV-2 [...] encounter Miscellaneous Notes * Telephone Encounter - Michelle Reyes OSA - 08/31/2023 8:30 PM EDT Images from the original note were not included. Please correct [facility] order and pick general cardio and put HCM clinic in box * Telephone Encounter - Radhika Camara OSA - 08/31/2023 4:29 PM EDT Person calling: Patient Relationship to patient: self Number to return call: [phone] Reason for call(brief): Referral Pharmacy: n/a Provider [...] 08/26/2023 12:10 PM EDT Sent patient a [employer] message to make aware. Awaiting reply to place referrals, ----- Message from Kaushal Solis sent at 08/25/2023 4:55 PM EDT ----- Cardiac MRI suggests hypertrophic cardiomyopathy. Zio monitor pending Refer to the hypertrophic cardiomyopathy clinic at [facility]. documented in this encounter Plan of Treatment Upcoming Encounters Date Type Department Care Team (Late st Contact Info) Description 09/21/2023 3:40 PM EDT Office Visit Sleep Disorders Ctr [facility] [address] [place] [phone] Patricia Guevara DO [address] [place] [address] 10/19/2023 1:30 PM EDT Office Visit Cardiology, [facility] [address] [place] [address] Kaushal Solis PA-C [address] [place] [address] 12/24/2023 1:00 PM EDT Imaging Radiology [address] [place] [address] 01/10/2024 10:00 AM EST Laboratory Laboratory, [facility] [address] [facility] [place] [phone] [place] [address] [facility] [place] [address] 01/14/2024 4:00 PM EST Office Visit Hematology/Oncology [facility] [address] [facility] [place] [phone] Fatimah Quintero CRNP [address] [facility] [place] [address] 01/17/2024 3:00 PM EST Office Visit General Internal Medicine [facility] [address] [facility] [place] [address] Raven Agrawal MD [address] [facility] [place] [address] 02/01/2024 7:15 AM EST Cardiac Studies Cardiac Studies [facility] [address] [place] [address] [place], Ekg [address] [place] [address] 02/01/2024 8:00 AM EST Office Visit Cardiology [facility] [address] [place] [address] Francisco Brian MD [address] [place], [place] [id number] Scheduled Procedures Name Priority Associated Diagnoses Date/Ti [...] Cardiomegaly documented in this encounter Care Teams Nutrition Helper Relationship Specialty Start Date End Date Raven Agrawal MD [address] [place] [address] PCP - General Internal Medicine 12/27/17 documented as of this encounter
--- OUTSIDE RECORDS SUMMARY | 2023-09-17 22:31 | External Medical Summary | Summary of Care ---
Author Name Unknown Organization [facility] Address [address] [place] [address] Phone [phone] Care Team Providers Care Aerial Planting And Cultivation Manager Name Role Phone Raven Agrawal MD Primary Care Provider [phone] Reason for Referral * Evaluate & Treat - Unlimited Visits (Within 10 days (routine)) - Pending Review Specialty Diagnoses / Procedures Referred By Adam washington Referred To Contact Cardiovascular Medicine / Cardiology Diagnoses Abnormal MRI LVH (left ventricular hypertrophy) Kaushal Solis PA-C [address] [employer] [place] [address] Referral ID Status Reason Start Date Expiration Date Visits Requested Visits Authorized [id number] Pending Review Specialty Services Required 08/27/2023 999 [...] (left ventricular hypertrophy) Kaushal Solis PA-C [address] [employer] [employer] [place] [address] Referral ID Status Reason Start Date Expiration Date Visits Requested Visits Authorized [id number] Pending Review Specialty Services Required 08/27/2023 999 [...] st Contact Info) Description 08/26/2023 Telephone Cardiology, [facility] [address] [place] [address] Kaushal Solis PA-C [address] [place] [address] Test Results Allergies No known active allergiesdocumented [...] insulin ([facility]) Use upto twice daily E11.9 100 Each [...] of insulin ([facility]),Mixed dyslipidemia Take 1 Tablet by mouth in [...] use disorder 06/09/2018 Elevated hemoglobin 04/04/2018 Overview: 04/1935-TpLhmg-eiw EPO, ferritin,Tsat, neg JAK2 mutn LVH (left ventricular hypert rophy) due to hypertensive disease, without heart failure 12/27/2017 Overview: 06/1705-hkvy-xq71%, no WMabn,mild A Scl,gr 2 DD HTN, [...] Project. Pt is a participant in the [facility] (Consortium of Rhe[employer]ology Researchers [place]) national data collection study. For further information please call Dr Alban Del Real or Tata Meeks, RN, CCRC at [phone] [facility] RESEARCH OTHER*[id number] 04/12/2003 08/26/2009 Overview: Renamed Per Clinical Trials Billing Project. Pt is a participant in the [facility] (Consortium of Rhe[employer]ology Researchers [place]) national data collection study. For further information please call Dr Alban Del Real or Tata Meeks, RN, CCRC at [phone] ABN CERVIX NEC-ANTEPART 11/24/200205/31 Elderly multigravida with [...] (Menactra) 03/13/2018 Pneumococcal Conjugate Vacci ne, 20-valent ([id number]) 04/06/2022 Pneumococcal Polysaccharide PPV23 (Pneumovax) 03/16/2005 SARS-COV-2 [...] to patient: self Number to return call: [phone] Reason for call(brief): Referral Pharmacy: n/a Provider [...] 08/26/2023 12:10 PM EDT Sent patient a [employer] message to make aware. Awaiting reply to place referrals, ----- Message from Kaushal Solis sent at 08/25/2023 4:55 PM EDT ----- Cardiac MRI suggests hypertrophic cardiomyopathy. Zio monitor pending Refer to the hypertrophic cardiomyopathy clinic at [facility]. documented in this encounter Plan of Treatment Upcoming Encounters Date Type Department Care Team (Late st Contact Info) Description 09/21/2023 3:40 PM EDT Office Visit Sleep Disorders Ctr [facility] [address] [place] [address] Patricia Guevara DO [address] [place] [address] 10/19/2023 1:30 PM EDT Office Visit Cardiology, [facility] [address] [place] [address] Kaushal Solis PA-C [address] [place] [address] 12/24/2023 1:00 PM EDT Imaging Radiology [address] [place] [address] 01/10/2024 10:00 AM EST Laboratory Laboratory, [facility] [phone] [place] [facility] [address] 01/14/2024 4:00 PM EST Office Visit Hematology/Oncology [facility] [address] [facility] [place] [phone] Fatimah Quintero CRNP [address] [facility] [place] [address] 01/17/2024 3:00 PM EST Office Visit General Internal Medicine [facility] [address] [facility] [place] [address] Raven Agrawal MD [address] [facility] [place] [address] 02/01/2024 7:30 AM EST Cardiac Studies Cardiac Studies [facility] [address] [place] [address] [place], Ekg [address] [place] [address] 02/01/2024 8:00 AM EST Office Visit Cardiology [facility] [address] [place] [address] Francisco Brian MD [address] [place], [place] [id number] Scheduled Procedures Name Priority Associated Diagnoses Date/Ti [...] Cardiomegaly documented in this encounter Care Teams Aerial Planting And Cultivation Manager Relationship Specialty Start Date End Date Raven Agrawal MD 200 [place] [address] PCP - General Internal Medicine 12/27/17 documented as of this encounter
--- OUTSIDE RECORDS SUMMARY | 2023-09-17 22:31 | External Medical Summary | Summary of Care ---
Author Name Unknown Organization [facility] Address [address] [place] [address] Phone [phone] Care Team Providers Care Cartridge Maker Name Role Phone Raven Agrawal MD Primary Care Provider [phone] Reason for Referral * Evaluate & Treat - Unlimited Visits (Within 10 days (routine)) - Pending Review Specialty Diagnoses / Procedures Referred By Adam washington Referred To Contact Cardiovascular Medicine / Cardiology Diagnoses Abnormal MRI LVH (left ventricular hypertrophy) Kaushal Solis PA-C [address] [employer] [place] [address] Referral ID Status Reason Start Date Expiration Date Visits Requested Visits Authorized [id number] Pending Review Specialty Services Required 08/27/2023 999 [...] (left ventricular hypertrophy) Kaushal Solis PA-C [address] [employer] [place] [address] Referral ID Status Reason Start Date Expiration Date Visits Requested Visits Authorized [id number] Pending Review Specialty Services Required 08/27/2023 999 [...] st Contact Info) Description 08/26/2023 Telephone Cardiology, [facility] [address] [place] [address] Kaushal Solis PA-C [address] [place] [address] Test Results Allergies No known active allergiesdocumented [...] without long-term current use of insulin ([facility]) Use upto twice daily E11.9 100 [...] without long-term current use of insulin ([facility]),Mixed dyslipidemia Take 1 Tablet by mouth [...] use disorder 06/09/2018 Elevated hemoglobin 04/04/2018 Overview: 04/1914-CrMpmw-pwg EPO, ferritin,Tsat, neg JAK2 mutn LVH (left ventricular hypert rophy) due to hypertensive disease, without heart failure 12/27/2017 Overview: 06/1740-mvqt-vx10%, no WMabn,mild A Scl,gr 2 DD HTN, [...] Real or Tata Meeks, RN, CCRC at [phone] [facility] RESEARCH OTHER*[id number] 04/12/2003 08/26/2009 Overview: Renamed Per Clinical Trials Billing Project. Pt is a participant in the [facility] (Consortium of Rheumatology Researchers [place]) national data collection study. For further information please call Dr Alban Del Real or Tata Meeks, RN, CCRC at [phone] ABN CERVIX NEC-ANTEPART 11/24/200205/31 Elderly multigravida with [...] (Menactra) 03/13/2018 Pneumococcal Conjugate Vacci ne, 20-valent ([id number]) 04/06/2022 Pneumococcal Polysaccharide PPV23 (Pneumovax) 03/16/2005 SARS-COV-2 [...] 08/26/2023 12:10 PM EDT Sent patient a [employer] message to make aware. Awaiting reply to place referrals, ----- Message from Kaushal Solis sent at 08/25/2023 4:55 PM EDT ----- Cardiac MRI suggests hypertrophic cardiomyopathy. Zio monitor pending Refer to the hypertrophic cardiomyopathy clinic at [facility]. documented in this encounter Plan of Treatment Upcoming Encounters Date Type Department Care Team (Late st Contact Info) Description 09/21/2023 3:40 PM EDT Office Visit Sleep Disorders Ctr [facility] [address] [place] [phone] Patricia Guevara DO [address] [place] [address] 10/19/2023 1:30 PM EDT Office Visit Cardiology, [facility] [address] [place] [address] Kaushal Solis PA-C [address] [place] [address] 12/24/2023 1:00 PM EDT [facility] [address] [place] [address] 01/10/2024 10:00 AM EST Laboratory Laboratory, [facility] 132 [facility] [place] [phone] [facility] 132 [facility] [place] [address] 01/14/2024 4:00 PM EST Office Visit Hematology/Oncology [facility] 200 [facility] [place] [phone] Fatimah Quintero CRNP 400 [facility] [place] [address] 01/17/2024 3:00 PM EST Office Visit General Internal Medicine [facility] [address] [facility] [place] [address] Raven Agrawal MD [address] [facility] [place] [address] Scheduled Procedures Name Priority Associated Diagnoses Date/Ti [...] Cardiomegaly documented in this encounter Care Teams Cartridge Maker Relationship Specialty Start Date End Date Raven Agrawal MD 200 [place] [address] PCP - General Internal Medicine 12/27/17 documented as of this encounter
--- OUTSIDE RECORDS SUMMARY | 2023-09-17 22:32 | External Medical Summary | Summary of Care ---
Author Name Unknown Organization [facility] Address [address] [facility] [place] [address] Phone [phone] Care Team Providers Care Handle Sander Operator Name Role Phone Raven Agrawal MD Primary Care Provider [phone] Reason for Visit * Reason Onset Date Comments Medication Question 08/17/2023 Encounter Details Date Type Department Care Team (Late st Contact Info) Description 08/17/2023 Telephone General Internal Medicine [facility] [place] [address] [facility] [place] [address] Raven Agrawal MD [address] [facility] [place] [address] Medication Question Allergies No known active allergiesdocumented as of this encounter (statuses as of 08/18/2023) Medications Medication Sig Dispensed Refills Start Date End Date Status VITAMIN D 2000 UNIT PO TABS one tablet daily] Active KEVZARA 200 MG/1.14ML SOSY Injection every other week 8 Active Multiple Vitamin (MULTI-DAY) Tablet Take 1 Tab by mouth daily. Active aspirin enteric coated 81 MG TBECIndications: Mixed dyslipidemia,Sub clavian artery stenosis, right (HCC) Take 1 Tab by mouth daily. St 09/16 100 Tab 3 9 Active traMADol (ULTRAM) 50 MG Tablet Take 1 Tablet by mouth daily as needed for Pain. 1 Tab 0 Active zolpidem (AMBIEN) 10 MG TabletIndication s:Persistent insomnia Take 1 Tablet by mouth at bedtime. DrMurphy 7 Tab 0 Active Melatonin ER 1 MG TBCRIndications: Persistent insomnia at bedtime 0 Active Additional Information Patient taking differently: 3 mg Oral HS PRN, Sleep, at bedtime, Reported on 05/19/2023 CPAP every night at bedtime . Active Clobetasol Propionate 0.05 % External Cream (Temovate) Apply topically to affected area 2 times a day. To affected area for up to two weeks. 15 g 1 3 Active Additional Information Patient not taking.Reported on 07/22/2023 Gabapentin 600 MG Oral Tablet (Neurontin)Indic ations:Type 2 diabetes mellitus with diabetic neuropathy, without long-term current use of insulin (HCC) TAKE 1 TABLET IN MORNING, 1.5 TABLET AT NOON AND 1.5 TABLET BEFORE BEDTIME 360 Tablet 1 4 Active Ketoconazole 2 % External CreamIndications :Seborrheic dermatitis Apply to affected areas twice daily-nasolabia l folds x2-4 wks, then as needed 30 g 1 4 Active Additional Information Patient not taking.Reported on 07/21/2023 DULoxetine HCl 60 MG Oral Capsule Delayed Release Particles (Cymbalta)Indica tions:Major depressive disorder with single episode, in remission (HCC),Type 2 diabetes mellitus with diabetic neuropathy, without long-term current use of insulin ([facility]),Cervical spinal stenosis,Cervica l spondylosis TAKE 1 CAPSULE BY MOUTH EVERY MORNING 90 Capsule 1 4 Active Nicotine 21 MG/24HR Transdermal Patch 24 Hour (Nicoderm CQ) Place 1 Patch topically on the skin daily. 4 Active OneTouch Verio In Vitro Strip (Glucose Blood)Indication s:Type 2 diabetes mellitus with diabetic neuropathy, without long-term current use of insulin ([facility]) Use upto twice daily E11.9 100 Strip 11 4 Active Additional Information Patient not taking.Reported on 07/21/2023 OneTouch Verio w/Device KitIndications:T ype 2 diabetes mellitus with diabetic neuropathy, without long-term current use of insulin ([facility]) Use upto twice daily E11.9 1 Kit 4 Active Additional Information Patient not taking.Reported on 07/21/2023 OneTouch UltraSoft LancetsIndicatio ns:Type 2 diabetes mellitus with diabetic neuropathy, without long-term current use of insulin ([facility]) Use upto twice daily E11.9 100 Each 1 4 Active Additional Information Patient not taking.Reported on 07/21/2023 Acetaminophen 500 MG Oral Tablet (Tylenol)Indicat ions:Pubic ramus fracture, unspecified laterality, with routine healing, subsequent encounter,Closed fracture of medial portion of left tibial plateau with routine healing, subsequent encounter,S/P ORIF (open reduction internal fixation) fracture,[facility],Closed fracture of sacrum with routine healing, unspecified fracture morphology, subsequent encounter Take 2 Tablets by mouth every 8 hours as needed for Pain, Moderate. 4 Active Jentadueto XR 5-1000 MG Oral Tablet Extended Release 24 Hour (linaGLIPtin-met FORMIN HCl ER)Indications:T ype 2 diabetes mellitus with hemoglobin A1c goal of less than 7.0% ([facility]),Type 2 diabetes mellitus with diabetic neuropathy, without long-term current use of insulin ([facility]) Take 1 Tablet by mouth daily. 90 Tablet 3 4 Active Fluticasone-Umec lidin-Vilant 100-62.5-25 MCG/ACT Aerosol Powder Breath Activated (Trelegy Ellipta)Indicati ons:COPD, moderate ([facility]) Inhale 1 Puff by mouth in the morning. Start 11/27/2022 and stop symbicort (cancel Rx anoro ellipta). 180 Blister Dosing Unit 3 4 Active Rosuvastatin Calcium 10 MG Oral Tablet (Crestor)Indicat ions:Type 2 diabetes mellitus with diabetic neuropathy, without long-term current use of insulin ([facility]),Mixed dyslipidemia Take 1 Tablet by mouth in the morning. 90 Tablet 3 4 Active Metoprolol Succinate ER 50 MG Oral Tablet Extended Release 24 Hour (toPROL XL)Indications:H TN, goal below 130/80,LVH (left ventricular hypertrophy) due to hypertensive disease, without heart failure Take 1 Tablet by mouth in the morning. 90 Tablet 1 4 Active Lisinopril 20 MG Oral Tablet (Prinivil)Indica tions:LVH (left ventricular hypertrophy) due to hypertensive disease, without heart failure,Type 2 diabetes mellitus with diabetic neuropathy, without long-term current use of insulin ([facility]) Take 1 Tablet by mouth every evening. 90 Tablet 1 4 Active Lisinopril 10 MG Oral Tablet (Prinivil)Indica tions:LVH (left ventricular hypertrophy) due to hypertensive disease, without heart failure,Type 2 diabetes mellitus with hemoglobin A1c goal of less than 7.0% (HCC),HTN, goal below 130/80 Take 2 Tablets by mouth every evening. 4 08/17/19 24 Discontinued Metoprolol Succinate ER 100 MG Oral Tablet Extended Release 24 Hour (toPROL XL)Indications:L VH (left ventricular hypertrophy) due to hypertensive disease, without heart failure,HTN, goal below 130/80 Take 0.5 Tablets by mouth in the morning. --takes at night. 4 08/17/19 24 Discontinued(Ref ill) Hospital, Clinic, or Other Facility Administered Medication Ordered Dose Route Frequency Start Date End Date Status Albuterol Sulfate (Proventil) (2.5 MG/3ML) 0.083% inhalation solution 2.5 mgIndications:COPD, moderate (HCC) 2.5 mg NEBULIZER PRN 12/29/2022 12/29/2023 Active documented as of this encounter (statuses as of 08/18/2023) Active Problems Problem Noted Date Diagnosed Date [...] use disorder 06/09/2018 Elevated hemoglobin 04/04/2018 Overview: 04/1986-QaFdxw-rri EPO, ferritin,Tsat, neg JAK2 mutn LVH (left ventricular hypert rophy) due to hypertensive disease, without heart failure 12/27/2017 Overview: 06/1743-ubgp-ah27%, no WMabn,mild A Scl,gr 2 DD HTN, [...] as of this encounter (statuses as of 08/18/2023) Resolved Problems Problem Noted Date Diagnosed Date [...] Real or Tata Meeks, RN, CCRC at [phone] [employer] [facility] OTHER*[id number] 04/12/2003 08/26/2009 Overview: Renamed Per Clinical Trials Billing Project. Pt is a participant in the [employer] ([employer]ortium of Rheumatology Researchers of [place]) national data collection study. For further information please call Dr Alban Del Real or Tata Meeks RN, CCRC at [phone] ABN CERVIX NEC-ANTEPART 11/24/200205/31 Elderly multigravida with an tepartum condition or complication 10/10/2002 06/22/2017 Arthritis, rheumatoid 2017 DIABETES-ANTEPARTUM 06/23/19 18 documented as of this encounter (statuses as of 08/18/2023) Immunizations Name Administration Dates Next Due COVID-19 [...] (Menactra) 03/13/2018 Pneumococcal Conjugate Vacci ne, 20-valent ([id number]) 04/06/2022 SARS-COV-2 (COVID-19) Vaccine Unspecified 2021 Seasonal [...] encounter Miscellaneous Notes * Telephone Encounter - Zulema Quintero MED ASSIST - 08/18/2023 8:44 AM EDT Called patient, left message to return call. Myg sent * Telephone Encounter - Raven Agrawal MD - 08/17/2023 5:58 PM EDT Done. * Telephone Encounter - Cindy Urbina, event marketing intern - 08/17/2023 4:35 PM EDT Patient has not had either medication for 1 week Patient calling requesting the following medication below that is listed as "Historical". The following information was provided: Medication Name: metoprolol Strength: 50 Directions: 1 po daily Preferred Quantity: 30 Previous Prescriber: Alfonzo Pham MD Preferred Pharmacy: [email or web address] Please review and approve if appropriate. Thank you, Cindy Urbina Residential Life Director [facility] 08/17/2023,4:38 PM patient calling requesting the following medication below that is listed as "Historical". The following information was provided: Medication Name: lisinopril Strength: 20 mg Directions: 1 po daily Preferred Quantity: 30 Previous Prescriber: Alfonzo Pham MD rehab provider Pref[facility]acy: [facility] Please review and approve if appropriate. Thank you, iCndy Urbina Residential Life Director [facility] 08/17/2023,4:36 PM documented in this encounter Plan of Treatment Upcoming Encounters Date Type Department Care Team (Late st Contact Info) Description 08/24/2023 9:30 AM EDT Imaging Radiology [address] [place] [address] 09/21/2023 3:40 PM EDT Office Visit Sleep Disorders Ctr [facility] [address] [place] [phone] Patricia Guevara DO [address] [place] [address] 10/19/2023 1:30 PM EDT Office Visit Cardiology, [facility] [address] [place] [address] Kaushal Solis PA-C [address] [place] [address] 12/24/2023 1:00 PM EDT Imaging Radiology [address] [place] [address] 01/10/2024 10:00 AM EST Laboratory Laboratory, [facility] [address] [place] [phone] [place] [address] [place] [address] 01/14/2024 4:00 PM EST Office Visit Hematology/Oncology [facility] [address] [facility] [place] [phone] Fatimah Quintero CRNP [address] [facility] [place] [address] 01/17/2024 3:00 PM EST Office Visit General Internal Medicine [facility] [address] [facility] [place] [address] Raven Agrawal MD [address] [facility] [place] [address] Scheduled Procedures Name Priority Associated Diagnoses Date/Ti [...] 07/20/2023, 08/0 08/2022, 03/27/2021, Additional history exists GFR 07/19/2024 07/20/2023, 04/29, 05/06/2023, Additional history exists O2 ASSESSMENT COMPLETED IN PAST YEAR FOR COPD 07/20/2024 07/21/2023 Colonoscopy 02/03/2028 02/02/2018, 02/02/2018 Colorectal Cancer Screening [...] as of this encounter Visit Diagnoses Diagnosis HTN, goal below 130/80- Primary Unspecified essential hypertension LVH (left ventricular hypertrophy) due to hypertensive disease, without heart failure Type 2 diabetes mellitus with diabetic neuropathy, without long-term current use of insulin (HCC) documented in this encounter Care Teams Handle Sander Operator Relationship Specialty Start Date End Date Raven Agrawal MD [address] [facility] [place] [address] PCP - General Internal Medicine 12/27/17 documented as of this encounter
--- OUTSIDE RECORDS SUMMARY | 2023-09-17 22:32 | External Medical Summary | Summary of Care ---
Author Name Unknown Organization [facility] Address [address] [facility] [place] [address] Phone [phone] Care Team Providers Care Armament Aircraft Mechanic Name Role Phone Raven Agrawal MD Primary Care Provider [phone] Reason for Referral * Precert (Within 24 hrs (call dept; emergent)) - Pending Review Specialty Diagnoses / Procedures Referred By Adam wasihngton Referred To Contact Radiology Diagnoses Mass of submandibular region Procedures CT NECK W CONTRAST Fatimah Quintero CRNP [address] [place] [id number] Referral ID Status Reason Start Date Expiration Date V isits Requested Visits Authorized [id number] Pending Review 07/22/2023 999 999 Reason for Visit * Reason Onset Date Comments Test Results 07/21/2023 US HEAD AND NECK Encounter Details Date Type Department Care Team (Late st Contact Info) Description 07/21/2023 Telephone Hematology/Oncology [facility] [place] [address] [facility] [place] [address] Fatimah Quintero CRNP [address] [place] [id number] Test Results (US HEAD AND NECK) Allergies No known active allergiesdocumented as of this encounter (statuses as of 07/23/2023) Medications Medication Sig Dispensed Refills Start Date End Date Status VITAMIN D 2000 UNIT PO TABS one tablet daily] Active KEVZARA 200 MG/1.14ML SOSY Injection every other week 8 Active Multiple Vitamin (MULTI-DAY) Tablet Take 1 Tab by mouth daily. Active aspirin enteric coated 81 MG TBECIndications:M ixed dyslipidemia,Subc lavian artery stenosis, right (HCC) Take 1 Tab by mouth daily. St 09/16 100 Tab 3 9 Active traMADol (ULTRAM) 50 MG Tablet Take 1 Tablet by mouth daily as needed for Pain. 1 Tab 0 Active zolpidem (AMBIEN) 10 MG TabletIndications :Persistent insomnia Take 1 Tablet by mouth at bedtime. DrMurphy 7 Tab 0 Active Melatonin ER 1 MG TBCRIndications:P ersistent insomnia at bedtime 0 Active Additional Information [...] Additional Information Patient not taking.Reported on 07/22/2023 Rosuvastatin Calcium 10 MG Oral Tablet (Crestor)Indicati ons:Type 2 diabetes mellitus with diabetic neuropathy, without long-term current use of insulin ([facility]),Mixed dyslipidemia TAKE 1 TABLET BY MOUTH EVERY DAY 90 Tablet 2 3 Active Gabapentin 600 MG Oral Tablet (Neurontin)Indica tions:Type 2 diabetes mellitus with diabetic neuropathy, without long-term current use of insulin ([facility]) TAKE 1 TABLET IN MORNING, 1.5 TABLET AT NOON AND 1.5 TABLET BEFORE BEDTIME 360 Tablet 1 4 Active Ketoconazole 2 % External CreamIndications: Seborrheic dermatitis Apply to affected areas twice daily-nasolabial folds x2-4 wks, then as needed 30 g 1 4 Active Additional Information Patient not taking.Reported on 07/21/2023 DULoxetine HCl 60 MG Oral Capsule Delayed Release Particles (Cymbalta)Indicat ions:Major depressive disorder with single episode, in remission ([facility]),Type 2 diabetes mellitus with diabetic neuropathy, without long-term current use of insulin ([facility]),Cervical spinal stenosis,Cervical spondylosis TAKE 1 CAPSULE BY MOUTH EVERY MORNING 90 Capsule 1 4 Active Nicotine 21 MG/24HR Transdermal Patch 24 Hour (Nicoderm CQ) Place 1 Patch topically on the skin daily. 4 Active OneTouch Verio In Vitro Strip (Glucose Blood)Indications :Type 2 diabetes mellitus with diabetic neuropathy, without long-term current use of insulin (HCC) Use upto twice daily E11.9 100 Strip 11 4 Active Additional Information Patient not taking.Reported on 07/21/2023 OneTouch Verio w/Device KitIndications:Ty pe 2 diabetes mellitus with diabetic neuropathy, without long-term current use of insulin (HCC) Use upto twice daily E11.9 1 Kit 4 Active Additional Information Patient not taking.Reported on 07/21/2023 OneTouch UltraSoft LancetsIndication s:Type 2 diabetes mellitus with diabetic neuropathy, without long-term current use of insulin (HCC) Use upto twice daily E11.9 100 Each 1 4 Active Additional Information Patient not taking.Reported on 07/21/2023 Lisinopril 10 MG Oral Tablet (Prinivil)Indicat ions:LVH (left ventricular hypertrophy) due to hypertensive disease, without heart failure,Type 2 diabetes mellitus with hemoglobin A1c goal of less than 7.0% ([facility]),HTN, goal below 130/80 Take 2 Tablets by mouth every evening. 4 Active Metoprolol Succinate ER 100 MG Oral Tablet Extended Release 24 Hour (toPROL XL)Indications:LV H (left ventricular hypertrophy) due to hypertensive disease, without heart failure,HTN, goal below 130/80 Take 0.5 Tablets by mouth in the morning. --takes at night. 4 Active Acetaminophen 500 MG Oral Tablet (Tylenol)Indicati ons:Pubic ramus fracture, unspecified laterality, with routine healing, [...] MG Oral Tablet Extended Release 24 Hour (linaGLIPtin-metF ORMIN HCl ER)Indications:Ty pe 2 diabetes mellitus with hemoglobin A1c goal of less than 7.0% (HCC),Type 2 diabetes mellitus with diabetic neuropathy, without long-term current use of insulin (HCC) Take 1 Tablet by mouth daily. 90 Tablet 3 4 Active Fluticasone-Umecl idin-Vilant 100-62.5-25 MCG/ACT Aerosol Powder Breath Activated (Trelegy Ellipta)Indicatio ns:COPD, moderate (HCC) Inhale 1 Puff by mouth in the morning. Start 11/27/2022 and stop symbicort (cancel Rx anoro ellipta). 180 Blister Dosing Unit 3 4 Active amLODIPine Besylate 2.5 MG Oral Tablet (Norvasc)Indicati ons:HTN, goal below 130/80,LVH (left ventricular hypertrophy) due to hypertensive disease, without heart failure TAKE 1 TABLET BY MOUTH EVERY DAY 90 Tablet 4 3 07/22/19 24 Discontinued Hospital, Clinic, or Other Facility Administered Medication Ordered Dose Route Frequency Start Date End Date Status Albuterol Sulfate (Proventil) (2.5 MG/3ML) 0.083% inhalation solution 2.5 mgIndications:COPD, moderate (HCC) 2.5 mg NEBULIZER PRN 12/29/2022 12/29/2023 Active documented as of this encounter (statuses as of 07/23/2023) Active Problems Problem Noted Date Diagnosed Date [...] use disorder 06/09/2018 Elevated hemoglobin 04/04/2018 Overview: 04/1926-IzUapg-cef EPO, ferritin,Tsat, neg JAK2 mutn LVH (left ventricular hypert rophy) due to hypertensive disease, without heart failure 12/27/2017 Overview: 06/1744-kvgb-re27%, no WMabn,mild A Scl,gr 2 DD HTN, [...] as of this encounter (statuses as of 07/23/2023) Resolved Problems Problem Noted Date Diagnosed Date [...] Real or Tata Meeks, RN, CCRC at [phone] [facility] RESEARCH OTHER*[id number] 04/12/2003 08/26/2009 Overview: Renamed Per Clinical Trials Billing Project. Pt is a participant in the [facility] ([facility] of Rheumatology Researchers of [facility]) national data collection study. For further information please call Dr Alban Del Real or Tata Meeks, RN, CCRC at [phone] ABN CERVIX NEC-ANTEPART 11/24/200205/31 Elderly multigravida with an tepartum condition or complication 10/10/2002 06/22/2017 Arthritis, rheumatoid 2017 DIABETES-ANTEPARTUM 06/23/19 18 documented as of this encounter (statuses as of 07/23/2023) Immunizations Name Administration Dates Next Due COVID-19 [...] (Menactra) 03/13/2018 Pneumococcal Conjugate Vacci ne, 20-valent ([id number]) 04/06/2022 Pneumococcal Polysaccharide PPV23 (Pneumovax) 03/16/2005 SARS-COV-2 [...] Telephone Encounter - Any Caceres OSA - 07/23/2023 10:28 AM EDT Called x2 left message * Telephone Encounter - Any Caceres OSA - 07/22/2023 1:58 PM EDT Left message * Telephone Encounter - Fatimah Quintero CRNP - 07/22/2023 1:43 PM EDT Called patient to review results. Order placed for CT neck as recommended as mass was not able to be adequately characterized on U/S. Further recommendations based on results. Patient verbalized understanding. Please assist patient with scheduling. * Telephone Encounter - Kiya [place] TECH - 07/21/2023 5:[address]- The radiologist discovered an unexpected or indeterminate finding on Aura Hardy ([id number]) andasks that you review the following report. Study Type:US HEAD AND NECK Date of Study: 07/21/2023 IMPRESSION The patient's palpable lump corresponds to a superficial hyperechoic mass with cystic spaces measuring 0.9 x 0.4 x 1.0 cm, nonspecific, not further characterized on this exam. Consider further evaluation with a contrast-enhanced neck CT or biopsy. Please respond to this encounter to acknowledge receipt of this message and take responsibility to ensure this report is reviewed. Thank you, MAHAD Bassett Client Service Rep Diagnostic Medicine [place] documented in this encounter Plan of Treatment Upcoming Encounters Date Type Department Care Team (Late st Contact Info) Description 09/21/2023 3:40 PM EDT Office Visit Sleep Disorders Ctr [facility] [address] [place] [phone] Patricia Guevara DO [address] [place] [address] 10/19/2023 1:30 PM EDT Office Visit Cardiology, [facility] [address] [place] [address] Kaushal Solis PA-C [address] [place] [address] 12/24/2023 1:00 PM EDT Imaging Radiology [facility] 1st Floor, [place] [address] [place] [address] 01/10/2024 10:00 AM EST Laboratory Laboratory, [facility] [address] [place] [phone] Cam Israel Tl [address] [facility] [place] [address] 01/14/2024 4:00 PM EST Office Visit Hematology/Oncology [facility] [address] [facility] [place] [phone] Fatimah Quintero CRNP [address] [facility] [place] [address] 01/17/2024 3:00 PM EST Office Visit General Internal Medicine [facility] [address] [facility] [place] [address] Raven Agrawal MD [address] [facility] [place] [address] Scheduled Orders Name Type Priority Associated Diagnoses Orde r Schedule CT NECK W CONTRAST Medical Imaging STAT Mass of submandibular region Ordered: 07/22/2023 Scheduled Procedures Name Priority Associated Diagnoses Date/Ti [...] 07/20/2023, 080 08/2022, 03/27/2021, Additional history exists GFR 07/19/2024 [...] as of this encounter Visit Diagnoses Diagnosis Mass of submandibular region- Primary Swelling, mass, or lump in head and neck documented in this encounter Care Teams Armament Aircraft Mechanic Relationship Specialty Start Date End Date Raven Agrawal MD [address] [place] [address] PCP - General Internal Medicine 12/27/17 documented as of this encounter
--- OUTSIDE RECORDS SUMMARY | 2023-09-17 22:32 | External Medical Summary | Summary of Care ---
Author Name Unknown Organization [facility] Address [address] [facility] [place] [address] Phone [phone] Care Team Providers Care Cake Puncher Name Role Phone Raven Agrawal MD Primary Care Provider [phone] Reason for Referral * Precert (Within 24 hrs (call dept; emergent)) - Pending Review Specialty Diagnoses / Procedures Referred By Adam washington Referred To Contact Radiology Diagnoses Mass of submandibular region Procedures CT NECK W CONTRAST Fatimah Quintero CRNP [address] [place] [id number] Referral ID Status Reason Start Date Expiration Date V isits Requested Visits Authorized [id number] Pending Review 07/22/2023 999 999 Reason for Visit * Reason Onset Date Comments Test Results 07/21/2023 US HEAD AND NECK Encounter Details Date Type Department Care Team (Late st Contact Info) Description 07/21/2023 Telephone Hematology/Oncology [facility] [address] [facility] [place] [address] Fatimah Quintero CRNP [address] [place] [address] Test Results (US HEAD AND NECK) Allergies No known active allergiesdocumented as of this encounter (statuses as of 07/28/2023) Medications Medication Sig Dispensed Refills Start Date [...] of insulin ([facility]),Mixed dyslipidemia TAKE 1 TABLET [...] disorder with single episode, in remission ([facility]),Type 2 diabetes mellitus [...] of less than 7.0% ([facility]),HTN, goal below 130/80 Take [...] as of this encounter (statuses as of 07/28/2023) Active Problems Problem Noted Date Diagnosed Date [...] use disorder 06/09/2018 Elevated hemoglobin 04/04/2018 Overview: 04/1962-VzBwjv-zsc EPO, ferritin,Tsat, neg JAK2 mutn LVH (left ventricular hypert rophy) due to hypertensive disease, without heart failure 12/27/2017 Overview: 06/1745-vucq-do65%, no WMabn,mild A Scl,gr 2 DD HTN, [...] as of this encounter (statuses as of 07/28/2023) Resolved Problems Problem Noted Date Diagnosed Date [...] Real or Tata Meeks, RN, CCRC at [phone] [facility] RESEARCH OTHER*[id number] 04/12/2003 08/26/2009 Overview: Renamed Per Clinical Trials Billing Project. Pt is a participant in the [facility] ([facility]) national data collection study. For further information please call Dr Alban Del Real or Tata Meeks, RN, CCRC at [phone] ABN CERVIX NEC-ANTEPART 11/24/200205/31 Elderly multigravida with an tepartum condition or complication 10/10/2002 06/22/2017 Arthritis, rheumatoid 2017 DIABETES-ANTEPARTUM 06/23/19 18 documented as of this encounter (statuses as of 07/28/2023) Immunizations Name Administration Dates Next Due COVID-19 [...] (Menactra) 03/13/2018 Pneumococcal Conjugate Vacci ne, 20-valent ([id number]) 04/06/2022 Pneumococcal Polysaccharide PPV23 (Pneumovax) 03/16/2005 SARS-COV-2 [...] Telephone Encounter - Any Caceres OSA - 07/27/2023 8:37 AM EDT Called x3 left message and my g sent * Telephone Encounter - Any Caceres OSA [...] Rodriguez TECH - 07/21/2023 5:27 PM EDT Hello- The radiologist discovered an unexpected or indeterminate finding on Aura Hardy ([id number]) andasks that you review the following report. [...] MAHAD Bassett Client Service Rep Diagnostic Medicine [place] documented in this encounter Plan of Treatment Upcoming Encounters Date Type Department Care Team (Late st Contact Info) Description 09/21/2023 3:40 PM EDT Office Visit Sleep Disorders Ctr [facility] [address] [place] [phone] Patricia Guevara DO [address] [place] [address] 10/19/2023 1:30 PM EDT [facility] [address] [place] [address] Kaushal Solis PA-C [address] [place] [address] 12/24/2023 1:00 PM EDT Imaging Radiology [facility]st [facility] 132 [facility] [place] [address] 01/10/2024 10:00 AM EST Laboratory Laboratory, [facility] 132 [facility] [place] [address] [facility] 132 [facility] [place] [address] 01/14/2024 4:00 PM EST Office Visit Hematology/Oncology [facility] [address] [facility] [place] [phone] Fatimah [facility]inter[facility]NP [facility] [address] 01/17/2024 3:00 PM EST Office Visit General Internal Medicine [facility] [address] [facility] [place] [address] Raven Agrawal MD [facility] [place] [address] Scheduled Orders Name Type Priority Associated Diagnoses [...] neck documented in this encounter Care Teams Cake Puncher Relationship Specialty Start Date End Date Raven Agrawal MD [address] [place] [address] PCP - General Internal Medicine 12/27/17 documented as of this encounter
--- OUTSIDE RECORDS SUMMARY | 2023-09-17 22:32 | External Medical Summary | Summary of Care ---
Author Name Unknown Organization [facility] Address [address] [facility] [place] [address] Phone [phone] Care Team Providers Care Retail Area Manager Name Role Phone Raven Agrawal MD Primary Care Provider [phone] Reason for Visit * Reason Onset Date Comments Test Results Imaging Study 08/05/2023 Encounter Details Date Type Department Care Team (Late st Contact Info) Description 08/05/2023 Telephone Hematology/Oncology [facility] [address] [place] [address] Fatimah Quintero CRNP 400 [place] [address] Test Results Imaging Study Allergies No known active allergiesdocumented as of this encounter (statuses as of 08/05/2023) Medications Medication Sig Dispensed Refills Start Date [...] 07/22/2023 Rosuvastatin Calcium 10 MG Oral Tablet (Crestor)Indicatio ns:Type 2 diabetes mellitus with diabetic neuropathy, without long-term current use of insulin ([facility]),Mixed dyslipidemia TAKE 1 TABLET BY MOUTH EVERY DAY 90 Tablet 2 12/23/2022 Active Gabapentin 600 MG Oral Tablet (Neurontin)Indicat ions:Type 2 diabetes mellitus with diabetic neuropathy, without long-term current use of insulin ([facility]) TAKE 1 TABLET IN MORNING, [...] neuropathy, without long-term current use of insulin ([facility]),Cervical spinal stenosis,Cervical spondylosis TAKE 1 CAPSULE BY MOUTH EVERY MORNING 90 Capsule 1 05/03/2023 Active Nicotine 21 MG/24HR Transdermal Patch 24 Hour (Nicoderm CQ) Place 1 Patch topically on the skin daily. 05/16/2023 Active OneTouch Verio In Vitro Strip (Glucose Blood)Indications: Type 2 diabetes mellitus with diabetic neuropathy, without long-term current use of insulin ([facility]) Use upto twice daily E11.9 100 Strip 11 05/19/2023 Active Additional Information Patient not taking.Reported on 07/21/2023 OneTouch Verio w/Device KitIndications:Typ e 2 diabetes mellitus with diabetic neuropathy, without long-term current use of insulin ([facility]) Use upto twice daily E11.9 1 Kit 05/19/2023 Active Additional Information Patient not taking.Reported on 07/21/2023 OneTouch UltraSoft LancetsIndications :Type 2 diabetes mellitus with diabetic neuropathy, without long-term current use of insulin ([facility]) Use upto twice daily E11.9 100 Each 1 05/19/2023 Active Additional Information Patient not taking.Reported on 07/21/2023 Lisinopril 10 MG Oral Tablet (Prinivil)Indicati ons:LVH (left ventricular hypertrophy) due to hypertensive disease, without heart failure,Type 2 diabetes mellitus with hemoglobin A1c goal of less than 7.0% ([facility]),HTN, goal below 130/80 Take 2 Tablets by mouth every evening. 05/19/2023 Active Metoprolol Succinate ER 100 MG Oral Tablet Extended Release 24 Hour (toPROL XL)Indications:LVH (left ventricular hypertrophy) due to hypertensive disease, without heart failure,HTN, goal below 130/80 Take 0.5 Tablets by mouth in the morning. --takes at night. 05/19/2023 Active Acetaminophen 500 MG Oral Tablet [...] hemoglobin A1c goal of less than 7.0% ([facility]),Type 2 diabetes mellitus with diabetic neuropathy, without long-term current use of insulin ([facility]) Take 1 Tablet by mouth daily. 90 Tablet 3 06/13/2023 Active Fluticasone-Umecli din-Vilant 100-62.5-25 MCG/ACT Aerosol Powder Breath Activated (Trelegy Ellipta)Indication s:COPD, moderate ([facility]) Inhale 1 Puff by mouth in the morning. Start 11/27/2022 and stop symbicort (cancel Rx anoro ellipta). [address] 3 07/21/2023 Active Hospital, Clinic, or Other Facility Administered Medication Ordered Dose Route Frequency Start Date End Date Status Albuterol Sulfate (Proventil) (2.5 MG/3ML) 0.083% inhalation solution 2.5 mgIndications:COPD, moderate (HCC) 2.5 mg NEBULIZER PRN 12/29/2022 12/29/2023 Active documented as of this encounter (statuses as of 08/05/2023) Active Problems Problem Noted Date Diagnosed Date [...] use disorder 06/09/2018 Elevated hemoglobin 04/04/2018 Overview: 04/1918-ImFmcw-adi EPO, ferritin,Tsat, neg JAK2 mutn LVH (left ventricular hypert rophy) due to hypertensive disease, without heart failure 12/27/2017 Overview: 06/1715-ncmw-ep16%, no WMabn,mild A Scl,gr 2 DD HTN, [...] as of this encounter (statuses as of 08/05/2023) Resolved Problems Problem Noted Date Diagnosed Date [...] Project. Pt is a participant in the [facility] (Consortium of Rheumatology Researchers of [place]) national data collection study. For further information please call Dr Alban Del Real or Tata Meeks, RN, CCRC at [phone] [facility] RESEARCH OTHER*[id number] 04/12/2003 08/26/2009 Overview: Renamed Per Clinical Trials Billing Project. Pt is a participant in the [facility] (Consortium of [facility]umatology Researchers [facility] [place]) national data collection study. For further information please call Dr Alban Del Real or Tata Meeks, RN, CCRC at [phone] ABN CERVIX NEC-ANTEPART 11/24/200205/31 Elderly multigravida with an tepartum condition or complication 10/10/2002 06/22/2017 Arthritis, rheumatoid 2017 DIABETES-ANTEPARTUM 06/23/19 18 documented as of this encounter (statuses as of 08/05/2023) Immunizations Name Administration Dates Next Due COVID-19 [...] (Menactra) 03/13/2018 Pneumococcal Conjugate Vacci ne, 20-valent ([id number]) 04/06/2022 SARS-COV-2 (COVID-19) Vaccine Unspecified 2021 Seasonal [...] Miscellaneous Notes * Telephone Encounter - Fatimah Quintero CRNP - 08/05/2023 6:[address] neck with contrast completed 08/03/23: IMPRESSION 1. Slightly enlarged but morphologically normal right submandibular lymph node measuring up to 1.8 cm, which possibly corresponds to the palpable nodule. No additional abnormalities identified in theright submandibular region. Per patient report lymph has started to decrease in size. No further concerns at this time. Will send ChangeTip message in no longer than 4 weeks with an update. Further evaluation on as needed basis. All questions answered to patient's satisfaction. documented in this encounter Plan of Treatment Upcoming Encounters Date Type Department Care Team (Late st Contact Info) Description 08/24/2023 9:30 AM EDT Imaging Radiology [address] [place] [address] 09/21/2023 3:40 PM EDT Office Visit Sleep Disorders Ctr [facility] [address] [place] [address] Patricia Guevara DO [address] [place] [address] 10/19/2023 1:30 PM EDT Office Visit Cardiology, [facility] [address] [place] [address] Kaushal Solis PA-C [address] [place] [address] 12/24/2023 1:00 PM EDT Imaging Radiology [address] [place] [address] 01/10/2024 10:00 AM EST Laboratory Laboratory, [facility] [phone] [place] 132 [facility] [place] [address] 01/14/2024 4:00 PM EST Office Visit Hematology/Oncology [facility] 200 [facility] [place] [phone] Fatimah Quintero CRNP [address] [facility] [place] [address] 01/17/2024 3:00 PM EST Office Visit General Internal Medicine [facility] 200 [facility] [place] [address] Raven Agrawal MD 200 [facility] [place] [address] Scheduled Procedures Name Priority Associated Diagnoses Date/Ti [...] Cancer Screening 09/25/2023 Pap Smear 09/25/2023 09/24/2020, 04/05/2017, 03/30/2014, Additional history exists Influenza Vaccine (FLU [...] filedocumented as of this encounter Care Teams Retail Area Manager Relationship Specialty Start Date End Date Raven Agrawal MD [address] [place] [address] PCP - General Internal Medicine 12/27/17 documented as of this encounter
--- OUTSIDE RECORDS SUMMARY | 2023-09-17 22:32 | External Medical Summary | Summary of Care ---
Author Name Unknown Organization [facility] Address [address] [place] [address] Phone [phone] Care Team Providers Care Microfabrication Engineer Manager Name Role Phone Raven Agrawal MD Primary Care Provider [phone] Reason for Visit * Reason Onset Date Comments Medication Refill 08/06/2023 Encounter Details Date Type Department Care Team (Late st Contact Info) Description 08/06/2023 Refill General Internal Medicine [facility] 200 [facility] [place] [address] Raven Agrawal MD 200 [facility] [place] [address] Type 2 diabetes mellitus with diabetic neuropathy, without long-term current use of insulin ([facility]); Mixed dyslipidemia Allergies No known active allergiesdocumented as of this encounter (statuses as of 08/08/2023) Medications Medication Sig Dispensed Refills Start Date [...] Tab 07/04/2019 Active zolpidem (AMBIEN) 10 MG TabletIndications :Persistent insomnia Take 1 Tablet by mouth at bedtime. DrMurphy 7 Tab 07/04/2019 Active Melatonin ER 1 MG TBCRIndications:P ersistent insomnia at bedtime 10/02/2019 Active Additional Information [...] on 07/22/2023 Gabapentin 600 MG Oral Tablet (Neurontin)Indica tions:Type 2 diabetes mellitus with diabetic neuropathy, without long-term current use of insulin ([facility]) TAKE 1 TABLET IN MORNING, 1.5 TABLET AT NOON AND 1.5 TABLET BEFORE BEDTIME 360 Tablet 1 04/14/2023 Active Ketoconazole 2 % External CreamIndications: Seborrheic [...] current use of insulin ([facility]),Cervical spinal stenosis,Cervical spondylosis TAKE 1 [...] A1c goal of less than 7.0% ([facility]),HTN, goal below 130/80 Take 2 Tablets by mouth every evening. 05/19/2023 Active Metoprolol Succinate ER 100 MG Oral Tablet Extended Release 24 Hour (toPROL XL)Indications:LV H (left ventricular hypertrophy) due to hypertensive disease, without heart failure,HTN, goal below 130/80 Take 0.5 Tablets by mouth in the morning. --takes at night. 05/19/2023 Active Acetaminophen 500 MG Oral Tablet (Tylenol)Indicati [...] A1c goal of less than 7.0% ([facility]),Type 2 diabetes mellitus with diabetic neuropathy, without long-term current use of insulin ([facility]) Take 1 Tablet by mouth daily. 90 Tablet 3 06/13/2023 Active Fluticasone-Umecl idin-Vilant 100-62.5-25 MCG/ACT Aerosol Powder Breath Activated (Trelegy Ellipta)Indicatio ns:COPD, moderate ([facility]) Inhale 1 Puff by mouth [...] the morning. 90 Tablet 3 08/08/2023 Active Rosuvastatin Calcium 10 MG Oral Tablet (Crestor)Indicati ons:Type 2 diabetes mellitus with diabetic neuropathy, without long-term current use of insulin ([facility]),Mixed dyslipidemia TAKE 1 TABLET BY MOUTH EVERY DAY 90 Tablet 2 12/23/2022 4 Discontinue d(Refill) Hospital, Clinic, or Other Facility Administered Medication Ordered Dose Route Frequency Start Date End Date Status Albuterol Sulfate (Proventil) (2.5 MG/3ML) 0.083% inhalation solution 2.5 mgIndications:COPD, moderate (HCC) 2.5 mg NEBULIZER PRN 12/29/2022 12/29/2023 Active documented as of this encounter (statuses as of 08/08/2023) Active Problems Problem Noted Date Diagnosed Date [...] use disorder 06/09/2018 Elevated hemoglobin 04/04/2018 Overview: 04/1990-IhMllt-kdm EPO, ferritin,Tsat, neg JAK2 mutn LVH (left ventricular hypert rophy) due to hypertensive disease, without heart failure 12/27/2017 Overview: 06/1702-svje-db37%, no WMabn,mild A Scl,gr 2 DD HTN, [...] as of this encounter (statuses as of 08/08/2023) Resolved Problems Problem Noted Date Diagnosed Date [...] Real or Tata Meeks, RN, CCRC at [phone] [facility] RESEARCH OTHER*[id number] 04/12/2003 08/26/2009 Overview: Renamed Per Clinical Trials Billing Project. Pt is a participant in the [facility] (Consortium of Rheumatology Researchers of [place]) national data collection study. For further information please call Dr Alban Del Real or Tata Meesk, RN, CCRC at [phone] ABN CERVIX NEC-ANTEPART 11/24/200205/31 Elderly multigravida with an tepartum condition or complication 10/10/2002 06/22/2017 Arthritis, rheumatoid 2017 DIABETES-ANTEPARTUM 06/23/19 18 documented as of this encounter (statuses as of 08/08/2023) Immunizations Name Administration Dates Next Due COVID-19 [...] (Menactra) 03/13/2018 Pneumococcal Conjugate Vacci ne, 20-valent ([id number]) 04/06/2022 SARS-COV-2 (COVID-19) Vaccine Unspecified 2021 Seasonal [...] encounter Miscellaneous Notes * Telephone Encounter - Rodri Hernandez RPh - 08/08/2023 2:14 PM EDTSigned Prescriptions: Disp Refills Rosuvastatin Calcium 10 MG Oral Tablet (Cr*90 Tab*3 Sig: Take 1Tablet by mouth in the morning.Authorizing Provider: Francis AGRAWAL User: RODRI HERNANDEZ- documented in this encounter Plan of Treatment Upcoming Encounters Date Type Department Care Team (Late st Contact Info) Description 08/24/2023 9:30 AM EDT Imaging Radiology [facility] 1st Floor, [place] [address] [place] [address] 09/21/2023 3:40 PM EDT Office Visit Sleep Disorders Ctr [facility] [address] [place] [phone] Patricia Guevara DO [address] [place] [address] 10/19/2023 1:30 PM EDT Office Visit Cardiology, [facility] [address] [place] [address] Kaushal Solis PABreannaC 132 [facility] [place] [address] 12/24/2023 1:00 PM EDT Imaging Radiology [facility] 1st [facility] 132 [facility] [place] [address] 01/10/2024 10:00 AM EST Laboratory Laboratory, [address] [phone] [address] [address] 01/14/2024 4:00 PM EST Office Visit Hematology/Oncology [facility] 200 [facility] [place] [phone] Fatimah Quintero CRNP [address] [place] [address] 01/17/2024 3:00 PM EST Office Visit General Internal Medicine [facility] 200 [facility] [place] [address] Raven Agrawal MD 200 [facility] [place] [address] Scheduled Procedures Name Priority Associated Diagnoses Date/Ti [...] hyperlipidemia documented in this encounter Care Teams Microfabrication Engineer Manager Relationship Specialty Start Date End Date Raven Agrawal MD [address] [place] [address] PCP - General Internal Medicine 12/27/17 documented as of this encounter
--- OUTSIDE RECORDS SUMMARY | 2023-09-17 22:32 | External Medical Summary | Summary of Care ---
Author Name Unknown Organization [facility] Address [address] [place] [address] Phone [phone] Care Team Providers Care Geophysical Laboratory Director Name Role Phone Raven Agrawal MD Primary Care Provider Reason for Visit * Reason Onset Date Comments Nurse Documentation 07/28/2023 CMRI/Triaged Encounter Details Date Type Department Care Team (Late st Contact Info) Description 07/28/2023 Telephone Cardiac Studies [facility] [address] [place] [address] Maddie Burch, RN Nurse Documentation (CMRI/Triaged) Allergies No known active allergiesdocumented as of [...] ([facility]),Mixed dyslipidemia TAKE 1 TABLET BY MOUTH EVERY [...] [place]) Use upto twice daily E11.9 100 Strip 11 05/19/2023 Active Additional Information Patient not taking.Reported on 07/21/2023 OneTouch Verio w/Device KitIndications:Typ e 2 diabetes mellitus with diabetic neuropathy, without long-term current use of insulin ([facility]) Use upto twice daily E11.9 1 Kit [...] than 7.0% ([facility]),HTN, goal below 130/80 Take 2 Tablets by [...] than 7.0% ([facility]),Type 2 diabetes mellitus with diabetic neuropathy, without long-term current use of insulin ([facility]) Take 1 Tablet by mouth daily. 90 Tablet 3 06/13/2023 Active Fluticasone-Umecli din-Vilant 100-62.5-25 MCG/ACT Aerosol Powder Breath Activated (Trelegy Ellipta)Indication s:COPD, moderate ([facility]) Inhale 1 Puff by mouth in the [...] use disorder 06/09/2018 Elevated hemoglobin 04/04/2018 Overview: 04/1964-NdUgmc-oda EPO, ferritin,Tsat, neg JAK2 mutn LVH (left ventricular hypert rophy) due to hypertensive disease, without heart failure 12/27/2017 Overview: 06/1766-dmwx-ot14%, no WMabn,mild A Scl,gr 2 DD HTN, [...] Project. Pt is a participant in the [facility] (Consortium of Rheumatology Researchers of [place]) national data collection study. For further information please call Dr Alban Del Real or Ttaa Meeks, RN, CCRC at [phone] [facility] RESEARCH OTHER*[id number] 04/12/2003 08/26/2009 Overview: Renamed Per Clinical Trials Billing Project. Pt is a participant in the [facility] (Consortium of Rheumatology Researchers of [place]) national data collection study. For further information please call Dr Alban Del Real or Tata Meeks, RN, CCRC at [phone] ABN CERVIX NEC-ANTEPART 11/24/200205/31 Elderly multigravida with [...] (Menactra) 03/13/2018 Pneumococcal Conjugate Vacci ne, 20-valent ([id number]) 04/06/2022 SARS-COV-2 (COVID-19) Vaccine Unspecified 2021 Seasonal [...] encounter Miscellaneous Notes * Telephone Encounter - Maddie Burch RN - 07/28/2023 4:24 PM EDT This patient has been triaged and cleared by the cardiac nurse to be scheduled for the CMRI. A message has been sent to the schedulers to please call the patient and they will need labs drawn within 30 days prior to the date of the CMRI. Maddie Burch procurement engineer Imaging Nurse [phone] documented in this encounter Plan of Treatment Upcoming Encounters Date Type Department Care Team (Late st Contact Info) Description 09/21/2023 3:40 PM EDT [facility] [address] [place] [address] [phone] Patricia Guevara DO [address] [place] [address] 10/19/2023 1:30 PM EDT Office Visit Cardiology, [facility] [address] [place] [address] [address] Kaushal Solis PA-C [address] [place] [address] 12/24/2023 1:00 PM EDT Imaging [facility] [address] [place] [address] [address] 01/10/2024 10:00 AM EST Laboratory Laboratory, [facility] [address] [place] [address] [phone] Cam [place] [address] [place] [address] 01/14/2024 4:00 PM EST Office [facility] [place] [address] [place] [phone] Fatimah Quintero CRNP [address] [place] [address] 01/17/2024 3:00 PM EST Office Visit General Internal Medicine [facility] Ne[place]am [place] 200 [facility] [place] [address] Raven Agrawal MD 200 [facility] [place] [address] Scheduled Procedures Name Priority Associated Diagnoses Date/Ti [...] 07/19/2024 07/20/2023, 08/2022, 03/27/2021, Additional history exists GFR 07/19/2024 [...] filedocumented as of this encounter Care Teams Geophysical Laboratory Director Relationship Specialty Start Date End Date Raven Agrawal MD [address] [place] [address] PCP - General Internal Medicine 12/27/17 documented as of this encounter
--- OUTSIDE RECORDS SUMMARY | 2023-09-17 22:32 | External Medical Summary | Summary of Care ---
Author Name Unknown Organization [facility] Address [address] [place] [address] Phone [phone] Care Team Providers Care Fisher Trammel Net Name Role Phone Raven Agrawal MD Primary Care Provider [phone] Reason for Visit * Reason Onset Date Comments Nurse Documentation 07/27/2023 cmri Encounter Details Date Type Department Care Team (Late st Contact Info) Description 07/27/2023 Telephone Cardiac Studies [address] [phone] Mariana Hutton, RN Nurse Documentation (cmri) Allergies No known active allergiesdocumented as of this encounter (statuses as of 07/27/2023) Medications Medication Sig Dispensed Refills Start Date [...] long-term current use of insulin ([facility]),Mixed dyslipidemia TAKE 1 TABLET BY MOUTH EVERY DAY 90 Tablet 2 12/23/2022 Active Gabapentin 600 MG Oral Tablet (Neurontin)Indicat ions:Type 2 diabetes mellitus with diabetic neuropathy, without long-term current use of insulin ([facility]) TAKE 1 TABLET IN MORNING, 1.5 [...] with single episode, in remission ([facility]),Type 2 diabetes mellitus with diabetic neuropathy, without long-term current use of insulin ([facility]),Cervical spinal stenosis,Cervical spondylosis TAKE 1 CAPSULE BY MOUTH EVERY MORNING 90 Capsule 1 05/03/2023 Active Nicotine 21 MG/24HR Transdermal Patch 24 Hour (Nicoderm CQ) Place 1 Patch topically on the skin daily. 05/16/2023 Active OneTouch Verio In Vitro Strip (Glucose Blood)Indications: Type 2 diabetes mellitus with diabetic neuropathy, without long-term current use of insulin ([facility]) Use upto twice daily E11.9 100 Strip 11 05/19/2023 Active Additional Information Patient not taking.Reported on 07/21/2023 OneTouch Verio w/Device KitIndications:Typ e 2 diabetes mellitus with diabetic neuropathy, without long-term current use of insulin ([facility]) Use upto twice daily E11.9 1 Kit 05/19/2023 Active Additional Information Patient not taking.Reported on 07/21/2023 OneTouch UltraSoft LancetsIndications :Type 2 diabetes mellitus with diabetic neuropathy, without long-term current use of insulin ([facility]) Use upto twice daily E11.9 100 Each 1 05/19/2023 Active Additional Information Patient not taking.Reported on 07/21/2023 Lisinopril 10 MG Oral Tablet (Prinivil)Indicati ons:LVH (left ventricular hypertrophy) due to hypertensive disease, without heart failure,Type 2 diabetes mellitus with hemoglobin A1c goal of less than 7.0% ([facility]),HTN, goal below 130/80 Take 2 Tablets by [...] goal of less than 7.0% ([facility]),Type 2 diabetes mellitus with diabetic neuropathy, without long-term current use of insulin ([facility]) Take 1 Tablet by mouth daily. 90 Tablet 3 06/13/2023 Active Fluticasone-Umecli din-Vilant 100-62.5-25 MCG/ACT Aerosol Powder Breath Activated (Trelegy Ellipta)Indication s:COPD, moderate ([facility]) Inhale 1 Puff by mouth in the [...] as of this encounter (statuses as of 07/27/2023) Active Problems Problem Noted Date Diagnosed Date [...] use disorder 06/09/2018 Elevated hemoglobin 04/04/2018 Overview: 04/1945-FvEcux-smr EPO, ferritin,Tsat, neg JAK2 mutn LVH (left ventricular hypert rophy) due to hypertensive disease, without heart failure 12/27/2017 Overview: 06/1701-dqfu-mp89%, no WMabn,mild A Scl,gr 2 DD HTN, [...] as of this encounter (statuses as of 07/27/2023) Resolved Problems Problem Noted Date Diagnosed Date [...] Pt is a participant in the [facility] (Consortium of Rheumatology Researchers of [place]) national data collection study. For further information please call Dr Alban Del Real or Tata Meeks, RN, CCRC at [phone] [facility] RESEARCH OTHER*[id number] 04/12/2003 08/26/2009 Overview: Renamed Per Clinical Trials Billing Project. Pt is a participant in the [facility] (Consortium of Rheumatology Researchers of [place]) national data collection study. For further information please call Dr Alban Del Real or Tata Meeks, RN, CCRC at [phone] ABN CERVIX NEC-ANTEPART 11/24/200205/31 Elderly multigravida with an tepartum condition or complication 10/10/2002 06/22/2017 Arthritis, rheumatoid 2017 DIABETES-ANTEPARTUM 06/23/19 18 documented as of this encounter (statuses as of 07/27/2023) Immunizations Name Administration Dates Next Due COVID-19 [...] (Menactra) 03/13/2018 Pneumococcal Conjugate Vacci ne, 20-valent ([id number]) 04/06/2022 SARS-COV-2 (COVID-19) Vaccine Unspecified 2021 Seasonal [...] encounter Miscellaneous Notes * Telephone Encounter - Mariana Hutton RN - 07/27/2023 2:56 PM EDT This patient has been triaged and cleared by the cardiac nurse to be scheduled for the CMRI. A message has been sent to the schedulers to please call the patient and will need labs within 30 days prior to CMRI. documented in this encounter Plan of Treatment Upcoming Encounters Date Type Department Care Team (Late st Contact Info) Description 09/21/2023 3:40 PM EDT Office Visit Sleep Disorders Ctr [facility] [address] [place] [phone] Patricia Guevara DO [address] [place] [address] 10/19/2023 1:30 PM EDT Office Visit Cardiology, Health system [address] [place] [address] Kaushal Solis PA-C [address] [place] [address] 12/24/2023 1:00 PM EDT Imaging Radiology [facility] 1st Floor, [place] [address] [place] [address] 01/10/2024 10:00 AM EST Laboratory Laboratory, Health system [address] [place] [phone] [facility] [address] [place] [address] 01/14/2024 4:00 PM EST Office Visit Hematology/Oncology [facility] [address] [place] [phone] Fatimah Quintero CRNP [address] [place], [place] [address] [address] 01/17/2024 3:00 PM EST Office Visit General Internal Medicine [facility] [place] [address] [facility] [place] [address] Raven Agrawal MD [address] [place] [address] Scheduled Procedures Name Priority Associated Diagnoses Date/Ti [...] filedocumented as of this encounter Care Teams Fisher Trammel Net Relationship Specialty Start Date End Date Raven Agrawal MD [address] [place] [address] PCP - General Internal Medicine 12/27/17 documented as of this encounter
--- OUTSIDE RECORDS SUMMARY | 2023-09-17 22:32 | External Medical Summary ---
Author Name Unknown Address Unknown Organization [id number]:LABORATORY [facility] 57[address] - [address] [place] [address] Laboratory Report Ordering Provider Test Date Status DIOR CABRERA 08/23/2023 15:00:00 Final Observation Date Value Abnormality Reference (Units ) Status BUN 08/23/2023 15:00:00 8 6-20 (mg/dL) Final Creatinine 08/23/2023 15:00:00 0.7 0.5-1.0 (mg/dL) Final Glomerular filtration rate/1.73 sq M.predicted [Volume Rate/Area] in Serum, Plasma or Blood by Creatinine-based formula (CKD-EPI) 08/23/2023 15:00:00 >90 >=60 (mL/min) Final eGFR is calculated based on the CKD-EPI 2020 equation Sodium 08/23/2023 15:00:00 141 135-146 (m mol/L) Final Potassium 08/23/2023 15:00:00 4.1 3.5-5.1 (m mol/L) Final Cl 08/23/2023 15:00:00 106 98-107 (mm ol/L) Final CO2 08/23/2023 15:00:00 28 22-32 (mmo l/L) Final Anion gap 08/23/2023 15:00:00 7 7-15 (mmol /L) Final Glucose 08/23/2023 15:00:00 236 Above high normal 70 -120 (mg/dL) Final Calcium 08/23/2023 15:00:00 8.9 8.4-10.2 ( mg/dL) Final Performing Location [facility] 57-[address] 0 - [address] [place] [address]
--- OUTSIDE RECORDS SUMMARY | 2023-09-17 22:32 | External Medical Summary | Summary of Care ---
Author Name Unknown Organization [facility] Address [address] [facility] [place] [address] Phone [phone] Care Team Providers Care Computer Installer Name Role Phone Raven Agrawal MD Primary Care Provider [phone] Reason for Visit * Reason Onset Date Comments Test Results 07/23/2023 Encounter Details Date Type Department Care Team (Late st Contact Info) Description 07/23/2023 Telephone Cardiology, [facility] [address] [facility] [place] [address] Kaushal Solis PA-C [address] [place] [address] Test Results Allergies No known active allergiesdocumented [...] long-term current use of insulin ([facility]),Mixed dyslipidemia TAKE 1 TABLET BY MOUTH EVERY DAY 90 Tablet 2 12/23/2022 Active Gabapentin 600 MG Oral Tablet (Neurontin)Indicat ions:Type 2 diabetes mellitus with diabetic neuropathy, without long-term current use of insulin ([facility]) TAKE 1 TABLET IN MORNING, 1.5 [...] long-term current use of insulin ([facility]),Cervical spinal stenosis,Cervical spondylosis TAKE 1 CAPSULE BY MOUTH EVERY MORNING 90 Capsule 1 05/03/2023 Active Nicotine 21 MG/24HR Transdermal Patch 24 Hour (Nicoderm CQ) Place 1 Patch topically on the skin daily. 05/16/2023 Active Lamiecco In Vitro Strip (Glucose Blood)Indications: Type 2 diabetes mellitus with diabetic neuropathy, without long-term current use of insulin ([facility]) Use upto twice daily E11.9 100 Strip 11 05/19/2023 Active Additional Information Patient not taking.Reported on 07/21/2023 SkyFuelTouch Verio w/Device KitIndications:Typ e 2 diabetes mellitus with diabetic neuropathy, without long-term current use of insulin ([facility]) Use upto twice daily E11.9 1 Kit 05/19/2023 Active Additional Information Patient not taking.Reported on 07/21/2023 OneTouch UltraSoft LancetsIndications :Type 2 diabetes mellitus with diabetic neuropathy, without long-term current use of insulin ([facility]) Use upto twice daily E11.9 100 Each 1 05/19/2023 Active Additional Information Patient not taking.Reported on 07/21/2023 Lisinopril 10 MG Oral Tablet (Prinivil)Indicati ons:LVH (left ventricular hypertrophy) due to hypertensive disease, without heart failure,Type 2 diabetes mellitus with hemoglobin A1c goal of less than 7.0% ([facility]),HTN, goal below 130/80 Take 2 Tablets by [...] goal of less than 7.0% ([facility]),Type 2 diabetes mellitus with diabetic neuropathy, without long-term current use of insulin ([facility]) Take 1 Tablet by mouth daily. 90 Tablet 3 06/13/2023 Active Fluticasone-Umecli din-Vilant 100-62.5-25 MCG/ACT Aerosol Powder Breath Activated (Trelegy Ellipta)Indication s:COPD, moderate ([facility]) Inhale 1 Puff by mouth in the [...] use disorder 06/09/2018 Elevated hemoglobin 04/04/2018 Overview: 04/1966-OwUjpo-otv EPO, ferritin,Tsat, neg JAK2 mutn LVH (left ventricular hypert rophy) due to hypertensive disease, without heart failure 12/27/2017 Overview: 06/1788-jxmq-hp62%, no WMabn,mild A Scl,gr 2 DD HTN, [...] Project. Pt is a participant in the [facility] (Consortium of Rheumatology Researchers of [place]) national data collection study. For further information please call Dr Alban Del Real or Tata Meeks, RN, CCRC at [phone] [facility] RESEARCH OTHER*[id number] 04/12/2003 08/26/2009 Overview: Renamed Per Clinical Trials Billing Project. Pt is a participant in the [facility] (Consortium of Rheumatology Researchers of [place]) national data collection study. For further information please call Dr Alban Del Real or Tata Meeks, RN, CCRC at [phone] ABN CERVIX NEC-ANTEPART 11/24/200205/31 Elderly multigravida with [...] (Menactra) 03/13/2018 Pneumococcal Conjugate Vacci ne, 20-valent (Awacclh10) 04/06/2022 SARS-COV-2 (COVID-19) Vaccine Unspecified 2021 Seasonal [...] Telephone Encounter - Gordo Dan LPN - 07/23/2023 11:46 AM EDT Sent patient a MyChart message to make aware. ----- Message from Kaushal Solis sent at 07/23/2023 7:02 AM EDT ----- Thyroid blood test is okay. * Telephone Encounter - Gordo Dan LPN - 07/23/2023 11:46 AM EDT ----- Message from Kaushal Solis sent at 07/22/2023 5:14 PM EDT ----- Magnesium level was okay documented in this encounter Plan of Treatment Upcoming Encounters Date Type Department Care Team (Late st Contact Info) Description 09/21/2023 3:40 PM EDT Office Visit Sleep Disorders Ctr [facility] [address] [place] [address] [phone] Patricia Guevara DO [address] [place] [address] 10/19/2023 1:30 PM EDT Office Visit Cardiology, [facility] [address] [address] Kaushal Solis PA-C [address] [place] [address] 12/24/2023 1:00 PM EDT Imaging Radiology [address] [place] [address] 01/10/2024 10:00 AM EST Laboratory Laboratory, [facility] 132 [facility] [place] [phone] Cam [place] 132 [facility] [place] [address] 01/14/2024 4:00 PM EST Office Visit Hematology/Oncology [facility] [address] [facility] [place] [phone] Fatimah Quintero CRNP [address] [facility] [place] [address] 01/17/2024 3:00 PM EST Office Visit General Internal Medicine [facility] [address] [facility] [place] [address] Raven Agrawal MD [address] [place] [address] Scheduled Procedures Name Priority Associated Diagnoses Date/Ti [...] as of this encounter Care Teams Computer Installer Relationship Specialty Start Date End Date Raven Agrawal MD [address] [place] [address], [place] [address] PCP - General Internal Medicine 12/27/17 documented as of this encounter
--- OUTSIDE RECORDS SUMMARY | 2023-09-17 22:32 | External Medical Summary ---
Author Name Unknown Address Unknown Organization K01:LABORATORY [facility] - [address] [place] [address] Laboratory Report Ordering Provider Test Date Status DIOR CABRERA 08/23/2023 15:03:07 Final Observation Date Value Abnormality Reference (Units) Status PARAPROTEIN NORMAL/ABNORMAL 08/23/2023 15:03:07 Normal Normal Final Protein, Urine 08/23/2023 15:03:07 6 (mg/dL) Final Immunofixation for Urine Narrative 08/23/2023 15:03:07 No monoclonal free light chains present (Bence Meade protein). Final Performing Location LABORATORY [facility] - [address] [place] [address]
--- OUTSIDE RECORDS SUMMARY | 2023-09-17 22:32 | External Medical Summary | Summary of Care ---
Author Name Unknown Organization [facility] Address [address] [facility] [place] [address] Phone [phone] Care Team Providers Care Director Home Name Role Phone Raven Agrawal MD Primary Care Provider [phone] Reason for Referral * Precert (Within 24 hrs (call dept; emergent)) - Pending Review Specialty Diagnoses / Procedures Referred By Adam washington Referred To Contact Radiology Diagnoses Mass of submandibular region Procedures CT NECK W CONTRAST Fatimah Quintero CRNP [address] [place] [id number] Referral ID Status Reason Start Date Expiration Date V isits Requested Visits Authorized [id number] Pending Review 07/22/2023 999 999 Reason for Visit * Reason Onset Date Comments Test Results 07/21/2023 US HEAD AND NECK Encounter Details Date Type Department Care Team (Late st Contact Info) Description 07/21/2023 Telephone Hematology/Oncology [facility] [place] [place] 200 [facility] [place] [phone] Fatimah Quintero CRNP [address] [place] [id number] Test Results (US HEAD [...] without long-term current use of insulin ([facility]),Mixed dyslipidemia TAKE 1 TABLET BY MOUTH EVERY DAY 90 Tablet 2 3 Active Gabapentin 600 MG Oral Tablet (Neurontin)Indica tions:Type 2 diabetes mellitus with diabetic neuropathy, without long-term current use of insulin ([facility]) TAKE 1 TABLET IN MORNING, [...] depressive disorder with single episode, in remission ([facility]),Type 2 diabetes mellitus with diabetic neuropathy, without long-term current use of insulin ([facility]),Cervical spinal stenosis,Cervical spondylosis TAKE 1 [...] hemoglobin A1c goal of less than 7.0% ([facility]),HTN, goal below 130/80 Take 2 Tablets [...] use disorder 06/09/2018 Elevated hemoglobin 04/04/2018 Overview: 04/1937-RoDrwl-bog EPO, ferritin,Tsat, neg JAK2 mutn LVH (left ventricular hypert rophy) due to hypertensive disease, without heart failure 12/27/2017 Overview: 06/1781-tdub-ju49%, no WMabn,mild A Scl,gr 2 DD HTN, [...] Real or Tata Meeks, RN, CCRC at [phone] [facility] RESEARCH OTHER*[id number] 04/12/2003 08/26/2009 Overview: Renamed Per Clinical Trials Billing Project. Pt is a participant in the [facility] ([facility] of Rheumatology Researchers of [facility]) national data collection study. For further information please call Dr Alban Del Real or Tata Meeks, RN, CCRC at [phone] ABN CERVIX NEC-ANTEPART 11/24/200205/31 Elderly multigravida with [...] (Menactra) 03/13/2018 Pneumococcal Conjugate Vacci ne, 20-valent ([id number]) 04/06/2022 Pneumococcal Polysaccharide PPV23 (Pneumovax) 03/16/2005 SARS-COV-2 [...] unexpected or indeterminate finding on Aura Hardy ([id number]) andasks that you review the following report. [...] MAHAD Bassett Client Service Rep Diagnostic Medicine [place] documented in this encounter Plan of Treatment Upcoming Encounters Date Type Department Care Team (Late st Contact Info) Description 09/21/2023 3:40 PM EDT Office Visit Sleep Disorders Ctr [facility] [address] [place] [address] [phone] Patricia Guevara DO [address] [place] [address] 10/19/2023 1:30 PM EDT Office [facility] [address] [place] [address] Kaushal Solis PA-C [address] [place] [address] 12/24/2023 1:00 PM EDT Imaging Radiology [facility] 132 [facility] [place] [address] 01/10/2024 10:00 AM EST Laboratory Laboratory, [facility] 132 [facility] [place] [phone] [facility] 132 [facility] [place] [address] 01/14/2024 4:00 PM EST Office Visit Hematology/Oncology [facility] 200 [facility] [place] [phone] Fatimah [facility]intero CRNP [address] [facility] [address] 01/17/2024 3:00 PM EST Office Visit General Internal Medicine [facility] 200 [facility] [place] [address] Raven Agrawal MD 200 [facility] [place] [address] Scheduled Orders Name Type Priority Associated Diagnoses [...] neck documented in this encounter Care Teams Director Home Relationship Specialty Start Date End Date Raven Agrawal MD 200 [facility] [place] [address] PCP - General Internal Medicine 12/27/17 documented as of this encounter
--- OUTSIDE RECORDS SUMMARY | 2023-09-17 22:32 | External Medical Summary | Summary of Care ---
Author Name Unknown Organization [facility] Address [address] [place] [address] Phone [phone] Care Team Providers Care Feed Miller Name Role Phone Raven Agrawal MD Primary Care Provider [phone] Reason for Visit * Reason Comments Outpatient Testing Encounter Details Date Type Department Care Team (Late st Contact Info) Description 08/23/2023 3:00 PM EDT Laboratory Laboratory, [facility] [address] [facility] [address] [facility] [address] [place] [address] Abnormal echocardiogram Allergies No known active allergiesdocumented as of this encounter (statuses as of 08/23/2023) Medications Medication Sig Dispensed Refills Start Date [...] insulin ([facility]) Use upto twice daily E11.9 [...] insulin ([facility]) Take 1 Tablet by mouth daily. 90 Tablet 3 06/13/2023 Active Fluticasone-Umecli din-Vilant 100-62.5-25 MCG/ACT Aerosol Powder Breath Activated (Trelegy Ellipta)Indication s:COPD, moderate ([facility]) Inhale 1 Puff by mouth in the morning. Start 11/27/2022 and stop symbicort (cancel Rx anoro ellipta). 180 Blister Dosing Unit 3 07/21/2023 Active Rosuvastatin Calcium 10 MG Oral Tablet (Crestor)Indicatio ns:Type 2 diabetes mellitus with diabetic neuropathy, without long-term current use of insulin ([facility]),Mixed dyslipidemia Take 1 Tablet by [...] insulin ([facility]) Take 1 Tablet by mouth every evening. 90 Tablet 1 08/17/2023 Active Hospital, Clinic, or Other Facility Administered Medication Ordered Dose Route Frequency Start Date End Date Status Albuterol Sulfate (Proventil) (2.5 MG/3ML) 0.083% inhalation solution 2.5 mgIndications:COPD, moderate (HCC) 2.5 mg NEBULIZER PRN 12/29/2022 12/29/2023 Active documented as of this encounter (statuses as of 08/23/2023) Active Problems Problem Noted Date Diagnosed Date [...] use disorder 06/09/2018 Elevated hemoglobin 04/04/2018 Overview: 04/1973-YrTpuq-znx EPO, ferritin,Tsat, neg JAK2 mutn LVH (left ventricular hypert rophy) due to hypertensive disease, without heart failure 12/27/2017 Overview: 06/1743-otza-pj73%, no WMabn,mild A Scl,gr 2 DD HTN, [...] as of this encounter (statuses as of 08/23/2023) Resolved Problems Problem Noted Date Diagnosed Date [...] Project. Pt is a participant in the [facility] (Consortium of Rheumatology Researchers of [place]) national data collection study. For further information please call Dr Alban Del Real or Tata Meeks, RN, CCRC at [phone] [facility] RESEARCH OTHER*[id number] 04/12/2003 08/26/2009 Overview: Renamed Per Clinical Trials Billing Project. Pt is a participant in the [facility] (Consortium of Rheumatology Researchers of [place]) national data collection study. For further information please call Dr Alban Del Real or Tata Meeks, RN, CCRC at [phone] ABN CERVIX NEC-ANTEPART 11/24/200205/31 Elderly multigravida with an tepartum condition or complication 10/10/2002 06/22/2017 Arthritis, rheumatoid 2017 DIABETES-ANTEPARTUM 06/23/19 18 documented as of this encounter (statuses as of 08/23/2023) Immunizations Name Administration Dates Next Due COVID-19 [...] (Menactra) 03/13/2018 Pneumococcal Conjugate Vacci ne, 20-valent ([id number]) 04/06/2022 SARS-COV-2 (COVID-19) Vaccine Unspecified 2021 Seasonal [...] Description 08/24/2023 9:30 AM EDT Imaging Radiology [address] [place] [address] 09/21/2023 3:40 PM EDT Office Visit Sleep Disorders Ctr [facility] [address] [place] [address] Patricia Guevara DO [address] [place] [address] 10/19/2023 1:30 PM EDT Office Visit Cardiology, [facility] [address] [place] [address] Kaushal Solis PA-C [address] [place] [address] 12/24/2023 1:00 PM EDT Imaging Radiology [address] [place] [address] 01/10/2024 10:00 AM EST Laboratory Laboratory, [facility] [address] [place] [address] [facility] [address] [place] [address] 01/14/2024 4:00 PM EST Office Visit Hematology/Oncology [facility] [address] [facility] [place] [address] Fatimah [facility]intero CRNP [address] [facility] [place] [address] 01/17/2024 3:00 PM EST Office Visit General Internal Medicine [facility] [address] [facility] [place] [address] Raven Agrawal MD [address] [facility] [place] [address] Pending Results Name Type Priority Associated Diagnoses Date /Time BASIC METABOLIC PANEL Lab Routine Abnormal echocardiogram 08/23/2023 3:00 PM EDT KAPPA/LAMBDA LIGHT CHAINS, FREE WITH RATIO, RANDOM URINE Lab Routine Abnormal echocardiogram 08/23/2023 3:03 PM EDT URINE IMMUNOFIXATION, BENCE MEADE PROTEIN, RANDOM URINE Lab Routine Abnormal echocardiogram 08/23/2023 3:03 PM EDT Scheduled Procedures Name Priority Associated [...] of this encounter Visit Diagnoses Diagnosis Abnormal echocardiogram Nonspecific (abnormal) findings on radiological and other examination of other intrathoracic organs documented in this encounter Care Teams Feed Miller Relationship Specialty Start Date End Date Raven Agrawal MD [address] [place] [address], [place] [address] PCP - General Internal Medicine 12/27/17 documented as of this encounter
--- OUTSIDE RECORDS SUMMARY | 2023-09-17 22:32 | External Medical Summary | Summary of Care ---
Author Name Unknown Organization [facility] Address [address] [facility] [place] [address] Phone [phone] Care Team Providers Care Drum Puller Name Role Phone Raven Agrawal MD Primary Care Provider Reason for Referral * Precert (Within 24 hrs (call dept; emergent)) - Pending Review Specialty Diagnoses / Procedures Referred By Adam washington Referred To Contact Radiology Diagnoses Mass of submandibular region Procedures CT NECK W CONTRAST Fatimah Quintero CRNP [address] [place] [id number] Referral ID Status Reason Start Date Expiration Date V isits Requested Visits Authorized [id number] Pending Review 07/22/2023 999 999 Reason for Visit * Reason Onset Date Comments Test Results 07/21/2023 US HEAD AND NECK Encounter Details Date Type Department Care Team (Late st Contact Info) Description 07/21/2023 Telephone Hematology/Oncology [facility] 200 [facility] [place] [address] Fatimah Quintero CRNP [address] [place] [id number] Test Results (US HEAD [...] current use of insulin ([facility]),Mixed dyslipidemia TAKE 1 TABLET BY MOUTH EVERY [...] of less than 7.0% ([facility]),HTN, goal below 130/80 Take 2 Tablets by [...] use disorder 06/09/2018 Elevated hemoglobin 04/04/2018 Overview: 04/1906-FvNnrr-fpn EPO, ferritin,Tsat, neg JAK2 mutn LVH (left ventricular hypert rophy) due to hypertensive disease, without heart failure 12/27/2017 Overview: 06/1746-ekuh-jv94%, no WMabn,mild A Scl,gr 2 DD HTN, [...] Real or Tata Meeks, RN, CCRC at [phone] [facility] RESEARCH OTHER*[id number] 04/12/2003 08/26/2009 Overview: Renamed Per Clinical Trials Billing Project. Pt is a participant in the [facility] ([facility] of Rheumatology Researchers of [facility]) national data collection study. For further information please call Dr Alban Del Real or Tata Meeks, RN, CCRC at [phone] ABN CERVIX NEC-ANTEPART 11/24/200205/31 Elderly multigravida with [...] (Menactra) 03/13/2018 Pneumococcal Conjugate Vacci ne, 20-valent ([id number]) 04/06/2022 Pneumococcal Polysaccharide PPV23 (Pneumovax) 03/16/2005 SARS-COV-2 [...] unexpected or indeterminate finding on Aura Hardy ([id number]) andasks that you review the following report. [...] MAHAD Bassett Client Service Rep Diagnostic Medicine [place] documented in this encounter Plan of Treatment Upcoming Encounters Date Type Department Care Team (Late st Contact Info) Description 09/21/2023 3:40 PM EDT Office Visit Sleep Disorders Ctr [facility] [address] [place] [phone] Patricia Guevara DO 132 [place] [address] 10/19/2023 1:30 PM EDT Office [facility], [facility] 132 [place] [address] Kaushal Solis PA-C [address] [place] [address] 12/24/2023 1:00 PM EDT Imaging Radiology [facility] 132 [facility] [place] [address] 01/10/2024 10:00 AM EST Laboratory Laboratory, [facility] 132 [facility] [place] [address] [facility] 132 [facility] [place] [address] 01/14/2024 4:00 PM EST Office Visit Hematology/Oncology [facility] 200 [facility] [place] [phone] Fatimah Quintero CRNP 400 [facility] [address] 01/17/2024 3:00 PM EST Office Visit General Internal Medicine [facility] 200 [facility] [place] [address] Raven Agrawal MD 200 [facility] [place] [address] Scheduled Orders Name Type Priority Associated Diagnoses [...] neck documented in this encounter Care Teams Drum Puller Relationship Specialty Start Date End Date Raven Agrawal MD 200 [facility] [place] [address] PCP - General Internal Medicine 12/27/17 documented as of this encounter
--- OUTSIDE RECORDS SUMMARY | 2023-09-17 22:32 | External Medical Summary ---
Author Name Unknown Address Unknown Organization : Laboratory Report Ordering Provider Test Date Status DIOR CABRERA 08/23/2023 15:03:07 Final Observation Date Value Abnormality Reference (Units ) Status Jeff light chains, Urine Quant. 08/23/2023 15:03:07 64.59 Above high normal <=32.90 (mg/L) Final Lambda Light Chains, Free, Urine Quant. 08/23/2023 15:03:07 8.09 Above high normal <=3.79 (mg/L) Final Jeff/Lambda Light Chains, Urine 08/23/2023 15:03:07 7.98 <=8.69 Final If free light chain results do not agree with other
clinical or laboratory findings, repeat testing on a
diluted sample to rule out antigen excess may be
requested.

Test Performed at:
[facility]
[address] [facility] [address]
[place] [address]
Ryley Bedoya M.D., Ph.D.,Director of Laboratories Performing Location
--- OUTSIDE RECORDS SUMMARY | 2023-09-17 22:32 | External Medical Summary | Summary of Care ---
Author Name Unknown Organization [facility] Address [address] [place] [place] [address] Phone [phone] Care Team Providers Care Diabetes Territory Manager Name Role Phone Raven Agrawal MD Primary Care Provider [phone] Reason for Visit * Reason Onset Date Comments Home Health 05/18/2023 Encounter Details Date Type Department Care Team (Late st Contact Info) Description 05/18/2023 Telephone General Internal Medicine [facility] 200 [facility] [place] [address] Raven Agrawal MD 200 [facility] [place] [address] Home Health Allergies No known active allergiesdocumented as of this encounter (statuses as of 08/17/2023) Medications Medication Sig Dispensed Refills Start Date End Date Status VITAMIN D 2000 UNIT PO TABS one tablet daily] Active KEVZARA 200 MG/1.14ML SOSY Injection every other week 09/20/2017 Active Multiple Vitamin (MULTI-DAY) Tablet Take 1 Tab by mouth daily. Active aspirin enteric coated 81 MG TBECIndications:Mix ed dyslipidemia,Subcla vian artery stenosis, right (HCC) Take 1 Tab by mouth daily. St 09/16 100 Tab 3 01/03/2019 Active traMADol (ULTRAM) 50 MG Tablet Take 1 Tablet by mouth daily as needed for Pain. 1 Tab 07/04/2019 Active zolpidem (AMBIEN) 10 MG TabletIndications:P ersistent insomnia Take 1 Tablet by mouth at bedtime. DrMurphy 7 Tab 07/04/2019 Active Melatonin ER 1 MG TBCRIndications:Per sistent insomnia at bedtime 10/02/2019 Active Additional Information [...] on 07/22/2023 Gabapentin 600 MG Oral Tablet (Neurontin)Indicati ons:Type 2 diabetes mellitus with diabetic neuropathy, without long-term current use of insulin (HCC) TAKE 1 TABLET IN MORNING, 1.5 TABLET AT NOON AND 1.5 TABLET BEFORE BEDTIME 360 Tablet 1 04/14/2023 Active Ketoconazole 2 % External CreamIndications:Se borrheic dermatitis Apply to affected areas twice daily-nasolabial [...] as of this encounter (statuses as of 08/17/2023) Active Problems Problem Noted Date Diagnosed Date [...] use disorder 06/09/2018 Elevated hemoglobin 04/04/2018 Overview: 04/1958-XnKked-slh EPO, ferritin,Tsat, neg JAK2 mutn LVH (left ventricular hypert rophy) due to hypertensive disease, without heart failure 12/27/2017 Overview: 06/1775-gycx-su42%, no WMabn,mild A Scl,gr 2 DD HTN, [...] as of this encounter (statuses as of 08/17/2023) Resolved Problems Problem Noted Date Diagnosed Date [...] Pt is a participant in the [facility] (Consortium of Rheumatology Researchers of [facility]) national data collection study. For further information please call Dr Alban Del Real or Tata Meeks, RN, CCRC at [phone] [facility] RESEARCH OTHER*[id number] 04/12/2003 08/26/2009 Overview: Renamed Per Clinical Trials Billing Project. Pt is a participant in the [facility] (Consortium of Rheumatology Researchers of [place]) national data collection study. For further information please call Dr Alban Del Real or Tata Meeks, RN, CCRC at [phone] ABN CERVIX NEC-ANTEPART 11/24/200205/31 Elderly multigravida with an tepartum condition or complication 10/10/2002 06/22/2017 Arthritis, rheumatoid 2017 DIABETES-ANTEPARTUM 06/23/19 18 documented as of this encounter (statuses as of 08/17/2023) Immunizations Name Administration Dates Next Due COVID-19 [...] (Menactra) 03/13/2018 Pneumococcal Conjugate Vacci ne, 20-valent ([id number]) 04/06/2022 SARS-COV-2 (COVID-19) Vaccine Unspecified 2021 Seasonal [...] Telephone Encounter - Cheyenne Tang LPN - 05/18/2023 2:44 PM EDT Called [facility] records from [facility] Faxed request to [facility] for records * Telephone Encounter - Raven Agrawal MD - 05/18/2023 12:33 PM EDT Please call for records from hospital after she was life flighted and from [facility], * Telephone Encounter - Consuelo Fuentes LPN - 05/18/2023 10:55 AM EDT Admission/Start of Care Admission/Start of Care: Lucie RN, Calling from: [facility] Referral ordered by: Jacey Referral received for: Alf, PT, and OT Planned start of care date:Yes, Date 05/18/2023 Start of care completed on: YES Report/Concerns of:None Symptoms: none Vitals: T 97.7 P 105 RR 16 BP 140/72 SP O2 96% RA Narrative: Lucie was in to see patient earlier to today for start of care. She is asking for a Tylenol order, Patient wants to wean off of Oxycodone and would like take Tylenol PRN during the day and Oxycodone during the night. [facility] They will call with any updates or additional concerns from the upcoming HH visit. Last Office Visit: 04/14/2023 Has patient been scheduled or seen in the office for a follow up visit: Yes- on05/18 Advised that orders will be signed by Raven Agrawal MD and to fax to the office for signature. documented in this encounter Plan of Treatment Upcoming Encounters Date Type Department Care Team (Late st Contact Info) Description 08/24/2023 9:30 AM EDT Imaging Radiology [address], [address] [place] [address] 09/21/2023 3:40 PM EDT Office Visit Sleep Disorders Ctr [facility] [address] [place] [phone] Patricia Guevara DO [address] [place] [address] 10/19/2023 1:30 PM EDT Office Visit Cardiology, [facility] 132 [facility] [place] [address] Kaushal Solis PA-C [address] [place] [address] 12/24/2023 1:00 PM EDT Imaging Radiology [facility] 132 [facility] [place] [address] 01/10/2024 10:00 AM EST Laboratory Laboratory, [address] [phone] [facility] 132 [facility] [place] [address] 01/14/2024 4:00 PM EST Office Visit Hematology/Oncology [facility] 200 [facility] [place] [phone] Fatimah Quintero CRNP [address] [place] [address] [place] [address] 01/17/2024 3:00 PM EST Office Visit General Internal Medicine [facility] 200 [facility] [place] [address] Raven Agrawal MD [address] [place] [address] [place] [address] Scheduled Procedures Name Priority Associated Diagnoses Date/Ti [...] filedocumented as of this encounter Care Teams Diabetes Territory Manager Relationship Specialty Start Date End Date Raven Agrawal MD 200 [place] [address] PCP - General Internal Medicine 12/27/17 documented as of this encounter
--- OUTSIDE RECORDS SUMMARY | 2023-09-17 22:32 | External Medical Summary | Summary of Care ---
Author Name Unknown Organization [facility] Address [address] [facility] [place] [address] Phone [phone] Care Team Providers Care Cisco Unified Communications Engineer Name Role Phone Raven Agrawal MD Primary Care Provider [phone] Reason for Visit * Reason Onset Date Comments Appointment 08/23/2023 Encounter Details Date Type Department Care Team (Late st Contact Info) Description 08/23/2023 Telephone Radiology [address], [place] [address] [place] [phone] Lyn Fontenot TECH Appointment Allergies No known active allergiesdocumented as [...] neuropathy, without long-term current use of insulin ([facility]) Use upto twice daily E11.9 100 Strip [...] neuropathy, without long-term current use of insulin ([facility]) Use upto twice daily E11.9 100 Each [...] hemoglobin A1c goal of less than 7.0% ([facility]),Type 2 diabetes mellitus with diabetic neuropathy, without long-term current use of insulin ([facility]) Take 1 Tablet by mouth daily. 90 Tablet 3 06/13/2023 Active Fluticasone-Umecli din-Vilant 100-62.5-25 MCG/ACT Aerosol Powder Breath Activated (Trelegy Ellipta)Indication s:COPD, moderate ([facility]) Inhale 1 Puff by mouth in the morning. Start 11/27/2022 and stop symbicort (cancel Rx anoro ellipta). 180 Blister Dosing Unit 3 07/21/2023 Active Rosuvastatin Calcium 10 MG Oral Tablet (Crestor)Indicatio ns:Type 2 diabetes mellitus with diabetic neuropathy, without long-term current use of insulin ([facility]),Mixed dyslipidemia Take 1 Tablet by mouth in [...] use disorder 06/09/2018 Elevated hemoglobin 04/04/2018 Overview: 04/1913-LkMuvp-sdz EPO, ferritin,Tsat, neg JAK2 mutn LVH (left ventricular hypert rophy) due to hypertensive disease, without heart failure 12/27/2017 Overview: 06/1788-rvaq-no61%, no WMabn,mild A Scl,gr 2 DD HTN, [...] Real or Tata Meeks, RN, CCRC at [phone] [facility] RESEARCH OTHER*[id number] 04/12/2003 08/26/2009 Overview: Renamed Per Clinical Trials Billing Project. Pt is a participant in the [facility] (Consortium of Rheumatology Researchers of [place]) national data collection study. For further information please call Dr Alban Del Real or Tata Meeks, RN, CCRC at [phone] ABN CERVIX NEC-ANTEPART 11/24/200205/31 Elderly multigravida with [...] (Menactra) 03/13/2018 Pneumococcal Conjugate Vacci ne, 20-valent ([id number]) 04/06/2022 SARS-COV-2 (COVID-19) Vaccine Unspecified 2021 Seasonal [...] Description 08/24/2023 9:30 AM EDT Imaging Radiology [address] [place] [address] 09/21/2023 3:40 PM EDT Office Visit Sleep Disorders Ctr [facility] [address] [place] [address] Patricia Guevara DO [address] [place] [address] 10/19/2023 1:30 PM EDT Office Visit Cardiology, [facility] [address] [place] [address] Kaushal Solis PA-C [address] [place] [address] 12/24/2023 1:00 PM EDT Imaging Radiology [address] [place] [address] 01/10/2024 10:00 AM EST Laboratory Laboratory, [facility] [address] [place] [address] [facility] [address] [address] 01/14/2024 4:00 PM EST Office Visit Hematology/Oncology [facility] [address] [facility] [place] [phone] Fatimah Quintero CRNP 400 [facility] [place] [address] 01/17/2024 3:00 PM EST Office Visit General Internal Medicine [facility] [address] [facility] [place] [address] Raven Agrawal MD [address] [facility] [place] [address] Scheduled Procedures Name Priority Associated Diagnoses Date/Ti [...] 10/09/2020, Additional history exists HbA1c 01/20/2024 07/20/2023, 0 08/2022, 04/03/2022, Additional history exists B-12 07/19/2024 07/20/2023, 0 08/2022, 03/27/2021, Additional history exists O2 ASSESSMENT [...] filedocumented as of this encounter Care Teams Cisco Unified Communications Engineer Relationship Specialty Start Date End Date Raven Agrawal MD [address] [place] [address] PCP - General Internal Medicine 12/27/17 documented as of this encounter
--- OUTSIDE RECORDS SUMMARY | 2023-09-17 22:33 | External Medical Summary | Summary of Care ---
Author Name Unknown Organization [facility] Address [address] [address] Phone [phone] Care Team Providers Care Boat Oar Maker Name Role Phone Raven Agrawal MD Primary Care Provider [phone] Reason for Visit * Reason Comments Follow Up Return Encounter Details Date Type Department Care Team (Latest Contact Info) Description 07/20/2023 2:00 PM EDT Office Visit Hematology/Oncology [facility] [place] [address] [facility] [place] [phone] Fatimah Quintero CRNP [address] [facility] [place] [address] Immune thrombocytopenia (HCC)*; Secondary polycythemia; Acute blood loss anemia; Lymphadenopathy of head and neck Allergies No known active allergiesdocumented as of this encounter (statuses as of 07/21/2023) Medications Medication Sig Dispensed Refills Start Date [...] hours as needed for Wheezing. 120 mL 12/25/2020 Active CPAP every night at bedtime . Active [...] disorder with single episode, in remission ([facility]),Type 2 diabetes mellitus with diabetic neuropathy, without long-term current use of insulin ([facility]),Cervical spinal stenosis,Cervical spondylosis TAKE 1 CAPSULE BY MOUTH EVERY MORNING 90 Capsule 1 05/03/2023 Active Nicotine 21 MG/24HR Transdermal Patch 24 Hour (Nicoderm CQ) Place 1 Patch topically on the skin daily. 05/16/2023 Active oxyCODONE HCl 5 MG Oral Tablet (Oxy IR) Take 1 Tablet by mouth every 6 hours as needed for Pain, Mild. 05/16/2023 Active [employer]Touch Verio In Vitro Strip (Glucose Blood)Indications: Type 2 diabetes mellitus with diabetic neuropathy, without long-term current use of insulin ([facility]) Use upto twice daily E11.9 100 Strip 11 05/19/2023 Active INDIGO BiosciencesToOilAndGasRecruiter Verio w/Device KitIndications:Typ e 2 diabetes mellitus with diabetic neuropathy, without long-term current use of insulin ([facility]) Use upto twice daily E11.9 1 Kit 05/19/2023 Active INDIGO BiosciencesTouch UltraSoft LancetsIndications :Type 2 diabetes mellitus with diabetic neuropathy, without long-term current use of insulin ([facility]) Use upto twice daily E11.9 100 Each 1 05/19/2023 Active Lisinopril 10 MG Oral Tablet (Prinivil)Indicati ons:LVH (left ventricular hypertrophy) due to hypertensive disease, without heart failure,Type 2 diabetes mellitus with hemoglobin A1c goal of less than 7.0% ([facility]),HTN, goal below 130/80 Take 1 Tablet by mouth every evening. 05/19/2023 Active Metoprolol Succinate ER 100 MG Oral Tablet Extended Release 24 Hour (toPROL XL)Indications:LVH (left ventricular hypertrophy) due to hypertensive disease, without heart failure,HTN, goal below 130/80 Take 1 Tablet by mouth in the morning. --takes at night. 05/19/2023 Active Acetaminophen 500 MG Oral Tablet (Tylenol)Radhatio ns:Pubic ramus fracture, unspecified laterality, with routine [...] mouth daily. 90 Tablet 3 06/13/2023 Active Hospital, Clinic, or Other Facility Administered Medication Ordered Dose Route Frequency Start Date End Date Status Albuterol Sulfate (Proventil) (2.5 MG/3ML) 0.083% inhalation solution 2.5 mgIndications:COPD, moderate (HCC) 2.5 mg NEBULIZER PRN 12/29/2022 12/29/2023 Active documented as of this encounter (statuses as of 07/21/2023) Active Problems Problem Noted Date Diagnosed Date Type 2 diabetes mellitus wit h diabetic neuropathy, without long-term current use of insulin 10/06/2022 Mixed dyslipidemia 10/06/2022 COPD, group B, by GOLD 2017 classification 06/08 Overview: Per COPD GOLD Classification Granulomatous lung disease 06/27/2021 Dense breast tissue on mammogram 01/06/2019 Overview: 01/17; Tobacco use disorder 06/09/2018 Elevated hemoglobin 04/04/2018 Overview: 04/1976-CbVhoy-nvb EPO, ferritin,Tsat, neg JAK2 mutn LVH (left ventricular hypert rophy) due to hypertensive disease, without heart failure 12/27/2017 Overview: 06/1768-wrej-lk31%, no WMabn,mild A Scl,gr 2 DD HTN, [...] as of this encounter (statuses as of 07/21/2023) Resolved Problems Problem Noted Date Diagnosed Date [...] or Tata Meeks, RN, CCRC at [phone] [employer] RESEARCH OTHER*[id number] 04/12/2003 08/26/2009 Overview: Renamed Per Clinical Trials Billing Project. Pt is a participant in the [employer] ([employer]ortium of Rheumatology Researchers of [place]) national data collection study. For further information please call Dr Alban Del Real or Tata Meeks RN, CCRC at [phone] ABN CERVIX NEC-ANTEPART 11/24/200205/31 Elderly multigravida with an tepartum condition or complication 10/10/2002 06/22/2017 Arthritis, rheumatoid 2017 DIABETES-ANTEPARTUM 06/23/19 18 documented as of this encounter (statuses as of 07/21/2023) Immunizations Name Administration Dates Next Due COVID-19 [...] (Menactra) 03/13/2018 Pneumococcal Conjugate Vacci ne, 20-valent ([id number]) 04/06/2022 SARS-COV-2 (COVID-19) Vaccine Unspecified 2021 Seasonal [...] Former Cigarettes 1 36 Smokeless Tobacco: Never Tobacco Cessation:Counseling Given: Not Answered Comments:06/29/22 currently smoking 1 [...] Sign Reading Time Taken Comments Blood Pressure 114/70 07/20/2023 2:11 PM EDT Pulse 88 07/20/2023 2:11 PM EDT Temperature 36.9 C (98.4 F) 07/20/2023 2:11 PM ED T Respiratory Rate - - Oxygen Saturation 90% 07/20/2023 2:11 PM EDT Inhaled Oxygen Concentration - - Weight 70 kg (154 lb 4.8 oz) 07/20/2023 2:11 PM EDT Height - - Body Mass Index 27.17 01/06/2023 11:00 AM EST documented in this encounter Progress Notes * Fatimah Quintero CRNP - 07/20/2023 2:00 PM EDT Hematology/Oncology Outpatient Clinic note [facility] [place] [place] [address] [place] [address] Name: Aura Hardy Date: 07/20/2023 CHIEF COMPLAINT: Auracaitie Hardy is a 57 year old female patient of Dr. Winston Angie here today for f/u visit today. From Patient chart confirmed with patient. HEMATOLOGY/ONCOLOGY DIAGNOSIS: ITP Secondary erythrocytosis CURRENT TREATMENT: Observation HISTORY: Patient who has had Rheumatoid Arthritis, Still's Disease, since her early 20s. She has been maintained on oral Methotrexate and Enbrel. Recently she developed a febrile illness. A CBCD was obtained and her Platelet Count was 75,000. Three days later it had risen to 146,000. Then two weeks later it had fallen to 58,000. 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 Nguyen, stopped her oral Methotrexate and her Enbrel. On kezvara. She only had episode of thrombocytopenia in July of 2015. Since August of 2015 up until March of 2018 herplatelet counts are within normal limits. She also was found to have elevated hemoglobin. She has history of smoking and continues to smoke 1pack per day. Erythropoietin level was normal and JAK2 mutation was negative. Interval History: On 04/24/2023 states she fell down a flight of stairs at night with loss of consciousness, called ambulance and was life flighted, she had right subarachnoid hemorrhage, pelvic fracture involving the sacrum extending to SI joint, superior and inferior pubic rami, left medial and lateral tibial plateau fractures, left proximal fibula fracture and right transverse process fracture., status post open reduction internal fixation 04/28/2023, nonweightbearing left leg. Postoperative course complicated by agitation, acute hypoxemic respiratory failure, hospital-acquired pneumonia 2nd run of nonsustained V-tach, could not recall event up until 3 days following the surgery also had a large bruise on her right lateral hip and did not recall having any cough or shortness of breath. Was in the ICU for 8 days Echo in the hospital showed EF 60-65%, mqef-qd-nhwneqhs MR and went to rehab and discharge with home health. Was only taking oxycodone 5 mg as needed maybe twice a day, requiring moderate assistance with most ADLs including transfers, weight- bearing on right leg only for transfers, use wheelchair at all times follow up with Orthopedic in 2 week. Subarachnoid hemorrhage was followed with serial CTs which had noted improvement and did not require any intervention, follow up with Neurosurgery also in 2 weeks. Pneumonia treated during hospitalization, none at rehab is off oxygen, continue CPAP rheumatoid arthritis, stools disease, history of ITP was monitored nicotine patch was given for tobacco use disorder. HISTORY OF PRESENT ILLNESS: Aura Hardy is a 57 year old female with a history as outlined above. Currently here for f/u visit today. Patient's daughter had been staying with her to take care of her for one month. Went home about one month ago. Still ambulating with a cane right now but significantly improved from where she was. Still has some trouble with word searching and short term memory but slowly improving. Noticed a submandibular lymph node enlarged about two weeks ago. Still there now. Went to dentist and was told nothing in her mouth should have caused it. Is non-tender. Currently has a bruise right upperarm that is resolving. Was there for a couple weeks. Might have run into something. Has resumed smoking unfortunately. About a quarter PPD. No changes in RA treatment regimen. Does have chronic diabetic neuropathy in her feet that is stable. Past Medical History: Diagnosis Date ABN CERVIX NEC-ANTEPART 11/24/2002 Adjustment disorder with depressed mood Arthritis, rheumatoid (HCC) Rheumatoid Arthritis COPD (chronic obstructive pulmonary disease) (HCC) Diabetes mellitus complicating , antepartum Diabetes Mellitus-Antepartum DM type 2, goal A1c below 7 12/16/2010 ELDERLY MULTIGRAVIDA /W ANTEPARTUM CONDITION 10/10/2002 Lipoma of other specified sites 12/15/01 left arm biopsy Still's disease of adult (HCC) 04/17/2015 Undiagnosed cardiac murmurs 03/11/2011 Past Surgical History: Procedure Laterality Date DELIVERY Delivery x3 with tubal COLONOSCOPY, DIAGNOSTIC (RECTUM) 02/02/2018 normal, repeat 10 yrs/COLONOSCOPY FLEXIBLE PROXIMAL DIAGNOSTIC performed by Annie Kong DO at ENDOSCOPY [facility] INJECT DX/THER SUBSTANCE INTERLAMINAR CERVICAL/THORACIC W IMAGE GUIDE 10/27/2021 INJECTION SPINE LUMBAR CERVICAL OR THORACIC performed by Lucas Juarez DO at OR [facility] LIGATE/CUT OVIDUCT(S) Social History Socioeconomic History Marital status: Spouse name: Not on file Number of children: Not on file Years of education: Not on file Highest education level: Not on file 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 Tobacco Use Smoking status: Former Current packs/day: 1.00 Average packs/day: 1 pack/day for 36.0 years (36.0 ttl pk-yrs) Types: Cigarettes Smokeless tobacco: Never Tobacco comments: 06/29/22 currently smoking 1 ppd Vaping Use Vaping status: Never Used Substance and Sexual Activity Alcohol use: Yes Comment: rare 3/yr Drug use: No Sexual activity: Yes Partners: Male control/protection: Surgical Comment: btl Other Topics Concern Service Not Asked Blood Transfusions Not Asked Caffeine Concern Not Asked Occupational Exposure Not Asked Hobby Hazards Not Asked Sleep Concern Not Asked Stress Concern Not Asked Weight Concern Not Asked Special Diet Not Asked Back Care Not Asked Exercise Not Asked Bike Helmet Not Asked Seat Belt Yes Self-Exams Yes Comment: breast Social History Narrative 2 dogs and 1 cat No mold Social Determinants of Health Financial Resource Strain: Not on file Food Insecurity: No Food Insecurity (01/03/2019) Hunger Vital Sign Worried About Running Out of Food in the Last Year: Never true Ran Out of Food in the Last Year: Never true Transportation Needs: Not on file Physical Activity: Not on file Stress: Not on file Social Connections: Not on file Intimate Partner Violence: Not on file Housing Stability: Not on file Review of patient's allergies indicates: No Known Allergies Current Outpatient Medications Medication Sig Dispense Refill VITAMIN D 2000 UNIT PO TABS one tablet daily] KEVZARA 200 MG/1.14ML SOSY Injection every other week Multiple Vitamin (MULTI-DAY) Tablet Take 1 Tab by mouth daily. aspirin enteric coated 81 MG TBEC Take 1 Tab by mouth daily. St 09/16 100 Tab 3 traMADol (ULTRAM) 50 MG Tablet Take 1 Tablet by mouth daily as needed for Pain. 1 Tab 0 zolpidem (AMBIEN) 10 MG Tablet Take 1 Tablet by mouth at bedtime. DrMurphy 7 Tab 0 Melatonin ER 1 MG TBCR at bedtime (Patient taking differently: Take 3 mg by mouth at bedtime as needed for Sleep. at bedtime) Ipratropium-Albuterol 0.5-2.5 (3) MG/3ML Inhalation Solution (Duoneb) Inhale 3 mL via nebulizer every 6 hours as needed for Wheezing. 120 mL 0 CPAP every night at bedtime . Clobetasol Propionate 0.05 % External Cream (Temovate) Apply topically to affected area 2 times a day. To affected area for up to two weeks. (Patient taking differently: Apply topically to affected area as needed (yeast infections). To affected area for up to two weeks.) 15 g 1 amLODIPine Besylate 2.5 MG Oral Tablet (Norvasc) TAKE 1 TABLET BY MOUTH EVERY DAY 90 Tablet 4 Pcunohbtqfi-Erayzbiyz-Cnpmvu 100-62.5-25 MCG/ACT Aerosol Powder Breath Activated (Trelegy Ellipta) Inhale 1 Puff by mouth in the morning. Start 11/27/2022 and stop symbicort (cancel Rx anoro ellipta).60 Blister Dosing Unit 5 Rosuvastatin Calcium 10 MG Oral Tablet (Crestor) TAKE 1 TABLET BY MOUTH EVERY DAY 90 Tablet 2 Gabapentin 600 MG Oral Tablet (Neurontin) TAKE 1 TABLET IN MORNING, 1.5 TABLET AT NOON AND 1.5 TABLET BEFORE BEDTIME 360 Tablet 1 Ketoconazole 2 % External Cream Apply to affected areas twice daily-nasolabial folds x2-4 wks, thenas needed 30 g 1 DULoxetine HCl 60 MG Oral Capsule Delayed Release Particles (Cymbalta) TAKE 1 CAPSULE BY MOUTH EVERY MORNING 90 Capsule 1 Nicotine 21 MG/24HR Transdermal Patch 24 Hour (Nicoderm CQ) Place 1 Patch topically on the skin daily. oxyCODONE HCl 5 MG Oral Tablet (Oxy IR) Take 1 Tablet by mouth every 6 hours as needed for Pain, Mild. INDIG[employer] BiosciencesTouch Verio In Vitro Strip (Glucose Blood) Use upto twice daily E11.9 100 Strip 11 [employer]Touch Verio w/Device Kit Use upto twice daily E11.9 1 Kit 0 INDIG[employer] BiosciencesTouch UltraSoft Lancets Use upto twice daily E11.9 100 Each 1 Lisinopril 10 MG Oral Tablet (Prinivil) Take 1 Tablet by mouth every evening. Metoprolol Succinate ER 100 MG Oral Tablet Extended Release 24 Hour (toPROL XL) Take 1 Tablet by mouth in the morning. --takes at night. Acetaminophen 500 MG Oral Tablet (Tylenol) Take 2 Tablets by mouth every 8 hours as needed for Pain, Moderate. Jentadueto XR 5-1000 MG Oral Tablet Extended Release 24 Hour (linaGLIPtin- metFORMIN HCl ER) Take 1 Tablet by mouth daily. 90 Tablet 3 Current Facility-Administered Medications Medication Dose Route Frequency Provider Last Rate Last Admin Albuterol Sulfate (Proventil) (2.5 MG/3ML) 0.083% inhalation solution 2.5 mg 2.5 mg Nebulizer PRN Raven Agrawal MD 2.5 mg at 01/06/23 1037 REVIEW OF SYSTEMS: See HPI - otherwise negative OBJECTIVE: Filed Vitals: 07/20/23 1411 BP: 114/70 Pulse: 88 Temp: 36.9 C (98.4 F) TempSrc: Tympanic SpO2: 90% Weight: 70 kg (154 lb 4.8 oz) Wt Readings from Last 5 Encounters: 07/20/23 70 kg (154 lb 4.8 oz) 04/14/23 72.2 kg (159 lb 1.6 oz) 01/06/23 71.9 kg (158 lb 8.2 oz) 12/29/22 73.2 kg (161 lb 6.4 oz) 11/27/22 70.3 kg (155 lb) PHYSICAL EXAM: General Appearance: No acute distress Lymph Nodes: +2 cm right submandibular lymph node, firm and fixed Lungs/Thorax: Normal - Clear to auscultation Heart: Normal - Regular rate and rhythm, normal S1, S2, no appreciable murmurs Extremities: +1 edema LLE, slightly erythematous, healing surgical scar Neurologic: alert and oriented x 4, ambulating with cane LABS: Component Latest Ref Rng 05/13/2023 WBC 4.00 - 10.80 K/uL 6.67 RBC 3.85 - 5.15 M/uL 4.17 HGB 12.0 - 15.3 g/dL 11.9 (L) HCT 36.0 - 45.2 % 37.7 MCV 81.5 - 97.5 fL 90.4 MCH 27.0 - 34.0 pg 28.5 MCHC 32.0 - 36.0 g/dL 31.6 RDW 11.5 - 15.5 % 16.0 PLT 140 - 400 K/uL 371 MPV 6.6 - 11.1 fL 10.3 IMPRESSION/PLAN: History of ITP Secondary erythrocytosis Acute blood loss anemia In April had a fall down the stairs resulting in a right subarachnoid hemorrhage, pelvic fracture involving the sacrum extending to SI joint, superior and inferior pubic rami, left medial and lateral tibial plateau fractures, left proximal fibula fracture and right transverse process fracture., status post open reduction internal fixation 04/28/2023. Subarachnoid hemorrhage was followed with serial CTs which had noted improvement and did not require any intervention. Is back home now and doing remarkably well. Ambulating with a cane. Lab results 05/13/23 reviewed: Hgb improving at 11.9 Platelet count WNL CBCD, ferritin and iron screen ordered to be completed today to follow up on anemia. Otherwise continue observation Smoking cessation encouraged Continue to follow with pulmonary and complete CT chest surveillance for pulmonary nodules Right submandibular lymphadenopathy U/S of neck ordered. Further recommendations based on results. RTC in six months with provider with cbc/diff and cmp TERRENCE Nam documented in this encounter Nursing Notes * Neela Aleman MED ASSIST - 07/20/2023 2:13 PM EDT Patient identifed by name and birthdate Do you have any concerns about pain management for today's visit? No Living Will or Advance Directive for Health Care as noted on the problem list. [employer] is a way you can talk to your provider on line through e-mail. Would you like to sign up? I can activate it for you? ALREADY ACTIVE Filed Vitals: 07/20/23 1411 BP: 114/70 Pulse: 88 Temp: 36.9 C (98.4 F) TempSrc: Tympanic SpO2: 90% Weight: 70 kg (154 lb 4.8 oz) Patient was instructed to not get up on the exam table/exam chair until directed and assisted by their provider; patient is to remain seated in the chair/ wheelchair/ exam table/ exam chair for fall prevention and safety reasons. Patient is aware to have assistance to step down off exam table/exam chair with personnel. Patient voiced full comprehension of instructions. documented in this encounter Plan of Treatment Upcoming Encounters Date Type Department Care Team (Late st Contact Info) Description 07/21/2023 5:00 PM EDT Office Visit General Internal Medicine [address] [address] [place] [address] [facility] [address] [place], [place] [address] Raven Agrawal MD [address] [place], [place] [address] 07/22/2023 1:30 PM EDT Office Visit Cardiology, [facility] [address] [facility] [place] [address] Kaushal Solis PA-C [address] [place] [address] 09/21/2023 3:40 PM EDT Office Visit Sleep Disorders Ctr [facility] [address] [facility] [place] [phone] Patricia Guevara DO 132 [facility] [place] [address] 10/13/2023 5:00 PM EDT Office Visit General Internal Medicine [facility] [address] [facility] [address] [place] [address] Raven Agrawal MD [address] [facility] [place] [place] [address] 12/24/2023 1:00 PM EDT Imaging Radiology [facility] [address] [facility] [place] [address] 01/14/2024 4:00 PM EST Office Visit Hematology/Oncology [facility] [address] [place], [place] [phone] Fatimah Quintero CRNP 400 [facility] [place] [address] Pending Results Name Type Priority Associated Diagnoses Date /Time US HEAD AND NECK Medical Imaging STAT Lymphadenopathy of head and neck 07/21/2023 2:49 PM EDT Scheduled Orders Name Type Priority Associated Diagnoses Orde r Schedule CBC WITH WBC DIFFERENTIAL Lab STAT Immune thrombocytopenia (HCC) Secondary polycythemia Expected: 01/21/2024 (Approximate), Expires: 07/21/2024 COMPREHENSIVE METABOLIC PANEL Lab STAT Immune thrombocytopenia (HCC) Secondary polycythemia Expected: 01/21/2024 (Approximate), Expires: 07/21/2024 Scheduled Procedures Name Priority Associated Diagnoses Date/Ti [...] ASSESSMENT COMPLETED IN PAST YEAR FOR COPD 07/19/2024 07/20/2023 Colonoscopy 02/03/2028 02/02/2018, 02/02/2018 Colorectal Cancer Screening [...] filedocumented as of this encounter Results * FERRITIN (07/20/2023 2:59 PM EDT) Ferritin 100 13 - 150 ng/mL 07/21/2023 6:38 AM EDT LABORATORY [facility] Comment:Postmenopausal women have higher ferritin levels than pre-menopausal women. The above reference interval is based on pre-menopausal women. Blood Venous blood specimen / Unknown Venipuncture / Unknown 07/20/2023 2:59 PM EDT 07/20/2023 2:59 PM EDT Fatimah OCAMPO LAB BLOOD ORDER [facility] [address] [place] [address] * IRON SCREEN, INCLUDING TIBC (07/20/2023 2:59 PM EDT) Iron 69 33 - 151 ug/dL 07/21/2023 12:08 PM EDT LABORATORY [facility] Iron Binding Capacity 353 250 - 425 ug/dL 07/21/2023 12:08 PM EDT LAB[facility] Transferrin Saturation Percent 20 15 - 55 % 07/21/2023 12:08 PM EDT [facility] Blood Venous blood specimen / Unknown Venipuncture / Unknown 07/20/2023 2:59 PM EDT 07/20/2023 2:59 PM EDT Fatimah OCAMPO LAB BLOOD ORDER [facility] [address] [place] [address] documented in this encounter Visit Diagnoses Diagnosis Immune thrombocytopenia (HCC)- Primary Other secondary thrombocytopenia Secondary polycythemia Polycythemia, secondary Acute blood loss anemia Acute posthemorrhagic anemia Lymphadenopathy of head and neck documented in this encounter Care Teams Boat Oar Maker Relationship Specialty Start Date End Date Raevn Agrawal MD [address] [place] [address] PCP - General Internal Medicine 12/27/17 documented as of this encounter
--- OUTSIDE RECORDS SUMMARY | 2023-09-17 22:33 | External Medical Summary ---
Author Name Unknown Address Unknown Organization K09:[facility] [place] [id number] Laboratory Report Ordering Provider Test Date Status DUC KRISHNAMURTHY 07/20/2023 14:59:07 Final Observation Date Value Abnormality Reference (Units ) Status BUN 07/20/2023 14:59:07 13 6-20 (mg/dL) Final Creatinine 07/20/2023 14:59:07 0.9 0.5-1.0 (mg/dL) Final Glomerular filtration rate/1.73 sq M.predicted [Volume Rate/Area] in Serum, Plasma or Blood by Creatinine-based formula (CKD-EPI) 07/20/2023 14:59:07 75 >=60 (mL/min) Final eGFR is calculated based on the CKD-EPI 2020 equation Sodium 07/20/2023 14:59:07 138 135-146 (m mol/L) Final Potassium 07/20/2023 14:59:07 4.3 3.5-5.1 (m mol/L) Final Cl 07/20/2023 14:59:07 100 98-107 (mm ol/L) Final CO2 07/20/2023 14:59:07 26 22-32 (mmo l/L) Final Anion gap 07/20/2023 14:59:07 12 7-15 (mmol /L) Final Glucose 07/20/2023 14:59:07 258 Above high normal 70 -120 (mg/dL) Final Calcium 07/20/2023 14:59:07 10.0 8.4-10.2 ( mg/dL) Final Performing Location [facility] [place] [address]
--- OUTSIDE RECORDS SUMMARY | 2023-09-17 22:33 | External Medical Summary ---
Author Name Unknown Address Unknown Organization K01:[facility] [facility] [address] [place] [address] Laboratory Report Ordering Provider Test Date Status DIOR CABRERA 07/20/2023 14:59:07 Final Observation Date Value Abnormality Reference (Units ) Status TSH 07/20/2023 14:59:07 1.61 0.27-4.20 (uIU/mL) Final Performing Location LABORATORY [facility] - [address] [place] [address]
--- OUTSIDE RECORDS SUMMARY | 2023-09-17 22:33 | External Medical Summary | Summary of Care ---
Author Name Unknown Organization [facility] Address [address] [place] [address] Phone [phone] Care Team Providers Care Lining Machine Tender Name Role Phone Raven Agrawal MD Primary Care Provider [phone] Reason for Referral * Precert (Within 10 days (routine)) - Pending Review Specialty Diagnoses / Procedures Referred By Contgabe t Referred To Contact Radiology Diagnoses Abnormal echocardiogram Procedures MRI CARDIAC, ADULT W WO CONTRAST Kaushal Solis PA-C [address] [place] [address] Referral ID Status Reason Start Date Expiration Date Visits Requested Visits Authorized [id number] Pending Review Precert 07/29/2023 999 999 Reason for Visit * Reason Comments Follow Up Encounter Details Date Type Department Care Team (Latest Contact Info) Description 07/22/2023 1:30 PM EDT Office Visit Cardiology, [facility] [address] [place] [address] Kaushal Solis PA-C [address] [place] [address] Abnormal echocardiogram*; LVH (left ventricular hypertrophy) due to hypertensive disease, without heart failure; HTN, goal below 130/80; Hypertensive heart disease without congestive heart failure; Abnormal EKG; Prolonged QT interval; Immune thrombocytopenia (HCC) Allergies No known active allergiesdocumented as [...] current use of insulin ([facility]),Mixed dyslipidemia TAKE 1 TABLET BY MOUTH EVERY DAY 90 Tablet 2 3 Active Gabapentin 600 MG Oral Tablet (Neurontin)Indica tions:Type 2 diabetes mellitus with diabetic neuropathy, without long-term current use of insulin ([facility]) TAKE 1 TABLET IN MORNING, 1.5 [...] [facility]HTN, goal below 130/80 Take 2 Tablets [...] use disorder 06/09/2018 Elevated hemoglobin 04/04/2018 Overview: 04/1989-GoHbfg-pwp EPO, ferritin,Tsat, neg JAK2 mutn LVH (left ventricular hypert rophy) due to hypertensive disease, without heart failure 12/27/2017 Overview: 06/1720-vxsl-ev47%, no WMabn,mild A Scl,gr 2 DD HTN, [...] Real or Tata Meeks, RN, CCRC at [phone] [facility] RESEARCH OTHER*[id number] 04/12/2003 08/26/2009 Overview: Renamed Per Clinical Trials Billing Project. Pt is a participant in the [facility] (Consortium of Rheumatology Researchers of [place]) national data collection study. For further information please call Dr Alban Del Real or Tata Meeks, RN, CCRC at [phone] ABN CERVIX NEC-ANTEPART 11/24/200205/31 Elderly multigravida with [...] (Menactra) 03/13/2018 Pneumococcal Conjugate Vacci ne, 20-valent ([id number]) 04/06/2022 SARS-COV-2 (COVID-19) Vaccine Unspecified 2021 Seasonal [...] Sign Reading Time Taken Comments Blood Pressure 124/74 07/22/2023 1:39 PM EDT Pulse 74 07/22/2023 1:39 PM EDT Temperature - - Respiratory Rate 16 07/22/2023 1:39 PM EDT Oxygen Saturation - - Inhaled Oxygen Concentration - - Weight 70.3 kg (155 lb) 07/22/2023 1:39 PM EDT Height - - Body Mass Index 27.29 01/06/2023 11:00 AM EST documented in this encounter Progress Notes * Kaushal Solis PA-C - 07/22/2023 1:30 PM EDT SUBJECTIVE: Aura Hardy is a 57 year old who returns today for a routine cardiology follow-up appointment. Last visit to this office was with Dr. Smith in June 2022 Patient with multiple interim hospitalizations including a significant mechanical fall down steps on 04/24/2023, resultant traumatic brain injury with loss of consciousness, subarachnoid hemorrhage, left medial lateral tibial plateau fractures status post open reduction internal fixation, left proximal fibula fracture, multiple pelvic fractures, transverse process fracture, acute hypoxic respiratory failure. Resting echocardiography requested by Dr. Smith in April 2023 demonstrated the following: May 24, 2023 TTE Interpretation Summary (as per Dr. Rachel): The qualitative LV ejection fraction is 65-69% (normal). The LV wall thickness is severely increased (concentric). The resting peak instantaneous left ventricular outflow tract gradient is 59 mm Hg. The inducible peak instantaneous left ventricular outflow tract gradient is 74 mm Hg. There is severe (with septal contact) systolic anterior motion of the anterior mitral valve leaflet at rest. Moderate to severe mitral regurgitation.Compared to last available study changes are noted as follows: Resting and inducible LVOT gradient now present. Systolic anterior motion of the mitral valve with moderate to severe mitral regurgitation now present. No chest pain. No palpitations. No shortness of breath with activity (walks with a cane). Can walk all around [facility] [employer]. No significant fluid retention. No dizziness, near syncope, or syncope. No epistaxis, hemoptysis, melena, hematochezia, or gross hematuria. CPAP QHS. + Ongoing tobacco use. Problem List: Longstanding hypertension with left ventricular hypertrophy and asymmetric left ventricular wall thickening. Remote history of vasovagal syncope. Chronic rheumatoid arthritis with adult Still disease on previous immunosuppressive therapy Right subclavian stenosis with left greater than right blood pressure discrepancies Type II diabetes mellitus Immune thrombocytopenia MASHA, CPAP therapy COPD, chronic tobacco abuse Elevated hemoglobin. Hepatic steatosis Patient Active Problem List Diagnosis Type 2 diabetes mellitus with hemoglobin A1c goal of less than 7.0% (HCC) Still's disease of adult (HCC) Immune thrombocytopenia (HCC) Deviated nasal septum Rheumatoid arthritis involving multiple sites with positive rheumatoid factor (HCC) LVH (left ventricular hypertrophy) due to hypertensive disease, without heart failure HTN, goal below 130/80 Screen for colon cancer History of Clostridium difficile infection MASHA on CPAP Hepatic steatosis Elevated hemoglobin (HCC) Tobacco use disorder Dense breast tissue on mammogram Granulomatous lung disease (HCC) COPD, group B, by GOLD 2017 classification (HCC) Type 2 diabetes mellitus with diabetic neuropathy, without long-term current use of insulin (HCC) Mixed dyslipidemia Traumatic subarachnoid hemorrhage with loss of consciousness of 30 minutes or less (HCC) Past Medical History: Diagnosis Date ABN CERVIX [...] yrs/COLONOSCOPY FLEXIBLE PROXIMAL DIAGNOSTIC performed by Annie Kong, DO at ENDOSCOPY [facility] INJECT DX/THER SUBSTANCE INTERLAMINAR CERVICAL/THORACIC W IMAGE GUIDE 10/27/2021 INJECTION SPINE LUMBAR CERVICAL OR THORACIC performed by Lucas Juarez, DO at OR [facility] LIGATE/CUT OVIDUCT(S) Family History Problem Relation Name Age of Onset Heart Disorder Father unknown cause Asthma Daughter Breast Cancer Aunt (Unspecified) Breast Cancer Grandmother (Paternal) Other (info) Mother tumor around ovary, benigng Eye Problems No significant family history denies fm: glaucoma, Blindness, RD, AMD Social History Socioeconomic History Marital status: Spouse [...] on file Housing Stability: Not on file Complete Review of Systems is as stated above, negative, or noncontributory. Review of patient's allergies indicates: No Known [...] bedtime as needed for Sleep. at bedtime) CPAP every night at bedtime . Clobetasol [...] BY MOUTH EVERY DAY 90 Tablet 4 Rosuvastatin Calcium 10 MG Oral Tablet (Crestor) TAKE 1 TABLET BY MOUTH EVERY DAY 90 Tablet 2 Gabapentin 600 MG Oral Tablet (Neurontin) TAKE 1 TABLET IN MORNING, 1.5 TABLET AT NOON AND 1.5 TABLET BEFORE BEDTIME 360 Tablet 1 Ketoconazole 2 % External Cream Apply to affected areas twice daily-nasolabial folds x2-4 wks, thenas needed (Patient not taking: Reported on 07/21/2023) 30 g 1 DULoxetine HCl 60 MG Oral Capsule Delayed Release Particles (Cymbalta) TAKE 1 CAPSULE BY MOUTH EVERY MORNING 90 Capsule 1 Nicotine 21 MG/24HR Transdermal Patch 24 Hour (Nicoderm CQ) Place 1 Patch topically on the skin daily. (Patient not taking: Reported on 07/21/2023) OneTouch Verio In Vitro Strip (Glucose Blood) Use upto twice daily E11.9 (Patient not taking: Reported on 07/21/2023) 100 Strip 11 OneTouch Verio w/Device Kit Use upto twice daily E11.9 (Patient not taking: Reported on 07/21/2023) 1 Kit 0 OneTouch UltraSoft Lancets Use upto twice daily E11.9 (Patient not taking: Reported on 07/21/2023) 100 Each 1 Lisinopril 10 MG Oral [...] Tablet by mouth daily. 90 Tablet 3 Sszjsvrmshq-Speqzrcjq-Kmhzil 100-62.5-25 MCG/ACT Aerosol Powder Breath Activated (Trelegy Ellipta) Inhale 1 Puff by mouth in the morning. Start 11/27/2022 and stop symbicort (cancel Rx anoro ellipta).180 Blister Dosing Unit 3 Current Facility-Administered Medications Medication Dose Route Frequency Provider Last Rate Last Admin Albuterol Sulfate (Proventil) (2.5 MG/3ML) 0.083% inhalation solution 2.5 mg 2.5 mg Nebulizer PRN Raven Agrawal MD 2.5 mg at 01/06/23 1037 OBJECTIVE/PHYSICAL EXAMINATION: BP 124/74 | Pulse 74 | Resp 16 | Wt 70.3 kg (155 lb) | LMP 10/10/2014 (Exact Date) | BMI 27.29 kg/m | BSA 1.77 m General: Alert and oriented x3. No acute distress. Pleasant. Comfortable. Cooperative. Skin: Healing ecchymosis right upper extremity. No rash Eyes: PER. Conjunctiva pink, sclera clear. HENT: Normocephalic. Atraumatic. Neck: No carotid bruits. No JVD. No HJR. Heart: RRR. Grade II/ systolic ejection murmur. No diastolic murmur. Lungs: Diminished. Clear to auscultation. No wheeze. No rales. No rhonchi Abdomen: +BS. Soft. Nontender. No masses. No organomegaly. Extremities: No clubbing, cyanosis, or edema. Pulses: radial=2/4, posterior tibial=2/4. Limited neurological examination: No focal deficit. Additional Data: EKG on July 22, 2023 revealed normal sinus rhythm at 73 bpm with possible left atrial enlargement, left ventricular hypertrophy, nonspecific T- wave abnormality, prolonged QTc of 475 ms. ASSESSMENT AND RECOMMENDATIONS/PLAN: Abnormal echocardiogram, severe concentric left ventricular hypertrophy with resting peak instantaneous left ventricular outflow tract gradient 59 mm Hg, inducible peak instantaneous left ventricularoutflow tract gradient 74 mm Hg, severe (with septal contact) systolic anterior motion of the anterior mitral valve leaflet at rest, moderate to severe mitral regurgitation. ? Hypertrophic obstructive cardiomyopathy versus other (? Amyloid) Refer for Cardiac MRI Bajandas/lambda light chains, free with ratio, random urine. Serum immunofixation. Urine immunofixation, bence meade protein, random urine. TSH and magnesium requested as well given the prolonged QTc. Ambulatory Zio after the Cardiac MRI Future considerations: ? Camzyos if HOCM Longstanding hypertension. Amlodipine discontinued by PCP yesterday due to observed hypotension. Tobacco abuse. Cessation recommended. Kaushal Solis PA-C Department of Cardiology I spent a total of 30-39 minutes (exact time 30 mins) on the date of service in preparation, delivery, and documentation of the care provided to Aura Hardy excluding any time spent in the performance of separately billed services. This visit involved medical care services related to at least one serious condition or complex condition requiring ongoing care. This chart was completed in part utilizing [employer] Speech Voice Recognition Software. Grammatical errors, random word insertions, prounoun errors, and incomplete sentences are an occasional consequence of this system due to software l imitations, ambient noise, and hardware issues. Any formal questions or concerns about the content,text, or information contained within the body of this dictation should be directly addressed to the provider for clarification. documented in this encounter Nursing Notes * Nba Miles RN - 07/22/2023 1:37 PM EDT Examination Room: room 2 Name: Aura Hardy Date of : (1965). Reason for Visit: for follow up Interim Hospitalization(s): denies Problems/Concerns: denies Chest Pain/SOB: denies [facility] Discussed: Not applicable [facility] is a way you can talk to your provider online through e-mail. Would you like to sign up? I can activate it for you? ALREADY ACTIVE Patient was instructed to not get up on the exam table until directed and assisted by their provider; patient is to remain seated in the chair/ wheelchair/ exam table for fall prevention and safety reasons. Patient is aware to have assistance to step down off exam table with personnel. Patient voiced full comprehension of instructions. documented in this encounter Plan of Treatment Upcoming Encounters Date Type Department Care Team (Late st Contact Info) Description 09/21/2023 3:40 PM EDT Office Visit Sleep Disorders Ctr [facility] [address] [place] [phone] Patricia Guevara DO [address] [place] [address] 10/19/2023 1:30 PM EDT Office Visit Cardiology, [facility] [address] [place] [address] Kaushal Solis PA-C [address] [place] [address] 12/24/2023 1:00 PM EDT Imaging Radiology [facility]st [facility] [address] [place] [address] 01/10/2024 10:00 AM EST Laboratory Laboratory, [facility] [address] [place] [phone] [facility] [address] [facility] [place] [address] 01/14/2024 4:00 PM EST Office Visit Hematology/Oncology [facility] [address] [facility] [place] [phone] Fatimah Quintero CRNP [address] [facility] [place] [address] 01/17/2024 3:00 PM EST Office Visit General Internal Medicine [facility] [address] [facility] [place] [address] Raven Agrawal MD [address] [facility] [place] [address] Pending Results Name Type Priority Associated Diagnoses Date /Time SERUM IMMUNOFIXATION Lab Routine Abnormal echocardiogram 07/20/2023 2:59 PM EDT Scheduled Orders Name Type Priority Associated Diagnoses Orde r Schedule EKG COMPLETE (TRACING AND INTERP) EKG Routine Abnormal echocardiogram HTN, goal below 130/80 Ordered: 07/22/2023 MRI CARDIAC, ADULT W WO CONTRAST Medical Imaging Routine Abnormal echocardiogram Expected: 07/29/2023, Expires: 08/21/2024 KAPPA/LAMBDA LIGHT CHAINS, FREE WITH RATIO, RANDOM URINE Lab Routine Abnormal echocardiogram Expected: 07/22/2023, Expires: 07/21/2024 SERUM IMMUNOFIXATION Lab Routine Abnormal echocardiogram Expected: 07/22/2023, Expires: 07/21/2024 URINE IMMUNOFIXATION, BENCE MEADE PROTEIN, RANDOM URINE Lab Routine Abnormal echocardiogram Expected: 07/22/2023, Expires: 07/21/2024 EXTERNAL EKG 2 TO 7 DAYS Holter Routine Abnormal echocardiogram Hypertensive heart disease without congestive heart failure Prolonged QT interval Expected: 07/23/2023 (Approximate), Expires: 07/21/2024 Scheduled Procedures Name Priority [...] 03/27/2021, Additional history exists GFR 07/19/2024 07/20/2023, /05/2023, 05/06/2023, Additional history exists O2 ASSESSMENT COMPLETED [...] as of this encounter Results * MAGNESIUM (07/20/2023 2:59 PM EDT) Magnesium 2.0 1.5 - 2.6 mg/dL 07/22/2023 2:33 PM EDT [facility] [place] 56-02 Blood Venous blood specimen / Unknown Venipuncture / Unknown 07/20/2023 2:59 PM EDT 07/20/2023 2:59 PM EDT Kaushal LEON-C LAB BLOOD ORDERABLE S [facility]-[address] [place] [address] * TSH WITH FREE T4 IF INDICATED (07/20/2023 2:59 PM EDT) TSH 1.61 0.27 - 4.20 uIU/mL 07/22/2023 6:06 PM EDT [facility] Blood Venous blood specimen / Unknown Venipuncture / Unknown 07/20/2023 2:59 PM EDT 07/20/2023 2:59 PM EDT Kaushal Solis PA-C LAB BLOOD ORDERABLE S [facility] [address] [place] [address] documented in this encounter Visit Diagnoses Diagnosis Abnormal echocardiogram- Primary Nonspecific (abnormal) findings on radiological and other examination of other intrathoracic organs LVH (left ventricular hypertrophy) due to hypertensive disease, without heart failure HTN, goal below 130/80 Unspecified essential hypertension Hypertensive heart disease without congestive heart failure Unspecified hypertensive heart disease without heart failure Abnormal EKG Nonspecific abnormal electrocardiogram (ECG) (EKG) Prolonged QT interval Nonspecific abnormal electrocardiogram (ECG) (EKG) Immune thrombocytopenia (HCC) Other secondary thrombocytopenia documented in this encounter Care Teams Lining Machine Tender Relationship Specialty Start Date End Date Raven Agrawal MD [address] [place] [address] PCP - General Internal Medicine 12/27/17 documented as of this encounter"
--- OUTSIDE RECORDS SUMMARY | 2023-09-17 22:33 | External Medical Summary | Summary of Care ---
Author Name Unknown Organization [facility] Address [address] [place] [address] Phone [phone] Care Team Providers Care Label Coder Name Role Phone Raven Agrawal MD Primary Care Provider [phone] Encounter Details Date Type Department Care Team (Late st Contact Info) Description 05/05/2023 Telephone [facility] [address] [facility] [place] [address] Raven Agrawal MD [address] [facility] [place] [address] Allergies No known active allergiesdocumented as of this encounter (statuses as of 06/04/2023) Medications Medication Sig Dispensed Refills Start Date [...] neuropathy, without long-term current use of insulin ([facility]) TAKE 1 TABLET IN MORNING, 1.5 [...] as of this encounter (statuses as of 06/04/2023) Active Problems Problem Noted Date Diagnosed Date Type 2 diabetes mellitus wit h diabetic neuropathy, without long-term current use of insulin 10/06/2022 Mixed dyslipidemia 10/06/2022 COPD, group B, by GOLD 2017 classification 06/08 Overview: Per COPD GOLD Classification Granulomatous lung disease 06/27/2021 Dense breast tissue on mammogram 01/06/2019 Overview: 01/17; Tobacco use disorder 06/09/2018 Elevated hemoglobin 04/04/2018 Overview: 04/1932-JsYjql-ivi EPO, ferritin,Tsat, neg JAK2 mutn LVH (left ventricular hypert rophy) due to hypertensive disease, without heart failure 12/27/2017 Overview: 06/1789-hste-sz70%, no WMabn,mild A Scl,gr 2 DD HTN, [...] as of this encounter (statuses as of 06/04/2023) Resolved Problems Problem Noted Date Diagnosed Date [...] Real or Tata Meeks, RN, CCRC at [phone] [facility] RESEARCH OTHER*[id number] 04/12/2003 08/26/2009 Overview: Renamed Per Clinical Trials Billing Project. Pt is a participant in the [employer] (Consortium of Rheumatology Researchers of [place]) national data collection study. For further information please call Dr Alban Del Real or Tata Meeks, RN, CCRC at [phone] ABN CERVIX NEC-ANTEPART 11/24/200205/31 Elderly multigravida with an tepartum condition or complication 10/10/2002 06/22/2017 Arthritis, rheumatoid 2017 DIABETES-ANTEPARTUM 06/23/19 18 documented as of this encounter (statuses as of 06/04/2023) Immunizations Name Administration Dates Next Due COVID-19 [...] (Menactra) 03/13/2018 Pneumococcal Conjugate Vacci ne, 20-valent ([id number]) 04/06/2022 SARS-COV-2 (COVID-19) Vaccine Unspecified 2021 Seasonal [...] encounter Miscellaneous Notes * Telephone Encounter - Tammie Eli LPN - 05/05/2023 2:38 PM EST Left message for patient to call back. We received FMLA forms for her daughter, Annie. No release on file to speak with Annie or release information to her employer. Sent forms via [employer]. But need to speak with patient first since daughter is not listed on her chart. documented in this encounter Plan of Treatment Upcoming Encounters Date Type Department Care Team (Late st Contact Info) Description 07/21/2023 5:00 PM EDT Office Visit General Internal Medicine [address] [place] [address] Raven Agrawal MD [address] [place] [address] [place] [address] 07/22/2023 1:30 PM EDT [facility] [address] [place] [address] Kaushal Solis PA-C [address] [place] [address] 08/10/2023 1:00 PM EDT Office Visit Sleep Disorders Ctr [facility] [address] [place] [phone] Patricia Guevara DO [address] [place] [address] 10/13/2023 5:00 PM EDT Office Visit General Internal Medicine [facility] [address] [facility] [place] [address] Raven Agrawal MD [address] [facility] [place] [address] 12/24/2023 1:00 PM EDT Imaging Radiology [facility] 1st [facility] [address] [place] [address] Scheduled Procedures Name Priority Associated Diagnoses Date/Ti [...] 10/06/2023 10/05/2022, 03/02, 07/04/2019, Additional history exists Influenza Vaccine (FLU shot) [...] filedocumented as of this encounter Care Teams Label Coder Relationship Specialty Start Date End Date Raven Agrawal MD [address] [place] [address] PCP - General Internal Medicine 12/27/17 documented as of this encounter
--- OUTSIDE RECORDS SUMMARY | 2023-09-17 22:33 | External Medical Summary | Summary of Care ---
Author Name Unknown Organization [facility] Address [address] [facility] [place] [address] Phone [phone] Care Team Providers Care Factory Process Workers Name Role Phone Raven Agrawal MD Primary Care Provider [phone] Reason for Referral * Precert (Within 24 hrs (call dept; emergent)) - Pending Review Specialty Diagnoses / Procedures Referred By Adam washington Referred To Contact Radiology Diagnoses Mass of submandibular region Procedures CT NECK W CONTRAST Fatimah Quintero CRNP [address] [place] [address] Referral ID Status Reason Start Date Expiration Date V isits Requested Visits Authorized [id number] Pending Review 07/22/2023 999 999 Reason for Visit * Reason Onset Date Comments Test Results 07/21/2023 US HEAD AND NECK Encounter Details Date Type Department Care Team (Late st Contact Info) Description 07/21/2023 Telephone Hematology/Oncology [facility] [place] [address] [facility] [place] [address] Fatimah Quintero CRNP [address] [place] [address] Test Results (US HEAD AND NECK) Allergies No known active allergiesdocumented as of this encounter (statuses as of 07/22/2023) Medications Medication Sig Dispensed Refills Start Date [...] long-term current use of insulin ([facility]),Mixed dyslipidemia TAKE 1 TABLET BY MOUTH EVERY DAY 90 Tablet 2 3 Active Gabapentin 600 MG Oral Tablet (Neurontin)Indica tions:Type 2 diabetes mellitus with diabetic neuropathy, without long-term current use of insulin ([facility]) TAKE 1 TABLET IN MORNING, 1.5 [...] with single episode, in remission ([facility]),Type 2 diabetes mellitus with diabetic neuropathy, without long-term current use of insulin ([facility]),Cervical spinal stenosis,Cervical spondylosis TAKE 1 CAPSULE [...] goal of less than 7.0% ([facility]),HTN, goal below 130/80 Take 2 Tablets [...] as of this encounter (statuses as of 07/22/2023) Active Problems Problem Noted Date Diagnosed Date [...] use disorder 06/09/2018 Elevated hemoglobin 04/04/2018 Overview: 04/1902-ReBbrg-aqy EPO, ferritin,Tsat, neg JAK2 mutn LVH (left ventricular hypert rophy) due to hypertensive disease, without heart failure 12/27/2017 Overview: 06/1714-aopb-od80%, no WMabn,mild A Scl,gr 2 DD HTN, [...] as of this encounter (statuses as of 07/22/2023) Resolved Problems Problem Noted Date Diagnosed Date [...] Real or Tata Meeks, RN, CCRC at [phone] [facility] RES[facility]ARCH OTHER*[id number] 04/12/2003 08/26/2009 Overview: Renamed Per Clinical Trials Billing Project. Pt is a participant in the [facility] ([facility] Rheumatology Researchers of [facility]) national data collection study. For further information please call Dr Alban Del Real or Tata Meeks, RN, CCRC at [phone] ABN CERVIX NEC-ANTEPART 11/24/200205/31 Elderly multigravida with an tepartum condition or complication 10/10/2002 06/22/2017 Arthritis, rheumatoid 2017 DIABETES-ANTEPARTUM 06/23/19 18 documented as of this encounter (statuses as of 07/22/2023) Immunizations Name Administration Dates Next Due COVID-19 [...] (Menactra) 03/13/2018 Pneumococcal Conjugate Vacci ne, 20-valent ([id number]) 04/06/2022 Pneumococcal Polysaccharide PPV23 (Pneumovax) 03/16/2005 SARS-COV-2 [...] unexpected or indeterminate finding on Aura Hardy ([id number]) andasks that you review the following report. [...] MAHAD Bassett Client Service Rep Diagnostic Medicine [place] documented in this encounter Plan of Treatment Upcoming Encounters Date Type Department Care Team (Late st Contact Info) Description 09/21/2023 3:40 PM EDT Office Visit Sleep Disorders Ctr [facility] [address] [facility] [place] [phone] Patricia Guevara, [address] [place] [address] 12/24/2023 1:00 PM EDT Imaging Radiology [facility] 1st Floor, [place] [address] [place] [address] 01/10/2024 10:00 AM EST Laboratory Laboratory, [facility] [address] [facility] [place] [phone] [place] [facility] [address] [facility] [place] [address] 01/14/2024 4:00 PM EST Office Visit Hematology/Oncology [place] [address] [place] [phone] Fatimah Quintero CRNP [address] [place] [address] [place] [address] 01/17/2024 3:00 PM EST Office Visit General Internal Medicine [address] [place] [address] Raven Agrawal MD [address] [place], [place] [address] Scheduled Orders Name Type Priority Associated Diagnoses [...] neck documented in this encounter Care Teams Factory Process Workers Relationship Specialty Start Date End Date Raven Agrawal MD [address] [place] [address] PCP - General Internal Medicine 12/27/17 documented as of this encounter
--- OUTSIDE RECORDS SUMMARY | 2023-09-17 22:33 | External Medical Summary ---
Author Name Unknown Address Unknown Organization [id number]:[facility] [place] [address] [place] [address] Laboratory Report Ordering Provider Test Date Status YANDY YO 07/20/2023 14:59:07 Final Observation Date Value Abnormality Reference (Units ) Status Ferritin 07/20/2023 14:59:07 100 13-150 (ng /mL) Final Postmenopausal women have hi gher ferritin levels than pre-menopausal women. The above reference interval is based on pre-menopausal women. Performing Location [facility] - [address] [place] [address]
--- OUTSIDE RECORDS SUMMARY | 2023-09-17 22:33 | External Medical Summary ---
Author Name Unknown Address Unknown Organization [id number][facility] [place] [address] [place] [address] Laboratory Report Ordering Provider Test Date Status DUC KRISHNAMURTHY 07/20/2023 14:59:07 Final Observation Date Value Abnormality Reference (Units ) Status Vitamin B12 07/20/2023 14:59:07 053 193-7193 (pg/mL) Final Performing Location [facility] - [address] [place] [address]
--- OUTSIDE RECORDS SUMMARY | 2023-09-17 22:33 | External Medical Summary ---
Author Name Unknown Address Unknown Organization K09:[facility] [place] [address] Laboratory Report Ordering Provider Test Date Status YANDY YO 07/20/2023 14:59:07 Final Observation Date Value Abnormality Reference (Units ) Status WBC, Total 07/20/2023 14:59:07 3.98 Below low normal 4. 00-10.80 (K/uL) Final RBC 07/20/2023 14:59:07 5.78 3.85-5.15 (M/uL) Final Hemoglobin 07/20/2023 14:59:07 16.1 Above high normal 1 2.0-15.3 (g/dL) Final HCT 07/20/2023 14:59:07 48.7 Above high normal 36 .0-45.2 (%) Final MCV 07/20/2023 14:59:07 84.3 81.5-97.5 (fL) Final MCH 07/20/2023 14:59:07 27.9 27.0-34.0 (pg) Final MCHC 07/20/2023 14:59:07 33.1 32.0-36.0 (g/dL) Final RDW 07/20/2023 14:59:07 14.7 11.5-15.5 (%) Final Platelets 07/20/2023 14:59:07 208 140-400 (K /uL) Final MPV 07/20/2023 14:59:07 10.4 6.6-11.1 ( fL) Final Performing Location [place] [address]
--- OUTSIDE RECORDS SUMMARY | 2023-09-17 22:33 | External Medical Summary | Summary of Care ---
Author Name Unknown Organization [facility] Address [address] [place] [address] Phone [phone] Care Team Providers Care Security Guard Supervisor Name Role Phone Raven Agrawal MD Primary Care Provider [phone] Reason for Visit * Reason Comments Outpatient Testing Encounter Details Date Type Department Care Team (Latest Contact Info) Description 07/20/2023 3:00 PM EDT Laboratory Laboratory [facility] [place] [address] [place] [phone] [facility] [address] [place] [address] Type 2 diabetes mellitus with diabetic neuropathy, without long-term current use of insulin ([facility]); HTN, goal below 130/80; Mixed dyslipidemia; COPD, moderate ([facility]); Tobacco use disorder; MASHA on CPAP; Elevated hemoglobin (HCC); Still's disease of adult ([facility]); Rheumatoid arthritis involving multiple sites with positive rheumatoid factor ([facility]); Traumatic brain injury with loss of consciousness, subsequent encounter; Traumatic subarachnoid hemorrhage with loss of consciousness of 30 minutes or less, subsequent encounter; Pubic ramus fracture, unspecified laterality, with routine healing, subsequent encounter; Hospital discharge follow-up; Immune thrombocytopenia (HCC); Secondary polycythemia; Acute blood loss anemia Allergies No known active allergiesdocumented as of this encounter (statuses as of 07/20/2023) Medications Medication Sig Dispensed Refills Start Date [...] as needed for Pain, Mild. 05/16/2023 Active [employer] Verio In Vitro Strip (Glucose Blood)Indications: Type 2 diabetes mellitus with diabetic neuropathy, without long-term current use of insulin ([facility]) Use upto twice daily E11.9 100 Strip 11 05/19/2023 Active [employer] Verio w/Device KitIndications:Typ e 2 diabetes mellitus with diabetic neuropathy, without long-term current use of insulin ([facility]) Use upto twice daily E11.9 1 Kit 05/19/2023 Active World [employer] UltraSoft LancetsIndications :Type 2 diabetes mellitus with diabetic neuropathy, without long-term current use of insulin ([facility]) Use upto twice daily E11.9 100 Each 1 05/19/2023 Active Lisinopril 10 MG Oral Tablet (Prinivil)Indicati ons:LVH (left ventricular hypertrophy) due to hypertensive disease, without heart failure,Type 2 diabetes mellitus with hemoglobin A1c goal of less than 7.0% ([facility]),HTN, goal below 130/80 Take 1 [...] as of this encounter (statuses as of 07/20/2023) Active Problems Problem Noted Date Diagnosed Date Type 2 diabetes mellitus wit h diabetic neuropathy, without long-term current use of insulin 10/06/2022 Mixed dyslipidemia 10/06/2022 COPD, group B, by GOLD 2017 classification 06/08 Overview: Per COPD GOLD Classification Granulomatous lung disease 06/27/2021 Dense breast tissue on mammogram 01/06/2019 Overview: 01/17; Tobacco use disorder 06/09/2018 Elevated hemoglobin 04/04/2018 Overview: 04/1968-RdNaxt-iti EPO, ferritin,Tsat, neg JAK2 mutn LVH (left ventricular hypert rophy) due to hypertensive disease, without heart failure 12/27/2017 Overview: 06/1778-iekm-xk12%, no WMabn,mild A Scl,gr 2 DD HTN, [...] as of this encounter (statuses as of 07/20/2023) Resolved Problems Problem Noted Date Diagnosed Date [...] Project. Pt is a participant in the [facility] (Consortium of Rheumatology Researchers of [place]) national data collection study. For further information please call Dr Alban Del Real or Tata Meeks, RN, CCRC at [phone] [facility] RESEARCH OTHER*[id number] 04/12/2003 08/26/2009 Overview: Renamed Per Clinical Trials Billing Project. Pt is a participant in the [facility] (Consortium of Rheumatology Researchers of [place]) national data collection study. For further information please call Dr Alban Del Real or Tata Meeks, RN, CCRC at [phone] ABN CERVIX NEC-ANTEPART 11/24/200205/31 Elderly multigravida with an tepartum condition or complication 10/10/2002 06/22/2017 Arthritis, rheumatoid 2017 DIABETES-ANTEPARTUM 06/23/19 18 documented as of this encounter (statuses as of 07/20/2023) Immunizations Name Administration Dates Next Due COVID-19 [...] (Menactra) 03/13/2018 Pneumococcal Conjugate Vacci ne, 20-valent ([id number]) 04/06/2022 SARS-COV-2 (COVID-19) Vaccine Unspecified 2021 Seasonal [...] Team (Late st Contact Info) Description 07/21/2023 2:30 PM EDT Imaging Radiology [facility] [address] [facility] [place] [address] 07/21/2023 5:00 PM EDT [facility] [address] [place] [address] Raven Agrawal MD [address] [place] [address] 07/22/2023 1:30 PM EDT Office Visit Cardiology, [facility] [address] [facility] [place] [address] Kaushal Solis PA-C [address] [facility] [place] [address] 09/21/2023 3:40 PM EDT Office Visit Sleep Disorders Ctr [facility] [address] [facility] [place] [phone] Patricia Guevara DO [address] [facility] [place] [address] 10/13/2023 5:00 PM EDT Office Visit General Internal Medicine [facility] [address] [facility] [place] [address] Raven Agrawal MD [address] [place] [address] 12/24/2023 1:00 PM EDT Imaging Radiology [facility] 1st [facility] [address] [facility] [place] [address] 01/14/2024 4:00 PM EST Office Visit Hematology/Oncology [facility] [address] [facility] [place] [phone] Fatimah Quintero CRNP [address] [place] [address] Pending Results Name Type Priority Associated Diagnoses Date /Time BASIC METABOLIC PANEL Lab Routine Type 2 diabetes mellitus with diabetic neuropathy, without long-term current use of insulin ([facility]) HTN, goal below 130/80 07/20/2023 2:59 PM EDT LIPID PANEL WITH DIRECT LDL IF TG IS HIGH Lab Routine Mixed dyslipidemia 07/20/2023 2:59 PM EDT HEMOGLOBIN A1C Lab Routine Type 2 diabetes mellitus with diabetic neuropathy, without long-term current use of insulin ([facility]) 07/20/2023 2:59 PM EDT VITAMIN B12 Lab Routine Type 2 diabetes mellitus with diabetic neuropathy, without long-term current use of insulin ([facility]) 07/20/2023 2:59 PM EDT HEPATIC FUNCTION PANEL Lab Routine Traumatic brain injury with loss of consciousness, subsequent encounter Traumatic subarachnoid hemorrhage with loss of consciousness of 30 minutes or less, subsequent encounter Pubic ramus fracture, unspecified laterality, with routine healing, subsequent encounter Hospital discharge follow-up 07/20/2023 2:59 PM EDT IRON SCREEN, INCLUDING TIBC Lab STAT Immune thrombocytopenia (HCC) Secondary polycythemia Acute blood loss anemia 07/20/2023 2:59 PM EDT FERRITIN Lab STAT Immune thrombocytopenia (HCC) Secondary polycythemia Acute blood loss anemia 07/20/2023 2:59 PM EDT Scheduled Procedures Name Priority Associated [...] history exists GFR 05/12/2024 05/13/2023, 0 08/2023, 05/05/2023, Additional history exists O2 ASSESSMENT COMPLETED IN [...] Procedure Name Priority Date/Time Associated Diagnosis Comments DIFFERENTIAL, AUTOMATED STAT 07/20/2023 2:59 PM EDT Immune thrombocytopenia (HCC) Secondary polycythemia Acute blood loss anemia CBC STAT 07/20/2023 2:59 PM EDT Immune thrombocytopenia (HCC) Secondary polycythemia Acute blood loss anemia CBC STAT 07/20/2023 2:59 PM EDT Immune thrombocytopenia (HCC) Secondary polycythemia Acute blood loss anemia documented in this encounter Results * (ABNORMAL) DIFFERENTIAL, AUTOMATED (07/20/2023 2:59 PM EDT) WBC 3.98(L) 4.00 - 10.80 K/uL 07/20/2023 3:03 PM EDT [facility]ORY [place] 56-02 Neutrophils % 42.2 40.0 - 75.0 % 07/20/2023 3:03 PM EDT [facility] Lymphocytes % 36.7 18.0 - 42.0 % 07/20/2023 3:03 PM EDT [facility] Monocytes % 14.8(H) 1.0 - 11.0 % 07/20/2023 3:03 PM EDT [facility] Eosinophils % 6.0 0.0 - 6.0 % 07/20/2023 3:03 PM EDT [facility] Basophils % 0.3 0.0 - 2.0 % 07/20/2023 3:03 PM EDT [facility] Absolute Neutrophils 1.68(L) 1.80 - 7.70 K/uL 07/20/2023 3:03 PM EDT [facility] Absolute Lymphocytes 1.46 1.00 - 4.80 K/ul 07/20/2023 3:03 PM EDT [facility] Absolute Monocytes 0.59 0.00 - 1.10 K/uL 07/20/2023 3:03 PM EDT [facility] Absolute Eosinophils 0.24 0.00 - 0.70 K/uL 07/20/2023 3:03 PM EDT [facility] Absolute Basophils 0.01 0.00 - 0.20 K/uL 07/20/2023 3:03 PM EDT [facility] Blood Venous blood specimen / Unknown Venipuncture / Unknown 07/20/2023 2:59 PM EDT 07/20/2023 2:59 PM EDT Fatimah OCAMPO LAB BLOOD ORDER [facility] [address] [place] [address] * (ABNORMAL) CBC (07/20/2023 2:59 PM EDT) [facility] WBC 3.98(L) 4.00 - 10.80 K/uL 07/20/2023 3:03 PM EDT [facility] RBC 5.78 3.85 - 5.15 M/uL 07/20/2023 3:03 PM EDT [facility] HGB 16.1(H) 12.0 - 15.3 g/dL 07/20/2023 3:03 PM EDT [facility] 56 HCT 48.7(H) 36.0 - 45.2 % 07/20/2023 3:03 PM EDT [facility] 56 MCV 84.3 81.5 - 97.5 fL 07/20/2023 3:03 PM EDT [facility] 56 MCH 27.9 27.0 - 34.0 pg 07/20/2023 3:[address] MCHC 33.1 32.0 - 36.0 g/dL 07/20/2023 3:[address] RDW 14.7 11.5 - 15.5 % 07/20/2023 3:03 PM EDT [facility] 56 PLT 208 140 - 400 K/uL 07/20/2023 3:03 PM EDT [address] MPV 10.4 6.6 - 11.1 fL 07/20/2023 3:03 PM EDT [facility] 56 Blood Venous blood specimen / Unknown Venipuncture / Unknown 07/20/2023 2:59 PM EDT 07/20/2023 2:59 PM EDT Fatimah OCAMPO LAB BLOOD ORDER [facility] [address] [place], [place] [id number] documented in this encounter Visit Diagnoses Diagnosis Type 2 diabetes mellitus with diabetic neuropathy, without long-term current use of insulin (HCC) HTN, goal below 130/80 Unspecified essential hypertension Mixed dyslipidemia Mixed hyperlipidemia COPD, moderate (HCC) Chronic airway obstruction, not elsewhere classified Tobacco use disorder MASHA on CPAP Obstructive sleep apnea (adult) (pediatric) Elevated hemoglobin (HCC) Other hemoglobinopathies Still's disease of adult (HCC) Other rheumatoid arthritis with visceral or systemic involvement Rheumatoid arthritis involving multiple sites with positive rheumatoid factor (HCC) Traumatic brain injury with loss of consciousness, subsequent encounter Traumatic subarachnoid hemorrhage with loss of consciousness of 30 minutes or less, subsequent encounter Pubic ramus fracture, unspecified laterality, with routine healing, subsequent encounter Hospital discharge follow-up Other follow-up examination Immune thrombocytopenia (HCC) Other secondary thrombocytopenia Secondary polycythemia Polycythemia, secondary Acute blood loss anemia Acute posthemorrhagic anemia documented in this encounter Care Teams Security Guard Supervisor Relationship Specialty Start Date End Date Raven Agrawal MD [address] [facility] [place] [place] [address] PCP - General Internal Medicine 12/27/17 documented as of this encounter
--- OUTSIDE RECORDS SUMMARY | 2023-09-17 22:33 | External Medical Summary ---
Author Name Unknown Address Unknown Organization K09:[facility] [address] Laboratory Report Ordering Provider Test Date Status DUC KRISHNAMURTHY 07/20/2023 14:59:07 Final Observation Date Value Abnormality Reference (Units ) Status Albumin 07/20/2023 14:59:07 4.2 3.8-5.0 (g/dL) Final AST (Aspartate aminotransferase) 07/20/2023 14:59:07 28 10-35 (U/L) Final Alk Phos 07/20/2023 14:59:07 141 Above high normal 35-130 (U/L) Final ALT (Alanine aminotransferase) 07/20/2023 14:59:07 15 10-35 (U/L) Final Bilirubin, Total 07/20/2023 14:59:07 0.3 <=1.2 (mg/dL) Final Bilirubin, Direct 07/20/2023 14:59:07 <0.2 0.0-0.3 (mg/dL) Final Protein 07/20/2023 14:59:07 7.7 6.0-8.3 (g/dL) Final Performing Location [place] [address]
--- OUTSIDE RECORDS SUMMARY | 2023-09-17 22:33 | External Medical Summary ---
Author Name Unknown Address Unknown Organization K01:[facility] [place] [address] [place] [address] Laboratory Report Ordering Provider Test Date Status DUC KRISHNAMURTHY 07/20/2023 14:59:07 Final Observation Date Value Abnormality Reference (Units ) Status HbA1C 07/20/2023 14:59:07 6.7 Above high normal 4. 0-5.6 (%) Final The use of HbA1c to monitor glycemic status is based on normal hemoglobin and HbA composition. This test should not be used in patients with abnormal hemoglobin that affects the half life of the red blood cell or the in vivo glycation rates. Glucose, estimated average 07/20/2023 14:59:07 146 Above high normal <126 (mg/dL) Crispin miguel Performing Location [facility] [place] [address] [place] [address]
--- OUTSIDE RECORDS SUMMARY | 2023-09-17 22:33 | External Medical Summary ---
Author Name Unknown Address Unknown Organization K09:[facility] [place] [address] Laboratory Report Ordering Provider Test Date Status REINA CABRERAO 07/20/2023 14:59:07 Final Observation Date Value Abnormality Reference (Units ) Status Magnesium 07/20/2023 14:59:07 2.0 1.5-2.6 (m g/dL) Final Performing Location [facility] [place] [address]
--- OUTSIDE RECORDS SUMMARY | 2023-09-17 22:33 | External Medical Summary ---
Author Name Unknown Address Unknown Organization K01:[facility] [place] [address] [place] [address] Laboratory Report Ordering Provider Test Date Status YANDY YO 07/20/2023 14:59:07 Final Observation Date Value Abnormality Reference (Units ) Status Iron 07/20/2023 14:59:07 69 33-151 (ug /dL) Final Iron-binding capacity 07/20/2023 14:59:07 353 250-425 (ug/dL) Final Transferrin Sat % 07/20/2023 14:59:07 20 15 -55 (%) Final Performing Location LABORATORY [facility] - [address] [place] [address]
--- OUTSIDE RECORDS SUMMARY | 2023-09-17 22:33 | External Medical Summary ---
Author Name Unknown Address Unknown Organization K09:[facility] [place] [address] Laboratory Report Ordering Provider Test Date Status YANDY YO 07/20/2023 14:59:07 Final Observation Date Value Abnormality Reference (Units ) Status SYNC LEUKOCYTES IN BLOOD BY AUTOMATED COUNT 07/20/2023 14:59:07 3.98 Below low normal 4.00-10.80 (K/uL) Final Segs 07/20/2023 14:59:07 42.2 40.0-75.0 (%) Final Lymphs % 07/20/2023 14:59:07 36.7 18.0-42.0 (%) Final Monos 07/20/2023 14:59:07 14.8 Above high normal 1.0-11.0 (%) Final Eosinophils 07/20/2023 14:59:07 6.0 0.0-6.0 (%) Final Basos 07/20/2023 14:59:07 0.3 0.0-2.0 (%) Final Absolute Segs 07/20/2023 14:59:07 1.68 Below low normal 1.80-7.70 (K/uL) Final Lymphs, absolute 07/20/2023 14:59:07 1.46 1.00-4.80 (K/ul) Final Monos, Abs 07/20/2023 14:59:07 0.59 0.00-1.10 (K/uL) Final Eos, Abs 07/20/2023 14:59:07 0.24 0.00-0.70 (K/uL) Final Basos, Abs 07/20/2023 14:59:07 0.01 0.00-0.20 (K/uL) Final Performing Location [facility] [place] [address]
--- OUTSIDE RECORDS SUMMARY | 2023-09-17 22:33 | External Medical Summary ---
Author Name Unknown Address Unknown Organization K01:[facility] [place] [address] [place] [address] Laboratory Report Ordering Provider Test Date Status DUC KRISHNAMURTHY 07/20/2023 14:59:07 Final Observation Date Value Abnormality Reference (Units ) Status LDL, (direct) 07/20/2023 14:59:07 57 <=129 (mg/dL) Final LDL Cholesterol Reference Ra nges (mg/dL):
<70 Target level for high risk ASCVD patient
<100 Optimal for general population
100-129 Near optimal for general population
130-159 Borderline high
160-189 High
>=190 Very high Performing Location [facility] - [address] [place] [address]
--- OUTSIDE RECORDS SUMMARY | 2023-09-17 22:33 | External Medical Summary | Summary of Care ---
Author Name Unknown Organization [facility] Address [address] [place] [address] Phone [phone] Care Team Providers Care Mangle Press Catcher Name Role Phone Raven Agrawal MD Primary Care Provider [phone] Reason for Visit * Reason Comments Re-Check She has reported william t there was a growth that she found under her chin and her demolitionist ordered an ultra sound that she has taken today at [facility]. Encounter Details Date Type Department Care Team (Latest Contact Info) Description 07/21/2023 5:00 PM EDT Office Visit General Internal Medicine [facility] [address] [facility] [place] [address] Raven Agrawal MD [address] [facility] [address] Traumatic brain injury with loss of consciousness, subsequent encounter*; Traumatic subarachnoid hemorrhage with loss of consciousness of 30 minutes or less, subsequent encounter; Closed fracture of medial portion of left tibial plateau with routine healing, subsequent encounter; Pubic ramus fracture, unspecified laterality, with routine healing, subsequent encounter; Type 2 diabetes mellitus with diabetic neuropathy, without long-term current use of insulin (HCC); Mixed dyslipidemia; HTN, goal below 130/80; LVH (left ventricular hypertrophy) due to hypertensive disease, without heart failure; Immune thrombocytopenia (HCC); Elevated hemoglobin (HCC); Rheumatoid arthritis involving multiple sites with positive rheumatoid factor (HCC); MASHA on CPAP; COPD, moderate (HCC); Tobacco use Allergies No known active allergiesdocumented as of [...] 10/06/2022 amLODIPine Besylate 2.5 MG Oral Tablet (Norvasc)Indicati ons:HTN, goal below 130/80,LVH (left ventricular hypertrophy) due to hypertensive disease, without heart failure TAKE 1 TABLET BY MOUTH EVERY DAY 90 Tablet 4 07/24/2022 Active Rosuvastatin Calcium 10 MG Oral Tablet (Crestor)Indicati ons:Type 2 diabetes mellitus with diabetic neuropathy, without long-term current use of insulin (HCC),Mixed dyslipidemia TAKE 1 TABLET BY MOUTH EVERY DAY 90 Tablet 2 12/23/2022 Active Gabapentin 600 MG Oral Tablet (Neurontin)Indica [...] with single episode, in remission ([facility]),Type 2 diabetes mellitus with diabetic neuropathy, without long-term current use of insulin ([facility]),Cervical spinal stenosis,Cervical spondylosis TAKE 1 CAPSULE BY MOUTH EVERY MORNING 90 Capsule 1 05/03/2023 Active Nicotine 21 MG/24HR Transdermal Patch 24 Hour (Nicoderm CQ) Place 1 Patch topically on the skin daily. 05/16/2023 Active OneTouch Verio In Vitro Strip (Glucose Blood)Indications :Type 2 diabetes mellitus with diabetic neuropathy, without long-term current use of insulin ([facility]) Use upto twice daily E11.9 100 Strip 11 05/19/2023 Active Additional Information Patient not taking.Reported on 07/21/2023 OneTouch Verio w/Device KitIndications:Ty pe 2 diabetes mellitus with diabetic neuropathy, without long-term current use of insulin ([facility]) Use upto twice daily E11.9 1 Kit 05/19/2023 Active Additional Information Patient not taking.Reported on 07/21/2023 OneTouch UltraSoft LancetsIndication s:Type 2 diabetes mellitus with diabetic neuropathy, without long-term current use of insulin ([facility]) Use upto twice daily E11.9 100 Each 1 05/19/2023 Active Additional Information Patient not taking.Reported on 07/21/2023 Lisinopril 10 MG Oral Tablet (Prinivil)Indicat ions:LVH (left ventricular hypertrophy) due to hypertensive disease, without heart failure,Type 2 diabetes mellitus with hemoglobin A1c goal of less than 7.0% ([facility]),HTN, goal below 130/80 Take 1 [...] 180 Blister Dosing Unit 3 07/21/2023 Active Ipratropium-Albut rudolph 0.5-2.5 (3) MG/3ML Inhalation Solution (Duoneb)Indicatio ns:COPD exacerbation (HCC),Bronchitis, complicated Inhale 3 mL via nebulizer every 6 hours as needed for Wheezing. 120 mL 12/25/2020 4 Discontinue d(Medicatio n List Clean Up) Fluticasone-Umecl idin-Vilant 100-62.5-25 MCG/ACT Aerosol Powder Breath Activated (Trelegy Ellipta)Indicatio ns:Hospital discharge follow-up,COPD exacerbation (HCC),Rhinovirus infection,COPD, moderate (HCC) Inhale 1 Puff by mouth in the morning. Start 11/27/2022 and stop symbicort (cancel Rx anoro ellipta). 60 Blister Dosing Unit 5 11/27/2022 4 Discontinue d(Refill) oxyCODONE HCl 5 MG Oral Tablet (Oxy IR) Take 1 Tablet by mouth every 6 hours as needed for Pain, Mild. 05/16/2023 4 Discontinue d(Medicatio n List Clean Up) Hospital, Clinic, or Other [...] use disorder 06/09/2018 Elevated hemoglobin 04/04/2018 Overview: 04/1920-OdGbjg-kpc EPO, ferritin,Tsat, neg JAK2 mutn LVH (left ventricular hypert rophy) due to hypertensive disease, without heart failure 12/27/2017 Overview: 06/1717-szvp-fp81%, no WMabn,mild A Scl,gr 2 DD HTN, [...] Pt is a participant in the [facility] ([employer]ortium [employer] [place]) national data collection study. For further information please call Dr Alban Del Real or Tata Meeks, RN, CCRC at [phone] [facility] RESEARCH OTHER*[id number] 04/12/2003 08/26/2009 Overview: Renamed Per Clinical Trials Billing Project. Pt is a participant in the [facility] ([employer]ortium [employer] [place]) national data collection study. For further information please call Dr Alban Del Real or Tata Meeks, RN, CCRC at [phone] ABN CERVIX NEC-ANTEPART 11/24/200205/31 Elderly multigravida with [...] (Menactra) 03/13/2018 Pneumococcal Conjugate Vacci ne, 20-valent (Oonaarf80) 04/06/2022 SARS-COV-2 (COVID-19) Vaccine Unspecified 2021 Seasonal [...] Sign Reading Time Taken Comments Blood Pressure 100/68 07/21/2023 5:25 PM EDT Pulse 83 07/21/2023 5:25 PM EDT Temperature 36 C (96.8 F) 07/21/2023 5:25 PM EDT Respiratory Rate 16 07/21/2023 5:25 PM EDT Oxygen Saturation 95% 07/21/2023 5:25 PM EDT Inhaled Oxygen Concentration - - Weight 70 kg (154 lb 6.4 oz) 07/21/2023 5:25 PM EDT Height - - Body Mass Index 27.19 01/06/2023 11:00 AM EST documented in this encounter Progress Notes * Raven Agrawal MD - 07/21/2023 5:33 PM EDT SUBJECTIVE: Aura Hardy is a 57 year old female. Chief Complaint Patient presents with Re-Check She has reported that there was a growth that she found under her chin and her demolitionist orderedan ultra sound that she has taken today at [facility]. HPI: Patient presents today for 6 week f/u Wt Readings from Last 6 Encounters: 07/21/23 70 kg (154 lb 6.4 oz) 07/20/23 70 kg (154 lb 4.8 oz) 04/14/23 72.2 kg (159 lb 1.6 oz) 01/06/23 71.9 kg (158 lb 8.2 oz) 12/29/22 73.2 kg (161 lb 6.4 oz) 11/27/22 70.3 kg (155 lb) BP Readings from Last 6 Encounters: 07/21/23 100/68 07/20/23 114/70 05/19/23 104/60 04/14/23 156/86 01/06/23 124/6 12/29/22 124/68 PMH-Type 2 diabetes with chronic neuropathy, HTN with LVH, dyslipidemia, low hdl, moderate proximalright subclavian artery stenosis; depression. Stills disease, Rheumatoid arthritis And OA f/b Dr. Nguyen in [place]. History of ITP diagnosed by Dr. Sommers in 2016, saw Dr. Carey , now Freddy. Elevated hemoglobin attributed to smoking/sleep apnoea, nml ferritin; observation was recommended. Tobacco use disorder,COPD,OSAS on CPAP since 17/02- CWP. history of C diff colitis 07/16; normal colonoscopy 01/2018 -sig tics, rpt 10 yrs Cervical degenerative disc disease with neuroforaminal stenosis History of COVID infection January 2023 -echo-05/01/2021-severe LVH with EF greater than 70%, mild dilation of the left atrium, grade 1 diastolic dysfunction, mild aortic sclerosis aortic root borderline enlarged Seen 05/19/23--hosp f/u-Admitted to [facility] 04/24/2023, discharged 05/05/[facility] and discharged from there 05/17/2023. Final diagnosis traumatic brain injury with loss of consciousness, subarachnoid hemorrhage, multiple trauma left medial lateral tibial plateau fractures status post open reduction internal fixation and left proximal fibula fracture, multiple pelvic fractures, transverse process fracture, acute hypoxic respiratory failure. On 04/24/2023 states she fell down a [...] Echo in the hospital showed EF 60-65%, [id number]-pm-zinatntn MR and went to rehab and discharge [...] patch was given for tobacco use disorder. [facility] OT, PT, nursing was arranged and they will be coming today Discharge medications; aspirin 81 mg daily, amlodipine 2.5 mg daily duloxetine 60 mg daily, Trelegy, gabapentin 600 mg morning, 600 mg 1 and half tablet twice a day lunch and dinner, lisinopril 20 mgdaily this is a dose increase from her prior 10 mg; metoprolol XL 50 mg every day decreased from 100, Janumet mg with breakfast was decreased from previous twice a day, nicotine patches, oxycodone every 6 hours as needed, rosuvastatin 10 mg, zolpidem 10 mg HS. --but on med review she is still taking her old medications., blood pressure noted to be low, denies dizziness .. Last dose of oxycodone was on 05/15 at night -was advised to hold amlodipine and take it only if blood pressures greater than 120/80 - 07/21/2023---had ortho f/u 07/08/23- Begin weightbearing as tolerated. Begin range of motion as tolerated. Continue physical therapy for range of motion and strengthening. Follow-up 4 weeks. -currently using a cane for the last 2 weeks, working with physical therapy at [facility] on range of motion, states she was told if not better then they may have to manually stretch it under anesthesia. Has mild edema of the left leg and knee and has has hair growing on the morales now. -no headaches, no blurry vision or visual scintillations. She has been an avid reader and states some she is okay with reading but when she would writes she has to think. -was treated for UTI with Klebsiella 10 200,000 CFU with Bactrim, repeat culture 06/02/2023 was negative. Medications reviewed, she is unsure if the dose of lisinopril and metoprolol she is taking is a newonce they gave it at hospital discharge or the old when she had, she will message us, has appointment with Cardiology tomorrow. -a month ago she was getting very irritable and started smoking about 5-6 cigarettes a day, currently not using the patches. Strongly advised smoking cessation, she will let me know when she is readyto start the patches and we can send her prescription. Needs refill on her inhaler, Pulmonology appointment has not been scheduled yet. She sees Dr. Nguyen's soon, has been off the meloxicam since her injury, to check with trauma clinic before starting -saw Hematology yesterday, notes reviewed, ultrasound pending. Labs reviewed--non fasting Hemoglobin Results: Lab Results Component Value Date/Time HGB 16.1 (H) 07/20/2023 02:59 PM HGB 11.9 (L) 05/13/2023 06:23 AM HGB 10.5 (L) 05/06/2023 06:30 AM HGB 10.6 (A) 05/04/2023 12:00 AM HGB 16.5 (A) 04/20/2023 12:00 AM HGB 18.1 (A) 05/07/2022 12:00 AM HGB 17.3 (H) 05/23/2019 02:28 PM HGB 17.4 (H) 11/15/2018 03:04 PM HGB 16.8 (H) 03/31/2018 02:33 PM Hemoglobin AIC Results: Lab Results Component Value Date/Time HEMOGLOBIN A1C - [facility] 6.7 (H) 07/20/2023 02:59 PM HEMOGLOBIN A1C - [facility] 6.9 (H) 10/05/2022 03:58 PM HEMOGLOBIN A1C - [facility] 6.6 (H) 04/03/2022 02:17 PM HEMOGLOBIN A1C - [facility] 6.8 (H) 03/25/2020 12:28 PM HEMOGLOBIN A1C - [facility] 7.2 (H) 07/04/2019 12:34 PM HEMOGLOBIN A1C - [facility] 7.3 (H) 01/03/2019 01:13 PM NF labs Results for orders placed or performed in visit on 07/20/23 BASIC METABOLIC PANEL Result Value Ref Range BUN 13 6 - 20 mg/dL Creatinine 0.9 0.5 - 1.0 mg/dL Estimated Glomerular Filtration Rate 75 >=60 mL/min Sodium 138 135 - 146 mmol/L Potassium 4.3 3.5 - 5.1 mmol/L Chloride 100 98 - 107 mmol/L CO2 26 22 - 32 mmol/L Anion Gap 12 7 - 15 mmol/L Glucose 258 (H) 70 - 120 mg/dL Calcium 10.0 8.4 - 10.2 mg/dL LIPID PANEL WITH DIRECT LDL IF TG IS HIGH Result Value Ref Range Triglycerides 278 (H) <=174 mg/dL Cholesterol 126 <200 mg/dL HDL Cholesterol 31 (L) >49 mg/dL Non-HDL Cholesterol 95 <=159 mg/dL HEMOGLOBIN A1C Result Value Ref Range Hemoglobin A1C 6.7 (H) 4.0 - 5.6 % Estimated Average Glucose 146 (H) <126 mg/dL VITAMIN B12 Result Value Ref Range Vitamin B12 346 232 - 1,245 pg/mL HEPATIC FUNCTION PANEL Result Value Ref Range Albumin 4.2 3.8 - 5.0 g/dL AST 28 10 - 35 U/L Alkaline Phosphatase 141 (H) 35 - 130 U/L ALT 15 10 - 35 U/L Bilirubin, Total 0.3 <=1.2 mg/dL Bilirubin, Direct <0.2 0.0 - 0.3 mg/dL Protein 7.7 6.0 - 8.3 g/dL IRON SCREEN, INCLUDING TIBC Result Value Ref Range Iron 69 33 - 151 ug/dL Iron Binding Capacity 353 250 - 425 ug/dL Transferrin Saturation Percent 20 15 - 55 % FERRITIN Result Value Ref Range Ferritin 100 13 - 150 ng/mL CBC Result Value Ref Range WBC 3.98 (L) 4.00 - 10.80 K/uL RBC 5.78 3.85 - 5.15 M/uL HGB 16.1 (H) 12.0 - 15.3 g/dL HCT 48.7 (H) 36.0 - 45.2 % MCV 84.3 81.5 - 97.5 fL MCH 27.9 27.0 - 34.0 pg MCHC 33.1 32.0 - 36.0 g/dL RDW 14.7 11.5 - 15.5 % PLT 208 140 - 400 K/uL MPV 10.4 6.6 - 11.1 fL DIFFERENTIAL, AUTOMATED Result Value Ref Range WBC 3.98 (L) 4.00 - 10.80 K/uL Neutrophils % 42.2 40.0 - 75.0 % Lymphocytes % 36.7 18.0 - 42.0 % Monocytes % 14.8 (H) 1.0 - 11.0 % Eosinophils % 6.0 0.0 - 6.0 % Basophils % 0.3 0.0 - 2.0 % Absolute Neutrophils 1.68 (L) 1.80 - 7.70 K/uL Absolute Lymphocytes 1.46 1.00 - 4.80 K/ul Absolute Monocytes 0.59 0.00 - 1.10 K/uL Absolute Eosinophils 0.24 0.00 - 0.70 K/uL Absolute Basophils 0.01 0.00 - 0.20 K/uL LDL CHOLESTEROL (DIRECT MEASURE) Result Value Ref Range LDL Cholesterol (Direct Measure) 57 <=129 mg/dL *Note: Due to a large number of results and/or encounters for the requested time period, some results have not been displayed. A complete set of results can be found in Results Review. Patient Active Problem List Diagnosis Type 2 [...] current use of insulin (HCC) Mixed dyslipidemia Current Outpatient Medications Medication Sig Dispense Refill [...] up to two weeks.) 15 g 1 Zfruprxxext-Hieyirlem-Eseqwa 100-62.5-25 MCG/ACT Aerosol Powder Breath Activated (Trelegy [...] 1.5 TABLET BEFORE BEDTIME 360 Tablet 1 DULoxetine HCl 60 MG Oral Capsule Delayed Release Particles (Cymbalta) TAKE 1 CAPSULE BY MOUTH EVERY MORNING 90 Capsule 1 Lisinopril 10 MG Oral Tablet (Prinivil) [...] Tablet by mouth daily. 90 Tablet 3 amLODIPine Besylate 2.5 MG Oral Tablet (Norvasc) TAKE 1 TABLET BY MOUTH EVERY DAY 90 Tablet 4 Ketoconazole 2 % External Cream Apply to affected areas twice daily-nasolabial folds x2-4 wks, thenas needed (Patient not taking: Reported on 07/21/2023) 30 g 1 Nicotine 21 MG/24HR Transdermal Patch 24 [...] taking: Reported on 07/21/2023) 100 Each 1 Current Facility-Administered Medications Medication Dose Route Frequency Provider Last Rate Last Admin Albuterol Sulfate (Proventil) (2.5 MG/3ML) 0.083% inhalation solution 2.5 mg 2.5 mg Nebulizer PRN Raven Agrawal MD 2.5 mg at 01/06/23 1037 Review of patient's allergies indicates: No Known Allergies Immunization History Administered Date(s) Administered COVID-19 mRNA, [...] Vaccine (Menactra) 03/13/2018 Pneumococcal Conjugate Vaccine, 20-valent ([id number]) 04/06/2022 Pneumococcal Polysaccharide PPV23 (Pneumovax) 03/16/2005 SARS-COV-2 [...] 01/29/2009 Zoster Vaccine Recombinant (Shingrix) 01/17/2019, 05/08/2019 OBJECTIVE: BP 100/68 | Pulse 83 | Temp 36 C (96.8 F) (Tympanic) | Resp 16 | Wt 70 kg (154 lb 6.4 oz) | LMP10/10/2014 (Exact Date) | SpO2 95% | BMI 27.19 kg/m | BSA 1.77 m PHYSICAL EXAM: General: alert, healthy, no distress, well developed Neck: supple, no adenopathy, thyroid Not enlarged without nodularity Heart: regular rhythm and rate Lungs: lungs clear to auscultation Extremities: no edema Rt leg Left leg mild edema ,STS and around knee Abdomen: Soft, non-tender, normal bowel sounds, no masses or organomegaly ASSESSMENT/PLAN: Traumatic brain injury with loss of consciousness, subsequent encounter (Primary) Traumatic subarachnoid hemorrhage with loss of consciousness of 30 minutes or less, subsequent encounter Closed fracture of medial portion of left tibial plateau with routine healing, subsequent encounter Pubic ramus fracture, unspecified laterality, with routine healing, subsequent encounter Type 2 diabetes mellitus with diabetic neuropathy, without long-term current use of insulin (HCC) - HEMOGLOBIN A1C; Future; Expected date: 01/21/2024 - ALBUMIN / CREATININE RATIO, URINE; Future; Expected date: 01/21/2024 Mixed dyslipidemia - LIPID PANEL WITH DIRECT LDL IF TG IS HIGH; Future; Expected date: 01/21/2024 HTN, goal below 130/80 LVH (left ventricular hypertrophy) due to hypertensive disease, without heart failure Immune thrombocytopenia (HCC) Elevated hemoglobin (HCC) Rheumatoid arthritis involving multiple sites with positive rheumatoid factor (HCC) MASHA on CPAP COPD, moderate (HCC) - Cpwevirnfba-Pmgglzfcz-Qptoim 100-62.5-25 MCG/ACT Aerosol Powder Breath Activated (Trelegy Ellipta); Inhale 1 Puff by mouth in the morning. Start 11/27/2022 and stop symbicort (cancel Rx anoro ellipta). Tobacco use --see HPI regarding blood pressure medication, she will e-mail doses she is taking, keep cardiologyappointment tomorrow. Blood pressure is low to hold amlodipine; resume if home Bp >120/80. -continue to limit screen time, if concentration or has difficulty with writing words may need refer to Neurology, -she was able to do it right down list of some thinks he needs to do with regards toher medications. -call when ready to quit smoking and will send in prescription for patches. Continue follow-up with trauma surgeon and check with them before starting NSAIDs Follow Up: Return in about 6 months (around 01/14/2024), or if symptoms worsen or fail to improve, for Return with Physician, Fasting Labs 2-5 Days Before Next Visit. | For: Return with Physician, Fasting Labs 2-5 Days Before Next Visit | Check-out note: Cancel appt sep, jose lab appt 01/10/24 -reschedule appointment pulmonology (This note was completed using the dictation [...] with plan of care. Raven Agrawal MD 07/21/2023 documented in this encounter Nursing Notes * Rudy Hodge MED ASSIST - 07/21/2023 5:20 PM EDT The patient has been properly identified by confirmation of name and date of . Chief Complaint Patient presents with Re-Check She has reported that there was a growth that she found under her chin and her demolitionist orderedan ultra sound that she has taken today [facility]. documented in this encounter Plan of Treatment Upcoming Encounters Date Type Department Care Team (Late st Contact Info) Description 07/22/2023 1:30 PM EDT Office Visit Cardiology, [facility] [address] [place] [id number] Kaushal Solis PA-C [address] [place] [address] 09/21/2023 3:40 PM EDT Office Visit Sleep Disorders Ctr [facility] [address] [place] [phone] Patricia Guevara DO [address] [place] [address] 12/24/2023 1:00 PM EDT Imaging Radiology [facility] [facility] [address] [place] [address] 01/10/2024 10:00 AM EST [facility] [address] [place] [phone] [place] [address] [place] [address] 01/14/2024 4:00 PM EST Office Visit Hematology/Oncology [facility] [address] [facility] [place] [phone] Fatimah Quintero CRNP [address] [place] [address] 01/17/2024 3:00 PM EST Office Visit General Internal Medicine [facility] [address] [facility] [place] [address] Raven Agrawal MD [address] [facility] [place] [address] Scheduled Orders Name Type Priority Associated Diagnoses Orde r Schedule HEMOGLOBIN A1C Lab Routine Type 2 diabetes mellitus with diabetic neuropathy, without long-term current use of insulin (HCC) Expected: 01/21/2024 (Approximate), Expires: 07/20/2024 LIPID PANEL WITH DIRECT LDL IF TG IS HIGH Lab Routine Mixed dyslipidemia Expected: 01/21/2024, Expires: 07/20/2024 ALBUMIN / CREATININE RATIO, URINE Lab Routine Type 2 diabetes mellitus with diabetic neuropathy, without long-term current use of insulin (HCC) Expected: 01/21/2024 (Approximate), Expires: 07/20/2024 Scheduled Procedures Name Priority Associated Diagnoses Date/Ti [...] as of this encounter Visit Diagnoses Diagnosis Traumatic brain injury with loss of consciousness, subsequent encounter- Primary Traumatic subarachnoid hemorrhage with loss of consciousness of 30 minutes or less, subsequent encounter Closed fracture of medial portion of left tibial plateau with routine healing, subsequent encounter Pubic ramus fracture, unspecified laterality, with routine healing, subsequent encounter Type 2 diabetes mellitus with diabetic neuropathy, without long-term current use of insulin (HCC) Mixed dyslipidemia Mixed hyperlipidemia HTN, goal below 130/80 Unspecified essential hypertension LVH (left ventricular hypertrophy) due to hypertensive disease, without heart failure 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
--- OUTSIDE RECORDS SUMMARY | 2023-09-17 22:33 | External Medical Summary ---
Author Name Unknown Address Unknown Organization [id number]:[facility] [place] [address] [place] [address] Laboratory Report Ordering Provider Test Date Status DUC KRISHNAMURTHY 07/20/2023 14:59:07 Final Observation Date Value Abnormality Reference (Units ) Status Triglyceride 07/20/2023 14:59:07 278 Above high normal <=174 (mg/dL) Final Triglyceride Reference Range s (mg/dL):
<150 Acceptable
150-174 Borderline high
175-499 High
>=500 Very high Cholesterol 07/20/2023 14:59:07 126 <200 (mg /dL) Final Total Cholesterol Reference Ranges (mg/dL):
<200 Desirable
200-239 Borderline high
>=240 High HDL 07/20/2023 14:59:07 31 Below low normal >49 (mg/dL) Final HDL Cholesterol Reference Ra nges (mg/dL):
>=60 High (Desirable)
<50 Low (Undesirable) For Females
<40 Low (Undesirable) For Males NON-HDL CHOLESTEROL 07/20/2023 14:59:07 95 <=159 (mg/dL) Final Non-HDL Cholesterol Referenc e Range (mg/dL):
<100 Target level for high risk ASCVD patient
<130 Optimal for general population
130-159 Near optimal for general population
160-189 Borderline High
190-219 High
>=220 Very High Performing Location LABORATORY [facility] - [address] [place] [address]
--- OUTSIDE RECORDS SUMMARY | 2023-09-17 22:33 | External Medical Summary | Summary of Care ---
Author Name Unknown Organization [facility] Address [address] [facility] [place] [address] Phone [phone] Care Team Providers Care System Sales Consultant Name Role Phone Raven Agrawal MD Primary Care Provider [phone] Reason for Referral * Precert (Within 24 hrs (call dept; emergent)) - Pending Review Specialty Diagnoses / Procedures Referred By Adam washington Referred To Contact Radiology Diagnoses Mass of submandibular region Procedures CT NECK W CONTRAST Fatimah Quintero CRNP [address] [place] [address] Referral ID Status Reason Start Date Expiration Date V isits Requested Visits Authorized [id number] Pending Review 07/22/2023 999 999 Reason for Visit * Reason Onset Date Comments Test Results 07/21/2023 US HEAD AND NECK Encounter Details Date Type Department Care Team (Late st Contact Info) Description 07/21/2023 Telephone Hematology/Oncology [facility] [address] [facility] [place] [address] Fatimah Quintero CRNP [address] [place] [id number] Test Results (US HEAD [...] Additional Information Patient not taking.Reported on 07/22/2023 amLODIPine Besylate 2.5 MG Oral Tablet (Norvasc)Indicatio ns:HTN, goal below 130/80,LVH (left ventricular hypertrophy) due to hypertensive disease, without heart failure TAKE 1 TABLET BY MOUTH EVERY DAY 90 Tablet 4 07/24/2022 Active Additional Information Patient not taking.Reported on [...] use of insulin ([facility]) Use upto twice daily E11.9 100 Strip 11 05/19/2023 Active Additional Information Patient not taking.Reported on 07/21/2023 OneTouch Verio w/Device KitIndications:Typ e 2 diabetes mellitus with diabetic neuropathy, without long-term current use of insulin ([facility]) Use upto twice daily E11.9 1 Kit 05/19/2023 Active Additional Information Patient not taking.Reported on 07/21/2023 OneTouch UltraSoft LancetsIndications :Type 2 diabetes mellitus with diabetic neuropathy, without long-term current use of insulin ([facility]) Use upto twice daily E11.9 100 Each 1 05/19/2023 Active Additional Information Patient not taking.Reported on 07/21/2023 Lisinopril 10 MG Oral Tablet (Prinivil)Radhati ons:LVH (left ventricular hypertrophy) due to hypertensive disease, without heart failure,Type 2 diabetes mellitus with hemoglobin A1c goal of less than 7.0% ([facility]),HTN, goal below 130/80 Take [...] use disorder 06/09/2018 Elevated hemoglobin 04/04/2018 Overview: 04/1911-KuSlwj-bzu EPO, ferritin,Tsat, neg JAK2 mutn LVH (left ventricular hypert rophy) due to hypertensive disease, without heart failure 12/27/2017 Overview: 06/1700-ejsf-is58%, no WMabn,mild A Scl,gr 2 DD HTN, [...] or Tata Meeks, RN, CCRC at [phone] [facility] RESEARCH OTHER*[id number] 04/12/2003 08/26/2009 Overview: Renamed Per Clinical Trials Billing Project. Pt is a participant in the [facility] (Consortium of Rheumatology Researchers of [facility]) national data collection study. For further information please call Dr Alban Del Real or Tata Meeks, RN, CCRC at [phone] ABN CERVIX NEC-ANTEPART 11/24/200205/31 Elderly multigravida with [...] (Menactra) 03/13/2018 Pneumococcal Conjugate Vacci ne, 20-valent ([id number]) 04/06/2022 Pneumococcal Polysaccharide PPV23 (Pneumovax) 03/16/2005 SARS-COV-2 [...] unexpected or indeterminate finding on Aura Hardy ([id number]) andasks that you review the following report. [...] MAHAD Bassett Client Service Rep Diagnostic Medicine [place] documented in this encounter Plan of Treatment Upcoming Encounters Date Type Department Care Team (Late st Contact Info) Description 09/21/2023 3:40 PM EDT [facility] [address] [place] [phone] Patricia Guevara, [address] [place] [address] 12/24/2023 1:00 PM EDT Imaging Radiology [facility] 1st Floor, [place] [address] [place] [address] 01/10/2024 10:00 AM EST Laboratory Laboratory, [facility] [address] [place] [phone] [facility] [address] [facility] [place] [address] 01/14/2024 4:00 PM EST Office Visit Hematology/Oncology [address] [place] [phone] Fatimah Quintero CRNP [address] [place] [address] [place] [address] 01/17/2024 3:00 PM EST Office Visit General Internal Medicine [address] [place] [address] Raven Agrawal MD [address] [facility] [place], [place] [address] Scheduled Orders Name Type Priority Associated Diagnoses [...] neck documented in this encounter Care Teams System Sales Consultant Relationship Specialty Start Date End Date Raven Agrawal MD [address] [facility] [place] [address] PCP - General Internal Medicine 12/27/17 documented as of this encounter
--- OUTSIDE RECORDS SUMMARY | 2023-09-17 22:33 | External Medical Summary | Summary of Care ---
Author Name Unknown Organization [facility] Address [address] [place] [place] [address] Phone [phone] Care Team Providers Care Steam Shovel Operator Name Role Phone Raven Agrawal MD Primary Care Provider [phone] Reason for Visit * Reason Comments Outpatient Testing Encounter Details Date Type Department Care Team (Late st Contact Info) Description 06/02/2023 2:30 PM EDT Laboratory Laboratory, [facility] [address] [facility] [address] [facility] [place] [address] Suspected UTI Allergies No known active allergiesdocumented as of this encounter (statuses as of 06/02/2023) Medications Medication Sig Dispensed Refills Start Date [...] long-term current use of insulin ([facility]) TAKE 1 TABLET IN MORNING, 1.5 TABLET AT NOON AND 1.5 TABLET BEFORE BEDTIME 360 Tablet 1 04/14/2023 Active Ketoconazole 2 % External CreamIndications:S eborrheic dermatitis Apply to affected areas twice daily-nasolabial folds x2-4 wks, then as needed 30 g 1 04/14/2023 Active DULoxetine HCl 60 MG Oral Capsule Delayed Release Particles (Cymbalta)Indicati ons:Major depressive disorder with single episode, in remission ([facility]),Type 2 diabetes mellitus with diabetic neuropathy, without long-term current use of insulin ([facility]),Cervical spinal stenosis,Cervical spondylosis TAKE 1 CAPSULE BY MOUTH EVERY MORNING 90 Capsule 1 05/03/2023 Active Nicotine 21 MG/24HR Transdermal Patch 24 Hour (Nicoderm CQ) Place 1 Patch topically on the skin daily. 0 05/16/2023 Active oxyCODONE HCl 5 MG Oral Tablet (Oxy IR) Take 1 Tablet by mouth every 6 hours as needed for Pain, Mild. 0 05/16/2023 Active OneTouch Verio In Vitro Strip (Glucose Blood)Indications: Type 2 diabetes mellitus with diabetic neuropathy, without long-term current use of insulin ([facility]) Use upto twice daily E11.9 100 Strip 11 05/19/2023 Active BiomonitorTouch Verio w/Device KitIndications:Typ e 2 diabetes mellitus with diabetic neuropathy, without long-term current use of insulin ([facility]) Use upto twice daily E11.9 1 Kit 0 05/19/2023 Active BiomonitorTouch UltraSoft LancetsIndications :Type 2 diabetes mellitus with diabetic neuropathy, without long-term current use of insulin ([facility]) Use upto twice daily E11.9 100 Each 1 05/19/2023 Active Lisinopril 10 MG Oral Tablet (Prinivil)Indicati ons:LVH (left ventricular hypertrophy) due to hypertensive disease, without heart failure,Type 2 diabetes mellitus with hemoglobin A1c goal of less than 7.0% ([facility]),HTN, goal below 130/80 Take 1 Tablet by [...] needed for Pain, Moderate. 0 05/19/2023 Active Janumet XR 50-1000 MG Oral Tablet Extended Release 24 Hour (SITagliptin-metFO RMIN HCl ER)Indications:Typ e 2 diabetes mellitus with hemoglobin A1c goal of less than 7.0% (HCC),Type 2 diabetes mellitus with diabetic neuropathy, without long-term current use of insulin (HCC) Take 1 Tablet by mouth in the morning. 90 Tablet 3 06/02/2023 Active Hospital, Clinic, or Other Facility Administered Medication Ordered Dose Route Frequency Start Date End Date Status Albuterol Sulfate (Proventil) (2.5 MG/3ML) 0.083% inhalation solution 2.5 mgIndications:COPD, moderate (HCC) 2.5 mg NEBULIZER PRN 12/29/2022 12/29/2023 Active documented as of this encounter (statuses as of 06/02/2023) Active Problems Problem Noted Date Diagnosed Date Type 2 diabetes mellitus wit h diabetic neuropathy, without long-term current use of insulin 10/06/2022 Mixed dyslipidemia 10/06/2022 COPD, group B, by GOLD 2017 classification 06/08 Overview: Per COPD GOLD Classification Granulomatous lung disease 06/27/2021 Dense breast tissue on mammogram 01/06/2019 Overview: 01/17; Tobacco use disorder 06/09/2018 Elevated hemoglobin 04/04/2018 Overview: 04/1959-PqFjno-pvl EPO, ferritin,Tsat, neg JAK2 mutn LVH (left ventricular hypert rophy) due to hypertensive disease, without heart failure 12/27/2017 Overview: 06/1746-ubgq-up12%, no WMabn,mild A Scl,gr 2 DD HTN, [...] as of this encounter (statuses as of 06/02/2023) Resolved Problems Problem Noted Date Diagnosed Date [...] Real or Tata Meeks RN, CCRC at [phone] [facility] RESEARCH OTHER*[id number] 04/12/2003 08/26/2009 Overview: Renamed Per Clinical Trials Billing Project. Pt is a participant in the [employer] (Consortium of Rheumatology Researchers of [place]) national data collection study. For further information please call Dr Alban Del Real or Tata Meeks, RN, CCRC at [phone] ABN CERVIX NEC-ANTEPART 11/24/200205/31 Elderly multigravida with an tepartum condition or complication 10/10/2002 06/22/2017 Arthritis, rheumatoid 2017 DIABETES-ANTEPARTUM 06/23/19 18 documented as of this encounter (statuses as of 06/02/2023) Immunizations Name Administration Dates Next Due COVID-19 [...] (Menactra) 03/13/2018 Pneumococcal Conjugate Vacci ne, 20-valent ([id number]) 04/06/2022 SARS-COV-2 (COVID-19) Vaccine Unspecified 2021 Seasonal [...] PM EDT Office Visit General Internal Medicine [facility] [address] [place] [address] Raven Agrawal MD [address] [place] [address] 07/22/2023 1:30 PM EDT Office Visit Cardiology, [facility] [address] [facility] [place] [address] Kaushal Solis PA-C [address] [place] [address] 08/10/2023 1:00 PM EDT Office Visit Sleep Disorders Ctr [facility] [address] [facility] [place] [phone] Patricia Guevara DO [address] [place] [address] 10/13/2023 5:00 PM EDT Office Visit General Internal Medicine [facility] [address] [place] [address] Raven Agrawal MD [address] [place] [address] 12/24/2023 1:00 PM EDT Imaging Radiology [address], [place] [address] [place] [id number] Pending Results Name Type Priority Associated Diagnoses Date /Time URINALYSIS WITH MICROSCOPIC EXAM Lab Routine Suspected UTI 06/02/2023 2:41 PM EDT CULTURE, URINE, QUANTITATIVE Lab Routine Suspected UTI 06/02/2023 2:41 PM EDT Scheduled Procedures Name Priority Associated [...] as of this encounter Visit Diagnoses Diagnosis Suspected UTI documented in this encounter Care Teams Steam Shovel Operator Relationship Specialty Start Date End Date Raven Agrawal MD [address] [place] [address] PCP - General Internal Medicine 12/27/17 documented as of this encounter
--- OUTSIDE RECORDS SUMMARY | 2023-09-17 22:34 | External Medical Summary ---
Author Name Unknown Address Unknown Organization K01[place] [place] [address] [place] [address] Laboratory Report Ordering Provider Test Date Status JHONATANFRANCHESCA 06/02/2023 14:41:36 Final Observation Date Value Abnormality Reference (Units) Status Bacteria identified in Specimen by Culture 06/02/2023 14:41:36 No significant growth Final Test: Culture, Urine, Quanti tative
Specimen Source: Urine, Clean Catch
Specimen Type: Urine
Specimen Date: 06/02/2023 2:41 PM
Result Date: 06/03/2023 4:54 PM
Result Status: Final result
Resulting Lab: [facility]
[address]
[facility] [address]

CULTURE

No significant growth

null Performing Location [facility] [place] [place] [address] [place] [phone]
--- OUTSIDE RECORDS SUMMARY | 2023-09-17 22:34 | External Medical Summary | Summary of Care ---
Author Name Unknown Organization [facility] Address [address] [place] [address] Phone [phone] Care Team Providers Care Cafe Team Member Name Role Phone Raven Agrawal MD Primary Care Provider [phone] Reason for Referral * Evaluate & Treat - Unlimited Visits (Within 10 days (routine)) - Pending Review Specialty Diagnoses / Procedures Referred By Adam t Referred To Contact Orthopaedic Surgery / Orthopedics Diagnoses Traumatic brain injury with loss of consciousness, subsequent encounter Traumatic subarachnoid hemorrhage with loss of consciousness of 30 minutes or less, subsequent encounter Pubic ramus fracture, unspecified laterality, with routine healing, subsequent encounter Personal history of fall Closed fracture of medial portion of left tibial plateau with routine healing, subsequent encounter S/P ORIF (open reduction internal fixation) fracture Hospital discharge follow-up Raven Agrawal MD [address] [facility] [place] [address] Referral ID Status Reason Start Date Expiration Date Visits Requested Visits Authorized [id number] Pending Review Specialty Services Required 05/19/[phone] Question Answer Referral Priority Within 10 days (routine) Where should this appointment be scheduled? External What body part is the patient being seen for? Thigh/Knee - pelvis fracture What condition is the patient being seen for? Fracture including related infection Comments [facility] Cheryl Mason Reason for Visit * Reason Onset Date Comments Hospital Follow-Up Hospital Follow-Up 05/19/2023 Encounter Details Date Type Department Care Team (Latest Contact Info) Description 05/19/2023 10:40 AM EDT Office Visit General Internal Medicine [facility] [address] [place] [id number] Raven Agrawal MD [address] [place] [address], [place] [address] Hospital discharge follow-up*; Traumatic brain injury with loss of consciousness, subsequent encounter; Traumatic subarachnoid hemorrhage with loss of consciousness of 30 minutes or less, subsequent encounter; Pubic ramus fracture, unspecified laterality, with routine healing, subsequent encounter; Personal history of fall; Closed fracture of medial portion of left tibial plateau with routine healing, subsequent encounter; S/P ORIF (open reduction internal fixation) fracture; History of pneumonia; Acute respiratory failure with hypoxia ([facility]); Type 2 diabetes mellitus with diabetic neuropathy, without long-term current use of insulin ([facility]); MASHA on CPAP; COPD, group B, by GOLD 2017 classification ([facility]); LVH (left ventricular hypertrophy) due to hypertensive disease, without heart failure; Still's disease of adult ([facility]); Rheumatoid arthritis involving multiple sites with positive rheumatoid factor ([facility]); Dependent for wheelchair mobility; Closed fracture of sacrum with routine healing, unspecified fracture morphology, subsequent encounter; Tobacco use disorder; Type 2 diabetes mellitus with hemoglobin A1c goal of less than 7.0% ([facility]); HTN, goal below 130/80 Allergies No known active allergiesdocumented as of this encounter (statuses as of 06/01/2023) Medications Medication Sig Dispensed Refills Start Date [...] 0 07/04/2019 Active zolpidem (AMBIEN) 10 MG TabletIndications:P ersistent insomnia Take 1 Tablet by mouth at bedtime. DrMurphy 7 Tab 0 07/04/2019 Active Melatonin ER 1 MG TBCRIndications:Per sistent insomnia at bedtime 0 10/02/2019 Active Additional Information Patient taking differently: 3 mg Oral HS PRN, Sleep, at bedtime, Reported on 05/19/2023 Ipratropium-Albuter ol 0.5-2.5 (3) MG/3ML Inhalation Solution [...] 10/06/2022 amLODIPine Besylate 2.5 MG Oral Tablet (Norvasc)Indication s:HTN, goal below 130/80,LVH (left ventricular hypertrophy) due to hypertensive disease, without heart failure TAKE 1 TABLET BY MOUTH EVERY DAY 90 Tablet 4 07/24/2022 Active Fluticasone-Umeclid in-Vilant 100-62.5-25 MCG/ACT Aerosol Powder [...] 12/23/2022 Active Gabapentin 600 MG Oral Tablet (Neurontin)Indicati [...] Extended Release 24 Hour (SITagliptin-metFOR MIN HCl ER) Take 1 Tablet by mouth in the morning. 0 Active Nicotine 21 MG/24HR Transdermal Patch 24 Hour (Nicoderm CQ) Place 1 Patch topically on the skin daily. 0 05/16/2023 Active oxyCODONE HCl 5 MG Oral Tablet (Oxy IR) Take 1 Tablet by mouth every 6 hours as needed for Pain, Mild. 0 05/16/[address] Amie StreetTouch Verio In Vitro Strip (Glucose Blood)Indications:T ype 2 diabetes mellitus with diabetic neuropathy, without long-term current use of insulin ([facility]) Use upto twice daily E11.9 100 Strip 11 05/19/[address] Verio w/Device KitIndications:Type 2 diabetes mellitus with diabetic neuropathy, without long-term current use of insulin ([facility]) Use upto twice daily E11.9 1 Kit 0 05/19/[address] UltraSoft LancetsIndications: Type 2 diabetes mellitus with diabetic neuropathy, without long-term current use of insulin ([facility]) Use upto twice daily E11.9 100 Each 1 05/19/2023 Active Lisinopril 10 MG Oral Tablet (Prinivil)Indicatio ns:LVH (left ventricular hypertrophy) due to hypertensive disease, [...] 05/19/2023 Active Acetaminophen 500 MG Oral Tablet (Tylenol)Indication s:Pubic ramus fracture, unspecified laterality, with routine healing, subsequent encounter,Closed fracture of medial portion of left tibial plateau with routine healing, subsequent encounter,S/P ORIF (open reduction internal fixation) fracture,Hospital discharge follow-up,Closed fracture of sacrum with routine healing, unspecified fracture morphology, subsequent encounter Take 2 Tablets by mouth every 8 hours as needed for Pain, Moderate. 0 05/19/2023 Active Meloxicam 15 MG Tablet Take 1 Tablet by mouth every evening. 0 03/03/2019 05/19/19 24 Discontinu ed(Medicat ion/Dose Changed) Metoprolol Succinate ER 100 MG Oral Tablet Extended Release 24 Hour (toPROL XL)Indications:HTN, goal below 130/80 TAKE 1 TABLET BY MOUTH EVERY DAY 90 Tablet 3 05/22/2022 05/19/19 24 Discontinu ed(Medicat ion/Dose Changed) Janumet XR 50-1000 MG Oral Tablet Extended Release 24 Hour (SITagliptin-metFOR MIN HCl ER)Indications:Type 2 diabetes mellitus with hemoglobin A1c goal of less than 7.0% ([facility]),Type 2 diabetes mellitus with diabetic neuropathy, unspecified ([facility]) TAKE 1 TABLET BY MOUTH TWICE A DAY 180 Tablet 3 02/04/2023 05/19/19 24 Discontinu ed(Medicat ion/Dose Changed) Lisinopril 10 MG Oral Tablet (Prinivil)Indicatio ns:Type 2 diabetes mellitus with hemoglobin A1c goal of less than 7.0% ([facility]),LVH (left ventricular hypertrophy) due to hypertensive disease, without heart failure,HTN, goal below 130/80 TAKE 1 TABLET BY MOUTH EVERY DAY 90 Tablet 1 03/10/2023 05/19/19 24 Discontinu ed(Medicat ion/Dose Changed) Varenicline Tartrate 1 MG Oral TabletIndications:G ranulomatous lung disease ([facility]),COPD, group B, by GOLD 2017 classification ([facility]),Tobacco use disorder 0.5 mg Daily x 3 days, then twice daily x 4 days, then 1 mg twice daily -- restart week prior to quit date which she is to decide on 60 Tablet 3 04/14/2023 05/19/19 24 Discontinu ed(Medicat ion List Clean Up) Lisinopril 20 MG Oral Tablet (Prinivil) Take 1 Tablet by mouth in the morning. 0 05/16/2023 05/19/19 24 Discontinu ed(End of Procedure) Metoprolol Succinate ER 50 MG Oral Tablet Extended Release 24 Hour (toPROL XL) Take 1 Tablet by mouth in the morning. 0 05/19/19 24 Discontinu ed(Medicat ion/Dose Changed) Hospital, Clinic, or Other Facility Administered Medication Ordered Dose Route Frequency Start Date End Date Status Albuterol Sulfate (Proventil) (2.5 MG/3ML) 0.083% inhalation solution 2.5 mgIndications:COPD, moderate (HCC) 2.5 mg NEBULIZER PRN 12/29/2022 12/29/2023 Active documented as of this encounter (statuses as of 06/01/2023) Active Problems Problem Noted Date Diagnosed Date Type 2 diabetes mellitus wit h diabetic neuropathy, without long-term current use of insulin 10/06/2022 Mixed dyslipidemia 10/06/2022 COPD, group B, by GOLD 2017 classification 06/08 Overview: Per COPD GOLD Classification Granulomatous lung disease 06/27/2021 Dense breast tissue on mammogram 01/06/2019 Overview: 01/17; Tobacco use disorder 06/09/2018 Elevated hemoglobin 04/04/2018 Overview: 04/1989-ObCcgw-pkj EPO, ferritin,Tsat, neg JAK2 mutn LVH (left ventricular hypert rophy) due to hypertensive disease, without heart failure 12/27/2017 Overview: 06/1722-nwed-yf04%, no WMabn,mild A Scl,gr 2 DD HTN, [...] as of this encounter (statuses as of 06/01/2023) Resolved Problems Problem Noted Date Diagnosed Date [...] Real or Tata Meeks, RN, CCRC at [phone] [facility] OTHER*[id number] 04/12/2003 08/26/2009 Overview: Renamed Per Clinical Trials Billing Project. Pt is a participant in the [employer] (Consortium of Rheumatology Researchers of [place]) national data collection study. For further information please call Dr Alban Del Real or Tata Meeks, RN, CCRC at [phone] ABN CERVIX NEC-ANTEPART 11/24/200205/31 Elderly multigravida with an tepartum condition or complication 10/10/2002 06/22/2017 Arthritis, rheumatoid 2017 DIABETES-ANTEPARTUM 06/23/19 18 documented as of this encounter (statuses as of 06/01/2023) Immunizations Name Administration Dates Next Due COVID-19 [...] (Menactra) 03/13/2018 Pneumococcal Conjugate Vacci ne, 20-valent ([id number]) 04/06/2022 SARS-COV-2 (COVID-19) Vaccine Unspecified 2021 Seasonal [...] Sign Reading Time Taken Comments Blood Pressure 104/60 05/19/2023 11:57 AM EDT Pulse 73 05/19/2023 10:55 AM EDT Temperature 35.6 C (96.1 F) 05/19/2023 10:55 AM E DT Respiratory Rate - - Oxygen Saturation 93% 05/19/2023 10:55 AM EDT Inhaled Oxygen Concentration - - Weight - - Height - - Body Mass Index - - documented in this encounter Progress Notes * Raven Agrawal MD - 05/19/2023 11:01 AM EDT SUBJECTIVE: Aura Hardy is a 57 year old female. Chief Complaint Patient presents with Hospital Follow-Up Hospital Follow-Up HPI: Patient presents today for hospital follow-up appointment. Wt Readings from Last 6 Encounters: 04/14/23 72.2 kg (159 lb 1.6 oz) 01/06/23 71.9 kg (158 lb 8.2 oz) 12/29/22 73.2 kg (161 lb 6.4 oz) 11/27/22 70.3 kg (155 lb) 10/06/22 69.9 kg (154 lb 3.2 oz) 06/29/22 74.2 kg (163 lb 9.6 oz) BP Readings from Last 6 Encounters: 05/19/23 98/72 04/14/23 156/86 01/06/23 124/6 12/29/22 124/68 11/27/22 140/82 11/23/22 162/84 Patient presents today for hospital/rehab discharge follow-up appointment. Admitted to [facility] 04/24/2023, discharged 05/05/23 to [facility] and discharged from there 05/17/2023. Final diagnosis traumatic brain injury with loss of consciousness, subarachnoid hemorrhage, multiple trauma left medial lateral tibial plateau fractures status post open reduction internal fixation and left proximal fibula fracture, multiple pelvic fractures, transverse process fracture, acute hypoxic respiratory failure. Discharge summary from hospital not available, [facility] discharge reviewed. On 04/24/2023 states she fell down a [...] Echo in the hospital showed EF 60-65%, qkpp-wf-yspduiol MR and went to rehab and discharge [...] patch was given for tobacco use disorder. [facility] OT, PT, nursing was arranged and [...] .. Last dose of oxycodone was on 03/17 at night Component Latest Ref Rng 09/14/2022 04/20/2023 05/06/2023 05/13/2023 HGB 12.0 - 15.3 g/dL 18.3 (H) 16.5 ! (E) 10.5 (L) 11.9 (L) WBC 4.00 - 10.80 K/uL 5.82 7.64 6.67 RBC 3.85 - 5.15 M/uL 6.23 3.64 4.17 HCT 36.0 - 45.2 % 52.8 (H) 32.9 (L) 37.7 MCV 81.5 - 97.5 fL 84.8 90.4 90.4 MCH 27.0 - 34.0 pg 29.4 28.8 28.5 MCHC 32.0 - 36.0 g/dL 34.7 31.9 31.6 RDW 11.5 - 15.5 % 14.3 14.7 16.0 PLT 140 - 400 K/uL 151 377 371 MPV 6.6 - 11.1 fL 10.0 10.1 10.3 Component Latest Ref Rng 10/05/2022 05/06/2023 05/13/2023 BUN 6 - 20 mg/dL 7 8 11 Creatinine 0.5 - 1.0 mg/dL 0.8 0.8 0.9 Estimated Glomerular Filtration Rate >=60 mL/min 83 89 74 Sodium 135 - 146 mmol/L 140 143 142 Potassium 3.5 - 5.1 mmol/L 5.2 (H) 4.1 4.2 Chloride 98 - 107 mmol/L 103 106 103 CO2 22 - 32 mmol/L 26 28 27 Anion Gap 7 - 15 mmol/L 11 9 12 Glucose 70 - 120 mg/dL 144 (H) 107 184 (H) Calcium 8.4 - 10.2 mg/dL 9.3 9.3 9.2 Hemoglobin AIC Results: Lab Results Component Value [...] of less than 7.0% ([facility]) E11.9 Still's disease of adult ([facility]) 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 ([facility]) D69.3 Deviated nasal septum J34.2 Rheumatoid arthritis involving multiple sites with positive rheumatoid factor ([facility]) M05.79 LVH (left ventricular hypertrophy) due to hypertensive disease, without heart failure I11.9 HTN, goal below 130/80 I10 Screen for colon cancer Z12.11 History of Clostridium difficile infection Z86.19 MASHA on CPAP G47.33 Hepatic steatosis K76.0 Elevated hemoglobin ([facility]) D58.2 Tobacco use disorder F17.200 Dense breast tissue on mammogram R92.30 Granulomatous lung disease ([facility]) J84.10 COPD, group B, by GOLD 2017 classification ([facility]) J44.9 Type 2 diabetes mellitus with diabetic neuropathy, without long-term current use of insulin ([facility]) E11.40 Mixed dyslipidemia E78.2 Current Outpatient Medications Medication Sig Dispense Refill VITAMIN D 2000 UNIT PO TABS one tablet daily] KEVZARA 200 MG/1.14ML SOSY Injection every other week Multiple Vitamin (MULTI-DAY) Tablet Take 1 Tab by mouth daily. aspirin enteric coated 81 MG TBEC Take 1 Tab by mouth daily. St 09/16 100 Tab 3 Meloxicam 15 MG Tablet Take 1 Tablet by mouth every evening. zolpidem (AMBIEN) 10 MG Tablet Take 1 [...] BY MOUTH EVERY DAY 90 Tablet 4 Msxwlvomwou-Mjrvgevvv-Fnbzxp 100-62.5-25 MCG/ACT Aerosol Powder Breath Activated (Trelegy [...] MOUTH EVERY MORNING 90 Capsule 1 Lisinopril 20 MG Oral Tablet (Prinivil) Take 1 Tablet by mouth in the morning. Janumet XR 50-1000 MG Oral Tablet Extended Release 24 Hour (SITagliptin- metFORMIN HCl ER) Take 1 Tablet by mouth in the morning. Metoprolol Succinate ER 50 MG Oral Tablet Extended Release 24 Hour (toPROL XL) Take 1 Tablet by mouth in the morning. Nicotine 21 MG/24HR Transdermal Patch 24 Hour (Nicoderm CQ) Place 1 Patch topically on the skin daily. oxyCODONE HCl 5 MG Oral Tablet (Oxy IR) Take 1 Tablet by mouth every 6 hours as needed for Pain, Mild. traMADol (ULTRAM) 50 MG Tablet Take 1 Tablet by mouth daily as needed for Pain. 1 Tab 0 Current Facility-Administered Medications Medication Dose Route Frequency [...] Vaccine (Menactra) 03/13/2018 Pneumococcal Conjugate Vaccine, 20-valent ([id number]) 04/06/2022 Pneumococcal Polysaccharide PPV23 (Pneumovax) 03/16/2005 SARS-COV-2 [...] Vaccine Recombinant (Shingrix) 01/17/2019, 05/08/2019 OBJECTIVE: BP 98/72 | Pulse 73 | Temp 35.6 C (96.1 F) (Tympanic) | LMP 10/10/2014 (Exact Date) | SpO2 93% PHYSICAL EXAM: Rpt BP 104/60 General: alert, healthy, no distress, well developed Neck: supple, no adenopathy, thyroid Not enlarged without nodularity Heart: regular rhythm and rate,No murmurs. Lungs: lungs clear to auscultation Extremities: no edema Rt leg/bruise, bruise RT lat hip Left leg wrapped in rand wrap Abdomen: Soft, non-tender, normal bowel sounds, no masses or organomegaly ASSESSMENT/PLAN: Hospital discharge follow-up (Primary) - DISCH MED RECON CUR MED LIS - HEPATIC FUNCTION PANEL; Future; Expected date: 05/19/2023 - ORTHOPAEDICS REFERRAL OP - Acetaminophen 500 MG Oral Tablet (Tylenol); Take 2 Tablets by mouth every 8 hours as needed for Pain, Moderate. Traumatic brain injury with loss of consciousness, subsequent encounter - DISCH MED RECON CUR MED LIS - HEPATIC FUNCTION PANEL; Future; Expected date: 05/19/2023 - ORTHOPAEDICS REFERRAL OP Traumatic subarachnoid hemorrhage with loss of consciousness of 30 minutes or less, subsequent encounter - DISCH MED RECON CUR MED LIS - HEPATIC FUNCTION PANEL; Future; Expected date: 05/19/2023 - ORTHOPAEDICS REFERRAL OP Pubic ramus fracture, unspecified laterality, with routine healing, subsequent encounter - DISCH MED RECON CUR MED LIS - HEPATIC FUNCTION PANEL; Future; Expected date: 05/19/2023 - ORTHOPAEDICS REFERRAL OP - Acetaminophen 500 MG Oral Tablet (Tylenol); Take 2 Tablets by mouth every 8 hours as needed for Pain, Moderate. Personal history of fall - DISCH MED RECON CUR MED LIS - ORTHOPAEDICS REFERRAL OP Closed fracture of medial portion of left tibial plateau with routine healing, subsequent encounter - DISCH MED RECON CUR MED LIS - ORTHOPAEDICS REFERRAL OP - Acetaminophen 500 MG Oral Tablet (Tylenol); Take 2 Tablets by mouth every 8 hours as needed for Pain, Moderate. S/P ORIF (open reduction internal fixation) fracture - DISCH MED RECON CUR MED LIS - ORTHOPAEDICS REFERRAL OP - Acetaminophen 500 MG Oral Tablet (Tylenol); Take 2 Tablets by mouth every 8 hours as needed for Pain, Moderate. History of pneumonia Acute respiratory failure with hypoxia ([facility]) Resolved. Type 2 diabetes mellitus with diabetic neuropathy, without long-term current use of insulin ([facility]) - OneTouch Verio In Vitro Strip (Glucose Blood); Use upto twice daily E11.9 - OneTouch Verio w/Device Kit; Use upto twice daily E11.9 - OneTouch UltraSoft Lancets; Use upto twice daily E11.9 MASHA on CPAP COPD, group B, by GOLD 2017 classification ([facility]) LVH (left ventricular hypertrophy) due to hypertensive disease, without heart failure Still's disease of adult ([facility]) Rheumatoid arthritis involving multiple sites with positive rheumatoid factor ([facility]) Dependent for wheelchair mobility Closed fracture of sacrum with routine healing, unspecified fracture morphology, subsequent encounter - Acetaminophen 500 MG Oral Tablet (Tylenol); Take 2 Tablets by mouth every 8 hours as needed for Pain, Moderate. Tobacco use disorder Type 2 diabetes mellitus with hemoglobin A1c goal of less than 7.0% (HCC) HTN, goal below 130/80 ----blood pressure low advised to hold amlodipine, resume if home Bp >120/80. Send us log of home blood pressure readings as she did not follow change in lisinopril and metoprolol as noted in HPI. Start checking fasting blood sugars and before supper as dose was decreased prescription for glucometer and supplies sent Continue using nicotine patches, reschedule appointment with the Cardiology and pulmonology Follow Up: Return in about 6 weeks (around 06/30/2023), or if symptoms worsen or fail to improve, forReturn with Physician, Fasting Labs Soon. | For: Return with Physician, Fasting Labs Soon | Check-out note: -40 min appt--complex pt with xle injuries and problems. -[facility] appt and -[facility] (This note was completed using the dictation [...] with plan of care. Raven Agrawal MD 05/19/2023 documented in this encounter Nursing Notes * Fatimah Zambrano LPN - 05/19/2023 10:55 AM EDT Aura Hardy presents for hospital follow up. Medications & HM reviewed. Patient was discharged from [facility] on 05/16. documented in this encounter Plan of Treatment Upcoming Encounters Date Type Department Care Team (Late st Contact Info) Description 07/21/2023 5:00 PM EDT Office Visit General Internal Medicine Reena [place] [address] [facility] [place] [address] Raven Agrawal MD [address] [facility] [place] [address] 07/22/2023 1:30 PM EDT Office Visit Cardiology, [facility] [address] [place] [address] Kaushal Solis PA-C [address] [place] [address] 08/10/2023 1:00 PM EDT Office Visit [facility] Disorders [facility]tr [facility] [address] [place] [id number] Patricia Guevara DO [address] [place] [address] 10/13/2023 5:00 PM EDT Office Visit General Internal Medicine [facility] [address] [place] [address] Raven Agrawal MD [address] [place] [address] 12/24/2023 1:00 PM EDT [facility] [address] [place] [address] Scheduled Orders Name Type Priority Associated Diagnoses Orde r Schedule HEPATIC FUNCTION PANEL Lab Routine Traumatic brain injury with loss of consciousness, subsequent encounter Traumatic subarachnoid hemorrhage with loss of consciousness of 30 minutes or less, subsequent encounter Pubic ramus fracture, unspecified laterality, with routine healing, subsequent encounter Hospital discharge follow-up Expected: 05/19/2023 (Approximate), Expires: 05/18/2024 Scheduled Procedures Name Priority Associated Diagnoses Date/Ti me COLONOSCOPY FLEXIBLE PROXIMA L DIAGNOSTIC Recall Screening for malignant neoplasm of colon Scheduled Referrals Name Type Priority Associated Diagnoses Orde r Schedule ORTHOPAEDICS REFERRAL OP Referral Within 10 days (routine) Traumatic brain injury with loss of consciousness, subsequent encounter Traumatic subarachnoid hemorrhage with loss of consciousness of 30 minutes or less, subsequent encounter Pubic ramus fracture, unspecified laterality, with routine healing, subsequent encounter Personal history of fall Closed fracture of medial portion of left tibial plateau with routine healing, subsequent encounter S/P ORIF (open reduction internal fixation) fracture Hospital discharge follow-up Ordered: 05/19/2023 Health Maintenance Due Date Last Done Comments [...] as of this encounter Visit Diagnoses Diagnosis Hospital discharge follow-up- Primary Other follow-up examination Traumatic brain injury with loss of consciousness, subsequent encounter Traumatic subarachnoid hemorrhage with loss of consciousness of 30 minutes or less, subsequent encounter Pubic ramus fracture, unspecified laterality, with routine healing, subsequent encounter Personal history of fall Closed fracture of medial portion of left tibial plateau with routine healing, subsequent encounter S/P ORIF (open reduction internal fixation) fracture Other postprocedural status History of pneumonia Personal history of pneumonia (recurrent) Acute respiratory failure with hypoxia (HCC) Acute respiratory failure Type 2 diabetes mellitus with diabetic neuropathy, without long-term current use of insulin (HCC) MASHA on CPAP Obstructive sleep apnea (adult) (pediatric) COPD, group B, by GOLD 2017 classification (HCC) LVH (left ventricular hypertrophy) due to hypertensive disease, without heart failure Still's disease of adult (HCC) Other rheumatoid arthritis with visceral or systemic involvement Rheumatoid arthritis involving multiple sites with positive rheumatoid factor (HCC) Dependent for wheelchair mobility Closed fracture of sacrum with routine healing, unspecified fracture morphology, subsequent encounter Tobacco use disorder Type 2 diabetes mellitus with hemoglobin A1c goal of less than 7.0% ([facility]) HTN, goal below 130/80 Unspecified essential hypertension documented in this encounter Care Teams Cafe Team Member Relationship Specialty Start Date End Date Raven Agrawal MD [address] [place] [address] [place] [address] PCP - General Internal Medicine 12/27/17 documented as of this encounter"
--- OUTSIDE RECORDS SUMMARY | 2023-09-17 22:34 | External Medical Summary | Summary of Care ---
Author Name Unknown Organization [facility] Address [address] [place] [address] Phone [phone] Care Team Providers Care Final Canoe Inspector Name Role Phone Raven Agrawal MD Primary Care Provider [phone] Reason for Visit * Reason Onset Date Comments Med Request 06/02/2023 Encounter Details Date Type Department Care Team (Late st Contact Info) Description 06/02/2023 [facility] [address] [facility] [place] [address] Raven Agrawal MD [address] [facility] [place] [address] Med Request Allergies No known active allergiesdocumented as of [...] ersistent insomnia at bedtime 0 10/02/2019 Active Additional Information Patient taking differently: 3 mg Oral HS PRN, Sleep, at bedtime, Reported on 05/19/2023 Ipratropium-Albut rudolph 0.5-2.5 (3) MG/3ML Inhalation Solution [...] EVERY DAY 90 Tablet 4 07/24/2022 Active Fluticasone-Umecl idin-Vilant 100-62.5-25 MCG/ACT Aerosol Powder [...] with single episode, in remission ([facility]),Type 2 diabetes mellitus with diabetic neuropathy, without long-term current use of insulin ([facility]),Cervical spinal stenosis,Cervical spondylosis TAKE 1 CAPSULE BY MOUTH EVERY MORNING 90 Capsule 1 05/03/2023 Active Nicotine 21 MG/24HR Transdermal Patch 24 Hour (Nicoderm CQ) Place 1 Patch topically on the skin daily. 0 05/16/2023 Active oxyCODONE HCl 5 MG Oral Tablet (Oxy IR) Take 1 Tablet by mouth every 6 hours as needed for Pain, Mild. 0 05/16/2023 Active [employer] Verio In Vitro Strip (Glucose Blood)Indications :Type 2 diabetes mellitus with diabetic neuropathy, without long-term current use of insulin ([facility]) Use upto twice daily E11.9 100 Strip 11 05/19/2023 Active [employer] Verio w/Device KitIndications:Ty pe 2 diabetes mellitus with diabetic neuropathy, without long-term current use of insulin ([facility]) Use upto twice daily E11.9 1 Kit 0 05/19/2023 Active [employer] UltraSoft LancetsIndication s:Type 2 diabetes mellitus with diabetic neuropathy, without long-term current use of insulin ([facility]) Use upto twice daily E11.9 100 Each 1 05/19/2023 Active Lisinopril 10 MG Oral Tablet (Prinivil)Indicat ions:LVH (left ventricular hypertrophy) due to hypertensive disease, without heart failure,Type 2 diabetes mellitus with hemoglobin A1c goal of less than 7.0% ([facility]),HTN, goal below 130/80 Take 1 [...] long-term current use of insulin ([facility]) Take 1 Tablet by mouth in the morning. 90 Tablet 3 06/02/2023 Active Janumet XR 50-1000 MG Oral Tablet Extended Release 24 Hour (SITagliptin-metF ORMIN HCl ER) Take 1 Tablet by mouth in the morning. 0 4 Discontinue d(Refill) Hospital, Clinic, or Other [...] use disorder 06/09/2018 Elevated hemoglobin 04/04/2018 Overview: 04/1931-MdXbuz-sjp EPO, ferritin,Tsat, neg JAK2 mutn LVH (left ventricular hypert rophy) due to hypertensive disease, without heart failure 12/27/2017 Overview: 06/1717-sywi-ou62%, no WMabn,mild A Scl,gr 2 DD HTN, [...] please call Dr Alban Del Real or aTta Meeks, RN, CCRC at [phone] [employer] RESEARCH OTHER*[id number] 04/12/2003 08/26/2009 Overview: Renamed Per Clinical Trials Billing Project. Pt is a participant in the [employer] (Consortium of Rheumatology Researchers of [place]) national data collection study. For further information please call Dr Alban Del Real or Tata Meeks RN, CCRC at [phone] ABN CERVIX NEC-ANTEPART 11/24/200205/31 Elderly multigravida with [...] (Menactra) 03/13/2018 Pneumococcal Conjugate Vacci ne, 20-valent ([id number]) 04/06/2022 SARS-COV-2 (COVID-19) Vaccine Unspecified 2021 Seasonal [...] encounter Miscellaneous Notes * Telephone Encounter - Guido Palacio RN - 06/02/2023 12:58 PM EDT Rx pended, if appropriate. Provider to address: med request Reason for Call: Med Request Contact: [facility] Contact Type: Medication Outcome: See above Face to face time spent with Patient (minutes): 0 Total Time including non face to face (minutes): 10 Guido Palacio CHIEF COMPLIANCE OFFICER [facility] Primary Care Nurse Coordinator [facility] (Helping out) * Telephone Encounter - Fiordaliza Daniel CPhT - 06/02/2023 12:45 PM EDT Patient calling requesting the following medication below that is listed as "Historical". The following information was provided: Medication Name: Janumet XR 50-1000 MG Oral Tablet Extended Release 24 Hour (SITagliptin-metFORMIN HCl ER) Strength: 50-1000 MG Directions: Take 1 in the morning and 1 in the evening Preferred Quantity: 90 day supply Previous Prescriber: Preferred Pharmacy: [facility] [id number] [place] [address] Please review and approve if appropriate. Thank you, Sameera Daniel Conservation Officer [facility] (Formerly Telepharmacy) 06/02/2023,12:46 PM documented in this encounter Plan of Treatment Upcoming Encounters Date Type Department Care Team (Late st Contact Info) Description 06/02/2023 2:30 PM EDT [facility] [address] [facility] [place] [address] [address] [place] [facility] [address] [place] [address] 07/21/2023 5:00 PM EDT Office Visit General Internal Medicine [facility] [place] [address] [place] [address] Raven Agrawal MD [address] [facility] [place] [address] 07/22/2023 1:30 PM EDT [facility] [address] [place] [address] Kaushal Solis PA-C [address] [place] [address] 08/10/2023 1:00 PM EDT Office Visit Sleep Disorders Ctr [facility] [place] [address] [place] [address] Patricia Guevara DO [address] [place] [address] 10/13/2023 5:00 PM EDT Office Visit General Internal Medicine [facility] [place] [address] [place] [address] Raven Agrawal MD [address] [place] [address] 12/24/2023 1:00 PM EDT Imaging Radiology [address] [facility] [place] [address] Scheduled Procedures Name Priority Associated Diagnoses Date/Ti [...] 01/31/2013, Additional history exists Mammogram 12/18/2023 12/17/2022, 0 [...] hemoglobin A1c goal of less than 7.0% (HCC)- Primary Type 2 diabetes mellitus with diabetic neuropathy, without long-term current use of insulin (HCC) documented in this encounter Care Teams Final Canoe Inspector Relationship Specialty Start Date End Date Raven Agrawal MD [address] [place] [address] PCP - General Internal Medicine 12/27/17 documented as of this encounter
--- OUTSIDE RECORDS SUMMARY | 2023-09-17 22:34 | External Medical Summary ---
Author Name Unknown Address Unknown Organization [id number] [place] [address] [place] [address] Laboratory Report Ordering Provider Test Date Status FRANCHESCA ISRAEL 06/02/2023 14:41:36 Final Microscopic results may be i naccurate due to inadequate urine volume.
Observation Date Value Abnormality Reference (Units ) Status Color of Urine by Auto 06/02/2023 14:41:36 Yellow Light Yellow, Yellow, Dark Yellow Final Clarity, Urine 06/02/2023 14:41:36 Clear Clear Final Glucose [Mass/volume] in Urine by Automated test strip 06/02/2023 14:41:36 Negative Negative (mg/dL) Final Bilirubin.total [Presence] in Urine by Automated test strip 06/02/2023 14:41:36 Negative Negative Final Ketones [Mass/volume] in Urine by Automated test strip 06/02/2023 14:41:36 Negative Negative (mg/dL) Final Specific gravity, Urine 06/02/2023 14:41:36 1.015 1.003-1.030 Final Hemoglobin [Presence] in Urine by Automated test strip 06/02/2023 14:41:36 Moderate Abnormal Negative Final pH, Urine 06/02/2023 14:41:36 5.5 5.0-7.5 (Units) Final Protein [Mass/volume] in Urine by Automated test strip 06/02/2023 14:41:36 Negative Negative (mg/dL) Final Urobilinogen [Mass/volume] in Urine by Automated test strip 06/02/2023 14:41:36 0.2 0.2, 1.0 (mg/dL) Final Nitrite [Presence] in Urine by Automated test strip 06/02/2023 14:41:36 Negative Negative Final Leukocyte esterase [Presence] in Urine by Automated test strip 06/02/2023 14:41:36 Small Abnormal Negative Final RBC, Urine 06/02/2023 14:41:36 10-19 Abnormal 0-2 (/HPF) Final WBC, Urine 06/02/2023 14:41:36 3-5 Abnormal 0-2 (/HPF) Final Bacteria [#/area] in Urine sediment by Microscopy high power field 06/02/2023 14:41:36 0-25 0-25 (/HPF) Final Performing Location [facility] [place] [address] [place] [address]
--- NOTE | 2023-09-17 22:59 | Emergency Department Note ---
History of Present Illness General Chief complaint: Infection Stated complaint: CELLULITIS L FOOT, MEDS NOT HELPING, SWELLING Time Seen by Provider: 09/17/23 22:11 History of Present Illness Maximum Pain Intensity: 2 This 58-year-old diabetic presents ER complaining of worsening left foot cellulitis. Patient states the foot started get infected when she was in [place] over the weekend and started on Bactrim. Patient states the redness and swelling has gotten much worse. She complains of subjective fever and chills. Patient denies chest pain, dyspnea, cough, congestion. Home Medications Medication Instructions Recorded Confirmed Type gabapentin 600 mg tablet See Rx Instructions .Route .COMPLEX 05/30/18 05/29/23 History metoprolol succinate 100 mg 100 mg PO HS 05/30/18 05/29/23 History tablet,extended release 24 hr sitagliptin phos 50 mg-metformin 1 tab PO QAM 05/30/18 05/29/23 History ER 1,000 mg tablet,extend rel 24h mp (Janumet XR) zolpidem 10 mg tablet 10 mg PO HS 05/30/18 05/29/23 History amlodipine 2.5 mg tablet 2.5 mg PO DAILY 01/08/22 05/29/23 History duloxetine 60 mg capsule,delayed 60 mg PO QAM 01/08/22 05/29/23 History release lisinopril 10 mg tablet 10 mg PO DAILY 01/08/22 05/29/23 History meloxicam 15 mg tablet 15 mg PO DAILY 01/08/22 05/29/23 History rosuvastatin 10 mg tablet 10 mg PO DAILY 01/08/22 05/29/23 History sarilumab 200 mg/1.14 mL 200 mg subcut UD 01/08/22 05/29/23 History subcutaneous syringe (Kevzara) aspirin 81 mg tablet,delayed 81 mg PO DAILY 11/23/22 05/29/23 History release cholecalciferol (vitamin D3) 50 50 mcg PO DAILY 11/23/22 05/29/23 History mcg (2,000 unit) tablet (Vitamin D3) melatonin 10 mg tablet,extended 10 mg PO HS 11/23/22 05/29/23 History release ipratropium 0.5 mg-albuterol 3 mg 3 ml NEB Q4R PRN shortness of 11/24/22 05/29/23 Rx (2.5 mg base)/3 mL nebulization breath or wheezing #90 mL soln acetaminophen 500 mg tablet 1,000 mg PO Q6H PRN Pain 05/29/23 05/29/23 History (Tylenol Extra Strength) albuterol sulfate 2.5 mg/3 mL 2.5 mg inhalation DIRECTED PRN 05/29/23 05/29/23 History (0.083 %) solution for nebulization Shortness Of Breath Or Wheezing clobetasol 0.05 % topical cream 1 applic topical DIRECTED PRN 05/29/23 05/29/23 History .FLARE UPS fluticasone fur. 100 mcg-umeclid 1 inh inhalation BID 05/29/23 05/29/23 History 62.5 mcg-vilant 25 mcg inhalat.powder (Trelegy Ellipta) multivitamin 1 tab PO DAILY 05/29/23 05/29/23 History nicotine 21 mg/24 hr daily 1 patch topical DAILY 05/29/23 05/29/23 History transdermal patch oxycodone 5 mg tablet 5 mg PO Q6 PRN Pain 05/29/23 05/29/23 History tramadol 50 mg tablet 50 mg PO DAILY PRN Pain 05/29/23 05/29/23 History Allergies Allergy/AdvReac Type Severity Reaction Status Date / Time No Known Allergies Allergy Verified 05/29/23 15:59 Past Med/Surg History Problem List (Updated 09/18/23 @ 01:50 by Marnie Lynn PA-C) Cellulitis of left lower extremity (Acute) Multiple traumatic injuries within prior month History of subarachnoid hemorrhage UTI (urinary tract infection) (Acute) SIRS (systemic inflammatory response syndrome) (Acute) SOB (shortness of breath) (Acute) COPD exacerbation (Acute) Hypoxia (Acute) Rhinovirus infection (Acute) Pulmonary atelectasis Smoking (Chronic) Syncope Discharge planning issues DVT prophylaxis Status post section (Chronic) Hypertensive heart disease (Chronic) Hypertension (Chronic) COPD (chronic obstructive pulmonary disease) (Chronic) COPD exacerbation (Acute) Influenza A (Acute) Fever (Acute) Rheumatoid arthritis (Chronic) History of ITP (Chronic) Still's disease (Chronic) Type 2 diabetes mellitus (Chronic) Sleep apnea (Chronic) Hypoxia (Acute) Medical History (Updated 09/18/23 @ 01:50 by Marnie Lynn PA-C) Hypertension Family History Aunt Breast cancer Grandmother Breast cancer Father Heart disease Social History Smoking Status: Current every day smoker Tobacco Type: Cigarettes Second Hand Exposure: No; Do You Dip or Chew Tobacco: No (Quit last month 04/2023); Hx Alcohol Use: No Hx Substance Use: No Preferred Language: Setswana Communication Ability: Effective Livestock Producer Required: No Beliefs That Will Affect Care: None Current Living Situation: Spouse and Family Feels Safe at Home: Yes Assistive Devices: CPAP and Wheelchair Review of Systems A total of 10 systems reviewed and were otherwise negative Physical Exam Vital Signs Vital Signs - 24 hr 09/17/23 21:12 09/17/23 23:15 Temperature 36.2 C L Temperature Source Temporal Artery Scan Pulse Rate 88 Pulse Rate [Finger] 84 Respiratory Rate 20 17 Respiratory Depth Normal Blood Pressure 186/127 H Blood Pressure [Left Arm] 182/94 H Blood Pressure Mean 146 Blood Pressure Mean [Left Arm] 123 Pulse Oximetry 97 93 Oxygen Delivery Method Room Air Room Air Sepsis Recent Fever Within 48 Hours No Sepsis New/Unexplained Change in Mental Status No Sepsis Action Taken by Nursing No Action Required VITALS: Vitals are noted on the nurse's note and reviewed by myself. Vital signs stable. GENERAL: Pleasant female, in no acute distress, nondiaphoretic, well-developed well-nourished. SKIN: Capillary reflex less than 2 seconds. HEENT: Normocephalic. PERRLA. EOMI. Nares patent. Mucous membranes moist. Neck is supple without nuchal rigidity. HEART: Regular rate and rhythm LUNGS: Clear to auscultation bilaterally without wheezes, rales or rhonchi. No retractions or accessory muscle use. MUSCULOSKELETAL: Left forefoot erythematous and edematous concerning for cellulitis with edema tracking up to the ankle. Pedal pulses +2 equal present bilaterally. NEURO: Patient was alert and oriented to person place and time. No focal neurological deficits. Course Administered Medications Discontinued Medications Ceftriaxone Sodium (Rocephin) 2,000 mg in 50 mls @ 100 mls/hr IV NOW STA Stop: 09/17/23 22:55 Last Infusion: 09/17/23 23:50 Dose: Infused Documented By: Admin: 09/17/23 23:16 Dose: 100 mls/hr Documented By: ROXANNE Sodium Chloride (Nss) 1,000 mls @ 999 mls/hr IV .Q1H1M ONE Stop: 09/17/23 23:26 Last Infusion: 09/18/23 00:20 Dose: Infused Documented By: Admin: 09/17/23 23:17 Dose: 999 mls/hr Documented By: ROXANNE Nicotine (Nicotine 21 Mg/24 Hr Tdsy) 1 patch TD NOW STA Stop: 09/17/23 23:58 Last Admin: 09/18/23 00:09 Dose: 1 patch Documented By: ROXANNE Medical Decision Making Medical Records Attestation: I reviewed the patient's medical records. Home Medications Current Medication List: was personally reviewed by me Laboratory Data Attestation: I reviewed the patient's lab results. 09/17/23 21:54 09/17/23 21:54 Lab Results 09/17/23 09/17/23 Range/Units 21:54 23:06 WBC 5.40 (4.8-10.8) K/ul RBC 5.88 H (4.20-5.40) M/uL Hgb 16.4 H (12.0-16.0) g/dl Hct 48.3 H (37.0-47.0) % MCV 82.1 (80.0-100.0) fL MCH 27.9 (25.0-34.0) pg MCHC 34.0 (32.0-36.0) g/dL RDW Std Deviation 42.8 (36.4-46.3) fL RDW Coeff of Chidi 14.6 H (11.5-14.5) % Plt Count 161 (130-400) K/uL MPV 10.0 (9.4-12.4) fL Immature Gran % (Auto) 0.2 % Neut % (Auto) 53.8 % Lymph % (Auto) 29.4 % [place] % (Auto) 11.7 % Eos % (Auto) 4.3 % Baso % (Auto) 0.6 % Neut # (Auto) 2.91 (1.40-6.50) K/uL Lymph # (Auto) 1.59 (1.20-3.40) K/uL [place] # (Auto) 0.63 H (0.11-0.59) K/uL Eos # (Auto) 0.23 (0.00-0.50) K/uL Baso # (Auto) 0.03 (0.00-0.20) K/uL Immature Gran # (Auto) 0.01 (0.01-0.20) K/uL Sodium 139 (136-145) mmol/L Potassium 4.3 (3.5-5.1) mmol/L Chloride 106 (98-107) mmol/L Carbon Dioxide 26 (21-32) mmol/L Anion Gap 7 (3-11) BUN 8 (6-23) mg/dl Creatinine 0.86 (0.6-1.2) mg/dl Est Cr Clr Drug Dosing 69.0 ml/min Est GFR ( Amer) 86.9 ml/min Est GFR (Non-Af Amer) 75.0 ml/min BUN/Creatinine Ratio 9.3 L (10-20) Glucose 191 H (70-99(Fasting)) mg/dl Lactate 1.8 (0.4-2.0) mmol/L Calcium 9.5 (8.6-10.3) mg/dl Total Bilirubin 0.4 (0.2-1.0) mg/dl AST 28 (13-39) U/L ALT 18 (7-52) U/L Alkaline Phosphatase 128 H (34-104) U/L Total Protein 7.5 (6.0-8.3) gm/dl Albumin 4.4 (3.4-5.0) gm/dl Globulin 3.1 (2.5-4.0) gm/dl Albumin/Globulin Ratio 1.4 (0.9-2) Imaging Data Attestation: I personally reviewed and interpreted this imaging study as follows: [facility] Narrative Prior records reviewed and summarized as above. Triage Nursing notes reviewed. Additional history obtained from family. The patient's history was concerning for swelling and redness of the skin. Differential diagnosis: Etiologies such as cellulitis, abscess, MRSA infection, DVT, necrotizing fasciitis, dermatitis, drug eruption, as well as others were entertained.. Physical examination: The physical examination was consistent with cellulitis ER treatment provided: Rocephin was ordered On reassessment the patient felt better. Diagnostics interpreted by me: The labs Independently Interpreted by myself revealed no worrisome leukocytosis, hyperglycemia without DKA Imaging studies: Foot x-ray with no acute fracture dislocation or foreign body per my independent interpretation Ultrasound was reviewed and shows no DVT per my independent interpretation Consultation: A consultation was placed with the hospitalist. The case was discussed and diagnostics were reviewed. The patient was evaluated in the ER for further treatment. This appears to be isolated cellulitis. Symptoms have been getting worse despite being on antibiotics. I did opt to admit her. Medicine was consulted and the case was discussed. She will be admitted to the medical service. By the evaluation outlined above emergent etiologies such as abscess, necrotizing fasciitis, DVT, as well as others were deemed relatively unlikely. The pt informed about the findings as listed above. All questions were answered and pleased with the treatment. The chart was completed utilizing [employer] Speech voice recognition software. Grammatical errors, random word insertions, pronoun errors, and incomplete sentences are an occassional consequence of this system due to software limitations, ambient noise, and hardware issues. Any formal questions or concerns about the content, text, or information contained within the body of this dictation should be directly addressed to the physician assistant paralegal for clarification. Impression & Plan Cellulitis of left lower extremity Discharge Plan Visit Data Chief Complaint: Infection Stated Complaint: CELLULITIS L FOOT, MEDS NOT HELPING, SWELLING ED Provider: Roxanna Eastman ED Midlevel Provider: Marnie Lynn Discharge Problem: Cellulitis of left lower extremity Patient Disposition: Admitted As Inpatient Condition: Good Forms Stand Alone Forms: My [facility] Prescriptions Prescriptions: No Action gabapentin 600 mg Tablet See Rx Instructions .ROUTE .COMPLEX Rx Instructions: take 1 tablet in the morning and 1.5 tablets at noon and bedtime metoprolol succinate 100 mg Tablet Extended Release 24 Hr 100 mg PO HS zolpidem 10 mg Tablet 10 mg PO HS Janumet XR 50-1,000 mg Tablet, Er Multiphase 24 Hr 1 tab PO QAM Rx Instructions: DOSE STATED BY PATIENT meloxicam 15 mg tablet 15 mg PO DAILY lisinopril 10 mg tablet 10 mg PO DAILY rosuvastatin 10 mg tablet 10 mg PO DAILY amlodipine 2.5 mg tablet 2.5 mg PO DAILY Kevzara 200 mg/1.14 mL syringe 200 mg SUBCUT UD duloxetine 60 mg capsule,delayed release(DR/EC) 60 mg PO QAM aspirin 81 mg Tablet,Delayed Release (Dr/Ec) 81 mg PO DAILY cholecalciferol (vitamin D3) [Vitamin D3] 50 mcg (2,000 unit) Tablet 50 mcg PO DAILY melatonin 10 mg Tablet Extended Release 10 mg PO HS ipratropium-albuterol 0.5 mg-3 mg(2.5 mg base)/3 mL Solution For Nebulization 3 ml NEB Q4R PRN (Reason: shortness of breath or wheezing) Qty: 90 0RF multivitamin Tablet 1 tab PO DAILY tramadol 50 mg tablet 50 mg PO DAILY PRN (Reason: Pain) albuterol sulfate 2.5 mg /3 mL (0.083 %) Solution For Nebulization 2.5 mg INHALATION DIRECTED PRN (Reason: Shortness Of Breath Or Wheezing) clobetasol 0.05 % cream 1 applic TOPICAL DIRECTED PRN (Reason: .FLARE UPS) acetaminophen [Tylenol Extra Strength] 500 mg Tablet 1,000 mg PO Q6H PRN (Reason: Pain) Trelegy Ellipta 100-62.5-25 mcg blister with device 1 inh INHALATION BID nicotine 21 mg/24 hr patch 24 hour 1 patch topical DAILY oxycodone 5 mg tablet 5 mg PO Q6 PRN (Reason: Pain) Referrals Referrals: Raven Agrawal MD [Primary Care Provider] -
[2023-09-17] MEDS: cefTRIAXone SODIUM 2,000 MG/50 ML BAG IV STA (23:16)
[2023-09-17] MEDS: SODIUM CHLORIDE 0.9% 1,000 ML IV ONE (23:17)
[2023-09-18] MEDS: NICOTINE 21 MG/24 HR TDSY TD STA (00:09)
--- NOTE | 2023-09-18 02:53 | Ultrasound Report ---
Exam(s): US VENOUS LEFT LOWER EXTREMITY EXAM: US Duplex Left Lower Extremity Veins CLINICAL HISTORY: Reason for exam: Eval for DVT. TECHNIQUE: Real-time duplex ultrasound scan of the left lower extremity veins integrating B-mode two-dimensional vascular structure, Doppler spectral analysis, color flow Doppler imaging and compression. COMPARISON: No relevant prior studies available. FINDINGS: Deep veins: Unremarkable. No DVT in the visualized common femoral, femoral, proximal deep femoral or popliteal veins. The veins demonstrate normal color flow, are normally compressible, with normal phasic flow and/or augmentation response. Superficial veins: No thrombus. Soft tissues: No acute findings. No popliteal cyst. IMPRESSION: No evidence of DVT in the left lower extremity. Electronically signed by: Leobardo Elder MD 09/18/23 02:52 AM
--- NOTE | 2023-09-18 03:45 | History & Physical Report ---
Date of Service September 18, 2023 Assessment & Plan (1) Cellulitis of left foot: Plan: 58-year-old female with past medical history significant for type 2 diabetes, mixed dyslipidemia, granulomatous lung disease, COPD, deviated nasal septum, obstructive sleep apnea on CPAP, traumatic subarachnoid hemorrhage with loss of consciousness, left ventricular hypertrophy, hypertension, hepatic steatosis, elevated hemoglobin, immune thrombocytopenia, stills disease of adult, rheumatoid arthritis involving multiple sites with positive rheumatoid factor, history of C. difficile, tobacco use disorder, comes because of left foot cellulitis and failed outpatient treatment with Bactrim. Patient was recently in [place]. Patient noticed left foot infection while she was in [place] last weekend. Came back on Wednesday. She went to [facility] on Wednesday and she was prescribed Bactrim which she started Wednesday night. After 3 days of antibiotics when she checked her left foot today it seems to be getting worse. She tried to go to her PCP office but because of IT outrage she and didnot get appointment. Tried to go [facility] but they told her because of IT outrage they could not see her today and advised to come tomorrow and then she decided to come to ER. Denies any fevers. Feels pressure and tightness in left foot but no pain. Was able to ambulate and put weight on the leg. Hemodynamics are okay. Denies any headache. No blurred vision. No runny nose or sore throat. No cough. Appetite is okay. No chest pain or shortness of breath. No nausea. No abdominal pain. Normal bowel and bladder movements. cellulitis of left foot failed outpatient treatment with Bactrim no DVT on Doppler on immunosuppressive medications received Rocephin in the ER will continue with IV Vanco and Zosyn also check uric acid levels monitor the response type 2 diabetes hold home p.o. medications sliding scale will check HbA1c levels will monitor COPD continue home inhalers and nebs as needed obstructive sleep apnea CPAP nightly rheumatoid arthritis stills disease of adult on Kevzara hypertension on lisinopril on metoprolol succinate we will monitor hyperlipidemia on statin history of C. difficile will place on probiotics while getting antibiotics DVT prophylaxis Lovenox disposition medical floor full code History of Present Illness Chief Complaint: left foot cellulitis Primary Care Provider: Raven Agrawal MD 58-year-old female with past medical history significant for type 2 diabetes, mixed dyslipidemia, granulomatous lung disease, COPD, deviated nasal septum, obstructive sleep apnea on CPAP, traumatic subarachnoid hemorrhage with loss of consciousness, left ventricular hypertrophy, hypertension, hepatic steatosis, elevated hemoglobin, immune thrombocytopenia, stills disease of adult, rheumatoid arthritis involving multiple sites with positive rheumatoid factor, history of C. difficile, tobacco use disorder, comes because of left foot cellulitis and failed outpatient treatment with Bactrim. Patient was recently in [place]. Patient noticed left foot infection while she was in [place] last weekend. Came back on Wednesday. She went to [facility] on Wednesday and she was prescribed Bactrim which she started Wednesday night. After 3 days of antibiotics when she checked her left foot today it seems to be getting worse. She tried to go to her PCP office but because of IT outrage she and didnot get appointment. Tried to go [facility] but they told her because of IT outrage they could not see her today and advised to come tomorrow and then she decided to come to ER. Denies any fevers. Feels pressure and tightness in left foot but no pain. Was able to ambulate and put weight on the leg. Hemodynamics are okay. Denies any headache. No blurred vision. No runny nose or sore throat. No cough. Appetite is okay. No chest pain or shortness of breath. No nausea. No abdominal pain. Normal bowel and bladder movements. Past medical history. As mentioned above past surgical history. . Colonoscopy. Lumbar cervical spine injection. ligation of oviduct. Social history. . Smoked 1 pack a day for 36 years. Alcohol rarely. No drug use. Family history. Daughter has asthma. Aunt had breast cancer. Maternal grandmother had breast cancer. Father had heart disorder. Allergies Allergy/AdvReac Type Severity Reaction Status Date / Time No Known Allergies Allergy Verified 09/18/23 02:47 Home Medications Medication Instructions Recorded Confirmed Type gabapentin 600 mg tablet See Rx Instructions .Route .COMPLEX 05/30/18 09/18/23 History zolpidem 10 mg tablet 10 mg PO HS 05/30/18 09/18/23 History duloxetine 60 mg capsule,delayed 60 mg PO QAM 01/08/22 09/18/23 History release meloxicam 15 mg tablet 15 mg PO DAILY 01/08/22 09/18/23 History rosuvastatin 10 mg tablet 10 mg PO DAILY 01/08/22 09/18/23 History sarilumab 200 mg/1.14 mL 200 mg subcut UD 01/08/22 09/18/23 History subcutaneous syringe (Kevzara) aspirin 81 mg tablet,delayed 81 mg PO DAILY 11/23/22 09/18/23 History release cholecalciferol (vitamin D3) 50 50 mcg PO DAILY 11/23/22 09/18/23 History mcg (2,000 unit) tablet (Vitamin D3) melatonin 10 mg tablet,extended 10 mg PO HS PRN Sleep 11/23/22 09/18/23 History release ipratropium 0.5 mg-albuterol 3 mg 3 ml NEB Q4R PRN shortness of 11/24/22 09/18/23 Rx (2.5 mg base)/3 mL nebulization breath or wheezing #90 mL soln acetaminophen 500 mg tablet 1,000 mg PO Q6H PRN Pain 05/29/23 09/18/23 History (Tylenol Extra Strength) clobetasol 0.05 % topical cream 1 applic topical DIRECTED PRN 05/29/23 09/18/23 History .FLARE UPS fluticasone fur. 100 mcg-umeclid 1 inh inhalation BID 05/29/23 09/18/23 History 62.5 mcg-vilant 25 mcg inhalat.powder (Trelegy Ellipta) multivitamin 1 tab PO DAILY 05/29/23 09/18/23 History nicotine 21 mg/24 hr daily 1 patch topical DAILY 05/29/23 09/18/23 History transdermal patch tramadol 50 mg tablet 50 mg PO DAILY PRN Pain 05/29/23 09/18/23 History linagliptin 5 mg-metformin ER 1 tab PO DAILY 09/18/23 09/18/23 History 1,000 mg tablet,extended release 24 hr (Jentadueto XR) lisinopril 20 mg tablet 20 mg PO QPM 09/18/23 09/18/23 History metoprolol succinate 50 mg 50 mg PO QAM 09/18/23 09/18/23 History tablet,extended release 24 hr sulfamethoxazole 800 1 tab PO Q12 09/18/23 09/18/23 History mg-trimethoprim 160 mg tablet Past Med/Surg History Problem List (Updated 09/18/23 @ 03:42 by Renato Tran MD) Cellulitis of left foot Cellulitis of left lower extremity (Acute) Multiple traumatic injuries within prior month History of subarachnoid hemorrhage UTI (urinary tract infection) (Acute) SIRS (systemic inflammatory response syndrome) (Acute) SOB (shortness of breath) (Acute) COPD exacerbation (Acute) Hypoxia (Acute) Rhinovirus infection (Acute) Pulmonary atelectasis Smoking (Chronic) Syncope Discharge planning issues DVT prophylaxis Status post section (Chronic) Hypertensive heart disease (Chronic) Hypertension (Chronic) COPD (chronic obstructive pulmonary disease) (Chronic) COPD exacerbation (Acute) Influenza A (Acute) Fever (Acute) Rheumatoid arthritis (Chronic) History of ITP (Chronic) Still's disease (Chronic) Type 2 diabetes mellitus (Chronic) Sleep apnea (Chronic) Hypoxia (Acute) Medical History (Updated 09/18/23 @ 03:42 by Renato Tran MD) Hypertension Family History Aunt Breast cancer Grandmother Breast cancer Father Heart disease Social History Smoking Status: Current every day smoker Tobacco Type: Cigarettes Cigarettes Per Day: 1 pack per day; Second Hand Exposure: Yes; Do You Dip or Chew Tobacco: Yes; Hx Alcohol Use: No Hx Substance Use: No Preferred Language: Setswana Communication Ability: Effective Professor Of Environmental Science Required: No Beliefs That Will Affect Care: None Current Living Situation: Spouse Other Information That Helps Us Care for You: No Feels Safe at Home: Yes Safety Concerns: Feels Safe At This Time Assistive Devices: CPAP and Glasses Review of Systems Review of Systems: All systems reviewed & are unremarkable except as noted in HPI & below Physical Exam Physical Exam: General- Not in distress Head- atraumatic Eyes- PERRL. ENT- oropharynx clear Neck- supple, no JVD. Lungs- clear to auscultation no wheezing or crackles. Heart- regular rhythm; no murmur, no gallop. Abdomen- normal bowel sounds, soft, nontender, no distension. Extremities- no pretibial edema, Lfet foot erythematous and slight swollen around big toe region Neuro- alert, oriented PERRL, no facial palsy; no dysarthria; moves extremities Results & Data Results & Data Vital Signs (Past 12 Hours) Vital Signs Temp Pulse Pulse Resp BP BP Pulse Ox 09/18/23 02:00 73 17 161/104 H 92 09/18/23 01:45 73 21 181/92 H 93 09/18/23 00:30 75 19 165/103 H 94 09/17/23 23:15 84 17 182/94 H 93 09/17/23 21:12 36.2 C L 88 20 186/127 H 97 O2 Del Method 09/18/23 02:00 Room Air 09/18/23 01:45 Room Air 09/18/23 00:30 Room Air 09/17/23 23:15 Room Air 09/17/23 21:12 Room Air Diagnostic Findings Laboratory Results WBC 5.40 K/ul (4.8-10.8) 09/17/23 21:54 RBC 5.88 M/uL (4.20-5.40) H 09/17/23 21:54 Hgb 16.4 g/dl (12.0-16.0) H 09/17/23 21:54 Hct 48.3 % (37.0-47.0) H 09/17/23 21:54 MCV 82.1 fL (80.0-100.0) 09/17/23 21:54 MCH 27.9 pg (25.0-34.0) 09/17/23 21:54 MCHC 34.0 g/dL (32.0-36.0) 09/17/23 21:54 RDW Std Deviation 42.8 fL (36.4-46.3) 09/17/23 21:54 RDW Coeff of Chidi 14.6 % (11.5-14.5) H 09/17/23 21:54 Plt Count 161 K/uL (130-400) 09/17/23 21:54 MPV 10.0 fL (9.4-12.4) 09/17/23 21:54 Immature Gran % (Auto) 0.2 % 09/17/23 21:54 Neut % (Auto) 53.8 % 09/17/23 21:54 Lymph % (Auto) 29.4 % 09/17/23 21:54 [place] % (Auto) 11.7 % 09/17/23 21:54 Eos % (Auto) 4.3 % 09/17/23 21:54 Baso % (Auto) 0.6 % 09/17/23 21:54 Neut # (Auto) 2.91 K/uL (1.40-6.50) 09/17/23 21:54 Lymph # (Auto) 1.59 K/uL (1.20-3.40) 09/17/23 21:54 [place] # (Auto) 0.63 K/uL (0.11-0.59) H 09/17/23 21:54 Eos # (Auto) 0.23 K/uL (0.00-0.50) 09/17/23 21:54 Baso # (Auto) 0.03 K/uL (0.00-0.20) 09/17/23 21:54 Immature Gran # (Auto) 0.01 K/uL (0.01-0.20) 09/17/23 21:54 Sodium 139 mmol/L (136-145) 09/17/23 21:54 Potassium 4.3 mmol/L (3.5-5.1) 09/17/23 21:54 Chloride 106 mmol/L (98-107) 09/17/23 21:54 Carbon Dioxide 26 mmol/L (21-32) 09/17/23 21:54 Anion Gap 7 (3-11) 09/17/23 21:54 BUN 8 mg/dl (6-23) 09/17/23 21:54 Creatinine 0.86 mg/dl (0.6-1.2) 09/17/23 21:54 Est Cr Clr Drug Dosing 69.0 ml/min 09/17/23 21:54 Est GFR ( Amer) 86.9 ml/min 09/17/23 21:54 Est GFR (Non-Af Amer) 75.0 ml/min 09/17/23 21:54 BUN/Creatinine Ratio 9.3 (10-20) L 09/17/23 21:54 Glucose 191 mg/dl (70-99(Fasting)) H 09/17/23 21:54 Lactate 1.8 mmol/L (0.4-2.0) 09/17/23 23:06 Calcium 9.5 mg/dl (8.6-10.3) 09/17/23 21:54 Total Bilirubin 0.4 mg/dl (0.2-1.0) 09/17/23 21:54 AST 28 U/L (13-39) 09/17/23 21:54 ALT 18 U/L (7-52) 09/17/23 21:54 Alkaline Phosphatase 128 U/L (34-104) H 09/17/23 21:54 Total Protein 7.5 gm/dl (6.0-8.3) 09/17/23 21:54 Albumin 4.4 gm/dl (3.4-5.0) 09/17/23 21:54 Globulin 3.1 gm/dl (2.5-4.0) 09/17/23 21:54 Albumin/Globulin Ratio 1.4 (0.9-2) 09/17/23 21:54 Impressions Venous Doppler Study 09/17/23 22:26 Exam(s): US VENOUS LEFT LOWER EXTREMITY EXAM: US Duplex Left Lower Extremity Veins CLINICAL HISTORY: Reason for exam: Eval for DVT. TECHNIQUE: Real-time duplex ultrasound scan of the left lower extremity veins integrating B-mode two-dimensional vascular structure, Doppler spectral analysis, color flow Doppler imaging and compression. COMPARISON: No relevant prior studies available. FINDINGS: Deep veins: Unremarkable. No DVT in the visualized common femoral, femoral, proximal deep femoral or popliteal veins. The veins demonstrate normal color flow, are normally compressible, with normal phasic flow and/or augmentation response. Superficial veins: No thrombus. Soft tissues: No acute findings. No popliteal cyst. IMPRESSION: No evidence of DVT in the left lower extremity. Electronically signed by: Leobardo Elder MD 09/18/23 02:52 AM Code Status & VTE Plan VTE Prophylaxis Plan VTE Prophylaxis will be ordered: Yes
[2023-09-18] MEDS ORDERED: DEXTROSE 50% 50 ML SYRINGE IV PRN (05:33)
[2023-09-18] MEDS ORDERED: GLUCAGON FOR INJ 1 MG VIAL SQ PRN (05:33)
[2023-09-18] MEDS ORDERED: CARBOHYDRATES FOR HYPOGLYCEMIA PO PRN (05:33)
[2023-09-18] MEDS ORDERED: GLUCOSE 10 TAB/TUBE PO PRN (05:33)
[2023-09-18] MEDS ORDERED: CLOBETASOL PROPIONATE 0.05% CREAM 15 GM TUBE TOP PRN (05:33)
[2023-09-18] MEDS ORDERED: VANCOMYCIN CONSULT ACTIVE PRN (05:33)
[2023-09-18] MEDS ORDERED: traMADol HCL 50 MG TABLET PO PRN (05:33)
[2023-09-18] MEDS ORDERED: ALBUT/IPRATROP 3MG/0.5MG NEB 3 ML VIAL NEB PRN (05:33)
[2023-09-18] MEDS ORDERED: GLUCOSE 40% GEL 15 GM TUBE PO PRN (05:33)
[2023-09-18] MEDS ORDERED: POLYETHYLENE (MIRALAX) 17 GM PACK PO PRN (05:33)
[2023-09-18] MEDS ORDERED: MELATONIN 3 MG TAB PO PRN (06:13)
[2023-09-18] MEDS: PIPER/TAZO 4.5g in D5W MINI-B 100 ML IV STA (06:44)
[2023-09-18] MEDS: SODIUM CHLORIDE 0.9% 1,000 ML IV SCH (06:45)
[2023-09-18] MEDS: VANCOMYCIN HCL 1,500 MG in SODIUM CHLORIDE 0.9% 500 ML IV STA (07:31)
[2023-09-18 07:33] LABS: Basophils # (auto) 0.03 K/uL (0.00-0.20); Basophils % (auto) 0.6 %; Eosinophils # (auto) 0.21 K/uL (0.00-0.50); Eosinophils % (auto) 4.1 %; Hemoglobin 15.1 g/dl (12.0-16.0); Immature Granulocytes # (auto) 0.02 K/uL (0.01-0.20); Immature Granulocytes % (auto) 0.4 %; Lymphocytes # (auto) 1.87 K/uL (1.20-3.40); Lymphocytes % (auto) 36.4 %; Mean Corpuscular Hemoglobin 27.9 pg (25.0-34.0); Mean Corpuscular Hgb Conc 33.6 g/dL (32.0-36.0); Mean Corpuscular Volume 83.2 fL (80.0-100.0); Mean Platelet Volume 10.1 fL (9.4-12.4); Monocytes % (auto) 11.7 %; Neutrophils # (auto) 2.41 K/uL (1.40-6.50); Neutrophils % (auto) 46.8 %; Platelet Count 140 K/uL (130-400); RDW Coefficient of Variation 14.6 % (11.5-14.5); RDW Standard Deviation 43.4 fL (36.4-46.3); Red Blood Count 5.41 M/uL (4.20-5.40); White Blood Count 5.14 K/ul (4.8-10.8)
[2023-09-18] MEDS ORDERED: Nursing to Pharmacy Communication SCH (07:45)
[2023-09-18 07:51] LABS: BUN Creatinine Ratio 9.6 (10-20); Calcium 8.9 mg/dl (8.6-10.3); Creatinine Clr Calc Pharmacy 81.5 ml/min; Est GFR (Non-African American) 91.4 ml/min; Magnesium 1.7 mg/dl (1.7-2.4); Potassium 4.1 mmol/L (3.5-5.1); Uric Acid 4.5 mg/dl (2.6-7.2)
[2023-09-18] MEDS: INSULIN ASPART PER UNIT CHARGE SC SCH (08:59)
[2023-09-18] MEDS: LACTOBACILLUS ACIDOPHILUS 1 GM PACK PO SCH (09:04)
[2023-09-18] MEDS: lisinopril 10 MG TAB PO ONE (09:04)
[2023-09-18] MEDS: METOPROLOL SUCC 50MG EXT REL TAB PO STA (09:04)
[2023-09-18] MEDS: CHOLECALCIFEROL 25 MCG (1000 UNITS) TAB PO SCH ×2 (09:13→21:56)
[2023-09-18] MEDS: ASPIRIN 81 MG ECTAB PO SCH ×2 (09:13→21:56)
[2023-09-18] MEDS: METOPROLOL SUCC 50MG EXT REL TAB PO SCH ×2 (09:21→21:56)
[2023-09-18] MEDS: ROSUVASTATIN CALCIUM 10 MG TAB PO SCH ×2 (09:22→21:54)
[2023-09-18] MEDS: ENOXAPARIN INJ 40 MG/0.4 ML SYR SQ SCH (09:24)
[2023-09-18] MEDS ORDERED: methylPREDNISolone 125 MG/2 ML VIAL IV STA (09:24)
--- NOTE | 2023-09-18 09:26 | XRay Report ---
XR foot LT min 3V routine CLINICAL HISTORY: infx TECHNIQUE: 3 views of the left foot were obtained. Comparison: Comparison is made to foot radiographs 01/19/2019 FINDINGS: No evidence of bony erosion is seen. Degenerative changes are seen. Soft tissue swelling is seen abou t the foot. IMPRESSION: No radiographic evidence of osteomyelitis. If clinical concern remains, MRI is a more sensitive modal ity. ACT 112: Negative or not required by law. Electronically signed by: Baldemar Prater M.D. 09/18/2023 9:24 AM
[2023-09-18] MEDS: UMECLIDINIUM/VILANTEROL 62.5/25MCG 7 PUFFS/INHALER INH SCH (09:27)
[2023-09-18] MEDS: FLUTICASONE FUROATE 100MCG 14 PUFFS/INHALER INH SCH (09:28)
[2023-09-18] MEDS: MULTIVITAMIN TAB PO SCH (09:29)
[2023-09-18] MEDS: DULoxetine HCL 60 MG CAP PO SCH (09:31)
[2023-09-18] MEDS: NICOTINE 21 MG/24 HR TDSY TD SCH (09:31)
[2023-09-18] MEDS: GABAPENTIN 600 MG TAB PO SCH (09:31)
[2023-09-18 09:36] LABS: Estimated Average Glucose 160 mg/dl; Hemoglobin A1C 7.2 % (4.5-5.6)
[2023-09-18] MEDS: ACETAMINOPHEN 325 MG TAB PO PRN (10:09)
[2023-09-18] MEDS: methylPREDNISolone 40 MG in SYRINGE 0 ML IV STA (10:21)
[2023-09-18] MEDS ORDERED: PIPERACILLIN/TAZOBACTAM 4.5 GM in DEXTROSE 5% MINI-B 100 ML IV SCH (12:00)
[2023-09-18] MEDS: GABAPENTIN 300 MG CAP PO SCH (12:20)
--- NOTE | 2023-09-18 13:02 | Communication Note ---
Date of Service: September 18, 2023 Evaluated patient at bedside. Left foot with erythema around great hallux, low suspicion for cellulitis given joint involvement; high suspicion for gout Exam with exquisite tenderness and erythema/swelling around great hallux, no wounds or lesions noted #Left toe pain, suspect acute gout flare holding antibiotics at this time given hx of c diff and suspicion for gout (no wbc elevation or systemic signs/symptoms) -s/p 1x dose of IV methylpred start 7 day prednisone 40mg daily Assess improvement with steroids No indication for urate lowering therapy at this time
[2023-09-18] MEDS ORDERED: VANCOMYCIN HCL 1,000 MG in SODIUM CHLORIDE 0.9% 250 ML IV SCH (18:00)
[2023-09-18] MEDS: lisinopril 20 MG TAB PO SCH (21:54)
[2023-09-18] MEDS: ZOLPIDEM TARTRATE 5 MG TAB PO SCH (22:08)
[2023-09-18] MEDS: ZOLPIDEM TARTRATE 5 MG TAB PO PRN (23:37)
[2023-09-19 06:31] LABS: Hematocrit (blood only) 45.2 % (37.0-47.0); Hemoglobin 15.3 g/dl (12.0-16.0); Mean Corpuscular Hemoglobin 28.2 pg (25.0-34.0); Mean Corpuscular Hgb Conc 33.8 g/dL (32.0-36.0); Mean Corpuscular Volume 83.4 fL (80.0-100.0); Mean Platelet Volume 10.3 fL (9.4-12.4); Platelet Count 155 K/uL (130-400); RDW Coefficient of Variation 14.4 % (11.5-14.5); RDW Standard Deviation 43.4 fL (36.4-46.3); Red Blood Count 5.42 M/uL (4.20-5.40); White Blood Count 8.39 K/ul (4.8-10.8)
[2023-09-19 06:59] LABS: Anion Gap 9 (3-11); BUN Creatinine Ratio 13.4 (10-20); Blood Urea Nitrogen 11 mg/dl (6-23); Calcium 9.7 mg/dl (8.6-10.3); Carbon Dioxide 25 mmol/L (21-32); Chloride 107 mmol/L (98-107); Creatinine Clr Calc Pharmacy 72.6 ml/min; Est GFR (African American) 92.1 ml/min; Est GFR (Non-African American) 79.4 ml/min; Glucose 185 mg/dl (70-99(Fasting)); Magnesium 1.9 mg/dl (1.7-2.4); Sodium 141 mmol/L (136-145)
[2023-09-19] MEDS: predniSONE 20 MG TAB PO SCH (08:36)
--- NOTE | 2023-09-19 08:40 | Hospitalist Progress Note ---
Date of Service September 19, 2023 Assessment & Plan (1) Cellulitis of left foot: Plan: 58-year-old female with past medical history significant for type 2 diabetes, mixed dyslipidemia, granulomatous lung disease, COPD, deviated nasal septum, obstructive sleep apnea on CPAP, traumatic subarachnoid hemorrhage with loss of consciousness, left ventricular hypertrophy, hypertension, hepatic steatosis, elevated hemoglobin, immune thrombocytopenia, stills disease of adult, rheumatoid arthritis involving multiple sites with positive rheumatoid factor, history of C. difficile, tobacco use disorder, comes because of left foot cellulitis and failed outpatient treatment with Bactrim. Patient was recently in [place]. Patient noticed left foot infection while she was in [place] last weekend. Came back on Wednesday. She went to [facility] on Wednesday and she was prescribed Bactrim which she started Wednesday night. After 3 days of antibiotics when she checked her left foot today it seems to be getting worse. She tried to go to her PCP office but because of IT outrage she and didnot get appointment. Tried to go [facility] but they told her because of IT outrage they could not see her today and advised to come tomorrow and then she decided to come to ER. Denies any fevers. Feels pressure and tightness in left foot but no pain. Was able to ambulate and put weight on the leg. Hemodynamics are okay. Denies any headache. No blurred vision. No runny nose or sore throat. No cough. Appetite is okay. No chest pain or shortness of breath. No nausea. No abdominal pain. Normal bowel and bladder movements. cellulitis of left foot failed outpatient treatment with Bactrim no DVT on Doppler on immunosuppressive medications received Rocephin in the ER will continue with IV Vanco and Zosyn also check uric acid levels monitor the response type 2 diabetes hold home p.o. medications sliding scale will check HbA1c levels will monitor COPD continue home inhalers and nebs as needed obstructive sleep apnea CPAP nightly rheumatoid arthritis stills disease of adult on Kevzara hypertension on lisinopril on metoprolol succinate we will monitor hyperlipidemia on statin history of C. difficile will place on probiotics while getting antibiotics DVT prophylaxis Lovenox disposition medical floor full code Admission and Anticipated Discharge Date Admission Date: September 18, 2023 Results & Data Results & Data Vital Signs (Past 12 Hours) Vital Signs Temp Pulse Resp BP Pulse Ox O2 Del Method 09/19/23 07:15 Room Air 09/19/23 07:02 36.6 C 74 16 157/72 H 92 Room Air 09/18/23 21:21 Room Air 09/18/23 21:08 36.8 C 82 18 168/74 H 93 Room Air
--- NOTE | 2023-09-19 11:22 | Discharge Summary ---
Discharge Summary Date of Service September 19, 2023 Principal Dx & Hospital Course #1 = Principal Diagnosis (1) Cellulitis of left foot: Plan Ms. Hardy is a 58-year-old female with past medical history significant for type 2 diabetes, mixed dyslipidemia, granulomatous lung disease, COPD, deviated nasal septum, obstructive sleep apnea on CPAP, traumatic subarachnoid hemorrhage with loss of consciousness, left ventricular hypertrophy, hypertension, hepatic steatosis, elevated hemoglobin, immune thrombocytopenia, stills disease of adult, rheumatoid arthritis involving multiple sites with positive rheumatoid factor, history of C. difficile, tobacco use disorder, comes because of left foot cellulitis and failed outpatient treatment with Bactrim. Patient was recently in [place]. Patient noticed left foot redness while she was in [place] last weekend. Came back on Wednesday. She went to [facility] on Wednesday and she was prescribed Bactrim which she started Wednesday night. After 3 days of antibiotics when she checked her left foot today it seems to be getting worse. She tried to go to her PCP office but because of IT outrage she and didnot get appointment She denies fevers, chills or systemic symptoms. Redness and swelling localized around left great hallux, suspicious for gout. Patient recieved IV methylpred and IV abx discontinued on 09/17. The morning of 09/18 patient reported significant improvement in symptoms. Uric acid 4, no indication for urate lowering therapy. #Left toe pain, suspect acute gout flare low suspicion for cellulitis holding antibiotics at this time given hx of c diff and suspicion for gout (no wbc elevation or systemic signs/symptoms) -s/p 1x dose of IV methylpred No indication for urate lowering therapy at this time Notable improvement with IV steroid continue 40mg prednisone for total of 7 days (5 days upon d/c) #type 2 diabetes resume homoe regimen #COPD continue home inhalers and nebs as needed #obstructive sleep apnea CPAP nightly #rheumatoid arthritis stills disease of adult on Kevzara # hypertension on lisinopril on metoprolol succinate # hyperlipidemia on statin #history of C. difficile no diarrhea/abd pain reported Notes For Next Care Provider Medication Changes From Visit Prednisone 40mg qam x 5 days (total 7 day course) Admission HPI Per Admitting Provider 58-year-old female with past medical history significant for type 2 diabetes, mixed dyslipidemia, granulomatous lung disease, COPD, deviated nasal septum, obstructive sleep apnea on CPAP, traumatic subarachnoid hemorrhage with loss of consciousness, left ventricular hypertrophy, hypertension, hepatic steatosis, elevated hemoglobin, immune thrombocytopenia, stills disease of adult, rheumatoid arthritis involving multiple sites with positive rheumatoid factor, history of C. difficile, tobacco use disorder, comes because of left foot cellulitis and failed outpatient treatment with Bactrim. Patient was recently in [place]. Patient noticed left foot infection while she was in [place] last weekend. Came back on Wednesday. She went to [facility] on Wednesday and she was prescribed Bactrim which she started Wednesday night. After 3 days of antibiotics when she checked her left foot today it seems to be getting worse. She tried to go to her PCP office but because of IT outrage she and didnot get appointment. Tried to go [facility] but they told her because of IT outrage they could not see her today and advised to come tomorrow and then she decided to come to ER. Denies any fevers. Feels pressure and tightness in left foot but no pain. Was able to ambulate and put weight on the leg. Hemodynamics are okay. Denies any headache. No blurred vision. No runny nose or sore throat. No cough. Appetite is okay. No chest pain or shortness of breath. No nausea. No abdominal pain. Normal bowel and bladder movements. Past medical history. As mentioned above past surgical history. . Colonoscopy. Lumbar cervical spine injection. ligation of oviduct. Social history. . Smoked 1 pack a day for 36 years. Alcohol rarely. No drug use. Family history. Daughter has asthma. Aunt had breast cancer. Maternal grandmother had breast cancer. Father had heart disorder. Admission Exam Per Admitting Provider General- Not in distress Head- atraumatic Eyes- PERRL. ENT- oropharynx clear Neck- supple, no JVD. Lungs- clear to auscultation no wheezing or crackles. Heart- regular rhythm; no murmur, no gallop. Abdomen- normal bowel sounds, soft, nontender, no distension. Extremities- no pretibial edema, Lfet foot erythematous and slight swollen around big toe region Neuro- alert, oriented PERRL, no facial palsy; no dysarthria; moves extremities Discharge Exam Constitutional WD/WN, vitals as above Respiratory normal respiratory effort, lungs clear to auscultation Cardiovascular RRR, no murmur, no edema Skin left great toe with significant reduction in violaceous erythema/swelling Updated Medication List Medication Instructions Recorded Confirmed Type gabapentin 600 mg tablet See Rx Instructions .Route .COMPLEX 05/30/18 09/18/23 History zolpidem 10 mg tablet 10 mg PO HS 05/30/18 09/18/23 History duloxetine 60 mg capsule,delayed 60 mg PO QAM 01/08/22 09/18/23 History release meloxicam 15 mg tablet 15 mg PO DAILY 01/08/22 09/18/23 History rosuvastatin 10 mg tablet 10 mg PO DAILY 01/08/22 09/18/23 History sarilumab 200 mg/1.14 mL 200 mg subcut UD 01/08/22 09/18/23 History subcutaneous syringe (Kevzara) aspirin 81 mg tablet,delayed 81 mg PO DAILY 11/23/22 09/18/23 History release cholecalciferol (vitamin D3) 50 50 mcg PO DAILY 11/23/22 09/18/23 History mcg (2,000 unit) tablet (Vitamin D3) melatonin 10 mg tablet,extended 10 mg PO HS PRN Sleep 11/23/22 09/18/23 History release ipratropium 0.5 mg-albuterol 3 mg 3 ml NEB Q4R PRN shortness of 11/24/22 09/18/23 Rx (2.5 mg base)/3 mL nebulization breath or wheezing #90 mL soln acetaminophen 500 mg tablet 1,000 mg PO Q6H PRN Pain 05/29/23 09/18/23 History (Tylenol Extra Strength) clobetasol 0.05 % topical cream 1 applic topical DIRECTED PRN 05/29/23 09/18/23 History .FLARE UPS fluticasone fur. 100 mcg-umeclid 1 inh inhalation BID 05/29/23 09/18/23 History 62.5 mcg-vilant 25 mcg inhalat.powder (Trelegy Ellipta) multivitamin 1 tab PO DAILY 05/29/23 09/18/23 History nicotine 21 mg/24 hr daily 1 patch topical DAILY 05/29/23 09/18/23 History transdermal patch tramadol 50 mg tablet 50 mg PO DAILY PRN Pain 05/29/23 09/18/23 History linagliptin 5 mg-metformin ER 1 tab PO DAILY 09/18/23 09/18/23 History 1,000 mg tablet,extended release 24 hr (Jentadueto XR) lisinopril 20 mg tablet 20 mg PO QPM 09/18/23 09/18/23 History metoprolol succinate 50 mg 50 mg PO QAM 09/18/23 09/18/23 History tablet,extended release 24 hr prednisone 20 mg tablet 40 mg (2 x 20 mg) PO DAILY 10 days 09/19/23 Rx #20 tabs Hospital Stay Data Consultations 09/18/23 00:06 ED Decision to Admit Stat Diagnostic Imagining Performed 09/17/23 22:26 US venous doppler LE LT Urgent Pending Results Patient Have Any Pending Studies at Discharge: No Discharge Instructions Given to Patient (Per Discharging Provider) You were admitted for concerns of left foot cellulitis; however, given lack of response to antibiotics, it was determined that this swelling and erythema of the great toe was likely a gout flare. You responded appropriately to steroids. Please continue 40mg Prednisone in the am for the next 5 days (20mg tablet x 2 in am) Please follow up with PCP to discuss any further preventative management for future. Total Time Total Time Spent Total Time Spent (In Minutes): 35
== END 2023-09-19 09:38 | disposition home or self-care (01) | DRG 554 ==
LOC: ED 20:54 → 3W 09-18 03:30

== ENCOUNTER 2025-01-18 15:26 | Inpatient (IN) ==
--- NOTE | 2025-01-18 15:59 | Emergency Department Note ---
Impression & Plan Pyelonephritis, Fever, History of ESBL E. coli infection ED Provider Note NAME: PATRICK HAZEL AGE: 59 SEX: F : 1965 ARRIVES VIA: Walk-In INFORMANT: Patient, ED PROVIDER(S): Burt Herndon DO CHIEF COMPLAINT: Fever HPI: The patient is a 59-year-old female who presented to the emergency department for an evaluation of fever. The patient has a history of recently diagnosed urine infection that led to sepsis. The patient presented to the emergency department today at the request of her urologist because she started having fever again. She is currently not taking any antibiotics. She was recently on Macrobid. She denies having any chest pain or cough. She denies having any nausea or vomiting. ROS: See above HPI for pertinent positives & negatives. A total of 10 systems reviewed and were otherwise negative. PAST MEDICAL HISTORY: See Below PAST SURGICAL HISTORY: See Below FAMILY HISTORY: See Below SOCIAL HISTORY: See Below HOME MEDICATIONS: See Below ALLERGIES: See Below VITALS: See Below PHYSICAL EXAMINATION: GENERAL: Patient is awake alert in no acute distress patient is resting comfortably and showing no signs of anxiety EYES: The conjunctivae are clear. The pupils are round and reactive. EARS, NOSE, MOUTH AND THROAT: The nose is without any evidence of any deformity. NECK: The neck is nontender and supple. RESPIRATORY: Normal respiratory effort is noted there is no evidence of wheezing rhonchi or rales CARDIOVASCULAR: Tachycardic but regular heart sounds were noted to auscultation. There is no definite murmur. GASTROINTESTINAL: The abdomen is soft. Abdomen is nontender. BACK: No midline tenderness or or step-off noted range of motion in flexion extension as well as rotation no signs of muscle spasm noted MUSCULOSKELETAL/EXTREMITIES: There is no evidence of gross deformity full range of motion is noted in the hips and shoulders. SKIN: There is no obvious evidence of any rash. There are no petechiae, pallor or cyanosis noted. NEUROLOGIC: Patient is awake alert and oriented x3 strength is symmetric patellar reflexes are 2+ bilaterally MEDICAL DECISION MAKING: The patient is a 59-year-old female who presented to the emergency department for an evaluation. The patient has a history of rheumatoid arthritis. She was recently admitted to our facility for urine infection. The patient was on an antibiotic until this past Wednesday. She was taking Macrobid. The patient was seeing a urologist. She went to see the urologist recently and was cleared from their standpoint. The patient started having fever and urinary symptoms today. She was sent to the emergency department by her primary urologist. I discussed the patient's laboratory and radiographic studies with her. She was started on IV antibiotics after discussion with the ED clinical pharmacist. The patient did have a fever while in the emergency department. For this reason the [facility] was notified about the patient. They will evaluate the patient in the emergency department. Triage Nursing notes reviewed. Prior medical records reviewed Vital Signs: reviewed and remarkable for fever tachycardia and hypertension. Differential diagnosis: Viral syndrome, otitis, pharyngitis, pneumonia, influenza, meningitis, urinary tract infection, sepsis, bacteremia, as well as other pathologies. ER treatment provided: See below Diagnostics interpreted by me: ECG: none Cardiac Monitoring: An order was placed for continuous cardiac monitoring. The monitor shows a rate of 107 bpm with sinus tachycardia. Laboratory studies: As stated above and show below. Imaging studies: See below. Radiographic imaging was reviewed by myself Consultation(s): I discussed this case with Estefania who is on-call for the [facility]. Past Med/Surg History Problem List (Updated 01/18/25 @ 17:50 by Burt Herndon DO) History of ESBL E. coli infection (Acute) Pyelonephritis (Acute) Hyponatremia Sepsis Recurrent UTI Multiple traumatic injuries within prior month History of subarachnoid hemorrhage UTI (urinary tract infection) (Acute) SIRS (systemic inflammatory response syndrome) (Acute) SOB (shortness of breath) (Acute) COPD exacerbation (Acute) Hypoxia (Acute) Rhinovirus infection (Acute) Pulmonary atelectasis Smoking (Chronic) Syncope Discharge planning issues DVT prophylaxis Status post section (Chronic) Hypertensive heart disease (Chronic) Hypertension (Chronic) COPD (chronic obstructive pulmonary disease) (Chronic) COPD exacerbation (Acute) Influenza A (Acute) Fever (Acute) Rheumatoid arthritis (Chronic) History of ITP (Chronic) Still's disease (Chronic) Type 2 diabetes mellitus (Chronic) Sleep apnea (Chronic) Hypoxia (Acute) Medical History (Updated 01/18/25 @ 17:50 by Burt Herndon DO) Cellulitis of left foot Cellulitis of left lower extremity Hypertension Family History Aunt Breast cancer Grandmother Breast cancer Father Heart disease Social History Smoking Status: Never smoker Tobacco Type: Cigarettes Cigarettes Per Day: 1 pack per day; Second Hand Exposure: No; Do You Dip or Chew Tobacco: No; Hx Alcohol Use: No Hx Substance Use: Yes Last Used Substance: Days (ago) Last Used Substance Other:: medical marijuana card Preferred Language: Honduran Communication Ability: Effective Product Development Ecologist Required: No Beliefs That Will Affect Care: None Current Living Situation: Spouse Feels Safe at Home: Yes Assistive Devices: Glasses Allergies Allergies Allergy/AdvReac Type Severity Reaction Status Date / Time No Known Allergies Allergy Verified 12/24/24 07:53 Home Meds Home Medications Medication Instructions Recorded Confirmed gabapentin 600 mg tablet 600 mg PO UD 05/30/18 01/18/25 duloxetine 60 mg capsule,delayed 60 mg PO QAM 01/08/22 01/18/25 release rosuvastatin 10 mg tablet 15 mg PO DAILY 01/08/22 01/18/25 sarilumab 200 mg/1.14 mL 200 mg subcut UD 01/08/22 01/18/25 subcutaneous syringe (Lendazara) cholecalciferol (vitamin D3) 50 50 mcg PO DAILY 11/23/22 01/18/25 mcg (2,000 unit) tablet (Vitamin D3) multivitamin 1 tab PO DAILY 05/29/23 01/18/25 linagliptin 5 mg-metformin ER 1 tab PO QAM 09/18/23 01/18/25 1,000 mg tablet,extended release 24 hr (Jentadueto XR) albuterol sulfate 90 mcg/actuation 2 inh inhalation Q4H PRN 12/18/24 01/18/25 aerosol inhaler SOB/Wheezing alendronate 70 mg tablet 0 mg PO WK 12/18/24 01/18/25 allopurinol 100 mg tablet 100 mg PO QAM 12/18/24 01/18/25 aspirin 81 mg tablet 81 mg PO DAILY 12/18/24 01/18/25 fluticasone fur. 100 mcg-umeclid 1 inh inhalation QAM 12/18/24 01/18/25 62.5 mcg-vilant 25 mcg inhalat.powder (Trelegy Ellipta) glipizide 5 mg tablet, extended 15 mg PO QAM 12/18/24 01/18/25 release 24 hr lisinopril 10 mg tablet 10 mg PO QAM 12/18/24 01/18/25 mavacamten 10 mg capsule (Camzyos) 10 mg PO QAM 12/18/24 01/18/25 meloxicam 15 mg tablet 15 mg PO QAM 12/18/24 01/18/25 metoprolol succinate 50 mg 50 mg PO QAM 12/18/24 01/18/25 tablet,extended release 24 hr zolpidem 10 mg tablet 10 mg PO HS PRN Insomnia 12/18/24 01/18/25 estradiol 0.01% (0.1 mg/gram) 1 applic vaginal UD 01/18/25 01/18/25 vaginal cream metformin 500 mg tablet,extended 1,000 mg PO PM 01/18/25 01/18/25 release 24 hr Results & Data (ED) Vital Signs Vital Signs - 24 hr 01/18/25 15:28 01/18/25 16:40 01/18/25 17:26 Temperature 37.6 C H Temperature Source Oral Pulse Rate 111 H 106 H Pulse Rate [Apical] 107 H Respiratory Rate 18 18 Respiratory Effort / Characteristics Non-Labored Spontaneous Respiratory Depth Normal Blood Pressure 180/109 H Blood Pressure [Left Arm] 166/94 H Blood Pressure Mean 132 Blood Pressure Mean [Left Arm] 118 Blood Pressure Position Sitting Pulse Oximetry 97 Oxygen Delivery Method Room Air Sepsis Recent Fever Within 48 Hours Yes Sepsis New/Unexplained Change in Mental Status No Sepsis Action Taken by Nursing No Action Required 01/18/25 17:32 Temperature 38.1 C H Temperature Source Oral Pulse Rate Pulse Rate [Apical] Respiratory Rate Respiratory Effort / Characteristics Respiratory Depth Blood Pressure Blood Pressure [Left Arm] Blood Pressure Mean Blood Pressure Mean [Left Arm] Blood Pressure Position Pulse Oximetry Oxygen Delivery Method Sepsis Recent Fever Within 48 Hours Sepsis New/Unexplained Change in Mental Status Sepsis Action Taken by Custodial Medications Current Medication List: was personally reviewed by me Laboratory Data Attestation: I reviewed the patient's lab results. 01/18/25 16:00 01/18/25 16:00 Lab Results 01/18/25 01/18/25 Range/Units 16:00 16:04 WBC 10.48 (4.8-10.8) K/ul RBC 5.12 (4.20-5.40) M/uL Hgb 15.3 (12.0-16.0) g/dL POC Hgb 15.6 (12.0-16.0) g/dl Hct 44.3 (37.0-47.0) % POC Hct 46 (37-47) % MCV 86.5 (80.0-100.0) fL MCH 29.9 (25.0-34.0) pg MCHC 34.5 (32.0-36.0) g/dL RDW Std Deviation 43.6 (36.4-46.3) fL RDW Coeff of Chidi 13.9 (11.5-14.5) % Plt Count 164 (130-400) K/uL MPV 10.1 (9.4-12.4) fL Immature Gran % (Auto) 0.4 % Neut % (Auto) 73.2 % Lymph % (Auto) 15.6 % [place] % (Auto) 9.2 % Eos % (Auto) 1.3 % Baso % (Auto) 0.3 % Neut # (Auto) 7.68 H (1.40-6.50) K/uL Lymph # (Auto) 1.63 (1.20-3.40) K/uL [place] # (Auto) 0.96 H (0.11-0.59) K/uL Eos # (Auto) 0.14 (0.00-0.50) K/uL Baso # (Auto) 0.03 (0.00-0.20) K/uL Immature Gran # (Auto) 0.04 (0.01-0.20) K/uL ESR 22 (0-30) mm/hr POC Sodium 139 (135-144) mmol/L Sodium 137 (136-145) mmol/L POC Potassium 3.8 (3.3-5.0) mmol/L Potassium 3.8 (3.5-5.1) mmol/L POC Chloride 100 L (101-112) mmol/L Chloride 104 (98-107) mmol/L Carbon Dioxide 26 (21-32) mmol/L POC Total CO2 25 (24-31) mmol/L Anion Gap 7 (3-11) POC Anion Gap 19.0 (16-25) mmol/L POC BUN 7 (7-18) mg/dl BUN 8 (6-23) mg/dl Creatinine 0.76 (0.6-1.2) mg/dl POC Creatinine 0.8 (0.6-1.3) mg/dl Est Cr Clr Drug Dosing 77.7 ml/min eGFR 90.77 BUN/Creatinine Ratio 10.5 (10-20) Glucose 259 H (70-99(Fasting)) mg/dl POC Glucose (other) 249 H (70-99) mg/dl Lactate 1.9 (0.4-2.0) mmol/L Calcium 9.3 (8.6-10.3) mg/dl POC Ioniz Calcium Steve 1.10 L (1.12-1.32) mmol/l Total Bilirubin 0.4 (0.2-1.0) mg/dl AST 14 (13-39) U/L ALT 14 (7-52) U/L Alkaline Phosphatase 107 H (34-104) U/L C-Reactive Protein 1.79 H (0-0.5) mg/dl Total Protein 6.9 (6.0-8.3) gm/dl Albumin 4.3 (3.4-5.0) gm/dl Globulin 2.6 (2.5-4.0) gm/dl Albumin/Globulin Ratio 1.7 (0.9-2) Lipase 31 (11-82) U/L Procalcitonin 0.06 (0-0.5) ng/ml Urine Color Yellow Urine Appearance Clear (Clear) Urine pH 8.0 H (4.5-7.5) Ur Specific Altha 1.008 (1.000-1.030) Urine Protein Negative (Negative) Urine Glucose (UA) 1+ H (Negative) Urine Ketones Negative (Negative) Urine Blood Trace H (Negative) Urine Nitrite Negative (Negative) Urine Bilirubin Negative (Negative) Urine Urobilinogen Negative (Negative) Ur Leukocyte Esterase 3+ H (Negative) Urine WBC (Auto) >50 H (0-5) /hpf Urine RBC (Auto) 0-2 (0-2) /hpf U Hyaline Cast (Auto) 0-2 (0-2) /lpf U Epithel Cells (Auto) 0-2 (0-2) /hpf Urine Bacteria (Auto) None Seen (None Seen) Urine Comment Administered Medications Discontinued Medications Acetaminophen (Acetaminophen 500 Mg Tab) 1,000 mg PO NOW STA Stop: 01/18/25 17:35 Last Admin: 01/18/25 17:37 Dose: 1,000 mg Documented By: MALKA Sodium Chloride (Nss) 1,000 mls @ 999 mls/hr IV .Q1H1M ONE Stop: 01/18/25 16:48 Last Infusion: 01/18/25 17:38 Dose: Infused Documented By: Admin: 01/18/25 16:37 Dose: 999 mls/hr Documented By: MALKA Ertapenem (Invanz 1000mg) 1,000 mg in 10 mls @ 2 mls/min IV NOW STA Stop: 01/18/25 15:59 Last Admin: 01/18/25 17:28 Dose: 2 mls/min Documented By: MALKA Ioversol (Optiray 320 100ml) 90 ml IV ONCE ONE Stop: 01/18/25 16:26 Last Admin: 01/18/25 16:25 Dose: 90 ml Documented By: LETICIA Imaging Data Attestation: I personally reviewed and interpreted this imaging study as follows: My Impression: CT of the abdomen and pelvis was obtained in the emergency department. My interpretation is no free air or signs of bowel obstruction, final report below. Radiologist's Impression: Abdomen/Pelvis CT 01/18/25 15:48 Technique: Axial computed tomography images were obtained of the abdomen and pelvis after the administration of intravenous contrast. Comparison is made to the prior CT dated 05/29/2023. Findings: The liver is overall of normal size, attenuation, and contour with no sign of cirrhosis or significant fatty infiltration. No liver mass lesion is seen. The portal vein is patent. The gallbladder appears unremarkable. No bile duct dilatation is noted. The spleen is of normal size. No focal splenic lesion is evident. The pancreas appears normal with no sign of acute or chronic pancreatitis and no mass lesion noted. The pancreatic duct is of normal caliber. The adrenal glands appear unremarkable. There is a 6 mm calculus in the mid left kidney. There is no hydronephrosis or perinephric stranding. There is mild multifocal diminished renal cortical enhancement bilaterally, suspicious for pyelonephritis The aorta is of normal caliber. No abdominal adenopathy is seen. The stomach appears normal. There is no sign of small bowel obstruction. There is diverticulosis without definite diverticulitis. The appendix appears normal. No free intraperitoneal fluid or air is identified. No distal ureteral or bladder calculi are seen. No bladder mass lesion is evident. The iliac arteries are of normal caliber. No pelvic adenopathy is noted. There are small bilateral inguinal hernias containing only fat The lungs bases appear clear. Mild thoracolumbar degenerative disc disease is seen. There is an old healed fracture of the left inferior pubic ramus. There is bilateral hip osteoarthritis. No focal osseous lesion is seen Impression: 1. Suspected mild bilateral pyelonephritis 2. Nonobstructing left renal calculus 3. Diverticulosis without definite diverticulitis ACT 112: Positive. There are findings on this exam that require communication between the performing entity and the patient following Patient Test Result Information Act ([place] ACT 112) guidelines. Electronically signed by Espinoza Sahu 01-18-2025 5:03 PM Chest X-Ray 01/18/25 15:48 Clinical History: Fever Technique: A frontal view of the chest was obtained Comparison is made to the prior examination dated 12/21/2024 Findings: There are no confluent pulmonary infiltrates. The heart is mildly enlarged. No pleural effusion or pneumothorax is seen. There is suspected mild pulmonary edema No fracture is noted. No foreign body is seen Impression: Cardiomegaly and mild pulmonary edema ACT 112: Positive. There are findings on this exam that require communication between the performing entity and the patient following Patient Test Result Information Act ([place] ACT 112[place] guidelines. Electronically signed by Espinoza Sahu 01-18-2025 4:16 PM Discharge Plan Visit Data Chief Complaint: Urinary Symptoms Stated Complaint: UTI, FEVER DOC SENT FOR [facility] ED Provider: Burt Herndon Discharge Problem: Pyelonephritis, Fever, History of ESBL E. coli infection Patient Disposition: Being Evaluated by Hospitalist Condition: Fair Forms Stand Alone Forms: [facility] Prescriptions Prescriptions: No Action gabapentin 600 mg Tablet 600 mg PO UD Rx Instructions: Take 1 tablet in the morning, 1-1/2 tablet at noon and 1-1/2 tablet before bedtime. rosuvastatin 10 mg tablet 15 mg PO DAILY Kevzara 200 mg/1.14 mL syringe 200 mg SUBCUT UD Rx Instructions: Injection every other week for RA. duloxetine 60 mg capsule,delayed release(DR/EC) 60 mg PO QAM cholecalciferol (vitamin D3) [Vitamin D3] 50 mcg (2,000 unit) Tablet 50 mcg PO DAILY metoprolol succinate 50 mg tablet extended release 24 hr 50 mg PO QAM meloxicam 15 mg tablet 15 mg PO QAM alendronate 70 mg tablet 0 mg PO WK Patient Comments: 01/18- hasnt started it yet glipizide 5 mg tablet extended release 24hr 15 mg PO QAM allopurinol 100 mg tablet 100 mg PO QAM lisinopril 10 mg tablet 10 mg PO QAM albuterol sulfate 90 mcg/actuation HFA aerosol inhaler 2 inh INHALATION Q4H PRN (Reason: SOB/Wheezing) Trelegy Ellipta 100-62.5-25 mcg blister with device 1 inh INHALATION QAM Camzyos 10 mg capsule 10 mg PO QAM aspirin 81 mg Tablet 81 mg PO DAILY zolpidem 10 mg tablet 10 mg PO HS PRN (Reason: Insomnia) estradiol 0.01 % (0.1 mg/gram) cream 1 applic VAGINAL UD Patient Comments: 01/18-was going to start tonight metformin 500 mg tablet extended release 24 hr 1,000 mg PO PM multivitamin Tablet 1 tab PO DAILY Jentadueto XR 5-1,000 mg tablet, IR - ER, biphasic 24hr 1 tab PO QAM Referrals Referrals: Raven Agrawal MD [Primary Care Provider] -
[2025-01-18 16:16] LABS: Hematocrit (blood only) 44.3 % (37.0-47.0); Hemoglobin 15.3 g/dL (12.0-16.0); Immature Granulocytes # (auto) 0.04 K/uL (0.01-0.20); Immature Granulocytes % (auto) 0.4 %; Mean Corpuscular Hemoglobin 29.9 pg (25.0-34.0); Mean Corpuscular Volume 86.5 fL (80.0-100.0); Platelet Count 164 K/uL (130-400); RDW Standard Deviation 43.6 fL (36.4-46.3); Red Blood Count 5.12 M/uL (4.20-5.40); White Blood Count 10.48 K/ul (4.8-10.8)
--- NOTE | 2025-01-18 16:16 | XRay Report ---
Clinical History: Fever Technique: A frontal view of the chest was obtained Comparison is made to the prior examination dated 12/21/2024 Findings: There are no confluent pulmonary infiltrates. The heart is mildly enlarged. No pleural effusion or pneumothorax is seen. There is suspected mild pulmonary edema No fracture is noted. No foreign body is seen Impression: Cardiomegaly and mild pulmonary edema ACT 112: Positive. There are findings on this exam that require communication between the performing entity and the patient following Patient Test Result Information Act ([place] ACT 112) guidelines. Electronically signed by Espinoza Sahu 01-18-2025 4:16 PM
[2025-01-18 16:19] LABS: Appearance Urine Clear (Clear); Bacteria Urine Automated None Seen (None Seen); Cast Urine Automated 0-2 /lpf (0-2); Epithelial Cell Urine Auto 0-2 /hpf (0-2); Glucose Urine UA 1+ (Negative); RBC Urine Automated 0-2 /hpf (0-2); WBC Urine Automated >50 /hpf (0-5)
[2025-01-18] MEDS: OPTIRAY 320 100ml IV ONE (16:25)
[2025-01-18 16:33] LABS: Alanine Aminotransferase 14.0 U/L (7-52); Albumin Globulin Ratio 1.7 (0.9-2); Albumin Level 4.3 gm/dl (3.4-5.0); Alkaline Phosphatase 107.0 U/L (34-104); Anion Gap 7.0 (3-11); Bilirubin,Total 0.4 mg/dl (0.2-1.0); Blood Urea Nitrogen 8.0 mg/dl (6-23); Calcium 9.3 mg/dl (8.6-10.3); Carbon Dioxide 26.0 mmol/L (21-32); Chloride 104.0 mmol/L (98-107); Creatinine Clr Calc Pharmacy 77.7 ml/min; Globulin 2.6 gm/dl (2.5-4.0); Glucose 259.0 mg/dl (70-99(Fasting)); Lipase 31.0 U/L (11-82); Potassium 3.8 mmol/L (3.5-5.1); Sodium 137.0 mmol/L (136-145); Total Protein 6.9 gm/dl (6.0-8.3)
[2025-01-18] MEDS: SODIUM CHLORIDE 0.9% 1,000 ML IV ONE (16:37)
--- NOTE | 2025-01-18 17:03 | CT Scan Report ---
Technique: Axial computed tomography images were obtained of the abdomen and pelvis after the administration of intravenous contrast. Comparison is made to the prior CT dated 05/29/2023. Findings: The liver is overall of normal size, attenuation, and contour with no sign of cirrhosis or significant fatty infiltration. No liver mass lesion is seen. The portal vein is patent. The gallbladder appears unremarkable. No bile duct dilatation is noted. The spleen is of normal size. No focal splenic lesion is evident. The pancreas appears normal with no sign of acute or chronic pancreatitis and no mass lesion noted. The pancreatic duct is of normal caliber. The adrenal glands appear unremarkable. There is a 6 mm calculus in the mid left kidney. There is no hydronephrosis or perinephric stranding. There is mild multifocal diminished renal cortical enhancement bilaterally, suspicious for pyelonephritis The aorta is of normal caliber. No abdominal adenopathy is seen. The stomach appears normal. There is no sign of small bowel obstruction. There is diverticulosis without definite diverticulitis. The appendix appears normal. No free intraperitoneal fluid or air is identified. No distal ureteral or bladder calculi are seen. No bladder mass lesion is evident. The iliac arteries are of normal caliber. No pelvic adenopathy is noted. There are small bilateral inguinal hernias containing only fat The lungs bases appear clear. Mild thoracolumbar degenerative disc disease is seen. There is an old healed fracture of the left inferior pubic ramus. There is bilateral hip osteoarthritis. No focal osseous lesion is seen Impression: 1. Suspected mild bilateral pyelonephritis 2. Nonobstructing left renal calculus 3. Diverticulosis without definite diverticulitis ACT 112: Positive. There are findings on this exam that require communication between the performing entity and the patient following Patient Test Result Information Act ([place] ACT 112) guidelines. Electronically signed by Espinoza Sahu 01-18-2025 5:03 PM
[2025-01-18] MEDS: ERTAPENEM 1000MG 1,000 MG/10 ML SYR IV STA (17:28)
[2025-01-18] MEDS: ACETAMINOPHEN 500 MG TAB PO STA (17:37)
--- NOTE | 2025-01-18 18:17 | History & Physical Report ---
Date of Service January 18, 2025 Assessment & Plan (1) Pyelonephritis: (2) History of ESBL E. coli infection: (3) Recurrent UTI: (4) Hypertrophic cardiomyopathy: (5) Hypertension: (6) COPD (chronic obstructive pulmonary disease): (7) Rheumatoid arthritis: (8) MASHA on CPAP: (9) Tobacco use: Plan 59 year old female with PMH significant for type 2 diabetes with neuropathy, dyslipidemia, granulomatous lung disease, COPD, MASHA on CPAP, HCM, LVH, hypertension, hepatic steatosis, recurrent UTI, history of TBI, immune thrombocytopenia, rheumatoid arthritis, history of C diff infection, tobacco use disorder who presents to the ED on 01/18/2025 with fever. Bilateral pyelonephritis UTI History of ESBL E Coli UTI Patient presenting with fever and incomplete bladder emptying after recently completing course of Macrobid for E Coli ESBL UTI History of two hospitalizations for sepsis secondary to UTI in November UA+ leuk esterase and WBC CTAP reveals bilateral mild pyelonephritis and a nonobstructing left renal calculus Continue Ertapenem started in ED Follow urine culture Supportive care with NSS at 80mL/hr x1 bag, tylenol PRN Possible sepsis Presenting with fever and tachycardia in setting of UTI and pyelonephritis No leukocytosis, negative lactate and procalcitonin Blood cultures pending Antibiotics for UTI and pyelonephritis as above Mixed incontinence Recurrent UTI Following with Urology in [place] Recurrent UTIs likely secondary to incontinence and use of depends Start Gemtesa (in place of Myrbetriq recommended by Urologist) Type 2 diabetes Hold home oral agents BSG ACHS and SSI while inpatient HCM Hypertension Follows with [place] [facility] and pharmacist Continue Camzyos, metoprolol, lisinopril, rosuvastatin, baby aspirin COPD Does not appear to be in exacerbation Follows with [facility] Pulmonology Continue Trelegy and albuterol PRN Rheumatoid arthritis On Kevzara at home Continue meloxicam and duloxetine MASHA on CPAP CPAP HS Tobacco use disorder Current every day smoker Nicotine patch Counseled on cessation DVT Prophylaxis: SQ Heparin Code Status: FULL CODE - As per discussion at bedside with the patient. PCP: Raven Agrawal Disposition: admit to [place] Patient seen in collaboration with Dr. Zarate. Please see addendum. I spent a total of 70 minutes coordinating, documenting and providing care for this patient excluding time spent in the performance of separately billed serv ices or time spent by another provider/QHP. Admission and Anticipated Discharge Date Admission Date: January 18, 2025 History of Present Illness Chief Complaint: fever Primary Care Provider: Raven Agrawal MD 59 year old female with PMH significant for type 2 diabetes with neuropathy, dyslipidemia, granulomatous lung disease, COPD, MASHA on CPAP, HCM, LVH, hyperten juliette, hepatic steatosis, recurrent UTI, history of TBI, immune thrombocytopenia, rheumatoid arthritis, history of C diff infection, tobacco use disorder who presents to the ED on 01/18/2025 with fever. Patient reports two recent hospitalizations for sepsis secondary to UTI in November 2024. Received ertapenem and daptomycin and completed two days of amoxicillin on 12/24. She then developed low grade fever and UTI symptoms on 01/07 and sought evaluation at [facility] on 01/09. Outpatient urine culture grew E coli ESBL and she completed a 7 day course of Macrobid ending 01/16. The following day, yesterday 01/17, she developed fever, chills, and incomplete bladder emptying and bladder pressure. Her temp was 101.3. She sought evaluation in the ED today because she was concerned about sepsis again. She denies cough (worse than baseline), chest pain, SOB, abdominal pain, flank pain, N/V/D. Allergies Allergy/AdvReac Type Severity Reaction Status Date / Time No Known Allergies Allergy Verified 12/24/24 07:53 Home Medications Medication Instructions Recorded Confirmed Type gabapentin 600 mg tablet 600 mg PO UD 05/30/18 01/18/25 History duloxetine 60 mg capsule,delayed 60 mg PO QAM 01/08/22 01/18/25 History release rosuvastatin 10 mg tablet 15 mg PO DAILY 01/08/22 01/18/25 History sarilumab 200 mg/1.14 mL 200 mg subcut UD 01/08/22 01/18/25 History subcutaneous syringe (Kevzara) cholecalciferol (vitamin D3) 50 50 mcg PO DAILY 11/23/22 01/18/25 History mcg (2,000 unit) tablet (Vitamin D3) multivitamin 1 tab PO DAILY 05/29/23 01/18/25 History linagliptin 5 mg-metformin ER 1 tab PO QAM 09/18/23 01/18/25 History 1,000 mg tablet,extended release 24 hr (Jentadueto XR) albuterol sulfate 90 mcg/actuation 2 inh inhalation Q4H PRN 12/18/24 01/18/25 History aerosol inhaler SOB/Wheezing alendronate 70 mg tablet 0 mg PO WK 12/18/24 01/18/25 History allopurinol 100 mg tablet 100 mg PO QAM 12/18/24 01/18/25 History aspirin 81 mg tablet 81 mg PO DAILY 12/18/24 01/18/25 History fluticasone fur. 100 mcg-umeclid 1 inh inhalation QAM 12/18/24 01/18/25 History 62.5 mcg-vilant 25 mcg inhalat.powder (Trelegy Ellipta) glipizide 5 mg tablet, extended 15 mg PO QAM 12/18/24 01/18/25 History release 24 hr lisinopril 10 mg tablet 10 mg PO QAM 12/18/24 01/18/25 History mavacamten 10 mg capsule (Camzyos) 10 mg PO QAM 12/18/24 01/18/25 History meloxicam 15 mg tablet 15 mg PO QAM 12/18/24 01/18/25 History metoprolol succinate 50 mg 50 mg PO QAM 12/18/24 01/18/25 History tablet,extended release 24 hr zolpidem 10 mg tablet 10 mg PO HS PRN Insomnia 12/18/24 01/18/25 History estradiol 0.01% (0.1 mg/gram) 1 applic vaginal UD 01/18/25 01/18/25 History vaginal cream metformin 500 mg tablet,extended 1,000 mg PO PM 01/18/25 01/18/25 History release 24 hr Past Med/Surg History Problem List (Updated 01/18/25 @ 20:55 by TERRENCE Reed) Tobacco use MASHA on CPAP Hypertrophic cardiomyopathy History of ESBL E. coli infection (Acute) Pyelonephritis (Acute) Hyponatremia Sepsis Recurrent UTI Multiple traumatic injuries within prior month History of subarachnoid hemorrhage UTI (urinary tract infection) (Acute) SIRS (systemic inflammatory response syndrome) (Acute) SOB (shortness of breath) (Acute) COPD exacerbation (Acute) Hypoxia (Acute) Rhinovirus infection (Acute) Pulmonary atelectasis Smoking (Chronic) Syncope Discharge planning issues DVT prophylaxis Status post section (Chronic) Hypertensive heart disease (Chronic) Hypertension (Chronic) COPD (chronic obstructive pulmonary disease) (Chronic) COPD exacerbation (Acute) Influenza A (Acute) Fever (Acute) Rheumatoid arthritis (Chronic) History of ITP (Chronic) Still's disease (Chronic) Type 2 diabetes mellitus (Chronic) Sleep apnea (Chronic) Hypoxia (Acute) Medical History (Updated 01/18/25 @ 20:55 by TERRENCE Reed) Cellulitis of left foot Cellulitis of left lower extremity Hypertension Family History Aunt Breast cancer Grandmother Breast cancer Father Heart disease Social History Smoking Status: Never smoker Tobacco Type: Cigarettes Cigarettes Per Day: 1 pack per day; Second Hand Exposure: No; Do You Dip or Chew Tobacco: No; Hx Alcohol Use: No Hx Substance Use: Yes Last Used Substance: Days (ago) Last Used Substance Other:: medical marijuana card Preferred Language: [place] Communication Ability: Effective Mophead Trimmer And Wrapper Required: No Beliefs That Will Affect Care: None Current Living Situation: Spouse Feels Safe at Home: Yes Assistive Devices: Glasses Review of Systems Review of Systems: All systems reviewed & are unremarkable except as noted in HPI & below Physical Exam Physical Exam: General/Psych: WD/WN, sitting up in bed, NAD, conversing easily Head: normocephalic, atraumatic Eyes: normal inspection, PERRL, conjunctivae pink ENT: external ear and nose normal, oropharynx normal Neck: normal visual inspection, trachea midline, no thyromegaly Respiratory: normal respiratory effort, lungs clear to auscultation, no wh eeze/rales/rhonchi, no accessory muscle use Cardiovascular: tachycardic rate and rhythm, no murmur/rub/gallop Extremities: no cyanosis or clubbing, normal peripheral pulses, no BLE edema Abdomen/GI: normal bowel sounds, soft, tender on palpation of suprapubic region Neurologic/MSK: A+Ox3, motor strength 5/5, moves all extremities Skin: no rashes, normal color, warm and dry Results & Data Results & Data Vital Signs (Past 12 Hours) Vital Signs Temp Pulse Pulse Resp BP BP Pulse Ox 01/18/25 17:32 38.1 C H 01/18/25 17:26 107 H 18 166/94 H 01/18/25 16:40 106 H 01/18/25 15:28 37.6 C H 111 H 18 180/109 H 97 O2 Del Method 01/18/25 17:32 01/18/25 17:26 01/18/25 16:40 01/18/25 15:28 Room Air Laboratory Results Short CBC 01/18/25 Range/Units 16:00 WBC 10.48 (4.8-10.8) K/ul Hgb 15.3 (12.0-16.0) g/dL Hct 44.3 (37.0-47.0) % Plt Count 164 (130-400) K/uL BMP 01/18/25 16:00 Sodium 137 Potassium 3.8 Chloride 104 Carbon Dioxide 26 BUN 8 Creatinine 0.76 Glucose 259 H Calcium 9.3 Liver Function 01/18/25 Range/Units 16:00 Total Bilirubin 0.4 (0.2-1.0) mg/dl AST 14 (13-39) U/L ALT 14 (7-52) U/L Alkaline Phosphatase 107 H (34-104) U/L Albumin 4.3 (3.4-5.0) gm/dl Urine 01/18/25 Range/Units 16:00 Urine Color Yellow Urine Appearance Clear (Clear) Urine pH 8.0 H (4.5-7.5) Ur Specific [place] 1.008 (1.000-1.030) Urine Protein Negative (Negative) Urine Glucose (UA) 1+ H (Negative) I have independently reviewed and interpreted patient's admitting labs including CBC, CMP, ESR, CRP, lactate, lipase, procalcitonin, UA Diagnostic Findings Abdomen/Pelvis CT 01/18/25 15:48 Technique: Axial computed tomography images were obtained of the abdomen and pelvis after the administration of intravenous contrast. Comparison is made to the prior CT dated 05/29/2023. Findings: The liver is overall of normal size, attenuation, and contour with no sign of cirrhosis or significant fatty infiltration. No liver mass lesion is seen. The portal vein is patent. The gallbladder appears unremarkable. No bile duct dilatation is noted. The spleen is of normal size. No focal splenic lesion is evident. The pancreas appears normal with no sign of acute or chronic pancreatitis and no mass lesion noted. The pancreatic duct is of normal caliber. The adrenal glands appear unremarkable. There is a 6 mm calculus in the mid left kidney. There is no hydronephrosis or perinephric stranding. There is mild multifocal diminished renal cortical enhancement bilaterally, suspicious for pyelonephritis The aorta is of normal caliber. No abdominal adenopathy is seen. The stomach appears normal. There is no sign of small bowel obstruction. There is diverticulosis without definite diverticulitis. The appendix appears normal. No free intraperitoneal fluid or air is identified. No distal ureteral or bladder calculi are seen. No bladder mass lesion is evident. The iliac arteries are of normal caliber. No pelvic adenopathy is noted. There are small bilateral inguinal hernias containing only fat The lungs bases appear clear. Mild thoracolumbar degenerative disc disease is seen. There is an old healed fracture of the left inferior pubic ramus. There is bilateral hip osteoarthritis. No focal osseous lesion is seen Impression: 1. Suspected mild bilateral pyelonephritis 2. Nonobstructing left renal calculus 3. Diverticulosis without definite diverticulitis ACT 112: Positive. There are findings on this exam that require communication between the performing entity and the patient following Patient Test Result Information Act ([place] ACT 112) guidelines. Electronically signed by Espinoza Sahu 01-18-2025 5:03 PM Chest X-Ray 01/18/25 15:48 Clinical History: Fever Technique: A frontal view of the chest was obtained Comparison is made to the prior examination dated 12/21/2024 Findings: There are no confluent pulmonary infiltrates. The heart is mildly enlarged. No pleural effusion or pneumothorax is seen. There is suspected mild pulmonary edema No fracture is noted. No foreign body is seen Impression: Cardiomegaly and mild pulmonary edema ACT 112: Positive. There are findings on this exam that require communication between the performing entity and the patient following Patient Test Result Information Act ([place] ACT 112) guidelines. Electronically signed by Espinoza Sahu 01-18-2025 4:16 PM Code Status & VTE Plan Code Status Full Code Supervising Physician Co-Signing Physician Notes Attending addendum: The patient was seen and examined in the emergency room She presents to ER with fever and ongoing urinary symptoms She complained to have some lower abdominal discomfort and generalized weakness Denies any nausea and/or vomiting On examination Lying in bed with some distress in the lower abdomen Noted to have tachycardia, temp of 37.6 and also elevated BP at 166/94 Chest was clear to auscultate bilaterally HeartS1-S2, regular Abdomendistended, soft, tender in hypogastrium and also bilaterally renal angles Extremitiestrace edema bilaterally Her admission labs, and imaging studies reviewed CT of the abdomen showed bilateral pyelonephritis with nonobstructing [place] calculus Given the history of ESBL UTI she was started with intravenous ertapenem and that will be continued intravenously Of note she received a course of Macrobid for UTI as an outpatient that did not show any improvement of her condition Agree with assessment and plan as outlined above by Estefania OCAMPO and take the full responsibility of care in the hospital Total time taken to talk with the patient, examining her,review the chart and planning the care was [address] Natalee Zarate
[2025-01-18] MEDS: SODIUM CHLORIDE 0.9% 1,000 ML IV SCH (19:02)
[2025-01-18] MEDS: NICOTINE 14 MG/24 HR PATCH TD SCH (21:39)
[2025-01-18] MEDS ORDERED: GLUCAGON FOR INJ 1 MG VIAL SQ PRN (22:13)
[2025-01-18] MEDS ORDERED: ALBUTEROL HFA 8 GM INHALER INH PRN (22:13)
[2025-01-18] MEDS ORDERED: ONDANSETRON INJ 2 MG/ML 2 ML VIAL IV PRN (22:13)
[2025-01-18] MEDS ORDERED: DEXTROSE 50% 50 ML SYRINGE IV PRN (22:13)
[2025-01-18] MEDS ORDERED: GLUCOSE 40% GEL 15 GM TUBE PO PRN (22:13)
[2025-01-18] MEDS ORDERED: CARBOHYDRATES FOR HYPOGLYCEMIA PO PRN (22:13)
[2025-01-18] MEDS ORDERED: POLYETHYLENE (MIRALAX) 17 GM PACK PO PRN (22:13)
[2025-01-18] MEDS ORDERED: GLUCOSE 10 TAB/TUBE PO PRN (22:13)
[2025-01-18] MEDS ORDERED: GABAPENTIN 300 MG CAP PO STA (22:36)
[2025-01-18] MEDS: GABAPENTIN 600 MG TAB PO SCH (22:54)
[2025-01-18] MEDS: HEPARIN SOD 5,000 UNIT/0.5 ML VIAL SQ SCH (22:55)
[2025-01-18] MEDS: METOPROLOL SUCC 50MG EXT REL TAB PO STA (22:55)
[2025-01-18] MEDS: ZOLPIDEM TARTRATE 5 MG TAB PO PRN (22:55)
[2025-01-19] MEDS: INSULIN ASPART PER UNIT CHARGE SC SCH (00:12)
[2025-01-19] MEDS: ACETAMINOPHEN 500 MG TAB PO PRN (04:01)
[2025-01-19 06:26] LABS: Hematocrit (blood only) 41.8 % (37.0-47.0); Hemoglobin 14.4 g/dL (12.0-16.0); Mean Corpuscular Hemoglobin 29.7 pg (25.0-34.0); Mean Corpuscular Volume 86.2 fL (80.0-100.0); Platelet Count 158 K/uL (130-400); RDW Standard Deviation 43.7 fL (36.4-46.3); Red Blood Count 4.85 M/uL (4.20-5.40); White Blood Count 10.61 K/ul (4.8-10.8)
[2025-01-19 06:50] LABS: Anion Gap 8.0 (3-11); Blood Urea Nitrogen 6.0 mg/dl (6-23); Calcium 9.1 mg/dl (8.6-10.3); Carbon Dioxide 25.0 mmol/L (21-32); Chloride 108.0 mmol/L (98-107); Creatinine Clr Calc Pharmacy 86.6 ml/min; Glucose 119.0 mg/dl (70-99(Fasting)); Magnesium 1.7 mg/dl (1.7-2.4); Potassium 3.5 mmol/L (3.5-5.1); Sodium 141.0 mmol/L (136-145)
[2025-01-19] MEDS: UMECLIDINIUM/VILANTEROL 62.5/25MCG 7 PUFFS/INHALER INH SCH (07:51)
[2025-01-19] MEDS: ROSUVASTATIN CALCIUM 5 MG TAB PO SCH (07:52)
[2025-01-19] MEDS: FLUTICASONE FUROATE 100MCG 14 PUFFS/INHALER INH SCH (07:52)
[2025-01-19] MEDS: GABAPENTIN 600 MG TAB PO SCH (07:52)
[2025-01-19] MEDS: CHOLECALCIFEROL 25 MCG (1000 UNITS) TAB PO SCH (07:53)
[2025-01-19] MEDS: ASPIRIN 81 MG ECTAB PO SCH (07:53)
[2025-01-19] MEDS: MELOXICAM 7.5 MG TAB PO SCH (07:54)
[2025-01-19] MEDS: VIBEGRON 75 MG TAB PO SCH (07:54)
[2025-01-19] MEDS: REMOVE NICODERM PATCH SCH (08:01)
--- NOTE | 2025-01-19 08:35 | Hospitalist Progress Note ---
Date of Service January 19, 2025 Assessment & Plan (1) Pyelonephritis: (2) History of ESBL E. coli infection: (3) Recurrent UTI: (4) Hypertrophic cardiomyopathy: (5) Hypertension: (6) COPD (chronic obstructive pulmonary disease): (7) Rheumatoid arthritis: (8) MASHA on CPAP: (9) Tobacco use: Plan Per admitting provider w/ addendum: 59 year old female with PMH significant for type 2 diabetes with neuropathy, dyslipidemia, granulomatous lung disease, COPD, MASHA on CPAP, HCM, LVH, hypertension, hepatic steatosis, recurrent UTI, history of TBI, immune thrombocytopenia, rheumatoid arthritis, history of C diff infection, tobacco use disorder who presents to the ED on 01/18/2025 with fever. Bilateral pyelonephritis UTI History of ESBL E Coli UTI Patient presenting with fever and incomplete bladder emptying after recently completing course of Macrobid for E Coli ESBL UTI History of two hospitalizations for sepsis secondary to UTI in November UA+ leuk esterase and WBC CTAP reveals bilateral mild pyelonephritis and a nonobstructing left renal calculus Continue Ertapenem started in ED Follow urine culture Follow blood cultx Possible sepsis Presenting with fever and tachycardia in setting of UTI and pyelonephritis No leukocytosis, negative lactate and procalcitonin Blood cultures pending Antibiotics for UTI and pyelonephritis as above Mixed incontinence Recurrent UTI Following with Urology in [place] Recurrent UTIs likely secondary to incontinence and use of depends - however it seems like not aware of renal stone which could be poss. contributing -> advised pt to cont. to follow up w/ urology as outpt, will have images of CT abd/ pelvis pushed to [employer] system Started Gemtesa on admission (in place of Myrbetriq recommended by Urologist) Type 2 diabetes Hold home oral agents BSG ACHS and SSI while inpatient HCM Hypertension Follows with [place] [facility] clinic and pharmacist Continue Camzyos, metoprolol, lisinopril, rosuvastatin, baby aspirin COPD Does not appear to be in exacerbation Follows with [facility] Pulmonology Continue Trelegy and albuterol PRN Rheumatoid arthritis On Kevzara at home Continue meloxicam and duloxetine MASHA on CPAP CPAP HS Tobacco use disorder Current every day smoker Nicotine patch Counseled on cessation DVT Prophylaxis: SQ Heparin Code Status: FULL CODE - As per discussion at bedside with the patient. PCP: Dr. Raven Agrawal Disposition: med tele Admission and Anticipated Discharge Date Admission Date: January 18, 2025 Subjective Pt seen in follow up Presents w/ fever, hx of recurrent UTIs, hx of ESBL E.coli Now per CT w/ pyelonephritis b/l Outpt pt was on macrobid Ucultx pending, blood cultx pending Currently lying in bed in NAD. says she feels very tired. No chest pain, shortness of breath or abd. pain. Says she has flank pain - which she has had for some time also because of her RA possibly. Says she was seen by urology in [place] recently, and made them aware when she was coming here to the hospital. Discussed w/ RN at the bedside as well. Review of Systems Review of Systems: All systems reviewed & are unremarkable except as noted in Subjective Physical Exam Physical Exam: General/Psych: WD/WN, lying in bed, NAD Head: normocephalic, atraumatic Eyes: normal inspection, PERRL ENT: external ear and nose normal Neck: normal visual inspection Respiratory: normal respiratory effort, lungs clear to auscultation Cardiovascular: rrr Extremities: no BLE edema Abdomen/GI: normal bowel sounds, soft, mildly tender in suprapubic area, + flank pain Neurologic/MSK: Awake, alert, answers appropriately, speech fluent, moves extremities Skin: warm and dry Results & Data Results & Data Vital Signs (Past 12 Hours) Vital Signs Temp Pulse Pulse Pulse Resp BP BP 01/19/25 07:58 36.9 C 78 18 155/81 H 01/19/25 05:33 37.0 C 01/19/25 03:54 38.3 C H 99 H 18 161/83 H 01/18/25 22:35 01/18/25 22:15 37.7 C H 98 H 18 01/18/25 22:08 110 H 01/18/25 21:52 92 H 18 150/95 H 01/18/25 21:28 92 H 18 150/95 H BP Pulse Ox O2 Del Method 01/19/25 07:58 92 Room Air 01/19/25 05:33 01/19/25 03:54 95 Room Air 01/18/25 22:35 Room Air 01/18/25 22:15 163/77 H 94 Room Air 01/18/25 22:08 01/18/25 21:52 96 Room Air 01/18/25 21:28 96 Room Air Laboratory Results 01/19/25 01/19/25 01/18/25 Range/Units 07:55 05:49 22:50 WBC 10.61 (4.8-10.8) K/ul RBC 4.85 (4.20-5.40) M/uL Hgb 14.4 (12.0-16.0) g/dL POC Hgb (12.0-16.0) g/dl Hct 41.8 (37.0-47.0) % POC Hct (37-47) % MCV 86.2 (80.0-100.0) fL MCH 29.7 (25.0-34.0) pg MCHC 34.4 (32.0-36.0) g/dL RDW Std Deviation 43.7 (36.4-46.3) fL RDW Coeff of Chidi 13.9 (11.5-14.5) % Plt Count 158 (130-400) K/uL MPV 9.9 (9.4-12.4) fL Immature Gran % (Auto) % Neut % (Auto) % Lymph % (Auto) % [place] % (Auto) % Eos % (Auto) % Baso % (Auto) % Neut # (Auto) (1.40-6.50) K/uL Lymph # (Auto) (1.20-3.40) K/uL [place] # (Auto) (0.11-0.59) K/uL Eos # (Auto) (0.00-0.50) K/uL Baso # (Auto) (0.00-0.20) K/uL Immature Gran # (Auto) (0.01-0.20) K/uL ESR (0-30) mm/hr POC Sodium (135-144) mmol/L Sodium 141 (136-145) mmol/L POC Potassium (3.3-5.0) mmol/L Potassium 3.5 (3.5-5.1) mmol/L POC Chloride (101-112) mmol/L Chloride 108 H (98-107) mmol/L Carbon Dioxide 25 (21-32) mmol/L POC Total CO2 (24-31) mmol/L Anion Gap 8 (3-11) POC Anion Gap (16-25) mmol/L POC BUN (7-18) mg/dl BUN 6 (6-23) mg/dl Creatinine 0.68 (0.6-1.2) mg/dl POC Creatinine (0.6-1.3) mg/dl Est Cr Clr Drug Dosing 86.6 ml/min eGFR 100.89 BUN/Creatinine Ratio 8.8 L (10-20) Glucose 119 H (70-99(Fasting)) mg/dl POC Glucose 134 H 91 (70-99) mg/dl POC Glucose (other) (70-99) mg/dl Lactate (0.4-2.0) mmol/L Calcium 9.1 (8.6-10.3) mg/dl POC Ioniz Calcium Steve (1.12-1.32) mmol/l Phosphorus 3.4 (2.5-4.9) mg/dl Magnesium 1.7 (1.7-2.4) mg/dl Total Bilirubin (0.2-1.0) mg/dl AST (13-39) U/L ALT (7-52) U/L Alkaline Phosphatase (34-104) U/L C-Reactive Protein (0-0.5) mg/dl Total Protein (6.0-8.3) gm/dl Albumin (3.4-5.0) gm/dl Globulin (2.5-4.0) gm/dl Albumin/Globulin Ratio (0.9-2) Lipase (11-82) U/L Procalcitonin (0-0.5) ng/ml Urine Color Urine Appearance (Clear) Urine pH (4.5-7.5) Ur Specific [place] (1.000-1.030) Urine Protein (Negative) Urine Glucose (UA) (Negative) Urine Ketones (Negative) Urine Blood (Negative) Urine Nitrite (Negative) Urine Bilirubin (Negative) Urine Urobilinogen (Negative) Ur Leukocyte Esterase (Negative) Urine WBC (Auto) (0-5) /hpf Urine RBC (Auto) (0-2) /hpf U Hyaline Cast (Auto) (0-2) /lpf U Epithel Cells (Auto) (0-2) /hpf Urine Bacteria (Auto) (None Seen) Urine Comment 01/18/25 01/18/25 Range/Units 16:04 16:00 WBC 10.48 (4.8-10.8) K/ul RBC 5.12 (4.20-5.40) M/uL Hgb 15.3 (12.0-16.0) g/dL POC Hgb 15.6 (12.0-16.0) g/dl Hct 44.3 (37.0-47.0) % POC Hct 46 (37-47) % MCV 86.5 (80.0-100.0) fL MCH 29.9 (25.0-34.0) pg MCHC 34.5 (32.0-36.0) g/dL RDW Std Deviation 43.6 (36.4-46.3) fL RDW Coeff of Chidi 13.9 (11.5-14.5) % Plt Count 164 (130-400) K/uL MPV 10.1 (9.4-12.4) fL Immature Gran % (Auto) 0.4 % Neut % (Auto) 73.2 % Lymph % (Auto) 15.6 % [place] % (Auto) 9.2 % Eos % (Auto) 1.3 % Baso % (Auto) 0.3 % Neut # (Auto) 7.68 H (1.40-6.50) K/uL Lymph # (Auto) 1.63 (1.20-3.40) K/uL [place] # (Auto) 0.96 H (0.11-0.59) K/uL Eos # (Auto) 0.14 (0.00-0.50) K/uL Baso # (Auto) 0.03 (0.00-0.20) K/uL Immature Gran # (Auto) 0.04 (0.01-0.20) K/uL ESR 22 (0-30) mm/hr POC Sodium 139 (135-144) mmol/L Sodium 137 (136-145) mmol/L POC Potassium 3.8 (3.3-5.0) mmol/L Potassium 3.8 (3.5-5.1) mmol/L POC Chloride 100 L (101-112) mmol/L Chloride 104 (98-107) mmol/L Carbon Dioxide 26 (21-32) mmol/L POC Total CO2 25 (24-31) mmol/L Anion Gap 7 (3-11) POC Anion Gap 19.0 (16-25) mmol/L POC BUN 7 (7-18) mg/dl BUN 8 (6-23) mg/dl Creatinine 0.76 (0.6-1.2) mg/dl POC Creatinine 0.8 (0.6-1.3) mg/dl Est Cr Clr Drug Dosing 77.7 ml/min eGFR 90.77 BUN/Creatinine Ratio 10.5 (10-20) Glucose 259 H (70-99(Fasting)) mg/dl POC Glucose (70-99) mg/dl POC Glucose (other) 249 H (70-99) mg/dl Lactate 1.9 (0.4-2.0) mmol/L Calcium 9.3 (8.6-10.3) mg/dl POC Ioniz Calcium Steve 1.10 L (1.12-1.32) mmol/l Phosphorus (2.5-4.9) mg/dl Magnesium (1.7-2.4) mg/dl Total Bilirubin 0.4 (0.2-1.0) mg/dl AST 14 (13-39) U/L ALT 14 (7-52) U/L Alkaline Phosphatase 107 H (34-104) U/L C-Reactive Protein 1.79 H (0-0.5) mg/dl Total Protein 6.9 (6.0-8.3) gm/dl Albumin 4.3 (3.4-5.0) gm/dl Globulin 2.6 (2.5-4.0) gm/dl Albumin/Globulin Ratio 1.7 (0.9-2) Lipase 31 (11-82) U/L Procalcitonin 0.06 (0-0.5) ng/ml Urine Color Yellow Urine Appearance Clear (Clear) Urine pH 8.0 H (4.5-7.5) Ur Specific [place] 1.008 (1.000-1.030) Urine Protein Negative (Negative) Urine Glucose (UA) 1+ H (Negative) Urine Ketones Negative (Negative) Urine Blood Trace H (Negative) Urine Nitrite Negative (Negative) Urine Bilirubin Negative (Negative) Urine Urobilinogen Negative (Negative) Ur Leukocyte Esterase 3+ H (Negative) Urine WBC (Auto) >50 H (0-5) /hpf Urine RBC (Auto) 0-2 (0-2) /hpf U Hyaline Cast (Auto) 0-2 (0-2) /lpf U Epithel Cells (Auto) 0-2 (0-2) /hpf Urine Bacteria (Auto) None Seen (None Seen) Urine Comment Medications Administered Current Inpatient Medications Acetaminophen (Acetaminophen 500 Mg Tab) 1,000 mg PO Q8 PRN PRN Reason: pain/fever Stop: 02/17/25 22:12 Last Admin: 01/19/25 04:01 Dose: 1,000 mg Albuterol (Albuterol Hfa 8 Gm Inhaler) 2 puffs INH Q4H PRN PRN Reason: SOB/Wheezing Stop: 02/17/25 22:12 Allopurinol (Allopurinol 100 Mg Tab) 100 mg PO QAM JANNET Stop: 02/18/25 08:59 Last Admin: 01/19/25 07:55 Dose: 100 mg Aspirin (Aspirin 81 Mg Ectab) 81 mg PO DAILY JANNET Stop: 02/18/25 08:59 Last Admin: 01/19/25 07:53 Dose: 81 mg Dextrose (Dextrose 50% 50 Ml Syringe) 25 - 50 ml IV UD PRN; Protocol PRN Reason: Hypoglycemia Protocol Stop: 02/17/25 22:12 Duloxetine HCl (Duloxetine Hcl 60 Mg Cap) 60 mg PO QAM JANNET Stop: 02/18/25 08:59 Last Admin: 01/19/25 07:53 Dose: 60 mg Fluticasone Furoate (Fluticasone Furoate 100mcg 14 Puffs/Inhaler) 1 puffs INH DAILY JANNET Stop: 02/18/25 08:59 Last Admin: 01/19/25 07:52 Dose: 1 puffs Gabapentin (Gabapentin 600 Mg Tab) 900 mg PO DAILY@1200,2100 [facility] Stop: 02/17/25 22:12 Last Admin: 01/18/25 22:54 Dose: 900 mg Gabapentin (Gabapentin 600 Mg Tab) 600 mg PO QAM JANNET Stop: 02/18/25 08:59 Last Admin: 01/19/25 07:52 Dose: 600 mg Glucagon (Glucagon For Inj 1 Mg Vial) 1 mg SQ UD PRN; Protocol PRN Reason: Hypoglycemia Protocol Stop: 02/17/25 22:12 Glucose (Glucose 40% Gel 15 Gm Tube) 15 - 30 gm PO UD PRN; Protocol PRN Reason: Hypoglycemia Protocol Stop: 02/17/25 22:12 Glucose (Glucose 10 Tab/Tube) 4 - 8 tab PO UD PRN; Protocol PRN Reason: Hypoglycemia Protocol Stop: 02/17/25 22:12 Heparin Sodium (Porcine) (Heparin Sod 5,000 Unit/0.5 Ml Vial) 5,000 units SQ Q12 JANNET Stop: 02/17/25 22:12 Last Admin: 01/19/25 08:01 Dose: 5,000 units Ertapenem (Invanz 1000mg) 1,000 mg in 10 mls @ 2 mls/min IV Q24H [facility] Stop: 01/26/25 15:59 Magnesium Sulfate/Dextrose (Magnesium Sulfate / D5w) 1 gm in 100 mls @ 50 mls/hr IV ONE ONE Stop: 01/19/25 10:29 Insulin Aspart (Insulin Aspart Per Unit Charge) 0 units SC [facility]; Protocol Stop: 02/17/25 22:12 Last Admin: 01/19/25 00:12 Dose: Not Given Lisinopril (Lisinopril 10 Mg Tab) 10 mg PO QAM [facility] Stop: 02/18/25 08:59 Last Admin: 01/19/25 07:54 Dose: 10 mg Meloxicam (Meloxicam 7.5 Mg Tab) 15 mg PO QAM [facility] Stop: 02/18/25 08:59 Last Admin: 01/19/25 07:54 Dose: 15 mg Metoprolol Succinate (Metoprolol Succ 50mg Ext Rel Tab) 50 mg PO QPM [facility] Stop: 02/18/25 20:59 Miscellaneous (Remove Nicoderm Patch) 1 each N/A DAILY@0859 [facility] Stop: 02/18/25 08:58 Last Admin: 01/19/25 08:01 Dose: 1 each Miscellaneous (Carbohydrates For Hypoglycemia ) 15 - 30 gm PO UD PRN PRN Reason: Hypoglycemia Protocol Stop: 02/17/25 22:12 Nicotine (Nicotine 14 Mg/24 Hr Patch) [facility]: 02/17/25 20:54 Last Admin: 01/18/25 21:39 Dose: 1 patch Mavacamten [Camzyos] : Non-Form Pt Own Med 1 each PO QAM [facility] Stop: 02/18/25 08:59 Last Admin: 01/19/25 07:55 Dose: 10 mg Ondansetron HCl (Ondansetron Inj 2 Mg/Ml 2 Ml Vial) 4 mg IV Q6H PRN PRN Reason: Nausea Stop: 02/17/25 22:12 Polyethylene Glycol (Polyethylene (Miralax) 17 Gm Pack) 17 gm PO DAILY PRN PRN Reason: Constipation Stop: 02/17/25 22:12 Rosuvastatin Calcium (Rosuvastatin Calcium 5 Mg Tab) 15 mg PO DAILY JANNET Stop: 02/18/25 08:59 Last Admin: 01/19/25 07:52 Dose: 15 mg Umeclidinium/Vilanterol (Umeclidinium/Vilanterol 62.5/25mcg 7 Puffs/Inhaler) 1 puffs INH DAILY JANNET Stop: 02/18/25 08:59 Last Admin: 01/19/25 07:51 Dose: 1 puffs Vibegron (Vibegron 75 Mg Tab) 75 mg PO DAILY JANNET Stop: 02/18/25 08:59 Last Admin: 01/19/25 07:54 Dose: 75 mg Vitamin D (Cholecalciferol 25 Mcg (1000 Units) Tab) 50 mcg PO DAILY JANNET Stop: 02/18/25 08:59 Last Admin: 01/19/25 07:53 Dose: 50 mcg Zolpidem Tartrate (Zolpidem Tartrate 5 Mg Tab) 10 mg PO HS PRN PRN Reason: Insomnia Stop: 02/17/25 22:12 Last Admin: 01/18/25 22:55 Dose: 10 mg
[2025-01-19] MEDS ORDERED: METOPROLOL SUCC 50MG EXT REL TAB PO SCH (09:00)
[2025-01-19] MEDS ORDERED: NON-FORMULARY MEDICATION (Fluticasone-Umeclidin-Vilanter [Trelegy Ellipta] 100-62.5-25 mcg INH SCH (09:00)
[2025-01-19] MEDS: POTASSIUM CHLORIDE CRTAB 20 MEQ TABCR PO STA (09:30)
[2025-01-19] MEDS: MAGNESIUM SULFATE / D5W 1 GM/100 ML BAG IV ONE (09:30)
[2025-01-19] MEDS: ERTAPENEM 1000MG 1,000 MG/10 ML SYR IV SCH (17:42)
[2025-01-19] MEDS: METOPROLOL SUCC 50MG EXT REL TAB PO SCH (21:17)
[2025-01-20 07:22] LABS: Hematocrit (blood only) 45.2 % (37.0-47.0); Hemoglobin 15.3 g/dL (12.0-16.0); Mean Corpuscular Hemoglobin 29.1 pg (25.0-34.0); Mean Corpuscular Volume 85.9 fL (80.0-100.0); Platelet Count 150 K/uL (130-400); RDW Standard Deviation 43.4 fL (36.4-46.3); Red Blood Count 5.26 M/uL (4.20-5.40); White Blood Count 5.78 K/ul (4.8-10.8)
[2025-01-20 07:51] LABS: Anion Gap 8.0 (3-11); Blood Urea Nitrogen 10.0 mg/dl (6-23); Calcium 9.0 mg/dl (8.6-10.3); Carbon Dioxide 25.0 mmol/L (21-32); Chloride 108.0 mmol/L (98-107); Creatinine Clr Calc Pharmacy 80.7 ml/min; Glucose 153.0 mg/dl (70-99(Fasting)); Magnesium 1.8 mg/dl (1.7-2.4); Potassium 3.7 mmol/L (3.5-5.1); Sodium 141.0 mmol/L (136-145)
[2025-01-20] MEDS: MAGNESIUM SULFATE / D5W 1 GM/100 ML BAG IV ONE (08:21)
[2025-01-20] MEDS: POTASSIUM CHLORIDE CRTAB 20 MEQ TABCR PO STA (08:21)
--- NOTE | 2025-01-20 14:04 | Hospitalist Progress Note ---
Date of Service January 20, 2025 Assessment & Plan (1) Pyelonephritis: (2) History of ESBL E. coli infection: (3) Recurrent UTI: (4) Hypertrophic cardiomyopathy: (5) Hypertension: (6) COPD (chronic obstructive pulmonary disease): (7) Rheumatoid arthritis: (8) MASHA on CPAP: (9) Tobacco use: Plan Per admitting provider w/ addendum: 59 year old female with PMH significant for type 2 diabetes with neuropathy, dyslipidemia, granulomatous lung disease, COPD, MASHA on CPAP, HCM, LVH, hypertension, hepatic steatosis, recurrent UTI, history of TBI, immune thrombocytopenia, rheumatoid arthritis, history of C diff infection, tobacco use disorder who presents to the ED on 01/18/2025 with fever. Bilateral pyelonephritis UTI History of ESBL E Coli UTI Patient presenting with fever and incomplete bladder emptying after recently completing course of Macrobid for E Coli ESBL UTI History of two hospitalizations for sepsis secondary to UTI in November UA+ leuk esterase and WBC CTAP reveals bilateral mild pyelonephritis and a nonobstructing left renal calculus Continue Ertapenem started in ED Urine culture - posit. for ESBL E.coli, final results pending Blood cultx - negat. in 24 hrs Possible sepsis Presenting with fever and tachycardia in setting of UTI and pyelonephritis No leukocytosis, negative lactate and procalcitonin Blood cultures pending Antibiotics for UTI and pyelonephritis as above Mixed incontinence Recurrent UTI Following with Urology in [place] Recurrent UTIs likely secondary to incontinence and use of depends - however it seems like not aware of renal stone which could be poss. contributing -> advised pt to cont. to follow up w/ urology as outpt, also asked for the images of CT abd/ pelvis pushed to [employer] system Started Gemtesa on admission (in place of Myrbetriq recommended by Urologist) Type 2 diabetes Hold home oral agents BSG ACHS and SSI while inpatient HCM Hypertension Follows with [place] [facility] clinic and pharmacist Continue Camzyos, metoprolol, lisinopril, rosuvastatin, baby aspirin COPD Does not appear to be in exacerbation Follows with [facility] Pulmonology Continue Trelegy and albuterol PRN Rheumatoid arthritis On Kevzara at home Continue meloxicam and duloxetine MASHA on CPAP CPAP HS Tobacco use disorder Current every day smoker Nicotine patch Counseled on cessation DVT Prophylaxis: SQ Heparin Code Status: FULL CODE - As per discussion at bedside with the patient. PCP: Dr. Raven Agrawal Disposition: med tele Admission and Anticipated Discharge Date Admission Date: January 18, 2025 Subjective Pt seen in follow up Presents w/ fever, hx of recurrent UTIs, hx of ESBL E.coli Now per CT w/ pyelonephritis b/l Outpt pt was on macrobid Ucultx with ESBL E.coli, final results pending, blood cultx negat. in 24 hrs Currently lying in bed in NAD. says she feels very tired. No chest pain, shortness of breath or abd. pain. Says she has flank pain - which she has had for some time also because of her RA possibly. Says she was seen by urology in [place] recently, and made them aware when she was coming here to the hospital. Discussed w/ RN at the bedside as well. Review of Systems Review of Systems: All systems reviewed & are unremarkable except as noted in Subjective Physical Exam Physical Exam: General/Psych: WD/WN, lying in bed, NAD Head: normocephalic, atraumatic Eyes: normal inspection, PERRL ENT: external ear and nose normal Neck: normal visual inspection Respiratory: normal respiratory effort, lungs clear to auscultation Cardiovascular: rrr Extremities: no BLE edema Abdomen/GI: normal bowel sounds, soft, nontender in suprapubic area (resolved), flank pain resolved Neurologic/MSK: Awake, alert, answers appropriately, speech fluent, moves extremities Skin: warm and dry Results & Data Results & Data Vital Signs (Past 12 Hours) Vital Signs Temp Pulse Pulse Resp BP BP Pulse Ox 01/20/25 12:09 37.0 C 88 18 148/86 H 92 01/20/25 08:32 36.5 C 86 19 144/80 H 90 01/20/25 08:00 87 01/20/25 07:41 36.5 C 77 18 159/95 H 90 01/20/25 07:30 01/20/25 02:49 128/86 01/20/25 02:06 37.2 C 89 16 160/104 H 92 O2 Del Method 01/20/25 12:09 Room Air 01/20/25 08:32 Room Air 01/20/25 08:00 01/20/25 07:41 Room Air 01/20/25 07:30 Room Air 01/20/25 02:49 01/20/25 02:06 Room Air Laboratory Results 01/20/25 01/20/25 01/20/25 Range/Units 11:34 08:10 06:40 WBC 5.78 (4.8-10.8) K/ul RBC 5.26 (4.20-5.40) M/uL Hgb 15.3 (12.0-16.0) g/dL Hct 45.2 (37.0-47.0) % MCV 85.9 (80.0-100.0) fL MCH 29.1 (25.0-34.0) pg MCHC 33.8 (32.0-36.0) g/dL RDW Std Deviation 43.4 (36.4-46.3) fL RDW Coeff of Chidi 13.9 (11.5-14.5) % Plt Count 150 (130-400) K/uL MPV 9.9 (9.4-12.4) fL Sodium 141 (136-145) mmol/L Potassium 3.7 (3.5-5.1) mmol/L Chloride 108 H (98-107) mmol/L Carbon Dioxide 25 (21-32) mmol/L Anion Gap 8 (3-11) BUN 10 (6-23) mg/dl Creatinine 0.73 (0.6-1.2) mg/dl Est Cr Clr Drug Dosing 80.7 ml/min eGFR 95.27 BUN/Creatinine Ratio 13.7 (10-20) Glucose 153 H (70-99(Fasting)) mg/dl POC Glucose 284 H 166 H (70-99) mg/dl Calcium 9.0 (8.6-10.3) mg/dl Phosphorus 3.9 (2.5-4.9) mg/dl Magnesium 1.8 (1.7-2.4) mg/dl 01/19/25 01/19/25 Range/Units 20:19 16:58 WBC (4.8-10.8) K/ul RBC (4.20-5.40) M/uL Hgb (12.0-16.0) g/dL Hct (37.0-47.0) % MCV (80.0-100.0) fL MCH (25.0-34.0) pg MCHC (32.0-36.0) g/dL RDW Std Deviation (36.4-46.3) fL RDW Coeff of Chidi (11.5-14.5) % Plt Count (130-400) K/uL MPV (9.4-12.4) fL Sodium (136-145) mmol/L Potassium (3.5-5.1) mmol/L Chloride (98-107) mmol/L Carbon Dioxide (21-32) mmol/L Anion Gap (3-11) BUN (6-23) mg/dl Creatinine (0.6-1.2) mg/dl Est Cr Clr Drug Dosing ml/min eGFR BUN/Creatinine Ratio (10-20) Glucose (70-99(Fasting)) mg/dl POC Glucose 179 H 197 H (70-99) mg/dl Calcium (8.6-10.3) mg/dl Phosphorus (2.5-4.9) mg/dl Magnesium (1.7-2.4) mg/dl Medications Administered Current Inpatient Medications Acetaminophen (Acetaminophen 500 Mg Tab) 1,000 mg PO Q8 PRN PRN Reason: pain/fever Stop: 02/17/25 22:12 Last Admin: 01/20/25 00:27 Dose: 1,000 mg Albuterol (Albuterol Hfa 8 Gm Inhaler) 2 puffs INH Q4H PRN PRN Reason: SOB/Wheezing Stop: 02/17/25 22:12 Allopurinol (Allopurinol 100 Mg Tab) 100 mg PO QAM JANNET Stop: 02/18/25 08:59 Last Admin: 01/20/25 07:21 Dose: 100 mg Aspirin (Aspirin 81 Mg Ectab) 81 mg PO DAILY JANNET Stop: 02/18/25 08:59 Last Admin: 01/20/25 07:21 Dose: 81 mg Dextrose (Dextrose 50% 50 Ml Syringe) 25 - 50 ml IV UD PRN; Protocol PRN Reason: Hypoglycemia Protocol Stop: 02/17/25 22:12 Duloxetine HCl (Duloxetine Hcl 60 Mg Cap) 60 mg PO QAM JANNET Stop: 02/18/25 08:59 Last Admin: 01/20/25 07:22 Dose: 60 mg Fluticasone Furoate (Fluticasone Furoate 100mcg 14 Puffs/Inhaler) 1 puffs INH DAILY JANNET Stop: 02/18/25 08:59 Last Admin: 01/20/25 07:18 Dose: 1 puffs Gabapentin (Gabapentin 600 Mg Tab) 900 mg PO DAILY@1200,2100 [facility] Stop: 02/17/25 22:12 Last Admin: 01/20/25 12:59 Dose: 900 mg Gabapentin (Gabapentin 600 Mg Tab) 600 mg PO QAM [facility] Stop: 02/18/25 08:59 Last Admin: 01/20/25 07:19 Dose: 600 mg Glucagon (Glucagon For Inj 1 Mg Vial) 1 mg SQ UD PRN; Protocol PRN Reason: Hypoglycemia Protocol Stop: 02/17/25 22:12 Glucose (Glucose 40% Gel 15 Gm Tube) 15 - 30 gm PO UD PRN; Protocol PRN Reason: Hypoglycemia Protocol Stop: 02/17/25 22:12 Glucose (Glucose 10 Tab/Tube) 4 - 8 tab PO UD PRN; Protocol PRN Reason: Hypoglycemia Protocol Stop: 02/17/25 22:12 Heparin Sodium (Porcine) (Heparin Sod 5,000 Unit/0.5 Ml Vial) 5,000 units SQ Q12 JANNET Stop: 02/17/25 22:12 Last Admin: 01/20/25 07:17 Dose: 5,000 units Ertapenem (Invanz 1000mg) 1,000 mg in 10 mls @ 2 mls/min IV Q24H JANNET Stop: 01/26/25 15:59 Last Admin: 01/19/25 17:42 Dose: 2 mls/min Insulin Aspart (Insulin Aspart Per Unit Charge) 0 units SC ACHS [facility]; Protocol Stop: 02/17/25 22:12 Last Admin: 01/20/25 12:58 Dose: 10 units Lisinopril (Lisinopril 10 Mg Tab) 10 mg PO QAM JANNET Stop: 02/18/25 08:59 Last Admin: 01/20/25 07:20 Dose: 10 mg Meloxicam (Meloxicam 7.5 Mg Tab) 15 mg PO QAM [facility] Stop: 02/18/25 08:59 Last Admin: 01/20/25 07:20 Dose: 15 mg Metoprolol Succinate (Metoprolol Succ 50mg Ext Rel Tab) 50 mg PO QPM JANNET Stop: 02/18/25 20:59 Last Admin: 01/19/25 21:17 Dose: 50 mg Miscellaneous (Remove Nicoderm Patch) 1 each N/A DAILY@0859 [facility] Stop: 02/18/25 08:58 Last Admin: 01/20/25 07:22 Dose: 1 each Miscellaneous (Carbohydrates For Hypoglycemia ) 15 - 30 gm PO UD PRN PRN Reason: Hypoglycemia Protocol Stop: 02/17/25 22:12 Nicotine (Nicotine 14 Mg/24 Hr Patch) 1 patch TD QAM [facility] Stop: 02/17/25 20:54 Last Admin: 01/20/25 07:22 Dose: 1 patch Tarun [Adelsoyos] : Non-Form Pt Own Med 1 each PO QAM JANNET Stop: 02/18/25 08:59 Last Admin: 01/20/25 07:18 Dose: 10 mg Ondansetron HCl (Ondansetron Inj 2 Mg/Ml 2 Ml Vial) 4 mg IV Q6H PRN PRN Reason: Nausea Stop: 02/17/25 22:12 Polyethylene Glycol (Polyethylene (Miralax) 17 Gm Pack) 17 gm PO DAILY PRN PRN Reason: Constipation Stop: 02/17/25 22:12 Rosuvastatin Calcium (Rosuvastatin Calcium 5 Mg Tab) 15 mg PO DAILY JANNET Stop: 02/18/25 08:59 Last Admin: 01/20/25 07:20 Dose: 15 mg Umeclidinium/Vilanterol (Umeclidinium/Vilanterol 62.5/25mcg 7 Puffs/Inhaler) 1 puffs INH DAILY JANNET Stop: 02/18/25 08:59 Last Admin: 01/20/25 07:19 Dose: 1 puffs Vibegron (Vibegron 75 Mg Tab) 75 mg PO DAILY JANNET Stop: 02/18/25 08:59 Last Admin: 01/20/25 07:21 Dose: 75 mg Vitamin D (Cholecalciferol 25 Mcg (1000 Units) Tab) 50 mcg PO DAILY JANNET Stop: 02/18/25 08:59 Last Admin: 01/20/25 07:21 Dose: 50 mcg Zolpidem Tartrate (Zolpidem Tartrate 5 Mg Tab) 10 mg PO HS PRN PRN Reason: Insomnia Stop: 02/17/25 22:12 Last Admin: 01/20/25 00:27 Dose: 10 mg
[2025-01-21 06:52] LABS: Hematocrit (blood only) 46.5 % (37.0-47.0); Hemoglobin 15.5 g/dL (12.0-16.0); Mean Corpuscular Hemoglobin 28.9 pg (25.0-34.0); Mean Corpuscular Volume 86.8 fL (80.0-100.0); Platelet Count 169 K/uL (130-400); RDW Standard Deviation 43.2 fL (36.4-46.3); Red Blood Count 5.36 M/uL (4.20-5.40); White Blood Count 5.64 K/ul (4.8-10.8)
[2025-01-21 07:05] LABS: Anion Gap 8.0 (3-11); Blood Urea Nitrogen 15.0 mg/dl (6-23); Calcium 9.2 mg/dl (8.6-10.3); Carbon Dioxide 25.0 mmol/L (21-32); Chloride 107.0 mmol/L (98-107); Creatinine Clr Calc Pharmacy 77.5 ml/min; Glucose 213.0 mg/dl (70-99(Fasting)); Magnesium 2.0 mg/dl (1.7-2.4); Potassium 4.2 mmol/L (3.5-5.1); Sodium 140.0 mmol/L (136-145)
--- NOTE | 2025-01-21 08:01 | Hospitalist Progress Note ---
Date of Service January 21, 2025 Assessment & Plan (1) Pyelonephritis: (2) History of ESBL E. coli infection: (3) Recurrent UTI: (4) Hypertrophic cardiomyopathy: (5) Hypertension: (6) COPD (chronic obstructive pulmonary disease): (7) Rheumatoid arthritis: (8) MASHA on CPAP: (9) Tobacco use: Plan Per admitting provider w/ addendum: 59 year old female with PMH significant for type 2 diabetes with neuropathy, dyslipidemia, granulomatous lung disease, COPD, MASHA on CPAP, HCM, LVH, hypertension, hepatic steatosis, recurrent UTI, history of TBI, immune thrombocytopenia, rheumatoid arthritis, history of C diff infection, tobacco use disorder who presents to the ED on 01/18/2025 with fever. Bilateral pyelonephritis UTI History of ESBL E Coli UTI Patient presenting with fever and incomplete bladder emptying after recently completing course of Macrobid for E Coli ESBL UTI History of two hospitalizations for sepsis secondary to UTI in November UA+ leuk esterase and WBC CTAP reveals bilateral mild pyelonephritis and a nonobstructing left renal calculus Continue Ertapenem started in ED Urine culture - posit. for ESBL E.coli, Pseudomonas - added Levaquin (can't add cipro d/t duloxetine - discussed w/ pharmacy). Will consult w/ ID. Blood cultx - negat. in 48 hrs Possible sepsis Presenting with fever and tachycardia in setting of UTI and pyelonephritis No leukocytosis, negative lactate and procalcitonin Blood cultures pending Antibiotics for UTI and pyelonephritis as above Mixed incontinence Recurrent UTI Following with Urology in [place] Recurrent UTIs likely secondary to incontinence and use of depends - however it seems like not aware of renal stone which could be poss. contributing -> advised pt to cont. to follow up w/ urology as outpt, also asked for the images of CT abd/ pelvis pushed to [facility] system Started Gemtesa on admission (in place of Myrbetriq recommended by Urologist) Type 2 diabetes Hold home oral agents BSG ACHS and SSI while inpatient HCM Hypertension Follows with [place] [facility] clinic and pharmacist Continue Camzyos, metoprolol, lisinopril, rosuvastatin, baby aspirin COPD Does not appear to be in exacerbation Follows with [facility] Continue Trelegy and albuterol PRN Rheumatoid arthritis On Kevzara at home Continue meloxicam and duloxetine MASHA on CPAP CPAP HS Tobacco use disorder Current every day smoker Nicotine patch Counseled on cessation DVT Prophylaxis: SQ Heparin Code Status: FULL CODE - As per discussion at bedside with the patient. PCP: Dr. Raven Agrawal Disposition: med tele Admission and Anticipated Discharge Date Admission Date: January 18, 2025 Subjective Pt seen in follow up Presents w/ fever, hx of recurrent UTIs, hx of ESBL E.coli Now per CT w/ pyelonephritis b/l Outpt pt was on macrobid Ucultx with ESBL E.coli, Pseudomonas, blood cultx negat. in 48 hrs Currently lying in bed in NAD. says she feels improved. Afebrile. No chest pain, shortness of breath or abd. pain. Says her flank pain is gone. Discussed w/ RN at the bedside as well. Review of Systems Review of Systems: All systems reviewed & are unremarkable except as noted in Subjective Physical Exam Physical Exam: General/Psych: WD/WN, lying in bed, NAD Head: normocephalic, atraumatic Eyes: normal inspection, PERRL ENT: external ear and nose normal Neck: normal visual inspection Respiratory: normal respiratory effort, lungs clear to auscultation Cardiovascular: rrr Extremities: no BLE edema Abdomen/GI: normal bowel sounds, soft, nontender in suprapubic area (resolved), flank pain resolved Neurologic/MSK: Awake, alert, answers appropriately, speech fluent, moves extremities Skin: warm and dry Results & Data Results & Data Vital Signs (Past 12 Hours) Vital Signs Temp Pulse Resp BP BP Pulse Ox O2 Del Method 01/21/25 04:00 36.7 C 70 18 115/77 90 Room Air 01/20/25 22:00 37.4 C 85 18 151/88 H 93 Room Air 01/20/25 20:30 37.3 C 93 H 16 151/90 H 93 Room Air Laboratory Results 01/21/25 01/21/25 01/20/25 Range/Units 07:40 06:18 20:48 WBC 5.64 (4.8-10.8) K/ul RBC 5.36 (4.20-5.40) M/uL Hgb 15.5 (12.0-16.0) g/dL Hct 46.5 (37.0-47.0) % MCV 86.8 (80.0-100.0) fL MCH 28.9 (25.0-34.0) pg MCHC 33.3 (32.0-36.0) g/dL RDW Std Deviation 43.2 (36.4-46.3) fL RDW Coeff of Chidi 13.8 (11.5-14.5) % Plt Count 169 (130-400) K/uL MPV 10.1 (9.4-12.4) fL Sodium 140 (136-145) mmol/L Potassium 4.2 (3.5-5.1) mmol/L Chloride 107 (98-107) mmol/L Carbon Dioxide 25 (21-32) mmol/L Anion Gap 8 (3-11) BUN 15 (6-23) mg/dl Creatinine 0.76 (0.6-1.2) mg/dl Est Cr Clr Drug Dosing 77.5 ml/min eGFR 90.77 BUN/Creatinine Ratio 19.7 (10-20) Glucose 213 H (70-99(Fasting)) mg/dl POC Glucose 202 H 219 H (70-99) mg/dl Calcium 9.2 (8.6-10.3) mg/dl Phosphorus 4.2 (2.5-4.9) mg/dl Magnesium 2.0 (1.7-2.4) mg/dl 01/20/25 01/20/25 01/20/25 Range/Units 17:13 11:34 08:10 WBC (4.8-10.8) K/ul RBC (4.20-5.40) M/uL Hgb (12.0-16.0) g/dL Hct (37.0-47.0) % MCV (80.0-100.0) fL MCH (25.0-34.0) pg MCHC (32.0-36.0) g/dL RDW Std Deviation (36.4-46.3) fL RDW Coeff of Chidi (11.5-14.5) % Plt Count (130-400) K/uL MPV (9.4-12.4) fL Sodium (136-145) mmol/L Potassium (3.5-5.1) mmol/L Chloride (98-107) mmol/L Carbon Dioxide (21-32) mmol/L Anion Gap (3-11) BUN (6-23) mg/dl Creatinine (0.6-1.2) mg/dl Est Cr Clr Drug Dosing ml/min eGFR BUN/Creatinine Ratio (10-20) Glucose (70-99(Fasting)) mg/dl POC Glucose 128 H 284 H 166 H (70-99) mg/dl Calcium (8.6-10.3) mg/dl Phosphorus (2.5-4.9) mg/dl Magnesium (1.7-2.4) mg/dl Medications Administered Current Inpatient Medications Acetaminophen (Acetaminophen 500 Mg Tab) 1,000 mg PO Q8 PRN PRN Reason: pain/fever Stop: 02/17/25 22:12 Last Admin: 01/20/25 23:07 Dose: 1,000 mg Albuterol (Albuterol Hfa 8 Gm Inhaler) 2 puffs INH Q4H PRN PRN Reason: SOB/Wheezing Stop: 02/17/25 22:12 Allopurinol (Allopurinol 100 Mg Tab) 100 mg PO QAM JANNET Stop: 02/18/25 08:59 Last Admin: 01/20/25 07:21 Dose: 100 mg Aspirin (Aspirin 81 Mg Ectab) 81 mg PO DAILY JANNET Stop: 02/18/25 08:59 Last Admin: 01/20/25 07:21 Dose: 81 mg Dextrose (Dextrose 50% 50 Ml Syringe) 25 - 50 ml IV UD PRN; Protocol PRN Reason: Hypoglycemia Protocol Stop: 02/17/25 22:12 Duloxetine HCl (Duloxetine Hcl 60 Mg Cap) 60 mg PO QAM JANNET Stop: 02/18/25 08:59 Last Admin: 01/20/25 07:22 Dose: 60 mg Fluticasone Furoate (Fluticasone Furoate 100mcg 14 Puffs/Inhaler) 1 puffs INH DAILY JANNET Stop: 02/18/25 08:59 Last Admin: 01/20/25 07:18 Dose: 1 puffs Gabapentin (Gabapentin 600 Mg Tab) 900 mg PO DAILY@1200,2100 JANNET Stop: 02/17/25 22:12 Last Admin: 01/20/25 22:57 Dose: 900 mg Gabapentin (Gabapentin 600 Mg Tab) 600 mg PO QAM JANNET Stop: 02/18/25 08:59 Last Admin: 01/20/25 07:19 Dose: 600 mg Glucagon (Glucagon For Inj 1 Mg Vial) 1 mg SQ UD PRN; Protocol PRN Reason: Hypoglycemia Protocol Stop: 02/17/25 22:12 Glucose (Glucose 40% Gel 15 Gm Tube) 15 - 30 gm PO UD PRN; Protocol PRN Reason: Hypoglycemia Protocol Stop: 02/17/25 22:12 Glucose (Glucose 10 Tab/Tube) 4 - 8 tab PO UD PRN; Protocol PRN Reason: Hypoglycemia Protocol Stop: 02/17/25 22:12 Heparin Sodium (Porcine) (Heparin Sod 5,000 Unit/0.5 Ml Vial) 5,000 units SQ Q12 JANNET Stop: 02/17/25 22:12 Last Admin: 01/20/25 20:17 Dose: 5,000 units Ertapenem (Invanz 1000mg) 1,000 mg in 10 mls @ 2 mls/min IV Q24H JANNET Stop: 01/26/25 15:59 Last Admin: 01/20/25 16:47 Dose: 2 mls/min Insulin Aspart (Insulin Aspart Per Unit Charge) 0 units SC ACHS [facility]; Protocol Stop: 02/17/25 22:12 Last Admin: 01/20/25 21:13 Dose: 2 units Lisinopril (Lisinopril 10 Mg Tab) 10 mg PO QAM JANNET Stop: 02/18/25 08:59 Last Admin: 01/20/25 07:20 Dose: 10 mg Meloxicam (Meloxicam 7.5 Mg Tab) 15 mg PO QAM [facility] Stop: 02/18/25 08:59 Last Admin: 01/20/25 07:20 Dose: 15 mg Metoprolol Succinate (Metoprolol Succ 50mg Ext Rel Tab) 50 mg PO QPM JANNET Stop: 02/18/25 20:59 Last Admin: 01/20/25 20:24 Dose: 50 mg Miscellaneous (Remove Nicoderm Patch) 1 each N/A DAILY@0859 [facility] Stop: 02/18/25 08:58 Last Admin: 01/20/25 07:22 Dose: 1 each Miscellaneous (Carbohydrates For Hypoglycemia ) 15 - 30 gm PO UD PRN PRN Reason: Hypoglycemia Protocol Stop: 02/17/25 22:12 Nicotine (Nicotine 14 Mg/24 Hr Patch) 1 patch TD QAM [facility] Stop: 02/17/25 20:54 Last Admin: 01/20/25 07:22 Dose: 1 patch Mavacamten [Camzyos] : Non-Form Pt Own Med 1 each PO QAM JANNET Stop: 02/18/25 08:59 Last Admin: 01/20/25 07:18 Dose: 10 mg Ondansetron HCl (Ondansetron Inj 2 Mg/Ml 2 Ml Vial) 4 mg IV Q6H PRN PRN Reason: Nausea Stop: 02/17/25 22:12 Polyethylene Glycol (Polyethylene (Miralax) 17 Gm Pack) 17 gm PO DAILY PRN PRN Reason: Constipation Stop: 02/17/25 22:12 Rosuvastatin Calcium (Rosuvastatin Calcium 5 Mg Tab) 15 mg PO DAILY JANNET Stop: 02/18/25 08:59 Last Admin: 01/20/25 07:20 Dose: 15 mg Umeclidinium/Vilanterol (Umeclidinium/Vilanterol 62.5/25mcg 7 Puffs/Inhaler) 1 puffs INH DAILY JANNET Stop: 02/18/25 08:59 Last Admin: 01/20/25 07:19 Dose: 1 puffs Vibegron (Vibegron 75 Mg Tab) 75 mg PO DAILY JANNET Stop: 02/18/25 08:59 Last Admin: 01/20/25 07:21 Dose: 75 mg Vitamin D (Cholecalciferol 25 Mcg (1000 Units) Tab) 50 mcg PO DAILY JANNET Stop: 02/18/25 08:59 Last Admin: 01/20/25 07:21 Dose: 50 mcg Zolpidem Tartrate (Zolpidem Tartrate 5 Mg Tab) 10 mg PO HS PRN PRN Reason: Insomnia Stop: 02/17/25 22:12 Last Admin: 01/21/25 00:07 Dose: 10 mg
[2025-01-21 19:46] VITALS: RESP 20
[2025-01-21] MEDS: levoFLOXacin 500 MG TAB PO SCH (20:13)
--- NOTE | 2025-01-22 11:10 | Discharge Summary ---
Date of Service January 22, 2025 Admission HPI Per Admitting Provider 59 year old female with PMH significant for type 2 diabetes with neuropathy, dyslipidemia, granulomatous lung disease, COPD, MASHA on CPAP, HCM, LVH, hypertension, hepatic steatosis, recurrent UTI, history of TBI, immune thrombocytopenia, rheumatoid arthritis, history of C diff infection, tobacco use disorder who presents to the ED on 01/18/2025 with fever. Patient reports two recent hospitalizations for sepsis secondary to UTI in November 2024. Received ertapenem and daptomycin and completed two days of amoxicillin on 12/24. She then developed low grade fever and UTI symptoms on 01/07 and sought evaluation at [facility] on 01/09. Outpatient urine culture grew E coli ESBL and she completed a 7 day course of Macrobid ending 01/16. The following day, yesterday 01/17, she developed fever, chills, and incomplete bladder emptying and bladder pressure. Her temp was 101.3. She sought evaluation in the ED today because she was concerned about sepsis again. She denies cough (worse than baseline), chest pain, SOB, abdominal pain, flank pain, N/V/D. Admission Exam Per Admitting Provider General/Psych: WD/WN, sitting up in bed, NAD, conversing easily Head: normocephalic, atraumatic Eyes: normal inspection, PERRL, conjunctivae pink ENT: external ear and nose normal, oropharynx normal Neck: normal visual inspection, trachea midline, no thyromegaly Respiratory: normal respiratory effort, lungs clear to auscultation, no wheeze/rales/rhonchi, no accessory muscle use Cardiovascular: tachycardic rate and rhythm, no murmur/rub/gallop Extremities: no cyanosis or clubbing, normal peripheral pulses, no BLE edema Abdomen/GI: normal bowel sounds, soft, tender on palpation of suprapubic region Neurologic/MSK: A+Ox3, motor strength 5/5, moves all extremities Skin: no rashes, normal color, warm and dry Principal Diagnosis UTI / pyelonephritis Discharge Exam General/Psych: WD/WN, lying in bed, NAD Head: normocephalic, atraumatic Eyes: normal inspection, PERRL ENT: external ear and nose normal Neck: normal visual inspection Respiratory: normal respiratory effort, lungs clear to auscultation Cardiovascular: rrr Extremities: no BLE edema Abdomen/GI: normal bowel sounds, soft, nontender in suprapubic area (resolved), flank pain resolved Neurologic/MSK: Awake, alert, answers appropriately, speech fluent, moves extremities Skin: warm and dry Discharge Data Allergies Allergy/AdvReac Type Severity Reaction Status Date / Time No Known Allergies Allergy Verified 12/24/24 07:53 Consultations 01/18/25 17:54 ED Decision to Admit Stat 01/21/25 20:15 Consult Infectious Diseases Routine Ordered Studies 01/18/25 15:48 CT abd pelvis IV con only Stat Findings: The liver is overall of normal size, attenuation, and contour with no sign of cirrhosis or significant fatty infiltration. No liver mass lesion is seen. The portal vein is patent. The gallbladder appears unremarkable. No bile duct dilatation is noted. The spleen is of normal size. No focal splenic lesion is evident. The pancreas appears normal with no sign of acute or chronic pancreatitis and no mass lesion noted. The pancreatic duct is of normal caliber. The adrenal glands appear unremarkable. There is a 6 mm calculus in the mid left kidney. There is no hydronephrosis or perinephric stranding. There is mild multifocal diminished renal cortical enhancement bilaterally, suspicious for pyelonephritis The aorta is of normal caliber. No abdominal adenopathy is seen. The stomach appears normal. There is no sign of small bowel obstruction. There is diverticulosis without definite diverticulitis. The appendix appears normal. No free intraperitoneal fluid or air is identified. No distal ureteral or bladder calculi are seen. No bladder mass lesion is evident. The iliac arteries are of normal caliber. No pelvic adenopathy is noted. There are small bilateral inguinal hernias containing only fat The lungs bases appear clear. Mild thoracolumbar degenerative disc disease is seen. There is an old healed fracture of the left inferior pubic ramus. There is bilateral hip osteoarthritis. No focal osseous lesion is seen Impression: 1. Suspected mild bilateral pyelonephritis 2. Nonobstructing left renal calculus 3. Diverticulosis without definite diverticulitis Hospital Course (1) Pyelonephritis: (2) History of ESBL E. coli infection: (3) Recurrent UTI: (4) Hypertrophic cardiomyopathy: (5) Hypertension: (6) COPD (chronic obstructive pulmonary disease): (7) Rheumatoid arthritis: (8) MASHA on CPAP: (9) Tobacco use: Plan 59 year old female with PMH significant for type 2 diabetes with neuropathy, dyslipidemia, granulomatous lung disease, COPD, MASHA on CPAP, HCM, LVH, hypertension, hepatic steatosis, recurrent UTI, history of TBI, immune thrombocytopenia, rheumatoid arthritis, history of C diff infection, tobacco use disorder who presents to the ED on 01/18/2025 with fever. Bilateral pyelonephritis UTI History of ESBL E Coli UTI Patient presenting with fever and incomplete bladder emptying after recently completing course of Macrobid for E Coli ESBL UTI History of two hospitalizations for sepsis secondary to UTI in November UA+ leuk esterase and WBC CTAP reveals bilateral mild pyelonephritis and a nonobstructing left renal calculus Continued Ertapenem started in ED Urine culture - posit. for ESBL E.coli, Pseudomonas - added Levaquin (can't add cipro d/t duloxetine - discussed w/ pharmacy). Consulted w/ ID - recommend Levaquin 750 daily for total of 14 days. Blood cultx - negat. in 48 hrs Possible sepsis Presenting with fever and tachycardia in setting of UTI and pyelonephritis No leukocytosis, negative lactate and procalcitonin Blood cultures negat. so far Antibiotics for UTI and pyelonephritis as above Mixed incontinence Recurrent UTI Following with Urology in [place] Recurrent UTIs - presence of renal stone could be poss. contributing -> advised pt to cont. to follow up w/ urology as outpt, also asked for the images of CT abd/ pelvis pushed to [employer] system Started Gemtesa on admission (in place of Myrbetriq recommended by Urologist) Type 2 diabetes Hold home oral agents, resume on DC BSG ACHS and SSI while inpatient HCM Hypertension Follows with [place] [facility] clinic and pharmacist Continue Camzyos, metoprolol, lisinopril, rosuvastatin, baby aspirin COPD Does not appear to be in exacerbation Follows with [facility] Continue Trelegy and albuterol PRN Rheumatoid arthritis On Kevzara at home Continue meloxicam and duloxetine MASHA on CPAP CPAP HS Tobacco use disorder Current every day smoker Nicotine patch Counseled on cessation Total Time Total Time Spent Total Time Spent (In Minutes): 40 Discharge Plan Discharge Items Patient Disposition: Home - Self-Care Reason For Visit: UTI Discharge Diagnosis: UTI / pyelonephritis Condition on Discharge: Fair Activity: Per Instructions section Non-emergency contact: Primary Care Provider Call non-emergency contact if: you have any medication questions and your symptoms worsen Follow-up/Referrals: Raven Agrawal MD [Primary Care Provider] - (Date & Time 01/29/2025 10:40 AM Provider: Anel Warren PA-C General Internal Medicine [facility] ) Diet: Carb Consistent or DM2 Addtl Attending Provider Instructions: Follow up with your primary care physician and urologist. You should be seen by primary care physician within 1 week. Finish antibiotic treatment with Levaquin as prescribed. Pending Studies at Discharge: No Stand-Alone Forms: My [facility] Play[employer], Smoking Cessation Medications and DC Order Prescriptions: New Advanced Probiotic 625 mg (10 billion cell) Capsule 1 cap PO DAILY Qty: 14 0RF levofloxacin 750 mg Tablet 750 mg PO HS Qty: 13 0RF Continued gabapentin 600 mg Tablet 600 mg PO UD Rx Instructions: Take 1 tablet in the morning, 1-1/2 tablet at noon and 1-1/2 tablet before bedtime. rosuvastatin 10 mg tablet 15 mg PO DAILY Kevzara 200 mg/1.14 mL syringe 200 mg SUBCUT UD Rx Instructions: Injection every other week for RA. duloxetine 60 mg capsule,delayed release(DR/EC) 60 mg PO QAM cholecalciferol (vitamin D3) [Vitamin D3] 50 mcg (2,000 unit) Tablet 50 mcg PO DAILY metoprolol succinate 50 mg tablet extended release 24 hr 50 mg PO QAM meloxicam 15 mg tablet 15 mg PO QAM alendronate 70 mg tablet 0 mg PO WK Patient Comments: 01/18- hasnt started it yet glipizide 5 mg tablet extended release 24hr 15 mg PO QAM allopurinol 100 mg tablet 100 mg PO QAM lisinopril 10 mg tablet 10 mg PO QAM albuterol sulfate 90 mcg/actuation HFA aerosol inhaler 2 inh INHALATION Q4H PRN (Reason: SOB/Wheezing) Trelegy Ellipta 100-62.5-25 mcg blister with device 1 inh INHALATION QAM Camzyos 10 mg capsule 10 mg PO QAM aspirin 81 mg Tablet 81 mg PO DAILY zolpidem 10 mg tablet 10 mg PO HS PRN (Reason: Insomnia) estradiol 0.01 % (0.1 mg/gram) cream 1 applic VAGINAL UD Patient Comments: 01/18-was going to start tonight metformin 500 mg tablet extended release 24 hr 1,000 mg PO PM multivitamin Tablet 1 tab PO DAILY Jentadueto XR 5-1,000 mg tablet, IR - ER, biphasic 24hr 1 tab PO QAM Discharge Orders: Discharge Order (Routine); Ordered 01/22/25 Ordered By: Neftali Bell/Other Patient Handouts: Managing Type 2 Diabetes, How to Check Your Blood Sugar Admission Data Admit Date/Time: 01/18/25 18:42 Attending Provider: Neftali Amaral Admit Provider: Pushpa Zarate Primary Care Provider: Raven Agrawal Other Providers: Pushpa Zarate; Curtis Stokes; Titi Ray; Marlon Melgar I.; Kurtis Norman II; Maricarmen Nathan; Kaushal Lockhart; Leobardo Pitt; Stephie Quezada
[2025-01-22 11:26] VITALS: BP 133/83; PULSE 81; TEMP 98.2
[2025-01-22] MEDS: ADVANCED PROBIOTIC 625 MG CAPSULE PO SCH (11:39)
[2025-01-22 11:47] VITALS: O2SAT 95
--- NOTE | 2025-01-22 13:47 | Infectious Disease Consult ---
Date of Service January 22, 2025 Telehealth Information I performed this visit using a real-time telehealth connection between my location and the patients location ([facility]). After connecting through interactive tele-video, patient was identified by name and date of and/or wristband check.Patient (or authorized healthcare inside sales account representative) was informed that this was a telemedicine visit and it was being conducted confidentially over secure lines. My office door was closed and no one else was present in the room with me.Patient (or authorized healthcare inside sales account representative) provided consent to proceed with the visit, expressed an understanding of privacy and security of the telemedicine visit, and gave permission to have a hospital inside sales account representative in the room in order to assist with the visit and to conduct portions of the visit, as needed. I informed the patient (or authorized healthcare inside sales account representative) that I reviewed their record and presented the opportunity for them to ask any questions regarding the visit today. The patient agreed to participate. Assessment & Plan (1) Pyelonephritis: (2) Sepsis: Plan Please discontinue ertapenem and continue oral Levaquin. Increase the Levaquin dose to 750 mg once daily. Continue oral Levaquin for a total duration of 14 days with anticipated end date of February 04, 2025. History of Present Illness History of Present Illness Ms. Hardy is a 59-year-old woman with past medical history of type 2 diabetes with peripheral neuropathy, dyslipidemia, COPD, obstructive sleep apnea on CPAP, hypertrophic cardiomyopathy, HTN, hepatic steatosis, history of TBI, rheumatoid arthritis, immune thrombocytopenia and history of C diff [facility]. Per patient report, she was diagnosed with [facility]TI [facility]25 and completed a 7-day course of Macrobid with only minimal improvement. One day prior to presentation, she started having fevers and chills along with hesitancy and suprapubic pain. On presentation, she was febrile at 38.1, hypertensive at 180/109, tachycardic at 111, and saturating 97% at room air. CT abdomen pelvis obtained on presentation was concerning for bilateral pyelonephritis with nonobstructive left renal calculus. UA showed more than 50 WBCs with no bacteria. ID team was consulted for further recommendations and to help guide antibiotic treatment. Allergies Allergy/AdvReac Type Severity Reaction Status Date / Time No Known Allergies Allergy Verified 12/24/24 07:53 Home Medications Medication Instructions Recorded Confirmed Type gabapentin 600 mg tablet 600 mg PO UD 05/30/18 01/18/25 History duloxetine 60 mg capsule,delayed 60 mg PO QAM 01/08/22 01/18/25 History release rosuvastatin 10 mg tablet 15 mg PO DAILY 01/08/22 01/18/25 History sarilumab 200 mg/1.14 mL 200 mg subcut UD 01/08/22 01/18/25 History subcutaneous syringe (Kevzara) cholecalciferol (vitamin D3) 50 50 mcg PO DAILY 11/23/22 01/18/25 History mcg (2,000 unit) tablet (Vitamin D3) multivitamin 1 tab PO DAILY 05/29/23 01/18/25 History linagliptin 5 mg-metformin ER 1 tab PO QAM 09/18/23 01/18/25 History 1,000 mg tablet,extended release 24 hr (Jentadueto XR) albuterol sulfate 90 mcg/actuation 2 inh inhalation Q4H PRN 12/18/24 01/18/25 History aerosol inhaler SOB/Wheezing alendronate 70 mg tablet 0 mg PO WK 12/18/24 01/18/25 History allopurinol 100 mg tablet 100 mg PO QAM 12/18/24 01/18/25 History aspirin 81 mg tablet 81 mg PO DAILY 12/18/24 01/18/25 History fluticasone fur. 100 mcg-umeclid 1 inh inhalation QAM 12/18/24 01/18/25 History 62.5 mcg-vilant 25 mcg inhalat.powder (Trelegy Ellipta) glipizide 5 mg tablet, extended 15 mg PO QAM 12/18/24 01/18/25 History release 24 hr lisinopril 10 mg tablet 10 mg PO QAM 12/18/24 01/18/25 History mavacamten 10 mg capsule (Camzyos) 10 mg PO QAM 12/18/24 01/18/25 History meloxicam 15 mg tablet 15 mg PO QAM 12/18/24 01/18/25 History metoprolol succinate 50 mg 50 mg PO QAM 12/18/24 01/18/25 History tablet,extended release 24 hr zolpidem 10 mg tablet 10 mg PO HS PRN Insomnia 12/18/24 01/18/25 History estradiol 0.01% (0.1 mg/gram) 1 applic vaginal UD 01/18/25 01/18/25 History vaginal cream metformin 500 mg tablet,extended 1,000 mg PO PM 01/18/25 01/18/25 History release 24 hr L.acidop,casei,lactis,rham-B.lact,lissa 1 cap PO DAILY #14 caps 01/22/25 Rx 625 mg (10 billion cell) capsule (Advanced Probiotic) levofloxacin 750 mg tablet 750 mg PO HS #13 tabs 01/22/25 Rx Patient History Medical History (Updated 01/22/25 @ 00:08 by Cari Grady) Cellulitis of left foot Cellulitis of left lower extremity Hypertension Family History Aunt Breast cancer Grandmother Breast cancer Father Heart disease Social History Smoking Status: Current every day smoker Tobacco Type: Cigarettes Cigarettes Per Day: 1 pack per day; Second Hand Exposure: No; Do You Dip or Chew Tobacco: No; Hx Alcohol Use: No Hx Substance Use: Yes Last Used Substance: Days (ago) Last Used Substance Other:: medical marijuana card Preferred Language: Bermudian Communication Ability: Effective Damascener Required: No Beliefs That Will Affect Care: None Current Living Situation: Spouse Feels Safe at Home: Yes Safety Concerns: Feels Safe At This Time Assistive Devices: Cane, CPAP and Walker Assistive Devices Comment: Denies wanting CPAP while here Review of Systems Negative except for what was mentioned in the H&P. Physical Exam Could not be performed as the visit was conducted via TeleMed. Results & Data Vital Signs (Past 12 Hours) Vital Signs Temp Pulse Pulse Resp BP Pulse Ox O2 Del Method 01/22/25 11:47 95 Room Air 01/22/25 11:25 36.8 C 81 133/83 94 Nasal Cannula 01/22/25 09:30 Room Air 01/22/25 08:00 78 01/22/25 07:33 37 C 84 109/69 93 Room Air 01/22/25 03:45 36.9 C 90 20 123/78 94 Room Air O2 Flow Rate 01/22/25 11:47 01/22/25 11:25 2 01/22/25 09:30 01/22/25 08:00 01/22/25 07:33 01/22/25 03:45 Laboratory Results Microbiology: 01/18: 2 sets of blood culture negative to date 01/18: Urine culture positive for ESBL E coli and Pseudomonas aeruginosa Diagnostic Findings CT abdomen pelvis performed on 01/18: 1. Suspected mild bilateral pyelonephritis 2. Nonobstructing left renal calculus 3. Diverticulosis without definite diverticulitis
--- NOTE | 2025-01-23 10:31 | Coding Query ---
SEPSIS To promote full compliance with coding requirements relating to patient care, physician participation is requested in all cases of burn table operator uncertainty. Please assist us with the question(s) below: Throughout the medical record, you have clearly documented a localized infection and your patient has clinical evidence of a generalized sepsis or severe sepsis. The term urosepsis is a nonspecific entity and is coded as an UTI. If the patient has sepsis, severe sepsis, from an urinary source or some other source, please clarify in your response below. The medical record reflects the following clinical findings: Pt admitted with recurrent UTI E Coli ESBL. Progress notes state possible Sepsis - pt with pyelonephritis. Blood cultures to date negative. Please check below, if applicable, the diagnosis that was treated during this inpatient stay. Thank you. Guido Joseph [employer] [facility] ____ ( )Bacteremia (Nonspecific laboratory finding of bacteria in the blood) Specify Organism ( ) Present on Admission ( ) Not present on admission ( ) Unable to clinically determine ( ) Septicemia (Systemic disease associated with the presence of pathogenic microorganisms in the blood): Specify Organism ( ) Present on Admission ( ) Not present on admission ( ) Unable to clinically determine (x ) Sepsis Specify Organism Specify Associated Condition/Diagnosis (x ) Present on Admission ( ) Not present on admission ( ) Unable to clinically determine ( ) Severe Sepsis (Sepsis associated with acute organ dysfunction) Specify Organism Specify Associated Condition/Diagnosis ( ) Present on Admission ( ) Not present on admission ( ) Unable to clinically determine ( ) Septic Shock (Severe sepsis with acute circulatory failure, unexplained by other causes) ( ) Present on Admission ( ) Not present on admission ( ) Unable to clinically determine ( ) Other, patient has: MTDD
== END 2025-01-22 13:44 | disposition home or self-care (01) | DRG 872 ==
LOC: ED 15:26 → SUATTDRO 18:42 → 2W 18:42